=== PATIENT | female | born 1990 | race Caucasian/White ===

== ENCOUNTER 2022-01-03 22:38 | Emergency (ER) | payer MEDICAID, SELFPAY ==
[2022-01-03 23:00] VITALS: BP 132/69; PULSE 74; RESP 16; TEMP 36.2; O2SAT 100; BMI 48.1
--- NOTE | 2022-01-03 23:40 | ED.GENADULT ---
HPI - General Adult General Chief complaint: Chest Pain Stated complaint: Headache, chest pain Time Seen by Provider: 01/03/22 23:25 History of Present Illness HPI narrative: 31-year-old woman here with significant other with numerous complaints. She is having trouble sleeping. She has kids at home she needs to attend to. See his complaining of chest pain, not necessarily pleuritic, shortness of breath, dizziness, abdominal pain. Was recently diagnosed with delayed gastric emptying. It sounds as though she has an appointment at the end of the month with Gastroenterology in the [facility]-she is not exactly sure with who. She is thirsty. No dysuria frequency urgency. She reports having had a cholecystectomy later inquiry. Pending also a sleep study at the end of the month. Sleep in aided with quetiapine in the past but it has been 5 months since she took it, sounds like dosed to 300 mg. She was just too goofy in the morning she says. She was able to get sleep though. Related Data Home Medications Medication Instructions Recorded Confirmed famotidine 40 mg tablet mg 01/03/22 ibuprofen 800 mg tablet mg 01/03/22 omeprazole 40 mg capsule,delayed mg 01/03/22 release ondansetron 4 mg disintegrating mg 01/03/22 tablet propranolol 20 mg tablet mg 01/03/22 sertraline 100 mg tablet mg 01/03/22 Allergies Allergy/AdvReac Type Severity Reaction Status Date / Time No Known Drug Allergies Allergy Verified 01/03/22 23:23 [facility] Medical History (Updated 01/04/22 @ 02:42 by Lgoan Christianson MD) Gastritis Hypokalemia Social History Smoking Status: Never smoker How often do you have a drink containing alcohol: never AUDIT-C Alcohol total score: 0 Non-prescribed substance use: denies use Exam Narrative: Exam Narrative: NAD. Purple hair. Numerous piercings. Tattoos. 3 in elaborately-constructed nails. Sclera is a little injected. In breathing easily. Lungs are clear. Oropharynx with a tongue piercing. Moist. Neck is supple without LA. Cardiovascular with regular rate and rhythm no murmur rub or gallop. Abdomen is obese. Soft. Nontender though she does report a little bit of flank discomfort to percussion. Const: Vital Signs, click to edit/add: Vital Signs - 24 hr 01/03/22 23:00 Temperature 97.1 F L Pulse Rate [Left P ulse Oximeter] 74 Respiratory Rate 16 Blood Pressure [Le ft Upper Arm] 132/69 Pulse Oximetry 100 Oxygen Delivery Me thod Room Air Documenting provider has reviewed patient's vital signs: yes Course Course Hospital Course: I have reviewed EKG with normal sinus at 74. I also discussed that vitals are reassuring. I discussed giving her fluids medicine to help her with nausea and dizziness beyond her Zofran and meclizine. She wanted to make sure we did labs as well. Reevaluation(s) Reevaluation #1: Overall improved. Laboratory evaluation is not inconsistent with post cholecystectomy and likely fatty liver. Urinalysis however with some nitrate present and blood. She is otherwise though asymptomatic. We will culture the urine. Vital Signs Vital signs: Initial Vital Signs Temperature 97.1 F L 01/03/22 23:00 Temperature Source Temporal Artery Scan 01/03/22 23:00 Pulse Rate 74 01/03/22 23:00 Pulse Rhythm 01/03/22 23:00 Respiratory Rate 16 01/03/22 23:00 Blood Pressure 132/69 01/03/22 23:00 Blood Pressure Mean 90 01/03/22 23:00 Blood Pressure Position Semi-Fowlers 01/03/22 23:00 Pulse Oximetry 100 01/03/22 23:00 Oxygen Delivery Method 01/03/22 23:00 Vital Signs Temperature 97.1 F L 01/03/22 23:00 Pulse Rate 74 01/03/22 23:00 Respiratory Rate 16 01/03/22 23:00 Blood Pressure 132/69 01/03/22 23:00 Pulse Oximetry 100 01/03/22 23:00 Oxygen Delivery Method 01/03/22 23:00 Temperature 97.1 F L 01/03/22 23:00 Pulse Rate 74 01/03/22 23:00 Respiratory Rate 16 01/03/22 23:00 Blood Pressure 132/69 01/03/22 23:00 Pulse Oximetry 100 01/03/22 23:00 Oxygen Delivery Method 01/03/22 23:00 Medical Decision Making MDM Narrative Medical decision making narrative: Urine culture pending. Holding on treatment as asymptomatic. Would treat convincing culture. Lab Data Labs: Lab Results 10/01/22 10/01/22 10/01/22 Range/Units 00:16 00:16 00:16 D-Dimer Quant (PE/DVT) 0.58 H (0.00-0.50) ug/ml Sodium 139 (135-149) mmol/L Potassium 5.3 H (3.6-5.1) mmol/L Chloride 105 (96-114) mmol/L Carbon Dioxide 26 (20-32) mmol/L BUN 13 (5-24) mg/dL Creatinine 0.6 (0.5-1.5) mg/dL Estimated Creat Clear 115.16 Estimated GFR 121 ml/min Glucose 80 (60-115) mg/dL Calcium 8.9 (8.4-10.6) mg/dL Total Bilirubin 1.8 H (0.1-1.5) mg/dL Direct Bilirubin 1.5 H (0.0-0.5) mg/dL AST 70 H (12-35) U/L ALT 22 (4-35) U/L Alkaline Phosphatase 98 (40-150) U/L C-Reactive Protein 0.9 (0.5-1.0) mg/dL Total Protein 8.7 H (6.0-8.3) g/dL Albumin 4.8 (3.3-5.0) g/dL Lipase 131 (23-300) U/L HCG, Qual (Negative) Urine Color (Yellow) Urine Appearance (Clear) Urine pH (5.0-8.5) Ur Specific [place] (1.000-1.030) Urine Protein (Negative) Urine Glucose (UA) (Negative) Urine Ketones (Negative) Urine Blood (Negative) Urine Nitrite (Negative) Urine Bilirubin (Negative) Urine Urobilinogen (0.2-1.0) Ur Leukocyte Esterase (Negative) Urine RBC (0-2) Urine WBC (0-5) Ur Squamous Epith Cells (None-Few) Urine Bacteria (None) SARS-CoV-2 (PCR) (Negative) 01/03/22 01/03/22 01/03/22 Range/Units 00:16 00:44 00:44 D-Dimer Quant (PE/DVT) (0.00-0.50) ug/ml Sodium (135-149) mmol/L Potassium (3.6-5.1) mmol/L Chloride (96-114) mmol/L Carbon Dioxide (20-32) mmol/L BUN (5-24) mg/dL Creatinine (0.5-1.5) mg/dL Estimated Creat Clear Estimated GFR ml/min Glucose (60-115) mg/dL Calcium (8.4-10.6) mg/dL Total Bilirubin (0.1-1.5) mg/dL Direct Bilirubin (0.0-0.5) mg/dL AST (12-35) U/L ALT (4-35) U/L Alkaline Phosphatase (40-150) U/L C-Reactive Protein (0.5-1.0) mg/dL Total Protein (6.0-8.3) g/dL Albumin (3.3-5.0) g/dL Lipase (23-300) U/L HCG, Qual Negative (Negative) Urine Color Brown A (Yellow) Urine Appearance Cloudy A (Clear) Urine pH 5.5 (5.0-8.5) Ur Specific [place] >= 1.030 (1.000-1.030) Urine Protein 3+ A (Negative) Urine Glucose (UA) Negative (Negative) Urine Ketones Negative (Negative) Urine Blood 3+ A (Negative) Urine Nitrite Positive A (Negative) Urine Bilirubin 1+ A (Negative) Urine Urobilinogen 1.0 (0.2-1.0) Ur Leukocyte Esterase Trace A (Negative) Urine RBC 50-100 A (0-2) Urine WBC 0-2 (0-5) Ur Squamous Epith Cells Few (None-Few) Urine Bacteria Few A (None) SARS-CoV-2 (PCR) Negative SARS-CoV-2 (Negative) ECG Data Attestation: I personally reviewed and interpreted this ECG as follows: (Normal sinus rhythm rate of 74) Discharge Plan Discharge Clinical Impression: Insomnia, Malaise Patient Disposition: Home w/ Parent or Adult Condition: Improved Additional Instructions: Given the lightheadedness you were describing, be sure to stay well hydrated. Please follow-up with your appointments with Gastroenterology and sleep study this month as scheduled. You might consider returning again to your Seroquel/Quetiapine for a sleep aid, but taking half the dose that you were taking before. Dado el mareo que estabas describiendo, aseg?rate de mantenerte roxy hidratado. Faye un seguimiento con bekah citas con Gastroenterolog?a y estudio del katiuska?o jori mes seg?n lo programado. Podr?a considerar volver a beltran Seroquel/Quetiapina josafat ayuda para dormir, bess tomando la mitad de la dosis que estaba tomando antes. Prescriptions: No Action ibuprofen 800 mg tablet famotidine 40 mg tablet sertraline 100 mg tablet Label Comments: TAKE 1/2 TABLET BY MOUTH DAILY FOR 1 WEEK THEN 1 DAILY FOR 1 WEEK THEN 1.5 TABLETS DAILY omeprazole 40 mg capsule,delayed release(DR/EC) propranolol 20 mg tablet ondansetron 4 mg tablet,disintegrating Follow Up/Referrals: Merline Barrera MD [Primary Care Provider] - Stand Alone Forms: [facility] Info Instructions
[2022-01-04] MEDS: LORazepam 2 MG/ML inj 0.5 MG IVP (00:50)
[2022-01-04] MEDS: 0.9 % SODIUM CHLORIDE 1000 ml 1,000 ML IV (00:50)
[2022-01-04 01:06] LABS: Albumin* 4.8 g/dL (3.3-5.0)
[2022-01-04 01:07] LABS: Chloride* 105 mmol/L (96-114); Potassium* 5.3 mmol/L (3.6-5.1); Sodium* 139 mmol/L (135-149)
[2022-01-04 01:09] LABS: Alanine Aminotransferase* 22 U/L (4-35); Alkaline Phosphatase* 98 U/L (40-150); Aspartate Amino Transferase* 70 U/L (12-35); Bilirubin Direct* 1.5 mg/dL (0.0-0.5); Bilirubin Total* 1.8 mg/dL (0.1-1.5); Creatinine* 0.6 mg/dL (0.5-1.5); Est. Creatinine Clearance* 115.16; Estimated Glomerular Filt Rate 121 ml/min; Lipase* 131 U/L (23-300); Total Protein* 8.7 g/dL (6.0-8.3)
[2022-01-04 01:10] LABS: Blood Urea Nitrogen* 13 mg/dL (5-24); Carbon Dioxide* 26 mmol/L (20-32)
[2022-01-04 01:11] LABS: Calcium* 8.9 mg/dL (8.4-10.6); Glucose* 80 mg/dL (60-115)
[2022-01-04 01:12] LABS: HCG Qualitative* Negative (Negative)
[2022-01-04 01:13] LABS: C Reactive Protein* 0.9 mg/dL (0.5-1.0)
[2022-01-04 01:14] LABS: Appearance Urine Cloudy (Clear); Bilirubin Urine 1+ (Negative); Blood Urine 3+ (Negative); Color Urine Brown (Yellow); Glucose Urine Negative (Negative); Ketones Urine Negative (Negative); Leukocyte Esterase Urine Trace (Negative); Nitrite Urine Positive (Negative); Protein Urine 3+ (Negative); Specific Gravity Urine >= 1.030 (1.000-1.030); pH Urine 5.5 (5.0-8.5)
[2022-01-04 01:14] LABS: SARS PCR* Negative SARS-CoV-2 (Negative)
[2022-01-04 01:15] LABS: D Dimer Quantitative* 0.58 ug/ml (0.00-0.50)
[2022-01-04 01:23] LABS: Bacteria Urine Few; RBC Urine 50-100 (0-2); Squamous Epithelial Cell Urine Few (None-Few); WBC Urine 0-2 (0-5)
== END 2022-01-04 02:51 | disposition home or self-care (01) ==
PROVIDERS: Emergency Provider Family Medicine; PCP Family Medicine
DX: G47.00 Insomnia, unspecified (principal); R53.81 Other malaise
CPT/HCPCS: 36415; 80048; 80076; 81001; 83690; 84703; 85379; 86140; 87086; 87635; 93005; 94761; 96361; 96374; 99283; 99284; J2060; J7030

== ENCOUNTER 2022-01-06 20:07 | Outpatient (CLI) | payer MEDICAID, SELFPAY | END 2022-01-06 20:08 | disposition home or self-care (01) | PROVIDERS: PCP Family Medicine; Visit Provider Internal Medicine | DX: G47.33 Obstructive sleep apnea (adult) (pediatric) (principal) | CPT/HCPCS: 95810 ==

== ENCOUNTER 2022-03-16 07:49 | Emergency (ER) | payer MEDICAID, SELFPAY ==
[2022-03-16 07:53] VITALS: BP 135/88; PULSE 100; RESP 18; TEMP 36.3; BMI 46.0
[2022-03-16 08:33] LABS: Appearance Urine Clear (Clear); Bilirubin Urine 1+ (Negative); Blood Urine Negative (Negative); Color Urine Yellow (Yellow); Glucose Urine Negative (Negative); Ketones Urine 2+ (Negative); Leukocyte Esterase Urine Negative (Negative); Nitrite Urine Negative (Negative); Protein Urine Negative (Negative); Urobilinogen Urine 0.2 (0.2-1.0); pH Urine 5.5 (5.0-8.5)
[2022-03-16 08:38] LABS: RBC Urine 0-2 (0-2); Squamous Epithelial Cell Urine Few (None-Few); WBC Urine 0-2 (0-5)
--- NOTE | 2022-03-16 08:45 | CRLHL7_ITS ---
For Patients: As a result of the Century Cures Act, medical imaging exams and procedure reports are released immediately into your electronic medical record. You may view this report before your referring provider. If you have questions, please contact your health care provider. INDICATION: First trimester scan, establish dates. COMPARISON: None. TECHNIQUE: Real-time hooks-scale imaging of the pelvis was performed. FINDINGS: A small gestational sac is present within the endometrial canal with a mean sac diameter of 8.6 millimeters corresponding to a 5 week 3 day gestation. 3 millimeter yolk sac is present. No pole. No ectopic . No pelvic free fluid. Ovaries normal. IMPRESSION: 5 week 3 day gestational sac in the endometrial canal without pole. No ectopic. Follow-up ultrasound in 11-14 days recommended. Dictated by Logan Felix MD @ 03/16/2022 10:30:55 AM (Electronically Signed)
[2022-03-16] MEDS: 0.9 % SODIUM CHLORIDE 1000 ml 1,000 ML IV (09:00)
[2022-03-16] MEDS: MORPHINE 4 MG/ML INJ IVP (09:00)
[2022-03-16 09:05] LABS: Basophils Absolute Auto 0.02 K/uL (0.00-0.30); Basophils Percent Auto 0.2 % (0.0-3.0); Eosinophils Absolute Auto 0.05 K/uL (0.00-0.50); Eosinophils Percent Auto 0.5 % (0.0-7.0); Hemoglobin* 13.6 gm/dL (12.0-16.0); Immature Granulocytes Abs Auto 0.02 K/uL (0.00-0.30); Immature Granulocytes Pct Auto 0.2 %; Lymphocytes Percent Auto 18.9 % (20-44); Mean Corpuscular HGB Conc 33 gm/dL (32-36); Mean Corpuscular Hemoglobin 29 pg (26-34); Mean Corpuscular Volume 89 fL (80-100); Monocytes Percent Auto 7.2 % (0.0-11.0); Platelet Count* 342 K/uL (140-440); RDW Coefficient of Variation % 13.5 % (11.5-15.5); Red Blood Count 4.62 m/uL (4.00-5.20); White Blood Count* 9.47 K/uL (4.50-11.00)
[2022-03-16 09:12] LABS: Slide Review Reflex No
--- OUTSIDE RECORDS SUMMARY | 2022-03-16 09:12 | XMS_ITS | Clinical Summary ---
:1990 Author Organization [facility] Address [address] [place] [address] Care Team Providers Name Role Phone [facility] Unavailable [phone] Doctor, No Primary Care Provider Unavailable Allergies No known active allergies Medications Medication Sig Dispensed Refills Start Date End Date Status amitriptyline (ELAVIL) Take 1 tablet (10 0 2 Active 10 mg oral tablet mg) by mouth at bedtime. dicyclomine (BENTYL) Take 1 tablet (20 0 02/10/2022 Active 20 mg oral tablet mg) by mouth three times a day. famotidine (PEPCID) 40 Take 1 tablet (40 0 2 Active mg oral tablet mg) by mouth once daily. gabapentin (NEURONTIN) Take 1 capsule 0 02/04/2022 Active 300 mg oral capsule (300 mg) by mouth Twice a Day. Take 1 capsule daily in the morning, 1 capsule daily in the afternoon, and 3 capsules nightly before bed. lubiprostone (AMITIZA) Take 1 capsule (24 0 02/11/20 22 Active 24 mcg oral Cap mcg) by mouth twice a day before breakfast and dinner. metFORMIN (GLUCOPHAGE) Take 1 tablet (500 0 03/03/20 21 Active 500 mg oral tablet mg) by mouth twice a day with breakfast and dinner. propranoloL (INDERAL) Take 1 tablet (20 0 03/03/2021 Active 20 mg oral tablet mg) by mouth twice a day. QUEtiapine (SEROQUEL) Take 1 tablet (300 0 1 Active 300 mg oral tablet mg) by mouth at bedtime. sertraline (ZOLOFT) Take 1.5 tablets 0 02/04/2022 Active 100 mg oral tablet (150 mg) by mouth once daily. sucralfate (CARAFATE) Take 1 tablet (1 0 12/13/2021 Active 1 gram oral tablet g) by mouth three times a day before meals and at bedtime. gabapentin (NEURONTIN) Take 3 capsules 0 Active 300 mg oral capsule (900 mg) by mouth at bedtime. omeprazole (PRILOSEC) Take 1 capsule (40 0 1 Active 40 mg oral delayed mg) by mouth every release capsule morning before breakfast. Active Problems Problem Noted Date Fall from slipping on ice 02/19/2022 Fall due to slipping on ice or snow, initial encounter 02/19/2022 Puncture wound of right thigh 02/19/2022 IUFD (intrauterine ) 12/03/2012 Migraine headache 12/03/2012 Hypertension in 12/03/2012 Resolved Problems Problem Noted Date Resolved Date Dysuria in 11/15/2012 12/03/2012 Encounters Date Type Specialty Care Team Description 02/19/2022 Emergency Emergency Medicine Reshma Cook, Fall due to slipping on MD ice or snow, [facility]22 Travel from Last 3 Months Family History Medical History Relation Comments Arthritis Maternal Grandmother Diabetes Maternal Grandmother Cancer Mother barn worker cancer of unknow n origin to patient Relation Status Comments Maternal Grandmother Mother Social History Tobacco Use Types Packs/Day Years Used Date Smoking Tobacco: Every Day Smokeless Tobacco: Never Alcohol Use Standard Drinks/Week Comments No 0 (1 standard drink = 0.6 oz pure alcoho l) Sex Assigned at Date Recorded Not on file COVID-19 Exposure Response Date Recorded In the last 10 days, have you been in contact with No / Unsu re 02/19/2022 3:48 PM [facility] someone who was confirmed or suspected to have Coronavirus/COVID-19? Last Filed Vital Signs Vital Sign Reading Time Taken Comments Blood Pressure 131/90 02/19/2022 6:00 PM [facility] [employer] Pulse 79 02/19/2022 6:00 PM [facility] [employer] Temperature 36.5 ??C (97.7 ??F) 02/19/2022 4:09 PM [facility] Respiratory Rate 21 02/19/2022 6:00 PM [facility] Oxygen Saturation 99% 02/19/2022 6:00 PM [facility] [employer] Inhaled Oxygen Concentration - - Weight 112.5 kg (248 lb) 12/01/2012 10:03 AM CDT Height 162.6 cm (5' 4) 12/01/2012 10:03 AM CDT Body Mass Index 42.57 12/01/2012 10:03 AM CDT Plan of Treatment Health Maintenance Due Date Last Done Comments Hepatitis C Screening 1990 Pap Smear 1990 Pneumococcal <65 (1 - PCV) 1994 COVID-19 Vaccine (3 - Booster for 03/11/2021 01/14/2021, Pfizer series) Adult Tetanus Booster 01/29/2027 01/29/2017, 11/10/2012 Influenza Vaccine Completed 12/10/2021, 01/28/2021, 03/13/2020, Additional history exists Procedures Procedure Name Priority Date/Time Associated Diagnosis Comme nts SARS-COV-2 STAT 02/19/2022 5:04 PM Results f or this DETECTION BY ALISE [facility] [employer] [employer] [facility] procedure are in PCR the results section. from Last 3 Months Results COVID-19 (Screening) (02/19/2022 5:04 PM [facility] [employer] [facility]) Analysis Performed At Patho logist Time Signature SARS-CoV-2 SARS-CoV-2 SARS-CoV-2 REBECCA ALISE 02/20/2022 ONAGA RNA by PCR RNA Not RNA Not 6800 2:06 PM [facility] Detected Detected [facility] Specimen (Source) Anatomical Location / Collection Collection Jeffrey e Received Time Laterality Method / Volume Nasopharynx NASOPHARYNGEAL 02/19/2022 5:04 02/19/2022 STRUCTURE / Unknown PM [facility] 5:16 PM [facility] [employer] [employer] [facility] Alonzo Frias PA-C MICROBIOLOGY ORDERABLE Performing Organization Address City/State/ZIP Code Phon e Number [facility] [address] [place] [address] LABORATORY from Last 3 Months Insurance Payer Benefit Plan / Subscriber ID Effective Dates Phone Addre ss Type Group UCARE UCARE [id number] 2022-Present [phone] [place] [address] Advance Directives For more information, please contact: [phone] Latest Code Status on File Code Status Date Activated Date Inactivated Comments Full Code 12/02/2012 1:52 PM 12/05/2012 6:57 PM Question Answer Comments How was code status determined? Patient Care Teams Hob Grinder Relationship Specialty Start Date End Date [facility] PCP - [facility] [place] [address] [place] [phone] Doctor, No PCP - General Radiology 02/19/22 No ad
--- OUTSIDE RECORDS SUMMARY | 2022-03-16 09:12 | XMS_ITS | Encounter Summary ---
:1990 Author Organization [facility] Address [address] [place] [address] Care Team Providers Name Role Phone Unavailable Primary Care Provider Unavailable Reason for Visit Reason Comments Advice Only missed period Appointment Request (Routine) - Closed Specialty Diagnoses / Procedures Referred By Contact Refer red To Contact Obstetrics and Gynecology Referral ID Status Reason Start Date Expiration Date Visits Requ ested Visits Authorized [id number] Closed 10/01/2020 10/01/2021 1 1 Encounter Details Date Type Department Care Team Description 10/16/2020 Office Visit Department of Saul Martinez Infertilit y Female Obstetrics and Hernandez (Primary Dx) Gynecology in [address] [place] [id number] [place], [place] [phone] (Work) [phone] Social History Tobacco Use Types Packs/Day Years Used Date Smoking Tobacco: Every Day Cigarettes Smokeless Tobacco: Never Sex Assigned at Date Recorded Not on file documented as of this encounter Last Filed Vital Signs Vital Sign Reading Time Taken Comments Blood Pressure 102/76 10/16/2020 1:05 PM CDT Pulse - - Temperature - - Respiratory Rate - - Oxygen Saturation - - Inhaled Oxygen Concentration - - Weight 134 kg (294 lb 13.8 oz) 10/16/2020 1:05 PM CDT Height - - Body Mass Index 49.73 08/16/2020 10:22 AM CDT documented in this encounter Progress Notes Saul Martinez M.D. - 10/16/2020 1:15 PM CDT CLINIC NOTE SUBJECTIVE CHIEF COMPLAINT/REASON FOR VISIT Chief Complaint Patient presents with ??? Advice Only missed period HISTORY OF PRESENT ILLNESS Kayleigh Stahl is a 30 y.o. who presents for follow-up, previously seen August 16. She reports deep slightly left of center pain for the past week as well as a missed period. From prior history: Bilateral constant though at times sharp pelvic pain x4 months. She has had this in the past as well. Likely hemorrhagic cyst seen on recent pelvic US. Dyspareunia when cyst are present. No pain with sex otherwise. Prior left ovarian cystectomy in 2012. She reports having several similar cysts in the past. She was advised by her primary care provider to use hormonal menstrual suppression to reduce the recurrence of the cyst however she would like to get . Has been tryingfor one year. New partner with no proven fertility. She has 3 prior pregnancies with 2 different FOBs, no prior issues with fertility. She removed her IUD and has been with her current partner for the past year they have sex daily. Historically periods are monthly, 5d VB, pain in first 3d. Periods have always been normal. No pelvic surgical history other than the noted cystectomy in 2013. No history of pelvic inflammatory disease. Medical history is notable for obesity however she states she has been obese for a long time, though she has gained about 20 lb in the last year. She is up-to-date on Papand STI screening. Recent diabetes screen was negative. OBSTETRICAL HISTORY: P3002 with hx of term IUFD GYNECOLOGIC HISTORY: Patient's last menstrual period was 08/30/2020 (exact date). MEDICAL HISTORY No past medical history on file. SURGICAL HISTORY No past surgical history on file. FAMILY HISTORY No family history on file. SOCIAL HISTORY Social History Socioeconomic History ??? Marital status: Single Spouse name: None ??? Number of children: None ??? Years of education: None ??? Highest education level: None Occupational History ??? None Tobacco Use ??? Smoking status: Current Every Day Smoker Types: Cigarettes ??? Smokeless tobacco: Never Used Vaping Use ??? Vaping Use: never used Substance and Sexual Activity ??? Alcohol use: None ??? Drug use: None ??? Sexual activity: None Other Topics Concern ??? None Social History Narrative ??? None Social Determinants of Health Financial Resource Strain: ??? Difficulty of Paying Living Expenses: Food Insecurity: ??? Worried About Running Out of Food in the Last Year: ??? Ran Out of Food in the Last Year: Transportation Needs: ??? Lack of Transportation (Medical): ??? Lack of Transportation (Non-Medical): Physical Activity: ??? Days of Exercise per Week: ??? Minutes of Exercise per Session: Stress: ??? Feeling of Stress : Social Connections: ??? Frequency of Communication with Friends and Family: ??? Frequency of Social Gatherings with Friends and Family: ??? Attends Restoration Services: ??? Active Member of Clubs or Organizations: ??? Attends Club or Organization Meetings: ??? Marital Status: Intimate Partner Violence: ??? Fear of Current or Ex-Partner: ??? Emotionally Abused: ??? Physically Abused: ??? Sexually Abused: ALLERGIES/CONTRAINDICATIONS Patient has no known allergies. CURRENT MEDICATIONS Current Outpatient Medications Medication Sig Dispense Refill ??? busPIRone (BUSPAR) 10 mg tablet ??? ibuprofen (ADVIL,MOTRIN) 600 mg tablet Take 600 mg by mouth every 6 (six) hours as needed for pain. ??? omeprazole (PriLOSEC OTC) [address] tablet TAKE 1 TABLET BY MOUTH EVERY DAY BEFORE A MEAL ??? propranoloL (INDERAL) 20 mg tablet Take 20 mg by mouth 2 (two) times a day. No current facility-administered medications for this visit. REVIEW OF SYSTEMS A 10 point Review of Systems was negative, other than as noted in the History of Present Illness. OBJECTIVE PHYSICAL EXAMINATION VITAL SIGNS Vitals: 10/16/20 1305 BP: 102/76 Weight: 134 kg Body mass index is 49.73 kg/m??. General: Alert, oriented, appropriately interactive, in no acute distress. Abdomen: Soft, mid pelvic tenderness with remainder of abdomen nontender, nondistended. No masses. Musculoskeletal: Normal gait. Symmetric movements of upper extremities and lower extremities. Lower Extremities: Nontender, no edema. DIAGNOSTICS LABS: Recent Results (from the past 72 hour(s)) Test, POCT, Urine (lab) Collection Time: 10/16/20 1:31 PM Result Value Test, POCT, U Negative Bacterial Culture, Aerobic + Susc, Urine Collection Time: 10/16/20 1:31 PM Specimen: Urine, Midstream Specimen Source Site: Urine Result Value Urine Culture Mixed gennaro. (A) Hemoglobin 14.5 Progesterone undetectable TSH 1.5 Prolactin 11.4 Estradiol 37 FSH 6.2 LH 2.3 CMP wnl other than elevated BG A1c 5.9 STI swabs negative (06/23) Pap NILM, HPV- (06/23) ?? Pelvic ultrasound 07/23/2020 Uterus: 9.2 x 5.5 x 4.5 cm. ??Normal echotexture of the myometrium. ??No masses. ?? Endometrium: Transvaginal imaging was performed to better evaluate the endometrium. ??Fourteen mm inthickness. The endometrium is mildly heterogeneous in appearance. No sign of endometrial mass or fluid. ?? Right ovary: 4.4 x 3.3 x 4.0 cm. ??There is a 3.5 x 2.3 x 3.4 cm cystic lesion on the right ovary containing debris and septations. Normal arterial blood flow. ?? Left ovary: Not clearly seen. Cul-de-sac: No significant free fluid. ? IMPRESSION: Likely hemorrhagic cyst on the right ovary. The left ovary was not clearly seen on this exam. ?? The following portions of the patient's history were reviewed and updated as appropriate: allergies,current medications, family history, medical history, social history, surgical history and problem list. ASSESSMENT / PLAN Kayleigh Stahl is a 30 y.o. who presents for follow-up as well as recently missed menstrualcycle as well as pelvic pain. Point of care urine test was negative today ruling out ectopic . Concern for possible UTI based on symptoms however urine culture showed mixed gennaro. 1. Infertility Female - Suspecting male factor based on history including normal prior pregnancies with different partners, likely normal ovulatory cycles based on history, however recent day 21 lab was negative for ovulation. Planning for partner to collect semen analysis. Would consider ovulation induction as next step if semen it is normal. - Test, POCT, Urine (lab) - Bacterial Culture, Aerobic + Susc, Urine; Future - Bacterial Culture, Aerobic + Susc, Urine Saul Martinez M.D. 10/17/2020 9:19 PM CDT documented in this encounter Plan of Treatment Not on filedocumented as of this encounter Procedures Procedure Name Priority Date/Time Associated Diagnosis Comme nts BACTERIAL CULTURE, Routine 10/16/2020 1:31 PM Infertility Fema le Results for this AEROBIC + SUSC, CDT procedure ar e in URINE the results section. TEST, Routine 10/16/2020 1:31 PM Infertility Female Results for this POCT, U (LAB) CDT procedure are in the results section. documented in this encounter Results (ABNORMAL) Bacterial Culture, Aerobic + Susc, Urine (10/16/2020 1:31 PM CDT) Analysis Performed At Patho logist Time Signature Urine Culture Mixed 10/17/2020 MKTO gennaro. (A) 4:15 PM CDT Specimen Anatomical Collection Method Collection Time Receive d Time (Source) Location / / Volume Laterality Urine (Urine, 10/16/2020 1:31 PM 10/17/19 21 7:16 Midstream) CDT PM CDT Comment: Specimen Source Site: Urine Saul Martinez M.D. LAB MICROBIOLOGY - GENERAL O RDERABLES Performing Organization Address City/[facility]/ZIP Code Phon e Number [facility]- [address] [place] [id number] [place] [address] System [address] Test, POCT, Urine (lab) (10/16/2020 1:31 PM CDT) P athologist Signature Negative 10/16/2020 FB60 Test, POCT, U 1:53 PM CDT Specimen Anatomical Collection Method Collection Time Receive d Time (Source) Location / / Volume Laterality Urine (Urine, 10/16/2020 1:31 PM 10/17/19 21 1:42 Clean Catch) CDT PM CDT Saul Martinez M.D. LAB POCT ORDERABLES - DEVICE Performing Organization Address City/[facility]/ZIP Code Phon e Number [address] [place] [address] [facility] [address] [place] [address] System [address] documented in this encounter Visit Diagnoses Diagnosis Infertility Female - Primary documented in this encounter
--- OUTSIDE RECORDS SUMMARY | 2022-03-16 09:12 | XMS_ITS | Encounter Summary ---
:1990 Author Organization [facility] Address [address] [place] [address] Care Team Providers Name Role Phone Elsewhere, Pcp Primary Care Provider Unavailable Encounter Details Date Type Department Care Team Description 10/16/2020 Clinical Communication Department of Saul Martinez, Obstetrics and MLarisa Gynecology in [address] [place] [id number] [place], [place] [phone] (Work) [phone] Social History Tobacco Use Types Packs/Day Years Used Date Smoking Tobacco: Every Day Cigarettes Smokeless Tobacco: Never Sex Assigned at Date Recorded Not on file documented as of this encounter Miscellaneous Notes Telephone Encounter - Rowena Palmer RJazz - 10/16/2020 3:13 PM CDT Spoke with patient. Please see result note for details. Telephone Encounter - Jose Sharma - 10/16/2020 2:55 PM CDT Patient called in, returning call from MANAGER HOME nurse regarding results. Unable to get a hold of nurse. Please call patient back via student records specialist. documented in this encounter Plan of Treatment Not on filedocumented as of this encounter Visit Diagnoses Not on filedocumented in this encounter Care Teams Gang Boss Relationship Specialty Start Date End Date Elsewhere, Pcp PCP - General Family Medicine 10/24/20 documented as of this encounter
--- OUTSIDE RECORDS SUMMARY | 2022-03-16 09:12 | XMS_ITS | Encounter Summary ---
:1990 Author Organization [facility] Address [address] [place] [address] Care Team Providers Name Role Phone Elsewhere, Pcp Primary Care Provider Unavailable Encounter Details Date Type Department Care Team Description 10/24/2020 Hospital Encounter Department of Burt Winchester S, Pain Le ft Lower Quadrant; Laboratory Medicine CONSTRUCTION STONEMASON, C.N.P. Pain Pel bowen Female; in [place], Discharge Vagi nal [place] [address] [place] [id number] Social History Tobacco Use Types Packs/Day Years Used Date Smoking Tobacco: Every Day Cigarettes Smokeless Tobacco: Never Sex Assigned at Date Recorded Not on file documented as of this encounter Medications at Time of Discharge Medication Sig Dispensed Refills Start Date End Date busPIRone (BUSPAR) 10 mg 0 07/09/2020 tablet ibuprofen (ADVIL,MOTRIN) Take 600 mg by mouth 0 600 mg tablet every 6 (six) hours as needed for pain. omeprazole (PriLOSEC OTC) TAKE 1 TABLET BY 0 03/0 12/[address] tablet MOUTH EVERY DAY BEFORE A MEAL propranoloL (INDERAL) 20 Take 20 mg by mouth 2 0 08/13/2020 mg tablet (two) times a day. documented as of this encounter Plan of Treatment Not on filedocumented as of this encounter Procedures Procedure Name Priority Date/Time Associated Diagnosis Comme nts CBC WITH Routine 10/24/2020 9:18 AM Pain Left Lower Result s for this DIFFERENTIAL, B CDT Quadrant procedure are in Pain Pelvic Fema le the results Discharge Vaginal section. documented in this encounter Results (ABNORMAL) CBC with Differential, Blood (10/24/2020 9:18 AM CDT) [facility] Method Time Signature Hemoglobin 14.7 11.6 - 10/24/2020 FB60 15.0 g/dL 9:42 AM CDT Hematocrit 43.8 35.5 - 10/24/2020 FB60 44.9 % 9:42 AM CDT Erythrocytes 4.96 3.92 - 10/24/2020 FB60 5.13 9:42 AM CDT x10(12)/L MCV 88.3 78.2 - 10/24/2020 FB60 97.9 fL 9:42 AM CDT RBC Distrib Width 14.2 12.2 - 10/24/2020 FB60 16.1 % 9:42 AM CDT Platelet Count 364 157 - 371 10/24/2020 FB60 x10(9)/L 9:42 AM CDT Leukocytes 15.1 (H) 3.4 - 9.6 10/24/2020 FB60 x10(9)/L 9:42 AM CDT Neutrophils 10.18 (H) 1.56 - 10/24/2020 FB60 6.45 9:42 AM CDT x10(9)/L Lymphocytes 3.67 (H) 0.95 - 10/24/2020 FB60 3.07 9:42 AM CDT x10(9)/L Monocytes 0.98 (H) 0.26 - 10/24/2020 FB60 0.81 9:42 AM CDT x10(9)/L Eosinophils 0.20 0.03 - 10/24/2020 FB60 0.48 9:42 AM CDT x10(9)/L Basophils 0.03 0.01 - 10/24/2020 FB60 0.08 9:42 AM CDT x10(9)/L Specimen Anatomical Collection Method Collection Time Receive d Time (Source) Location / / Volume Laterality Blood (Blood, 10/24/2020 9:18 AM 10/25/19 9:18 Venous) CDT AM CDT Burt Winchester APRN, C.N.P. LAB BLOOD ADD-ON Performing Organization Address City/State/ZIP Code Phon e Number [facility]- [facility] [place] [address] [facility] [address] [place] [address] System in [place] [address] documented in this encounter Visit Diagnoses Diagnosis Pain Left Lower Quadrant Pain Pelvic Female Discharge Vaginal documented in this encounter Care Teams Gas Meter Repair Supervisor Relationship Specialty Start Date End Date Elsewhere, Pcp PCP - General Family Medicine 10/24/20 documented as of this encounter
--- OUTSIDE RECORDS SUMMARY | 2022-03-16 09:12 | XMS_ITS | Encounter Summary ---
:1990 Author Organization [facility] Address [address] [place] [address] Care Team Providers Name Role Phone Unavailable Primary Care Provider Unavailable Reason for Visit Reason Comments Pelvic Pain Appointment Request (Routine) - Closed Specialty Diagnoses / Procedures Referred By Contact Refer red To Contact Obstetrics and Gynecology Referral ID Status Reason Start Date Expiration Date Visits Requ ested Visits Authorized [id number] Closed 08/09/2020 08/09/2021 1 1 Encounter Details Date Type Department Care Team Description 08/16/2020 Comprehensive Visit Department of Saul Martinez Female Obstetrics and Hernandez Hagan (Primary Dx) Gynecology in [address] [place] [phone] [place] [address] [place], [place] (Work) [phone] Social History Tobacco Use Types Packs/Day Years Used Date Smoking Tobacco: Every Day Smokeless Tobacco: Never Tobacco Cessation: Counseling Given: Yes Sex Assigned at Date Recorded Not on file documented as of this encounter Last Filed Vital Signs Vital Sign Reading Time Taken Comments Blood Pressure 108/78 08/16/2020 10:22 AM CDT Pulse 68 08/16/2020 10:22 AM CDT Temperature - - Respiratory Rate 16 08/16/2020 10:22 AM CDT Oxygen Saturation - - Inhaled Oxygen Concentration - - Weight 137 kg (301 lb 2.4 oz) 08/16/2020 10:22 AM CDT Height 164 cm (5' 4.57) 08/16/2020 10:22 AM CDT Body Mass Index 50.79 08/16/2020 10:22 AM CDT documented in this encounter Patient Instructions Patient InstructionsSaul Martinez M.D. - 08/16/2020 10:30 AM CDT Present to lab on day 3 of your period. Also present to lab on day 21. documented in this encounter Progress Notes Saul Martinez M.D. - 08/16/2020 10:30 AM CDT Consult Note Consult requested by Radha Raines PA SUBJECTIVE CHIEF COMPLAINT/REASON FOR VISIT Chief Complaint Patient presents with ??? Pelvic Pain . HISTORY OF PRESENT ILLNESS Kayleigh Stahl is a 30 y.o. P3002 who presents in consultation for 4 month history of deep pelvic pain. She would also like to talk about fertility. Bilateral constant though at times sharp pelvic pain x4 months. She has had this in the past as well. Likely hemorrhagic cyst seen on recent pelvic US. Dyspareunia when cyst are present. No pain with sex otherwise. Prior left ovarian cystectomy in 2012. She reports having several similar cysts in the p ast. She was advised by her primary care provider to use hormonal menstrual suppression to reduce the recurrence of the cyst however she would like to get . Desires , has been trying for one year. New partner with no proven [...] history other than the noted cystectomy in 2012. No history of pelvic inflammatory disease. Medical history is notable for obesity however she states she has been obese for a long time, though she has gained about 20 lb in the last year. She is up-to-date on Pap and STI screening. Recent diabetes screen was negative. OBSTETRICAL HISTORY: P3002 with hx of term IUFD GYNECOLOGIC HISTORY: Patient's last menstrual period was 07/31/2020.. Menses as above MEDICAL HISTORY No past medical history on file. SURGICAL HISTORY No past surgical history on file. FAMILY HISTORY No family history on file. SOCIAL HISTORY Social History Socioeconomic History ??? Marital status: Single Spouse name: Not on file ??? Number of children: Not on file ??? Years of education: Not on file ??? Highest education level: Not on file Occupational History ??? Not on file Tobacco Use ??? Smoking status: Current Every Day Smoker ??? Smokeless tobacco: Never Used Vaping Use ??? Vaping Use: never used Substance and Sexual Activity ??? Alcohol use: Not on file ??? Drug use: Not on file ??? Sexual activity: Not on file Other Topics Concern ??? Not on file Social History Narrative ??? Not on file Social Determinants of Health Financial Resource Strain: [...] Gatherings with Friends and Family: ??? Attends Confucianism Services: ??? Active Member of Clubs or [...] Illness. OBJECTIVE PHYSICAL EXAMINATION VITAL SIGNS Vitals: 08/16/20 1022 BP: 108/78 Pulse: 68 Resp: 16 Weight: (!) 137 kg Height: 164 cm Body mass index is 50.79 kg/m??. General: Alert, oriented, appropriately interactive, in no acute distress. Cardiovascular: Regular rate and rhythm. Respiratory: Clear to auscultation bilaterally. Good effort, without distress. Abdomen: Soft, obese, nontender, nondistended. No masses. Musculoskeletal: Normal gait. Symmetric movements of upper extremities and lower extremities. Lower Extremities: Nontender, no edema. DIAGNOSTICS LABS: Hemoglobin 14.5 A1c 5.9 STI swabs negative (06/23) Pap NILM, HPV- (06/23) Pelvic ultrasound 07/23/2020 Uterus: 9.2 x 5.5 [...] was not clearly seen on this exam. The following portions of the patient's history were reviewed and updated as appropriate: allergies,current medications, family history, medical history, social history, surgical history and problem list. ASSESSMENT / PLAN Kayleigh Stahl is a 30 y.o. who presents in consultation as noted above. Pelvic pain - we discussed the nature and natural history of functional and hemorrhagic ovarian cysts. We discussed the mechanism of hormonal suppression. I would recommend combined hormonal contraception in the future when no longer desired fertility to suppress ovarian cyst recurrence. Her current pain is mild and we will watched the cyst for now. 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 It would seem that she has normal ovulatory cycles, and no history of fertility complications in the past. We will collect routine infertility laboratory evaluation which has been ordered. We also discussed possible HSG in the future. I am recommending male evaluation including semen analysis, however partners immigration status and lack of insurancecomplicate this. Labs to be collected on day 3 and day 21 of her next cycles. Follow-up pending lab results. - Follicle-Stimulating Hormone (FSH), Serum; Future - LH (Luteinizing Hormone); Future - Estradiol, Rapid, Immunoassay - (for rapid assessment of ovarian status); Future - Prolactin; Future - S-TSH (Thyroid-Stimulating Hormone - Sensitive); Future - Progesterone Level; Future Saul Martinez M.D. 08/16/2020 10:54 AM CDT documented in this encounter Plan of Treatment Not on filedocumented as of this encounter Results Progesterone Level (09/20/2020 1:32 PM CDT) athologist Signature Progesterone, S <0.20 See Note* 09/21/2020 DTL ng/mL 8:12 AM CDT Comment: Reference intervals are central 90th % o f healthy population. Follicular phase: <=0.89 ng/mL Ovulation: <=12 ng/mL Luteal phase: 1.8-24 ng/ml Post-menopausal: <0.20 ng/mL 1st Trimester: 11-44 ng/mL 2nd Trimester: 25-83 ng/mL 3rd Trimester: 58-214 ng/mL Specimen Anatomical Collection Method Collection Time Receive d Time (Source) Location / / Volume Laterality Blood (Blood, 09/20/2020 1:32 PM 09/22/19 21 7:43 Venous) CDT AM CDT Saul Martinez M.D. LAB BLOOD ADD-ON Performing Organization Address City/State/ZIP Code Phon e Number [facility] - [address] [place], [place] [address] [facility] [place] [address] Laboratories-[facility] [address] S-TSH (Thyroid-Stimulating Hormone - Sensitive) (09/03/2020 11:12 AM CDT) athologist Signature TSH, Sensitive 1.5 0.3 - 4.2 09/03/2020 [place] mIU/L 2:08 PM CDT Specimen Anatomical Collection Method Collection Time Receive d Time (Source) Location / / Volume Laterality Blood (Blood, 09/03/2020 11:12 09/03/2020 1:36 Venous) AM CDT PM CDT Saul Martinez M.D. LAB BLOOD ADD-ON Performing Organization Address City/State/ZIP Code Phon e Number [facility]- [address] [place] [address] [facility] [address] System in [place] [address] Prolactin (09/03/2020 11:12 AM CDT) athologist Signature Prolactin Total 11.4 4.8 - 23.3 09/04/2020 DTL ng/mL 8:20 AM CDT Comment: ----ADDITIONAL INFORMATION---- The testing method is an electrochemilum inescence assay manufactured by [employer] and performed on the Irma system. Values obtained with different assay met hods or kits may be different and cannot be used inte rchangeably. Test results cannot be interpreted as ab solute evidence for the presence or absence of malignant disease. Specimen Anatomical Collection Method Collection Time Receive d Time (Source) Location / / Volume Laterality Blood (Blood, 09/03/2020 11:12 09/04/2020 7:09 Venous) AM CDT AM CDT Saul Martinez M.D. LAB BLOOD ADD-ON Performing Organization Address City/State/ZIP Code Phon e Number [facility] - [address] [place], [place] [address] [facility] [place] [address] Laboratories-[facility] 200 [facility] Estradiol, Rapid, Immunoassay - (for rapid assessment of ovarian status) (09/03/2020 11:12 AM CDT) athologist Signature Estradiol 37 pg/mL 09/03/2020 MKTO Rapid, 3:43 PM CDT Immunoassay, S Comment: Biotin has been identified by the yudy haq as a potential interfering substance. ??Higher concentr ations of biotin may be found in multivitamins, hair/nail supple ments, and workout supplements. ??If the result does not [facility] clinical observations, repeat testing after patient refrains fr om the use of supplements for at least 12 hours. ----REFERENCE VALUE---- Premenopausal: 15-350 pg/mL Postmenopausal: <10 pg/mL Estradiol concentrations vary widely throughout the menstrual cycle. Specimen Anatomical Collection Method Collection Time Receive d Time (Source) Location / / Volume Laterality Blood (Blood, 09/03/2020 11:12 09/03/2020 2:47 Venous) AM CDT PM CDT Saul Martinez M.D. LAB BLOOD ADD-ON Performing Organization Address City/[facility] Phon e Number [facility]- [address] [place] [address] [place] [address] System in [place] [address] [place] [address] LH (Luteinizing Hormone) (09/03/2020 11:12 AM CDT) P athologist Signature Luteinizing 2.3 IU/L 09/04/2020 DTL Hormone (LH) 8:20 AM CDT Comment: ----REFERENCE VALUE---- Premenopausal: 1.9-14.6 IU/L (Follicular) 12.2-118.0 IU/L (Midcycle) 0.7-12.9 IU/L (Luteal) Postmenopausal: 5.3-65.4 IU/L Specimen Anatomical Collection Method Collection Time Receive d Time (Source) Location / / Volume Laterality Blood (Blood, 09/03/2020 11:12 09/04/2020 7:09 Venous) AM CDT AM CDT Saul Martinez M.D. LAB BLOOD ADD-ON Performing Organization Address City/State/[facility] Code Phon e Number [facility] - [address] [place], [place] [address] [facility] [place] [address] Laboratories-[facility] 200 [facility] Follicle-Stimulating Hormone (FSH), Serum (09/03/2020 11:12 AM CDT) P athologist Signature Follicle-Stim 6.2 IU/L 09/04/2020 DTL Hormone (FSH), 8:20 AM CDT S Comment: ----REFERENCE VALUE---- Premenopausal: 2.9-14.6 IU/L (Follicular) 4.7-23.2 IU/L (Midcycle) 1.4-8.9 IU/L (Luteal) Postmenopausal: 16.0-157.0 IU/L Specimen Anatomical Collection Method Collection Time Receive d Time (Source) Location / / Volume Laterality Blood (Blood, 09/03/2020 11:12 09/04/2020 7:09 Venous) AM CDT AM CDT Saul Martinez M.D. LAB BLOOD ADD-ON Performing Organization Address City/State/ZIP Code Phon e Number [facility] - [address] [place], [place] [address] [facility] [place] [address] Laboratories-[facility] [address] documented in this encounter Visit Diagnoses Diagnosis Infertility Female - Primary documented in this encounter
--- OUTSIDE RECORDS SUMMARY | 2022-03-16 09:12 | XMS_ITS | Encounter Summary ---
:1990 Author Organization [facility] Address [address] [place] [address] Care Team Providers Name Role Phone Elsewhere, Pcp Primary Care Provider Unavailable Reason for Referral Outpatient (Routine) - Closed Specialty Diagnoses / Procedures Referred By Contact Refer red To Contact Diagnoses Pain Left Lower Quadrant Pain Pelvic Female Burt Winchester APRN, C.N.P. [place] [place] Region Procedures US Abdomen Complete [address] [place] [address] Referral ID Status Reason Start Date Expiration Date Visits Requ ested Visits Authorized [id number] Closed 10/24/2020 10/24/2021 1 1 Reason for Visit Outpatient (Routine) - Closed Specialty Diagnoses / Procedures Referred By Contact Refer red To Contact Diagnoses Pain Left Lower Quadrant Pain Pelvic Female Burt Winchester APRN, C.N.P. [facility] [place] Region Procedures US Abdomen Complete [address] [place] [address] Referral ID Status Reason Start Date Expiration Date Visits Requ ested Visits Authorized [id number] Closed 10/24/2020 10/24/2021 1 1 Encounter Details Date Type Department Care Team Description 10/24/2020 Hospital Encounter Department of Burt Winchester, Pain Le ft Lower Quadrant; Radiology in [place], C.N.PNicolasa Pain Pelvic Fem [place], [place] [address] [place] [address] Social History Tobacco Use Types Packs/Day Years Used Date Smoking Tobacco: Every Day Cigarettes Smokeless Tobacco: Never Sex Assigned at Date Recorded Not on file documented as of this encounter Medications at Time of Discharge Medication Sig Dispensed Refills Start Date End Date busPIRone (BUSPAR) 10 mg 0 07/09/2020 tablet ibuprofen (ADVIL,MOTRIN) Take 600 mg by 0 600 mg tablet mouth every 6 (six) hours as needed for pain. omeprazole (PriLOSEC OTC) TAKE 1 TABLET BY 0 03/0 12/[address] tablet MOUTH EVERY DAY BEFORE A MEAL propranoloL (INDERAL) 20 Take 20 mg by mouth 0 mg tablet 2 (two) times a day. metroNIDAZOLE (FLAGYL) 500 Take 1 tablet (500 14 tablet 0 0 10/24/2020 10/31/2020 mg tabletIndications: mg total) by mouth Discharge Vaginal 2 (two) times a day for 7 days. documented as of this encounter Plan of Treatment Not on filedocumented as of this encounter Procedures Procedure Name Priority Date/Time Associated Comments Diagnosis US ABDOMEN RAD - Routine 10/24/2020 10:33 Pain Left Lower Results for this COMPLETE (most inpatients AM CDT Quadrant procedure are in and all Pain Pelvic the results outpatients) Female section. documented in this encounter Results US Abdomen Complete (10/24/2020 10:33 AM CDT) Anatomical Region Laterality Modality Abdomen, Ultrasound RST LOS, Ultrasound ARZ LOS, Ultrasound FLA N/A Ultrasound LOS Specimen (Source) Anatomical Collection Method Collection Time Re ceived Time Location / / Volume Laterality 10/24/2020 10:50 AM CDT Impressions 10/24/2020 10:58 AM CDT 1. ??No acute findings. 2. ??Hepatic steatosis. Narrative 10/24/2020 10:58 AM CDT EXAM: US ABDOMEN COMPLETE COMPARISON: None. FINDINGS: Liver: Diffuse increased echogenicity co nsistent with hepatic steatosis. Gallbladder: Normal. Intrahepatic ducts: Not dilated. Common duct: Not dilated. Pancreas: Normal where seen. Right kidney: ?? Length: 11.6 cm. Normal echogenicity. No hydronephrosis. Left kidney: ?? Length: 11.8 cm. Normal echogenicity. No hydronephrosis. Spleen: Normal. ??Spleen length: 10.2 cm Aorta: Normal caliber. IVC: Normal where seen. Ascites: ??None. Procedure Note Ernesto Salcido M.D. - 10/24/2020Formfany g of this note might be different from the original. EXAM: US ABDOMEN COMPLETE COMPARISON: None. FINDINGS: Liver: Diffuse increased echogenicity co nsistent with hepatic steatosis. Gallbladder: Normal. Intrahepatic ducts: Not dilated. Common duct: Not dilated. Pancreas: Normal where seen. Right kidney: Length: 11.6 cm. Normal echogenicity. No hydronephrosis. Left kidney: Length: 11.8 cm. Normal echogenicity. No hydronephrosis. Spleen: Normal. Spleen length: 10.2 cm Aorta: Normal caliber. IVC: Normal where seen. Ascites: None. IMPRESSION: 1. No acute findings. 2. Hepatic steatosis. Burt Winchester APRN, C.N.P. IMG US PROCEDURES documented in this encounter Visit Diagnoses Diagnosis Pain Left Lower Quadrant Pain Pelvic Female documented in this encounter Care Teams Laboratory Animal Care Veterinarian Relationship Specialty Start Date End Date Elsewhere, Pcp PCP - General Family Medicine 10/24/20 documented as of this encounter
--- OUTSIDE RECORDS SUMMARY | 2022-03-16 09:12 | XMS_ITS | Encounter Summary ---
:1990 Author Organization [facility] Address [address] [place] [address] Care Team Providers Name Role Phone Unavailable Primary Care Provider Unavailable Encounter Details Date Type Department Care Team Description 09/03/2020 Hospital Encounter Department of Saul Martinez Infe rtility Female Laboratory Medicine [facility] in [address] [facility] [address] [place], [place] [phone] [address] (Work) [phone] Social History Tobacco Use Types Packs/Day Years Used Date Smoking Tobacco: Every Day Smokeless Tobacco: Never Sex Assigned at Date Recorded Not on file documented as of this encounter Medications at Time of Discharge Medication Sig Dispensed Refills Start Date End Date busPIRone (BUSPAR) 10 mg 0 07/09/2020 tablet ibuprofen (ADVIL,MOTRIN) Take 600 mg by mouth 0 600 mg tablet every 6 (six) hours as needed for pain. omeprazole (PriLOSEC OTC) TAKE 1 TABLET BY 0 /0 12/[address] tablet MOUTH EVERY DAY BEFORE A MEAL propranoloL (INDERAL) 20 Take 20 mg by mouth 2 0 08/13/2020 mg tablet (two) times a day. documented as of this encounter Plan of Treatment Not on filedocumented as of this encounter Procedures Procedure Name Priority Date/Time Associated Diagnosis Comme nts ESTRADIOL, RAPID, S Routine 09/03/2020 11:12 Infertility Femal e Results for this AM CDT procedure are i n the results section. PROLACTIN, S Routine 09/03/2020 11:12 Infertility Female Resul ts for this AM CDT procedure are i n the results section. THYROID-STIMULATING Routine 09/03/2020 11:12 Infertility Femal e Results for this HORMONE-SENSITIVE AM CDT procedure are in (S-TSH) the results section. LUTEINIZING HORMONE Routine 09/03/2020 11:12 Infertility Femal e Results for this (LH), S AM CDT procedure are i n the results section. FOLLICLE-STIM Routine 09/03/2020 11:12 Infertility Female Resu lts for this HORMONE (FSH), S AM CDT procedure a re in the results section. documented in this encounter Results S-TSH (Thyroid-Stimulating Hormone - Sensitive) (09/03/2020 11:12 AM CDT) athologist Signature TSH, Sensitive 1.5 0.3 - 4.2 09/03/2020 [place] mIU/L 2:08 PM CDT Specimen Anatomical Collection Method Collection Time Receive d Time (Source) Location / / Volume Laterality Blood (Blood, 09/03/2020 11:12 09/03/2020 1:36 Venous) AM CDT PM CDT Saul Martinez M.D. LAB BLOOD ADD-ON Performing Organization Address City/[facility] Code Phon e Number [facility]- [address] [place] [address] [place] [address] System in [place] [address] [place] [address] Prolactin (09/03/2020 11:12 AM CDT) athologist Signature Prolactin Total 11.4 4.8 - 23.3 09/04/2020 DTL ng/mL 8:20 AM CDT Comment: ----ADDITIONAL INFORMATION---- The testing method is an electrochemilum inescence assay manufactured by [employer] and performed on the Irma system. [...] Organization Address City/State/ZIP Code Phon e Number [facility] - [address] [place], [place] [address] [facility] [place] [address] Laboratories-[facility] [address] [facility] Estradiol, Rapid, Immunoassay - (for rapid assessment of ovarian status) (09/03/2020 11:12 AM CDT) athologist Signature Estradiol 37 pg/mL 09/03/2020 MKTO Rapid, 3:43 PM CDT Immunoassay, S Comment: Biotin has been identified by the yudy haq as a potential interfering substance. ??Higher concentr ations of biotin may be found in multivitamins, hair/nail supple ments, and workout supplements. ??If the result does not [facility] clinical observations, repeat testing after patient [...] M.D. LAB BLOOD ADD-ON Performing Organization Address City/State/[facility] Code Phon e Number [facility]- [address] [place] [address] [place] [address] System in [address] LH (Luteinizing Hormone) (09/03/2020 11:12 AM CDT) athologist Signature Luteinizing 2.3 IU/L 09/04/2020 DT Hormone (LH) 8:20 AM CDT Comment: ----REFERENCE VALUE---- Premenopausal: 1.9-14.6 IU/L (Follicular) 12.2-118.0 IU/L (Midcycle) 0.7-12.9 IU/L (Luteal) Postmenopausal: 5.3-65.4 IU/L Specimen Anatomical Collection Method Collection Time Receive d Time (Source) Location / / Volume Laterality Blood (Blood, 09/03/2020 11:12 09/04/2020 7:09 Venous) AM CDT AM CDT Saul Martinez M.D. LAB BLOOD ADD-ON Performing Organization Address City/State/ZIP Code Phon e Number [facility] - [address] [place], [place] [address] [place] [address] Laboratories-[facility] 200 [facility] Follicle-Stimulating Hormone (FSH), Serum (09/03/2020 11:12 AM CDT) P athologist Signature Follicle-Stim 6.2 IU/L 09/04/2020 DT Hormone (FSH), 8:20 AM CDT S Comment: ----REFERENCE VALUE---- Premenopausal: 2.9-14.6 IU/L (Follicular) 4.7-23.2 IU/L (Midcycle) 1.4-8.9 IU/L (Luteal) Postmenopausal: 16.0-157.0 IU/L Specimen Anatomical Collection Method Collection Time Receive d Time (Source) Location / / Volume Laterality Blood (Blood, 09/03/2020 11:12 09/04/2020 7:09 Venous) AM CDT AM CDT Saul Martinez M.D. LAB BLOOD ADD-ON Performing Organization Address City/State/[facility] Code Phon e Number [facility] - [address] [place], [place] [address] [place] [address] Laboratories-[facility] 200 [facility] documented in this encounter Visit Diagnoses Diagnosis Infertility Female documented in this encounter
--- OUTSIDE RECORDS SUMMARY | 2022-03-16 09:12 | XMS_ITS | Encounter Summary ---
:1990 Author Organization [facility] Address [address] [place] [address] Care Team Providers Name Role Phone Unavailable Primary Care Provider Unavailable Reason for Visit Reason Comments Mental Health Problem Encounter Details Date Type Department Care Team Description 12/23/2018 Emergency [facility] [facility] Suicide Ideation (Primary [address] Dx) [place] [phone] Social History Tobacco Use Types Packs/Day Years Used Date Smoking Tobacco: Never Assessed Sex Assigned at Date Recorded Not on file documented as of this encounter Plan of Treatment Not on filedocumented as of this encounter Visit Diagnoses Diagnosis Suicide Ideation - Primary documented in this encounter
--- OUTSIDE RECORDS SUMMARY | 2022-03-16 09:12 | XMS_ITS | Encounter Summary ---
:1990 Author Organization [facility] Address [address] [place] [id number] Care Team Providers Name Role Phone Kilo Kovacs MD Primary Care Provider Dell Urbina [facility] - Unavailable [phone] Reason for Visit Reason Comments Abdominal Pain Encounter Details Date Type Department Care Team Description 02/20/2013 Emergency [facility] Le Miller MD Emergency Care [facility] [address] [facility] [address] [place], [place] [address] [place] [address] [phone] (Wo rk) Social History Tobacco Use Types Packs/Day Years Used Date Smoking Tobacco: Every Day Smokeless Tobacco: Never Alcohol Use Standard Drinks/Week Comments No 0 (1 standard drink = 0.6 oz pure alcoho l) Sex Assigned at Date Recorded Not on file documented as of this encounter Discharge Instructions AttachmentsThe following attachments cannot be sent through Care Everywhere. ABDOMINAL PAIN (MALAYSIAN)ABDOMINAL PAIN (SINHALA)documented in this encounter ED Notes Lobo Miller MD - 02/20/2013 6:18 PM CST CC: Kilo Kovacs MD Primary Care Provider: Kilo Kovacs MD CHIEF COMPLAINT: Lower abdominal pain. HISTORY OF PRESENT ILLNESS: The patient is a 22-year-old female presenting today with lower abdominal pain that is equal in both right and left lower abdomen. The patient reports that she has had some pain in her lower abdomen that was mild over the past three days. She states that while she was having intercourse with her , she developed a sharp, stabbing pain abruptly. She reports that she took an ibuprofen at home. This has not really helped her symptoms too much. She states that her symptoms are improved since their onset, but she still has some discomfort in her lower abdomen throughout. She denies any pain or burning with urination. No vaginal bleeding or discharge. No new sexual conta cts. She is not concerned about a STI. Some nausea over the past few days, but no vomiting. She has been having normal bowel movements without any diarrhea. The patient is Turkish speaking and the [employer] pick pulling machine tender was used for history taking. She does report that she has had a cyst in the past and this is similar to cyst pain that she has had. PAST MEDICAL HISTORY: Ovarian cyst, left ovarian mass status post removal, as well as intrauterine demise at 31 weeks' in November. ALLERGIES: Reviewed in Epic and updated. FAMILY HISTORY: Noncontributory. SOCIAL HISTORY: Negative x3. REVIEW OF SYSTEMS: A ten-point review of systems was performed with the patient and was negative other than what was stated in HPI. PHYSICAL EXAMINATION: VITAL SIGNS: Temperature is 98.6, pulse is 91, respiratory rate 16, blood pressure is 142/97, saturating 100% on room air. GENERAL: The patient is awake, alert, sitting up in no acute distress. HEENT: Atraumatic, normocephalic. Mucous membranes moist. NECK: Supple. CARDIOVASCULAR: Regular rate and rhythm without murmur. PULMONARY: Clear to auscultation without wheezes, rales or rhonchi. ABDOMEN: Soft. The patient has no pain in the upper abdomen. The patient does have pain diffusely across her lower abdomen that seems to be the same in the right as well as the left lower quadrants. Nosignificant rebound or guarding. EXTREMITIES: Atraumatic, full range of motion. No peripheral edema. SKIN: No rashes or lesions. NEUROLOGIC: Alert and oriented x3. EMERGENCY DEPARTMENT COURSE: The patient is a 22-year-old female presenting today with bilateral lower quadrant abdominal pain that abruptly worsened during intercourse and is now improving. At this time, it sounds most consistent with ovarian cyst. I did obtain a urinalysis that showed a negative beta hCG and urine that shows mild dehydration without any significant signs of infection. I did obtain a pelvic ultrasound to further evaluate. This shows a normal uterus, no retained products of conception. The right ovary is normal. The left ovary is not specifically identified but there are no adnexalmasses seen, decreasing my concern for torsion. There is no free fluid. The patient was reexamined. She is much improved after Percocet. Her pain is better. On exam, she has some discomfort with palpation of the lower abdomen, but again no rebound or guarding. I did discuss the patient's findings withher. At this time, I have a low suspicion for torsion. I do not think that a CT scan would be particularly helpful in evaluating the patient's pain based on her exam. I think that this is a pain that is likely to get better. I did offer the patient CT scanning after discussion of the risks and benefits and she decided to hold off at this time. The patient did have some concerns about [place] remove a mass on the left side of her ovary. She reports that they told her that they were able to save the ovary, but not a . She states that she has had two ultrasounds now that have not shown that left ovary and is concerned that it may be absent. Again, I did offer her a CT scan to further evaluate, but she declines at this time. I did discuss this extensively with her. it sounds like the records would need to be obtained and that she would need some followup, that can be probably best coordinated by her primary [employer] physician. She does have an [employer] physician that she sees, and will be able to follow up with them closely. I do not think that she needs further evaluation at this time. She was discharged in stable condition with symptoms improved. IMPRESSION: Bilateral lower abdominal pain, likely ruptured cyst. Lobo Miller MD /ALICIA Dictation ID: [id number] NIC SPECIALIST Rodrigo Moncada RN - 02/20/2013 4:12 PM CST Kayleigh Stahl S: Discharge B: Discharged ambulatory to home at 1615 escorted by spouse A: Discharge information and arrangements included: review of written discharge instructions, prescriptions sent with patient Patient assisted with using instymed machine. R:Patient expressed understanding of information. All questions answered with use of MARTII NIC SPECIALIST Rodrigo Moncada RN - 02/20/2013 2:02 PM CST Urine sample obtained and sent to lab. NIC SPECIALIST Rodrigo Moncada RN - 02/20/2013 1:57 PM CST S: abdominal pain B: patient is turkmen speaking, MARTII used for assessment. Patient reports history of left sided ovarian cyst, with surgery to remove in May. States that for the past few days she has had right sided abdominal pain that seems similar to the cyst pain. Today while having intercourse with her developed sharp stabbing pain. Took Ibuprofen with minimal relief. Denies urinary/vaginal symptoms, unknown status. Recently completed menstrual cycle. When asked about patient chronic abdominal pain patient states that this is different A: rating pain 7-8/10 Abdomen soft and slightly tender to palpation in right lower quadrant. R: Awaiting MD evaluation NIC SPECIALIST documented in this encounter Plan of Treatment Not on filedocumented as of this encounter Procedures Procedure Name Priority Date/Time Associated Comments Diagnosis US PELVIS WITH STAT 02/20/2013 2:53 PM Results for this IVT-NON OB CHRONIC SPECIALIST procedure are i n the results section. URINALYSIS STAT 02/20/2013 2:03 PM Results f or this MACROSCOPIC W/ CHRONIC SPECIALIST procedure are in MICROSCOPY, IF the results INDICATED (DOES NOT section. INC CULTURE) HCG URINE STAT 02/20/2013 1:55 PM Results f or this CHRONIC SPECIALIST procedure are i n the results section. documented in this encounter Results US PELVIS WITH IVT NON OB (02/20/2013 2:53 PM CHRONIC SPECIALIST) Anatomical Region Laterality Modality ABD/Pelvis Ultrasound Specimen (Source) Anatomical Collection Method Collection Time Re ceived Time Location / / Volume Laterality 02/20/2013 2:56 PM CHRONIC SPECIALIST Impressions 02/20/2013 2:59 PM CHRONIC SPECIALIST IMPRESSION: ??Left ovary not specifically identified otherwise unremarkable Narrative 02/20/2013 2:59 PM CHRONIC SPECIALIST EXAMINATION: ??Ultrasound of the Pelvis. ?? 02/20/2013 2:40 PM CLINICAL DATA: ??Pelvic pain COMPARISON: ??None. TECHNIQUE: ??Transabdominal and transvag inal sonography. FINDINGS: ??The uterus is normal in appe arance. ??The endometrium measures 0.2 ??cm in thickness. ??No right ovarian lesion is seen. ??No rmal flow is identified to the ovary. ??. Left ovary is not specifically identified however no adnexal masses are seen. ??No free fluid is seen in the cul-de-sac. Procedure Note Wood Stephenson MD - 02/20/2013Form atting of this note might be different from the original. EXAMINATION: Ultrasound of the Pelvis. 1 04/22/2012 2:40 PM CLINICAL DATA: Pelvic pain COMPARISON: None. TECHNIQUE: Transabdominal and transvagin al sonography. FINDINGS: The uterus is normal in appear ance. The endometrium measures 0.2 cm in thickness. No right ovarian lesion is seen. Normal flow is identified to the ovary. . Left ovary is not specifically identified however no adnexal masses are seen. No free fluid is seen in the cul-de-sac. IMPRESSION: Left ovary not specifically identified otherwise unremarkable Lobo Miller MD ULTRASOUND ORDERABLE (ABNORMAL) Urinalysis w/ Microscopy, if indicated (02/20/2013 2:03 PM CHRONIC SPECIALIST) [facility] Method Time Signature PH URINE 6.0 4.5 - 8.0 [facility]20[facility] CHRON[facility] SPECIAL[facility] LABORATORY SP.GRAVITY, >=1.030 (H) 1.015 - 02/20/2013 [facility] 1.025 2:04 PM CHRONIC SPECIALIST LABORATORY GLUCOSE, UA Negative Negative 02/20/2013 [facility] mg/dL 2:04 PM [facility]RON[facility] LABORATORY KETONE, UA 15 (A) Negative 02/20/2013 [facility] mg/dL 2:04 PM [facility] LABOR[facility]ORY BILIRUBIN, UA Negative Negative 02/20/2013 [facility] 2:04 PM [facility] LABOR[facility]ORY UROBILINOGEN, 0.2 0.2 - 1.0 02/20/2013 [facility] EU/dL 2:04 PM [facility] LAB[facility] PROTEIN, UA Negative Negative 02/20/2013 [facility] mg/dL 2:04 PM [facility] LABORATORY OCCULT BLOOD, Negative Negative, 02/20/2013 [facility] Trace, 2:04 PM [facility] LABORATORY TRACE-LYSED, TRACE-INTACT WBC ESTERASE, Negative Negative, 02/20/2013 [facility] Trace 2:04 PM [facility] LAB[facility] NITRITE, UA Negative Negative 02/20/2013 [facility] 2:04 PM [facility]RON[facility] SPECIAL[facility] LABORATORY Specimen Anatomical Collection Method Collection Time Receive d Time (Source) Location / / Volume Laterality Urine specimen Collection / 02/20/2013 2:03 PM 013 2:00 (specimen) Unknown CHRONIC SPECIALIST PM CHRONIC SPECIALIST Lobo Miller MD URINE ORDERABLE Performing Organization Address City/[facility]/ZIP Code Phon e Number [facility] [address] [place] [address] [facility] HCG Urine (02/20/2013 1:55 PM CHRONIC SPECIALIST) P athologist Signature HCG URINE Negative 02/20/2013 [facility] 2:05 PM [facility]RON[facility] SPECIALIST LABORATORY Specimen Anatomical Collection Method Collection Time Receive d Time (Source) Location / / Volume Laterality Urine specimen 02/20/2013 1:55 PM 013 2:00 (specimen) CHRONIC SPECIALIST PM CHRONIC SPECIALIST Lobo Miller MD URINE ORDERABLE Performing Organization Address City/[facility]/ZIP Code [facility] e Number [facility] [address] [place] [address] [facility] documented in this encounter Visit Diagnoses Diagnosis Bilateral lower abdominal pain - Primary Abdominal pain, right lower quadrant documented in this encounter Administered Medications Inactive Administered Medications - up to 3 most recent administrations Medication Order MAR Action Action Date Dose Rate Site oxyCODONE (immediate release) Given 02/20/2013 2:25 PM CHRONIC SPECIALIST 10 mg (ROXICODONE) tablet 5-10 mg 5-10 mg, oral, ONCE, 1 dose, On 02/20/13 at 1430 documented in this encounter Active and Recently Administered Medications Times are shown in CHRONIC SPECIALIST. Scheduled Medication Order 02/18/2013 02/19/2013 02/20/2013 oxyCODONE (immediate release) (ROXICODONE) tablet 5-10 mg (COMPL ETED) 1425 (Given - Provider: Rodrigo Moncada RN) 5-10 mg, Oral, ONE TIME DOSE, 1 dose, 02/20/13 at 1430 documented in this encounter Care Teams Tri[employer] Finisher Relationship Specialty Start Date End Date Kilo Kovacs MD PCP - General Obstetrics/Gynecolog 11/15/12 02/18/22 y Dell Urbina PCP - Primary Care 11/15/1202/03 [facility] - [address] [facility] [place] [id number] documented as of this encounter
--- OUTSIDE RECORDS SUMMARY | 2022-03-16 09:12 | XMS_ITS | Encounter Summary ---
:1990 Author Organization [facility] Address [address] [place] [address] Care Team Providers Name Role Phone [facility] Unavailable [phone] Doctor, No Primary Care Provider Unavailable Reason for Visit Reason Comments Fall Penetrating Trauma Inpatient Admission (Routine) Specialty Diagnoses / Procedures Referred By Contact Refer red To Contact Diagnoses Fall due to slipping on ice or snow, initial encounter Referral ID Status Reason Start Date Expiration Date Visits Requ ested Visits Authorized [id number] 1 1 Encounter Details Date Type Department Care Team Description 02/19/2022 Emergency [facility] Reshma Cook MD [address] [place], [place] [address] Fall due to slipping Hospital Emergency Zhou Bledsoe MD [address] [address] on ice or snow, Department initial encounter [address] [address] Social History Tobacco Use Types Packs/Day Years Used Date Smoking Tobacco: Every Day Smokeless Tobacco: Never Alcohol Use Standard Drinks/Week Comments No 0 (1 standard drink = 0.6 oz pure alcoho l) Sex Assigned at Date Recorded Not on file COVID-19 Exposure Response Date Recorded In the last 10 days, have you been in contact with No / Unsu re 02/19/2022 3:48 PM LANGUAGES AND LITERATURE INSTRUCTOR someone who was confirmed or suspected to have Coronavirus/COVID-19? documented as of this encounter Last Filed Vital Signs Vital Sign Reading Time Taken Comments Blood Pressure 131/90 02/19/2022 6:00 PM LANGUAGES AND LITERATURE INSTRUCTOR Pulse 79 02/19/2022 6:00 PM LANGUAGES AND LITERATURE INSTRUCTOR Temperature 36.5 ??C (97.7 ??F) 02/19/2022 4:09 PM LANGUAGES AND LITERATURE INSTRUCTOR Respiratory Rate 21 02/19/2022 6:00 PM LANGUAGES AND LITERATURE INSTRUCTOR Oxygen Saturation 99% 02/19/2022 6:00 PM LANGUAGES AND LITERATURE INSTRUCTOR Inhaled Oxygen Concentration - - Weight - - Height - - Body Mass Index - - documented in this encounter Discharge Instructions AttachmentsThe following attachments cannot be sent through Care Everywhere. Laceration (Discharge Care) ([place] Islander)documented in this encounter Medications at Time of Discharge Medication Sig Dispensed Refills Start Date End Date amitriptyline (ELAVIL) 10 Take 1 tablet (10 mg) 0 02/10/2022 mg oral tablet by mouth at bedtime. dicyclomine (BENTYL) 20 mg Take 1 tablet (20 mg) 0 02/10/2022 oral tablet by mouth three times a day. famotidine (PEPCID) 40 mg Take 1 tablet (40 mg) 0 08/02/2021 oral tablet by mouth once daily. gabapentin (NEURONTIN) 300 Take 1 capsule (300 0 02/04/2022 mg oral capsule mg) by mouth Twice a Day. Take 1 capsule daily in the morning, 1 capsule daily in the afternoon, and 3 capsules nightly before bed. gabapentin (NEURONTIN) 300 Take 3 capsules (900 0 mg oral capsule mg) by mouth at bedtime. lubiprostone (AMITIZA) 24 Take 1 capsule (24 0 mcg oral Cap mcg) by mouth twice a day before breakfast and dinner. metFORMIN (GLUCOPHAGE) 500 Take 1 tablet (500 0 1 05/03/2020 mg oral tablet mg) by mouth twice a day with breakfast and dinner. omeprazole (PRILOSEC) 40 Take 1 capsule (40 0 mg oral delayed release mg) by mouth every capsule morning before breakfast. propranoloL (INDERAL) 20 Take 1 tablet (20 mg) 0 03/03/2021 mg oral tablet by mouth twice a day. QUEtiapine (SEROQUEL) 300 Take 1 tablet (300 0 mg oral tablet mg) by mouth at bedtime. sertraline (ZOLOFT) 100 mg Take 1.5 tablets (150 0 02/04/2022 oral tablet mg) by mouth once daily. sucralfate (CARAFATE) 1 Take 1 tablet (1 g) 0 01/2022 gram oral tablet by mouth three times a day before meals and at bedtime. documented as of this encounter Consult Notes Alonzo Frias PA-C - 02/19/2022 5:58 PM CST TRAUMA CONSULTATION NOTE PATIENT NAME: Kayleigh Stahl ADDRESS: [id number] of [facility] [id number] AGE: 31 y.o. SEX: female Admission Date/Time: 02/19/2022 3:48 PM Hospital Attending Physician: Reshma Cook MD I was asked to see this patient at the request of Dr. Cook for evaluation of a puncture wound tothe patient's right thigh. Patient seen on 02/19/2022 at 16:55. Trauma Activation: Trauma Evaluation: Time Consulted 16:50 Arrival/Pre-Notification: Referring Hospital CHIEF COMPLAINT: Puncture wound to right thigh HPI: The patient is a pleasant 31-year-old female predominantly [place] Islander speaking that was transferred to our facility from [facility] due to a penetrating injury to her right thigh. Patient states she was cleaning her home around 9:00 this morning when she accidentally slipped and fell on a piece of broken metal. Patient states she did not hit her head or lose consciousness. At the outside facility the patient underwent a CTA of her right lower extremity which was concerning for possible SFA versus SFA branch injury. At this time the patient was transferred to our facility for evaluation and management. Here she arrived hemodynamically stable with no active bleeding from her wound. She did complain of some numbness and tingling to her right foot. Patient is not voicing any concerns at this time. REVIEW OF SYSTEMS A comprehensive review of systems was negative except for items noted in the HPI/Subjective. Last Oral Intake: Unknown Last Tetanus: 02/19/2022 PAST MEDICAL HISTORY Past Medical History: Diagnosis Date Headache around the eyes history of elevated blood pressure patient reports that when she was in [place] she was given medications, but she stopped them due side effects Hypertension in 12/03/2012 PAST SURGICAL HISTORY Past Surgical History: Procedure Laterality Date HX OVARIAN CYST REMOVAL 05/2012 MEDICATIONS (Not in a hospital admission) ALLERGIES Patient has no known allergies. FAMILY HISTORY Family History Problem Relation Name Age of Onset Cancer Mother community relations specialist cancer of unknown origin to patient Arthritis Maternal Grandmother Diabetes Maternal Grandmother SOCIAL HISTORY Social History Socioeconomic History Marital status: Single Spouse name: Not on file Number of children: 0 Years of education: Not on file Highest education level: Not on file Occupational History Not on file Tobacco Use Smoking status: Every Day Smokeless tobacco: Never Substance and Sexual Activity Alcohol use: No Drug use: No Sexual activity: Yes Partners: Male Other Topics Concern Not on file Social History Narrative Not on file Social Determinants of Health Financial Resource Strain: Not on file Food Insecurity: Not on file Transportation Needs: Not on file Physical Activity: Not on file Stress: Not on file Social Connections: Not on file Intimate Partner Violence: Not on file Housing Stability: Not on file PHYSICAL EXAM BP 121/79 Pulse 69 Temp 97.7 ??F (36.5 ??C) Resp 13 SpO2 98% CONSTITUTIONAL/PSYCHOLOGICAL: Calm, cooperative. Non-toxic in appearance. NEUROLOGIC: Alert and oriented. Speech clear. Non-focal exam. HEENT: Head: normocephalic, atraumatic. Eyes: normal lids and conjunctivae. PERRL. Oropharynx: Moistmucous membranes. NECK: No tracheal deviation. Normal range of motion. No midline tenderness to palpation. CHEST: Symmetrical chest rise and fall. No accessory muscle use. PULMONARY: Nonlabored and clear to auscultation CARDIOVASCULAR: Heart: heart rate normal. Regular in rhythm. No M/R/G. Peripheral Vascular: Peripheral pulses palpable. No peripheral edema appreciated. GASTROINTESTINAL: Abdominal: Soft, nondistended, nontender to palpation. MUSCULOSKELETAL: Moves all extremities. 3.0 cm puncture wound to the right mid anterior thigh. No active bleeding noted. No pulsatile mass nor expanding hematoma noted. Patient was neurovascularly intact distally. Palpable pedal pulses bilaterally. No midline back pain to palpation. Patient moves all 4 extremities freely dependently. Laboratory Data No results found for this or any previous visit (from the past 24 hour(s)). Additional Comments: I reviewed the patient's new clinical lab test results.I reviewed the patient'snew imaging test results.I discussed the patient's care with Dr. Bledsoe. ASSESSMENT/DIFFERENTIAL DIAGNOSIS Principal Problem: Fall due to slipping on ice or snow, initial encounter Active Problems: Fall from slipping on ice Puncture wound of right thigh PLAN Outside images were reviewed by vascular surgery as well as radiology. There does not appear to be any injury to the right SFA. There is no active bleeding from the patient's wound. There is no pulsatile or expanding hematoma noted. The patient is neurovascularly intact to her right lower extremity. The wound washed out and primarily closed by ED. From a trauma standpoint, the patient is stable for discharge. A credit union teller was utilized for history and physical exam. CONSULTATION ASSESSMENT AND PLAN/RECOMMENDATIONS: Principal Problem: Fall due to slipping on ice or snow, initial encounter Active Problems: Fall from slipping on ice Puncture wound of right thigh I thank Dr. Cook for the opportunity to participate in the patient's care. 50 minutes total time spent with customer, more than 50% of time spent counseling and/or coordination of care. Alonzo Frias PA-C UAGES AND LITERATURE INSTRUCTOR Associated attestation - Zhou Bledsoe MD - 02/19/2022 6:40 PM LANGUAGES AND LITERATURE INSTRUCTOR I have seen and examined the patient on this date. I agree with the findings and plan documented in Alonzo Frias's note. Reviewed imaging with vascular and IR; no SFA injury, no extravasation. Intramuscular contrast is large muscular branch. No indication for admission for further workup. ED to help with wound washout and closure then should be able to discharge from ED. Zhou Bledsoe MD, PhD Trauma Surgery documented in this encounter ED Notes Reshma Cook MD - 02/19/2022 4:03 PM CST CHIEF COMPLAINT: Puncture wound HPI: Initial history obtained at 4:03 PM 02/19/22. History obtained with the assistance of wiliam VILLALOBOS. Kayleigh Stahl is a 31 y.o. female with a history of prediabetes who presents to the emergency department via EMS for evaluation of a puncture wound. The patient was cleaning her bathroom today whenshe fell and sustained a puncture wound to her right thigh. The puncture wound was caused by a metalhandle that she was holding onto which broke. She also complains of mild chest pain which she statesis common with her anxiety and some numbness in her right foot. She states that she didn't sustain any other injuries during the fall and denies abdominal pain and loss of sensation in extremities. The patient went to [facility] for evaluation of the injury where the found her to have a femoral vasculature injury which is why they transferred her here to the ED. She hasn't had anything to eat today but drank a soda while she was ar the [facility] around 2 hours ago (2 PM). EMS gave her 1.5 mg of dilaudid, last dose was at 3:34 PM. She is a smoker but has no history of blood clots. CT Angio Lower Extremity Right, [facility], 02/19/22 Impression: Puncture wound to anterior aspect of distal right thigh with some extravasation in the right adductor musculature. It is difficult to tell whether the bleed arises from the SFA itself or due to injury at the very proximal aspect of an SFA branch. Distal to this SFA is widely patent with without dissection. No pseudoaneurysm. Otherwise normal vasculature with no atherosclerosis or stenoses. MEDICATIONS: Amitriptyline (Elavil) 10 Mg Oral Tablet Dicyclomine (Bentyl) 20 Mg Oral Tablet Famotidine (Pepcid) 40 Mg Oral Tablet Gabapentin (Neurontin) 300 Mg Oral Capsule Gabapentin (Neurontin) 300 Mg Oral Capsule Lubiprostone (Amitiza) 24 Mcg Oral Cap Metformin (Glucophage) 500 Mg Oral Tablet Omeprazole (Prilosec) 40 Mg Oral Delayed Release Capsule Propranolol (Inderal) 20 Mg Oral Tablet Quetiapine (Seroquel) 300 Mg Oral Tablet Sertraline (Zoloft) 100 Mg Oral Tablet Sucralfate (Carafate) 1 Gram Oral Tablet ALLERGIES: The patient has no known allergies to medications. PAST MEDICAL HISTORY: Elevated blood pressure Hypertension in IUFD (intrauterine ) Migraine headache PAST SURGICAL HISTORY: OVARIAN CYST REMOVAL FAMILY HISTORY: Family History Problem Relation Age of Onset Cancer Mother community relations specialist cancer of unknown origin to patient Arthritis Maternal Grandmother Diabetes Maternal Grandmother SOCIAL HISTORY: The patient presents with a family member. She is japanese speaking and smokes cigarettes. REVIEW OF SYSTEMS: Review of Systems Cardiovascular: Positive for chest pain (per anxiety). Gastrointestinal: Negative for abdominal pain. Skin: Positive for wound. Neurological: Positive for numbness (mild in right foot). All other systems reviewed and are negative. PHYSICAL EXAM: Physical Exam Temperature: 97.7 ??F (36.5 ??C) Pulse: 84 Respirations: 18 BP: 100/72 SpO2: 96 % Constitutional: Alert, NAD HEENT: Head and face atraumatic. Conjunctivae clear. PERRL, EOMs normal. Gross vision intact. External ears normal. Nares normal. MMM. Cardio: RRR. No m/r/g. Peripheral pulses intact. 2+ dorsalis pedis pulse. Resp: CTAB. No w/r/r GI: Soft. Non-tender. Non-distended. No rebound or guarding, no masses Msk: Extremities without deformities, FROM in all extremities. Skin: 3cm penetrating wound to R mid-thigh, no large hematoma or tense swelling, hemostatic Neuro: Awake, alert, sensation intact to entire RLE, movement in all 4 extremities ED COURSE: Procedures: Laceration Repair Procedure: Laceration Repair Indication: Laceration Consent: Verbal Location: Right Lower extremity Length: 3 cm Preparation: Irrigation with Sterile Saline. Anesthesia/Sedation: Lidocaine with Epinephrine - 1% Treatment/Exploration: Wound explored, no foreign bodies found Closure: The wound was closed with one layer. Skin/superficial layer was closed with 6 x 3-0 Polypropylene (prolene) using Interrupted sutures. And 1 3-0 prolene horizontal mattress. The patient tolerated the procedure well: yes. There were no complications. Laboratory: Labs Reviewed SARS-COV-2 DETECTION BY ALISE PCR Interventions: Medications diphtheria-acell pertussis-tetanus toxoids (greater than or equal to 10 years of age) (Boostrix) injection 0.5 mL (has no administration in time range) lidocaine 1%- EPINEPHrine 1:100,000 (XYLOCAINE-EPINEPHRINE) injection 10 mL (has no administration in time range) Notable Events: Reviewed: 3:53 PM: I reviewed the patient's vital signs, past medical history, previous medical charts, and nursing notes. Assessments: 4:03 PM: I performed initial history and physical exam of the patient. : I re-evaluated the patient. ED Vitals: Patient Vitals for the past 24 hrs: BP Temp Pulse Resp SpO2 02/19/22 1800 (!) 131/90 -- 79 21 99 % 02/19/22 1700 121/79 -- 69 13 98 % 02/19/22 1609 125/76 97.7 ??F (36.5 ??C) 76 11 96 % 02/19/22 1600 100/72 -- 84 18 96 % MDM: Kayleigh Stahl is a 31 y.o. female who presents today for penetrating trauma to R thigh. She appears neurovascularly intact despite reported CT with extravasation. There is no expanding hematoma or ongoing bleeding. I discussed the case with trauma who agree that there is no indication for further vascular management or surgery reportedly did review the case with IR and vascular who agreed. I closed the wound at the bedside as above. Discussed wound care and follow up in 14 days for suture removal. Reviewed findings, most likely diagnosis and return precautions to patient, discharged in good condition after all questions answered. DIAGNOSIS: ICD-10-CM 1. Laceration of right thigh, initial encounter S71.111A DISPOSITION: Discharged Discharge Medication List as of 02/19/2022 6:48 PM ATTESTATION: Scribe Attestation: I, Shavonne Ca, am serving as a scribe to document services personally performed by Reshma Cook MD, based on my observations and the provider's statements to me. Provider Attestation: Portions of this medical record were completed by a scribe. UPON MY REVIEW AND AUTHENTICATION BY ELECTRONIC SIGNATURE, this confirms (a) I performed the applicable clinical services, and (b) the recordis accurate. Reshma Cook MD 02/19/22 02/19/2022 [facility] UAGES AND LITERATURE INSTRUCTOR Edgardo Flores RN - 02/19/2022 3:49 PM CST Presents via [facility] for a Chief Complaint of Trauma to Right thigh. [place] Islander speaking only. MARTTI in room. Patient was at home today when she fell while cleaning the bathroom. Patient was holding onto a metal handle the broke from the wall and caused a puncture wound to her right thigh. Patient transferred to [facility] due to injury to femoral vasculature. No tourniquet in place at this time. CT done at [facility]. Patient is AxOx3 at this time and VSS. Treatments/medications: 1.5 mg dilaudid given COAL OR ORE CONTROLLER. Last dose at 1534. 20g LAC. Living condition: From home. UAGES AND LITERATURE INSTRUCTOR documented in this encounter Miscellaneous Notes Med Reconciliation - Oscar Connell, Pharm D - 02/19/2022 5:17 PM LANGUAGES AND LITERATURE INSTRUCTOR PHARMACY MEDICATION RECONCILIATION NOTE MEDICATION RECONCILIATION on admission by pharmacy has been completed. Prior to admission medications were reviewed with pharmacy dispense history and [facility]-everywhere/clinic notes. The COAL OR ORE CONTROLLER medication list has been updated and reflected in the chart below. Please use the COAL OR ORE CONTROLLER medication section for ordering home doses during admission. PRIOR TO ADMISSION MEDICATION LIST: Prior to Admission Medications Prescriptions Last Dose Informant Taking? QUEtiapine (SEROQUEL) 300 mg oral tablet 02/18/2022 Yes Sig: Take 1 tablet (300 mg) by mouth at bedtime. amitriptyline (ELAVIL) 10 mg oral tablet 02/18/2022 Yes Sig: Take 1 tablet (10 mg) by mouth at bedtime. dicyclomine (BENTYL) 20 mg oral tablet 02/19/2022 Yes Sig: Take 1 tablet (20 mg) by mouth three times a day. famotidine (PEPCID) 40 mg oral tablet 02/19/2022 Yes Sig: Take 1 tablet (40 mg) by mouth once daily. gabapentin (NEURONTIN) 300 mg oral capsule 02/19/2022 Yes Sig: Take 1 capsule (300 mg) by mouth Twice a Day. Take 1 capsule daily in the morning, 1 capsule daily in the afternoon, and 3 capsules nightly before bed. gabapentin (NEURONTIN) 300 mg oral capsule 02/18/2022 Yes Sig: Take 3 capsules (900 mg) by mouth at bedtime. lubiprostone (AMITIZA) 24 mcg oral Cap 02/19/2022 Yes Sig: Take 1 capsule (24 mcg) by mouth twice a day before breakfast and dinner. metFORMIN (GLUCOPHAGE) 500 mg oral tablet 02/19/2022 Yes Sig: Take 1 tablet (500 mg) by mouth twice a day with breakfast and dinner. omeprazole (PRILOSEC) 40 mg oral delayed release capsule 02/19/2022 Yes Sig: Take 1 capsule (40 mg) by mouth every morning before breakfast. propranoloL (INDERAL) 20 mg oral tablet 02/19/2022 Yes Sig: Take 1 tablet (20 mg) by mouth twice a day. sertraline (ZOLOFT) 100 mg oral tablet 02/19/2022 Yes Sig: Take 1.5 tablets (150 mg) by mouth once daily. sucralfate (CARAFATE) 1 gram oral tablet 02/19/2022 Yes Sig: Take 1 tablet (1 g) by mouth three times a day before meals and at bedtime. Facility-Administered Medications: None This patient obtains medications from [id number] - [place], [place] - [address] [facility] [address] [address] [facility]. Thank you for the opportunity to participate in the care of this patient. Jon CallejasD, [facility] Phone #:[phone] or [phone] Time spent reconciling meds: 15 min Location: NON-face to face encounter (telephone or other means of communication) UAGES AND LITERATURE INSTRUCTOR documented in this encounter Plan of Treatment Not on filedocumented as of this encounter Procedures Procedure Name Priority Date/Time Associated Diagnosis Comme nts SARS-COV-2 STAT 02/19/2022 5:04 PM Results f or this DETECTION BY ALISE LANGUAGES AND LITERATURE INSTRUCTOR procedure are in PCR the results section. documented in this encounter Results COVID-19 (Screening) (02/19/2022 5:04 PM LANGUAGES AND LITERATURE INSTRUCTOR) Analysis Performed At Patho logist Time Signature SARS-CoV-2 SARS-CoV-2 SARS-CoV-2 REBECCA ALISE 02/20/2022 [place] RNA by PCR RNA Not RNA Not 6800 2:[address] [facility] Detected Detected [facility] Specimen (Source) Anatomical Location / Collection Collection Jeffrey e Received Time Laterality Method / Volume Nasopharynx NASOPHARYNGEAL 02/19/2022 5:04 02/19/2022 STRUCTURE / Unknown PM LANGUAGES AND LITERATURE INSTRUCTOR 5:16 PM LANGUAGES AND LITERATURE INSTRUCTOR Alonzo Frias PA-C MICROBIOLOGY ORDERABLE Performing Organization Address City/State/ZIP Code Phon e Number [facility] [address] [place] [address] LABORATORY documented in this encounter Visit Diagnoses Diagnosis Fall due to slipping on ice or snow, ini tial encounter - Primary Laceration of right thigh, initial encou nter Puncture wound of right thigh Open wound of hip and thigh, without men tion of complication documented in this encounter Admitting Diagnoses Diagnosis Fall due to slipping on ice or snow, ini tial encounter documented in this encounter Active and Recently Administered Medications Times are shown in LANGUAGES AND LITERATURE INSTRUCTOR. Scheduled Medication Order 02/17/2022 02/18/2022 02/19/2022 diphtheria-acell pertussis-tetanus toxoi ds (greater than or equal to 10 years of age) (Boostrix) injection 0.5 mL 1700 (D ue) 0.5 mL, IntraMUSCULAR, ONCE, 1 dose, On Maisha 02/19/22 at 1700 lidocaine 1%- EPINEPHrine 1:100,000 (XYLOCAINE-EPINEPHRINE) inje ction 10 mL 1800 (Due) 10 mL, Injection, ONCE, 1 dose, On Maisha 02/19/22 at 1800 documented in this encounter Care Teams Auctioneer Automobile Relationship Specialty [facility] [place] [address] [place] [address] Doctor, No PCP - General Radiology 02/19/22 No ad documented as of this encounter
--- OUTSIDE RECORDS SUMMARY | 2022-03-16 09:12 | XMS_ITS | Encounter Summary ---
:1990 Author Organization [facility] Address [address] [place] [address] Care Team Providers Name Role Phone Elsewhere, Pcp Primary Care Provider Unavailable Encounter Details Date Type Department Care Team Description 10/24/2020 Hospital Encounter Department of Burt Winchester S, Pain Le ft Lower Quadrant; Laboratory Medicine DEGREASING SOLUTION RECLAIMER, C.N.P. Pain Pel bowen Female; in [place], Discharge Vagi nal [address] [facility] [place] [id number] Social History Tobacco Use Types Packs/Day Years [...] Procedure Name Priority Date/Time Associated Comments Diagnosis URINALYSIS WITH Routine 10/24/2020 9:17 AM Pain Left Lower Res ults for this MICROSCOPIC CDT Quadrant procedure are in Pain Pelvic Fema le the results Discharge Vaginal section. documented in this encounter Results Urinalysis with Microscopic: Urine, Midstream (10/24/2020 9:17 AM CDT) P athologist Signature Source Midstream 10/24/2020 FB60 9:41 AM CDT Clarity Clear Clear 10/24/2020 FB60 9:41 AM CDT Color Yellow 10/24/2020 FB60 9:41 AM CDT Comment: ----REFERENCE VALUE---- Colorless Yellow Shawna Blood Negative Negative 10/24/2020 9:41 AM CDT FB60 Nitrite Negative Negative 10/24/2020 9:41 AM CDT FB60 Leukocyte Esterase Negative Negative 10/24/2020 9:41 AM CD T FB60 Protein Negative mg/dL 10/24/2020 9:41 AM CDT FB60 Comment: ----REFERENCE VALUE---- Negative Trace Glucose Negative Negative mg/dL 10/24/2020 9:41 AM CDT FB 60 Ketones, QI(U) Negative Negative mg/dL 10/24/2020 9:41 AM C DT FB60 Bilirubin Negative Negative 10/24/2020 9:41 AM CDT FB60 pH 5.0 5.0 - 8.0 10/24/2020 9:41 AM CDT FB60 Specific [place] >=1.030 1.001 - 1.035 10/24/2020 9:41 AM CDT FB60 Urobilinogen 0.2 0.2 - 1.0 mg/dL 10/24/2020 9:41 AM CD T FB60 White Blood Cells Occ-3 /hpf 10/24/2020 9:41 AM CDT FB60 Comment: ----REFERENCE VALUE---- Males: 0-3 Females: 0-10 Unknown: 0-10 Red Blood Cells Occ-2 0 - 2 /hpf 10/24/2020 9:41 AM CDT FB60 Mucus Present /hpf 10/24/2020 9:41 AM CDT FB60 Squamous Cells Occ-3 /hpf 10/24/2020 9:41 AM CDT FB 60 Specimen Anatomical Collection Method Collection Time Receive d Time (Source) Location / / Volume Laterality Urine (Urine, 10/24/2020 9:17 AM 10/25/19 9:23 Midstream) CDT AM CDT Burt Winchester APRN, C.N.P. LAB URINE ORDERABLES Performing Organization Address City/State/ZIP Code Phon e Number [facility] [address] [place] [address] [facility] [place] [address] System in [address] documented in this encounter Visit Diagnoses Diagnosis Pain Left Lower Quadrant Pain Pelvic Female Discharge Vaginal documented in this encounter Care Teams Braided Rug Maker Relationship Specialty Start Date End Date Elsewhere, Pcp PCP - General Family Medicine 10/24/20 documented as of this encounter
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
--- OUTSIDE RECORDS SUMMARY | 2022-03-16 09:12 | XMS_ITS | Encounter Summary ---
:1990 Author Organization [facility] Address [address] [place] [address] Care Team Providers Name Role Phone [facility] Unavailable [phone] DoctorLiliam Primary Care Provider Unavailable Encounter Details Date Type Department Care Team Description 02/19/2022 Travel Social History Tobacco Use Types Packs/Day Years Used Date Smoking Tobacco: Every Day Smokeless Tobacco: Never Alcohol Use Standard Drinks/Week Comments No 0 (1 standard drink = 0.6 oz pure alcoho l) Sex Assigned at Date Recorded Not on file COVID-19 Exposure Response Date Recorded In the last 10 days, have you been in contact with No / Unsu re 02/19/2022 3:48 PM MANAGER BRANCH someone who was confirmed or suspected to have Coronavirus/COVID-19? documented as of this encounter Plan of Treatment Not on filedocumented as of this encounter Visit Diagnoses Not on filedocumented in this encounter Care Teams Fine Wire Drawer Relationship Specialty Start Date End Date [facility] PCP - [facility] [place] [address] [place] [phone] DoctorLiliam PCP - General Radiology 02/19/22 No ad documented as of this encounter
--- OUTSIDE RECORDS SUMMARY | 2022-03-16 09:12 | XMS_ITS | Clinical Summary ---
:1990 Author Organization [facility] Address [address] [place] [address] Care Team Providers Name Role Phone Elsewhere, Pcp Primary Care Provider Unavailable Source Comments Patient records contain information from all sites at [facility]. For routine questions regarding patient records, call [phone] during business hours, M-F 8:00 AM - 5:00 PM Central Time. Record requests for emergency care only can be directed to [phone] at any time.[facility] Allergies No known active allergies Medications Medication Sig Dispensed Refills Start Date End Date Status propranoloL (INDERAL) Take 20 mg by 0 08/13/2020 Active 20 mg tablet mouth 2 (two) times a day. omeprazole (PriLOSEC TAKE 1 TABLET BY 0 06/11/2020 Active OTC) [address] tablet MOUTH EVERY DAY BEFORE A MEAL busPIRone (BUSPAR) 10 0 07/09/2020 Active mg tablet ibuprofen Take 600 mg by 0 Activ e (ADVIL,MOTRIN) 600 mg mouth every 6 tablet (six) hours as needed for pain. Active Problems No known active problems Social History Tobacco Use Types Packs/Day Years Used Date Smoking Tobacco: Every Day Cigarettes Smokeless Tobacco: Never Tobacco Cessation: Ready to Quit: No; Co unseling Given: Yes Sex Assigned at Date Recorded Not on file Last Filed Vital Signs Vital Sign Reading Time Taken Comments Blood Pressure 101/75 10/24/2020 8:17 AM CDT Pulse 79 10/24/2020 8:17 AM CDT Temperature 35.9 ??C (96.6 ??F) 10/24/2020 8:17 AM CDT Respiratory Rate 16 10/24/2020 8:17 AM CDT Oxygen Saturation - - Inhaled Oxygen Concentration - - Weight 134 kg (296 lb 4.8 oz) 10/24/2020 8:17 AM CDT Height 164 cm (5' 4.57) 08/16/2020 10:22 AM CDT Body Mass Index 49.97 08/16/2020 10:22 AM CDT Plan of Treatment Health Maintenance Due Date Last Done Comments HIV Screening 1990 Hepatitis B Vaccines (1 of 3 - 1990 3-dose series) Hepatitis C Screening 1990 Pneumococcal vaccine (0-64 years) 1994 (1 - PCV) COVID-19 Vaccine (3 - Booster for 03/11/2021 01/14/2021, Pfizer series) Depression Screening (Annual 04/05/2021 PHQ-2) Tobacco Cessation counseling 10/24/2021 10/24/2020 Cervical Cancer Screening 06/22/2023 06/21/2020 DTaP,Tdap,and Td Vaccines (3 - Td 01/29/2027 01/29/2017, or Tdap) Influenza Vaccine Completed 12/10/2021, 01/28/2021, 03/13/2020, Additional history exists Insurance Payer Benefit Plan Subscriber ID Effective Dates Phone Address Type / Group [facility] [id number] 2021-Presen [phone] [address] Medicaid HMO t 5 [place] [address] Care Teams Psychosocial Rehabilitation Counselor Relationship Specialty Start Date End Date Elsewhere, Pcp PCP - General Family Medicine 10/24/20
--- OUTSIDE RECORDS SUMMARY | 2022-03-16 09:12 | XMS_ITS | Encounter Summary ---
:1990 Author Organization [facility] Address [address] [place] [address] Care Team Providers Name Role Phone Unavailable Primary Care Provider Unavailable Encounter Details Date Type Department Care Team Description 09/20/2020 Hospital Encounter Department of Saul Martinez Infe rtility Female Laboratory Medicine M[facility]rick in [address] [facility] [address] [place], [place] [phone] [address] (Work) [phone] Social History Tobacco Use Types Packs/Day Years [...] Name Priority Date/Time Associated Diagnosis Comme nts PROGESTERONE, S Routine 09/20/2020 1:32 PM Infertility Female Results for this CDT procedure are i n the results section. documented in this encounter Results Progesterone Level (09/20/2020 1:32 PM CDT) P athologist Signature Progesterone, S <0.20 See Note* [...] Laterality Blood (Blood, 09/20/2020 1:32 PM 09/22/19 7:43 Venous) CDT AM CDT Saul Martinez M.D. LAB BLOOD ADD-ON Performing Organization Address City/State/ZIP Code Phon e Number [facility] - [address] [place], [place] [address] [facility] [place] [address] Laboratories-[facility] [address] documented in this encounter Visit Diagnoses Diagnosis Infertility Female documented in this encounter
--- OUTSIDE RECORDS SUMMARY | 2022-03-16 09:12 | XMS_ITS | Encounter Summary ---
:1990 Author Organization [facility] Address [address] [place] [address] Care Team Providers Name Role Phone Unavailable Primary Care Provider Unavailable Encounter Details Date Type Department Care Team Description 07/31/2020 Community [facility] AND [facility] Erma Husain M.D. [address] [facility] [address] [place] [address] [place] [address] [phone] (Wo rk) Social History Tobacco Use Types Packs/Day Years Used Date Smoking Tobacco: Never Assessed Sex Assigned at Date Recorded Not on file documented as of this encounter Plan of Treatment Not on filedocumented as of this encounter Visit Diagnoses Not on filedocumented in this encounter
--- OUTSIDE RECORDS SUMMARY | 2022-03-16 09:13 | XMS_ITS | Encounter Summary ---
:1990 Author Organization [facility] Address [address] [place] [id number] Care Team Providers Name Role Phone Kilo Kovacs MD Primary Care Provider Dell Urbina [facility] - Unavailable [phone] Reason for Visit Reason Comments Back Pain Encounter Details Date Type Department Care Team Description 01/30/2013 Emergency [facility] Cassi Puri MD Emergency Care [address] [address] Social History Tobacco Use Types Packs/Day Years Used Date Smoking Tobacco: Former Smokeless Tobacco: Never Alcohol Use Standard Drinks/Week Comments No 0 (1 standard drink = 0.6 oz pure alcoho l) Sex Assigned at Date Recorded Not on file documented as of this encounter Discharge Instructions AttachmentsThe following attachments cannot be sent through Care Everywhere.BACK PAIN, ADULT (DANISH)documented in this encounter ED Notes Katrina Fosetr RN - 01/30/2013 9:02 PM CDT S: Ready for dsicharge B: Pt given discharge instrucitons with Eb by . A: BackPain R: Follow up as oordered Cassi Puri MD - 01/30/2013 9:01 PM CDT CC: Kilo Kovacs MD Primary Care Physician: Kilo Kovacs MD CHIEF COMPLAINT: Back pain. HISTORY OF PRESENT ILLNESS: The patient is a 18-year-old female who is presenting with acute on chronic mid back pain. The patient reports that she first had this pain approximately two to three years ago after falling off a bed and hitting her back in the middle upper back. She reports that since then she has had the pain intermittently. She reports that this particular pain became worse over the last few days and is currently constant. It is an aching pain in the middle of her upper back. 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 Pain is also worse with movement and sometimes improved with rest, although not always. The patient has tried Motrin for the pain without any relief. She denies any associated symptoms including fevers, chest pain, shortness of breath, cough, lower back pain, numbness or tingling of the extremities, weakness of the extremities, urinary symptoms, bowel incontinence, or saddle anesthesia. The patient has never had imaging or workup for this pain and has not ever done physical therapy. REVIEW OF SYSTEMS: A ten-point review of systems was completed and negative except that mentioned inthe HPI. PAST MEDICAL HISTORY: Prior ovarian cyst as well as intrauterine demise at 32 weeks and delivered in December of this year, approximately eight weeks ago. MEDICATIONS: Fioricet for migraines intermittently, otherwise none. ALLERGIES: None. FAMILY HISTORY: Noncontributory. SOCIAL HISTORY: The patient does smoke but does not use alcohol and denies a history of IV drug use.She works at a vegetable packing plant where she has to stand for long periods. PHYSICAL EXAMINATION: VITAL SIGNS: Temperature 36.9, pulse 83, respiratory rate 18, blood pressure 136/89, SPO2 98% on room air. GENERAL: The patient is a young female sitting in bed in no acute distress. HEENT: Head atraumatic. Eyes: Conjugate gaze. NECK: Supple. No posterior midline tenderness. LUNGS: Clear to auscultation bilaterally. HEART: Regular rhythm. No murmur appreciated. ABDOMEN: Soft, nontender, nondistended. MUSCULOSKELETAL: Symmetric-appearing extremities. BACK: Back exam shows diffuse midline tenderness around the T6 level that extends paravertebrally oneither side with some palpable muscle spasm bilaterally. She has no point midline tenderness and palpable stepoffs. NEUROLOGIC: She has 5/5 strength of her lower extremities and her upper extremities. She has sensation intact throughout. PSYCHIATRIC: The patient is cooperative and pleasant. IMAGING: X-ray of the thoracic spine shows no significant abnormalities of alignment, minimal scoliosis convex right centered at T5, convex left centered at T2-T3, no fractures, facets are normal, and posterior elements are normal. MEDICAL DECISION MAKING: The patient is a 22-year-old female who is presenting with acute on chronicmid back pain that began after a fall several years ago. The patient was seen and examined as above.She is noted to be afebrile and hemodynamically stable. She had no signs or symptoms of spinal cord compression. Given the chronicity of her pain as well as the initial trauma and her lack of prior workup for this, I did obtain x-rays to rule out a significant bony abnormality contributing to her pain. This showed some mild scoliosis at the area where she is having the pain, but no other significant abnormalities. It is possible this scoliosis is contributing to her chronic pain. I feel it is probably also exacerbated by her job at the vegetable packing factory where she is on her feet near constantly. The patient has no fevers or history of IV drug use to suggest an abscess. She has no shortness of breath or pleuritic nature to her pain to suggest pulmonary pathology or PE. I feel this is consistent with musculoskeletal back pain. The patient was given pain medications with significant relief of her pain. She was given a note for work to be off for the next several days, but was referred back to her primary care doctor for likely need for physical therapy. The patient was given a short courseof pain medication and Flexeril to control her symptoms during this acute exacerbation. She was amenable to this plan and was discharged home in good condition. CLINICAL IMPRESSION: Acute on chronic mid back pain, possibly related to scoliosis. DISPOSITION: Home. Cassi Puri MD :/ Dictation ID: [id number] STINE Morales RN (Josh) - 01/30/2013 6:28 PM CDT S: Pt here for backpain. B: Pt states she hurt back 3 years ago. A: Pt resting in bed. R: Provider to monitor documented in this encounter Plan of Treatment Not on filedocumented as of this encounter Procedures Procedure Name Priority Date/Time Associated Diagnosis Comme nts XR SPINE THORACIC STAT 01/30/2013 6:57 PM Resu lts for this AP/LAT ONLY CDT procedure are i n the results section. documented in this encounter Results XR SPINE THORACIC AP/LAT ONLY (01/30/2013 6:57 PM CDT) Anatomical Region Laterality Modality Spine Computed Radiography Specimen (Source) Anatomical Collection Method Collection Time Re ceived Time Location / / Volume Laterality 01/30/2013 8:27 PM CDT Impressions 01/30/2013 8:28 PM CDT IMPRESSION: No significant abnormality. Narrative 01/30/2013 8:28 PM CDT THORACIC SPINE AP AND LATERAL VIEWS 01/30/2013 6:49 PM CLINICAL: Chronic pain in midline. ??A f all. FINDINGS: No significant abnormality of alignment. ??Minimal scoliosis convex right centered at T5, convex left centered at T2 -- 3. ??No fracture. ??Space heights are normal. ??Posterior elements are normal. Procedure Note Warren Giang MD - 01/30/2013Forma tting of this note might be different from the original. THORACIC SPINE AP AND LATERAL VIEWS 01/04 6:49 PM CLINICAL: Chronic pain in midline. A fal l. FINDINGS: No significant abnormality of alignment. Minimal scoliosis convex right centered at T5, convex left centered at T2 -- 3. No fracture. Space heights are normal. Posterior elements are normal. IMPRESSION: No significant abnormality. Cassi Puri MD XRAY ORDERABLE documented in this encounter Visit Diagnoses Diagnosis Back pain, thoracic - Primary Pain in thoracic spine documented in this encounter Administered Medications Inactive Administered Medications - up to 3 most recent administrations Medication Order MAR Action Action Date Dose Rate Site HYDROcodone 5 mg-acetaminophen Given 01/30/2013 6:45 PM CDT 2 ta blets 325 mg (NORCO) 5-325 mg tablet 1-2 Tab 1-2 tablet, oral, ONCE, 1 dose, On 10/28/13 at 1845 documented in this encounter Active and Recently Administered Medications Times are shown in CDT. Scheduled Medication Order 01/28/2013 01/29/2013 01/30/2013 HYDROcodone 5 mg-acetaminophen 325 mg (N ORCO) 5-325 mg tablet 1-2 Tab (COMPLETED) 1845 (Given - Provid er: Ki Morales (Josh), RN) 1-2 Tab, Oral, ONE TIME DOSE, 1 dose, 01/30/13 at 1845 documented in this encounter Care Teams Courtesy Car Driver Relationship Specialty Start Date End Date Kilo oKvacs MD PCP - General Obstetrics/Gynecolog 11/15/12 02/18/22 y Dell Urbina PCP - Primary Care 11/15/1202/03 [facility] - [address] [facility] [place] [id number] documented as of this encounter
--- OUTSIDE RECORDS SUMMARY | 2022-03-16 09:13 | XMS_ITS | Encounter Summary ---
:1990 Author Organization [facility] Address [address] [place] [address] Care Team Providers Name Role Phone Kilo Kovacs MD Primary Care Provider Dell Urbina [facility] - Unavailable [phone] Reason for Visit Reason Comments Abdominal Pain Encounter Details Date Type Department Care Team Description 02/05/2013 Emergency [facility] Joon Colón MD Emergency Care [facility] [address] [facility] [address] [place], [place] [address] [address] [place] [address] [phone] (Wo rk) Social History Tobacco Use Types Packs/Day Years Used Date Smoking Tobacco: Former Smokeless Tobacco: Never Alcohol Use Standard Drinks/Week Comments No 0 (1 standard drink = 0.6 oz pure alcoho l) Sex Assigned at Date Recorded Not on file documented as of this encounter Discharge Instructions AttachmentsThe following attachments cannot be sent through Care Everywhere. ABDOMINAL PAIN (NONSPECIFIC) ([place]ONG [place])documented in this encounter ED Notes Lavon Colón MD - 02/05/2013 1:45 PM CST CC: CHIEF COMPLAINT: Epigastric abdominal pain. HISTORY OF PRESENT ILLNESS: A 22-year-old Prydeinig speaking female who presents with five years of some epigastric pain. She has been taking antacids and some Vistaril. She has been told in the past shehas had gastritis. It just gets a little bit worse today. She has been on intermittent medications. She comes to the hospital a fair amount with pain issues. She has had a recent intrauterine demise at 31 weeks' requiring delivery here, and then she had some backache a couple weeks ago for whichshe was seen as well. No urinary symptoms, no fever, no chills. She points directly to the epigastric area and saying this is the exact same pain she has had, actually for years. She does not think sheis . She has not really gotten her period in the last month after the intrauterine demise issue. PAST MEDICAL HISTORY: She has had a history of a recent intrauterine demise, a history of somemild hypertension. MEDICATIONS: She is on some hydroxyzine. ALLERGIES: No known medicines. SOCIAL HISTORY: Former smoker. Speaks mainly Prydeinig. REVIEW OF SYSTEMS: No lower abdominal pain. No dysuria, urgency or frequency. No vaginal bleeding ordischarge. Remainder of a ten-system review is otherwise negative. PHYSICAL EXAMINATION: VITAL SIGNS: Temp 97.8, pulse 97, respiratory rate 16, BP 140/100, O2 sats 100%. GENERAL: This 22-year-old female looks her stated age. HEENT: Pupils and conjunctivae are clear. Oropharynx: Moist mucous membranes. NECK: Supple. LUNGS: Clear, equal breath sounds. HEART: Regular rate and rhythm. ABDOMEN: There is direct epigastric tenderness to very mild palpation but her belly is very soft. The right upper quadrant and left upper quadrant seem less involved. Lower abdomen is soft, benign, without tenderness. BACK: No CVA tenderness. SKIN: Warm and dry. PSYCHIATRIC: Mood and affect are normal. EMERGENCY DEPARTMENT COURSE: I used Radha Saab, one of our ER nurses who speaks excellent Prydeinig, as an wireless field technician. Family was comfortable with the plan. She received a GI cocktail with some improvement. At this point, I see no indication for any further testing. This is a very subacute process. They are looking just for some followup I think, and will try her on some omeprazole to see if this helps. FINAL DIAGNOSIS: Subacute epigastric pain. DISPOSITION AND PLAN: Protonix 40 mg a day is recommended, a prescription was provided. Epigastric pain instructions were given. GI referral was made. She was discharged in excellent condition. Lavon Colón MD /JG Dictation ID: [id number] CIATE PROFESSOR OF CHEMISTRY Radha Saab RN - 02/05/2013 1:43 PM CST S: Discharge B: Verbal and written discharge instructions given. A: Pt verbalizes understanding. R: Pt leaves ambulatory in NAD. CIATE PROFESSOR OF CHEMISTRY Radha Saab RN - 02/05/2013 1:35 PM CST Pt reports she feels mildly improved, updated. CIATE PROFESSOR OF CHEMISTRY Radha Saab RN - 02/05/2013 12:36 PM CST S: Epigastric AP B: Has been ongoing for years, has been in to clinic, taking an antacid and vistaril and told she had gastritis. Was referred to have an endoscopy, was never done. Had a miscarriage about a month ago, has not had a regular period. A: Pain is worse after eating, feels like she is nauseated but never throws up. No diarrhea, fever. R: Provider to see. CIATE PROFESSOR OF CHEMISTRY documented in this encounter Plan of Treatment Not on filedocumented as of this encounter Procedures Procedure Name Priority Date/Time Associated Comments Diagnosis URINALYSIS STAT 02/05/2013 12:06 Results for this MACROSCOPIC W/ PM ASSOCIATE PROFESSOR OF CHEMISTRY procedure are in MICROSCOPY, IF the results INDICATED (DOES NOT section. INC CULTURE) HCG URINE STAT 02/05/2013 12:06 Results for this PM ASSOCIATE PROFESSOR OF CHEMISTRY procedure are i n the results section. documented in this encounter Results HCG Urine (02/05/2013 12:06 PM ASSOCIATE PROFESSOR OF CHEMISTRY) P athologist Signature HCG URINE Negative 02/05/2013 DUSTIN WAGONER 12:59 PM ASSOCIATE PROFESSOR OF CHEMISTRY LABORATORY Specimen Anatomical Collection Method Collection Time Receive d Time (Source) Location / / Volume Laterality Urine specimen URINE SPECIMEN / 02/05/2013 12:06 02/05 (specimen) Unknown PM ASSOCIATE PROFESSOR OF CHEMISTRY 12:50 PM ASSOCIATE PROFESSOR OF CHEMISTRY Lavon Colón MD URINE ORDERABLE Performing Organization Address City/[facility]/ZIP Code Phon e Number [facility] [address] [place] [address] [facility] (ABNORMAL) Urinalysis w/ Microscopy, if indicated (02/05/2013 12:06 PM ASSOCIATE PROFESSOR OF CHEMISTRY) [facility] Method Time Signature PH URINE 7.0 4.5 - 8.0 02/05/2013 [place] 12:55 PM LABORATORY ASSOCIATE PROFESSOR OF CHEMISTRY SP.GRAVITY, <=1.005 (L) 1.015 - 02/05/2013 [place] UA 1.025 12:55 PM LABORATORY ASSOCIATE PROFESSOR OF CHEMISTRY GLUCOSE, UA Negative Negative 02/05/2013 [place] mg/dL 12:55 PM LABORATORY ASSOCIATE PROFESSOR OF CHEMISTRY KETONE, UA Negative Negative 02/05/2013 [place] mg/dL 12:55 PM LABORATORY ASSOCIATE PROFESSOR OF CHEMISTRY BILIRUBIN, UA Negative Negative 02/05/2013 [place] 12:55 PM LABORATORY ASSOCIATE PROFESSOR OF CHEMISTRY UROBILINOGEN, 0.2 0.2 - 1.0 02/05/2013 [place] UA EU/dL 12:55 PM LABORATORY ASSOCIATE PROFESSOR OF CHEMISTRY PROTEIN, UA Negative Negative 02/05/2013 [place] mg/dL 12:55 PM LABORATORY ASSOCIATE PROFESSOR OF CHEMISTRY OCCULT BLOOD, Negative Negative, 02/05/2013 [place] [facility] Trace, 12:55 PM LABORATORY TRACE-LYSED, ASSOCIATE PROFESSOR OF CHEMISTRY TRACE-INTACT WBC ESTERASE, Negative Negative, 02/05/2013 [place] [facility] Trace 12:55 PM LABORATORY ASSOCIATE PROFESSOR OF CHEMISTRY NITRITE, UA Negative Negative 02/05/2013 [place] 12:55 PM LABORATORY ASSOCIATE PROFESSOR OF CHEMISTRY Specimen Anatomical Collection Method Collection Time Receive d Time (Source) Location / / Volume Laterality Urine specimen URINE SPECIMEN / 02/05/2013 12:06 02/05 (specimen) Unknown PM ASSOCIATE PROFESSOR OF CHEMISTRY 12:50 PM ASSOCIATE PROFESSOR OF CHEMISTRY Lavon Colón MD URINE ORDERABLE Performing Organization Address [facility]/ZIP Code Phon e Number [facility] [address] [place] [address] [facility] [phone] documented in this encounter Visit Diagnoses Diagnosis Abdominal pain, epigastric - Primary documented in this encounter Administered Medications Inactive Administered Medications - up to 3 most recent administrations Medication Order MAR Action Action Date Dose Rate Site GI COCKTAIL (lidocaine 2%-MYLANTA Given 02/05/2013 1:15 PM ASSOCIATE PROFESSOR OF CHEMISTRY 3 0 mL suspension) 30 mL, oral, NOW, 1 dose, On 02/05/13 at 1315, GI COCKTAIL= 15 mL 2% viscous LIDOCAINE + 15 mL MYLANTA susp documented in this encounter Active and Recently Administered Medications Due to Daylight Saving Time, this section may contain times in both CDT and ASSOCIATE PROFESSOR OF CHEMISTRY. Scheduled Medication Order 02/03/2013 02/04/2013 02/05/2013 GI COCKTAIL (lidocaine 2%-MYLANTA suspension) (COMPLETED) 1315 (Given - Provider: Idalia Arredondo RN) 30 mL, oral, NOW, 1 dose, On 02/05/13 at 1315, GI COCKTAIL= 15 mL 2% viscous LIDOCAINE + 15 mL MYLANTA susp documented in this encounter Care Teams Salesperson Shoes Relationship Specialty Start Date End Date Kilo Kovacs MD PCP - General Obstetrics/Gynecolog 11/15/12 02/18/22 y Dell Uribna PCP - Primary Care 11/15/1202/03 [facility] - [address] [facility] [place] [id number] documented as of this encounter
--- OUTSIDE RECORDS SUMMARY | 2022-03-16 09:13 | XMS_ITS | Encounter Summary ---
:1990 Author Organization [facility] Address [address] [place] [id number] Care Team Providers Name Role Phone Kilo Kovacs MD Primary Care Provider [facility] - Unavailable [phone] Reason for Referral (Routine) - Closed Specialty Diagnoses / Procedures Referred By Contact Refer red To Contact Procedures Lavon Mack MD Driving [address] [facility] [place], [place] [address] Referral ID Status Reason Start Date Expiration Date Visits Requ ested Visits Authorized [id number] Closed 12/05/2012 06/03/2013 1 1 (Routine) - Closed Specialty Diagnoses / Procedures Referred By Contact Refer red To Contact Procedures Lavon Mack MD Activity as tolerated [address] [facility] [place], [place] [address] Referral ID Status Reason Start Date Expiration Date Visits Requ ested Visits Authorized [id number] Closed 12/05/2012 06/03/2013 1 1 (Routine) - Closed Specialty Diagnoses / Procedures Referred By Contact Refer red To Contact Lavon Mack M D [address] [facility], [place] [address] Referral ID Status Reason Start Date Expiration Date Visits Requ ested Visits Authorized [id number] Closed 12/05/2012 06/03/2013 1 1 Scheduling Instructions If your follow up appointment is not alr miracle scheduled, CALL today or tomorrow to schedule it. Question Answer Which physician? ARIANNA PINEDA [[id number]] Provider / Clinic Phone Number? [phone] Specify time frame for follow up? 2 Weeks Comments [facility] (Routine) - Closed Specialty Diagnoses / Procedures Referred By Contact Refer red To Contact Lavon Mack M D [address] [facility], [place] [address] Referral ID Status Reason Start Date Expiration Date Visits Requ ested Visits Authorized [id number] Closed 12/05/2012 06/03/2013 1 1 Scheduling Instructions If your follow up appointment is not alr miracle scheduled, CALL today or tomorrow to schedule it. Question Answer Which physician? [facility] [[id number]] Provider / Clinic Phone Number? [phone] Specify time frame for follow up? 4 Weeks Comments Obstetrics follow up (Routine) - Closed Specialty Diagnoses / Procedures Referred By Contact Refer red To Contact Procedures Lavon Mack MD Diet: Regular [address] [facility] [place] [address] Referral ID Status Reason Start Date Expiration Date Visits Requ ested Visits Authorized [id number] Closed 12/05/2012 06/03/2013 1 1 (Routine) - Closed Specialty Diagnoses / Procedures Referred By Contact Refer red To Contact Procedures Lavon Mack MD Discharge Instructions - [address] Pelvic Rest [facility] [place], [place] [address] Referral ID Status Reason Start Date Expiration Date Visits Requ ested Visits Authorized [id number] Closed 12/05/2012 06/03/2013 1 1 (Routine) - Closed Specialty Diagnoses / Procedures Referred By Contact Refer red To Contact Procedures Lavon Mack MD Shower [address] [facility] [place], [place] [address] Referral ID Status Reason Start Date Expiration Date Visits Requ ested Visits Authorized [id number] Closed 12/05/2012 06/03/2013 1 1 (Routine) - Closed Specialty Diagnoses / Procedures Referred By Contact Refer red To Contact Procedures Lavon Mack MD Discharge [address] [facility] [place], [place] [address] Referral ID Status Reason Start Date Expiration Date Visits Requ ested Visits Authorized [id number] Closed 12/05/2012 06/03/2013 1 1 Reason for Visit Inpatient Admission - Closed Specialty Diagnoses / Procedures Referred By Contact Refer red To Contact Diagnoses [facility] [address] [place] [address] Phone: Fax: Referral ID Status Reason Start Date Expiration Date Visits Requ ested Visits Authorized [id number] Closed 1 Encounter Details Date Type Department Care Team Description 12/01/2012 - Hospital [facility] [address] Kilo Kovacs, IUFD (intrauterine 12/05/2012 Encounter [address] [place] [place] [address] [place] [phone] [place], [place] [address] Social History Tobacco Use Types Packs/Day Years Used Date Smoking Tobacco: Former Smokeless Tobacco: Never Alcohol Use Standard Drinks/Week Comments No 0 (1 standard drink = 0.6 oz pure alcoho l) Sex Assigned at Date Recorded Not on file documented as of this encounter Last Filed Vital Signs Vital Sign Reading Time Taken Comments Blood Pressure 155/89 12/05/2012 7:50 AM CDT Pulse 74 12/05/2012 7:50 AM CDT Temperature 36.7 ??C (98 ??F) 12/05/2012 7:50 AM CDT Respiratory Rate 16 12/05/2012 7:50 AM CDT Oxygen Saturation - - Inhaled Oxygen Concentration - - Weight 112.5 kg (248 lb) 12/01/2012 10:03 AM CDT Height 162.6 cm (5' 4) 12/01/2012 10:03 AM CDT Body Mass Index 42.57 12/01/2012 10:03 AM CDT documented in this encounter Discharge Summaries Lavon Mack MD - 12/05/2012 8:17 AM CDT OB DISCHARGE SUMMARY Patient Name: Kayleigh Stahl Date of : 1990 Attending Provider: Kilo Kovacs MD Admission Date: 12/01/2012 Discharge Date: 12/05/2012 Kayleigh Stahl will be discharged to home. Condition is good. PRINCIPAL DIAGNOSIS IUFD (intrauterine ) FINAL DIAGNOSES Principal Problem: IUFD (intrauterine ) Active Problems: Migraine headache Hypertension in PROCEDURES PERFORMED Vaginal delivery of a demise DISCHARGE MEDICATIONS Current Discharge Medication List NEW MEDICATIONS Details gtznzixybswsr-qndlomti-fhvclrlqad (FIORICET/ESGIC) 50-325-40 mg Oral Tab Take 1- 2 Tabs by mouth every 4 (four) hours as needed (headache). Qty: 30 Tab, Refills: 0 MEDICATIONS CONTINUED UNCHANGED Details vitamin-iron carbonyl-folic acid ( AD) 90-1-50 mg Oral Tab Take 1 Tab by mouth OnceDaily. DISCHARGE PROCEDURES AND FOLLOW-UP Discharge Procedure Orders Shower You may shower normally. Discharge Instructions - Pelvic Rest Nothing should be placed vaginally until your next visit. This includes tampons, douches, and intercourse. Activity as tolerated Driving You may drive when you no longer require narcotic pain medication and are able to stop without pain. Discharge Disposition? Returning Home/Self Care Expected discharge date? 12/05/2012 Diet: Regular Follow Up Obstetrics follow up If your follow up appointment is not already scheduled, CALL today or tomorrow to schedule it. Which Provider? [facility] [[id number]] Provider / Clinic Phone Number? [phone] Specify time frame for follow up? 4 Weeks Follow Up [facility] If your follow up appointment is not already scheduled, CALL today or tomorrow to schedule it. Which Provider? ARIANNA PINEDA [[id number]] Provider / Clinic Phone Number? [phone] Specify time frame for follow up? 2 Weeks INTRA- COMPLICATIONS None ABNORMAL LABS None POST- COMPLICATIONS None DISCHARGE DIAGNOSES Principal Problem: IUFD (intrauterine ) Active Problems: Migraine headache Hypertension in Time: 30 minutes or less Lavon Mack MD Day of Service: 12/05/2012 documented in this encounter Discharge Instructions Discharge InstructionsRamona Reis RN - 12/05/2012 8:37 AM CDT If you smoke, you're advised to quit. Discharge Procedure Orders Shower You may shower normally. Discharge Instructions - Pelvic Rest Nothing should be placed vaginally until your next visit. This includes tampons, douches, and intercourse. Activity as tolerated Driving You may drive when you no longer require narcotic pain medication and are able to stop without pain. Discharge Disposition? Returning Home/Self Care Expected discharge date? 12/05/2012 Diet: Regular Follow Up Obstetrics follow up If your follow up appointment is not already scheduled, CALL today or tomorrow to schedule it. Which Provider? [facility] [[id number]] Provider / Clinic Phone Number? [phone] Specify time frame for follow up? 4 Weeks Follow Up [facility] If your follow up appointment is not already scheduled, CALL today or tomorrow to schedule it. Which Provider? ARIANNA PINEDA [[id number]] Provider / Clinic Phone Number? [phone] Specify time frame for follow up? 2 Weeks The following information has been given to you: Post Discharge Instructions and Post Depression Community Services/Referrals: Declined IV access removed: N/A Valuables/Belongings returned: Yes Meds from Home returned: NA 12/05/2012 8:36 AM D/C Instructions ScanScanned Doc - 12/07/2012 11:04 AM CDT documented in this encounter Progress Notes Ramona Reis RN - 12/05/2012 2:05 PM CDT S: Discharge Note B: IUFD delivered 12/03/12. Hx Of migraines and chronic hypertension. Orders for discharge. Bulgarian speaking only. A: Airplane Pilot Helper arrived at 1200. Discharge instructions reviewed. Self care reviewed. Pt and verbalized understanding. Pt has home information and all of the momentos from delivery. Reviewed s/s post depression and normal grief. Pt verbalized understanding to call OB clinic with any s/s post depression to get a referral for a therapist if needed.. Grief support groupinformation given. Pt has a copy of [facility] written in kuwaiti. Pt and denied having questions. All paperwork is completed. Pt to f/u with OB clinic in 4 weeks. Pt to f/u with neurology in 2 weeks for migraines. R: Pt discharged via self ambulation at 1255. Ramona Reis RN - 12/05/2012 8:30 AM CDT S: Pt Status B: on 12/03/12 at 0835 IUFD. Hx migraines, hx of chronic hypertension A: BP this am 155/89. Pt c/o of headache 4/10 and abdominal cramping 6/10. Hot pack applied to abdomen. Ibuprofen and 1 fioricet given around 0750. Pt is stable. Dr Mack visited pt. Discharge orders given. Plan on automotive parts interpreter to arrive at 1200 today. Will review discharge information at that time. All forms pertaining to IUFD are completed. R: Prepare for discharge. Plan discharge for around noon today. Stacy Carlton RN - 12/04/2012 1:15 PM CDT S: IUFD recovery B: of IUFD 12/03/12 @ 0835 of baby boy with no complications A: Raegan with [facility] home to bedside for discussion of services offered and process forcremation of fetus with assistance from Oneyda Matthew Airplane Pilot Helper from [employer].; pt and FOB verbalized understanding of all and paperwork filed with Raegan. Dr Tillman to bedside with Oneyda (automotive parts interpreter) for pt evaluation and discussion of plan of cares during the rest of recovery in the hospital as wellas expectations for the next 4wks-2months explaining care instructions and follow up appointments with referral to neurologist consult for h/o chronic headaches--pt and FOB verbalized understanding and agreement; pt c/o stuffy nose and sore throat to MD with order rec'd for NS nasal spray (pt given with instructions and demonstrated well) R: Pt requests to stay overnight tonight and dc home in AM Oscar Tillman MD - 12/04/2012 1:12 PM CDT Kayleigh Stahl 1990 PPD #1 s/p IUFD and Reviewed chart. No new or significant symptoms except nasal congestion and right knee pain but better with symptomatic treatment. BP stable and headache improved now. Exam neg. A/P: Doing well. Additional applicable diagnoses as outlined in updated Problem List. Continue care and meds as per orders. Anticipate discharge on 12/05. Instructions reviewed. I discussed in detail the follow-up plan through automotive parts interpreter. Pt plans to seeme in 4 weeks and will review all test results then and she will also make an appt with Dr. Pineda in Neurology for consult on her chronic headaches. Oscar Tillman MD Bertha Coley RN - 12/03/2012 10:30 PM CDT Patient continued to c/o right knee pain after Ibuprofen and heat, she was rating pain 10/10. One Percocet given at 1957 and anesthesia notified. Patient evaluated by Dr Delatorre who advised to continue with pain medication and ice as she does not feel it is related to epidural. Second Percocet given at 2211 d/t pain being rated 6/10. Pt also given Ambien to help assist her with sleep. Patient andsignificant other, Tomi, would like to have baby cremated but had questions about if there was a payment option through the home, Karina Ramos. home contacted regarding wishes andquestions. There is no payment plan option; however there is a county assistance program that would p ay, if patient qualifies. Karina Ramos will call hospital tomorrow with a time they will come discuss and go through paperwork with patient. Patient and Tomi notified of plan and in agreement. Communication done tonight through [employer]. Plan to have automotive parts interpreter present when home comes. Allquestions and concerns answered at this time. Patient encouraged to sleep. Stacy Carlton RN - 12/03/2012 5:24 PM CDT S: IFUD B: Mom @ 31.6 wks Maternal Labs: O+/RI/HepB- ALL: NKDA complications: IUFD A: Baby BOY delivered via date12/03/12 @ time 0835 Apgars 0/0 Weight 3#4, baby viewed one final time at 1700 [facility], family unsure of cremation vs burial at this time and will stay overnight with decision tomorrow R: loss plan of care Ramona Reis RN - 12/02/2012 7:40 PM CDT S: Shift Note B: CARMEN 01/[birth year]/13 at 31.5 weeks gestation. Presented to triage 12/01 with a migraine. IUFD was discovered at that time with assessment. Pt is being followed by [facility]. Dr Moreland is following today. Verbal report given to Bertha Coley. Relinquished pt care. A: VSS. BP have been within normal range. Pt and are tearful and very emotional about the loss of their son. A curriculum designer saw pt yesterday. Pt and are declining another curriculum designer visit at the time of delivery. Sarai Alex is aware that pt is here and is available to come in if needed. Pt does not want an autopsy. [facility] has been called. Message left on voicemail. [facility] has been notified. They are requesting a phone call at time of delivery. Baby is not suitable for tissue donation. Pt has had cervidil and 3 doses cytotec. Pt started ctx around 1400. At 1715 SVE 2/100/-1.Plan to start pitocin at this time. Pt has epidural and denies feeling pain. Pt does have anongoing migraine. Rates headache pain 5-7/10. Lights are dimmed in room. Pt has ice pack for head. Pt has had maximum dose of fioricete in 24 hours. Vistaril and Imitrex are available. gave a sponge bath today. Linens were changed at that time. R: Continue with POC and SOP for this pt. Offer care and support. Provide automotive parts interpreter throughout labor process. Ramona Reis RN - 12/02/2012 2:28 PM CDT S: Airplane Pilot Helper B: Pt is kuwaiti speaking only. Airplane Pilot Helper was here this morning. She stated that she needed to leave at 1340. A: Spoke to family. Currently, there is a family member present that speaks iranian. Pt is not in labor and denies need for automotive parts interpreter at this time. Plan for RN to call automotive parts interpreter when pt starts to have active labor. At this time, pt and family state that all of their questions are answered. R: Plan to call automotive parts interpreter if pt starts to active labor or baljeet changes or concerns arise. YOAN montoyajamaal the room. Ramona Reis RN - 12/02/2012 2:24 PM CDT Late Entry for 1230 S: Eating while epidural is in place. B: Pt states that she is starving. Pt tried chicken broth and had emesis. Pt requesting Mashed potatoes. A: Dr Moreland and Dr Byrd okay if pt eats mashed potatoes. Dietary was called. R: Monitor for nausea/emesis. Rmaona Reis RN - 12/02/2012 2:15 PM CDT Late entry for 1045 this am S: Headache Pain B: CARMEN [birth year] at 31.5 days gestation. Presented to triage on 12/01/12 for severe migraine pain. It was during the assessment that the IUFD was found. Pt has hx of migraines and chronic hypertension. PIH labs were drawn and are all normal. Labs:O+/Hep b neg/RI. Followed by [facility]. Dr Moreland following pt today. A: Pt rated headache pain 4-5/10 at 1045. She stated that she does not want her headache to become severe again. Pt has been taking fioricet to manage migraine pain today. Fioricet has a 24 hour limit of 6 tablets for the maximum amt of Butabutal. Pt has taken 5 tablets today. She is aware that she may have 1 more tablet. Spoke with pharmacy and Dr Moreland. Imitrex and vistaril were ordered for the pt.The last dose of Fioricet was due at 1245. Pt stated that she wanted to wait and take it later. R: Call pharmacy for imitrex dose when needed. Juliana Moreland MD - 12/02/2012 1:41 PM CDT Patient complains of Hobbs, No visual changes or epigastric pain Starting to feel cramps. BP 128/82 Pulse 84 Temp(Src) 98.2 ??F (36.8 ??C) Resp 18 Ht 5' 4 (1.626 m) Wt 112.492 kg (248 lb) BMI 42.55 kg/m2 Contractions: mild irregular SVE: 1 cm/ per nurse Results for orders placed during the hospital encounter of 12/01/12 CBC (HGB,HCT,WBC,RBC,PLATELET) Result Value Range WBC 12.7 (*) 4.3-10.8 K/uL RBC 4.74 4.20-5.40 M/uL HEMOGLOBIN 13.9 12.0-16.0 gm/dL HEMATOCRIT 40.1 36.0-48.0 % MCV 85 80-100 fl MCH 29 27-33 pg MCHC 35 33-36 gm/dL RDW 13.4 11.5-14.5 % PLATELET COUNT 268 150-400 K/uL MPV 10.5 6.5-12.0 PARTIAL THROMBOPLASTIN TIME Result Value Range PTT 28.8 24.0-33.0 sec. PROTIME & INR Result Value Range PROTIME 10.2 9.5-12.5 sec. INR 1.0 0.9-1.1 AST (SGOT) Result Value Range AST (SGOT) 18 12-45 IU/L ALT (SGPT) Result Value Range ALT 20 12-78 IU/L URIC ACID, SERUM Result Value Range URIC ACID 4.3 2.6-7.2 mg/dL TYPE AND SCREEN Result Value Range GROUP AND RH O Positive ANTIBODY SCREEN Negative DRUG OF ABUSE, UR W/ CONFIRMATION ([facility]) Result Value Range AMPHETAMINES Negative Negative BARBITURATES Negative Negative BENZODIAZEPINES Negative Negative COCAINE METAB Negative Negative PCP Negative Negative THC METABOLITES Negative Negative OPIATES Negative Negative METHADONE Negative Negative A/P 22 y.o. at 31w5d IUFD - Continue with cervical ripening with anticipation for pitocin augmentation as needed. JULIANA MORELAND MD Ike Payne - 12/02/2012 1:09 PM CDT attempted visit with pt and significant other, Tomi, per plan of care. Port Patrol Officer collaborated with RN, who reports pt has complained of headache and continues to rest. Epidural placed. No significant contractions. Port Patrol Officer will continue to follow as able and is available upon request. Megan Kelly - 12/02/2012 10:03 AM CDT S: update- assumed care at 0730 B: at 30.5wks admitted yesterday with IUFD. Bulgarian speaking only, here and supportive,both grieving appropriately. Pt with hx of elevated BPs (probably chronic- per patient's report- treated in [place] but did not tolerate meds) and migraine headaches. Cervidil yesterday x 12hrs, cytotec #1 at [address] and working well for pain management, mayen to gravity. A: VSS (occ elevated BPs- Dr Moreland aware). Headache continues but has improved with Fioricet during the night. Contractions mild and irregular. Cervix 1/50/-2 at 0830, 2nd Cytotec placed, Zofran given for nausea. Pt requesting further Fioricet- permission received from Dr Warren, [facility] to administer Fioricet while epidural infusing.- 2 tabs given. R: Report to Angelica Will rn at 0930 to assume care. Emotional support/comfort given. spanish interpreter here. Continue care per orders, consult with Sarai Alex, nurse navigator/bereavement specialist. Nallely Lawrence RN - 12/01/2012 11:57 PM CDT Pt voiced concern, through the automotive parts interpreter, regarding her constant headache that has been unrelievedwith use of multiple narcotic medications since her admission. Ice applied to forehead at present. BP remains slightly elevated 141/[address] Silva informed of this and order reciveved for Navin gomez. Cervadil remians in place for cervical ripening until 0200, then plan to begin Cytotec. Pt states her cramping was decreased with Fentanyl. She is intermittantly tearful, though appears to be coping appropriatley at this time. Will continue to anger control counselor pt regarding expectations at time of delivery, and will discuss her and her husbands wishes for the process with automotive parts interpreter present. Timur Elliott - 12/01/2012 7:57 PM CDT Upon visit, family were on the phone. Pt is very tearful. speaks to pt with gentle authority, explaining what he feels would be best for her. When I ask her what she desires, she looks to him to provide response. There is no present request for a blessing. Pt is unable to sleep and is struggling to process this event. encourages pt to rest her body and mind. He is very tender with herand is at her side, holding her hand. They have an aunt in the area who [facility]. I am unsure of mosque affiliation. They do not have anyone who needs to be called at this time. Chaplains will continue to follow as needed. Please page the consumer insight manager curriculum designer if there are over night needs. Ike Payne - 12/01/2012 1:38 PM CDT Port Patrol Officer visited pt and significant other, Tomi, via automotive parts interpreter per natural resource economist and introduced spiritual care services. Kayleigh is approximately 31.5 weeks gestation and presented to triage with a headache and sensation of decreased movement. demise confirmed and pt admitted to L&D. Kayleigh remained relatively quiet throughout the conversation while Tomi was much more verbal. Both Kayleigh and Tomi verbalized their deep sadness and the shock of receiving a grim diagnosis. In this way, both Kayleigh and Tomi seem to have little expectation regarding how the induction process will unfold from an emotional point of view. Port Patrol Officer worked with the couple to begin reframing this is an opportunity be w ith and cherish their child. Tomi and Kayleigh report they are both Religion, and that prayer is important to them. Of note, prayers for strength and support to get through this time were emphasized, not necessarily prayers/blessing/anabaptism for the baby, Who is already . Port Patrol Officer provided spiritual/emotional support and prayer per couple request. Port Patrol Officer will continue to follow as able and is available upon request. Shea Mitchell RN - 12/01/2012 10:49 AM CDT S: Triage Note B: edc [birth year]13 31.4wks. Maternal Labs O+, RI, Hep B neg, GBS unknown. Uncomplicated . A: BP 151/106 Pulse 90 Temp(Src) 97.7 ??F (36.5 ??C) Resp 16 Ht 5' 4 Wt 112.492 kg (248 lb) BMI 42.55 kg/m2 Pt presents to LD for c/o headache for awhile. States was prescribed tylenol to take along with tylenol PM, but it hasn't helped. Denies blurred vision, seeing spots, uppper GI pain. +1 lower extremityedema noted. Pt and Tomi only speak kuwaiti. Able to talk through [employer] system, until automotive parts interpreter available. States hasn't had any problems with thus far. Last felt baby move last night and this morning. Denies bleeding or leaking or ctx's on arrival. Hasn't been taking any vitamins, but states last night ran out of Tylenol PM so took an Advil PM. Is worried that taking Advil caused us to not be able to find FHT's. Dr. Vaca available as Dr. Kovacs in surgery, confimed no fetalcardiac activiy noted. R: Will place PIH labs due to pt's increased BP's. Will make a plan with Dr. Kovacs for delivery once available. Shea L Loats, RN Jory Vaca - 12/01/2012 10:47 AM CDT Pt is a 22yo female at 31+4 weeks EGA who presented to triage today with c/o HOBBS and decreased FM. Hasn't felt baby move since late last night/early this am. Her has only been complicated by HOBBS - has been taking Tylenol during the day and Tylenol PM at night. Last night took Advil PM once. She is a pt of the [facility], but Dr. Kovacs is in OR right now. RNs were not able to hear heart tones, so requested US. I went in to do US for cardiac activity. Bedside US by me shows baby in vertex presentation. There is no cardiac activity or movement noted. No FHT picked up on M-mode. I watched chest for 3 minutes, no cardiac activity noted. US stopped to tell patient (via [employer] automotive parts interpreter b/c she is Bulgarian-speaking) about demise. She is appropriately shocked and upset, requested time alone with . She requests all testing be done to find out why this happened. I assured her that I do not think this happened b/c of taking advil PM one time yesterday. I offered to do more US to show them the heart, they do want that eventually, but not now. I spoke with Dr. Kovacs in OR to update him. He continue to manage pt. Jory Marie MD 12/01/2012 10:53 AM documented in this encounter H&P Notes Scanned Doc - 12/07/2012 11:06 AM CDT Kilo Kovacs MD - 12/01/2012 12:27 PM CDT Kayleigh is a 22 year old female, , currently at 31.4 weeks gestation. She reports that she had a headache yesterday located in the front behind the eyes. She has a history of migraines. She did not have any Tylenol PM so she took some Advil PM. She continued to have the headache through the night andshe had difficulty with sleeping. She decided to come to L&D due to the refractory headache. Shehas had movement and she had felt movement this morning about 5-6 am. She has not had any visual disturbances, no epigastric pain and no perihepatic pain. No ROM, No vaginal bleeding. When she presented, FHTs were not heard. I was in the OR and Dr. Vaca was asked by the nurses to scan her for FHT documentation. No cardiac activity was noted. Fetus was in vertex presentation. She desired to proceed with induction for delivery. Past Medical History Diagnosis Date ??? Headache around the eyes ??? history of elevated blood pressure patient reports that when she was in [place] she was given medications, but she stopped them due side effects Past Surgical History Procedure Laterality Date ??? Hx ovarian cyst removal 05/2012 No Known Allergies No current facility-administered medications on file prior to encounter. Current Outpatient Prescriptions on File Prior to Encounter Medication Sig Dispense Refill ??? vitamin-iron carbonyl-folic acid ( AD) 90-1-50 mg Oral Tab Take 1 Tab by mouth Once Daily. History Social History ??? Marital Status: Single Spouse Name: N/A Number of Children: 0 ??? Years of Education: N/A Occupational History ??? Not on file. Social History Main Topics ??? Smoking status: Former Smoker ??? Smokeless tobacco: Never Used ??? Alcohol Use: No ??? Drug Use: No ??? Sexually Active: Yes -- Male partner(s) Other Topics Concern ??? Not on file Social History Narrative ??? No narrative on file Family History Problem Relation Age of Onset ??? Cancer Mother casket coverer cancer of unknown origin to patient ??? Arthritis Maternal Grandmother ??? Diabetes Maternal Grandmother ROS: 10 point ROS is reviewed and is noted above in the HPI and in the PMH, otherwise, all negative. EXAM: BP 145/106 Pulse 90 Temp(Src) 97.7 ??F (36.5 ??C) Resp 16 Ht 5' 4 (1.626 m) Wt 112.492 kg(248 lb) BMI 42.55 kg/m2 General: WNWD female, teaful. HEENT: NC/AT, EOMI Neck: Supple, symetrical. No masses noted Heart: Regular Lungs: Clear Abdomen: Gravid, non-tender Vulva: No masses noted BUS: Normal Vagina: No masses Cervix: Closed internal os/thick/high Uterus: gravid, non-tender Adnexa: No masses Extremities: No clubbing, cyanosis or edema DTR: +3/4, no clonus LABS: Component Latest Ref Rng 11/15/2012 12/01/2012 PH URINE 4.5-8.0 6.0 SP.GRAVITY, UA 1.015-1.025 1.025 GLUCOSE, UA Negative mg/dL Negative KETONE, UA Negative mg/dL Negative BILIRUBIN, UA Negative Negative UROBILINOGEN, UA 0.2-1.0 E.U/dl 0.2 PROTEIN, UA Negative mg/dL Negative OCCULT BLOOD, UA Negative, Trace, TRACE-LYSED, TRACE-INTACT Negative WBC ESTERASE, UA Negative, Trace Negative NITRITE, UA Negative Negative WBC 4.3-10.8 K/uL 12.7 (H) RBC 4.20-5.40 M/uL 4.74 HEMOGLOBIN 12.0-16.0 gm/dL 13.9 HEMATOCRIT 36.0-48.0 % 40.1 MCV 80-100 fl 85 MCH 27-33 pg 29 MCHC 33-36 gm/dL 35 RDW 11.5-14.5 % 13.4 PLATELET COUNT 150-400 K/uL 268 MPV 6.5-12.0 10.5 PROTIME 9.5-12.5 sec. 10.2 INR 0.9-1.1 1.0 GROUP AND RH O Positive ANTIBODY SCREEN Negative PTT 24.0-33.0 sec. 28.8 AST (SGOT) 12-45 IU/L 18 ALT 12-78 IU/L 20 URIC ACID 2.6-7.2 mg/dL 4.3 ASSESSMENT: IUFD at 31 weeks gestation Headache Elevated blood pressure PLAN: The patient was given options to proceed with the induction or to go home. She desires to proceed with the induction. Cervidil will be placed. Monitor blood pressure. Likely chronic HTN, possible pre-eclampsia. Labs normal. Kilo Kovacs MD documented in this encounter Procedure Notes Oscar Tillman MD - 12/03/2012 10:07 AM CDT Kayleigh Stahl 1990 Date of Procedure: 12/03/2012 Procedure: Normal spontaneous vaginal delivery Transit Operations Supervisor: Oscar Tillman MD Preoperative Diagnosis: IUFD at 31 weeks gestation Postoperative Diagnosis: Same, now delivered Surgeon(s) and Assistants (if any): Oscar Tillman MD Nursing staff as listed Anesthesia: Epidural Complications: None Estimated Blood Loss: 100 mL Condition on discharge from DR: Satisfactory History and operative indications: Please see records, history and physical and progress orlabor notes for details of those findings, pertinent updates or other significant interval changes. I had discussed the plans for vaginal delivery, risks, complications, alternatives and anticipated course. Patient understood and desired to proceed with this plan. Procedure and findings: The patient progressed rapidly from 4 cm to delivery. The fetus precipitously delivered. No episiotomy. A nuchal cord was not present. The infant was a 3#4 male with Apgars of 0/0. The placenta and membranes were spontaneously delivered and there was an eccentric cord insertionand a small region where the central cotyledons appeared to be missing but a separate piece of placenta spontaneously expelled and was extracted and appeared to fill in this missing spot. Limited uterine exploration with a ring forceps was negative and the uterus contracted well and there was minimal bleeding. I suspect that all the secundines have delivered but will observe. Exam was negative for lac erations except for a small first degree perineal tear. Repair was not needed. EBL= 100 mL. Findingswere explained to patient, and family through automotive parts interpreter later and management plan reviewedas well as supportive care. Oscar Tillman MD documented in this encounter Consult Notes Gogo Frias MA, LP - 12/03/2012 8:13 PM CDT Reviewed chart in view of Technical Applications Scientist consult order. Note multiple visits by chaplains. Please advise if further services needed. Gogo Frias MA, MESFIN documented in this encounter Nursing Notes Bertha Coley RN - 12/05/2012 7:49 AM CDT Problem: - Discharge (Vaginal Delivery) Goal: Verbalizes/communicates normal physiologic changes after childbirth Outcome: Met this shift Fundus firm at 1 below the U with scant to small bleeding. Pt reports uterine cramping which is being treated with Ibuprofen and heat application; denies need for any stronger medication. Pt reported headache last night which resolved with Fioricet; has h/o chronic headaches. Voiding without difficulty. Slept well through the night with Ambien. Stacy Carlton RN - 12/03/2012 6:59 PM CDT Problem: - Discharge (Vaginal Delivery) Goal: Verbalizes/communicates normal physiologic changes after childbirth Outcome: Met this shift Pt with c/o knee pain after epidural wearing off--Dr Tillman notified and ibuprofen given with warm pack, pt instructed to call if pain does not improve with verbal understanding and agreement; able to ambulate well and void without difficulty; pt instructed to call for medication to assist with sleep tonight. SO present and supportive Stacy Carlton RN - 12/03/2012 12:16 PM CDT Problem: Admission - (Vaginal Delivery) Goal: Will have successful progression Labor Stages I - II Outcome: Completed Date Met: 12/03/12 0815: Dr Tillman evaluated pt at bedside with AROM for blood tinged fluid 0833: pt c/o feeling pressure in perineum 0834: SVE with head presenting 0835: per RN with DR Tillman returning to bedside for placental delivery, fragments removed completely per MD Pt and FOB offered time alone and held following delivery Family declines curriculum designer services to return for blessing or anabaptism (also offered own band sewer or president and chief commercial officer to come but declined as well); decision on mortuary not made yet, photos per Now I Lay Me Down To Sleep taken, placental chromosome studies requested per family but no tissue to be taken from ,SS consult ordered, refusal of autopsy, maternal labs drawn as well. xray to be done now Bertha Coley RN - 12/03/2012 6:21 AM CDT Problem: Admission - (Vaginal Delivery) Goal: Will have successful progression Labor Stages I - II Outcome: Met this shift Oxytocin started at 2000 and is currently infusing at 24 mu. Contractions every 1-3 minutes when they trace. Patient reported abdominal pressure and discomfort therefore her cervix was examined at 2310and found to be 2.5/50/-[address]. Dr Moreland updated on exam and would like to continue with Pitocin induction vs changing to Cytotec. Patient's pain relieved with pressing epidural button. Patient also had increased blood pressures at 150s/80s for a few hours overnight therefore we will be repeating labs thisam. Patient struggling with constant headache that has been managed with Ice, Fioricet, Vistaril, and Imitrex. Ice, Fioricet and Vistaril seem to work best for her. She is currently rating her headachea 2- 3/10. Reflexes normal with no other signs/symptoms of pre eclampsia. She was able to get a few hours of good sleep at which time her blood pressures were normal. She is afebrile. spanish interpreter was available throughout the night. Patient's significant other has been at bedside and very supportive. His main concern is to keep her relaxed/sedated after she is able to see baby. She would preferfor baby to be cleaned and dressed prior to seeing or holding. Then she would like baby to be next to her in bassinet, but not to hold. They have been asking appropriate questions and coping appropriately. Shea Mitchell RN - 12/01/2012 7:02 PM CDT Problem: Admission - (Vaginal Delivery) Goal: Will have successful progression Labor Stages I - II Outcome: Ongoing Cervidil placed at 1430 today, SVE noted to be FT/Thick/High. SL started in right forearm. Around 1700 pt started experiencing stronger ctx's/cramping. Also c/o headache. Pt tried to shower, which helped for a bit. But around 1800 was rithing in pain, order received for 1 time dose of morphine and PO visteril was given as well. Pt unable to rest/sleep, very anxious and upset over news received today. supportive at bedside. Eric Ramires able to visit early this afternoon, see notes. Sarai Alex notified as well, going to call back around 9pm. Chaplain Ding also available and willing to stopby later. No definitive decisions made at this time. Pt and still processing news. documented in this encounter OR Notes OR Anesthesia - Gogo Delatorre MD - 12/03/2012 8:32 PM CDT 2030 called by patients nurse because patient has complained of right knee pain after epidural worn off. She has been ambulating and voiding without difficulty. The Yoan was used for automotive parts interpreter. The patient notes sharp pain in her right knee that gets much worse with her leg flat or rotating the knee outward or inward. It seems that external rotation is the worst. The pain radiates into her anterior thigh when she moves her leg or knee. She denies any weakness or loss of sensation in her leg. Exam shows sensation intact. Strength is 5/5 throughout. She also denies back pain. The pain is concentrated at the knee joint and increases or decreases depending on the position of her knee. It does not follow a nerve distribution. We will plan to treat the pain with analgesics, cold packs and positioning. We will reevaluate if the pain does not improve. Gogo Delatorre MD OR Anesthesia - Adithya Tesfaye MD - 12/02/2012 3:10 AM CDT ANESTHESIOLOGY: LABOR EPIDURAL PLACEMENT Procedure start time: 229 Procedure stop time: 258 An epidural catheter is being placed for labor analgesia at the surgeon's request. The procedure, benefits, risks, and alternatives were explained to the patient and her via a spanish interpreter; understanding of the procedure and consent to proceed was given verbally. The automotive parts interpreter was present during the procedure. Procedure Note The patient was placed in the sitting position. The skin overlying the lumbar spine was prepped and draped in the usual sterile fashion. The skin was anesthetized with 1% lidocaine injected via a 22-gauge needle at the L3-4 interspace. An 18-gauge Tuohy needle was advanced slowly at the same interspace using a mid-line approach until a loss of resistance was achieved. A 20-gauge epidural catheter wasadvanced through the Tuohy needle without pain or parasthesias to a depth of 4 centimeters into the epidural space. The Tuohy needle was removed without difficulty. Aspiration of the catheter was negative for CSF and blood. A sterile dressing was applied over the catheter site. Test dose with 3 ml of 1.5% lidocaine with epinephrine 1:200,000 was negative. The catheter was dosed incrementally following negative aspiration with 8 ml of 0.25% bupivicaine and 100 mcg of fentanyl (4ml/4ml/2ml). Maternal vital signs and heart tones were stable throughout the procedure. Epidural monitored and supervised at necessary intervals. Assessment: There were no complications during epidural catheter placement. The patient is more comfortable following placement. Plan: A continuous infusion of 0.1% bupivicaine with fentanyl 2 mcg/ml has been started at 12 cc perhour. Labor epidural orders have been signed and the labor epidural protocol is being followed. Electronically Signed. Adithya Tesfaye MD 12/02/2012 3:10 AM OR Anesthesia - Adithya Tesfaye MD - 12/02/2012 3:08 AM CDT ANESTHESIOLOGY: PRE-PROCEDURE ASSESSMENT Kayleigh Stahl is a 22 y.o. in active labor. Seen with spanish interpreter present. Hx of demise with this pegnancy. 2Review of systems is negative for anesthetic complications. A complete chart review and pre-operative evaluation was performed. The patient is a non-smoker. Past Medical History Diagnosis Date ??? Headache around the eyes ??? history of elevated blood pressure patient reports that when she was in [place] she was given medications, but she stopped them due side effects Past Surgical History Procedure Laterality Date ??? Hx ovarian cyst removal 05/2012 PHYSICAL EXAM: BP 143/81 Pulse 104 Temp(Src) 98.2 ??F (36.8 ??C) Resp 20 Ht 5' 4 (1.626 m) Wt 112.492 kg(248 lb) BMI 42.55 kg/m2 HEART: Normal LUNGS: Normal AIRWAY CLASSIFICATION: Mallampati II NECK RANGE OF MOTION:normal flexion and extension THYRO-MENTAL DISTANCE: normal ASSESSMENT: ASA physical status score is III = Patient with acute systemic disease. PLAN: Type of Anesthesia: Regional - Epidural Anesthetic care--including the risks, benefits, alternatives and likely outcomes to the proposed plan--was discussed. All questions were answered and the patient accepts the outlined risks. Electronically Signed. Adithya Tesfaye MD 12/02/2012 3:08 AM documented in this encounter Plan of Treatment Scheduled Orders Name Type Priority Associated Diagnoses Order S chedule Drug of Abuse, Urine Lab Routine As need ed for 1 Occurrences ([facility]) starting 2012 Scheduled Referrals Name Type Priority Associated Diagnoses Order S chedule Follow Up Follow Up Routine Ordered: 2012 Follow Up Follow Up Routine Ordered: 2012 documented as of this encounter Procedures Procedure Name Priority Date/Time Associated Comments Diagnosis XR CHEST & ABDOMEN PEDS Routine 12/03/2012 2:00 R esults for this PORT PM CDT procedure are i n the results section. CHROMOSOME ANALYSIS, Routine 12/03/2012 1:30 Resu lts for this TISSUE (POC) PM CDT procedure are i n the results section. HBA1C / EAG Routine 12/03/2012 10:28 Results for this AM CDT procedure are i n the results section. THYROID STIMULATING Routine 12/03/2012 10:28 Resu lts for this HORMONE AM CDT procedure are i n the results section. BETA-2 GLYCOPROTEIN 1 Routine 12/03/2012 10:28 Re sults for this ANTIBODIES IGG/IGM AM CDT procedure are in the results section. PARVOVIRUS (B19) IGG AND Routine 12/03/2012 10:28 Results for this IGM AM CDT procedure are i n the results section. ANTI-CARDIOLIPIN Routine 12/03/2012 10:28 Results for this (PHOSPHOLIPID) AM CDT procedure are in ANTIBODIES IGG/IGM the resul ts section. NM LUPUS PROFILE (USE Routine 12/03/2012 10:28 Re sults for this [id number] ANTIPHOSPHOLIPID AM CDT pro cedure are in SYNDROME (LUPUS) PANEL) the results section. KLEIHAUER BETKE Routine 12/03/2012 10:28 Results for this AM CDT procedure are i n the results section. SURGICAL PATHOLOGY Routine 12/03/2012 9:00 Result s for this AM CDT procedure are i n the results section. URIC ACID, SERUM Routine 12/03/2012 7:08 Results for this AM CDT procedure are i n the results section. AST (SGOT) Routine 12/03/2012 7:08 Results for this AM CDT procedure are i n the results section. CREATININE EGFR Routine 12/03/2012 7:08 Results f or this AM CDT procedure are i n the results section. ALT (SGPT) Routine 12/03/2012 7:08 Results for this AM CDT procedure are i n the results section. CBC Routine 12/03/2012 7:08 Results for this (HGB,HCT,WBC,RBC,PLATELE AM CDT pro cedure are in T) the results section. PROTIME/INR Routine 12/03/2012 7:08 Results for this AM CDT procedure are i n the results section. PARTIAL THROMBOPLASTIN Routine 12/03/2012 7:08 Re sults for this TIME AM CDT procedure are i n the results section. DRUG OF ABUSE, UR W/ Routine 12/01/2012 1:00 Resu lts for this CONFIRMATION ([facility]) PM CDT procedure are in the results section. TYPE AND SCREEN Routine 12/01/2012 11:19 Results for this AM CDT procedure are i n the results section. URIC ACID, SERUM Routine 12/01/2012 11:19 Results for this AM CDT procedure are i n the results section. AST (SGOT) Routine 12/01/2012 11:19 Results for this AM CDT procedure are i n the results section. ALT (SGPT) Routine 12/01/2012 11:19 Results for this AM CDT procedure are i n the results section. CBC Routine 12/01/2012 11:19 Results for this (HGB,HCT,WBC,RBC,PLATELE AM CDT pro cedure are in T) the results section. PROTIME/INR Routine 12/01/2012 11:19 Results for this AM CDT procedure are i n the results section. PARTIAL THROMBOPLASTIN Routine 12/01/2012 11:19 R esults for this TIME AM CDT procedure are i n the results section. documented in this encounter Results XR CHEST & ABDOMEN PEDS PORT (12/03/2012 2:00 PM CDT) Anatomical Region Laterality Modality Chest, ABD/Pelvis Computed Radiography Specimen (Source) Anatomical Collection Method Collection Time Re ceived Time Location / / Volume Laterality 12/06/2012 7:53 AM CDT Impressions 12/06/2012 4:19 PM CDT IMPRESSION: No skeletal abnormality. Narrative 12/06/2012 4:19 PM CDT EXAMINATION: XR CHEST & ABDOMEN PEDS PORT ??12/03/2012 1:43 PM CLINICAL DATA: [place]. ??Evaluate for dwarfism, short limbs or skeletal dysplasia. COMPARISON: None FINDINGS: Portable AP view of the skeleton is reviewed. No evidence of limb shortening nor curva ture. ??No flattening of the vertebral bodies. ??The thorax appears normal in dimension. ??There are 12 thoracic ribs. ??There are 5 digits on each hand without g ross abnormality. ??The feet are not ful ly evaluated. ??The scapulae are present bilaterally. Procedure Note Eileen Barraza MD - 12/06/2012Forma tting of this note might be different from the original. EXAMINATION: XR CHEST & ABDOMEN PEDS POR T 12/03/2012 1:43 PM CLINICAL DATA: [place]. Evaluate for d warfism, short limbs or skeletal dysplasia. COMPARISON: None FINDINGS: Portable AP view of the skeleton is reviewed. No evidence of limb shortening nor curva ture. No flattening of the vertebral bodies. The thorax appears normal in dimension. There are 12 thoracic ribs. There are 5 digits on each hand without gross abnormality. The feet are not fully evaluated. The s capulae are present bilaterally. IMPRESSION: No skeletal abnormality. Oscar Tillman MD XRAY ORDERABLE CHROMOSOMES, TISSUE-POC (12/03/2012 1:30 PM CDT) [facility] Method Time Signature CHROMOSOME SEE COMMENTS 12/26/2012 [facility], 10:59 AM LABORATORIES TISSUE (POC) CDT Comment: Test ? Result ? Flag ??Unit ??RefValue Chromosome, Autopsy/Concep/Stillbirth ??Specimen ? S EE COMMENTS Products of Conception ??Specimen ID ?[id number] ?Source ? Placenta ?Order Date ? 06 Dec 2012 07:16 ??Reason For Referral ?SEE CO MMENTS r/o chromosome abnormality ??Method ? Fibroblast Culture ??Banding Methods ?SEE COMMENTS Method ?Analyzed ??Counted ??K aryotyped ??Band Level ??-------- ??------- ??---- ------ ?? GTL ? 5 ? 25 ? 2 Total ? 5 ? 25 ? 2 ? 400 ??Results ? 46,XY ?Interpretation ? SEE COMMENTS No chromosome abnormality was apparent i n cells cultured from placenta. ??Paint Mixer Hand ? Ethan Milligan DO ??Report Date ?26 Dec 2012 10:59 Test Performed by: [facility] [address] [place] [address] R D Manager: Wojciech padilla III, M.D. Specimen (Source) Anatomical Collection Method Collection Time Re ceived Time Location / / Volume Laterality Products of 12/03/2012 1:30 12/03/2012 5 :03 conception tissue PM CDT PM CDT specimen (specimen) Oscar Tillman MD SEND OUT ORDERABLE Performing Organization Address City/State/ZIP Code Phon e Number [facility] [address] [place] [address] Hgb A1c (Glycosolated Hgb) (12/03/2012 10:28 AM CDT) P athologist Signature HBA1C 5.2 4.8 - 5.6 12/03/2012 [facility] (GLYCOSOLATED % 10:44 AM CDT LABORATORY HGB) Specimen Anatomical Collection Method / Collection Time Recei uli Time (Source) Location / Volume Laterality Blood specimen Venipuncture / 12/03/2012 10:28 013 (specimen) Unknown AM CDT 10:32 AM CDT Oscar Tillman MD CHEMISTRY ORDERABLE Performing Organization Address City/State/ZIP Code Phon e Number [facility] [address] [place], [place] [id number] [facility] Parvovirus B19 IgG & IgM (12/03/2012 10:28 AM CDT) Analysis Performed At Patho logis Time Signature Parvovirus B19 0.21 <0.90 12/06/2012 [facility] Ab, IgG index 3:56 PM CDT LABORATORIES Comment: Negative Parvovirus B19 Ab, 0.07 <0.90 index 12/06/2012 3:56 PM [facility] IgM CDT LABORATORIES Comment: Negative Parvovirus B19 Ab No antibody 12/06/2012 3:56 PM [facility] Interpretation detected. CDT LABORATORIES Comment: Test Performed by: [facility] [address] [place] [address] R D Manager: Wojciech padilla III, M.D. Specimen Anatomical Collection Method / Collection Time Recei uli Time (Source) Location / Volume Laterality Blood specimen Venipuncture / 12/03/2012 10:28 013 (specimen) Unknown AM CDT 10:32 AM CDT Oscar Tillman MD SEND OUT ORDERABLE Performing Organization Address City/State/ZIP Code Phon e Number [facility] [address] [place] [address] Beta - 2 Glycoprotein 1 Igg / Igm ATBY (12/03/2012 10:28 AM CDT) Analysis Performed At Patho [facility] Time Signature BETA-2 0.9 <7.0 U/mL 12/06/2012 [facility] GLYCOPROTEIN I 1:06 PM CDT LABORATORY IGG BETA-2 <0.9 <7.0 U/mL 12/06/2012 [facility] GLYCOPROTEIN I 1:06 PM CDT LABORATORY IGM Specimen Anatomical Collection Method / Collection Time Recei uli Time (Source) Location / Volume Laterality Blood specimen Venipuncture / 12/03/2012 10:28 013 (specimen) Unknown AM CDT 10:32 AM CDT Narrative [facility] - 12/06/2012 1 :06 PM CDT B-2 Glycoprotein IgG/IgM Antibodies Interpretation ??<7 - Negative 7-10 - Equivocal >10 - Positive Oscar Tillman MD CHEMISTRY ORDERABLE Performing Organization Address City/State/ZIP Code Phon e Number [place] [address] [place] [address] LABORATORY [place] [address] [place] [address] Phospholipid Antibody Igg / Igm (12/03/2012 10:28 AM CDT) Analysis Performed At Patho logist Time Signature PHOSPHOLIPID IGM <0.8 <10.0 U/mL 12/06/2012 [facility] IAL 1:05 PM CDT LABORATORY PHOSPHOLIPID IGG 1.6 <10.0 U/mL 12/06/2012 [facility] IAL 1:05 PM CDT LABORATORY Specimen Anatomical Collection Method / Collection Time Recei uli Time (Source) Location / Volume Laterality Blood specimen Venipuncture / 12/03/2012 10:28 013 (specimen) Unknown AM CDT 10:32 AM CDT Narrative [facility] - 12/06/2012 1 :05 PM CDT Phospholipid IgG/IgM Antibodies Interpretation ??<10 U/mL - Negative 10-40 U/mL - Weakly Positive ??>40 U/mL - Positive Oscar Tillman MD CHEMISTRY ORDERABLE Performing Organization Address City/State/ZIP Code Phon e Number [address] [place] [address] [place] [address] (ABNORMAL) NM Lupus Profile (12/03/2012 10:28 AM CDT) Component Value Ref Test Analysis Performed At [facility] gist Range Method Time Signature PROTIME 10.0 10.0 - 12/09/2012 [place] 13.0 11:30 AM [facility] sec[facility] CDT LABORATORY INR 1.0 1.0 - 12/09/2012 [place] 1.2 11:30 AM [facility] CDT LABORATORY PTT 25.0 24.0 - 12/09/2012 [place] 33.0 11:30 AM [facility] sec. CDT LABORATORY THROMBIN TIME 10.6 (L) 13.0 - 12/09/2012 [place] 17.0 11:30 AM [facility] sec. CDT LABORATORY Lupus (LA) 1.15 (H) 0.00-<1 12/09/2012 [place] .10 11:30 AM [facility] CDT LABORATORY SILICA CLOTTING 0.94 0.00 - 12/09/2012 [place] TIME 1.15 11:30 [facility] PATHOLOGIST COAG These results do 12/09/2012 [facility] not identify 11:30 AM [facility] antiphospholipid CDT LABORATORY syndrome. PT, PTT, and TT are not elevated, and beta-2 glycoprotein and phospholipid antibody studies (reported separately) are negative. DRVVT is minimally elevated, and because some lupus anticoagulants do not prolong the PTT but may prolong the DRVVT, repeat testing may be performed at a later date if clinical concern persists. Saul Adkins MD Specimen Anatomical Collection Method / Collection Time Recei uli Time (Source) Location / Volume Laterality Blood specimen Venipuncture / 12/03/2012 10:28 013 (specimen) Unknown AM CDT 10:32 AM CDT Oscar Tillman MD COAGULATION ORDERABLE Performing Organization Address [facility] Phon e Number [facility] [address] [place] [address] [phone] LABORATORY [facility] [address] [place], [place] [address] Thyroid Stimulating Hormone (TSH) (12/03/2012 10:28 AM CDT) athologist Signature TSH 1.33 0.45 - 4.50 12/03/2012 [facility] mIU/mL 11:09 AM CDT LABORATORY Specimen Anatomical Collection Method / Collection Time Recei uli Time (Source) Location / Volume Laterality Blood specimen Venipuncture / 12/03/2012 10:28 013 (specimen) Unknown AM CDT 10:32 AM CDT Oscar Tillman MD CHEMISTRY ORDERABLE Performing Organization Address City/[facility]/ZIP [facility] Phon e Number [facility] [address] [place] [address] [facility] Salvador Abdalla (12/03/2012 10:28 AM CDT) athologist Signature % CELLS 0.0 % 12/03/2012 [facility] 1:49 PM CDT LABORATORY BLOOD LOSS 0.0 mL 12/03/2012 [facility] CALC. 1:49 PM CDT LABORATORY Specimen Anatomical Collection Method / Collection Time Recei uli Time (Source) Location / Volume Laterality Blood specimen Venipuncture / 12/03/2012 10:28 013 (specimen) Unknown AM CDT 10:32 AM CDT Oscar Tillman MD HEMATOLOGY ORDERABLE Performing Organization Address City/State/ZIP Code Phon e Number [address] [address] [address] [address] Surgical Pathology (12/03/2012 9:00 AM CDT) athologist Signature SURGICAL 12/08/2012 [facility] PATH[facility] PATHOLOGY 3:47 PM CDT Comment: [facility] Surgical Pathology Laboratory [address] [place] [address] ?? [phone] Fax: ?? SURGICAL PATHOLOGY REPORT Patient Name: KAYLEIGH MORAN No: [id number] Room No: Age: ??22 Sex: F Taken: 3 Med. Rec. #: [id number] : 1990 Received: 12/07/2012 Physic hunter(s): Kilo Kovacs MD Service: Obstetrics Reported: 12/08/2012 Clinical History 22-year-old female, gestational age 31.5 weeks, parity 1, Apgars 0/0. Reason for exam ??stillbirth. Gross Placenta: ??A round placenta measuring 1 2.5 x 11 x 3 cm. ??The umbilical cord is received nearly avulse d from the specimen, however, it appears to have inserted 1 c m from the nearest disc edge and measures 27 cm in length with n o true knots. ??The placenta, umbilical cord and membranes a ppear dusky, and the membranes are thickened. ??On the matern al surface, there is a 7.5 x 4.5 x 2.5 cm defect. ??After the umbil ical cord and membranes are removed, the placenta weighs 205 gra ms. ??Also received with the specimen is a 49 gram portion of wha t appears to be clot, measuring 9 x 4 x 3 cm. ??This portion o f clot is shaped similarly to the defect at the maternal surface of the placenta. ??Also received are multiple fragments of dusky membranes and clot measuring 8 x 7 x 1.5 cm in aggregate. ? ?The umbilical cord is sectioned revealing a three-vessel cord. ??The placenta is serially sectioned demonstrating six, so ft, yellow-pérez, hemorrhagic nodules located at the mater nal surface of the specimen and in between the and ma ternal surfaces of the specimen, at both the center and edge of the placenta, ranging in size from 0.6 to 3.5 cm. ??These nodules comprise approximately 20% of the specimen. RS-6. The specimen is reviewed with Dr. Sarai Delatorre. Summary of cassettes: 1 umbi lical cord and membrane roll; 2 clot received separate from plac enta; 3 hemorrhagic nodule; 4 hemorrhagic nodule with area o f disruption on maternal surface of placenta; 5 area of disruptio n; 6 placenta full thickness. (RL) MICROSCOPIC Performed. Conclusion Placenta, delivery ??31.5 week premature placenta with focally necrotic three-vessel umbilical cord and multifocal hemorrhagic infarction involving approximately 20% o f the peripheral and central aspects of the placenta. CPT CODES A: 37770 ? Electronically Signed Out kp Sarai Delatorre MD ?? Specimen Anatomical Collection Method Collection Time Receive d Time (Source) Location / / Volume Laterality Specimen 12/03/2012 9:00 AM 3 9:13 (specimen) CDT AM CDT Juliana Moreland MD PATHOLOGY/CYTOLOGY ORDERABLE Performing Organization Address City/State/ZIP Code Phon e Number [facility] PATHOLOGY Creatinine / eGFR (12/03/2012 7:08 AM CDT) athologist Signature CREATININE 0.74 0.60 - 12/03/2012 [facility] 1.30 mg/dL 7:49 AM CDT LABORATORY EST GFR >60 >60 mL/min 12/03/2012 [facility] (CKD-EPI) 7:49 AM CDT LABORATORY EST GFR IF >60 >60 mL/min 12/03/2012 [facility] AM 7:49 AM CDT LABORATORY Specimen Anatomical Collection Method / Collection Time Recei uli Time (Source) Location / Volume Laterality Blood specimen Venipuncture / 12/03/2012 7:08 12/04/19 13 7:13 (specimen) Unknown AM CDT AM CDT Oscar Tillman MD CHEMISTRY ORDERABLE Performing Organization Address City/[facility]/ZIP [facility] Phon e Number [facility] [address] [place] [address] [facility] Uric Acid, Serum (12/03/2012 7:08 AM CDT)Only the most recent of2 resultswithin the time period is included. athologist Signature URIC ACID 3.7 2.6 - 7.2 12/03/2012 [facility] mg/dL 7:31 AM CDT LABORATORY Specimen Anatomical Collection Method / Collection Time Recei uli Time (Source) Location / Volume Laterality Blood specimen Venipuncture / 12/03/2012 7:08 12/04/19 13 7:13 (specimen) Unknown AM CDT AM CDT Juliana Moreland MD CHEMISTRY ORDERABLE Performing Organization Address City/[facility]/ZIP Code Phon e Number [facility] [address] [place] [address] [facility] ALT (12/03/2012 7:08 AM CDT)Only the most recent of2 resultswithin the time period is included. P athologist Signature ALT 16 12 - 78 12/03/2012 [facility] IU/L 7:31 AM CDT LABORATORY Specimen Anatomical Collection Method / Collection Time Recei uli Time (Source) Location / Volume Laterality Blood specimen Venipuncture / 12/03/2012 7:08 12/04/19 13 7:13 (specimen) Unknown AM CDT AM CDT Juliana Moreland MD CHEMISTRY ORDERABLE Performing Organization Address [facility] Phon e [facility] LABORATORY [address] [place] [address] [facility] AST (12/03/2012 7:08 AM CDT)Only the most recent of2 resultswithin the time period is included. P athologist Signature AST (SGOT) 15 12 - 45 12/03/2012 [facility] IU/L 7:31 AM CDT LABORATORY Specimen Anatomical Collection Method / Collection Time Recei uli Time (Source) Location / Volume Laterality Blood specimen Venipuncture / 12/03/2012 7:08 12/04/19 13 7:13 (specimen) Unknown AM CDT AM CDT Juliana Moreland MD CHEMISTRY ORDERABLE Performing Organization Address [facility] e Number [facility] [address] [place] [address] [facility] Partial Thromboplastin Time (12/03/2012 7:08 AM CDT)Only the most recent of2 resultswithin the time period is included. P athologist Signature PTT 27.9 24.0 - 33.0 12/03/2012 [facility] sec. 7:31 AM CDT LABORATORY Specimen Anatomical Collection Method / Collection Time Recei uli Time (Source) Location / Volume Laterality Blood specimen Venipuncture / 12/03/2012 7:08 12/04/19 13 7:13 (specimen) Unknown AM CDT AM CDT Juliana Moreland MD COAGULATION ORDERABLE Performing Organization Address City/[facility] Phon e Number [facility] [address] [place] [address] [facility] Protime / INR (12/03/2012 7:08 AM CDT)Only the most recent of2 resultswithin the time period is included. P athologist Signature PROTIME 11.3 9.5 - 12.5 12/03/2012 [facility] sec. 7:29 AM CDT LABORATORY INR 1.1 0.9 - 1.1 12/03/2012 [facility] 7:29 AM CDT LABORATORY Specimen Anatomical Collection Method / Collection Time Recei uli Time (Source) Location / Volume Laterality Blood specimen Venipuncture / 12/03/2012 7:08 12/04/19 13 7:13 (specimen) Unknown AM CDT AM CDT Juliana Moreland MD COAGULATION ORDERABLE Performing Organization Address [facility] Phon e Number [facility] [address] [place] [address] [facility] (ABNORMAL) CBC (Hgb,Hct,WBC,RBC,Platelet) (12/03/2012 7:08 AM CDT)Only the most recent of2 resultswithin the time period is included. Patholo gist Method Time Signature WBC 13.3 (H) 4.3 - 10.8 12/03/2012 [facility] K/uL 7:20 AM CDT LABORATORY RBC 4.63 4.20 - 12/03/2012 [facility] 5.40 M/uL 7:20 AM CDT LABORATORY HEMOGLOBIN 13.5 12.0 - 12/03/2012 [facility] 16.0 gm/dL 7:20 AM CDT LABORATORY HEMATOCRIT 40.1 36.0 - 12/03/2012 [facility] 48.0 % 7:20 AM CDT LABORATORY MCV 87 80 - 100 12/03/2012 [facility] fl 7:20 AM CDT LABORATORY MCH 29 27 - 33 pg 12/03/2012 [facility] 7:20 AM CDT LABORATORY MCHC 34 33 - 36 12/03/2012 [facility] gm/dL 7:20 AM CDT LABORATORY RDW 13.6 11.5 - 12/03/2012 [facility] 14.5 % 7:20 AM CDT LABORATORY PLATELET COUNT 246 150 - 400 12/03/2012 [facility] K/uL 7:20 AM CDT LABORATORY MPV 10 6.5 - 12.0 12/03/2012 [facility] 7:20 AM CDT LABORATORY Specimen Anatomical Collection Method / Collection Time Recei uli Time (Source) Location / Volume Laterality Blood specimen Venipuncture / 12/03/2012 7:08 12/04/19 13 7:13 (specimen) Unknown AM CDT AM CDT Juliana Moreland MD HEMATOLOGY ORDERABLE Performing Organization Address City/[facility]/ZIP Code Phon e Number [facility] [address] [place] [address] [facility] [phone] Drug of Abuse, Ur w/ Confirmation ([facility]) (12/01/2012 1:00 PM CDT) [facility] Method Time Signature AMPHETAMINES Negative Negative 12/01/2012 [facility] 1:25 PM CDT LABORATORY BARBITURATES Negative Negative 12/01/2012 [facility] 1:25 PM CDT LABORATORY BENZODIAZEPINES Negative Negative 12/01/2012 [facility] 1:25 PM CDT LABORATORY COCAINE METAB Negative Negative 12/01/2012 [facility] 1:25 PM CDT LABORATORY PCP Negative Negative 12/01/2012 [facility] 1:25 PM CDT LABORATORY THC METABOLITES Negative Negative 12/01/2012 [facility] 1:25 PM CDT LABORATORY OPIATES Negative Negative 12/01/2012 [facility] 1:25 PM CDT LABORATORY METHADONE Negative Negative 12/01/2012 [facility] 1:25 PM CDT LABORATORY Specimen Anatomical Collection Method Collection Time Receive d Time (Source) Location / / Volume Laterality Urine specimen URINE SPECIMEN / Collection / 12/01/2012 1:00 PM 1:16 (specimen) Unknown Unknown CDT PM CDT Kilo Kovacs MD CHEMISTRY ORDERABLE Performing Organization Address City/[facility]/ZIP [facility] Phon e Number [facility] [address] [place] [address] [facility] [phone] Type & Screen (12/01/2012 11:19 AM CDT) [facility] Method Time Signature GROUP AND RH O Positive 12/01/2012 [facility] 12:08 PM CDT ANTIBODY Negative 12/01/2012 [facility] SCREEN 12:08 PM CDT Specimen Anatomical Collection Method / Collection Time Recei uli Time (Source) Location / Volume Laterality Blood specimen Venipuncture / 12/01/2012 11:19 013 (specimen) Unknown AM CDT 11:25 AM CDT Kilo Kovacs MD BLOOD BANK ORDERABLE Performing Organization Address City/State/ZIP Code Phon e Number [facility] [place], [place] [phone] [facility] documented in this encounter Visit Diagnoses Diagnosis IUFD (intrauterine ) - Primar y Unspecified condition originating in the period Migraine headache Migraine, unspecified, without mention o f intractable migraine without mention of status migrainosus Hypertension in Transient hypertension of , uns pecified as to episode of care documented in this encounter Administered Medications Inactive Administered Medications - up to 3 most recent administrations Medication Order MAR Action Action Date Dose Rate Site zsuoiavsphodp-ewvncvlt-ahmmprwak Given 12/05/2012 7:57 AM CDT 1 tablet l (FIORICET/ESGIC) 50 MG-325 MG-40 MG tablet 1-2 Tab 1-2 tablet, oral, EVERY 4 HOURS NEEDED, Starting on Maisha 12/01/12 at 2339, Until 12/05/12 at 1857, headache Given 12/05/2012 1:03 AM CDT 2 tablets Given 12/04/2012 10:05 AM CDT 1 tablet dinoprostone (CERVIDIL) vaginal insert 1 0 mg Given 12/01/2012 2:08 PM CDT 10 mg 10 mg, Vaginal, ONCE, 1 dose, On Maisha 12/01/12 at 1330 fentaNYL (conc: 2 New Bag 12/03/2012 7:33 AM CDT 12 mL/hr 12 mL/ hr mcg/mL)/bupivacaine 0.1% in NS 100 mL EPIDURAL infusion at 12 mL/hr, Epidural, CONTINUOUS, Starting on 12/02/12 at 0315, Until 12/03/12 at 0852 New Bag 12/03/2012 12:45 AM CDT 12 mL/hr 12 mL/hr New Bag 12/02/2012 6:11 PM CDT 12 mL/hr 12 mL/hr fentaNYL (SUBLIMAZE) injection 50-100 mc g Given 12/01/2012 10:19 PM CDT 100 mcg 50-100 mcg, Intravenous, EVERY 1 HOUR NEEDED, Starting on Maisha 12/01/12 at 1510, Until Wed12/02/12 at 0314, pain management in labor PXEMRISP-QTAYIMYLZTU-KFDW (PF) 2 MCG/ML-0.1 % Given 3:12 AM CDT 100 mL EPIDURAL 1 dose, Starting on Wed12/02/12 at 0155, Until Wed12/02/12 at 0312 hydrOXYzine pamoate (VISTARIL) capsule 5 0 mg Given 12/02/2012 3:10 PM CDT 50 mg 50 mg, oral, EVERY 6 HOURS NEEDED, Starting on Wed12/02/12 at 1253, Until 12/05/12 at 1857, pain hydrOXYzine pamoate (VISTARIL) capsule 50-100 Given 12:50 AM CDT 50 mg mg 50-100 mg, oral, EVERY 4 HOURS NEEDED, 4 doses, Starting on Maisha 12/01/12 at 1510, Until 12/03/12 at 0852, pain Given 12/02/2012 8:41 PM CDT 100 mg Given 12/01/2012 6:23 PM CDT 100 mg ibuprofen (MOTRIN) tablet 600 mg Given 12/05/2012 7:48 AM CDT 600 mg 600 mg, oral, EVERY 6 HOURS (NS), First dose on 12/03/12 at 1000, Until Discontinued Given 12/05/2012 1:00 AM CDT 600 mg Given 12/04/2012 6:31 PM CDT 600 mg lactated ringers (LR) IV New Bag 12/02/2012 4:35 AM CDT 1,000 mL 1000 mL/hr infusion 1,000 mL at 1,000 mL/hr, Intravenous, ONCE, 1 dose, On Wed12/02/12 at 0315 lactated ringers (LR) IV infusion New Bag 12/02/2012 3:10 PM CDT 150 mL/hr at 150 mL/hr, Intravenous, CONTINUOUS, Starting on Wed12/02/12 at 1515, Until Wed12/05/12 at 1857 misoprostol (CYTOTEC) tablet 25 mcg Given 12/02/2012 1:18 PM CDT 25 mcg 25 mcg, Vaginal, EVERY 4 HOURS NEEDED, 6 doses, Starting on Wed12/01/12 at 1316, Until 12/03/12 at 0755, for cervical ripening Given 12/02/2012 8:48 AM CDT 25 mcg Given 12/02/2012 4:26 AM CDT 25 mcg MORPHINE (PF) 10 MG/ML IV CARTRIDGE 1 dose, Starting on Wed12/01/12 at 1823, Until 11/04 at 1823 MORphine (PF) injection Given 12/01/2012 6:23 PM CDT 10 mg Right Upper Gluteal (conc: 10 mg/mL) 10 mg 10 mg, IntraMUSCULAR, ONCE, 1 dose, On Wed12/01/12 at 1830 ondansetron (ZOFRAN) injection (conc: 2 mg/mL) Given 0 12/02/2012 8:45 AM CDT 4 mg 4 mg 4 mg, Intravenous, EVERY 8 HOURS NEEDED, Starting on Wed12/02/12 at 0312, Until Wed12/03/12 at 0852, nausea & vomiting ondansetron (ZOFRAN) injection (conc: 2 mg/mL) Given 0 12/01/2012 9:23 PM CDT 8 mg 8 mg 8 mg, Intravenous, EVERY 12 HOURS NEEDED, Starting on Wed12/01/12 at 1510, Until Wed12/02/12 at 0314, nausea oxyCODONE-acetaminophen (PERCOCET) 5 mg-325 Given 11/04 4:04 PM CDT 1 tablet mg tablet 1-2 Tab 1-2 tablet, oral, EVERY 4 HOURS NEEDED, Starting on Maisha 12/01/12 at 1300, Until Wed12/02/12 at 0314, pain, headache Given 12/01/2012 1:17 PM CDT 1 tablet oxyCODONE-acetaminophen (PERCOCET) 5 mg-325 Given 04/2012 6:49 AM CDT 1 tablet mg tablet 1-2 Tab 1-2 tablet, oral, EVERY 4 HOURS NEEDED, Starting on 12/03/12 at 0955, Until 12/05/12 at 1857, pain Given 12/04/2012 2:26 AM CDT 1 tablet Given 12/03/2012 10:12 PM CDT 1 tablet OXYTOCIN 20 UNIT/1000 ML IN 0.9 % SODIUM CHLORIDE IV 1 dose, Starting on 12/03/12 at 0914, Until Sat 11/05 04/17 at 0945 oxytocin 20 units (PITOCIN) in sodium Given 12/03/2012 9:45 AM C DT 20 Units chloride 0.9% 1000 mL 2-24 helio-units/min (rounded to 6-72 mL/hr), Intravenous, CONTINUOUS, Starting on Maisha 12/01/12 at 1330, Until 12/03/12 at 0853 New Bag 12/02/2012 8:00 PM CDT 2 helio-units/min 6 mL/hr senna (SENOKOT) tablet 1-2 Tab Given 12/03/2012 10:12 PM CDT 1 tablet 1-2 tablet, oral, AT BEDTIME, First dose on 12/03/12 at 2200, Until Discontinued sodium chloride 0.65% (OCEAN) nasal Given 12/04/2012 1:12 PM CDT 2 sprays solution 1-2 [place] 1-2 spray, Each Nostril, EVERY 2 HOURS NEEDED, Starting on 12/04/12 at 1014, Until 12/05/12 at 1857, nasal congestion SUMAtriptan succinate (IMITREX) tablet 5 0 mg Given 12/02/2012 7:55 PM CDT 50 mg 50 mg, oral, TWICE A DAY NEEDED, Starting on 12/02/12 at 1251, Until 12/05/12 at 1857, migraine headache zolpidem (AMBIEN) tablet 5 mg Given 12/04/2012 9:25 PM CDT 5 mg 5 mg, oral, AT BEDTIME NEEDED, Starting on 12/03/12 at 2200, Until 12/05/12 at 1857, sleep, Dose Recommendations for Insomnia, Short-term treatment: Men: 5 or 10 mg ORALLY immediately before bedtime Women: 5 mg ORALLY immediately before bedtime Elderly ( >= 65): 5 mg ORALLY immediately before bedtime Debilitated Patients: 5 mg ORALLY immediately before bedtime Given 12/03/2012 10:12 PM CDT 5 mg documented in this encounter Active and Recently Administered Medications Times are shown in CDT. Scheduled Medication Order 12/03/2012 12/04/2012 12/05/2012 ibuprofen (MOTRIN) tablet 600 mg (CANCELED) 1000 (Not Given - Provider: Stacy Carlton RN - Reason: Clinically appropriate (comment))1215 (Given - Provider: Stacy Carlton RN)1845 (Given - Provider: Stacy Carlton RN) 0120 (Given - Provider: Bertha Coley RN)0649 (Given - Provider: Bertha Coley RN)1254 (Given - Provider: Stacy Carlton RN)1831 (Given - Provider: Stacy Carlton RN) 0100 (Given - Provider: Bertha travis RN)0748 (Given - Provider: Ramona Reis RN) 600 mg, Oral, EVERY 6 HOURS (NS), First dose on 12/03/12 at 1000, Until Discontinued, This medication has a Blackbox Warning. Click the formulary reference link for more information. 2200 (Not Given - Provider: Bertha Coley RN - Reason: Clinically appropriate (comment) - Comment: last given at 1845- too soon) senna (SENOKOT) tablet 1-2 Tab (CANCELED) 2212 (Given - Provider: Bertha Coley RN) 2200 (Declined - Provider: Bertha Coley RN) 1-2 Tab, Oral, AT BEDTIME, First dose on 12/03/12 at 2200, Until Discontinued Continuous Medication Order 12/03/2012 12/04/2012 12/05/2012 fentaNYL (conc: 2 mcg/mL)/bupivacaine 0. 1% in NS 100 mL EPIDURAL infusion (CANCELED) 0045 (New Bag - Provider: Bertha arroyo RN)0733 (New Bag - Provider: Stacy Carlton RN) 12 mL/hr, Epidural, CONTINUOUS, Starting Wed12/02/12 at 0315, Until 12/03/12 at 0852, PATIENT DEMAND DOSE: 10 mL DEMAND DOSE LOCKOUT TIME: 20 minutes. Maximum milliliters allowed per hour 32. The [place] se may stop the infusion after delivery; the epidural catheter may then be removed. Notify Anesthesiologist IF HEPARIN THERAPY OR A DISORDER OF COAGULATION EXISTS; DO NOT REMOVE EPIDURAL CATHETER. Notif y Anesthesiologist if catheter is not intact upon removal. oxytocin 20 units (PITOCIN) in sodium chloride 0.9% 10 00 mL (CANCELED) 0945 (Given - Provider: Stacy Carlton RN) 2-24 helio-units/min = 6-72 mL/hr, at 6- 72 mL/hr, Intravenous, CONTINUOUS, Starting Maisha 12/01/12 at 1330, Until 12/03/12 at 0853 PRN Medication Order 12/03/2012 12/04/2012 12/05/2012 vsnqnwxwxznyj-nqdybdtj-ueqptymniq ([place] CET/ESGIC) 50 MG-325 MG-40 MG tablet 1-2 Tab 0006 (Given - Provider: Bertha travis RN)0942 (Given - Provider: Stacy Carlton, FAYE) 1005 (Given - Provider: Stacy Carlton RN) 0103 (Give n - Provider: Bertha Coley RN)0757 (Given - Provider: Ramona Reis RN) 1-2 Tab, Oral, EVERY 4 HOURS NEEDED, Starting Maisha 12/01/12 at 2339, Until 12/05/12 at 1857, headache hydrOXYzine pamoate (VISTARIL) capsule 50-100 mg (CANC ELED) 0050 (Given - Provider: Bertha Coley RN) 50-100 mg, Oral, EVERY 4 HOURS NEEDED , 4 doses, Starting Maisha 12/01/12 at 1510, Until 12/03/12 at 0852, Pain oxyCODONE-acetaminophen (PERCOCET) 5 mg-325 mg tablet 1-2 Tab (CANCELED) 1957 (Given - Provider: Bertha Coley RN)2212 (Given - Provider: Bertha Coley, FAYE) 0226 (Given - Provider: Bertha travis RN)0649 (Given - Provider: Bertha Coley RN) 1-2 Tab, Oral, EVERY 4 HOURS NEEDED, Starting 12/03/12 at 0955, Until 12/05/12 at 1857, Pain sodium chloride 0.65% (OCEAN) nasal solution 1-2 [place] (CANC ELED) 1312 (Given - Provider: Stacy Carlton, FAYE) 1-2 [place], Each Nare, EVERY 2 HOURS N EEDED, Starting 12/04/12 at 1014, Until 12/05/12 at 1857, Nasal Congestion zolpidem (AMBIEN) tablet 5 mg (CANCELED) 2211 (Given - Provider: Bertha Coley, RN) 2124 (Given - Provider: Bertha Coley, FAYE) 5 mg, Oral, AT BEDTIME NEEDED, Starti ng Sat 12/03/12 at 2200, Until Wed12/05/12 at 1857, Sleep, Dose Recommendations for Insomnia, Short-term treatment: Men: 5 or 10 mg ORALLY immediately before bedtim e Women: 5 mg ORALLY immediately before bedtime Elderly (>= 65): 5 mg ORALLY immediately before bedtime Debilitated Patients: 5 mg ORALLY immediately before bedtime documented in this encounter Care Teams [employer] Relationship Specialty Start Date End Date Kilo Kovacs MD PCP - General Obstetrics/Gynecolog 11/15/12 02/18/22 y Dell Urbina PCP - Primary Care 11/15/1202/03 [facility] - [address] [facility] [place] [id number] documented as of this encounter
--- OUTSIDE RECORDS SUMMARY | 2022-03-16 09:13 | XMS_ITS | Clinical Summary ---
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 cardiomegaly, no pericardial effusion. Study is significantly limited due to presence of motion artifact, as well as significant contrast opacification of the pulmonary veins. No definite filling defects identified within the ma in, lobar, and contrast opacified portions of the segmental pulmonary arteries. Lungs and pleura: Stable 0.4 cm nodule i n the right middle lobe. No focal consolidation. Stable 0.5 cm subpleural nodule in the lingula. No evidence of pulmonary infarct. Thyroid and lower neck: No suspicious th yroid nodule. Mediastinum/taco: No lymphadenopathy. Chest wall: No axillary lymphadenopathy. Upper abdomen: Diffuse hepatic steatosis and hepatomegaly. Ill-defined hypodensities in the posterior right lobe of the liver, not definitively seen previously. Postcholecystectomy. Bones: Stable nonaggressive appearing ly tic lesion in the upper sternum. Multilevel degenerative changes of the spine. No suspicious/aggressive focal osseous lesion. IMPRESSION: 1. Within limitations as described above , no definite evidence of acute pulmonary embolus. 2. Ill-defined hypodensities in the post erior right lobe of the liver, not definitively seen previously. These may reflect areas of fatty infiltration, recommend follow-up with liver MRI on a nonemergent basis. Please note that all CT scans at this [facility] use dose modulation, iterative reconstruction, and/or weight-based dosing when appropriate to reduce radiation dose to as low as reasonably achievable. Dictated by Karey Groves MD @ 03/12/2022 9:12 :52 PM (Electronically Signed) Rosanna ESCALANTE CT US VENOUS LOWER EXTREMITY BILATERAL (03/12/2022 6:12 PM INFORMATION SERVICES VICE PRESIDENT) Anatomical Region Laterality Modality LEGS, LEG L, LEG R Ultrasound Specimen (Source) Anatomical Collection Method Collection Time Re ceived Time Location / / Volume Laterality 03/12/2022 6:33 PM INFORMATION SERVICES VICE PRESIDENT Impressions 03/12/2022 6:33 PM INFORMATION SERVICES VICE PRESIDENT No DVT in the bilateral lower extremities Dictated by Odalys Murdock MD @ 03/12/2022 6 :33:54 PM (Electronically Signed) Narrative 03/12/2022 6:33 PM INFORMATION SERVICES VICE PRESIDENT For Patients: ??As a result of the 21st Century Cures Act, medical imaging exams and procedure report s are released immediately into your [facility] medical record. ??You may view this report before your referring provider. ??If you have questions, please contact your health care provider. INDICATION: Leg pain and swelling. TECHNIQUE: Ultrasound venous duplex bilateral lower extremity. Compression venous exam was performed using hooks-scale, color Doppler, and spectral Doppler analysis. COMPARISON: None. FINDINGS: Deep veins: Sonographic imaging demonstr ates the bilateral common femoral, deep femoral, superficial femoral, popliteal, and posterior tibial veins to be fully compressible with normal color Doppler blood flow. Superficial veins: Greater saphenous vei ns are fully compressible. No popliteal cyst. Procedure Note Odalys Murdock MD - 03/12/2022Format ting of this note might be different from the original. For Patients: As a result of the ntury Cures Act, medical imaging exams and procedure reports are released immediately into your electronic medical record. You may view this report before your referring provider. If you have questions, please contact [facility] health care provider. INDICATION: Leg pain and swelling. TECHNIQUE: Ultrasound venous duplex bilateral lower extremity. Compression venous exam was performed using hooks-scale, color Doppler, and spectral Doppler analysis. COMPARISON: None. FINDINGS: Deep veins: Sonographic imaging demonstr ates the bilateral common femoral, deep femoral, superficial femoral, popliteal, and posterior tibial veins to be fully compressible with normal color Doppler blood flow. Superficial veins: Greater saphenous vei ns are fully compressible. No popliteal cyst. IMPRESSION: No DVT in the bilateral lower extremitie s Dictated by Odalys Murdock MD @ 03/12/2022 6 :33:54 PM (Electronically Signed) Rosanna ESCALANTE US (ABNORMAL) D-DIMER,QUANTITATIVE (03/12/2022 5:03 PM INFORMATION SERVICES VICE PRESIDENT) Analysis Performed At Patho logist Time Signature D-DIMER,QUANTI 0.69 (H) <0.50 FEU 03/12/2022 [place] TATIVE mcg/mL FEU 5:18 PM INFORMATION SERVICES VICE PRESIDENT [facility] CENTER mcg/mL LABORATORY Specimen Anatomical Collection Method Collection Time Receive d Time (Source) Location / / Volume Laterality Blood BLOOD SPECIMEN / Butterfly / 03/12/2022 5:03 PM 03/12 5:06 Unknown Unknown INFORMATION SERVICES VICE PRESIDENT PM INFORMATION SERVICES VICE PRESIDENT Narrative [facility] LABORATORY - 5:18 PM INFORMATION SERVICES VICE PRESIDENT The cut off value for exclusion of Deep Vein Thrombosis and / or Pulmonary Embolism is 0.50 FEU mcg/mL For patients greater than 50 years of ag e the upper limit is age dependent and was calculated with the formula: ?? (PATIENT AGE x 0.01) FEU mcg/mL = Upper limit of normal range Rosanna ESCALANTE HEMATOLOGY Performing Organization Address City/State/ZIP Code Phon e Number [facility] [address] [place] [address] US OB 1ST TRI SINGLE TA AND TV (03/12/2022 3:50 PM INFORMATION SERVICES VICE PRESIDENT) Anatomical Region Laterality Modality Ultrasound Specimen (Source) Anatomical Collection Method Collection Time Re ceived Time Location / / Volume Laterality 03/12/2022 4:21 PM INFORMATION SERVICES VICE PRESIDENT Impressions 03/12/2022 4:21 PM INFORMATION SERVICES VICE PRESIDENT Demonstration of a 5.0 millimeter gestational sac without pole or yolk sac at this time corresponding to a 5 week 0 day gestation. There is trace subchorionic hemorrhage appreciated. Recommend continued follow-up with seria l beta HCG and repeat ultrasound to document viability. Dictated by Victoriano Galloway MD @ 4:21:40 PM (Electronically Signed) Narrative 03/12/2022 4:21 PM INFORMATION SERVICES VICE PRESIDENT For Patients: ??As a result of the Cures Act, medical imaging exams and procedure report s are released immediately into your [facility]. ??You may view this report before your referring provider. ??If you have questions, please contact your health care provider. INDICATION: Chest Pain TECHNIQUE: Ultrasound OB pelvis transabdominal and transvaginal. Real-time hooks-scale imaging of the pelvis was performed. COMPARISON: None FINDINGS: Sonographic images demonstrate a gestati onal sac measuring 5.0 x 5.0 x 5.0 millimeters. There is no definite pole or yolk sac at this time. There is questionable minimal amount of perigestational hemorrhage. There is likely a corpus lut eum cyst within the left ovary. Otherwise the ovaries are within normal limits. Procedure Note Victoriano Galloway MD - 03/12/2022Fo rmatting of this note might be different from the original. For Patients: As a result of the Cures Act, medical imaging exams and procedure reports are released immediately into your electronic medical record. You may view this report before your referring provider. If you have questions, please contact yo health care provider. INDICATION: Chest Pain TECHNIQUE: Ultrasound OB pelvis transabdominal and transvaginal. Real-time hooks-scale imaging of the pelvis was performed. COMPARISON: None FINDINGS: Sonographic images demonstrate a gestati onal sac measuring 5.0 x 5.0 x 5.0 millimeters. There is no definite pole or yolk sac at this time. There is questionable minimal amount of perigestational hemorrhage. There is likely a corpus luteum cyst within th e left ovary. Otherwise the ovaries are within normal limits. IMPRESSION: Demonstration of a 5.0 millimeter gestat ional sac without pole or yolk sac at this time corresponding to a 5 week 0 day gestation. There is trace subchorionic hemorrhage appreciated. Recommend continued follow-up with seria l beta HCG and repeat ultrasound to document viability. Dictated by Victoriano Galloway MD @ 2 4:21:40 PM (Electronically Signed) Rosanna ESCALANTE US UA W/ SEDIMENT EXAM REFLEXED PER CRITERIA (03/12/2022 2:58 PM [facility])Only the most recent of3 resultswithin the time period is included. [facility] Method Time Signature COLOR Yellow Yellow Color 03/12/2022 [place] 3:23 PM [facility] LABORATORY CLARITY Clear Clear 03/12/2022 [place] Clarity 3:23 PM [facility] LABOR[facility] SPECIFIC 1.025 1.010, 03/12/2022 [place] GRAVITY,URINE 1.015, 3:23 PM [facility] 1.020, 1.025 LABORATORY PH,URINE 6.0 6.0, 7.0, 03/12/2022 [place] 8.0, 5.5, 3:23 PM [facility] 6.5, 7.5, LABORATORY 8.5 UROBILINOGEN, Normal Normal EU/dl 03/12/2022 [place] QUALITATIVE 3:23 PM [facility] LABORATORY PROTEIN, Negative Negative 03/12/2022 [place] URINE mg/dL 3:23 PM [facility] LAB[facility]ORY GLUCOSE, Negative Negative 03/12/2022 [place] URINE mg/dL 3:23 PM [facility] LABOR[facility]ORY KETONES,URINE Negative Negative 03/12/2022 [place] mg/dL 3:23 PM [facility] LAB[facility]ORY BILIRUBIN,URI Negative Negative 03/12/2022 [place] NE 3:23 PM [facility] LAB[facility] OCCULT Negative Negative 03/12/2022 [place] BLOOD,URINE 3:23 PM [facility] NITRITE Negative Negative 03/12/2022 [place] 3:23 PM [facility] LEUKOCYTE Negative Negative 03/12/2022 [facility] EST[facility]ASE 3:23 PM [facility] LABOR[facility]ORY Specimen Anatomical Collection Method Collection Time Receive d Time (Source) Location / / Volume Laterality Urine URINE SPECIMEN / Non-Blood / 03/12/2022 2:58 PM 03/12 3:03 Unknown Unknown INFORMATION SERVICES VICE PRESIDENT PM INFORMATION SERVICES VICE PRESIDENT Rosanna ESCALANTE URINE Performing Organization Address City/State/ZIP Code Phon e Number [facility] [address] [place] [address] (ABNORMAL) CBC WITH AUTO DIFFERENTIAL (03/12/2022 2:37 PM INFORMATION SERVICES VICE PRESIDENT)Only the most recent of3 resultswithin the time period is included. [facility] Method Time Signature WHITE BLOOD 16.0 (H) 4.5 - 03/12/2022 [place] COUNT 11.0 2:50 PM [facility] thou/cu LABORATORY mm RED BLOOD COUNT 4.59 4.00 - 03/12/2022 [place] 5.20 2:50 PM [facility] mil/cu mm LABORATORY HEMOGLOBIN 13.4 12.0 - 03/12/2022 [place] 16.0 g/dL 2:50 PM [facility] LABORATORY HEMATOCRIT 41.4 33.0 - 03/12/2022 [place] 51.0 % 2:50 PM [facility] LABORATORY MCV 90 80 - 100 03/12/2022 [place] fL 2:50 PM [facility] LABORATORY MCH 29.2 26.0 - 03/12/2022 [place] 34.0 pg 2:50 PM [facility] LABORATORY MCHC 32.4 32.0 - 03/12/2022 [place] 36.0 g/dL 2:50 PM [facility] LABORATORY RDW 14.6 11.5 - 03/12/2022 [place] 15.5 % 2:50 PM [facility] LABORATORY PLATELET COUNT 356 140 - 440 03/12/2022 [place] thou/cu 2:50 PM [facility] mm LABORATORY MPV 9.4 6.5 - 03/12/2022 [place] 11.0 fL 2:50 PM [facility] LABORATORY % NEUT 76.8 % 03/12/2022 [place] 2:50 PM [facility] LABORATORY % LYMPH 17.8 % 03/12/2022 [place] 2:50 PM [facility] LABORATORY % MONO 4.9 % 03/12/2022 [place] 2:50 PM [facility] LAB[facility] % EOS 0.4 % 03/12/2022 [place] 2:50 PM [facility] LABORATORY % BASO 0.1 % 03/12/2022 [place] 2:50 PM [facility] LABORATORY ABSOLUTE 12.3 (H) 1.7 - 7.0 03/12/2022 [place] NEUTROPHILS thou/cu 2:50 PM [facility] mm LABORATORY ABSOLUTE 2.9 0.9 - 2.9 03/12/2022 [place] LYMPHOCYTES thou/cu 2:50 PM [facility] mm LABORATORY ABSOLUTE 0.8 <0.9 03/12/2022 [place] MONOCYTES thou/cu 2:50 PM [facility] mm LABORATORY ABSOLUTE 0.1 <0.5 03/12/2022 [place] EOSINOPHILS thou/cu 2:50 PM [facility] mm LABORATORY ABSOLUTE 0.0 <0.3 03/12/2022 [place] BASOPHILS thou/cu 2:50 PM [facility] mm LABORATORY Specimen Anatomical Collection Method / Collection Time Recei uli Time (Source) Location / Volume Laterality Blood BLOOD SPECIMEN / Venipuncture / 03/12/2022 2:37 2021 2:45 Unknown Unknown PM INFORMATION SERVICES VICE PRESIDENT PM INFORMATION SERVICES VICE PRESIDENT Rosanna ESCALANTE HEMATOLOGY Performing Organization Address City/[facility] Phon e Number [facility] [address] [place] [address] TROPONIN I (03/12/2022 2:37 PM INFORMATION SERVICES VICE PRESIDENT) P athologist Signature TROPONIN I <0.010 <0.034 03/12/2022 [place] ng/mL 3:18 PM [facility] LAB[facility] Specimen Anatomical Collection Method / Collection Time Recei uli Time (Source) Location / Volume Laterality Blood BLOOD SPECIMEN / Venipuncture / 03/12/2022 2:37 2021 2:45 Unknown Unknown PM INFORMATION SERVICES VICE PRESIDENT PM INFORMATION SERVICES VICE PRESIDENT Rosanna ESCALANTE CHEMISTRY Performing Organization Address City/[facility] Phon e Number [facility] [address] [place] [address] (ABNORMAL) ,SERUM (03/12/2022 2:37 PM INFORMATION SERVICES VICE PRESIDENT) Patholo gist Method Time Signature ,SER Positive Negative 03/13/2022 [place] [facility] (Positive) 11:51 AM [facility] LABOR[facility] Comment: Is Rh typing necessary? Specimen Anatomical Collection Method / Collection Time Recei uli Time (Source) Location / Volume Laterality Blood BLOOD SPECIMEN / Venipuncture / 03/12/2022 2:37 2021 Unknown Unknown PM INFORMATION SERVICES VICE PRESIDENT 11:31 AM INFORMATION SERVICES VICE PRESIDENT Rosanna ESCALANTE CHEMISTRY Performing Organization Address City/State/ZIP Code Phon e Number [facility] [address] [place] [address] HCG BETA QUANT, (03/12/2022 2:37 PM INFORMATION SERVICES VICE PRESIDENT) P athologist Signature HCG BETA 1,601 mIU/mL 03/12/2022 [place] QUANT,PREGNANC 3:35 PM INFORMATION SERVICES VICE PRESIDENT [facility] Specimen Anatomical Collection Method / Collection Time Recei uli Time (Source) Location / Volume Laterality Blood BLOOD SPECIMEN / Venipuncture / 03/12/2022 2:37 2021 2:45 Unknown Unknown PM INFORMATION SERVICES VICE PRESIDENT PM INFORMATION SERVICES VICE PRESIDENT Narrative [facility] LAB[facility] - 3:35 PM INFORMATION SERVICES VICE PRESIDENT Expected Value for Healthy Non- premenopausal women <5mIU/mL ? FOR GESTATIONAL ASSESSMENT-See Range Table Below ? Weeks Post LMP ?Approximate HCG Range: ? (Last Menstrual Period) ?3-4 ?? Weeks ? (9-130) ?4-5 ?? Weeks ? ([phone]) ?5-6 ?? Weeks ? ([phone]) ?6-7 ?? Weeks ? ([phone]) ?7-12 ??Weeks ? ([id number]) ?12-16 Weeks ? ([id number]) ?16-29 Weeks ? ([phone]) ?29-41 Weeks ? ([phone]) Rosanna ESCALANTE CHEMISTRY Performing Organization Address City/[facility] Phon e [facility] LABORATORY [address] [place] [address] LIPASE (03/12/2022 2:37 PM INFORMATION SERVICES VICE PRESIDENT)Only the most recent of3 resultswithin the time period is included. athologist Signature LIPASE 17.6 8.0 - 78.0 03/12/2022 [place] IU/L 3:11 PM [facility] LABOR[facility]ORY Specimen Anatomical Collection Method / Collection Time Recei uli Time (Source) Location / Volume Laterality Blood BLOOD SPECIMEN / Venipuncture / 03/12/2022 2:37 2021 2:45 Unknown Unknown PM INFORMATION SERVICES VICE PRESIDENT PM INFORMATION SERVICES VICE PRESIDENT Rosanna ESCALANTE CHEMISTRY Performing Organization Address [facility] Phon e [facility] LABORATORY [address] [place] [address] HEPATIC FUNCTION PANEL (03/12/2022 2:37 PM INFORMATION SERVICES VICE PRESIDENT)Only the most recent of2 results within the time period is included. athologist Signature ALBUMIN 4.0 3.5 - 5.2 03/12/2022 [place] g/dL 3:10 PM [facility] PROTEIN,TOTAL 7.6 6.0 - 8.0 03/12/2022 [place] g/dL 3:10 PM [facility] GLOBULIN 3.6 2.0 - 3.7 03/12/2022 [place] g/dL 3:10 PM [facility] LAB[facility] A/G RATIO 1.1 1.0 - 2.0 03/12/2022 [place] 3:10 PM [facility] LAB[facility] BILIRUBIN,TOTAL 0.8 0.2 - 1.2 03/12/2022 [place] mg/dL 3:10 PM [facility] BILIRUBIN,DIRECT 0.3 0.1 - 0.5 03/12/2022 [place] mg/dL 3:10 PM [facility] BILIRUBIN,INDIRE 0.5 0.2 - 0.8 03/12/[address] [place] [address] mg/dL 3:10 PM [facility] ALK PHOSPHATASE 72 50 - 136 03/12/2022 [place] IU/L 3:10 PM [facility] ALT (SGPT) 15 8 - 45 03/12/2022 [place] IU/L 3:10 PM [facility] AST (SGOT) 12 2 - 40 03/12/2022 [facility] IU/L 3:10 PM [facility] Specimen Anatomical Collection Method / Collection Time Recei uli Time (Source) Location / Volume Laterality Blood BLOOD SPECIMEN / Venipuncture / 03/12/2022 2:37 2021 2:45 Unknown Unknown PM [facility] PM INFORMATION SERVICES VICE PRESIDENT Rosanna ESCALANTE CHEMISTRY Performing Organization Address City/[facility]/ZIP Code Phon e Number [facility] [address] [place] [address] (ABNORMAL) BASIC METABOLIC PANEL (03/12/2022 2:37 PM [facility])Only the most recent of 2 resultswithin the time period is included. Analysis Performed At Patho logist Time Signature SODIUM 136 135 - 145 03/12/2022 [place] mmol/L 3:08 PM [facility] POTASSIUM 3.2 (L) 3.5 - 5.0 03/12/2022 [facility] mmol/L 3:08 PM [facility] CHLORIDE 103 98 - 110 03/12/2022 [place] mmol/L 3:08 PM [facility] CO2,TOTAL 25 21 - 31 03/12/2022 [place] mmol/L 3:08 PM [facility] ANION GAP 8 5 - 18 03/12/2022 [place] 3:08 PM [facility] GLUCOSE 115 (H) 65 - 100 03/12/2022 [place] mg/dL 3:08 PM [facility] CALCIUM 8.9 8.5 - 10.5 03/12/2022 [place] mg/dL 3:08 PM [facility] BUN 8 8 - 25 03/12/2022 [place] mg/dL 3:08 PM [facility] CREATININE 0.76 0.57 - 03/12/2022 [place] 1.11 mg/dL 3:08 PM [facility] BUN/CREAT RATIO 11 10 - 20 03/12/2022 [place] 3:08 PM [facility] eGFR >90 >90 03/12/2022 [place] mL/min/1.7 3:08 PM [facility] 3m2 LABORATORY Comment: As of 2021, eGFR is calcu lated by the CKD-EPI creatinine equation without race adjustment. eGFR can be inf luenced by muscle mass, exercise, and diet. The reported eGFR is an estimation only and is only applicable if the renal function is stable. Specimen Anatomical Collection Method / Collection Time Recei uli Time (Source) Location / Volume Laterality Blood BLOOD SPECIMEN / Venipuncture / 03/12/2022 2:37 2021 2:45 Unknown Unknown PM [facility] INFORMATION SERVICES VICE PRESIDENT Rosanna ESCALANTE CHEMISTRY Performing Organization Address City/State/ZIP Code Phon e Number [facility] [address] [place] [address] EKG 12 LEAD (03/12/2022 2:16 PM [facility]) Component Value Ref Range Test Analysis Performed Pathologis t Method Time At Signature Interpretation Normal sinus rhythm BEYON D NOW Possible Left atrial enlargement Left ventricular hypertrophy Abnormal ECG When compared with ECG of 18-NOV-2021 19:21, No significant change was found Ventricular Rate 98 BPM BEYOND NOW Atrial Rate 98 BPM BEYOND NOW P-R Interval 190 ms BEYOND NOW QRS Duration 78 ms BEYOND NOW QT 362 ms BEYOND NOW QTc 462 ms BEYOND NOW P [place] 48 degrees BEYOND NOW R [place] -12 degrees BEYOND NOW T [place] 28 degrees BEYOND NOW Specimen Anatomical Collection Method Collection Time Receive d Time (Source) Location / / Volume Laterality 03/12/2022 2:16 PM 8:08 INFORMATION SERVICES VICE PRESIDENT PM INFORMATION SERVICES VICE PRESIDENT Rosanna ESCALANTE EKG ORD Performing Organization Address City/[facility]/ZIP Code Phon e Number BEYOND NOW [place], [place] COVID 19 (02/19/2022 1:23 PM INFORMATION SERVICES VICE PRESIDENT) [facility] Method Time Signature COVID 19 Not detected Not detected 02/19/2022 [facility] 1:54 PM INFORMATION SERVICES VICE PRESIDENT [facility] LABORAT[facility] Specimen Anatomical Location / Collection Method Collection Jeffrey e Received Time (Source) Laterality / Volume Other SPECIMEN FROM Non-Blood / 02/19/2022 1:23 02/19/2022 1:27 NASOPHARYNGEAL Unknown PM INFORMATION SERVICES VICE PRESIDENT PM INFORMATION SERVICES VICE PRESIDENT STRUCTURE / Unknown Narrative [facility] - 1:54 PM INFORMATION SERVICES VICE PRESIDENT This test has been authorized by FDA und er an Emergency Use Authorization (EUA). This test is only authorized for the duration of time the declaration that circumstances exist justifying the authorization of th e emergency use of in vitro diagnostic tests for detection of SARS-CoV-2 virus and/or diagnosis of COVID-19 infection under section 564(b)(1) of the Act, 21 U.S.C. 360bbb-3(b) (1), unless the authorization is terminated or revoked sooner. Yrn Higgins MD MICROBIOLOGY Performing Organization Address City/State/[facility] Phon e Number [facility] [address] [place] [address] COVID 19 COLLECTION (02/19/2022 1:23 PM INFORMATION SERVICES VICE PRESIDENT) [facility] Method [facility] TESTING [facility] 02/19/2022 [facility] Laboratory 1:27 PM [facility] Comment: Specimen submitted to [facility] for testing. Specimen Anatomical Location / Collection Method Collection Jeffrey e Received Time (Source) Laterality / Volume Other SPECIMEN FROM Non-Blood / 02/19/2022 1:23 02/19/2022 1:26 NASOPHARYNGEAL Unknown PM INFORMATION SERVICES VICE PRESIDENT PM INFORMATION SERVICES VICE PRESIDENT STRUCTURE / Unknown Yrn Higgins MD SEND OUTS Performing Organization Address City/State/ZIP Code Phon e Number [facility] [address] [place] [address] CT ANGIO LOWER EXTREMITY BILAT RUNOFF (02/19/2022 9:22 AM INFORMATION SERVICES VICE PRESIDENT) Anatomical Region Laterality Modality LEGS Computed Tomography Specimen (Source) Anatomical Collection Method Collection Time Re ceived Time Location / / Volume Laterality 02/19/2022 10:26 AM INFORMATION SERVICES VICE PRESIDENT Impressions 02/19/2022 10:26 AM INFORMATION SERVICES VICE PRESIDENT 1. Puncture wound to anterior aspect of distal right thigh with some active extravasation in the right adductor musculature. It is difficult to tell whether the bleed arises from the SFA itself or due t o injury at the very proximal aspect of an SFA branch. Distal to this SFA is widely patent without dissection. No pseudoaneurysm. 2. Otherwise, normal vasculature with no atherosclerosis or stenoses. Please note that all CT scans at this [facility] use dose modulation, iterative reconstruction, and/or weight-based dosing when appropriate to reduce radiation dose to as low as reasonably achievable. Dictated by Robin Paulino MD @ 02/20/20 10:26:41 AM (Electronically Signed) Narrative 02/19/2022 10:26 AM INFORMATION SERVICES VICE PRESIDENT For Patients: ??As a result of the Century Cures Act, medical imaging exams and procedure report s are released immediately into your [facility] medical record. ??You may view this report before your referring provider. ??If you have questions, please contact your health care provider. INDICATION : Puncture wound to right thigh. Evaluate for underlying arterial injury. TECHNIQUE: CTA pelvis and lower extremities with co antoinette and sagittal reformations. 135 mL Omnipaque 350. COA=680 mGy cm. COMPARISON: None available. FINDINGS: The abdominal aorta is not included in t he images. Visualized portions of the common iliac arteries are normal. Common, internal, and external iliac arteries are patent bilaterally. Patent common femora l arteries. On the right, the superficia l femoral and profunda femoral arteries are widely patent. Puncture wound identified in the distal anterior thigh (series 6, image 144) small amount of extravasat ion is identified into the adductor musc ulature. It is difficult to tell whether this arises from the SFA itself or from the proximal aspect of a SFA branch. There is no dissection or pseudoaneurysm. Th e popliteal artery is patent. Three-vess el runoff. Left leg arteries are normal with no noris dence of stenosis or atherosclerosis. Three-vessel runoff. Visualized bowel unremarkable. Uterus and urinary bladder are unremarkable. No adenopathy. No pneumoper itoneum or free fluid. Aside from the pu ncture wound in the anterior distal right thigh, the remainder of the skin and subcutaneous soft tissues of the lower extremities are unremarkable. No acute or aggressive osseous abnormality. Procedure Note Robin Paulino MD - 02/19/2022F ormatting of this note might be different from the original. For Patients: As a result of the ntury Cures Act, medical imaging exams and procedure reports are released immediately into your electronic medical record. You may view this report before your referring provider. If you have questions, please contact [facility] health care provider. INDICATION : Puncture wound to right thigh. Evaluate for underlying arterial injury. TECHNIQUE: CTA pelvis and lower extremities with co antoinette and sagittal reformations. 135 mL Omnipaque 350. RVR=803 mGy cm. COMPARISON: None available. FINDINGS: The abdominal aorta is not included in t he images. Visualized portions of the common iliac arteries are normal. Common, internal, and external iliac arteries are patent bilaterally. Patent common femoral arteries. On the right, the superficial femoral and profu nda femoral arteries are widely patent. Puncture wound identified in the distal anterior thigh (series 6, image 144) small amount of extravasation is identified into the adductor musculature. It is difficult to tell whe ther this arises from the SFA itself or from the proximal aspect of a SFA branch. There is no dissection or pseudoaneurysm. The popliteal artery is patent. Three-vessel runoff. Left leg arteries are normal with no noris dence of stenosis or atherosclerosis. Three-vessel runoff. Visualized bowel unremarkable. Uterus and urinary bladder are unremarkable. No adenopathy. No pneumoperitoneum or free fluid. Aside fr om the puncture wound in the anterior distal right thigh, the remainder of the skin and subcutaneous soft tissues of the lower extremities are unremarkable. No acute or aggressive osseous abnormality. IMPRESSION: 1. Puncture wound to anterior aspect of distal right thigh with some active extravasation in the right adductor musculature. It is difficult to tell whether the bleed arises from the SFA itself or due to injury at the very proximal aspect of an SFA branch. D istal to this SFA is widely patent without dissection. No pseudoaneurysm. 2. Otherwise, normal vasculature with no atherosclerosis or stenoses. Please note that all CT scans at this [facility] use dose modulation, iterative reconstruction, and/or weight-based dosing when appropriate to reduce radiation dose to as low as reasonably achievable. Dictated by Robin Paulino MD @ 02/20/20 10:26:41 AM (Electronically Signed) Yrn Higgins MD CT CREATININE,ISTAT (02/19/2022 9:14 AM [facility]) athologist Signature CREATININE, 0.70 0.57 - 02/19/2022 [place] POCT 1.11 mg/dL 9:17 AM [facility] LAB[facility] eGFR >90 >90 02/19/2022 [place] mL/min/1.7 9:17 AM [facility] 3m2 LABORATORY Comment: As of 2021, eGFR is calcu lated by the CKD-EPI creatinine equation without race adjustment. eGFR can be inf luenced by muscle mass, exercise, and diet. The reported eGFR is an estimation only and is only applicable if the renal function is stable. Specimen Anatomical Collection Method Collection Time Receive d Time (Source) Location / / Volume Laterality Blood BLOOD SPECIMEN / 02/19/2022 9:14 AM 02/19 9:17 Unknown INFORMATION SERVICES VICE PRESIDENT AM INFORMATION SERVICES VICE PRESIDENT Yrn Higgins MD CHEMISTRY Performing Organization Address City/State/ZIP Code Phon e Number [facility] [address], [place] [id number] (ABNORMAL) PROTIME-INR (02/19/2022 8:58 AM [facility]) athologist Signature INR 0.9 <1.3 02/19/2022 [place] 9:20 AM [facility] PROTIME 11.7 (L) 12.0 - 13.8 02/19/2022 [facility] sec 9:20 AM [facility] Specimen Anatomical Collection Method / Collection Time Recei uli Time (Source) Location / Volume Laterality Blood BLOOD SPECIMEN / Venipuncture / 02/19/2022 8:58 2021 9:10 Unknown Unknown AM INFORMATION SERVICES VICE PRESIDENT AM INFORMATION SERVICES VICE PRESIDENT Narrative [facility] - 9:20 AM INFORMATION SERVICES VICE PRESIDENT ?Therapeutic Range 2.0-3.0 for most anticoagulated patients 2.5-3.5 or 4.0 for high risk patients The INR is only used for patients on sta ble oral anticoagulant therapy. It makes no significant contribution to the diagnosis or treatment of patients whose Protime is prolonged f or other reasons. INR results are increased when heparin l evels exceed 1.0 U/mL, which corresponds to an aPTT >125 seconds if the patient is on UFH. Yrn Higgins MD HEMATOLOGY Performing Organization Address City/State/ZIP Code Phon e Number [facility] [address] [place] [address] XR WRIST 3 VIEWS LEFT (02/03/2022 5:50 PM CDT) Anatomical Region Laterality Modality WRISTS, WRIST L Digital Radiography Specimen (Source) Anatomical Collection Method Collection Time Re ceived Time Location / / Volume Laterality 02/03/2022 6:00 PM CDT Narrative 02/03/2022 6:00 PM CDT For Patients: ??As a result of the Cures Act, medical imaging exams and procedure report s are released immediately into your [facility] medical record. ??You may view this report before your referring provider. ??If you have questions, please contact your health care provider. Indication: Wrist pain/problem. Technique: Left wrist 3 views. Comparison: None. Findings: Bones: Alignment is normal. No fractures or bone lesions. ?? Joint spaces: Joint spaces are well main tained. No degenerative changes. ?? Soft tissues: Unremarkable. ?? Impression: No findings to explain pain. Dictated by Alli Kennedy MD @ 02/03/2022 6:00 :00 PM (Electronically Signed) Procedure Note Alli Kennedy MD - 02/03/2022Format ting of this note might be different from the original. For Patients: As a result of the Cures Act, medical imaging exams and procedure reports are released immediately into your electronic medical record. You may view this report before your referring provider. If you have questions, please contact [facility] health care provider. Indication: Wrist pain/problem. Technique: Left wrist 3 views. Comparison: None. Findings: Bones: Alignment is normal. No fractures or bone lesions. Joint spaces: Joint spaces are well main tained. No degenerative changes. Soft tissues: Unremarkable. Impression: No findings to explain pain. Dictated by Alli Kennedy MD @ 02/03/2022 6:00 :00 PM (Electronically Signed) Consuelo Ed Triage GENERAL IMAGING URINE CULTURE (01/14/2022 1:37 PM CDT) [facility] gist Method Time Signature CULTURE 10-50,000 CFU/mL [facility]28 PM CDT LABORATORY-[facility] organisms, TRAL probable LABORATORY contaminants Specimen Anatomical Collection Method Collection Time Receive d Time (Source) Location / / Volume Laterality Urine URINE SPECIMEN / Non-Blood / 01/14/2022 1:37 PM 01/14 1:38 Unknown Unknown CDT PM CDT Merline Barrera MD MICROBIOLOGY Performing Organization Address City/State/ZIP Code Phon e Number [facility] [id number] [place] [address] LABORATORY-CENTRAL 2000 LABORATORY PROGESTERONE (01/14/2022 1:31 PM CDT)Only the most recent of2 resultswithin the time period is included. athologist Signature PROGESTERONE <0.5 ng/mL 01/15/2022 [facility] 3:42 PM CDT LABORATORY-CENT RAL LABORATORY Specimen Anatomical Collection Method / Collection Time Recei uli Time (Source) Location / Volume Laterality Blood BLOOD SPECIMEN / Venipuncture / 01/14/2022 1:31 2021 1:37 Unknown Unknown PM CDT PM CDT Narrative [facility] LABORATORY-CENTRAL LABORAT ORY - 01/15/2022 3:42 PM CDT ? Female: ??Follicular ? (<0.3) ?Luteal ? (1.5-15.9) ?Post Menopausal ?(<0.2) ? Female: ?1st Trimester ?(2.8-147.3) ?2nd Trimester ?(22.5-95.3) ?3rd Trimester ?(27.9-242.5) ? Male: ? (<0.2) ? Merline Barrera MD SEND OUTS Performing Organization Address City/State/ZIP Code Phon e Number [email or web address] [id number] [place] [address] LABORATORY-CENTRAL 2000 LABORATORY (ABNORMAL) COMP METABOLIC PANEL (01/14/2022 1:31 PM CDT)Only the most recent of2 resultswithin the time period is included. [facility] Method Time Signature SODIUM 139 135 - 145 01/15/2022 [facility] mmol/L 1:31 PM CDT LABORATORY-[facility] TRAL LABORATORY POTASSIUM 3.9 3.5 - 5.0 01/15/2022 [facility] mmol/L 1:31 PM CDT LABORATORY-[facility] TRAL LABORATORY CHLORIDE 109 98 - 110 01/15/2022 [facility] mmol/L 1:31 PM CDT LABORATORY-[facility] TRAL LABORATORY CO2,TOTAL 24 21 - 31 01/15/2022 [facility] mmol/L 1:31 PM CDT LABORATORY-[facility] TRAL LABORATORY ANION GAP 6 5 - 18 01/15/2022 [facility] 1:31 PM CDT LABORATORY-[facility] TRAL LABORATORY GLUCOSE 92 65 - 100 01/15/2022 [facility] mg/dL 1:31 PM CDT LABORATORY-[facility] TRAL LABORATORY CALCIUM 8.4 (L) 8.5 - 10.5 01/15/2022 [facility] mg/dL 1:31 PM CDT LABORATORY-[facility] TRAL LABORATORY BUN 6 (L) 8 - 25 01/15/2022 [facility] mg/dL 1:31 PM CDT LABORATORY-[facility] TRAL LABORATORY CREATININE 0.67 0.57 - 01/15/2022 [facility] 1.11 mg/dL 1:31 PM CDT LABORATORY-[facility] TRAL LABORATORY BUN/CREAT RATIO 9 (L) 10 - 20 01/15/2022 [facility] 1:31 PM CDT LABORATORY-[facility] TRAL LABORATORY ALBUMIN 4.0 3.5 - 5.2 01/15/2022 [facility] g/dL 1:31 PM CDT LABORATORY-[facility] TRAL LABORATORY PROTEIN,TOTAL 7.2 6.0 - 8.0 01/15/2022 [facility] g/dL 1:31 PM CDT LABORATORY-[facility] TRAL LABORATORY GLOBULIN 3.2 2.0 - 3.7 01/15/2022 [facility] g/dL 1:31 PM CDT LABORATORY-[facility] TRAL LABORATORY A/G RATIO 1.3 1.0 - 2.0 01/15/[address] [facility] [facility] 1:31 PM CDT LABORATORY-[facility] TRAL LABORATORY BILIRUBIN,TOTAL 0.3 0.2 - 1.2 01/15/2022 [facility] mg/dL 1:31 PM CDT LABORATORY[facility] TRAL LABORATORY ALK PHOSPHATASE 82 50 - 136 01/15/2022 [facility] IU/L 1:31 PM CDT LAB[facility]AT[facility] TRAL LABORATORY ALT (SGPT) 20 8 - 45 01/15/2022 [facility] IU/L 1:31 PM CDT LAB[facility]ATORY[facility] TRAL LABORATORY AST (SGOT) 19 2 - 40 01/15/2022 [facility] IU/L 1:31 PM CDT LABORATORY[facility] TRAL LABORATORY eGFR >90 >90 01/15/2022 [facility] mL/min/1.7 1:31 PM CDT LABORATORY-[facility] 3m2 TRAL LABORATORY Comment: As of 2021, eGFR is calcu lated by the CKD-EPI creatinine equation without race adjustment. eGFR can be inf luenced by muscle mass, exercise, and diet. The reported eGFR is an estimation only and is only applicable if the renal function is stable. Specimen Anatomical Collection Method / Collection Time Recei uli Time (Source) Location / Volume Laterality Blood BLOOD SPECIMEN / Venipuncture / 01/14/2022 1:31 2021 1:37 Unknown Unknown PM CDT PM CDT Merline Barrera MD CHEMISTRY Performing Organization Address City/State/ZIP Code Phon e Number [facility] [address] [place] [address] LABORATORY-CENTRAL 2000 LABORATORY SCAN CORRESP-DIAGNOSTICS (01/14/2022 12:00 AM CDT) Narrative 01/14/2022 12:00 AM CDT This result has an attachment that is no t available. Ordered by an unspecified provider. Other Clinical Staff OTHER CT ABDOMEN PELVIS WO (01/10/2022 11:01 PM CDT) Anatomical Region Laterality Modality Abdomen, Pelvis, AORTA, LIVER, SPLEEN Co mputed Tomography Specimen (Source) Anatomical Collection Method Collection Time Re ceived Time Location / / Volume Laterality 01/11/2022 12:14 AM CDT Addenda Addendum by Froylan Kam MD o n 01/12/2022 7:51 AM CDT For Patients: ??As a result of the Cures Act, medical imaging exams and procedure reports are released immediately into your electronic medical record. ??You may view this repo rt before your referring provider. ?? If you have questions, please contact [facility] care provider. INDICATION: Acute abdominal pain. TECHNIQUE: CT abdomen pelvis without contrast. COMPARISON: 10/14/2021. Miniscule nonobstructing left renal kristyn culi. Right kidney normal. No downstream calculi or hydronephrosis. Cholecystectomy and fatty infiltration o f the liver. No liver lesions. No abnormality of the unenhanced pancreas, spleen, adrenal glands or aorta. No evidence of lymphadenopathy. Sigmoid diverticulosis without evidence of diverticulitis. No bowel obstruction, free fluid or free air. Serina endix not identified. Uterus, ovaries, bladder and low pelvis normal. No abdominal wall hernia. No lytic or osteoblastic skeletal lesion s. IMPRESSION: 1. Miniscule nonobstructing calculi left kidney. 2. Sigmoid diverticulosis without eviden ce for active diverticulitis. No bowel obstruction, free fluid or free ai r. 3. Hepatic steatosis. Previous cholecyst ectomy. No dilation of the biliary tree. 4. Findings are in agreement with the pr eliminary Teleradiology report. Please note that all CT scans at this [facility] use dose modulation, iterative reconstruction, and/or weight- based dosing when appropriate to reduce radiation dose to as low as reaso nably achievable. Dictated by Chad Kam MD @ 01/12/2022 7:49 :49 AM (Electronically Signed) Narrative 01/11/2022 2:13 AM CDT --- Preliminary Report --- --CT ABDOMEN PELVIS WO-- Comparison: 09/17/2021. Tiny left intrarenal stones. No ureteral stones or hydronephrosis. Sigmoid colon diverticulosis without noris dence of diverticulitis. Fatty infiltration of the liver. Status post cholecystectomy. Preliminary Report by Dr. Sebastien Hernandez @ O ct ??2021 12:14AM --- Preliminary Report --- Procedure Note Logan Hernandez MD / Froylan Kam MD - 01/11/2022 --- Preliminary Report --- --CT ABDOMEN PELVIS WO-- Comparison: 09/17/2021. Tiny left intrarenal stones. No ureteral stones or hydronephrosis. Sigmoid colon diverticulosis without noris dence of diverticulitis. Fatty infiltration of the liver. Status post cholecystectomy. Preliminary Report by Dr. Sebastien Hernandez @ O ct 2021 12:14AM --- Preliminary Report --- Erik Main MD CT (ABNORMAL) URINALYSIS MICROSCOPIC (01/10/2022 9:36 PM CDT) [facility] gist Method Time Signature RBC 3-5 (A) 0-2, None 01/10/2022 [place] Seen /HPF 9:51 PM [facility] WBC 51-100 (A) 0-2, 3-5, 01/10/2022 [place] None Seen 9:51 PM [facility] /HPF LABORATORY BACTERIA Many (A) None 01/10/2022 [place] Seen, 9:51 PM [facility] Rare, Few LABORATORY Bacteria/ HPF EPITHELIAL Many (A) None 01/10/2022 [place] CELLS Seen, Few 9:51 PM [facility] Epi/HPF LABORATORY Mucus Present 01/10/2022 [place] 9:51 PM [facility] LABORATORY Specimen Anatomical Collection Method Collection Time Receive d Time (Source) Location / / Volume Laterality Urine URINE SPECIMEN / Non-Blood / 01/10/2022 9:36 PM 01/10 9:44 Unknown Unknown CDT PM CDT Erik Main MD URINE Performing Organization Address City/[facility]/ZIP Code Phon e Number [facility] [address] [place] [address] , Urine (01/10/2022 9:36 PM CDT) Analysis Performed At Patho logist Time Signature ,URIN Negative Negative 01/10/2022 [place] E 9:51 PM [facility] Specimen Anatomical Collection Method Collection Time Receive d Time (Source) Location / / Volume Laterality Urine URINE SPECIMEN / Non-Blood / 01/10/2022 9:36 PM 01/10 9:44 Unknown Unknown CDT PM CDT Erik Main MD URINE Performing Organization Address City/State/ZIP Code Phon e Number [facility] [address] [place] [address] CBC with Platelets, No Differential (01/10/2022 8:46 PM CDT) P athologist Signature WHITE BLOOD 7.6 4.5 - 11.0 01/10/2022 [place] COUNT thou/cu mm 9:01 PM [facility] LAB[facility] RED BLOOD COUNT 4.54 4.00 - 01/10/2022 [place] 5.20 9:01 PM [facility] CENTER mil/cu mm LABORATORY HEMOGLOBIN 13.4 12.0 - 01/10/2022 [place] 16.0 g/dL 9:01 PM [facility] LAB[facility] HEMATOCRIT 40.5 33.0 - 01/10/2022 [place] 51.0 % 9:01 PM [facility] MCV 89 80 - 100 01/10/2022 [place] fL 9:01 PM [facility] MCH 29.5 26.0 - 01/10/2022 [place] 34.0 pg 9:01 PM [facility] MCHC 33.1 32.0 - 01/10/2022 [place] 36.0 g/dL 9:01 PM [facility] RDW 14.0 11.5 - 01/10/2022 [place] 15.5 % 9:01 PM [facility] PLATELET COUNT 259 140 - 440 01/10/2022 [facility] thou/cu mm 9:01 PM [facility] MPV 9.8 6.5 - 11.0 01/10/2022 [facility] fL 9:01 PM [facility] Specimen Anatomical Collection Method / Collection Time Recei uli Time (Source) Location / Volume Laterality Blood BLOOD SPECIMEN / Venipuncture / 01/10/2022 8:46 2021 8:57 Unknown Unknown PM CDT PM CDT Erik Main MD HEMATOLOGY Performing Organization Address City/State/ZIP Code Phon e Number [facility] [address] [place] [address] SCAN CORRESP-DIAGNOSTICS (01/09/2022 12:00 AM CDT) Narrative 01/09/2022 12:00 AM CDT This result has an attachment that is no t available. Ordered by an unspecified provider. Other Clinical Staff OTHER US PELVIS COMPLETE TA AND TV (12/29/2021 11:08 AM CDT) Anatomical Region Laterality Modality Pelvis Ultrasound Specimen (Source) Anatomical Collection Method Collection Time Re ceived Time Location / / Volume Laterality 12/29/2021 11:16 AM CDT Impressions 12/29/2021 11:16 AM CDT 1. Right ovary is normal. No significant cyst mass, or adnexal lesion. 2. Left ovary is not visualized. 3. No endometrial thickening. Minimal fl uid in the endometrium in lower uterine segment. Dictated by Hong Saucedo MD @ Dec 29 11:16AM (Electronically Signed) ?? Narrative 12/29/2021 11:16 AM CDT For Patients: ??As a result of the Cures Act, medical imaging exams and procedure report s are released immediately into your [facility] medical record. ??You may view this report before your referring provider. ??If you have questions, please contact your health care provider. INDICATION: Right ovarian cyst. TECHNIQUE: Ultrasound pelvis transvaginal for maria r r assessment or to better visualize the endometrium. Real-time sonographic images with spectral and color Doppler imaging of the ovaries were obtained. COMPARISON: CT abdomen and pelvis 10/02/2021. FINDINGS: Uterus: 9.4 x 6.0 x 4.0 cm. ??Normal ech otexture of the myometrium. ??No masses. Anechoic nabothian cysts in the cervix. Endometrium: Transvaginal imaging was pe rformed to better evaluate the endometrium. ??Endometrial thickness measures 11 mm. No sign of endometrial mass. Minimal fluid in the endometrium at the lower uterine segment. The right ovary measures 3.3 x 2.4 x 2.0 cm. Normal blood flow in the right ovary. No adnexal lesions or cysts. Left ovary is not visualized. No pelvic free fluid. Cul-de-sac: No significant free fluid. ? Procedure Note Hong Saucedo MD - 12/29/2021Form atting of this note might be different from the original. For Patients: As a result of the ntury Cures Act, medical imaging exams and procedure reports are released immediately into your electronic medical record. You may view this report before your referring provider. If you have questions, please contact [facility] health care provider. INDICATION: Right ovarian cyst. TECHNIQUE: Ultrasound pelvis transvaginal for maria r r assessment or to better visualize the endometrium. Real-time sonographic images with spectral and color Doppler imaging of the ovaries were obtained. COMPARISON: CT abdomen and pelvis 10/02/2021. FINDINGS: Uterus: 9.4 x 6.0 x 4.0 cm. Normal echot exture of the myometrium. No masses. Anechoic nabothian cysts in the cervix. Endometrium: Transvaginal imaging was pe rformed to better evaluate the endometrium. Endometrial thickness measures 11 mm. No sign of endometrial mass. Minimal fluid in the endometrium at the lower uterine segment. The right ovary measures 3.3 x 2.4 x 2.0 cm. Normal blood flow in the right ovary. No adnexal lesions or cysts. Left ovary is not visualized. No pelvic free fluid. Cul-de-sac: No significant free fluid. IMPRESSION: 1. Right ovary is normal. No significant cyst mass, or adnexal lesion. 2. Left ovary is not visualized. 3. No endometrial thickening. Minimal fl uid in the endometrium in lower uterine segment. Dictated by Hong Saucedo MD @ Dec 29 11:16AM (Electronically Signed) Merline Barrera MD US TSH WITH REFLEX (12/23/2021 9:46 AM CDT) P athologist Signature TSH 0.72 0.35 - 4.94 12/23/2021 [facility] uIU/mL 10:51 AM CDT [facility] LAB[facility] Specimen Anatomical Collection Method / Collection Time Recei uli Time (Source) Location / Volume Laterality Blood BLOOD SPECIMEN / Venipuncture / 12/23/2021 9:46 2021 9:46 Unknown Unknown AM CDT AM CDT Narrative [facility] LAB[facility] - 10:51 AM CDT In Adults, TSH values between 5.00 and 10.00 uIU/ml do not necessarily indicate the presence of Hyp othyroidism. Correlation with clinical findings such as presence of goiter and/or Thyroperoxidase (TPO) Antibody ma y be helpful. For more information please refer to FRANCO 20 ; 291: [phone]. Merline Barrera MD CHEMISTRY Performing Organization Address City/State/ZIP Code Phon e Number [facility] [address] [place] [address] LUTEINIZING HORMONE (12/23/2021 9:46 AM CDT) P athologist Signature LUTEINIZING 3.6 mIU/mL 12/24/2021 [facility] HORMONE 9:32 AM CDT LABORATORY-[facility] TRAL LABORATORY Specimen Anatomical Collection Method / Collection Time Recei uli Time (Source) Location / Volume Laterality Blood BLOOD SPECIMEN / Venipuncture / 12/23/2021 9:46 2021 9:46 Unknown Unknown AM CDT AM CDT Narrative [facility] LABORATORY-CENTRAL LABORAT ORY - 12/24/2021 9:32 AM CDT ? Female: ??Follicular ? (2.4-6.6) ?Ovulatory Peak ? (9.1-74.2) ?Luteal ? (0.9-9.3) ?Post Menopausal ?(10.4-64.6) ? Male: ? (1.1-8.7) ?? Merline Barrera MD CHEMISTRY Performing Organization Address City/State/ZIP Code Phon e Number [facility] [address] [place] [address] LABORATORY-[facility] 2000 LABORATORY from Last 3 Months Insurance Payer Benefit Plan / Subscriber ID Effective Dates Phone Addre ss Type Group [facility] [facility] [id number] 2021-Present [address] [place] [address] [address] (Home) [address] [place] [address] Advance Directives Latest Code Status on File Code Status Date Activated Date Inactivated Comments Full Code 07/22/2021 8:36 AM 07/22/2021 12:45 PM Question Answer Comments Code Status Discussion: Discussed Code Status History Code Status Date Activated Date Inactivated Comments Full Code 07/01/2021 9:19 PM 07/03/2021 12:20 PM Question Answer Comments Code Status Discussion: Reviewed Preferences Full Code 02/17/2021 12:31 PM 02/17/2021 5:48 PM Question Answer Comments Code Status Discussion: Per Existing Order Full Code 10/01/2020 9:10 AM 10/01/2020 1:48 PM Question Answer Comments Code Status Discussion: Discussed Full Code 12/26/2018 9:16 AM 12/29/2018 3:39 PM Question Answer Comments Code Status Discussion: Not Discussed Care Teams Silver Lap 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
--- OUTSIDE RECORDS SUMMARY | 2022-03-16 09:13 | XMS_ITS | Encounter Summary ---
:1990 Author Organization [facility] Address [address] [place] [address] Care Team Providers Name Role Phone Kilo Kovacs MD Primary Care Provider Dell Urbina [facility] - Unavailable [phone] Reason for Referral (Routine) - Closed Specialty Diagnoses / Procedures Referred By Contact Refer red To Contact Procedures [facility] 1999 Diet: Regular [address] [phone] Referral ID Status Reason Start Date Expiration Date Visits Requ ested Visits Authorized [id number] Closed 11/15/2012 05/14/2013 1 1 (Routine) - Closed Specialty Diagnoses / Procedures Referred By Contact Refer red To Contact Procedures [facility] 2000 Activity as tolerated [address] [place] [address] 9 Referral ID Status Reason Start Date Expiration Date Visits Requ ested Visits Authorized [id number] Closed 11/15/2012 05/14/2013 1 1 (Routine) - Closed Specialty Diagnoses / Procedures Referred By Contact Refer red To Contact [facility] [address] [place], [place] [address] 9 Referral ID Status Reason Start Date Expiration Date Visits Requ ested Visits Authorized [id number] Closed 11/15/2012 05/14/2013 1 1 Scheduling Instructions If your follow up appointment is not alr miracle scheduled, CALL today or tomorrow to schedule it. Question Answer Which physician? KILO KOVACS [[id number]] Provider / Clinic Phone Number? Dell Comments Keep next scheduled clinic appointment o n 11/22/2012. (Routine) - Closed Specialty Diagnoses / Procedures Referred By Contact Refer red To Contact Procedures [facility] 1999 [address]charge [address] [place], [place] [address] 9 Referral ID Status Reason Start Date Expiration Date Visits Requ ested Visits Authorized [id number] Closed 11/15/2012 05/14/2013 1 1 Encounter Details Date Type Department Care Team Description 11/15/2012 Hospital Encounter [facility] [place] Oscar Tillman, Dysuria in [address] [place] [address] Karlos Roman [address] [phone] [place] [address] Social History Tobacco Use Types Packs/Day Years Used Date Smoking Tobacco: Never Smokeless Tobacco: Never Sex Assigned at Date Recorded Not on file documented as of this encounter Last Filed Vital Signs Vital Sign Reading Time Taken Comments Blood Pressure 111/74 11/15/2012 3:28 PM CDT Pulse 80 11/15/2012 3:28 PM CDT Temperature 36.8 ??C (98.2 ??F) 11/15/2012 3:28 PM CDT Respiratory Rate 18 11/15/2012 3:28 PM CDT Oxygen Saturation - - Inhaled Oxygen Concentration - - Weight 108.9 kg (240 lb) 11/15/2012 3:28 PM CDT Height 157.5 cm (5' 2) 11/15/2012 3:28 PM CDT Body Mass Index 43.9 11/15/2012 3:28 PM CDT documented in this encounter Discharge Instructions Discharge InstructionsStlauren De La Cruz RN - 11/15/2012 5:00 PM CDT Discharge Procedure Orders Activity as tolerated Discharge Disposition? Returning Home/Self Care Expected discharge date? 11/15/2012 Diet: Regular Make sure to drink 8-10 glasses of water/fluid each day. Follow Up Keep next scheduled clinic appointment on 11/22/2012. If your follow up appointment is not already scheduled, CALL today or tomorrow to schedule it. Which Provider? KILO KOVACS [[id number]] Provider / Clinic Phone Number? Dell Victor Akin Stahl was seen in Labor and Delivery on 11/15/2012 for pain. At that time her heartrate tracing was appropriate for gestational age. Lab Results: UA negative Her cervix was close/thick/ballotable Medications for use at home: continue taking PNV as before. Discharge Plan: Home, Keep next scheduled appointment. IV access removed: N/A If you smoke, you're advised to quit. CALL YOUR PHYSICIAN/TECHNICAL SERVICES ANALYST FOR QUESTIONS/CONCERNS, OR ANY OF THE FOLLOWING SYMPTOMS: ?? Fluid leaking from your vagina ?? Decreased movement ?? Temperature over 100.4 orally ?? Bright red vaginal bleeding ?? More than 4 contractions per hour before 36 weeks ?? Pain or burning on urination ?? Contractions which are every 5 minutes for at least one hour after 36 weeks ?? Increased swelling, visual changes, headaches, or upper abdominal pain THE FOLLOWING INSTRUCTIONS HAVE BEEN REVIEWED WITH THE CLIENT: Valuables/Belongings returned: Yes Time of Discharge: 4:59 PM Mode: Ambulatory Accompanied by: Tomi (LAY), friend Please bring this sheet to your next MD/CNM appointment D/C Instructions ScanScanned Doc - 11/17/2012 9:00 AM CDT documented in this encounter Medications at Time of Discharge Medication Sig Dispensed Refills Start Date End Date rtpmlsvbqwihk-bdqqahbh-iy Take 1-2 Tabs by 30 Tab 0 05/201212/05/2012 talbital (FIORICET/ESGIC) mouth every 4 (four) 50-325-40 mg Oral Tab hours as needed (headache). documented as of this encounter Progress Notes Oscar Tillman MD - 11/15/2012 5:55 PM CDT Hx as per RN. Pelvic pressure and dysuria at 29 weeks x 2 days. UA neg. Mild dehydration. NST reactive for gest. Stable. Additional applicable diagnoses as outlined in updated Problem List. Discharged to home with instructions and precautions. Oscar Tillman MD Alla De La Cruz RN - 11/15/2012 5:12 PM CDT Pt given written and oral d/c instructions via Fred, expressed understanding. Pt ambulated off unit with SO, condition stable. Belongings with pt. Alla De La Cruz RN - 11/15/2012 3:34 PM CDT Pt is a EDC 01/29/2013 who presents to unit with c/o pain since yesterday. Pt is northern irish speaking, Martti used for translation. EFMx2 applied with verbal consent, education provided. Pt abdomen palpates soft, non-tender. Pt denies any complications, denies any ROM, denies any bleeding. Pt states she had very strong pain yesterday and then today the pain is a little less. She states shehas also been feeling some pressure today. Pt states it is more painful to void and that she feels like she needs to void more often. UA collected and sent. Dr. Tillman notified of pt arrival. Will update MD with lab results and FHTs. POC discussed with pt, expressed understanding. documented in this encounter Plan of Treatment Scheduled Referrals Name Type Priority Associated Diagnoses Order S chedule Follow Up Follow Up Routine Ordered: 2012 documented as of this encounter Procedures Procedure Name Priority Date/Time Associated Comments Diagnosis URINALYSIS W/ STAT 11/15/2012 3:10 PM Results for this MICROSCOPY AND/OR CDT procedure are in UC, IF INDICATED the results section. documented in this encounter Results Urinalysis w/ Microscopy and/or UC (11/15/2012 3:10 PM CDT) [facility] Method Time Signature PH URINE 6.0 4.5 - 8.0 11/15/2012 [facility] 3:22 PM CDT LABORATORY SP.GRAVITY, 1.025 1.015 - 11/15/2012 [facility] UA 1.025 3:22 PM CDT LABORATORY GLUCOSE, UA Negative Negative 11/15/2012 [facility] mg/dL 3:22 PM CDT LABORATORY KETONE, UA Negative Negative 11/15/2012 [facility] mg/dL 3:22 PM CDT LABORATORY BILIRUBIN, UA Negative Negative 11/15/2012 [facility] 3:22 PM CDT LABORATORY UROBILINOGEN, 0.2 0.2 - 1.0 11/15/2012 [facility] UA E.U/dl 3:22 PM CDT LABORATORY PROTEIN, UA Negative Negative 11/15/2012 [facility] mg/dL 3:22 PM CDT LABORATORY OCCULT BLOOD, Negative Negative, 11/15/2012 [facility] UA Trace, 3:22 PM CDT LABORATORY TRACE-LYSED, TRACE-INTACT WBC ESTERASE, Negative Negative, 11/15/2012 [facility] UA Trace 3:22 PM CDT LABORATORY NITRITE, UA Negative Negative 11/15/2012 [facility] 3:22 PM CDT LABORATORY Specimen Anatomical Collection Method Collection Time Receive d Time (Source) Location / / Volume Laterality Urine specimen URINE SPECIMEN / Collection / 11/15/2012 3:10 PM 3:18 (specimen) Unknown Unknown CDT PM CDT Oscar Tillman MD MICROBIOLOGY ORDERABLE Performing Organization Address City/State/ZIP Code Phon e Number [facility] [address] [place] [address] [facility] [phone] documented in this encounter Visit Diagnoses Not on filedocumented in this encounter Administered Medications Inactive Administered Medications - up to 3 most recent administrations Medication Order MAR Action Action Date Dose Rate Site acetaminophen (TYLENOL) tablet Given 11/15/2012 3:22 PM CDT 650 mg 325-650 mg 325-650 mg (1-2 tablet), oral, EVERY 4 HOURS NEEDED, Starting on Wed11/15/12 at 1513, Until Wed11/15/12 at 2328, Pain ACETAMINOPHEN 325 MG TABLET 1 dose, Starting on Wed11/15/12 at 1523, Until 11/03 at 1522 documented in this encounter Active and Recently Administered Medications Times are shown in CDT. PRN Medication Order 11/13/2012 11/14/2012 11/15/2012 acetaminophen (TYLENOL) tablet 325-650 mg (CANCELED) 1522 (Given - Provider: Alla De La Cruz RN) 1-2 Tab = 325-650 mg, Oral, EVERY 4 HOUR S NEEDED, Starting Wed11/15/12 at 1513, Until Wed11/15/12 at 2328, Pain documented in this encounter Care Teams Bottoming Room Supervisor Relationship Specialty Start Date End Date Kilo Kovacs MD PCP - General Obstetrics/Gynecolog 11/15/12 02/18/22 y Dell Urbina PCP - Primary Care 11/15/1202/03 [facility] - [address] [facility] [place] [address] documented as of this encounter
[2022-03-16 09:19] LABS: Chloride* 106 mmol/L (96-114); Potassium* 3.9 mmol/L (3.6-5.1); Sodium* 138 mmol/L (135-149)
[2022-03-16 09:22] LABS: Creatinine* 0.6 mg/dL (0.5-1.5); Est. Creatinine Clearance* 115.16; Estimated Glomerular Filt Rate 121 ml/min
[2022-03-16 09:23] LABS: Blood Urea Nitrogen* 8 mg/dL (5-24); Calcium* 9.1 mg/dL (8.4-10.6); Carbon Dioxide* 26 mmol/L (20-32); Glucose* 96 mg/dL (60-115)
[2022-03-16 09:26] LABS: C Reactive Protein* 2.7 mg/dL (0.5-1.0)
--- NOTE | 2022-03-16 09:27 | ED_ITS ---
HPI - Abdominal Pain General Chief Complaint: Abdominal Pain Stated Complaint: 6 weeks , abdominal pain Time Seen by Provider: 03/16/22 08:15 History of Present Illness HPI narrative: 31-year-old woman presenting to the emergency department with complaint of abdominal pain. She is accompanied by her significant other. Does have a history of gastroparesis and diverticulitis. She has been without her metoclopramide for 3 days and feels that at least the upper abdominal pain that she is experiencing would potentially be related. Was not sure she should be taking this in . She has also been constipated at least not having had a bowel movement for 3 days as well. She is 6 weeks . No ultrasound done yet. Has an upcoming OB appointment this week yet. She does have a history of a miscarriage in is worried about that. No fever. No dysuria. Pain is somewhat crampy. No vaginal bleeding. Related Data Home Medications Medication Instructions Recorded Confirmed omeprazole 40 mg capsule,delayed mg 01/03/22 03/17/22 release ondansetron 4 mg disintegrating mg 01/03/22 03/17/22 tablet Benadryl 03/16/22 03/17/22 gabapentin 03/16/22 03/17/22 gabapentin 03/16/22 03/17/22 prenat.vits,kristyn,vcv-jmru-obyiz 1 tab PO QDAY 03/17/22 03/17/22 Allergies Allergy/AdvReac Type Severity Reaction Status Date / Time No Known Drug Allergies Allergy Verified 03/24/22 14:01 Review of Systems Status of ROS Reports: 10 or more systems reviewed and unremarkable except as noted in History and below [facility] Medical History (Updated 03/31/22 @ 00:01 by ) Gastritis Hypokalemia Social History Smoking Status: Current some day smoker How often do you have a drink containing alcohol: never AUDIT-C Alcohol total score: 0 Non-prescribed substance use: denies use Little interest or pleasure in doing things: several days Feeling down, depressed, or hopeless: several days Exam Narrative: Exam Narrative: Pleasant. NAD. Elaborately done nails. Breathing easily. Lungs are clear. Oropharynx is moist. Abdomen is overweight soft. Little tender in the epigastrium centrally and then more so in the left lower quadrant almost more adnexal area; moderately tender here. Cardiovascular with elevated rate and rhythm no MR G. Extremities are without edema. Skin warm and dry without rash. Various tattoos. Const: Vital Signs, click to edit/add: Vital Signs - 24 hr 03/16/22 07:53 Temperature 97.4 F L Pulse Rate [Pulse Oximeter] 100 Respiratory Rate 18 Blood Pressure [Ri ght Upper Arm] 135/88 Documenting provider has reviewed patient's vital signs: yes Course Vital Signs Vital signs: Initial Vital Signs Temperature 97.4 F L 03/16/22 07:53 Temperature Source Temporal Artery Scan 03/16/22 07:53 Pulse Rate 100 03/16/22 07:53 Respiratory Rate 18 03/16/22 07:53 Blood Pressure 135/88 03/16/22 07:53 Blood Pressure Mean 103 03/16/22 07:53 Blood Pressure Position Supine 03/16/22 07:53 Vital Signs Temperature 97.4 F L 03/16/22 07:53 Pulse Rate 100 03/16/22 07:53 Respiratory Rate 18 03/16/22 07:53 Blood Pressure 135/88 03/16/22 07:53 Temperature 97.4 F L 03/16/22 07:53 Pulse Rate 100 03/16/22 07:53 Respiratory Rate 18 03/16/22 07:53 Blood Pressure 135/88 03/16/22 07:53 MDM - Abdominal Pain MDM Narrative Medical decision making narrative: I think it's worth checking labs and doing ultrasound. Fluids will probably help. Further imaging pending results and improvement. Ordered for IV fluids, morphine and metoclopramide. Overall is improved. Transvaginal ultrasound discussed with linux system admin and overread by radiology as below ? FINDINGS: A small gestational sac is present within the endometrial canal with a mean sac diameter of 8.6 millimeters corresponding to a 5 week 3 day gestation. 3 millimeter yolk sac is present. No pole. No ectopic . No pelvic free fluid. Ovaries normal. IMPRESSION: 5 week 3 day gestational sac in the endometrial canal without pole. No ectopic. Follow-up ultrasound in 11-14 days recommended. I think the majority of symptoms can be explained by gastroparesis and possibly some degree of constipation. Labs are overall reassuring. I think less likely diverticulitis. Lab Data Attestation: I reviewed the patient's lab results. Labs: Lab Results 03/16/22 03/16/22 03/16/22 Range/Units 08:08 08:55 08:55 WBC 9.47 (4.50-11.00) K/uL RBC 4.62 (4.00-5.20) m/uL Hgb 13.6 (12.0-16.0) gm/dL Hct 41.0 (33.0-51.0) % MCV 89 (80-100) fL MCH 29 (26-34) pg MCHC 33 (32-36) gm/dL RDW Coeff of Cira 13.5 (11.5-15.5) % Plt Count 342 (140-440) K/uL Neut % (Auto) 73.0 H (42.0-72.0) % Lymph % (Auto) 18.9 L (20-44) % [place] % (Auto) 7.2 (0.0-11.0) % Eos % (Auto) 0.5 (0.0-7.0) % Baso % (Auto) 0.2 (0.0-3.0) % Neut # (Auto) 6.90 (1.7-7.0) K/uL Lymph # (Auto) 1.80 (0.90-2.90) K/uL [place] # (Auto) 0.70 (0.00-0.90) K/UL Eos # (Auto) 0.05 (0.00-0.50) K/uL Baso # (Auto) 0.02 (0.00-0.30) K/uL Abs Immat Gran (auto) 0.02 (0.00-0.30) K/uL Imm/Tot Granulo (auto) 0.2 % Sodium 138 (135-149) mmol/L Potassium 3.9 (3.6-5.1) mmol/L Chloride 106 (96-114) mmol/L Carbon Dioxide 26 (20-32) mmol/L BUN 8 (5-24) mg/dL Creatinine 0.6 (0.5-1.5) mg/dL Estimated Creat Clear 115.16 Estimated GFR 121 ml/min Glucose 96 (60-115) mg/dL Calcium 9.1 (8.4-10.6) mg/dL Total Bilirubin (0.1-1.5) mg/dL Direct Bilirubin (0.0-0.5) mg/dL AST (12-35) U/L ALT (4-35) U/L Alkaline Phosphatase (40-150) U/L C-Reactive Protein 2.7 H (0.5-1.0) mg/dL Total Protein (6.0-8.3) g/dL Albumin (3.3-5.0) g/dL HCG, Qual (Negative) Urine Color Yellow (Yellow) Urine Appearance Clear (Clear) Urine pH 5.5 (5.0-8.5) Ur Specific [place] 1.020 (1.000-1.030) Urine Protein Negative (Negative) Urine Glucose (UA) Negative (Negative) Urine Ketones 2+ A (Negative) Urine Blood Negative (Negative) Urine Nitrite Negative (Negative) Urine Bilirubin 1+ A (Negative) Urine Urobilinogen 0.2 (0.2-1.0) Ur Leukocyte Esterase Negative (Negative) Urine RBC 0-2 (0-2) Urine WBC 0-2 (0-5) Ur Squamous Epith Cells Few (None-Few) Urine Bacteria None (None) 03/16/22 03/16/22 Range/Units 08:55 08:55 WBC (4.50-11.00) K/uL RBC (4.00-5.20) m/uL Hgb (12.0-16.0) gm/dL Hct (33.0-51.0) % MCV (80-100) fL MCH (26-34) pg MCHC (32-36) gm/dL RDW Coeff of Cira (11.5-15.5) % Plt Count (140-440) K/uL Neut % (Auto) (42.0-72.0) % Lymph % (Auto) (20-44) % [place] % (Auto) (0.0-11.0) % Eos % (Auto) (0.0-7.0) % Baso % (Auto) (0.0-3.0) % Neut # (Auto) (1.7-7.0) K/uL Lymph # (Auto) (0.90-2.90) K/uL [place] # (Auto) (0.00-0.90) K/UL Eos # (Auto) (0.00-0.50) K/uL Baso # (Auto) (0.00-0.30) K/uL Abs Immat Gran (auto) (0.00-0.30) K/uL Imm/Tot Granulo (auto) % Sodium (135-149) mmol/L Potassium (3.6-5.1) mmol/L Chloride (96-114) mmol/L Carbon Dioxide (20-32) mmol/L BUN (5-24) mg/dL Creatinine (0.5-1.5) mg/dL Estimated Creat Clear Estimated GFR ml/min Glucose (60-115) mg/dL Calcium (8.4-10.6) mg/dL Total Bilirubin 0.8 (0.1-1.5) mg/dL Direct Bilirubin 0.2 (0.0-0.5) mg/dL AST 20 (12-35) U/L ALT 17 (4-35) U/L Alkaline Phosphatase 71 (40-150) U/L C-Reactive Protein (0.5-1.0) mg/dL Total Protein 7.4 (6.0-8.3) g/dL Albumin 4.3 (3.3-5.0) g/dL HCG, Qual Positive (Negative) Urine Color (Yellow) Urine Appearance (Clear) Urine pH (5.0-8.5) Ur Specific [place] (1.000-1.030) Urine Protein (Negative) Urine Glucose (UA) (Negative) Urine Ketones (Negative) Urine Blood (Negative) Urine Nitrite (Negative) Urine Bilirubin (Negative) Urine Urobilinogen (0.2-1.0) Ur Leukocyte Esterase (Negative) Urine RBC (0-2) Urine WBC (0-5) Ur Squamous Epith Cells (None-Few) Urine Bacteria (None) Discharge Plan Discharge Clinical Impression: Gastroparesis, at early stage, Abdominal pain Patient Disposition: Home w/ Parent or Adult Condition: Stable Additional Instructions: Focus on hydration. Over the next few days you might want to take up to 3 tbsp of MiraLax or equivalent by noon, each in 8 or more oz of liquid. Refill your metoclopramide. Return for persistent and increasing pain, , fever. Please follow-up at the end of this week in OBGYN Clinic as planned. Conc?ntrese en la hidrataci?n. Jamal los pr?ximos d?as, es posible que desee arline hasta 3 cucharadas de MiraLax o equivalente antes del mediod?a, cada arabella en 8 o m?s onzas de l?quido. Rellene beltran metoclopramida. Retorno para dolor persistente y creciente, fiebre. Por favor, che un seguimiento al final de esta semana en la Cl?[facility] seg?n lo planeado. Prescriptions: No Action prenat.vits,kristyn,ckf-xzjo-lnunw Tablet 1 tab PO QDAY omeprazole 40 mg capsule,delayed release(DR/EC) ondansetron 4 mg tablet,disintegrating Benadryl gabapentin gabapentin Follow Up/Referrals: Merline Barrera MD [Primary Care Provider] - Stand Alone Forms: [facility] Info Instructions
[2022-03-16 09:37] LABS: Albumin* 4.3 g/dL (3.3-5.0)
[2022-03-16 09:40] LABS: Alanine Aminotransferase* 17 U/L (4-35); Alkaline Phosphatase* 71 U/L (40-150); Aspartate Amino Transferase* 20 U/L (12-35); Bilirubin Direct* 0.2 mg/dL (0.0-0.5); Bilirubin Total* 0.8 mg/dL (0.1-1.5); Total Protein* 7.4 g/dL (6.0-8.3)
[2022-03-16] MEDS: METOCLOPRAMIDE HCL 10 MG in 0.9 % SODIUM CHLORIDE 100 ml 100 ML 306 MG IVPB (09:51)
[2022-03-16 12:20] LABS: HCG Qualitative Serum* Positive (Negative)
== END 2022-03-16 11:19 | disposition home or self-care (01) ==
PROVIDERS: Family Medicine; Emergency Provider Family Medicine; PCP Family Medicine
DX: K31.84 Gastroparesis (principal); Z3A.01 Less than 8 weeks gestation of pregnancy
CPT/HCPCS: 36415; 76817; 80048; 80076; 81001; 84702; 84703; 85025; 86140; 96365; 96375; 99284; J2270; J2765; J7030

== ENCOUNTER 2022-03-31 15:38 | Outpatient (CLI) | payer MEDICAID, SELFPAY ==
[2022-03-31 18:52] LABS: Chlamydia DNA Amplified* NOT DETECTED (No Detected); GC DNA Amplified* NOT DETECTED (No Detected)
[2022-04-03 08:45] LABS: Varicella-Zoster Virus Ab, IgG 731.7 IV
== END 2022-03-31 15:39 | disposition home or self-care (01) ==
PROVIDERS: PCP Family Medicine; Visit Provider Advanced Practice Midwife
DX: Z34.91 Encounter for supervision of normal pregnancy, unspecified, first trimester (principal); Z3A.01 Less than 8 weeks gestation of pregnancy
CPT/HCPCS: 76817; 86787; 86900; 86901; 87491; 87591

== ENCOUNTER 2022-04-06 14:10 | Emergency (ER) | payer MEDICAID, SELFPAY ==
[2022-04-06 14:54] VITALS: BP 128/89; PULSE 89; RESP 18; TEMP 36.3; O2SAT 96; BMI 45.1
[2022-04-06 15:12] LABS: Appearance Urine Turbid (Clear); Bilirubin Urine Negative (Negative); Blood Urine Negative (Negative); Color Urine Yellow (Yellow); Glucose Urine Negative (Negative); Ketones Urine Negative (Negative); Leukocyte Esterase Urine Negative (Negative); Nitrite Urine Negative (Negative); Protein Urine Negative (Negative); Specific Gravity Urine >= 1.030 (1.000-1.030); Urobilinogen Urine 0.2 (0.2-1.0)
[2022-04-06 15:23] LABS: Bacteria Urine Few; RBC Urine 0-2 (0-2); Squamous Epithelial Cell Urine Few (None-Few); WBC Urine 0-2 (0-5)
--- NOTE | 2022-04-06 16:14 | ED.GENADULT ---
HPI - General Adult General Date Seen: 04/06/22 Chief complaint: Urogenital Problems, Female Stated complaint: Urinary Issues 8w Time Seen by Provider: 04/06/22 15:15 Source: patient History of Present Illness HPI narrative: Patient is a 31-year-old woman who presents at 8 weeks gestation initially saying that she is having dysuria but further clarification is that she is finding it difficult to urinate, saying that when she feels like she needs to go only little bit comes out. She further tells me that she is very worried about the baby, she says that she is leaking ?fluid, and she is worried that she is losing the . She is not having any bleeding. She had a loss at 8 months, and she is very worried about this . She Italian speaking, the history is obtained through the assistance of an paraprofessional interpreter. She is not really having dysuria per se. She initially complained of some suprapubic pain. She has not had any diarrhea or fevers. She does say she has been vomiting every day. She was seen here on March 16 and had an ultrasound at that time which confirmed a 5 week 3 day which was consistent roughly with her dates. She says she has not been seen since then but has an upcoming OB appointment for follow-up. Related Data Home Medications Medication Instructions Recorded Confirmed omeprazole 40 mg capsule,delayed mg 01/03/22 03/31/22 release ondansetron 4 mg disintegrating mg 01/03/22 03/31/22 tablet Benadryl 03/16/22 03/31/22 gabapentin 03/16/22 03/31/22 gabapentin 03/16/22 03/31/22 prenat.vits,kristyn,[id number] 1 tab PO QDAY 03/17/22 03/31/22 Previous Rx's Medication Instructions Recorded enoxaparin 40 mg/0.4 mL 40 mg (0.4 mL) subcut QDAY #36 mL 03/31/22 subcutaneous syringe cephalexin 500 mg capsule 500 mg PO TID #15 caps 04/06/22 ondansetron 4 mg disintegrating 4 mg PO Q8H PRN nausea and 04/06/22 tablet vomiting #10 tabs Allergies Allergy/AdvReac Type Severity Reaction Status Date / Time No Known Drug Allergies Allergy Verified 03/31/22 14:36 Review of Systems Status of ROS: Reports: 10 or more systems reviewed and unremarkable except as noted in History and below and 6 or more systems reviewed and unremarkable except as noted in History and below PFSH PFSH Medical History Gastritis Hypokalemia Social History Narrative: SOCIAL Education: [] Work: [] Partner: [] Lives with: [] Pets: [] Abuse: [Denies past/present] Special Diet: [Denies] Ok with a blood transfusion: [yes] Culture or synagogue beliefs: [denies] RISK FACTORS Exercise Times/wk: [] Depression/Anxiety: [] NARGIS: [] PHQ 9: [] Seat Belt Use: [Routinely] Smoking: [Denies past/present] Alcohol/day: [Denies while ] Caffeine: [] Drug Use: [Denies past/present] Chicken Pox: [Yes as a child] MRSA: [Denies] Smoking Status: Current some day smoker How often do you have a drink containing alcohol: never AUDIT-C Alcohol total score: 0 Non-prescribed substance use: denies use Little interest or pleasure in doing things: several days Feeling down, depressed, or hopeless: several days Exam Narrative: Exam Narrative: Vital signs as noted above. In general, an alert, nontoxic woman. Initially tearful, complaining about quite a bit of pain. Head: Normocephalic, atraumatic. Eyes: Pupils are equal reactive. Extraocular movements are full. Conjunctivae are normal. ENT: Mucous membranes are moist. Throat is normal. Neck: Supple without lymphadenopathy. Heart: Regular rate and rhythm. No murmur or rub. Lungs: Clear bilaterally. No increased work of breathing, crackles or wheezes. Abdomen: Soft and nontender. No organomegaly. Extremities: Well perfused. No edema. No calf tenderness. Pulses intact. Neurologic: Patient is alert and oriented to person and place. Speech is fluent. Face is symmetric. Moves all extremities equally. Affect: Tearful. Skin: Warm and dry. Well perfused. Const: Vital Signs, click to edit/add: Vital Signs - 24 hr 04/06/22 14:54 Temperature 97.3 F L Pulse Rate [Right Pulse Oximeter] 89 Respiratory Rate 18 Blood Pressure [Ri ght Upper Arm] 128/89 Pulse Oximetry 96 Oxygen Delivery Me thod Room Air Documenting provider has reviewed patient's vital signs: yes Course Course Hospital Course: We did obtain a urinalysis. I use the bedside ultrasound to evaluate the . We were able to identify a fetus and identify cardiac activity. She was thrilled with this, very relieved, and is feeling much better. My sense is that she was primarily concerned about the as once we confirm that everything looks okay with the her complaints about abdominal pain vanished. Her urine is negative aside from bacteriuria. I am going to treat this given her gravid state. However, in the absence of significant abdominal tenderness, fever, or other toxicity, I do not think she needs further workup today. I think it is reasonable to let her follow-up as planned. Did recommend that if she has worsening symptoms, develops significant abdominal pain, new discharge, fever etcetera that she return for further evaluation. She is comfortable with this. Vital Signs Vital signs: Initial Vital Signs Temperature 97.3 F L 04/06/22 14:54 Temperature Source Temporal Artery Scan 04/06/22 14:54 Pulse Rate 89 04/06/22 14:54 Respiratory Rate 18 04/06/22 14:54 Blood Pressure 128/89 04/06/22 14:54 Blood Pressure Mean 102 04/06/22 14:54 Blood Pressure Position Sitting 04/06/22 14:54 Pulse Oximetry 96 04/06/22 14:54 Oxygen Delivery Method 04/06/22 14:54 Vital Signs Temperature 97.3 F L 04/06/22 14:54 Pulse Rate 89 04/06/22 14:54 Respiratory Rate 18 04/06/22 14:54 Blood Pressure 128/89 04/06/22 14:54 Pulse Oximetry 96 04/06/22 14:54 Oxygen Delivery Method 04/06/22 14:54 Temperature 97.3 F L 04/06/22 14:54 Pulse Rate 89 04/06/22 14:54 Respiratory Rate 18 04/06/22 14:54 Blood Pressure 128/89 04/06/22 14:54 Pulse Oximetry 96 04/06/22 14:54 Oxygen Delivery Method 04/06/22 14:54 Medical Decision Making Lab Data Labs: Lab Results 01/02/23 Range/Units 15:00 Urine Color Yellow (Yellow) Urine Appearance Turbid A (Clear) Urine pH 6.0 (5.0-8.5) Ur Specific [place] >= 1.030 (1.000-1.030) Urine Protein Negative (Negative) Urine Glucose (UA) Negative (Negative) Urine Ketones Negative (Negative) Urine Blood Negative (Negative) Urine Nitrite Negative (Negative) Urine Bilirubin Negative (Negative) Urine Urobilinogen 0.2 (0.2-1.0) Ur Leukocyte Esterase Negative (Negative) Urine RBC 0-2 (0-2) Urine WBC 0-2 (0-5) Ur Squamous Epith Cells Few (None-Few) Urine Bacteria Few A (None) Discharge Plan Discharge Clinical Impression: Bacteriuria, Patient Disposition: Home, Self-Care Condition: Improved Instructions: Urinary Tract Infection in (ED) Additional Instructions: Antibiotic as prescribed. Follow-up with OB as planned. If you have worsening symptoms, new symptoms such as fever, unusual discharge, etcetera, return at any time for re-evaluation. Zofran if needed for vomiting. Usa el antibiotico. Prescriptions: New cephalexin 500 mg capsule 500 mg PO TID Qty: 15 0RF ondansetron 4 mg tablet,disintegrating 4 mg PO Q8H PRN (Reason: nausea and vomiting) Qty: 10 0RF No Action prenat.vits,kristyn,[id number] Tablet 1 tab PO QDAY enoxaparin 40 mg/0.4 mL syringe 40 mg subcut QDAY Qty: 36 2RF omeprazole 40 mg capsule,delayed release(DR/EC) ondansetron 4 mg tablet,disintegrating Benadryl gabapentin gabapentin Follow Up/Referrals: Merline Barrera MD [Primary Care Provider] - Stand Alone Forms: [facility] Info Instructions
== END 2022-04-06 16:29 | disposition home or self-care (01) ==
PROVIDERS: Emergency Provider Emergency Medicine; PCP Family Medicine
DX: O23.41 Unspecified infection of urinary tract in pregnancy, first trimester (principal); Z3A.01 Less than 8 weeks gestation of pregnancy
CPT/HCPCS: 81001; 87086; 99283

== ENCOUNTER 2022-04-28 14:29 | Outpatient (CLI) | payer MEDICAID, SELFPAY ==
[2022-04-28 20:52] LABS: Hepatitis B Surface Antigen* Negative (Negative)
[2022-04-28 20:53] LABS: Total Protein Urine 19 mg/dL
[2022-04-28 20:54] LABS: Creatinine Urine 283.7 mg/dL
[2022-04-28 21:01] LABS: HIV 1/2/P24 Combo Screen* Negative (Negative)
[2022-04-28 21:09] LABS: Hepatitis C Virus Antibody* Negative (Negative)
[2022-05-01 01:33] LABS: Rapid Plasma Reagin (RPR) Non Reactive (Non Reactive)
[2022-05-01 03:13] LABS: Rubella Antibody IgG 33.5 IU/mL
== END 2022-04-28 14:30 | disposition home or self-care (01) ==
PROVIDERS: Advanced Practice Midwife; PCP Family Medicine; Visit Provider Obstetrics & Gynecology
DX: Z34.91 Encounter for supervision of normal pregnancy, unspecified, first trimester (principal); E66.9 Obesity, unspecified; I10 Essential (primary) hypertension; N39.0 Urinary tract infection, site not specified; Z3A.11 11 weeks gestation of pregnancy
CPT/HCPCS: 82570; 84156; 86592; 86703; 86762; 86803; 87086; 87340

== ENCOUNTER 2022-05-26 14:45 | Outpatient (CLI) | payer MEDICAID, SELFPAY ==
[2022-05-30 11:29] LABS: Dating Ultrasound; Family Hx Neural Tube Defect No; Insulin Req Maternal Diabetes No; Maternal Age At Delivery 34.6 yr; Maternal Screen Interpretation Screen Neg; Number of Fetuses Singleton; Patient's AFP 43 ng/mL; Patient's DIA 96 pg/mL; Smoking No
[2022-06-12 11:25] LABS: Client Provid Current Smoking no; Client Provid Diabetic Status no
[2022-06-12 12:38] LABS: Client Provided Valp/Carb No
[2022-06-12 12:39] LABS: Client Provid Prev TrisomyPreg No; Client Provided Fam Hx of NTD No; Client Provided InVitro Fertil No
== END 2022-05-26 14:46 | disposition home or self-care (01) ==
LOC: NFLDREF 14:48
PROVIDERS: PCP Family Medicine; Visit Provider Obstetrics & Gynecology
DX: Z34.92 Encounter for supervision of normal pregnancy, unspecified, second trimester (principal); Z3A.15 15 weeks gestation of pregnancy
CPT/HCPCS: 81511

== ENCOUNTER 2022-07-24 19:42 | Emergency (ER) | payer MEDICAID, SELFPAY ==
[2022-07-24 19:48] VITALS: BP 116/70; PULSE 83; RESP 14; TEMP 36.2; O2SAT 98; BMI 44.1
[2022-07-24] MEDS: 0.9 % SODIUM CHLORIDE 1000 ml 1,000 ML IV (20:44)
[2022-07-24] MEDS: ONDANSETRON 2 MG/ML inj 4 MG IVP (20:44)
[2022-07-24] MEDS: CYCLOBENZAPRINE HCL 10 MG TABLET PO (20:49)
[2022-07-24 21:04] LABS: Basophils Percent Auto 0.2 % (0.0-3.0); Eosinophils Percent Auto 0.2 % (0.0-7.0); Hematocrit 40.4 % (33.0-51.0); Hemoglobin* 13.3 gm/dL (12.0-16.0); Immature Granulocytes Pct Auto 0.3 %; Lymphocytes Percent Auto 22.6 % (20-44); Mean Corpuscular HGB Conc 33 gm/dL (32-36); Mean Corpuscular Hemoglobin 28 pg (26-34); Mean Corpuscular Volume 86 fL (80-100); Monocytes Percent Auto 6.2 % (0.0-11.0); Neutrophils Percent Auto 70.5 % (42.0-72.0); Platelet Count* 365 K/uL (140-440); RDW Coefficient of Variation % 13.4 % (11.5-15.5); Red Blood Count 4.69 m/uL (4.00-5.20); White Blood Count* 14.31 K/uL (4.50-11.00)
[2022-07-24 21:05] LABS: Appearance Urine Clear (Clear); Bilirubin Urine 1+ (Negative); Blood Urine Negative (Negative); Color Urine Yellow (Yellow); Glucose Urine Negative (Negative); Ketones Urine 1+ (Negative); Leukocyte Esterase Urine Negative (Negative); Nitrite Urine Negative (Negative); Protein Urine Negative (Negative); Specific Gravity Urine 1.025 (1.000-1.030); Urobilinogen Urine 0.2 (0.2-1.0)
[2022-07-24 21:07] LABS: Slide Review Reflex No
--- NOTE | 2022-07-24 21:15 | ED_ITS ---
HPI - Nausea/Vomiting/Diarrhea General Chief complaint: Nausea/Vomiting Stated complaint: 6 months , Vomiting Time Seen by Provider: 07/24/22 19:50 History of Present Illness HPI Narrative: Patient is a 32-year-old woman who is approximately 6 months with her 4th . She comes in with mild abdominal pain nausea vomiting. She has had no diarrhea no fevers no chills. She has had minimal headache. No other significant symptoms. She has had no blood passed per vagina she has felt no contractions. She has felt the baby moving. Patient takes anti anxiety medicine as well as her vitamins but no other significant medications. She has not been drinking alcohol. No other complaints or symptoms are present for last 2-3 days. She describes her symptoms as moderate. She is seen with the chief accounting officer. 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 I also see that she has gestational diabetes hypertension gastric paresis a severe mood disorder she is an active smoker with chronic migraines. Related Data Home Medications Medication Instructions Recorded Confirmed prenat.vits,kristyn,[id number] 1 tab PO QDAY 03/17/22 07/22/22 enoxaparin 40 mg/0.4 mL 40 mg subcut QDAY 05/26/22 07/22/22 subcutaneous syringe diphenhydramine HCl 25 mg capsule 25 mg PO BID PRN sleep 06/23/22 07/22/22 (Benadryl) gabapentin 300 mg capsule 300 mg PO BID 06/23/22 07/22/22 metoclopramide HCl 10 mg/mL oral 10 mg PO TIDWMEAL 06/23/22 07/22/22 concentrate omeprazole 40 mg capsule,delayed mg PO QDAY 06/23/22 07/22/22 release Previous Rx's Medication Instructions Recorded ondansetron 4 mg disintegrating 4 mg PO Q8H PRN nausea and 04/06/22 tablet vomiting #10 tabs Test Strips #100 ea 06/23/22 lancets #100 ea 06/23/22 Allergies Allergy/AdvReac Type Severity Reaction Status Date / Time No Known Drug Allergies Allergy Verified 07/22/22 10:29 Review of Systems Status of ROS: Reports: 10 or more systems reviewed and unremarkable except as noted in History and below [facility] Medical History (Updated 07/24/22 @ 22:11 by Duy Jesus MD) Gastritis ?K29.70 - Gastritis, unspecified, without bleeding (ICD-10) Gestational diabetes ?O24.419 - Gestational diabetes mellitus in , unspecified control (ICD-10) Hypokalemia ?E87.6 - Hypokalemia (ICD-10) Prothrombin gene mutation ?D68.52 - Prothrombin gene mutation (ICD-10) Pulmonary embolism ?I26.99 - Other pulmonary embolism without acute cor pulmonale (ICD-10) Social History Narrative: SOCIAL Education: [] Work: [] Partner: [] Lives with: [] Pets: [] Abuse: [Denies past/present] Special Diet: [Denies] Ok with a blood transfusion: [yes] Culture or orthodox beliefs: [denies] RISK FACTORS Exercise Times/wk: [] Depression/Anxiety: [] NARGIS: [] PHQ 9: [] Seat Belt Use: [Routinely] Smoking: [Denies past/present] Alcohol/day: [Denies while ] Caffeine: [] Drug Use: [Denies past/present] Chicken Pox: [Yes as a child] MRSA: [Denies] Smoking Status: Former smoker How often do you have a drink containing alcohol: never AUDIT-C Alcohol total score: 0 Non-prescribed substance use: former substance user and marijuana (any form) Non-prescribed substance use details: THC Little interest or pleasure in doing things: several days Feeling down, depressed, or hopeless: several days Exam Narrative: Exam Narrative: EXAM GENERAL: Patient appears comfortable and well. EYES: No scleral icterus. ENT: Tympanic membranes and oropharynx normal. THYROID: no thyroid nodules or thyromegaly. LYMPH: No supraclavicular or cervical lymphadenopathy. SKIN: Visible skin seen during exam normal or with benign process only. EXT: No dependent lower extremity pedal edema. HEART: Regular rate and rhythm with no murmurs, rubs, or gallops. LUNGS: Clear to auscultation bilaterally with no crackles or wheezes. ABD: Soft, non tender, non distended. PSYCH: Good eye contact, speech is not pressured. Const: Vital Signs, click to edit/add: Vital Signs - 24 hr 07/24/22 19:48 Temperature 97.1 F L Pulse Rate [Pulse Oximeter] 83 Respiratory Rate 14 Blood Pressure [Ri ght Upper Arm] 116/70 Pulse Oximetry 98 Oxygen Delivery Me thod Room Air Course Course Hospital Course: Patient seen examined. CBC comprehensive metabolic panel pending as is UA. 1 L normal saline ordered as well as Zofran 4 mg and 10 mg of p.o. Flexeril. We did request OB assessment as well. Reevaluation(s) Reevaluation #1: OB Assessment done. Time: 22:08 Vital Signs Vital signs: Initial Vital Signs Temperature 97.1 F L 07/24/22 19:48 Temperature Source Temporal Artery Scan 07/24/22 19:48 Pulse Rate 83 07/24/22 19:48 Pulse Rhythm Regular 07/24/22 19:48 Respiratory Rate 14 07/24/22 19:48 Blood Pressure 116/70 07/24/22 19:48 Blood Pressure Mean 85 07/24/22 19:48 Blood Pressure Position Sitting 07/24/22 19:48 Pulse Oximetry 98 07/24/22 19:48 Oxygen Delivery Method Room Air 07/24/22 19:48 Vital Signs Temperature 97.1 F L 07/24/22 19:48 Pulse Rate 83 07/24/22 19:48 Respiratory Rate 14 07/24/22 19:48 Blood Pressure 116/70 07/24/22 19:48 Pulse Oximetry 98 07/24/22 19:48 Oxygen Delivery Method Room Air 07/24/22 19:48 Temperature 97.1 F L 07/24/22 19:48 Pulse Rate 83 07/24/22 19:48 Respiratory Rate 14 07/24/22 19:48 Blood Pressure 116/70 07/24/22 19:48 Pulse Oximetry 98 07/24/22 19:48 Oxygen Delivery Method Room Air 07/24/22 19:48 MDM - Nausea/Vomiting/Diarrhea MDM Narrative Medical decision making narrative: Patient is a 32-year-old woman with a complex history as noted above who presents with nausea and vomiting. Her laboratory studies including CBC and comprehensive metabolic panel as well as UA are reassuring. OB assessment is performed and is reassuring. Patient observed carefully in the emergency room for proximally 2 hours remaining asymptomatic. She did receive a L of normal saline 4 mg of Zofran 10 mg of oral Flexeril. This time patient will be released with primary care/OB follow-up. Differential Diagnosis Differential diagnosis: Likely traveler's diarrhea, food poisoning, gastroenteritis, clostridium difficile infection, drug-induced nausea and vomiting and dehydration Lab Data Labs: Lab Results 07/24/22 07/24/22 Range/Units 20:22 20:31 WBC 14.31 H (4.50-11.00) K/uL RBC 4.69 (4.00-5.20) m/uL Hgb 13.3 (12.0-16.0) gm/dL Hct 40.4 (33.0-51.0) % MCV 86 (80-100) fL MCH 28 (26-34) pg MCHC 33 (32-36) gm/dL RDW Coeff of Cira 13.4 (11.5-15.5) % Plt Count 365 (140-440) K/uL Neut % (Auto) 70.5 (42.0-72.0) % Lymph % (Auto) 22.6 (20-44) % [place] % (Auto) 6.2 (0.0-11.0) % Eos % (Auto) 0.2 (0.0-7.0) % Baso % (Auto) 0.2 (0.0-3.0) % Neut # (Auto) 10.10 H (1.7-7.0) K/uL Lymph # (Auto) 3.20 H (0.90-2.90) K/uL [place] # (Auto) 0.90 (0.00-0.90) K/UL Eos # (Auto) 0.00 (0.00-0.50) K/uL Baso # (Auto) 0.00 (0.00-0.30) K/uL Sodium 134 L (135-149) mmol/L Potassium 3.4 L (3.6-5.1) mmol/L Chloride 101 (96-114) mmol/L Carbon Dioxide 26 (20-32) mmol/L BUN 8 (5-24) mg/dL Creatinine 0.6 (0.5-1.5) mg/dL Estimated Creat Clear 114.09 Estimated GFR 121 ml/min Glucose 79 (60-115) mg/dL Calcium 8.9 (8.4-10.6) mg/dL Total Bilirubin 0.4 (0.1-1.5) mg/dL AST 15 (12-35) U/L ALT 16 (4-35) U/L Alkaline Phosphatase 89 (40-150) U/L Total Protein 8.1 (6.0-8.3) g/dL Albumin 4.3 (3.3-5.0) g/dL Urine Color Yellow (Yellow) Urine Appearance Clear (Clear) Urine pH 6.0 (5.0-8.5) Ur Specific [place] 1.025 (1.000-1.030) Urine Protein Negative (Negative) Urine Glucose (UA) Negative (Negative) Urine Ketones 1+ A (Negative) Urine Blood Negative (Negative) Urine Nitrite Negative (Negative) Urine Bilirubin 1+ A (Negative) Urine Urobilinogen 0.2 (0.2-1.0) Ur Leukocyte Esterase Negative (Negative) Discharge Plan Discharge Clinical Impression: Vomiting Patient Disposition: Home, Self-Care Condition: Stable Instructions: Gastroenteritis (ED) Additional Instructions: Continue current medications Advanced diet activity as tolerated Keep appointment with OBGYN. Prescriptions: No Action prenat.vits,kristyn,phi-[id number] Tablet 1 tab PO QDAY metoclopramide HCl 10 mg/mL concentrate 10 mg PO TIDWMEAL diphenhydramine HCl [Benadryl] 25 mg capsule 25 mg PO BID PRN (Reason: sleep) gabapentin 300 mg capsule 300 mg PO BID (DME) lancets Misc See Rx Instructions .MEDSUPPLY Qty: 100 3RF Rx Instructions: Test blood sugar 4 times daily. (DME) Test Strips Misc See Rx Instructions .MEDSUPPLY Qty: 100 3RF Rx Instructions: Test blood sugar 4 times daily. enoxaparin 40 mg/0.4 mL syringe 40 mg subcut QDAY omeprazole 40 mg capsule,delayed release(DR/EC) PO QDAY ondansetron 4 mg tablet,disintegrating 4 mg PO Q8H PRN (Reason: nausea and vomiting) Qty: 10 0RF Follow Up/Referrals: Merline Barrera MD [Primary Care Provider] - Stand Alone Forms: [facility] Info Instructions
[2022-07-24 21:22] LABS: Albumin* 4.3 g/dL (3.3-5.0); Chloride* 101 mmol/L (96-114); Potassium* 3.4 mmol/L (3.6-5.1); Sodium* 134 mmol/L (135-149)
[2022-07-24 21:25] LABS: Alanine Aminotransferase* 16 U/L (4-35); Alkaline Phosphatase* 89 U/L (40-150); Aspartate Amino Transferase* 15 U/L (12-35); Bilirubin Total* 0.4 mg/dL (0.1-1.5); Blood Urea Nitrogen* 8 mg/dL (5-24); Carbon Dioxide* 26 mmol/L (20-32); Creatinine* 0.6 mg/dL (0.5-1.5); Est. Creatinine Clearance* 114.09; Estimated Glomerular Filt Rate 121 ml/min; Glucose* 79 mg/dL (60-115); Total Protein* 8.1 g/dL (6.0-8.3)
[2022-07-24 21:26] LABS: Calcium* 8.9 mg/dL (8.4-10.6)
[2022-07-24 22:21] VITALS: BP 116/80; PULSE 88; RESP 16; TEMP 36.7; O2SAT 96
--- OUTSIDE RECORDS SUMMARY | 2022-07-24 22:37 | XMS_ITS | Continuity of Care Document ---
Author Name Unknown Organization [facility] Address [address] [address] [place] [address] Phone Care Team Providers Care Bioinformatics Support Specialist Name Role Phone Gayle BOLTON, Nicole Unavailable Unavailable Allergies, Adverse Reactions, Alerts Substance Reaction Status Criticality No Known Allergies Active No Inform ation Medications Medication Instructions Dosage Effective Dates (start - stop) Status Comments polyethylene glycol 3350 17 gram/dose oral powder take 2 to 3 capfuls two times daily - Active Miralax 17 gram/dose oral powder - Active IBgard 90 mg capsule,delayed,extend ed release take 2 tablet by oral route every day 2 tablet - Active dicyclomine 20 mg tablet dicyclomine 20 mg three times daily - Active metoclopramide 5 mg/5 mL oral solution take 10 milliliter by oral route 3 times every day 30 minutes before meals - Active omeprazole 40 mg capsule,delayed release take one tablet 1/2 hour before breakfast and dinner - Active famotidine 40 mg tablet take one tablet at bedtime - Active gabapentin 100 mg capsule take 1 capsule by ORAL route 3 times every day 100 MG - Active meclizine 25 mg tablet take 1 tablet by oral route every day as needed 25 MG - Active quetiapine 300 mg tablet take 1 tablet by oral route every day 300 MG - Active propranolol 20 mg tablet take 1 tablet by oral route 2 times every day 20 MG - Active famotidine 40 mg tablet take 1 tablet by oral route every day at bedtime 40 MG - Active amitriptyline 50 mg tablet take 1 tablet by oral route every day at bedtime 50 MG - Active Tylenol Extra Strength 500 mg tablet take 2 tablet by oral route every 6 hours as needed 1000 MG - Active baclofen 10 mg tablet take 1 tablet by oral route 4 times every day 10 MG - Active cyclobenzaprine 5 mg tablet take 1 tablet by oral route 3 times every day 5 MG - Active metformin 500 mg tablet take 1 tablet by oral route every day with morning and evening meals 500 MG - No Longer Active omeprazole 40 mg capsule,delayed release take 1 capsule by ORAL route every day 40 MG - No Longer Active Procedures Procedure Date Offic/outpt E&m Estab Mod-hi 4 23 Offic/outpt E&m Estab Mod-hi 4 22 Prolong OP E&M Offic/outpt E&m Estab Low-mod 2 Telephone E&M III 21-30 Min CORDELL Advance Directives Directive Yes / No Effective Date File Name No Information Encounters Encounter Description Practice Location Reason(s) For Visit Diagnoses Date Provider Providers Copied on Encounter Offic/outpt E&m Estab Mod-hi 4 [facility], [address] [address], [place], [place], [id number], [place] tel:[phone] [facility] GI Symptoms or Concerns (chief complaint) Irritable bowel syndrome with constipationNau sea and vomiting, unspecified vomiting typeBloatingEpi gastric painDietary counseling and surveillance 3 Gayle Rivera. [address] [facility], [facility] [address], [place], [place], [id number], [place]. tel:[phone] Referring Provider: Merline Barrera MD, [address] [facility], [place], [address]. tel:[phone] [facility], [address] [address], [place], [id number], [place] tel:[phone] [facility] No Information 3 Victoriano Valencia. [address] [facility], [facility] [address], [place], [place], [id number], [place]. tel:[phone] [facility], [address] [address], [place], [id number], [place] tel:[phone] [facility] No Information 3 Gayle Rivera. [address] [facility], [facility] [address], [place], [place], [id number], [place]. tel:[phone] Referring Provider: Referral Self. Offic/outpt E&m Estab Mod-hi 4 [facility], [address] [address], [place], [place], [id number], [place] tel:[phone] [facility] GI Symptoms or Concerns (chief complaint) Irritable bowel syndrome with constipationGas troesophageal reflux disease, unspecified whether esophagitis presentChest pain, unspecified typeNausea and vomiting, unspecified vomiting type 2 Gayle Rivera. [address] [facility], [facility] [address], [place], [place], [id number], [place]. tel:[phone] Referring Provider: Referral Self. Offic/outpt E&m Estab Low-mod [facility], [address] [address], [place], [place], [id number], [place] tel:[phone] [facility] GI Symptoms or Concerns (chief complaint) Gastroparesis 2 Mary Anderson. [address] [facility], [address], [place], [place], [id number], [place]. tel:[phone] Referring Provider: Merline Barrera MD, [address] [place] [address], [address]. tel:[phone] [facility], [address] [address], [place], [id number], [place] tel:[phone] [facility] No Information 2 Victoriano Valencia. [address] [facility], [address], [id number], [place]. tel:[phone] Telephone E&M III 21-30 Min CORDELL [facility], [address] [address], [place], [id number], [place] tel:[phone] [facility] GI Symptoms or Concerns (chief complaint) Generalized abdominal painFocal active colitisBloating Elevated C-reactive protein (CRP) 1 Barbara Aquino. [address] [facility], [facility] [address], [place], [id number], [place]. tel:[phone] Referring Provider: Referral Self. [facility], [address] [address], [place], [id number], [place] tel:[phone] [facility] No Information 1 Yas Adkins. [address], [id number], [place]. tel:[phone] Family History Family Member Type Diagnosis Age At Onset Mother Problem (finding) Mother Problem (finding) malignant neoplasm of u rinary bladder Father Problem (finding) Alive and well Sister Problem (finding) Alive and well Brother Problem (finding) Alive and well Immunizations Vaccine Date Status Comments Afluria Qd administered Note: [facility] bi-directional interface ; Source: Other Registry SARS-COV-2 (COVID-19) vaccin e, mRNA, spike protein, LNP, bivalent booster, preservative free, 30 mcg/0.3 mL dose, cyndy-sucrose formulation administered Note: [facility] bi-d irectional interface ; Source: Other Registry Afluria Qd administered Note: [facility] bi-directional interface ; Source: Other Registry SARS-COV-2 (COVID-19) vaccin e, mRNA, spike protein, LNP, preservative free, 30 mcg/0.3mL dose administered Note: [facility] bi-direct ional interface ; Source: Other Registry SARS-COV-2 (COVID-19) vaccin e, mRNA, spike protein, LNP, preservative free, 30 mcg/0.3mL dose administered Note: [facility] bi-direct ional interface ; Source: Other Registry Afluria Qd administered Note: [facility] bi-directional interface ; Source: Other Registry Afluria Qd administered Note: [facility] bi-directional interface ; Source: Other Registry tetanus toxoid, reduced diphtheria toxoid, and acellular pertussis vaccine, adsorbed administered Note: [facility] b i-directional interface ; Source: Other Registry tetanus toxoid, reduced diphtheria toxoid, and acellular pertussis vaccine, adsorbed administered Note: [facility] b i-directional interface ; Source: Other Registry Payers Payer name Insurance type Covered democrat ID Joseph maldonado(s) Selina SUH [id number] Social History Type Description Quantity Date Captured Comments Alcohol Use Details No Caffeine Use Details Unknown Tobacco Use Status Smoking Status Current every day smoker 2022 Sex Female Vital Signs Date / Time: Height Weight BMI Pulse Rate Blood Pressure Temperature Respiratory Rate Body Surface Area Head Circumference Head Circ. Percentile Wt./Warner. Percentile BMI percentile Pulse Ox Inhaled Ox 1:59 PM 64.00 in 119.839 kg (264.20 lbs) 45.3 5 kg/m eter (2) 87 /min 121/66 mm[Hg] Chief Complaint And Reason For Visit From encounter dated '06/26/2022 14:15'. GI Symptoms or Concerns (chief complaint). Description: Kayleigh Stahl is a 32-year-old Croatian-speaking female, who was present today in the [facility] with a professional Croatian-speaking wardrobe supervisor. She is 20 weeks gestation and returns to the clinic to discuss symptoms most consistent with irritable bowel syndrome, constipation predominant, nausea with episodes of vomiting. She also has incidenceof a gastroparesis. She has frequent ER visits due to refractory nausea, vomiting which has been unresponsive to metoclopramide. She has lost 40 pounds over the last year due to these symptoms, but weight has been stable now over the last 6 months or so. Her medical history also includes panic attacks, cannabis use, GERD, obesity, migraine headaches, and insomnia followed by [facility]. She is on metformin for control of her blood sugars. She has a history of diverticulitis and she is status post cholecystectomy.She has been prescribed Amitiza in the past, but is no longer taking this. She continues to have constipation despite taking MiraLax 1 capful 2 times daily. She endorses abdominal bloating and intermittent abdominal pain. Dicyclomine 20 mg 3 times daily has been prescribed, but she is no longer taking this. She has intermittent nausea and then these episodes of refractory vomiting. She has previously been on Metamucil.Her nausea is on almost a daily basis, but intermittent. No aggravating or alleviating factors. She denies black or bloody stools. She has intermittentbouts of chest pain and heartburn, refractory to omeprazole 40 mg daily and Pepcid 40 mg daily. Shehas been in contact with her [employer] who is aware that she is on omeprazole and metoclopramide and according to Kayleigh, her [facility] [employer] provider recommend she continue on these therapy since she is already onthem.Prior testing includes a CT of chest PE study in February [address] of abdomen and pelvis with IV contrast on 01/06/2021 showed a dominant 2.5 cm follicle and slightly enlarged ovary, fatty liver and diverticulosis. CT of the abdomen and pelvis on 10/17/2020, fatty liver, otherwise normal. Colonoscopy on 10/01/2020 showed one 4 mm polyp in the sigmoid colon. Random colon biopsy showed focal active colitis and TI biopsies normal. EGD on 02/17/2021 showed gastritis. The esophageal and small-bowel biopsies normal. Gastric biopsies consistent with nonerosive reactive gastroscopy. CRP el evation at 1.11. Gastric emptying study on 11/14/2021 showed delay in gastric emptying at 90 minutes with a 22% retention. Reason For Referral Reason For Referral No Information Plan Of Treatment Date Type Action Status Goal Lifestyle education regardin g diet completed Referral Ordered: follow-up visit with [facility] 5 Months Appointment date/timeframe: 5 Months ordered Referral Ordered: CBC w/diff Appointment date/timeframe: First Available ordered Referral Ordered: Stool Test Panel, Comprehensive Appointment date/timeframe: First Available ordered Referral Ordered: C-Reactive Protein Appointment date/timeframe: First Available ordered Referral Ordered: Ova + Parasites Appointment date/timeframe: First Available ordered Referral Ordered: Hepatic Function Panel Appointment date/timeframe: First Available ordered Referral Ordered: Calprotectin, Fecal Appointment date/timeframe: First Available ordered History Of Present Illness Encounter Date Complaint History Of Prese nt Illness GI Symptoms or Concerns Kayleigh Stahl is a 32-year-old Croatian-speaking female, who was present today in the [facility] with a professional Croatian-speaking wardrobe supervisor. She is 20 weeks gestation and returns to the clinic to discuss symptoms most consistent with irritable bowel syndrome, constipation predominant, nausea with episodes of vomiting. She also has incidence of a gastroparesis. She has frequent ER visits due to refractory nausea, vomiting which has been unresponsive to metoclopramide. She has lost 40 pounds over the last year due to these symptoms, but weight has been stable now over the last 6 months or so. Her medical history also includes panic attacks, cannabis use, GERD, obesity, migraine headaches, and insomnia followed by [facility]. She is on metformin for control of her blood sugars. She has a history of diverticulitis and she is status post cholecystectomy.She has been prescribed Amitiza in the past, but is no longer taking this. She continues to have constipation despit GI Symptoms or Concerns This is a 31-year-old female who is present today in the [facility] to discuss gastroparesis, nausea/vomiting, abdominal pain and bowel irregularity. 55 minutes was spent on this encounter. She is seen through the assistance of a professional language line doctor of naprapathic medicine. Her significant other Erik is present as well who also speaks new zealander. Symptoms have been present for several months. She reports a 40 lb weight loss over the last two months but weight appears stable over the last year. Her prescriptions and orders are restricted through Dr. Merline Barrera. Her medical history includes panic attacks, Cannibis use, GERD,, obesity, migraine headaches, insomnia followed by [facility]. She is on metformin for control of her sugars. She recent had diverticulitis. She is s/p cholecystectomy. Outside records are reviewed, CT scan revealing sigmoid diverticulitis. CMP, CRP, UA, magnesium and lipase normal. She has nausea every day. This can keep her from falling asleep at night. No aggravating or alleviating factors. She has been started on metoclopramide 5 mg three times daily with ongoing incidence. She reports chest pain and heartburn refractory to omeprazole 40 mg and pepcid 40 mg daily. She reports bowel movements 1 to 2 per day most days then a day with more frequency. She has a sense of incomplete defecation. She complains of bloating and gas distention. She has migratory abdominal cramping and post prandial pain which may be responding to dicyclomine she is taking 1 to 2 times per day. She has carafate ordered which she si not using. She is on metamucil. She has been prescribed baclofen that she is not using. She denies black or bloody stools. EXTERNAL RECORDS/WORKUP (obtained the day of our visit but after our visit) -CT chest PE study on 02/24/2021 showed no acute cardiopulmonary abnormality. No PE.- CT of abdomen and pelvis with IV contrast, 01/06/2021 for abdominal bloating, left lower quadrant abdominal pain showed a dominant 2.5 cm follicle and slightly enlarged left ovary without any other abnormality, minor diverticulosis without evidence of diverticulitis, fatty liver.- CT of abdomen/pelvis with contrast on 10/17/2020 showed no acute findings. Fatty liver.-Colonoscopy on 10/01/2020 showed one 4 mm polyp in the sigmoid colon, which was removed. TI and random colon biopsies were obtained. TI biopsies were normal. Random colon biopsy showed focal active colitis.- EGD on 02/17/2021 showed evidence of gastritis with a normal examined duodenum. Distal esophageal biopsy was normal, gastric biopsy showed nonerosive reactive gastropathy, negative for H. pylori. Duodenal biopsies were normal.-Lab work on 01/24/2021: WBC 12.2, hemoglobin 14.7, absolute neutrophil count was slightly elevated at 7.9, absolute lymphocyte count slightly elevated at 3.2, absolute monocyte count borderline high at 0.9. CMP showed normal LFTs. Lipase 28. CRP elevated at 1.11. This was rechecked on 01/28/2021 and was 1.27.Gastric emptying study 11/14/2021 showed delay in gastric emptying. at 90 minutes 22% retention. GI Symptoms or Concerns The etienne ent is a 31-year-old female, who is here for followup regarding concerns about gastroparesis. The history is obtained through an wardrobe supervisor. She has been seen previously by us for multiple GI problems. Please see consult from 03/03/2021, which outlines a history and workup. Today, she reports that she was diagnosed with gastroparesis. She does report nausea and vomiting and I do get a history of vomiting of undigested food about 20 minutes after eating. However, she also describes abdominal pain when not eating and occasional nauseam also unrelated to eating. She does have epigastric and retrosternal burning sensation and is taking pantoprazole, it appears to help. In the note from her physician, other medications included Reglan and Carafate. I reviewed this with her, but it does not appear that she is taking this. I am not sure she ever took the Reglan. She did have a gastric emptying study on 11/14, which showed delayed gastric emptying i.e. 22% at 90 minutes i.e. GI Symptoms or Concerns This is a 30-year-old female who is seen today via telehealth appointment with the help of a Croatian-speaking wardrobe supervisor for the evaluation of abdominal discomfort, bloating, and acidity." Verbal consent was obtained.She reports upper and lower abdominal pain, which has been present for several months now. It is worsened by eating. She complains of bloating and discomfort associated with this. This is present on a daily basis. The pain severity is at least moderate. She typically has daily bowel movements, but every once in a while, she will have constipation. There is no melena or hematochezia. Nothing in particular makes it better. She has tried some antacids, which have not helped.She has had an abdominal CT scan, EGD, and colonoscopy, as well as some laboratory work done through [facility] [place] [facility]; these records will be requested.There is no family history of any GI-related conditions or malignancies. Home medications include Flexeril, baclofen, amitriptyline, famotidine, meclizine, metformin, omeprazole 40 mg daily, pantoprazole, quetiapine, and Tylenol p.r.n.EXTERNAL RECORDS/WORKUP (obtained the day of our visit but after our visit) -CT chest PE study on 02/24/2021 showed no acute cardiopulmonary abnormality. No PE.- CT of abdomen and pelvis with IV contrast, 01/06/2021 for abdominal bloating, left lower quadrant abdominal pain showed a dominant 2.5 cm follicle and slightly enlarged left ovary without any other abnormality, minor diverticulosis without evidence of diverticulitis, fatty liver.- CT of abdomen/pelvis with contrast on 10/17/2020 showed no acute findings. Fatty liver.-Colonoscopy on 10/01/2020 showed one 4 mm polyp in the sigmoid colon, which was removed. TI and random colon biopsies were obtained. TI biopsies were normal. Random colon biopsy showed focal active colitis.- EGD on 02/17/2021 showed evidence of gastritis with a normal examined duodenum. Distal esophageal biopsy was normal, gastric biopsy showed nonerosive reactive gastropathy, negative for H. pylori. Duodenal biopsies were normal.-Lab work on 01/24/2021: WBC 12.2, hemoglobin 14.7, absolute neutrophil count was slightly elevated at 7.9, absolute lymphocyte count slightly elevated at 3.2, absolute monocyte count borderline high at 0.9. CMP showed normal LFTs. Lipase 28. CRP elevated at 1.11. This was rechecked on 01/28/2021 and was 1.27. Functional Status Date Functional Assessmen t No Information Instructions Date Instruction Additional Infor donald Lifestyle education regarding di et Related to Dietary counseling and surveillance I had discussion reg tadding possible gastroparesis with her through the wardrobe supervisor. Supplied gastric emptying folder. We discussed smaller frequent meals, blending her food. Continue pantoprazole q.a.m. Roosevelt of Reglan liquid 10 mg half an hour before meals, and did not add before bedtime as she does not appear to have nocturnal symptoms. We will have her follow up with our [facility] in 1-2 months. Related to Gastroparesis Gastroparesis Folder Related to Gastroparesis -Start a daily fiber supplement for your bowels -Try dicyclomine - medication for intestinal pain/cramping up to 4x a day -I will request your workup to see what has been done and be in touch with you with further recommendations based on this -Schedule a follow up visit Related to Generalized abdominal pain Assessments Type Assessment Date assessment Irritable bowel syndrome with co nstipation assessment Nausea and vomiting, unspecified vomiting type assessment Bloating assessment Epigastric pain assessment Dietary counseling and surveilla nce impression IMPRESSIONThithaddeus is a 32-year-old Croatian-speaking female, present with a professional pharmacist in charge owner in the [facility] for management of symptoms most consistent with irritable bowel syndrome, constipation predominant, abdominal pain, nausea with episodes of vomiting. Her medical history includes panic attacks, cannabis use, GERD, obesity, migraine headaches, and insomnia.1. Recurrent episodes of nausea and vomiting, prompting ER management. Differentials would include cyclic vomiting syndrome. She does have associated abdominal pain. This has been refractory to metoclopramide. She is already on amitriptyline. I would recommend current therapy. I do not want to change too many things given she is 20 weeks .2. Gastroesophageal reflux disease. Potentially exacerbated by underlying gastroparesis and irritable bowel syndrome. Could be a component of a cannabis hyperemesis. She will continue omeprazole and Pepcid. Her [employer] provider is aware she is on this therapy.3. Irritable bowel syndrome, constipation predominant, currently well managed with MiraLax. After she has delivered her baby, I would then consider Ibsrela.She will remain on metoclopramide, which has been recommended by her [facility] per the patient reports. I will have her followup after . She can call me with questions or concerns in the interim.Forty minutes spent on this encounter. Mental Status Date Cognitive Assessment Orientation - [place] ed to time, place, person, situation.Normal Orientation Patient Care Teams Name Effective Dates (start - stop) Status Members No Information
== END 2022-07-24 22:36 | disposition home or self-care (01) ==
LOC: ED 22:35
PROVIDERS: Emergency Provider Internal Medicine; PCP Family Medicine
DX: R11.0 Nausea (principal); Z3A.23 23 weeks gestation of pregnancy
CPT/HCPCS: 36415; 80053; 81003; 85025; 96374; 99283; A9270; J2405; J7030

== ENCOUNTER 2022-07-25 14:06 | Outpatient (CLI) | payer MEDICAID, SELFPAY ==
--- OUTSIDE RECORDS SUMMARY | 2022-07-25 14:08 | XMS_ITS | Continuity of Care Document ---
Author Name Unknown Organization [facility] Address [address] [address] [place] [address] Phone Care Team Providers Care Power Generation Technician Name Role Phone Gayle BOLTON, Nicole Unavailable [...] on Encounter Offic/outpt E&m Estab Mod-hi 4 [facility], [address] [address], [place], [place], [id number], [place] tel:[phone] [facility] GI Symptoms or Concerns (chief complaint) Irritable bowel syndrome with constipationNau sea and vomiting, unspecified vomiting typeBloatingEpi gastric painDietary counseling and surveillance 3 Gayle Rivera. [address] [facility], [facility] [address], [place], [place], [id number], [place]. tel:[phone] Referring Provider: Merline Barrera MD, [address] [facility], [place], [address]. tel:[phone] [facility], [address] [address], [place], [id number], [place] tel:[phone] [facility] No Information 3 Victoriano [place]. [address] [facility], [facility] [address], [place], [place], [id number], [place]. tel:[phone] [facility], [address] [address], [place], [place], [id number], [place] tel:[phone] [facility] No Information 3 Gayle Rivera. [address] [facility], [facility] [address], [place], [place], [id number], [place]. tel:[phone] Referring Provider: Referral Self. Offic/outpt E&m Estab Mod-hi 4 [facility], [address] [address], [place], [id number], [place] tel:[phone] [facility] GI Symptoms or Concerns (chief complaint) Irritable bowel syndrome with constipationGas troesophageal reflux disease, unspecified whether esophagitis presentChest pain, unspecified typeNausea and vomiting, unspecified vomiting type 2 Gayle Rivera. [address] [facility], [facility] [address], [place], [place], [id number], [place]. tel:[phone] Referring Provider: Referral Self. Offic/outpt E&m Estab Low-mod [facility], [address] [address], [place], [place], [id number], [place] tel:[phone] [facility] GI Symptoms or Concerns (chief complaint) Gastroparesis 2 Mary Anderson. [address] [facility], [address], [place], [place], [id number], [place]. tel:[phone] Referring Provider: Merline Barrera MD, [address] [place] [address], [address]. tel:[phone] [facility], [address] [address], [place], [address], [place] tel:[phone] [facility] No Information 2 Victoriano [place]. [address] [facility], [address], [id number], [place]. tel:[phone] Telephone E&M III 21-30 Min CORDELL [facility], [address] [address], [place], [id number], [place] tel:[phone] [facility] GI Symptoms or Concerns (chief complaint) Generalized abdominal painFocal active colitisBloating Elevated C-reactive protein (CRP) 1 Barbara Aquino. [address] [facility], [facility] [address], [place], [id number], [place]. tel:[phone] Referring Provider: Referral Self. [facility], [address] [address], [place], [address], [place] tel:[phone] [facility] No Information 1 Yas Adkins. [address], [id number], [place]. tel:[phone] Family History Family Member Type Diagnosis Age [...] Registry Payers Payer name Insurance type Covered alliance party ID Joseph maldonado(s) Selina SUH [id number] Social History Type Description Quantity Date Captured [...] complaint). Description: Kayleigh Stahl is a 32-year-old Lebanese-speaking female, who was present today in the [facility] with a professional Lebanese-speaking dairy machine operator farmworker. She is 20 weeks gestation and returns [...] daily. Shehas been in contact with her GETTERING OPERATOR who is aware that she is on omeprazole and metoclopramide and according to Kayleigh, her GETTERING OPERATOR provider recommend she continue on these therapy [...] diet completed Referral Ordered: follow-up visit with [facility] 5 Months Appointment date/timeframe: 5 Months [...] or Concerns Kayleigh Stahl is a 32-year-old Lebanese-speaking female, who was present today in the [facility] with a professional Lebanese-speaking dairy machine operator farmworker. She is 20 weeks gestation and returns [...] female who is present today in the [facility] to discuss gastroparesis, nausea/vomiting, abdominal pain and bowel irregularity. 55 minutes was spent on this encounter. She is seen through the assistance of a professional language line hydrologist. Her significant other Erik is present as well who also speaks kazakh. Symptoms have been present for several months. [...] gastroparesis. The history is obtained through an dairy machine operator farmworker. She has been seen previously by us [...] telehealth appointment with the help of a Lebanese-speaking dairy machine operator farmworker for the evaluation of abdominal discomfort, bloating, [...] well as some laboratory work done through [facility]; these records will be requested.There is no [...] tadding possible gastroparesis with her through the dairy machine operator farmworker. Supplied gastric emptying folder. We discussed smaller frequent meals, blending her food. Continue pantoprazole q.a.m. [place] of Reglan liquid 10 mg half an [...] surveilla nce impression IMPRESSIONThithaddeus is a 32-year-old Lebanese-speaking female, present with a professional small lot operator in the [facility] for management of symptoms most consistent [...] She will continue omeprazole and Pepcid. Her GETTERING OPERATOR provider is aware she is on this therapy.3. Irritable bowel syndrome, constipation predominant, currently well managed with MiraLax. After she has delivered her baby, I would then consider Ibsrela.She will remain on metoclopramide, which has been recommended by her GETTERING OPERATOR per the patient reports. I will have her followup after . She can call me with questions or concerns in the interim.Forty minutes spent on this encounter. Mental Status Date Cognitive Assessment Orientation - [place] ed to time, place, person, situation.Normal Orientation Patient Care Teams Name Effective Dates (start - stop) Status Members No Information
[2022-07-25 14:31] VITALS: BP 114/70; PULSE 78
[2022-07-25 14:33] VITALS: PULSE 79; O2SAT 97
[2022-07-25 14:37] VITALS: RESP 20; TEMP 36.8
[2022-07-25 15:34] LABS: Amnisure Rom* Negative; Appearance Urine Clear (Clear); Bilirubin Urine 1+ (Negative); Blood Urine Negative (Negative); Color Urine Yellow (Yellow); Glucose Urine Negative (Negative); Ketones Urine Trace (Negative); Leukocyte Esterase Urine Negative (Negative); Nitrite Urine Negative (Negative); Protein Urine 1+ (Negative); Specific Gravity Urine >= 1.030 (1.000-1.030); Urobilinogen Urine 0.2 (0.2-1.0)
[2022-07-25 15:49] LABS: Clue Cells No Clue Cells Seen (None Seen); Trichomonas No Trichomonas Seen (None Seen); Yeast No Yeast Seen (None Seen)
[2022-07-25 15:52] LABS: Fetal Fibronectin* Negative (Negative)
[2022-07-25] MEDS: ACETAMINOPHEN 500 MG TABLET 1000 MG PO (15:57)
[2022-07-25 16:03] LABS: RBC Urine 0-2 (0-2); Squamous Epithelial Cell Urine Few (None-Few); Uric Acid Crystals Urine Few; WBC Urine 0-2 (0-5)
--- NOTE | 2022-07-25 17:13 | PC.OBNST ---
NST Note NST Note Start: 07/25/22 15:25 Freq: ONCE Status: Active Protocol: Document 07/25/22 16:54 [facility] (Rec: 07/25/22 16:57 [facility] [id number]) NST Note 4 Para (# of births) 2 EDC 11/12/22 Gestational Age In Weeks & Days 24 Weeks & 2 Days High Risk Factors High Blood Pressure - Preexisting,Diabetes - Gestational Diet Controlled Patient Presented with Complaint(s) of Contractions/cramping,Leaking fluid Appropriate for Gestational Age Yes RN Corbin Schreiber RN Date 07/25/22 Appropriate for Gestational Age Yes RN Nydia Farley RN Date 07/25/22 OB NST charge Yes Complete NST Note via Write Note Yes The provider's electronic signature indicates the NST is reactive/appropriate for gestational age. *Note to provider: If an addendum is required, open the patient's chart and click on the note under the Nurse/Allied Health tab.
[2022-07-26 14:49] LABS: Strep B DNA Probe NEGATIVE (Negative)
[2022-07-26 20:45] LABS: Strep B Pen/Amox Allergy No
== END 2022-07-25 16:52 | disposition home or self-care (01) ==
LOC: OB OUT 14:07 → OB 14:07
PROVIDERS: PCP Family Medicine; Visit Provider Obstetrics & Gynecology
DX: O10.912 Unspecified pre-existing hypertension complicating pregnancy, second trimester (principal); O47.02 False labor before 37 completed weeks of gestation, second trimester; Z3A.24 24 weeks gestation of pregnancy
CPT/HCPCS: 59025; 81003; 81015; 84112; 87081; 87086; 87210; 87653; 99213; A9270

== ENCOUNTER 2022-08-04 14:02 | Outpatient (CLI) | payer MEDICAID, SELFPAY | END 2022-08-04 14:03 | disposition home or self-care (01) | LOC: NFLDREF 14:03 | PROVIDERS: PCP Family Medicine; Visit Provider Obstetrics & Gynecology | DX: Z34.92 Encounter for supervision of normal pregnancy, unspecified, second trimester (principal); Z3A.25 25 weeks gestation of pregnancy | CPT/HCPCS: 86592 ==

== ENCOUNTER 2022-09-09 19:12 | Outpatient (CLI) | payer MEDICAID, SELFPAY ==
[2022-09-09 19:37] VITALS: BP 105/59; PULSE 89; RESP 20; TEMP 36.9
[2022-09-09 19:58] LABS: Appearance Urine Slightly Cloudy (Clear); Bilirubin Urine Negative (Negative); Blood Urine Negative (Negative); Color Urine Yellow (Yellow); Glucose Urine Negative (Negative); Ketones Urine Negative (Negative); Leukocyte Esterase Urine Trace (Negative); Nitrite Urine Negative (Negative); Protein Urine Trace (Negative); Specific Gravity Urine 1.015 (1.000-1.030); Urobilinogen Urine 0.2 (0.2-1.0); pH Urine 6.5 (5.0-8.5)
[2022-09-09 20:14] LABS: Basophils Percent Auto 0.1 % (0.0-3.0); Eosinophils Percent Auto 0.6 % (0.0-7.0); Hematocrit 34.7 % (33.0-51.0); Hemoglobin* 11.5 gm/dL (12.0-16.0); Immature Granulocytes Pct Auto 0.3 %; Lymphocytes Percent Auto 26.6 % (20-44); Mean Corpuscular HGB Conc 33 gm/dL (32-36); Mean Corpuscular Hemoglobin 28 pg (26-34); Mean Corpuscular Volume 84 fL (80-100); Neutrophils Percent Auto 67.4 % (42.0-72.0); Platelet Count* 279 K/uL (140-440); RDW Coefficient of Variation % 13.9 % (11.5-15.5); Red Blood Count 4.15 m/uL (4.00-5.20); White Blood Count* 12.93 K/uL (4.50-11.00)
[2022-09-09] MEDS: LACTATED RINGERS 1000 ML 1,000 ML IV (20:15)
[2022-09-09 20:16] LABS: RBC Urine 0-2 (0-2); Squamous Epithelial Cell Urine Moderate (None-Few)
[2022-09-09 20:17] LABS: Slide Review Reflex No
[2022-09-09] MEDS: METOCLOPRAMIDE HCL 5 MG/ML INJ 10 MG IVP (20:26)
[2022-09-09] MEDS: diphenhydrAMINE 50 MG/ML inj IVP (20:27)
[2022-09-09 20:29] LABS: Albumin* 3.5 g/dL (3.3-5.0)
[2022-09-09] MEDS: PANTOPRAZOLE SODIUM 40 MG INJ IVP (20:29)
[2022-09-09 20:30] LABS: Chloride* 104 mmol/L (96-114); Sodium* 134 mmol/L (135-149)
[2022-09-09 20:32] LABS: Alkaline Phosphatase* 82 U/L (40-150); Aspartate Amino Transferase* 19 U/L (12-35); Bilirubin Total* 0.4 mg/dL (0.1-1.5); Blood Urea Nitrogen* 7 mg/dL (5-24); Carbon Dioxide* 22 mmol/L (20-32); Creatinine* 0.4 mg/dL (0.5-1.5); Estimated Glomerular Filt Rate 133 ml/min; Potassium* 3.2 mmol/L (3.6-5.1); Total Protein* 6.9 g/dL (6.0-8.3)
[2022-09-09 20:33] LABS: Alanine Aminotransferase* 14 U/L (4-35); Calcium* 8.5 mg/dL (8.4-10.6); Glucose* 106 mg/dL (60-115)
[2022-09-09 21:54] LABS: Magnesium* 1.9 mg/dL (1.5-2.6)
--- NOTE | 2022-09-09 23:42 | PC.OBNST ---
NST Note NST Note Start: 09/09/22 19:26 Freq: ONCE Status: Active Protocol: Document 09/09/22 22:30 [facility] (Rec: 09/09/22 23:42 [facility] [id number]) NST Note 4 Para (# of births) 3 EDC 11/12/22 Gestational Age In Weeks & Days 30 Weeks & 6 Days High Risk Factors High Blood Pressure - Preexisting,Diabetes - Gestational Diet Controlled, History of / Stillborn Patient Presented with Complaint(s) of Nausea and vomiting,Headache Other Complaints Patient has had vomiting, diarrhea, headache and generalized not feeling good for the last 3 days. Reactive Yes Appropriate for Gestational Age Yes FAYE Thomas, FAYE Date 09/09/22 Reactive Yes Appropriate for Gestational Age Yes FAYE Haq RN Date 09/09/22 OB NST charge Yes Complete NST Note via Write Note Yes The provider's electronic signature indicates the NST is reactive/appropriate for gestational age. *Note to provider: If an addendum is required, open the patient's chart and click on the note under the Nurse/Allied Health tab.
== END 2022-09-09 22:20 | disposition home or self-care (01) ==
LOC: OB OUT 19:15 → OB 19:15
PROVIDERS: Visit Provider Obstetrics & Gynecology
DX: O24.419 Gestational diabetes mellitus in pregnancy, unspecified control (principal); O10.912 Unspecified pre-existing hypertension complicating pregnancy, second trimester; Z3A.22 22 weeks gestation of pregnancy
CPT/HCPCS: 36415; 59025; 80053; 81001; 83735; 85025; 87086; 99213; C9113; J1200; J2765; J7120

== ENCOUNTER 2022-09-13 08:46 | Outpatient (CLI) | payer MEDICAID, SELFPAY ==
[2022-09-13] VITALS (7 sets, daily range): BP systolic 109–117; BP diastolic 65–70; PULSE 71–81; RESP 18; TEMP 36.5; O2SAT 97–99
[2022-09-13] MEDS: METOCLOPRAMIDE HCL 5 MG/ML INJ 10 MG IVP (10:00)
[2022-09-13] MEDS: LACTATED RINGERS 1000 ML 1,000 ML 125 ML IV (10:05)
[2022-09-13] MEDS: POTASSIUM CHLORIDE 10 MEQ/100 ML PIGGYBACK 100 MEQ IVPB ×2 (10:05→11:20)
[2022-09-13 10:12] LABS: Potassium* 3.7 mmol/L (3.6-5.1)
[2022-09-13] MEDS: PANTOPRAZOLE SODIUM 80 MG in 0.9 % SODIUM CHLORIDE 100 ml 100 ML 100 MG IVPB (10:30)
[2022-09-13] MEDS: ACETAMINOPHEN 500 MG TABLET 1000 MG PO (11:28)
[2022-09-13] MEDS: diphenhydrAMINE 50 MG/ML inj 25 MG IVP (11:29)
--- NOTE | 2022-09-13 14:32 | PC.OBNST ---
NST Note NST Note Start: 09/13/22 09:03 Freq: ONCE Status: Active Protocol: Document 09/13/22 14:30 [facility] (Rec: 09/13/22 14:31 [facility] [id number]) NST Note 4 Para (# of births) 3 EDC 11/12/22 Gestational Age In Weeks & Days 31 Weeks & 3 Days High Risk Factors High Blood Pressure - Preexisting,Diabetes - Preexisting Type I Diet Controlled Patient Presented with Complaint(s) of Nausea and vomiting,Headache, Other Other Complaints Here for KCl infusion Reactive Yes Appropriate for Gestational Age Yes FAYE Farley RN Date 09/13/22 Reactive Yes Appropriate for Gestational Age Yes FAYE Cabrera RN Date 09/13/22 OB NST charge Yes Complete NST Note via Write Note Yes The provider's electronic signature indicates the NST is reactive/appropriate for gestational age. *Note to provider: If an addendum is required, open the patient's chart and click on the note under the Nurse/Allied Health tab.
== END 2022-09-13 13:10 | disposition home or self-care (01) ==
LOC: OB CLI 08:48 → OB 08:50
PROVIDERS: Visit Provider Obstetrics & Gynecology
DX: O10.913 Unspecified pre-existing hypertension complicating pregnancy, third trimester (principal); O24.419 Gestational diabetes mellitus in pregnancy, unspecified control; Z3A.32 32 weeks gestation of pregnancy
CPT/HCPCS: 36415; 59025; 84132; 99211; A9270; C9113; J1200; J2765; J3480; J7120

== ENCOUNTER 2022-09-14 12:02 | Outpatient (CLI) | payer MEDICAID, SELFPAY ==
--- NOTE | 2022-09-14 12:15 | CRLHL7_ITS ---
For Patients: As a result of the Century Cures Act, medical imaging exams and procedure reports are released immediately into your electronic medical record. You may view this report before your referring provider. If you have questions, please contact your health care provider. INDICATION: chronic HTN, GDM, hx. of stillborn. obesity TECHNIQUE: Real time hooks scale imaging of the fetus was performed. COMPARISON: 08/18/2022 FINDINGS: Sonographic imaging demonstrates a single living intrauterine gestation. Fetus demonstrates a regular cardiac rate of 150 beats per minute. Fetus has a vertex position. The placenta lies posteriorly. Amniotic fluid volume appears normal and there is a single deepest pocket of 6.8 cm. The estimated weight is 2215gm which lies at the 93rd %. On the prior OB ultrasound dated 08/18/2022 the estimated weight was at the 71st percentile. BPD 43rd percentile. HC 33rd percentile. AC greater than 97th percentile. FL 40th percentile. The fetus was active and demonstrated normal breathing movements. There was normal flexion and extension of the trunk and extremities. IMPRESSION: Normal biophysical profile score 8/8. Sonographic gestational age 32 weeks 5 days and sonographic due date 11/04/2022. Sonographic age 8 days ahead of the clinical age. Estimated weight 93rd percentile. Abdominal circumference greater than 97th percentile. Dictated by Logan Felix MD @ 09/14/2022 1:53:54 PM (Electronically Signed)
== END 2022-09-14 12:03 | disposition home or self-care (01) ==
LOC: US 12:03
PROVIDERS: Visit Provider Obstetrics & Gynecology
DX: O24.419 Gestational diabetes mellitus in pregnancy, unspecified control (principal); O10.913 Unspecified pre-existing hypertension complicating pregnancy, third trimester; Z3A.32 32 weeks gestation of pregnancy
CPT/HCPCS: 76816; 76819; T1013

== ENCOUNTER 2022-09-17 10:39 | Outpatient (CLI) | payer MEDICAID, SELFPAY | END 2022-09-17 10:40 | disposition home or self-care (01) | LOC: NFLDREF 10:41 | PROVIDERS: Visit Provider Obstetrics & Gynecology | DX: K31.84 Gastroparesis (principal) | CPT/HCPCS: 82565; 82570; 84132; 84156; 84450; 84460; 84520 ==

== ENCOUNTER 2022-09-18 00:59 | Outpatient (CLI) | payer MEDICAID, SELFPAY ==
[2022-09-18] VITALS (16 sets, daily range): BP systolic 91–146; BP diastolic 56–93; PULSE 69–90; RESP 16–20; TEMP 36.6–36.8; O2SAT 97–99
--- NOTE | 2022-09-18 01:33 | PC.NURSE ---
0125 pt triaged and note to be HTN. Per Dr Quintanilla-pt needs to go to OB. Pt able to transfer self to w/c and taken to OB.
[2022-09-18] MEDS: LACTATED RINGERS 1000 ML 1,000 ML 125 ML IV (02:10)
[2022-09-18] MEDS: METOCLOPRAMIDE HCL 5 MG/ML INJ 10 MG IVP ×2 (02:25→06:34)
[2022-09-18] MEDS: MORPHINE 10 MG/ML inj 4 MG IVP (02:27)
[2022-09-18] MEDS: PANTOPRAZOLE SODIUM 40 MG INJ IVP ×2 (02:39→05:24)
[2022-09-18 02:42] LABS: Basophils Percent Auto 0.1 % (0.0-3.0); Eosinophils Percent Auto 0.1 % (0.0-7.0); Hemoglobin* 12.8 gm/dL (12.0-16.0); Immature Granulocytes Pct Auto 0.2 %; Lymphocytes Percent Auto 10.9 % (20-44); Mean Corpuscular HGB Conc 33 gm/dL (32-36); Mean Corpuscular Hemoglobin 27 pg (26-34); Mean Corpuscular Volume 84 fL (80-100); Monocytes Percent Auto 3.5 % (0.0-11.0); Neutrophils Percent Auto 85.2 % (42.0-72.0); Platelet Count* 274 K/uL (140-440); Red Blood Count 4.67 m/uL (4.00-5.20); Slide Review Reflex No; White Blood Count* 14.62 K/uL (4.50-11.00)
[2022-09-18 02:57] LABS: Albumin* 3.9 g/dL (3.3-5.0); Chloride* 104 mmol/L (96-114); Sodium* 135 mmol/L (135-149)
[2022-09-18] MEDS: hydrOXYzine pamoate 25 MG CAPSULE 100 MG PO ×2 (02:57→09:29)
[2022-09-18 02:58] LABS: Potassium* 3.3 mmol/L (3.6-5.1)
[2022-09-18 02:59] LABS: Amylase* 73 U/L (18-89)
[2022-09-18 03:00] LABS: Alanine Aminotransferase* 16 U/L (4-35); Alkaline Phosphatase* 116 U/L (40-150); Aspartate Amino Transferase* 17 U/L (12-35); Bilirubin Total* 0.5 mg/dL (0.1-1.5); Blood Urea Nitrogen* 6 mg/dL (5-24); Calcium* 9.1 mg/dL (8.4-10.6); Carbon Dioxide* 22 mmol/L (20-32); Creatinine* 0.5 mg/dL (0.5-1.5); Estimated Glomerular Filt Rate 126 ml/min; Glucose* 119 mg/dL (60-115); Lipase* 101 U/L (23-300); Total Protein* 7.6 g/dL (6.0-8.3)
[2022-09-18] MEDS: MORPHINE 4 MG/ML INJ IVP (03:28)
--- NOTE | 2022-09-18 03:40 | ED.GENADULT ---
HPI - General Adult General Chief complaint: Abdominal Pain Stated complaint: Vomiting Time Seen by Provider: 09/18/22 01:11 History of Present Illness HPI narrative: Pt is in her 3rd trimester with nausea, vomiting, elevated BP, and headache. She is appropriate to be seen on the [facility]. Related Data Home Medications Medication Instructions Recorded Confirmed prenat.vits,kristyn,dpi-ocnq-idqnn 1 tab PO QDAY 03/17/22 09/18/22 gabapentin 300 mg capsule 300 mg PO BID 06/23/22 09/18/22 sertraline 100 mg tablet 100 mg PO QDAY 09/17/22 09/18/22 Previous Rx's Medication Instructions Recorded Test Strips #100 ea 08/27/22 lancets #100 ea 08/27/22 hydroxyzine HCl 50 mg tablet 50 mg PO QHS #14 tabs 09/04/22 omeprazole 40 mg capsule,delayed 40 mg PO QDAY #90 caps 09/14/22 release nhoybsencs-xzsbmrikuoqwo-ckxuezmo 1 tab PO Q4-6H PRN pain #20 tabs 09/17/22 50 mg-325 mg-40 mg tablet enoxaparin 40 mg/0.4 mL 40 mg (0.4 mL) subcut QDAY #4 mL 09/17/22 subcutaneous syringe metoclopramide HCl 5 mg/5 mL oral 10 mg (10 mL) PO TID PRN nausea 09/17/22 solution and vomiting #1,000 mL trazodone 50 mg tablet 25 - 50 mg (0.5 - 1 x 50 mg) PO 09/17/22 QHS #30 tabs Allergies Allergy/AdvReac Type Severity Reaction Status Date / Time No Known Drug Allergies Allergy Verified 09/18/22 01:49 [facility] Medical History (Updated 09/18/22 @ 01:06 by Logan Quintanilla MD) Gestational diabetes ?O24.419 - Gestational diabetes mellitus in , unspecified control (ICD-10) Pulmonary embolism ?I26.99 - Other pulmonary embolism without acute cor pulmonale (ICD-10) Prothrombin gene mutation ?D68.52 - Prothrombin gene mutation (ICD-10) Gastritis ?K29.70 - Gastritis, unspecified, without bleeding (ICD-10) Social History Narrative: SOCIAL Education: [] Work: [] Partner: [] Lives with: [] Pets: [] Abuse: [Denies past/present] Special Diet: [Denies] Ok with a blood transfusion: [yes] Culture or spiritism beliefs: [denies] RISK FACTORS Exercise Times/wk: [] Depression/Anxiety: [] NARGIS: [] PHQ 9: [] Seat Belt Use: [Routinely] Smoking: [Denies past/present] Alcohol/day: [Denies while ] Caffeine: [] Drug Use: [Denies past/present] Chicken Pox: [Yes as a child] MRSA: [Denies] What is your current living situation: unable to answer Problems where you live: unable to answer In the past 12 months, utilities in danger of being shut off: unable to answer In the past 12 mos, have been you worried that your food would run out before you had money to buy more?: unable to answer In the past 12 mos, the food you bought just didn't last and you didn't have money to buy more?: unable to answer Smoking Status: Current some day smoker How often do you have a drink containing alcohol: never AUDIT-C Alcohol total score: 0 Non-prescribed substance use: former substance user and marijuana (any form) Non-prescribed substance use details: THC How often does anyone, including family, friends and others, physically hurt you: How often does anyone, including family, friends and others, insult or talk down to you: How often does anyone, including family, friends and others, threaten you with harm: How often does anyone, including family, friends and others, scream or curse at you: Little interest or pleasure in doing things: more than half the days Feeling down, depressed, or hopeless: more than half the days Exam Const: Vital Signs, click to edit/add: Vital Signs - 24 hr 09/18/22 01:17 09/18/22 01:43 09/18/22 02:14 Temperature 97.9 F 98 F Pulse Rate 76 Pulse Rate [Left P ulse Oximeter] 90 Respiratory Rate 20 18 Blood Pressure 146/85 H Blood Pressure [Ri ght Upper Arm] 143/93 H Pulse Oximetry 99 97 Oxygen Delivery Me thod Room Air 09/18/22 02:15 09/18/22 02:55 09/18/22 03:10 Temperature Pulse Rate 71 75 73 Pulse Rate [Left P ulse Oximeter] Respiratory Rate Blood Pressure 132/87 105/58 L 117/61 Blood Pressure [Ri ght Upper Arm] Pulse Oximetry Oxygen Delivery Me thod 09/18/22 03:25 Temperature Pulse Rate 79 Pulse Rate [Left P ulse Oximeter] Respiratory Rate Blood Pressure 116/73 Blood Pressure [Ri ght Upper Arm] Pulse Oximetry Oxygen Delivery Me thod Course Vital Signs Vital signs: Initial Vital Signs Temperature 97.9 F 09/18/22 01:17 Temperature Source Temporal Artery Scan 09/18/22 01:17 Pulse Rate 90 09/18/22 01:17 Pulse Rhythm Regular 09/18/22 01:17 Respiratory Rate 20 09/18/22 01:17 Blood Pressure 143/93 H 09/18/22 01:17 Blood Pressure Mean 109 H 09/18/22 01:17 Blood Pressure Position Sitting 09/18/22 01:17 Pulse Oximetry 99 09/18/22 01:17 Oxygen Delivery Method Room Air 09/18/22 01:17 Vital Signs Temperature 97.9 F 09/18/22 01:17 Pulse Rate 90 09/18/22 01:17 Respiratory Rate 20 09/18/22 01:17 Blood Pressure 143/93 H 09/18/22 01:17 Pulse Oximetry 99 09/18/22 01:17 Oxygen Delivery Method Room Air 09/18/22 01:17 Temperature 98 F 09/18/22 02:14 Pulse Rate 79 09/18/22 03:25 Respiratory Rate 18 09/18/22 02:14 Blood Pressure 116/73 09/18/22 03:25 Pulse Oximetry 97 09/18/22 01:43 Oxygen Delivery Method Room Air 09/18/22 01:17 Medical Decision Making Lab Data Labs: Lab Results 09/18/22 Range/Units 02:30 WBC 14.62 H (4.50-11.00) K/uL RBC 4.67 (4.00-5.20) m/uL Hgb 12.8 (12.0-16.0) gm/dL Hct 39.0 (33.0-51.0) % MCV 84 (80-100) fL MCH 27 (26-34) pg MCHC 33 (32-36) gm/dL RDW Coeff of Cira 14.0 (11.5-15.5) % Plt Count 274 (140-440) K/uL Neut % (Auto) 85.2 H (42.0-72.0) % Lymph % (Auto) 10.9 L (20-44) % [place] % (Auto) 3.5 (0.0-11.0) % Eos % (Auto) 0.1 (0.0-7.0) % Baso % (Auto) 0.1 (0.0-3.0) % Neut # (Auto) 12.50 H (1.7-7.0) K/uL Lymph # (Auto) 1.60 (0.90-2.90) K/uL [place] # (Auto) 0.50 (0.00-0.90) K/UL Eos # (Auto) 0.00 (0.00-0.50) K/uL Baso # (Auto) 0.00 (0.00-0.30) K/uL Sodium 135 (135-149) mmol/L Potassium 3.3 L (3.6-5.1) mmol/L Chloride 104 (96-114) mmol/L Carbon Dioxide 22 (20-32) mmol/L BUN 6 (5-24) mg/dL Creatinine 0.5 (0.5-1.5) mg/dL Estimated GFR 126 ml/min Glucose 119 H (60-115) mg/dL Calcium 9.1 (8.4-10.6) mg/dL Total Bilirubin 0.5 (0.1-1.5) mg/dL AST 17 (12-35) U/L ALT 16 (4-35) U/L Alkaline Phosphatase 116 (40-150) U/L Total Protein 7.6 (6.0-8.3) g/dL Albumin 3.9 (3.3-5.0) g/dL Amylase 73 (18-89) U/L Lipase 101 (23-300) U/L
[2022-09-18] MEDS: PROMETHAZINE 25 MG/ML INJ 12.5 MG IVP (03:48)
[2022-09-18] MEDS: LACTATED RINGERS 1000 ML 1,000 ML 500 ML IV ×2 (04:19→06:35)
--- NOTE | 2022-09-18 05:09 | CRLHL7_ITS ---
For Patients: As a result of the Century Cures Act, medical imaging exams and procedure reports are released immediately into your electronic medical record. You may view this report before your referring provider. If you have questions, please contact your health care provider. INDICATION: with abdomen pain. TECHNIQUE: Ultrasound OB pelvis transabdominal. Real-time hooks-scale imaging of the fetus was performed without stress testing. COMPARISON: September 14, 2022. FINDINGS: Intrauterine gestation: Present. heart rate: 139 BPM. Presentation: Cephalic. Placenta: Posterior. Amniotic fluid volume single deepest pocket 7 cm 2/2. motion 2/2. tone 2/2. breathing movements 2/2. IMPRESSION: Single viable intrauterine with a biophysical profile 11/10. Dictated by Alli Kennedy MD @ 09/18/2022 7:36:42 AM (Electronically Signed)
--- NOTE | 2022-09-18 05:14 | CRLHL7_ITS ---
For Patients: As a result of the Century Cures Act, medical imaging exams and procedure reports are released immediately into your electronic medical record. You may view this report before your referring provider. If you have questions, please contact your health care provider. INDICATION: Abdominal pain. TECHNIQUE: Ultrasound abdomen complete. Sonographic images of the entire abdomen were obtained using hooks-scale and color Doppler. COMPARISON: None. FINDINGS: Liver: Normal in size and echotexture. No suspicious masses. A benign cavernous hemangioma is present. No intrahepatic biliary dilatation. Gallbladder: Cholecystectomy. Common bile duct: 3 mm. Pancreas: Normal in size and appearance. Spleen: Normal in size and appearance. Kidneys: Both kidneys are normal in size. Normal echotexture and cortex. No suspicious masses, stones, or hydronephrosis. Vasculature: Proximal abdominal aorta and IVC are normal in caliber. Portal vein is patent with blood flow toward the liver. IMPRESSION: Unremarkable abdomen ultrasound. Dictated by Alli Kennedy MD @ 09/18/2022 7:44:06 AM (Electronically Signed)
[2022-09-18 05:40] LABS: Appearance Urine Cloudy (Clear); Bilirubin Urine Negative (Negative); Blood Urine Negative (Negative); Color Urine Yellow (Yellow); Glucose Urine Negative (Negative); Ketones Urine 4+ (Negative); Leukocyte Esterase Urine Negative (Negative); Nitrite Urine Negative (Negative); Protein Urine 1+ (Negative); Specific Gravity Urine 1.025 (1.000-1.030); Urobilinogen Urine 0.2 (0.2-1.0)
[2022-09-18 05:48] LABS: Amorphous Sediment Urine Moderate; Bacteria Urine Few; Mucus Urine Moderate; RBC Urine 0-2 (0-2); Squamous Epithelial Cell Urine Few (None-Few)
[2022-09-18] MEDS: MAG HYDROX/ALUMINUM HYD/SIMETH 30 ML ORAL.SUSP PO (08:00)
[2022-09-18] MEDS: ACETAMINOPHEN 500 MG TABLET 1000 MG PO (08:01)
[2022-09-18] MEDS: ONDANSETRON 2 MG/ML inj 4 MG IVP (09:15)
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
[2022-09-18] MEDS: PROCHLORPERAZINE 5 MG/ML VIAL 10 MG IV (11:30)
--- NOTE | 2022-09-18 12:19 | PC.OBNST ---
NST Note NST Note Start: 09/18/22 02:09 Freq: ONCE Status: Active Protocol: Document 09/18/22 11:30 [facility] (Rec: 09/18/22 12:17 [facility] [id number]) NST Note 4 Para (# of births) 3 EDC 11/12/22 Gestational Age In Weeks & Days 32 Weeks & 1 Days High Risk Factors High Blood Pressure - Preexisting,Diabetes - Gestational Diet Controlled, History of / Stillborn Patient Presented with Complaint(s) of Nausea and vomiting,Other Other Complaints Nausea and vomiting, severe upper abdominal pain Reactive Yes Appropriate for Gestational Age Yes FAYE Stewart RN Date 09/18/22 Reactive Yes Appropriate for Gestational Age Yes FAYE Avendaño MD Date 09/18/22 OB NST charge Yes Complete NST Note via Write Note Yes The provider's electronic signature indicates the NST is reactive/appropriate for gestational age. *Note to provider: If an addendum is required, open the patient's chart and click on the note under the Nurse/Allied Health tab.
--- NOTE | 2022-09-18 12:19 | PC.OBNST ---
NST Note NST Note Start: 09/18/22 02:09 Freq: ONCE Status: Active Protocol: Document 09/18/22 11:30 [facility] (Rec: 09/18/22 12:17 [facility] [id number]) NST Note 4 Para (# of births) 3 EDC 11/12/22 Gestational Age In Weeks & Days 32 Weeks & 1 Days High Risk Factors High Blood Pressure - Preexisting,Diabetes - Gestational Diet Controlled, History of / Stillborn Patient Presented with Complaint(s) of Nausea and vomiting,Other Other Complaints Nausea and vomiting, severe upper abdominal pain Reactive Yes Appropriate for Gestational Age Yes FAYE Stewart RN Date 09/18/22 Reactive Yes Appropriate for Gestational Age Yes FAYE Avendaño MD Date 09/18/22 OB NST charge Yes Complete NST Note via Write Note Yes The provider's electronic signature indicates the NST is reactive/appropriate for gestational age. *Note to provider: If an addendum is required, open the patient's chart and click on the note under the Nurse/Allied Health tab.
== END 2022-09-18 11:45 | disposition home or self-care (01) ==
LOC: ED 01:27 → OB OUT 01:28 → OB 01:28
PROVIDERS: Emergency Provider Family Medicine; Visit Provider Obstetrics & Gynecology
DX: R11.2 Nausea with vomiting, unspecified (principal)
CPT/HCPCS: 36415; 59025; 76700; 76819; 80053; 81003; 81015; 82150; 83690; 85025; 87086; 99213; 99281; A9270; C9113; J0780; J2270; J2405; J2550; J2765; J7120

== ENCOUNTER 2022-09-22 12:54 | Outpatient (CLI) | payer MEDICAID, SELFPAY ==
--- NOTE | 2022-09-22 14:00 | CRLHL7_ITS ---
For Patients: As a result of the Century Cures Act, medical imaging exams and procedure reports are released immediately into your electronic medical record. You may view this report before your referring provider. If you have questions, please contact your health care provider. INDICATION: 32 year-old female. Gestational diabetes mellitus. Evaluate well-being. TECHNIQUE: Limited transabdominal obstetrical ultrasound. COMPARISON: September 18, 2022. FINDINGS: Single living intrauterine in vertex presentation. Posterior placenta. heart rate 144 beats per minute. Normal amniotic fluid. Single deepest pocket measurement 4.2 cm, previously 7.3 cm. Biophysical profile score 8/8 with 2 points given each for breathing, movement, tone, and amniotic fluid. IMPRESSION: Biophysical profile score 8/8. Dictated by Jadiel Ward MD @ 09/22/2022 4:58:43 PM (Electronically Signed)
== END 2022-09-22 12:55 | disposition home or self-care (01) ==
LOC: US 12:55
PROVIDERS: Visit Provider Obstetrics & Gynecology
DX: O24.419 Gestational diabetes mellitus in pregnancy, unspecified control (principal)
CPT/HCPCS: 76819; T1013

== ENCOUNTER 2022-09-29 08:30 | Outpatient (CLI) | payer MEDICAID, SELFPAY | END 2022-09-29 08:31 | disposition home or self-care (01) | LOC: OR 10-02 08:07 | PROVIDERS: PCP Obstetrics & Gynecology; Visit Provider Anesthesiology | DX: O24.419 Gestational diabetes mellitus in pregnancy, unspecified control (principal) | CPT/HCPCS: T1013 ==

== ENCOUNTER 2022-09-29 09:05 | Outpatient (CLI) | payer MEDICAID, SELFPAY ==
--- NOTE | 2022-09-29 09:45 | CRLHL7_ITS ---
For Patients: As a result of the Century Cures Act, medical imaging exams and procedure reports are released immediately into your electronic medical record. You may view this report before your referring provider. If you have questions, please contact your health care provider. INDICATION: GESTATIONAL DIABETES COMPARISON: 09/22/2022 TECHNIQUE: Real time hooks scale imaging of the fetus was performed. Without non-stress testing. FINDINGS: Sonographic imaging demonstrates a single living intrauterine gestation. Fetus demonstrates a regular cardiac rate of 126 beats per minute. Fetus has a vertex position. The amniotic fluid volume appears normal and there is a single deepest pocket measurement of 6.6 cm. The fetus was active and demonstrated normal breathing movements. There was normal flexion and extension of the trunk and extremities. IMPRESSION: Normal biophysical profile score of 8 out of 8. Dictated by Logan Felix MD @ 09/29/2022 10:26:40 AM (Electronically Signed)
--- NOTE | 2022-09-30 14:12 | P.ANPROEV_ITS ---
[facility] Medical History (Updated 09/18/22 @ 18:47 by Diana Avendaño MD) Gestational diabetes ?O24.419 - Gestational diabetes mellitus in , unspecified control (ICD-10) Pulmonary embolism ?I26.99 - Other pulmonary embolism without acute cor pulmonale (ICD-10) Prothrombin gene mutation ?D68.52 - Prothrombin gene mutation (ICD-10) Gastritis ?K29.70 - Gastritis, unspecified, without bleeding (ICD-10) Social History Narrative: SOCIAL Education: [] Work: [] Partner: [] Lives with: [] Pets: [] Abuse: [Denies past/present] Special Diet: [Denies] Ok with a blood transfusion: [yes] Culture or zoroastrian beliefs: [denies] RISK FACTORS Exercise Times/wk: [] Depression/Anxiety: [] NARGIS: [] PHQ 9: [] Seat Belt Use: [Routinely] Smoking: [Denies past/present] Alcohol/day: [Denies while ] Caffeine: [] Drug Use: [Denies past/present] Chicken Pox: [Yes as a child] MRSA: [Denies] What is your current living situation: unable to answer Problems where you live: unable to answer In the past 12 months, utilities in danger of being shut off: unable to answer In the past 12 mos, have been you worried that your food would run out before you had money to buy more?: unable to answer In the past 12 mos, the food you bought just didn't last and you didn't have money to buy more?: unable to answer Smoking Status: Current some day smoker How often do you have a drink containing alcohol: never AUDIT-C Alcohol total score: 0 Non-prescribed substance use: former substance user and marijuana (any form) Non-prescribed substance use details: THC How often does anyone, including family, friends and others, physically hurt you : How often does anyone, including family, friends and others, insult or talk down to you: How often does anyone, including family, friends and others, threaten you with harm: How often does anyone, including family, friends and others, scream or curse at you: Little interest or pleasure in doing things: more than half the days Feeling down, depressed, or hopeless: more than half the days Meds Home Medications and Allergies Home Medications Medication Instructions Recorded Confirmed Type prenat.vits,kristyn,kxy-qwnv-nrvqa 1 tab PO QDAY 03/17/22 09/29/22 History gabapentin 300 mg capsule 300 mg PO BID 06/23/22 09/29/22 History sertraline 100 mg tablet 100 mg PO QDAY 09/17/22 09/29/22 History erythromycin 250 mg tablet 250 mg PO TID 09/22/22 09/29/22 History Allergies Allergy/AdvReac Type Severity Reaction Status Date / Time No Known Drug Allergies Allergy Verified 09/29/22 09:56 Focused Exam Airway Mallampti: I TM distance: >3 FB Neck ROM: full Other Findings Other Findings: back landmarks palpable Anesthesia Risk Status Procedure Date Seen: 09/29/22 History Anesthesia history: epidural History of anesthesia reactions: No Risk Assessed to be at risk for difficult intubation: No Assessment and Plan Assessment and plan (1) Obesity: Status: Acute (2) : Status: Inactive Plan Interpretor present. Patient had epidurals for prior deliveries without difficulty. No contraindication. Planning epidural for this delivery. Discussed timing and procedure including potential difficult placement. 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 we discussed other options for pain control including IV and nitrous. She would like an epidural
== END 2022-09-29 09:06 | disposition home or self-care (01) ==
LOC: US 09:06
PROVIDERS: Visit Provider Obstetrics & Gynecology
DX: O24.419 Gestational diabetes mellitus in pregnancy, unspecified control (principal)
CPT/HCPCS: 76819; T1013

== ENCOUNTER 2022-10-02 10:42 | Outpatient (CLI) | payer MEDICAID, SELFPAY | END 2022-10-02 10:43 | disposition home or self-care (01) | PROVIDERS: PCP Family Medicine; Visit Provider Obstetrics & Gynecology | DX: O24.419 Gestational diabetes mellitus in pregnancy, unspecified control (principal); Z3A.34 34 weeks gestation of pregnancy | CPT/HCPCS: 82565; 82570; 84156; 84450; 84460; 84520 ==

== ENCOUNTER 2022-10-02 12:19 | Outpatient (RCR) | payer MEDICAID, SELFPAY ==
--- NOTE | 2022-09-18 15:23 | ONC.NURNOTE ---
patient did not show up for infusion appt today client service consultant office had tried to reach patient and was unable patient has a provider follow up on Wednesday and client service consultant will follow up at that time
[2022-10-02 12:30] VITALS: BP 150/79; PULSE 83; RESP 16; TEMP 35.9; O2SAT 97
[2022-10-02] MEDS: LACTATED RINGERS 1000 ML IV (12:30)
== END 2023-03-31 23:59 | disposition home or self-care (01) ==
LOC: CCIC 12:19
PROVIDERS: PCP Family Medicine; Visit Provider Obstetrics & Gynecology
DX: E87.6 Hypokalemia (principal)
CPT/HCPCS: 96360; 96361; J7120

== ENCOUNTER 2022-10-05 09:42 | Outpatient (CLI) | payer MEDICAID, SELFPAY ==
--- NOTE | 2022-10-05 09:45 | CRLHL7_ITS ---
For Patients: As a result of the Century Cures Act, medical imaging exams and procedure reports are released immediately into your electronic medical record. You may view this report before your referring provider. If you have questions, please contact your health care provider. INDICATION: Gestational diabetes COMPARISON: 09/29/2022 TECHNIQUE: Real time hooks scale imaging of the fetus was performed. Without non-stress testing. FINDINGS: Sonographic imaging demonstrates a single living intrauterine gestation. Fetus demonstrates a regular cardiac rate of 134 beats per minute. Fetus has a vertex position. The amniotic fluid volume appears normal and there is a single deepest pocket measurement of 7.4 cm. The fetus was active and demonstrated normal breathing movements. There was normal flexion and extension of the trunk and extremities. IMPRESSION: Normal biophysical profile score of 8 out of 8. Dictated by Logan Felix MD @ 10/05/2022 12:27:33 PM (Electronically Signed)
== END 2022-10-05 09:43 | disposition home or self-care (01) ==
LOC: US 09:42
PROVIDERS: PCP Family Medicine; Visit Provider Obstetrics & Gynecology
DX: O24.419 Gestational diabetes mellitus in pregnancy, unspecified control (principal); Z3A.34 34 weeks gestation of pregnancy
CPT/HCPCS: 76819; T1013

== ENCOUNTER 2022-10-10 18:10 | Outpatient (CLI) | payer MEDICAID, SELFPAY ==
[2022-10-10] VITALS (21 sets, daily range): BP systolic 130; BP diastolic 85; PULSE 68–95; RESP 18; TEMP 37; O2SAT 92–100
[2022-10-10] MEDS: LACTATED RINGERS 1000 ML 1,000 ML IV (19:22)
[2022-10-10] MEDS: MORPHINE 2 MG/ML inj IVP ×2 (19:23→20:48)
[2022-10-10 19:36] LABS: Albumin* 3.9 g/dL (3.3-5.0)
[2022-10-10 19:37] LABS: Chloride* 105 mmol/L (96-114); Potassium* 3.3 mmol/L (3.6-5.1); Sodium* 136 mmol/L (135-149)
[2022-10-10 19:39] LABS: Aspartate Amino Transferase* 19 U/L (12-35); Bilirubin Total* 0.5 mg/dL (0.1-1.5); Carbon Dioxide* 19 mmol/L (20-32); Creatinine* 0.4 mg/dL (0.5-1.5); Estimated Glomerular Filt Rate 133 ml/min
[2022-10-10 19:40] LABS: Alanine Aminotransferase* 22 U/L (4-35); Alkaline Phosphatase* 143 U/L (40-150); Blood Urea Nitrogen* 9 mg/dL (5-24); Calcium* 9.2 mg/dL (8.4-10.6); Glucose* 97 mg/dL (60-115); Total Protein* 7.7 g/dL (6.0-8.3)
[2022-10-10] MEDS: PANTOPRAZOLE SODIUM 40 MG INJ IVP (19:50)
[2022-10-10] MEDS: PROMETHAZINE 25 MG/ML INJ 12.5 MG IVP (20:15)
[2022-10-10] MEDS: METOCLOPRAMIDE HCL 5 MG/ML INJ 10 MG IVP (20:48)
[2022-10-10] MEDS: POTASSIUM CHLORIDE 10 MEQ CAPSULE ER 20 MEQ PO (21:47)
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
--- NOTE | 2022-10-10 21:57 | PC.OBNST ---
NST Note NST Note Start: 10/10/22 18:15 Freq: ONCE Status: Active Protocol: Document 10/10/22 21:56 DEBI (Rec: 10/10/22 21:57 DEBI [id number]) NST Note 4 Para (# of births) 3 EDC 11/12/22 Gestational Age In Weeks & Days 35 Weeks & 2 Days High Risk Factors Diabetes - Gestational Diet Controlled Patient Presented with Complaint(s) of Nausea and vomiting Reactive Yes Appropriate for Gestational Age Yes FAYE sparrow rn Date 10/10/22 Reactive Yes Appropriate for Gestational Age Yes FAYE Richardson RNC Date 10/10/22 OB NST charge Yes Complete NST Note via Write Note Yes The provider's electronic signature indicates the NST is reactive/appropriate for gestational age. *Note to provider: If an addendum is required, open the patient's chart and click on the note under the Nurse/Allied Health tab.
== END 2022-10-10 21:57 | disposition home or self-care (01) ==
LOC: OB OUT 18:10 → OB 18:11
PROVIDERS: PCP Family Medicine; Visit Provider Obstetrics & Gynecology
DX: O24.419 Gestational diabetes mellitus in pregnancy, unspecified control (principal); Z3A.35 35 weeks gestation of pregnancy
CPT/HCPCS: 36415; 59025; 80053; 99213; A9270; C9113; J2270; J2550; J2765; J7120

== ENCOUNTER 2022-10-12 02:44 | Outpatient (CLI) | payer MEDICAID, SELFPAY ==
[2022-10-12] VITALS (10 sets, daily range): BP systolic 100–112; BP diastolic 61–74; PULSE 69–96; RESP 18; TEMP 36.5; O2SAT 86–100
[2022-10-12] MEDS: MORPHINE 10 MG/ML inj IM (04:01)
[2022-10-12] MEDS: MAGNESIUM HYDROXIDE 30 ML ORAL.SUSP PO ×2 (04:42→20:15)
[2022-10-12] MEDS: PANTOPRAZOLE SODIUM 40 MG INJ IVP (04:42)
[2022-10-12] MEDS: hydrOXYzine pamoate 25 MG CAPSULE 100 MG PO (04:42)
[2022-10-12 05:03] LABS: Basophils Percent Auto 0.1 % (0.0-3.0); Eosinophils Percent Auto 0.1 % (0.0-7.0); Hematocrit 37.7 % (33.0-51.0); Hemoglobin* 12.3 gm/dL (12.0-16.0); Immature Granulocytes Pct Auto 0.6 %; Lymphocytes Percent Auto 14.2 % (20-44); Mean Corpuscular HGB Conc 33 gm/dL (32-36); Mean Corpuscular Hemoglobin 27 pg (26-34); Mean Corpuscular Volume 84 fL (80-100); Monocytes Percent Auto 7.1 % (0.0-11.0); Neutrophils Percent Auto 77.9 % (42.0-72.0); Platelet Count* 279 K/uL (140-440); RDW Coefficient of Variation % 15.1 % (11.5-15.5); Red Blood Count 4.49 m/uL (4.00-5.20); White Blood Count* 11.53 K/uL (4.50-11.00)
[2022-10-12 05:11] LABS: Slide Review Reflex No
[2022-10-12] MEDS: LACTATED RINGERS 1000 ML 1,000 ML 500 ML IV ×2 (05:13→06:33)
[2022-10-12 05:14] LABS: Chloride* 102 mmol/L (96-114)
[2022-10-12 05:15] LABS: Albumin* 3.6 g/dL (3.3-5.0); Potassium* 3.3 mmol/L (3.6-5.1); Sodium* 134 mmol/L (135-149)
--- NOTE | 2022-10-12 05:16 | PC.OBNST ---
NST Note NST Note Start: 10/12/22 02:57 Freq: ONCE Status: Active Protocol: Document 10/12/22 05:10 AKIKO (Rec: 10/12/22 05:13 AKIKO [id number]) NST Note 4 Para (# of births) 2 EDC 11/12/22 Gestational Age In Weeks & Days 35 Weeks & 4 Days High Risk Factors Diabetes - Gestational Diet Controlled,History of /Stillborn Patient Presented with Complaint(s) of Pain If Pain, describe location abdominal pain in the left upper quadrant Other Complaints would like to be induced because the baby's size is causing her pain Reactive Yes Appropriate for Gestational Age Yes FAYE Meyer RNC Date 10/12/22 Reactive Yes Appropriate for Gestational Age Yes FAYE Bergman RN Date 10/12/22 OB NST charge Yes Complete NST Note via Write Note Yes The provider's electronic signature indicates the NST is reactive/appropriate for gestational age. *Note to provider: If an addendum is required, open the patient's chart and click on the note under the Nurse/Allied Health tab.
[2022-10-12 05:17] LABS: Creatinine* 0.5 mg/dL (0.5-1.5); Estimated Glomerular Filt Rate 126 ml/min
[2022-10-12 05:18] LABS: Alanine Aminotransferase* 38 U/L (4-35); Alkaline Phosphatase* 133 U/L (40-150); Aspartate Amino Transferase* 41 U/L (12-35); Bilirubin Total* 0.7 mg/dL (0.1-1.5); Blood Urea Nitrogen* 7 mg/dL (5-24); Calcium* 8.8 mg/dL (8.4-10.6); Carbon Dioxide* 22 mmol/L (20-32); Glucose* 89 mg/dL (60-115); Total Protein* 7.1 g/dL (6.0-8.3)
[2022-10-12] MEDS: MORPHINE 2 MG/ML inj IVP ×7 (06:14→23:59)
[2022-10-12] MEDS: BETAMETHASONE SOD PHOS/ACETATE 6 MG/ML ML 12 MG IM (06:34)
[2022-10-12] MEDS: METOCLOPRAMIDE 10 MG TABLET PO (09:01)
[2022-10-12] MEDS: SODIUM CHLORIDE 0.9 % (FLUSH) 10 ML SYRINGE IVF (09:02)
[2022-10-12] MEDS: OMEPRAZOLE 20 MG CAPSULE DR 40 MG PO (09:02)
[2022-10-12] MEDS: ENOXAPARIN 40 MG/0.4 ML INJ SUBCUT (09:03)
[2022-10-12] MEDS: POTASSIUM CHLORIDE 10 MEQ/100 ML PIGGYBACK 100 MEQ IVPB (09:07)
--- NOTE | 2022-10-12 14:00 | CRLHL7_ITS ---
For Patients: As a result of the Century Cures Act, medical imaging exams and procedure reports are released immediately into your electronic medical record. You may view this report before your referring provider. If you have questions, please contact your health care provider. INDICATION: CHRONIC HTN, GDM, HX STILLBORN, PAIN TECHNIQUE: Real time hooks scale imaging of the fetus was performed. COMPARISON: 09/14/2022 FINDINGS: Sonographic imaging demonstrates a single living intrauterine gestation. Fetus demonstrates a regular cardiac rate of 123 beats per minute. Fetus has a vertex position. The placenta lies posteriorly. Amniotic fluid volume appears normal and there is a single deepest pocket of 7.4 cm. The estimated weight is 2721gm which lies at the 50th %. On the prior OB ultrasound dated 09/14/2022 the estimated weight was at the 93rd percentile. BPD 26th percentile. HC 44th percentile. AC 79th percentile. FL 13th percentile. The fetus was active. Absent breathing movements. There was normal flexion and extension of the trunk and extremities. IMPRESSION: Biophysical profile 09/10. Sonographic gestational age 35 weeks 3 days and sonographic due date 11/13/2022. Good correlation with dates. Estimated weight 50th percentile. Abdominal circumference 79th percentile. Dictated by Logan Felix MD @ 10/13/2022 4:59:49 PM (Electronically Signed)
[2022-10-12] MEDS: CALCIUM CARBONATE 500 MG CHEW PO (16:03)
[2022-10-12] MEDS: LACTATED RINGERS 1000 ML 1,000 ML 125 ML IV (16:05)
[2022-10-12 16:49] LABS: Hematocrit 36.1 % (33.0-51.0); Hemoglobin* 11.8 gm/dL (12.0-16.0); Mean Corpuscular HGB Conc 33 gm/dL (32-36); Mean Corpuscular Hemoglobin 27 pg (26-34); Mean Corpuscular Volume 84 fL (80-100); Platelet Count* 243 K/uL (140-440); Red Blood Count 4.32 m/uL (4.00-5.20); White Blood Count* 10.06 K/uL (4.50-11.00)
[2022-10-12 16:51] LABS: Slide Review Reflex No
[2022-10-12 17:05] LABS: Alanine Aminotransferase* 45 U/L (4-35); Aspartate Amino Transferase* 43 U/L (12-35); Bilirubin Direct* 0.3 mg/dL (0.0-0.5); Bilirubin Total* 0.6 mg/dL (0.1-1.5); Blood Urea Nitrogen* 5 mg/dL (5-24); Creatinine* 0.4 mg/dL (0.5-1.5); Estimated Glomerular Filt Rate 133 ml/min
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
[2022-10-12] MEDS: DOCUSATE SODIUM 100 MG CAPSULE PO (20:16)
[2022-10-12 20:55] LABS: Total Protein Urine 27 mg/dL
[2022-10-12] MEDS: hydrOXYzine pamoate 25 MG CAPSULE 50 MG PO (21:58)
[2022-10-12] MEDS: ERYTHROMYCIN BASE 250 MG TABLET PO (22:13)
[2022-10-12 22:16] LABS: Chloride* 102 mmol/L (96-114); Potassium* 3.4 mmol/L (3.6-5.1); Sodium* 132 mmol/L (135-149)
[2022-10-12 22:19] LABS: Carbon Dioxide* 24 mmol/L (20-32)
--- NOTE | 2022-10-12 22:49 | PC.NURSE ---
Shift note [id number]:Pt alert, oriented, and able to verbalize needs. Continues to c/o 7/10 abdominal pain that improves briefly with pain med administrations but returns several hours later. Tolerating sips of clears/chips diet without increased nausea/vomiting or breakthrough pain. BP 118/77 and HR 82. Pt moving throughout room independently and able to shower this evening. Urine sample collected and sent to lab, results pending.
[2022-10-13] MEDS: LACTATED RINGERS 1000 ML 1,000 ML 125 ML IV ×2 (00:45→09:37)
[2022-10-13] MEDS: MORPHINE 2 MG/ML inj IVP ×4 (02:42→11:03)
[2022-10-13] MEDS: METOCLOPRAMIDE 10 MG TABLET PO (02:51)
[2022-10-13 04:23] LABS: Hematocrit 36.4 % (33.0-51.0); Hemoglobin* 11.9 gm/dL (12.0-16.0); Mean Corpuscular HGB Conc 33 gm/dL (32-36); Mean Corpuscular Hemoglobin 27 pg (26-34); Mean Corpuscular Volume 83 fL (80-100); Platelet Count* 249 K/uL (140-440); White Blood Count* 11.17 K/uL (4.50-11.00)
[2022-10-13 04:25] LABS: Slide Review Reflex No
[2022-10-13 04:35] LABS: Chloride* 104 mmol/L (96-114); Potassium* 3.2 mmol/L (3.6-5.1); Sodium* 134 mmol/L (135-149)
[2022-10-13 04:39] LABS: Alanine Aminotransferase* 60 U/L (4-35); Aspartate Amino Transferase* 55 U/L (12-35); Blood Urea Nitrogen* 3 mg/dL (5-24); Carbon Dioxide* 24 mmol/L (20-32); Creatinine* 0.4 mg/dL (0.5-1.5); Estimated Glomerular Filt Rate 133 ml/min
[2022-10-13 08:45] VITALS: BP 129/83; PULSE 70; RESP 16; TEMP 36.9; O2SAT 99
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
[2022-10-13] MEDS: SERTRALINE 100 MG TABLET PO (10:01)
[2022-10-13] MEDS: OMEPRAZOLE 20 MG CAPSULE DR 40 MG PO (10:01)
[2022-10-13] MEDS: ENOXAPARIN 40 MG/0.4 ML INJ SUBCUT (10:01)
[2022-10-13 10:23] LABS: Hemoglobin* 12.1 gm/dL (12.0-16.0); Mean Corpuscular HGB Conc 33 gm/dL (32-36); Mean Corpuscular Hemoglobin 27 pg (26-34); Mean Corpuscular Volume 84 fL (80-100); Platelet Count* 250 K/uL (140-440); Red Blood Count 4.43 m/uL (4.00-5.20)
[2022-10-13 10:25] LABS: Slide Review Reflex No
[2022-10-13] MEDS: ERYTHROMYCIN BASE 250 MG TABLET PO (10:31)
[2022-10-13 10:39] LABS: Alanine Aminotransferase* 66 U/L (4-35); Aspartate Amino Transferase* 56 U/L (12-35); Blood Urea Nitrogen* 4 mg/dL (5-24); Creatinine* 0.5 mg/dL (0.5-1.5); Estimated Glomerular Filt Rate 126 ml/min
--- NOTE | 2022-10-13 15:24 | PC.SOCIAL ---
Received a phone call from nurse (Sarah) in OB. Pt is transferring to [facility] in cities and pt's partner is in need of transportation to the [facility]. Pt does not have family that can take pt's partner. Patient Advocate discussed with [employer], Tiffanie Almendarez, and received approval to pay for transportation for pt's partner to get to the [facility]. Phone call to Faith Sanders with [employer] at [phone]. Faith will provide transportation at 4:00 pm. Faith will go to the Emergency Department doors and meet pt's partner (Erik) and nurse (Sarah). Faith is aware that she will bill [facility] with the voucher provided. Provided information to nurse (Sarah) in OB. Updated patient advocate. Social work will follow up as needed.
== END 2022-10-13 11:18 | disposition other institution (70) ==
LOC: OB OUT 02:44 → OB 02:45
PROVIDERS: Obstetrics & Gynecology; PCP Family Medicine; Visit Provider Obstetrics & Gynecology
DX: O24.419 Gestational diabetes mellitus in pregnancy, unspecified control (principal); O10.913 Unspecified pre-existing hypertension complicating pregnancy, third trimester; O09.293 Supervision of pregnancy with other poor reproductive or obstetric history, third trimester; Z3A.35 35 weeks gestation of pregnancy
CPT/HCPCS: 36415; 59025; 76816; 76819; 80051; 80053; 82247; 82248; 82565; 82570; 82962; 84156; 84450; 84460; 84520; 85025; 85027; 99213; T1013; A9270; C9113; J0702; J1650; J2270; J3480; J7120

== ENCOUNTER 2022-10-12 09:45 | Outpatient (CLI) | payer MEDICAID, SELFPAY | END 2022-10-12 09:46 | disposition home or self-care (01) | LOC: US 11-05 12:02 | PROVIDERS: PCP Family Medicine; Visit Provider Obstetrics & Gynecology | DX: O24.419 Gestational diabetes mellitus in pregnancy, unspecified control (principal) | CPT/HCPCS: T1013 ==

== ENCOUNTER 2022-10-13 11:05 | Outpatient (CLI) | payer MEDICAID, SELFPAY ==
--- NOTE | 2022-10-26 14:04 | PC.SOCIAL ---
Phone call to [facility] CPS to inform that drug umb. cord screening results are completed and will fax report to them. Faxed report to [facility] CPS at [phone]. Social work will follow up as needed.
== END 2022-10-13 11:06 | disposition home or self-care (01) ==
LOC: AMB 10-14 09:44
PROVIDERS: PCP Family Medicine; Visit Provider Family Medicine
DX: R10.10 Upper abdominal pain, unspecified (principal)
CPT/HCPCS: T1013; A0425; A0427; A0428

== ENCOUNTER 2022-10-20 09:53 | Outpatient (CLI) | payer MEDICAID, SELFPAY ==
--- NOTE | 2022-10-20 09:45 | CRLHL7_ITS ---
For Patients: As a result of the Century Cures Act, medical imaging exams and procedure reports are released immediately into your electronic medical record. You may view this report before your referring provider. If you have questions, please contact your health care provider. INDICATION: Chronic hypertension. Gestational diabetes mellitus. COMPARISON: October 05, 2022. TECHNIQUE: Real time hooks scale imaging of the fetus was performed. Without non-stress testing. FINDINGS: Sonographic imaging demonstrates a single living intrauterine gestation. Fetus demonstrates a regular cardiac rate of 132 beats per minute. Fetus has a vertex orientation. The amniotic fluid volume appears normal and there is a single deepest pocket measurement of 4.8 cm. The fetus was active and demonstrated normal breathing movements. There was normal flexion and extension of the trunk and extremities. IMPRESSION: Normal biophysical profile score of 8 out of 8. Dictated by Jadiel Ward MD @ 10/20/2022 11:16:58 AM (Electronically Signed)
== END 2022-10-20 09:54 | disposition home or self-care (01) ==
LOC: US 09:54
PROVIDERS: PCP Family Medicine; Visit Provider Obstetrics & Gynecology
DX: Z34.93 Encounter for supervision of normal pregnancy, unspecified, third trimester (principal); Z3A.36 36 weeks gestation of pregnancy
CPT/HCPCS: 76819; T1013

== ENCOUNTER 2022-10-20 10:49 | Outpatient (CLI) | payer MEDICAID, SELFPAY ==
[2022-10-21 14:50] LABS: Strep B DNA Probe NEGATIVE (Negative)
[2022-10-22 02:30] LABS: Strep B Pen/Amox Allergy No
== END 2022-10-20 10:50 | disposition home or self-care (01) ==
PROVIDERS: PCP Family Medicine; Visit Provider Obstetrics & Gynecology
DX: O24.419 Gestational diabetes mellitus in pregnancy, unspecified control (principal); O10.919 Unspecified pre-existing hypertension complicating pregnancy, unspecified trimester
CPT/HCPCS: 76819; 82565; 82570; 84156; 84450; 84460; 84520; 87081; 87653

== ENCOUNTER 2022-10-21 16:34 | Inpatient (IN) | payer MEDICAID, SELFPAY ==
[2022-10-21] VITALS (9 sets, daily range): BP systolic 115–125; BP diastolic 68–76; PULSE 84–101; RESP 16–18; TEMP 36.5–37.3; O2SAT 98; BMI 42.7
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
[2022-10-21] MEDS: LACTATED RINGERS 1000 ML 1,000 ML 1125 ML IV (17:45)
[2022-10-21 17:50] LABS: Basophils Percent Auto 0.2 % (0.0-3.0); Eosinophils Percent Auto 0.3 % (0.0-7.0); Hematocrit 38.1 % (33.0-51.0); Hemoglobin* 12.3 gm/dL (12.0-16.0); Immature Granulocytes Pct Auto 0.2 %; Lymphocytes Percent Auto 21.1 % (20-44); Mean Corpuscular HGB Conc 32 gm/dL (32-36); Mean Corpuscular Hemoglobin 27 pg (26-34); Mean Corpuscular Volume 84 fL (80-100); Monocytes Percent Auto 5.5 % (0.0-11.0); Neutrophils Percent Auto 72.7 % (42.0-72.0); Platelet Count* 253 K/uL (140-440); RDW Coefficient of Variation % 15.3 % (11.5-15.5); Red Blood Count 4.53 m/uL (4.00-5.20); White Blood Count* 12.52 K/uL (4.50-11.00)
[2022-10-21 17:55] LABS: Slide Review Reflex No
[2022-10-21 18:03] LABS: Albumin* 3.7 g/dL (3.3-5.0); Chloride* 104 mmol/L (96-114); Sodium* 135 mmol/L (135-149)
[2022-10-21 18:04] LABS: Potassium* 3.2 mmol/L (3.6-5.1)
[2022-10-21 18:06] LABS: Alkaline Phosphatase* 109 U/L (40-150); Aspartate Amino Transferase* 21 U/L (12-35); Bilirubin Total* 0.3 mg/dL (0.1-1.5); Blood Urea Nitrogen* 11 mg/dL (5-24); Carbon Dioxide* 22 mmol/L (20-32); Creatinine* 0.6 mg/dL (0.5-1.5); Estimated Glomerular Filt Rate 121 ml/min; Total Protein* 7.2 g/dL (6.0-8.3)
[2022-10-21 18:07] LABS: Alanine Aminotransferase* 28 U/L (4-35); Calcium* 8.6 mg/dL (8.4-10.6); Glucose* 111 mg/dL (60-115)
[2022-10-21] MEDS: MAG HYDROX/ALUMINUM HYD/SIMETH 30 ML ORAL.SUSP PO (19:22)
[2022-10-21] MEDS: METOCLOPRAMIDE 10 MG TABLET PO (19:22)
[2022-10-21] MEDS: POTASSIUM CHLORIDE 10 MEQ/100 ML PIGGYBACK 100 MEQ IVPB ×4 (19:48→23:57)
[2022-10-21] MEDS: GABAPENTIN 300 MG CAPSULE PO (19:55)
[2022-10-21] MEDS: MIRTAZAPINE 15 MG TABLET 7.5 MG PO (19:57)
[2022-10-21] MEDS: hydrOXYzine pamoate 25 MG CAPSULE 100 MG PO (20:02)
[2022-10-21] MEDS: MORPHINE 10 MG/ML inj IM (20:02)
[2022-10-21] MEDS: LACTATED RINGERS 1000 ML 1,000 ML 125 ML IV (21:26)
[2022-10-21 22:49] LABS: Amphetamine Screen Urine Negative (Negative); Barbiturate Screen Urine Negative (Negative); Benzodiazepines Screen Urine Negative (Negative); Cocaine Screen Urine Negative (Negative); Methadone Screen Urine Negative (Negative); Methamphetamines Screen Urine Negative (Negative); Oxycodone Screen Urine Negative (Negative); Phencyclidine Screen Urine Negative (Negative); Tricyclic Antidepressant Urine Negative (Negative)
[2022-10-21 23:01] LABS: Cannabinoid Screen Urine POSITIVE (Negative); Opiate Screen Urine POSITIVE (Negative)
[2022-10-22] VITALS (57 sets, daily range): BP systolic 100–154; BP diastolic 58–91; PULSE 65–96; RESP 16–18; TEMP 36.3–36.8; O2SAT 97–100
[2022-10-22] MEDS: OXYTOCIN 30 unit/500 ML in NS 30 UNIT/500 ML BAG IVPB (03:05)
[2022-10-22] MEDS: LACTATED RINGERS 1000 ML 1,000 ML IV (05:34)
[2022-10-22] MEDS: ROPIVACAINE 0.2% 100 ml 100 ML 12 MG EPIDURAL (06:01)
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
--- NOTE | 2022-10-22 06:21 | P.OBPN_ITS ---
Subjective Time Seen by Provider: 06:15 Date Seen: 10/22/22 Narrative: Subjective: The Cook catheter fell out just before 3am today. Low dose pitocin started at 3am. At that time her cervix exam was: 4.5/70/-2 per nursing. The patient is comfortable with an epidural that she received at approximately 6:00 a.m. Pitocin: To milliunits/minute. Vital signs: Per electronic medical record. EFM: Baseline 136, accelerations: Present. Decelerations: Absent. Moderate variability, reactive. Category 1. [place]: Contractions every 2-3 minutes. SVE: 7 cm/70 %/-2: Bulging bag of water. Assessment: 32-year-old 4 para 2112 at 37 weeks 0 days gestation undergoing induction of labor for multiple medical issues in . Plan: 1. Continue Pitocin per labor induction protocol. 2. Expecting vaginal delivery Objective Vital Signs: Last Vital Signs Temp 97.7 F 10/22/22 06:03 Pulse 71 10/22/22 06:18 Resp 18 10/22/22 06:03 BP 116/71 10/22/22 06:18 Pulse Ox 98 10/21/22 17:01
[2022-10-22] MEDS: LACTATED RINGERS 1000 ML 1,000 ML 125 ML IV (07:27)
[2022-10-22] MEDS: 5 % DEXTROSE/0.9% SOD CHLORIDE 1,000 ML 125 ML IV (07:41)
--- NOTE | 2022-10-22 07:55 | P.OBPN_ITS ---
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 IOL ongoing, has progressed normally. AROM this morning, clear fluid. Epidural in place and patient is very comfortable. NST category 1. GBS negative no need for antibiotic prophylaxis. 2. CHTN: Some elevated blood pressures, none on severity range, normal preE admission labs. Will continue to monitor v/s closely. 3. GDM: This morning low blood sugar, D5 IVFs started per protocol, will continue to monitor. 4. Anticoagulation:Needs compression stockings placed. Plan to restart anticoagulation 6-12 hours after vaginal delivery, 12-24 after if needed.
[2022-10-22] MEDS: ONDANSETRON 2 MG/ML inj 4 MG IV (08:19)
[2022-10-22] MEDS: VENLAFAXINE HCL 37.5 MG TABLET 75 MG PO (09:08)
[2022-10-22] MEDS: OMEPRAZOLE 20 MG CAPSULE DR 40 MG PO (09:08)
[2022-10-22] MEDS: METOCLOPRAMIDE 10 MG TABLET PO ×2 (09:08→21:12)
[2022-10-22] MEDS: GABAPENTIN 300 MG CAPSULE PO (09:08)
[2022-10-22] MEDS: polyethylene glycoL 3350 17 GM PACK PO (09:08)
[2022-10-22] MEDS: PHENYLEPHRINE 100 MCG/ML SYRINGE IVP (10:15)
--- NOTE | 2022-10-22 11:53 | W.PM.OBVAGDE ---
OB Procedure Vag Delivery Mother Details Mother Details: The patient is a 32 year-old, 4, Para 3, admitted on 10/21/22 at 36 6/7 weeks gestation for IOL due to multiple medical comorbidities, such as uncontrolled gastroparesis, history of PE on anticoagulation, CHTN, GDMA1. IOL started yesterday evening with placement of a cook catheter, IV oxytocin started at around 3am. At this same time cook catheter was noted to come out and patient was found to be about 5cm. She progressed after this time and received an epidural at around 6am. : 4 Para: 3 Weeks Gestation: 37 Admission Date: 10/21/22 Additional Details Amniotic Membrane Status: AROM Amniotic Membrane Rupture Date: 10/22/22 Amniotic Membrane Rupture Time: 07:39 Amniotic Membrane Fluid Description: Clear Analgesia/Anesthesia Type: Epidural Waterbirth: No Pitcoin: Yes Intrapartal Events: Labor Induction Induction Method: Intracervical balloon catheter, per pitocin protocol and AROM Delivery augmentation: rupture of membranes and pitocin Labor Onset: 03:50 Complete: 11:29 Pushin:34 Heart: heart tones during second stage were category 2, had one deep deceleration when she was found complete. Patient was positioned in lithotomy and w/o pushing head was seen to have delivered, patient pushed one and assisted delivery of the rest of the body. Delivery Details Delivery Date: 10/22/22 Delivery Time: 11:34 Route of delivery: Infant Gender: Male Viability: Alive; Heart Rate Present Position at Delivery: OA Delivery Details: Delivered over intact perineum via spontaneous vaginal delivery. Infant was placed on maternal abdomen.? Cord was clamped and cut after a 30-60 second delay. Nose and mouth were bulb suctioned.? weight 5 pounds 12 ounces. 1 Minute Interval Total Score: 5 5 Minute Interval Total Score: 8 Additional Details Shoulder Dystocia: No Placenta Delivery Time: 11:40 Placental Delivery Description: Spontaneous Procedure Done: Global Blood Loss: 50 Laceration: None Blood Loss Measurement Type: QBL Bakri Used: No Sponge/Need Count Correct: Yes Cord Vessel Description: 3 Vessels and Nuchal Cord Event Summary Status: Mother and were stable after delivery. Disposition: floor
--- NOTE | 2022-10-22 14:28 | PC.SOCIAL ---
Child Protection report made to [facility] CPS due to positive drug screen for THC. Social work will follow up as needed.
[2022-10-22] MEDS: IBUPROFEN 600 MG TABLET PO ×2 (14:40→21:12)
[2022-10-22] MEDS: ACETAMINOPHEN 500 MG TABLET 1000 MG PO (17:22)
[2022-10-22] MEDS: DOCUSATE SODIUM 100 MG CAPSULE PO (21:12)
[2022-10-22] MEDS: ENOXAPARIN 40 MG/0.4 ML INJ SUBCUT (21:13)
[2022-10-23 00:30] VITALS: BP 125/84; PULSE 72; RESP 16; TEMP 37.1; O2SAT 96
[2022-10-23] MEDS: MIRTAZAPINE 15 MG TABLET 7.5 MG PO ×2 (00:30→22:05)
[2022-10-23] MEDS: ACETAMINOPHEN 500 MG TABLET 1000 MG PO ×3 (02:32→18:25)
[2022-10-23 05:00] VITALS: BP 107/71; PULSE 68; RESP 16; TEMP 36.6; O2SAT 96
[2022-10-23 06:52] LABS: Hemoglobin* 12.1 gm/dL (12.0-16.0)
[2022-10-23 07:40] VITALS: BP 122/84; PULSE 68; RESP 16; TEMP 36.8; O2SAT 95
--- NOTE | 2022-10-23 07:52 | PM.OBPNVD1 ---
OB - PN:Subj Subjective Date Seen: 10/23/22 Narrative: Kayleigh is a 32 y.o. who was admitted to [facility] for induction of labor for multiple comorbidities including Chronic Hypertension, history of PE, and gestational diabetes. ?She had an uncomplicated NVD.?The patient feels well. ?The pain is well controlled with current medications. ?She has no new complaints. ?She is breast feeding and reports things are going well.? the patient has done well.? Vitals have been stable.? She has remained afebrile.? Has a good appetite, is tolerating a general diet. ?She is voiding without difficulty.? She is passing gas and has not had a bowel movement.? She is ambulating and denies any dizziness.? Has small amount of rubra lochia. OB - PN: Obj Exam Physical Exam: Vital signs: Temp Pulse Resp BP Pulse Ox O2 Del Method 97.8 F 68 16 107/71 96 Room Air 10/23/22 05:00 10/23/22 05:00 10/23/22 05:00 10/23/22 05:00 10/23/22 05:00 10/23/22 05:00 Narrative: GENERAL APPEARANCE:? normal affect, alert, no distress MOOD:? appropriate CHEST:? clear to auscultation HEART:? regular rate and rhythm ABDOMEN:? soft, non-tender the uterine fundus is at Umbilicus, Midline and is appropriate for the stage of recovery. PERINEUM:? mild edema of the perineum. EXTREMITIES:? normal and trace edema OB - PN: Obj Data Labs Labs: Laboratory Results - last 24 hr 10/23/22 06:31 Hgb 12.1 OB - PN: A/P Delivery Assessment and Plan (1) care and examination immediately after delivery: Status: Acute (2) Lactating mother: Status: Acute (3) Normal vaginal delivery: Status: Acute (4) History of pulmonary embolism: Status: Acute (5) Anxiety: Status: Acute (6) Depression: Status: Acute (7) Gestational diabetes: Problem details: Uncontrolled Status: Acute (8) Gastroparesis: Status: Acute (9) Chronic hypertension: Status: Acute Plan day: 1 Comments: Routine care , may see if needed Continue to monitor BP. fasting BG, 89. Needs GDM follow-up at 6 week visit.
[2022-10-23] MEDS: IBUPROFEN 600 MG TABLET PO ×3 (08:11→22:05)
[2022-10-23] MEDS: DOCUSATE SODIUM 100 MG CAPSULE PO ×2 (10:43→22:05)
[2022-10-23] MEDS: OMEPRAZOLE 20 MG CAPSULE DR 40 MG PO (10:44)
[2022-10-23] MEDS: ENOXAPARIN 40 MG/0.4 ML INJ SUBCUT ×2 (10:45→22:05)
[2022-10-23] MEDS: VENLAFAXINE HCL 37.5 MG TABLET 75 MG PO (10:52)
[2022-10-23] MEDS: GABAPENTIN 300 MG CAPSULE PO ×2 (10:53→22:04)
[2022-10-23] MEDS: polyethylene glycoL 3350 17 GM PACK PO (10:53)
[2022-10-23 12:15] VITALS: BP 107/72; PULSE 79; TEMP 36.9; O2SAT 98
[2022-10-23] MEDS: METOCLOPRAMIDE 10 MG TABLET PO (13:52)
[2022-10-23 20:04] VITALS: BP 103/97; PULSE 77; RESP 16; TEMP 37; O2SAT 96
[2022-10-24] MEDS: ACETAMINOPHEN 500 MG TABLET 1000 MG PO ×2 (00:33→08:04)
[2022-10-24 00:35] VITALS: BP 104/69; PULSE 72; RESP 18; TEMP 36.8; O2SAT 95
[2022-10-24] MEDS: IBUPROFEN 600 MG TABLET PO ×2 (06:14→06:25)
[2022-10-24 07:30] VITALS: BP 104/67; PULSE 70; RESP 16; TEMP 36.7; O2SAT 97
[2022-10-24] MEDS: VENLAFAXINE HCL 37.5 MG TABLET 75 MG PO (08:04)
[2022-10-24] MEDS: DOCUSATE SODIUM 100 MG CAPSULE PO (08:04)
[2022-10-24] MEDS: SIMETHICONE 80 MG TAB.CHEW PO (08:04)
[2022-10-24] MEDS: OMEPRAZOLE 20 MG CAPSULE DR 40 MG PO (08:05)
[2022-10-24] MEDS: GABAPENTIN 300 MG CAPSULE PO (08:05)
[2022-10-24] MEDS: polyethylene glycoL 3350 17 GM PACK PO (08:05)
[2022-10-24] MEDS: ENOXAPARIN 40 MG/0.4 ML INJ SUBCUT (08:06)
--- NOTE | 2022-10-24 10:09 | P.DS_ITS ---
DS: Providers Provider Time Seen by Provider: 09:00 Date Seen: 10/24/22 Date of admission: 10/21/22 16:34 Primary care physician: Merline Barrera MD Admitting Clinician: Erma Mina MD Consults: 10/21/22 18:16 Consult to Sustainable Agriculture Specialist [CONS] Routine Comment: Reason for Consult:: Substance Abuse Screening 10/21/22 18:24 Consult to Sustainable Agriculture Specialist [CONS] Routine Comment: Reason for Consult:: Discharge Planning Needs Attending Physician on discharge: Erma Mina MD DS: Diagnosis Discharge Diagnosis (1) Normal vaginal delivery: Status: Acute Problem details: Uncomplicated (2) Panic attacks: Status: Acute Problem details: - Stable - Close follow up - Continue venlafaxine (3) Depression: Status: Acute Problem details: - Stable - Close follow up - Continue venlafaxine (4) Generalized anxiety disorder: Status: Acute Problem details: - Stable - Close follow up - Continue venlafaxine (5) History of pulmonary embolism: Status: Acute Problem details: - Patient will be prophylactic anticoagulation for at least 6 weeks - Anticoagulation: Lovenox 40 mg BID due to history of PE and BMI >40 kg/m2 (6) Gestational diabetes: Status: Acute Problem details: Uncontrolled - 2hr gtt at 6 weeks (7) Prothrombin gene mutation: Status: Acute Problem details: - Patient will be prophylactic anticoagulation for at least 6 weeks - Anticoagulation: Lovenox 40 mg BID due to history of PE and BMI >40 kg/m2 (8) Gastroparesis: Status: Acute Problem details: - Continue reglan and omeprazole (9) Chronic hypertension: Status: Acute Problem details: - Blood pressure normal to mild ranging during hospitalization - Denies any persistent headache, vision changes, SOB, right upper quadrant/epigastric pain, or rapidly expanding edema. - Patient is taking her BP at home - BP check at 1 week visit (10) Obesity: Status: Acute Exam Narrative: Exam Narrative: Physical exam: General: No acute distress Psych: Alert and oriented x3, full affect Heart: Regular rate and rhythm, no murmur rub or gallop Lungs: Clear to auscultation bilaterally Abdomen: Normoactive bowel sounds, soft, no tenderness, rebound, or guarding, no masses. Fundus firm at 2 cm below umbilicus Lower extremities: +1 bilateral pitting edema Pelvic exam: Scant lochia on pad Const: Vital Signs, click to edit/add: Vital Signs - 24 hr 10/23/22 12:15 10/23/22 20:04 10/24/22 00:35 Temperature 98.4 F 98.6 F 98.3 F Pulse Rate [Blood Pressure Cuff] 79 77 72 Respiratory Rate 16 18 Blood Pressure [Le ft Arm] 107/72 103/97 H 104/69 Pulse Oximetry 98 96 95 Oxygen Delivery Me thod Room Air Room Air Room Air OB - DS: Summary Hospital Course Hospital Course: The patient is a 32 year old at 37 weeks gestation that was admitted to the Center on 10/21/22 for induction of labor due to chronic HTN, uncontrolled diabetes, and uncontrolled gastroparesis. She had an uncomplicated vaginal delivery. She delivered a viable male . She is breast feeding. the patient has done well. She was counseled extensively on the importance of close follow up due to her multiple medical comorbidies. Additionally, she understands the importance administering her Lovenox as prescribed as she is high risk for VTE. She has Lovenox at home and know how to administer it. Will send refill at needed. [place] Gender: Male Time Spent with Patient Time attestation: Total time spent providing and/or coordinating discharge services: Time spent: Less than 30 minutes Discharge Plan Discharge Disposition: Home, Self-Care Date of Admission: 10/21/22 16:34 Attending Provider on Discharge: Diana Avendaño MD Primary Care Provider: Merline Barrera Condition: Stable Anticipated Discharge Date/Time: 10/24/22 09:56 Discharge Medications: New acetaminophen 500 mg Tablet 650 mg PO Q6H PRN (Reason: pain/fever) 30 Days Qty: 90 0RF omeprazole 20 mg Capsule,Delayed Release(Dr/Ec) 40 mg PO DAILY@0700 30 Days Qty: 30 0RF enoxaparin 40 mg/0.4 mL Syringe 40 mg subcut Q12H 60 Days Qty: 48 0RF Continued prenat.vits,kristyn,lov-zqzk-vhmhp Tablet 1 tab PO QDAY gabapentin 300 mg capsule 300 mg PO BID metoclopramide HCl 5 mg/5 mL solution 10 mg PO TID PRN (Reason: nausea and vomiting) Qty: 1000 0RF Hold Instructions: Patient refusal Rx Instructions: until nausea and vomiting resolved vapdihtvcb-bvmktcnkvinyp-sepa 50-325-40 mg tablet 1 tab PO Q4-6H PRN (Reason: pain) Qty: 20 0RF Hold Instructions: pt. doesnt take omeprazole 40 mg capsule,delayed release(DR/EC) 40 mg PO QDAY Qty: 90 2RF Hold Instructions: Patient refusal mirtazapine [Remeron] 15 mg tablet 7.5 mg PO QHS Qty: 30 0RF venlafaxine 75 mg tablet 75 - 150 mg PO QDAY Qty: 60 1RF Rx Instructions: Take 1 tablet daily in the morning for one week, then increase to 2 tablets daily for mood. (DME) lancets Misc See Rx Instructions .MEDSUPPLY Qty: 100 3RF Rx Instructions: Test blood sugar 4 times daily. (DME) Test Strips Misc See Rx Instructions .MEDSUPPLY Qty: 100 3RF Rx Instructions: Test blood sugar 4 times daily. metoclopramide HCl [Reglan] 10 mg tablet 10 mg PO TIDWMEAL Qty: 90 0RF Rx Instructions: Take prior to meals. docusate sodium [Colace] 100 mg capsule 100 mg PO QDAY Qty: 30 0RF polyethylene glycol 3350 [Miralax] 17 gram powder in packet 17 g PO QDAY Qty: 30 0RF Changed enoxaparin 40 mg/0.4 mL syringe 40 mg subcut BID Qty: 4 10RF Discharge Orders: Discharge Order (Routine); Ordered 10/24/22 Ordered By: Diana Avendaño Patient Education: OB Vaginal/Bottle Feeding Additional Instructions: Discharge instructions were reviewed with the patient including signs and symptoms of infection and home going medications. Lifting Restrictions: 20 pounds for [address] while taking narcotic pain medication: Approximately 1 week. Off Work or School for 6 weeks. Nothing vaginally for 6 weeks Symptoms to report to doctor: -Bleeding that saturates more than one pad per hour ?-Passing clots larger than the size of a golf ball ?-Pain not relieved by prescribed medication ?-Fever above 100.4 degrees Fahrenheit ?-A foul vaginal odor ?-Difficulty in emotions, mood and functions ?-Thoughts of hurting yourself and/or ?-Painful, reddened area in your breast ?-Any drainage, redness or tenderness in your IV/epidural site ?-Severe headache that doesn't improve after taking medications ?-Changes in vision, including temporary loss of vision, blurred vision, and/or light sensitivity ?-Upper abdominal pain (usually under ribs on the right side) ?-Decrease in urination or painful, frequent urinating ?-Chest pain ?-Shortness of breath ?-Tenderness or pain with redness and/swelling in the calf(s) of your leg [facility]: * Patient needs 1 week visit due to multiple medical comorbities * 2 week visit: Answer concerns for care, screen for anxiety/depression. * 6 week visit: Annual exam. consultation services are available to all mothers and babies for the first year after delivery.? To make an appointment, please call [phone]. Activity Level: Activity as Tolerated Discharge Diet: Regular Follow Up Appointments: Merline Barrera MD [Primary Care Provider] - Forms: MyHealth Info Instructions
== END 2022-10-24 11:10 | disposition home or self-care (01) | DRG 806 ==
PROVIDERS: Obstetrics & Gynecology; Admitting Provider Obstetrics & Gynecology; PCP Family Medicine; Visit Provider Obstetrics & Gynecology
DX: O10.92 Unspecified pre-existing hypertension complicating childbirth (principal); D68.52 Prothrombin gene mutation; Z37.0 Single live birth; O99.12 Other diseases of the blood and blood-forming organs and certain disorders involving the immune mechanism complicating childbirth; O24.429 Gestational diabetes mellitus in childbirth, unspecified control; K31.84 Gastroparesis; Z86.711 Personal history of pulmonary embolism; Z79.01 Long term (current) use of anticoagulants; O99.344 Other mental disorders complicating childbirth; F39 Unspecified mood [affective] disorder; G47.00 Insomnia, unspecified; F32.A Depression, unspecified; F41.1 Generalized anxiety disorder; F41.0 Panic disorder [episodic paroxysmal anxiety]; F12.90 Cannabis use, unspecified, uncomplicated; O99.334 Smoking (tobacco) complicating childbirth; F17.210 Nicotine dependence, cigarettes, uncomplicated; O99.214 Obesity complicating childbirth; Z3A.36 36 weeks gestation of pregnancy
CPT/HCPCS: 1967; 36415; 59200; 76815; 80053; 80306; 82962; 85018; 85025; 86850; 86900; 86901; 88307; A9270; C1726; J1650; J2270; J2371; J2405; J2795; J3480; J7042; J7120; S0020

== ENCOUNTER 2023-01-19 08:19 | Outpatient (CLI) | payer MEDICAID, SELFPAY | END 2023-01-19 08:20 | disposition home or self-care (01) | LOC: NFLDREF 01-21 16:11 | PROVIDERS: PCP Family Medicine; Referring Provider Family Medicine; Visit Provider Obstetrics & Gynecology | DX: O24.419 Gestational diabetes mellitus in pregnancy, unspecified control (principal) | CPT/HCPCS: 82947; 82950 ==

== ENCOUNTER 2023-07-28 10:15 | Outpatient (CLI) | payer MEDICAID, SELFPAY ==
--- OUTSIDE RECORDS SUMMARY | 2023-07-28 10:19 | XMS_ITS | Clinical Summary ---
Author Name Unknown Organization [facility] Address [address] [place] [address] Care Team Providers Care Electro Tech Name Role Phone Melchor, [facility] Primary Care Provider Kristy Jack MD Unavailable [phone] Allergies No known active allergies Medications Medication Sig Dispensed Refills Start Date End Date Status Vit-Fe Fumarate-FA ( MULTIVITAMIN PLUS IRON) 27-0.8 MG TABS per tablet Take 1 tablet by mouth daily Active sertraline (ZOLOFT) 25 MG tabletIndications:Michelle r depressive disorder with single episode, in full remission (H24),Generalized anxiety disorder Take 1 tablet (25 mg) by mouth daily 30 tablet 01/15/2017 Active ranitidine (ZANTAC) 300 MG tabletIndications:Linda roesophageal reflux disease without esophagitis Take 1 tablet (300 mg) by mouth At Bedtime 30 tablet 1 01/25/2017 Active Active Problems Problem Noted Date Diagnosed Date Gastroparesis 10/13/2022 No-show for appointment 02/09/2017 Bipolar disorder, current episode mixed, moderat e 01/26/2017 NARGIS (generalized anxiety disorder) 01/26/2017 Bipolar disorder 01/25/2017 Overview: Diagnosed in [place] Mixed obsessional thoughts and acts 01/25/2017 Overview: Diagnosed in [place] Labor and delivery indication for care or interv ention 01/22/2017 Group beta Strep positive 01/18/2017 Overview: Will need antibiotics in labor Anxiety 01/16/2017 H/O pre-eclampsia in prior , currently 01/16/2017 Moderate episode of recurrent major depressive d isorder 01/16/2017 Supervision of high risk in third trim [place] 01/16/2017 Hiatal hernia 01/16/2017 Encounter for triage in patient 017 Chronic headaches 12/03/2012 CARDIOVASCULAR SCREENING; LDL GOAL LESS THAN 160 08/07/2012 Supervision of normal first 08/07/2012 Hypertension Overview: preeclamsia with first , demise depression Resolved Problems Problem Noted Date Diagnosed Date Resolved Date Pre-eclampsia in second trimester 01/16/2017 01/16/2017 Indication for care in labor or delivery 10/04/2012 12/03/2012 Constipation 08/07/2012 12/03/2012 Overview: with Immunizations Name Administration Dates Next Due COVID-19 MONOVALENT 12+ ([employer]) 01/14/2021,12/05 Influenza Vaccine >6 months,quad, PF ,12/10/2021,01/28/2021, 020,12/25/2018,01/29/2017 TDAP Vaccine (Adacel) 01/29/2017,11/10/2012 Family History Medical History Relation Comments Allergies Brother shell fish Hypertension Maternal Grandfather Arthritis Maternal Grandmother Diabetes Maternal Grandmother Endocrine Disease Maternal Grandmother thyroid d isease Cancer Mother Mother from vaginal cancer Genitourinary Problems Mother ovarian c ancer age 23 Alzheimer Disease Other great grandmot her mothers side Relation Status Comments Brother Maternal Grandfather Maternal Grandmother Mother Other Social History Tobacco Use Types Packs/Day Years Used Date Smoking Tobacco: Former Cigarettes Q uit: 06/15/2016 Smokeless Tobacco: Never Alcohol Use Standard Drinks/Week Comments No 0 (1 standard drink = 0.6 oz pur e alcohol) 1 glass of wine monthly Adolescent Education Answer Date Record ed Getting School Help Needed Not on file 12/25 Sex and Gender Information Value Date Recorded Sex Assigned at Not on file Gender Identity Not on file Sexual Orientation Not on file Last Filed Vital Signs Vital Sign Reading Time Taken Comments Blood Pressure 126/73 10/16/2022 5:50 AM CDT Pulse 109 09/25/2018 7:03 PM CDT Temperature 36.7 ??C (98.1 ??F) 10/16/2022 5:50 AM CD T Respiratory Rate 18 10/16/2022 5:50 AM CDT Oxygen Saturation 99% 10/13/2022 12: 30 PM CDT Inhaled Oxygen Concentration - - Weight 112.6 kg (248 lb 3.2 oz) 023 12:30 PM CDT Height 162.6 cm (5' 4) 10/13/2022 12:3 0 PM CDT Body Mass Index 42.6 10/13/2022 12:30 PM CDT Plan of Treatment Health Maintenance Due Date Last Done Comments ADVANCE CARE PLANNING 1988 ANNUAL REVIEW OF HM ORDERS 1988 YEARLY PREVENTIVE VISIT 1990 HEPATITIS B IMMUNIZATION (1 of 3 - 19+ 3-dose series) 2007 COVID-19 Vaccine ( season) 2022 04/22/2022, 01/14/2021, 12/23/2020 PAP 12/10/2024 12/10/2021, 10/2021, 08/05/2012 GLUCOSE 10/16/2025 10/16/2022, 10/03, 10/16/2022, Additional history exists DTAP/TDAP/TD IMMUNIZATION (5 - Td or Tdap) 09/14/2032 09/14/2022, 09/01/2022, 01/29/2017, Additional history exists HIV SCREENING Completed 04/28/2022, 07/2016, 08/05/2012 HEPATITIS C SCREENING Completed 10/13/2022, 023 INFLUENZA VACCINE Completed 12/14/2022, , 12/10/2021, Additional history exists Pneumococcal Vaccine: Pediatrics (0 to 5 Years) and At-Risk Patients (6 to 64 Years) Aged Out 12/14/2022 No longer eligible based on patient's age to complete this topic HPV IMMUNIZATION Aged Out No longer e ligible based on patient's age to complete this topic IPV IMMUNIZATION Aged Out No longer e ligible based on patient's age to complete this topic MENINGITIS IMMUNIZATION Aged Out No l onger eligible based on patient's age to complete this topic RSV MONOCLONAL ANTIBODY Aged Out No l onger eligible based on patient's age to complete this topic Procedures Procedure Name Priority Date/Time Associated Diagnosis Comments COMPREHENSIVE METABOLIC PANEL Routine 10/16/2022 6:27 AM CDT HEPATITIS C ANTIBODY Add-On 10/13/2022 1:14 PM CDT ABSTRACT HIV Routine 04/28/2022 2:58 PM HUMAN RESOURCES BENEFITS COORDINATOR PAP IMAGED THIN LAYER SCREEN Routine 08/05/2012 12:00 AM CDT Supervision of normal first from Last 3 Months or Most Recently Relevant to Health Maintenance Results * (ABNORMAL) Comprehensive metabolic panel (10/16/2022 6:27 AM CDT) Sodium 139 136 - 145 mmol/L 10/16/2022 8:12 AM CDT [facility] Potassium 3.5 3.4 - 5.3 mmol/L 10/16/2022 8:12 AM CDT [facility] Chloride 103 98 - 107 mmol/L 10/16/2022 8:12 AM CDT [facility] Carbon Dioxide (CO2) 26 22 - 29 mmol/L 10/16/2022 8:12 AM CDT [facility] Anion Gap 10 7 - 15 mmol/L 10/16/2022 8:12 AM CDT [facility] Urea Nitrogen 3.5(L) 6.0 - 20.0 mg/dL 10/16/2022 8:12 AM CDT [facility] Creatinine 0.63 0.51 - 0.95 mg/dL 10/16/2022 8:12 AM CDT [facility] Calcium 9.0 8.6 - 10.0 mg/dL 10/16/2022 8:12 AM CDT [facility] Glucose 78 70 - 99 mg/dL 10/16/2022 8:12 AM CDT [facility] Alkaline Phosphatase 106(H) 35 - 104 U/L 10/16/2022 8:12 AM CDT [facility] AST 16 0 - 45 U/L 10/16/2022 8:12 AM CDT [facility] Comment:Reference intervals for this test were updated on 09/14/2022 to more accurately reflect our healthy population. There may be differences in the flagging of prior results with similar values performed with this method. Interpretation of those prior results can be made in the context of the updated reference intervals. ALT 30 0 - 50 U/L 10/16/2022 8:12 AM CDT [facility] Comment:Reference intervals for this test were updated on 09/14/2022 to more accurately reflect our healthy population. There may be differences in the flagging of prior results with similar values performed with this method. Interpretation of those prior results can be made in the context of the updated reference intervals. Protein Total 5.7(L) 6.4 - 8.3 g/dL 10/16/2022 8:12 AM CDT [facility] Albumin 2.8(L) 3.5 - 5.2 g/dL 10/16/2022 8:12 AM CDT [facility] Bilirubin Total 0.2 <=1.2 mg/dL 10/16/2022 8:12 AM CDT [facility] GFR Estimate >90 >60 mL/min/1. 73m2 10/16/2022 8:12 AM CDT [facility] Blood BLOOD SPECIMEN / Unknown Venipuncture / Unknown 10/16/2022 6:27 AM CDT 10/16/2022 6:52 AM CDT Reshma Rosa MD LAB - BLOOD ORDERABL ES UR LAB[facility]ATORY [facility] Acute [facility] Lab [address] [facility], [address] [place] [id number] [phone] * Hepatitis C antibody (10/13/2022 1:14 PM CDT) Hepatitis C Antibody Nonreactive Nonreactive 10/14/2022 4:03 PM CDT SPECIALTY CORE/PROT/EN DO Blood BLOOD SPECIMEN / Unknown Venipuncture / Unknown 10/13/2022 1:14 PM CDT 10/13/2022 1:26 PM CDT Narrative SPECIALTY CORE/PROT/ENDO - 10/14/2022 4:03 PM CDT Assay performance characteristics have not been established for newborns, infants, and children. Leticia Victoria MD LAB - BLOOD ORDERA BLEAlfredo UM SPECIALTY CORE/PROT/ENDO UM Specialty Core/Prot/Endo [address] [facility] [address], [address] [place] [address], [facility] [phone] * ABSTRACT HIV (04/28/2022 2:58 PM HUMAN RESOURCES BENEFITS COORDINATOR) HIV 1&2 EXT Non-Reacti ve [facility] Comment:SEE SCAN FOR REFEREN CE RANGE Blood 04/28/2022 2:58 PM HUMAN RESOURCES BENEFITS COORDINATOR Narrative [facility] - 04/28/2022 2:58 PM HUMAN RESOURCES BENEFITS COORDINATOR [facility] AND [facility] LAB RESULTS Provider Outside LAB - HIM EXTERNAL R ESULT Performing Organization Address City/[facility]/ZIP Co de Phone Number [facility] [address] [place] [address], [facility] [phone] * PAP imaged thin layer, screen (08/05/2012 12:00 AM CDT) PAP GUILLERMINA Manzo Report Patient Name: KAYLEIGH LOCKWOOD MR#: [id number] Specimen #: [id number] Collected: 08/05/2012 Received: 08/08/2012 Reported: 08/09/2012 13:41 Ordering Phy(s): BERNY LOPEZ SPECIMEN/STAIN PROCESS: Pap imaged thin layer prep screening (Surepath, FocalPoint with guided screening) ? Pap-Cyto x 1, Reflex HPV x 1 SOURCE: Cervical Pap imaged thin layer prep screening (Surepath, FocalPoint with guided screening) SPECIMEN ADEQUACY: Satisfactory for evaluation. -Transformation zone component present. CYTOLOGIC INTERPRETATION: Negative for Intraepithelial Lesion or Malignancy Electronically signed out by: DC Thayer (ASCP) Processed and screened at [facility], [facility] CLINICAL HISTORY: LMP: 04/21/2012 , Papanicolaou Test Limitations: ??Cervical cytology is a screening test with limited sensitivity; regular screening is critical for cancer prevention; Pap tests are primarily effective for the diagnosis/preventi on of squamous cell carcinoma, not adenocarcinomas or other cancers. TESTING LAB LOCATION: [facility] [address] [place], [place] ??[address] COLLECTION SITE: Client: ??[facility] Location: RMFP (R) COPATH Cytologic material (specimen) 08/05/2012 08/08/2012 12:52 PM CDT Berny Lopez MD LAB - [place] C LINICAL SPECIMEN COPATH from Last 3 Months or Most Recently Relevant to Health Maintenance Advance Directives For more information, please contact: [phone] * Full Code (Latest Code Status on File) Date Activated Date Inactivated Comments 10/13/2022 12:39 PM 10/16/2022 4:16 PM All basic a nd advanced life-sustaining interventions are performed as appropriate Question Answer Comments Code status determined by: Unable to dis cuss and no AD/POLST on file; continue PREVIOUSLY ORDERED code status Care Teams Electro Tech Relationship Specialty Start Date End Date [facility], [address] [address] PCP - General 09/25/18 Kristy Jack MD [address] [address] Assigned OBGYN Provider 07/25/22
--- OUTSIDE RECORDS SUMMARY | 2023-07-28 10:19 | XMS_ITS | Referral Summary ---
Author Name Unknown Organization [facility] Address [address] [place] [address] Care Team Providers Care Supervisor Pressing Department Name Role Phone Melchor, [facility] Primary Care Provider Kristy Jack MD Unavailable [phone] Allergies No known active allergies Medications [...] 01/26/2017 Bipolar disorder 01/25/2017 Overview: Diagnosed in [place] Mixed obsessional thoughts and acts 01/25/2017 Overview: Diagnosed in [place] Labor and delivery indication for care or [...] Administration Dates Next Due COVID-19 MONOVALENT 12+ ([employer]) 01/14/2021,12/05 Influenza Vaccine >6 months,quad, PF ,12/10/2021,01/28/2021, 020,12/25/2018,01/29/2017 TDAP Vaccine (Adacel) 01/29/2017,11/10/2012 Social History Tobacco Use Types Packs/Day Years [...] 10/13/2022 12:30 PM CDT Plan of Treatment Not on file Procedures Procedure Name Priority Date/Time Associated Diagnosis Comments COMPREHENSIVE METABOLIC PANEL Routine 10/16/2022 6:27 AM CDT HEPATITIS C ANTIBODY Add-On 10/13/2022 1:14 PM CDT ABSTRACT HIV Routine 04/28/2022 2:58 PM IRON CARRIER PAP IMAGED THIN LAYER SCREEN Routine 08/05/2012 [...] LAB - BLOOD ORDERABL ES UR LABORATORY [facility] Acute Care Lab [address] [facility], [address] [place] [address] [phone] * Hepatitis C antibody (10/13/2022 1:14 PM CDT) Hepatitis C Antibody Nonreactive Nonreactive 10/14/2022 4:03 PM CDT SPECIALTY CORE/PROT/EN DO Blood BLOOD SPECIMEN / Unknown Venipuncture / Unknown 10/13/2022 1:14 PM CDT 10/13/2022 1:26 PM CDT Narrative SPECIALTY CORE/PROT/ENDO - 10/14/2022 4:03 PM CDT Assay performance characteristics have not been established for newborns, infants, and children. Leticia Victoria MD LAB - BLOOD ORDERA BLES UM SPECIALTY CORE/PROT/ENDO UM Specialty Core/Prot/Endo [address] [facility] [address] [facility], [address] [address], [facility] [phone] * ABSTRACT HIV (04/28/2022 2:58 PM IRON CARRIER) HIV 1&2 EXT Non-Reacti ve [facility] Comment:SEE SCAN FOR REFEREN CE RANGE Blood 04/28/2022 2:58 PM IRON CARRIER Narrative [facility] - 04/28/2022 2:58 PM IRON CARRIER [facility] LAB RESULTS Provider Outside LAB - HIM EXTERNAL R ESULT Performing Organization Address City/[facility]/ZIP Co de Phone Number [address] [phone] * PAP imaged thin layer, screen (08/05/2012 12:00 AM CDT) PAP GUILLERMINA Manzo Report Patient Name: KAYLEIGH LOCKWOOD MR#: [id number] Specimen #: [id number] Collected: 08/05/2012 Received: 08/08/2012 Reported: 08/09/2012 13:41 [...] DC Thayer (ASCP) Processed and screened at [facility], [facility] CLINICAL HISTORY: LMP: 04/21/2012 , Papanicolaou Test Limitations: ??Cervical cytology is a screening test with limited sensitivity; regular screening is critical for cancer prevention; Pap tests are primarily effective for the diagnosis/preventi on of squamous cell carcinoma, not adenocarcinomas or other cancers. TESTING LAB LOCATION: [facility] [address] [place], [place] ??[address] COLLECTION SITE: Client: ??[facility] Location: RMFP (R) COPATH Cytologic material (specimen) 08/05/2012 08/08/2012 12:52 PM CDT Berny Lopez MD LAB - OPTIME C LINICAL SPECIMEN COPATH from Last 3 Months or Most Recently Relevant to Health Maintenance Advance Directives For more information, please contact: [phone] * Full Code (Latest Code Status on File) Date Activated Date Inactivated Comments 10/13/2022 12:39 PM 10/16/2022 4:16 PM All basic a nd advanced life-sustaining interventions are performed as appropriate Question Answer Comments Code status determined by: Unable to dis cuss and no AD/POLST on file; continue PREVIOUSLY ORDERED code status Care Teams Supervisor Pressing Department Relationship Specialty Start Date End Date Clinic, [facility] [address] [address] PCP - General 09/25/18 Kristy Jack MD [address] [facility] [address] [place] [address] Assigned OBGYN Provider 07/25/22
--- OUTSIDE RECORDS SUMMARY | 2023-07-28 10:20 | XMS_ITS | Clinical Summary ---
Author Name Unknown Organization [facility] Address [address] [place] [address] Care Team Providers Care Mini Bar Attendant Name Role Phone Doctor, No Primary Care Provider Unavailabl e Allergies No known active allergies Medications Medication Sig Dispensed Refills Start Date End Date Status amitriptyline (ELAVIL) 10 mg oral tablet Take 1 tablet (10 mg) by mouth at bedtime. 02/10/2022 Active dicyclomine (BENTYL) 20 mg oral tablet Take 1 tablet (20 mg) by mouth three times a day. 02/10/2022 Active famotidine (PEPCID) 40 mg oral tablet Take 1 tablet (40 mg) by mouth once daily. 08/02/2021 Active gabapentin (NEURONTIN) 300 mg oral capsule Take 1 capsule (300 mg) by mouth Twice a Day. Take 1 capsule daily in the morning, 1 capsule daily in the afternoon, and 3 capsules nightly before bed. 02/04/2022 Active lubiprostone (AMITIZA) 24 mcg oral Cap Take 1 capsule (24 mcg) by mouth twice a day before breakfast and dinner. 02/10/2022 Active metFORMIN (GLUCOPHAGE) 500 mg oral tablet Take 1 tablet (500 mg) by mouth twice a day with breakfast and dinner. 03/03/2021 Active propranoloL (INDERAL) 20 mg oral tablet Take 1 tablet (20 mg) by mouth twice a day. 03/03/2021 Active QUEtiapine (SEROQUEL) 300 mg oral tablet Take 1 tablet (300 mg) by mouth at bedtime. 03/03/2021 Active sertraline (ZOLOFT) 100 mg oral tablet Take 1.5 tablets (150 mg) by mouth once daily. 02/04/2022 Active sucralfate (CARAFATE) 1 gram oral tablet Take 1 tablet (1 g) by mouth three times a day before meals and at bedtime. 12/13/2021 Active gabapentin (NEURONTIN) 300 mg oral capsule Take 3 capsules (900 mg) by mouth at bedtime. Active omeprazole (PRILOSEC) 40 mg oral delayed release capsule Take 1 capsule (40 mg) by mouth every morning before breakfast. 03/03/2021 Active Active Problems Problem Noted Date Diagnosed Date Fall from slipping on ice 02/19/2022 Fall due to slipping on ice or snow, initial enc ounter 02/19/2022 Puncture wound of right thigh 02/19/2022 IUFD (intrauterine ) 12/03/2012 Migraine headache 12/03/2012 Hypertension in 12/03/2012 Resolved Problems Problem Noted Date Diagnosed Date Resolved Date Dysuria in 11/15/2012 013 Family History Medical History Relation Comments Arthritis Maternal Grandmother Diabetes Maternal Grandmother Cancer Mother door to door selling agent cancer of un known origin to patient Relation Status Comments Maternal Grandmother Mother Social History Tobacco Use Types Packs/Day Years Used Date Smoking Tobacco: Every Day Smokeless Tobacco: Never Alcohol Use Standard Drinks/Week Comments No 0 (1 standard drink = 0.6 oz pur e alcohol) Sex and Gender Information Value Date Recorded Sex Assigned at Not on file Gender Identity Not on file Sexual Orientation Not on file Last Filed Vital Signs Vital Sign Reading Time Taken Comments Blood Pressure 131/90 02/19/2022 6:00 PM BARREL WASHER Pulse 79 02/19/2022 6:00 PM BARREL WASHER Temperature 36.5 ??C (97.7 ??F) 02/19/2022 4:09 PM CS T Respiratory Rate 21 02/19/2022 6:00 PM BARREL WASHER Oxygen Saturation 99% 02/19/2022 6:00 PM BARREL WASHER Inhaled Oxygen Concentration - - Weight 112.5 kg (248 lb) 12/01/2012 10:03 AM CDT Height 162.6 cm (5' 4) 12/01/2012 10:03 AM CDT Body Mass Index 42.57 12/01/2012 10:03 AM CDT Plan of Treatment Health Maintenance Due Date Last Done Comments Hepatitis C Screening 1988 Pap Smear 1988 Anxiety Screening (NARGIS-2) 1989 Depression Assessment (PHQ-2) 1989 Pneumococcal <65 (1 of 2 - PCV) 1994 COVID-19 Vaccine (3 - 2022-2 4 season) 2022 01/14/2021, 12/23/2020 Influenza Vaccine (Season Ended) 2023 12/10/2021, 01/28/2021, 03/13/2020, Additional history exists Adult Tetanus Booster 01/29/2027 01/29/2017, 013 Advance Directives For more information, please contact: [phone] Latest Code Status on File Code Status Date Activated Date Inactivated Comments Full Code 12/02/2012 1:52 PM 12/05/2012 6:57 PM Question Answer Comments How was code status determined? Patient Care Teams Mini Bar Attendant Relationship Specialty Start Date End Date Doctor, No No ad PCP - General Radiology 02/19/22
--- OUTSIDE RECORDS SUMMARY | 2023-07-28 10:20 | XMS_ITS | Referral Summary ---
Author Name Unknown Organization [facility] Address [address] [place] [address] Care Team Providers Care Trace Evidence Technician Name Role Phone Doctor, No Primary Care [...] Date Resolved Date Dysuria in 11/15/2012 013 Social History Tobacco Use Types Packs/Day Years [...] Comments Blood Pressure 131/90 02/19/2022 6:00 PM NETWORKS COMPUTER CONSULTANT Pulse 79 02/19/2022 6:00 PM NETWORKS COMPUTER CONSULTANT Temperature 36.5 ??C (97.7 ??F) 02/19/2022 4:09 PM CS T Respiratory Rate 21 02/19/2022 6:00 PM NETWORKS COMPUTER CONSULTANT Oxygen Saturation 99% 02/19/2022 6:00 PM NETWORKS COMPUTER CONSULTANT Inhaled Oxygen Concentration - - Weight 112.5 kg (248 lb) 12/01/2012 10:03 AM CDT Height 162.6 cm (5' 4) 12/01/2012 10:03 AM CDT Body Mass Index 42.57 12/01/2012 10:03 AM CDT Plan of Treatment Not on file Advance Directives For more information, please contact: [phone] Latest Code Status on File Code Status Date Activated Date Inactivated Comments Full Code 12/02/2012 1:52 PM 12/05/2012 6:57 PM Question Answer Comments How was code status determined? Patient Care Teams Trace Evidence Technician Relationship Specialty Start Date End Date Doctor, No No ad PCP - General Radiology 02/19/22
--- OUTSIDE RECORDS SUMMARY | 2023-07-28 10:20 | XMS_ITS | Clinical Summary ---
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 exams and procedure reports are released immediately into your electronic medical record. ??You may view this report before your referring provider. ??If you have questions, please contact your health care provider. INDICATION: First trimester scan, establish dates. COMPARISON: None. TECHNIQUE: Real-time hooks-scale imaging of the pelvis was performed. FINDINGS: Sonographic imaging demonstrates a single living intrauterine gestation. The embryo demonstrates a regular cardiac rate measuring 161 beats per minute. The embryo`s crown-rump length measurement of 2.3 cm corresponds to a gestational age of 9 weeks 0 days with a sonographic due date of 02/25/2024. There is a normal-appearing yolk sac. There are no gross abnormalities noted within the embryo at this early state of development. The gestational sac has a normal appearance. There is a 2.1 x 1.4 x 1.0 cm perigestational hemorrhage. The amount of fluid within the sac appears appropriate for gestational age. The cervix is closed. The myometrium appears normal. The ovaries are of normal size. There are no suspicious fluid collections noted in the cul-de-sac. Procedure Note Logan Felix MD - 07/23/2023 For Patients: As a result of the Cures Act, medical imagingexams and procedure reports are released immediately into your electronicmedical record. You may view this report before your referring provider.If you have questions, please contact your health care provider. INDICATION: First trimester scan, establish dates. COMPARISON: None. TECHNIQUE: Real-time hooks-scale imaging of the pelvis was performed. FINDINGS: Sonographic imaging demonstrates a single living intrauterine gestation.The embryo demonstrates a regular cardiac rate measuring 161 beats perminute. The embryo`s crown-rump length measurement of 2.3 cm correspondsto a gestational age of 9 weeks 0 days with a sonographic due date of02/25/2024. There is a normal-appearing yolk sac. There are no grossabnormalities noted within the embryo at this early state of development.The gestational sac has a normal appearance. There is a 2.1 x 1.4 x 1.0 cmperigestational hemorrhage. The amount of fluid within the sac appearsappropriate for gestational age. The cervix is closed. The myometrium appears normal. The ovaries are ofnormal size. There are no suspicious fluid collections noted in [id number]. IMPRESSION: Gestational age calculated at 9 weeks 0 days with a sonographic due dateof 02/25/2024. Subchorionic hemorrhage measuring 2.1 x 1.4 x 1.0 cm. Dictated by Logan Felix MD @ 07/23/2023 4:11:00 PM (Electronically Signed) Merline Barrera MD US * UA W/ SEDIMENT EXAM REFLEXED PER CRITERIA (07/12/2023 10:02 PM CDT) Only the most recent of2 resultswithin the time period is included. COLOR Yellow Yellow Color 07/12/2023 10:08 PM [facility] CLARITY Clear Clear Clarity 07/12/2023 10:08 PM [facility] SPECIFIC GRAVITY,URINE 1.020 1.010, 1.015, 1.020, 1.025 07/12/2023 10:08 PM [facility] PH,URINE 6.0 6.0, 7.0, 8.0, 5.5, 6.5, 7.5, 8.5 07/12/2023 10:08 PM [facility] UROBILINOGEN, QUALITATIVE Normal Normal EU/dl 07/12/2023 10:08 PM [facility] PROTEIN, URINE Negative Negative mg/dL 07/12/2023 10:08 PM [facility] GLUCOSE, URINE Negative Negative mg/dL 07/12/2023 10:08 PM [facility] KETONES,URINE Negative Negative mg/dL 07/12/2023 10:08 PM [facility] BILIRUBIN,URI NE Negative Negative 07/12/2023 10:08 PM [facility] OCCULT BLOOD,URINE Negative Negative 07/12/2023 10:08 PM CDT [facility] NITRITE Negative Negative 07/12/2023 10:08 PM CDT [facility] LEUKOCYTE ESTERASE Negative Negative 07/12/2023 10:08 PM CDT [facility] Urine URINE SPECIMEN / Unknown Non-Blood / Unknown 07/12/2023 10:02 PM CDT 07/12/2023 10:04 PM CDT Duane Boothe MD URINE [facility] [address] [place] [address] * TROPONIN T (HS) ACUTE W/2HR REFLEX (07/12/2023 8:46 PM CDT) Only the most recent of2 resultswithin the time period is included. TROPONIN T HS <6 6-10 ng/L ng/L 07/12/2023 9:30 PM CDT [facility] Blood BLOOD SPECIMEN / Unknown Venipuncture / Unknown 07/12/2023 8:46 PM CDT 07/12/2023 9:[address] [facility] - 07/12/2023 9:30 PM CDT hs-cTnT (Elecsys Troponin T Gen 5) concentration (s) above the sex-specific 99th percentile (16 ng/L or greater for males or 11 ng/L or greater for females) are indicative of myocardial injury. If initial hs-cTnT <=100 ng/L at presentation, a 0h/2h ABSOLUTE (ng/L) delta change (rising or falling) of >=10 ng/L suggests a significant change, whereas a 0h/2h delta change <=3 ng/L suggests no significant change. If initial hs-cTnT >100 ng/L at presentation, a 0h/2h/ RELATIVE (percent, %) delta change of 20% is suggested to distinguish patients with acute vs. chronic myocardial injury. There are multiple etiologies that can cause hs-cTnT increases above the 99th percentile (myocardial injury) other than acute myocardial infarction. Clinical context and careful clinical evaluation are critical for diagnosis and risk-stratification. The diagnosis of acute myocardial infarction requires a rising and/or falling pattern in hs-cTnT concentrations with at least one value above the sex-specific 99th percentile PLUS at least one of the following clinical criteria: ischemic symptoms, new or presumed new significant ST-T wave changes or new LBBB, development of pathological Q waves, imaging evidence of new loss of viable myocardium or new regional wall motion abnormality, or identification of intracoronary atherothrombosis or an acute angiographic culprit on coronary angiography. In appropriate low-risk patients with a non-ischemic electrocardiogram without active chest pain with a symptom onset >3-hours without recurrence, a single initial hs-cTnT<6 ng/L identifies patient with a very low risk in emergency department patient population. Duane Boothe MD CHEMISTRY [facility] [address] [place] [address] * (ABNORMAL) CBC WITH AUTO DIFFERENTIAL (07/12/2023 8:46 PM CDT) Only the most recent of4 resultswithin the time period is included. WHITE BLOOD COUNT 12.2(H) 4.5 - 11.0 thou/cu mm 07/12/2023 9:06 PM [facility] RED BLOOD COUNT 4.56 4.00 - 5.20 mil/cu mm 07/12/2023 9:06 PM [facility] HEMOGLOBIN 13.3 12.0 - 16.0 g/dL 07/12/2023 9:06 PM [facility] HEMATOCRIT 39.9 33.0 - 51.0 % 07/12/2023 9:06 PM [facility] MCV 88 80 - 100 fL 07/12/2023 9:06 PM [facility] MCH 29.2 26.0 - 34.0 pg 07/12/2023 9:06 PM [facility] MCHC 33.3 32.0 - 36.0 g/dL 07/12/2023 9:06 PM [facility] RDW 14.3 11.5 - 15.5 % 07/12/2023 9:06 PM T [facility] PLATELET COUNT 303 140 - 440 thou/cu mm 07/12/2023 9:06 PM [facility] MPV 9.5 6.5 - 11.0 fL 07/12/2023 9:06 PM [facility] % NEUT 64.9 % 07/12/2023 9:06 PM [facility] % LYMPH 28.5 % 07/12/2023 9:06 PM [facility] % MONO 5.3 % 07/12/2023 9:06 PM [facility] % EOS 1.2 % 07/12/2023 9:06 PM [facility] % BASO 0.1 % 07/12/2023 9:06 PM [facility] ABSOLUTE NEUTROPHILS 7.9(H) 1.7 - 7.0 thou/cu mm 07/12/2023 9:06 PM T [facility] ABSOLUTE LYMPHOCYTES 3.5(H) 0.9 - 2.9 thou/cu mm 07/12/2023 9:06 PM [facility] ABSOLUTE MONOCYTES 0.7 <0.9 thou/cu mm 07/12/2023 9:06 PM [facility] ABSOLUTE EOSINOPHILS 0.2 <0.5 thou/cu mm 07/12/2023 9:06 PM [facility] ABSOLUTE BASOPHILS 0.0 <0.3 thou/cu mm 07/12/2023 9:06 PM T [facility] Blood BLOOD SPECIMEN / Unknown Venipuncture / Unknown 07/12/2023 8:46 PM CDT 07/12/2023 9:02 PM CDT Duane Boothe MD HEMATOLOGY [facility] [address] [place] [address] * HCG BETA QUANT, (07/12/2023 8:46 PM CDT) [facility] HCG BETA QUANT,PREGNANC Y 21,572 mIU/mL 07/12/2023 10:03 PM CDT [facility] Blood BLOOD SPECIMEN / Unknown Venipuncture / Unknown 07/12/2023 8:46 PM CDT 07/12/2023 9:[address] [facility] - 07/12/2023 10:03 PM CDT Expected Value for Healthy Non- premenopausal women <5.3mIU/mL FOR GESTATIONAL ASSESSMENT-See Range Table Below Weeks of gestation hCG mIU/mL 3 weeks gestation (5.8 - 71.2) 4 weeks gestation (9.5 - 750) 5 weeks gestation (217 - 7138) 6 weeks gestation (158 - 31,795) 7 weeks gestation (3,697 - 163,563) 8 weeks gestation (32,065 - 149,571) 9 weeks gestation (63,803 - 151,410) 10 weeks gestation (46,509 - 186,977) 12 weeks gestation (27,832 - 210,612) 14 weeks gestation (13,950 - 62,530) 15 weeks gestation (12,039 - 70,971) 16 weeks gestation (9,040 - 56,451) 17 weeks gestation (8,175 - 55,868) 18 weeks gestation (8,099 - 58,176) Biotin supplements may cause clinically significant interference for this test assay. ??If interference is suspected, it is strongly recommended that biotin is discontinued for at least one week prior to retesting. Duane Boothe MD CHEMISTRY [facility] [address] [place] [phone] * (ABNORMAL) BASIC METABOLIC PANEL (07/12/2023 8:46 PM CDT) [facility] SODIUM 140 136 - 145 mmol/L 07/12/2023 9:30 PM CDT [facility] POTASSIUM 3.4(L) 3.5 - 5.1 mmol/L 07/12/2023 9:30 PM [facility] CHLORIDE 105 98 - 107 mmol/L 07/12/2023 9:30 PM [facility] CO2,TOTAL 25 22 - 29 mmol/L 07/12/2023 9:30 PM [facility] ANION GAP 10 5 - 18 07/12/2023 9:30 PM [facility] GLUCOSE 100(H) 70 - 99 mg/dL 07/12/2023 9:30 PM [facility] CALCIUM 8.8 8.6 - 10.0 mg/dL 07/12/2023 9:30 PM [facility] BUN 7 6 - 20 mg/dL 07/12/2023 9:30 PM [facility] CREATININE 0.56 0.50 - 0.90 mg/dL 07/12/2023 9:30 PM [facility] BUN/CREAT RATIO 13 10 - 20 9:30 PM [facility] eGFR >90 >90 mL/min/1.7 3m2 07/12/2023 9:30 PM [facility] Comment:As of 2021, eG FR is calculated by the CKD-EPI creatinine equation without race adjustment. ??eGFR can be influenced by muscle mass, exercise, and diet. ??The reported eGFR is an estimation only and is only applicable if the renal function is stable. Blood BLOOD SPECIMEN / Unknown Venipuncture / Unknown 07/12/2023 8:46 PM CDT 07/12/2023 9:02 PM CDT Duane Boothe MD CHEMISTRY [facility] [address] [place] [address] * EKG 12 LEAD (07/12/2023 8:27 PM CDT) Only the most recent of2 resultswithin the time period is included. Interpretation Normal sinus rhythm Normal ECG When compared with ECG of 04-JUL-2023 12:53, No significant change was found BEYOND NOW Ventricular Rate 76 BPM BEYOND NOW Atrial Rate 76 BPM BEYOND NOW P-R Interval 196 ms BEYOND NOW QRS Duration 92 ms BEYOND NOW QT 408 ms BEYOND NOW QTc 459 ms BEYOND NOW P Savage 55 degrees BEYOND NOW R Savage -13 degrees BEYOND NOW T Savage 16 degrees BEYOND NOW 07/12/2023 8:27 PM CDT 07/13/2023 1:06 AM CDT Duane Boothe MD EKG ORD Performing Organization Address City/[facility] Co de Phone Number BEYOND NOW [place], [place] * TROPONIN T (HS) ONE TIME (07/04/2023 3:07 PM CDT) TROPONIN T HS <6 6-10 ng/L ng/L 07/04/2023 3:30 PM CDT [facility] Blood BLOOD SPECIMEN / Unknown Venipuncture / Unknown 07/04/2023 3:07 PM CDT 07/04/2023 3:09 PM CDT Bryanna Pena MD CHEMISTRY Performing Organization Address City/[facility] Co de Phone Number [facility] [address] [place] [address] * XR CHEST 1 VIEW PORTABLE (07/04/2023 1:13 PM CDT) Anatomical Region Laterality Modality HEART, THORAX, CHEST Digital Rad iography 07/04/2023 1:28 PM CDT Impressions 07/04/2023 1:28 PM CDT No acute chest findings. Dictated by Yrn Clark MD @ 07/04/2023 1:28:44 PM (Electronically Signed) Narrative 07/04/2023 1:28 PM CDT For Patients: ??As a result of the 21st Century Cures Act, medical imaging exams and procedure reports are released immediately into your electronic medical record. ??You may view this report before your referring provider. ??If you have questions, please contact your health care provider. INDICATION: Chest pain. TECHNIQUE: Portable AP chest. COMPARISON: 02/17/2023. FINDINGS: Shallow inspiration. Lungs clear. Normal heart size and pulmonary vascularity. No pleural effusion or pneumothorax. Cholecystectomy clips. Procedure Note Yrn Clark MD - 07/04/2023 For Patients: As a result of the Century Cures Act, medical imagingexams and procedure reports are released immediately into your electronicmedical record. You may view this report before your referring provider.If you have questions, please contact your health care provider. INDICATION: Chest pain. TECHNIQUE: Portable AP chest. COMPARISON: 02/17/2023. FINDINGS: Shallow inspiration. Lungs clear. Normal heart size and pulmonaryvascularity. No pleural effusion or pneumothorax. Cholecystectomy clips. IMPRESSION: No acute chest findings. Dictated by Yrn Clark MD @ 07/04/2023 1:28:44 PM (Electronically Signed) Bryanna Pena MD GENERAL IMAGING * (ABNORMAL) PROTIME-INR (07/04/2023 1:08 PM CDT) Only the most recent of3 resultswithin the time period is included. INR 2.1(H) <1.3 07/04/2023 1:17 PM CDT [facility] PROTIME 22.7(H) 10.3 - 12.3 sec 07/04/2023 1:17 PM CDT [facility] Blood BLOOD SPECIMEN / Unknown Venipuncture / Unknown 07/04/2023 1:08 PM CDT 07/04/2023 1:10 PM CDT Narrative [facility] - 07/04/2023 1:17 PM CDT ?Therapeutic Range 2.0-3.0 for most anticoagulated patients 2.5-3.5 or 4.0 for high risk patients The INR is only used for patients on stable oral anticoagulant therapy. It makes no significant contribution to the diagnosis or treatment of patients whose Protime is prolonged for other reasons. INR results are increased when heparin levels exceed 1.0 U/mL, which corresponds to an aPTT >125 seconds if the patient is on UFH. Bryanna Pena MD HEMATOLOGY [facility] [address] [place] [address] * (ABNORMAL) LIPASE (07/04/2023 1:08 PM CDT) Only the most recent of2 resultswithin the time period is included. [facility] LIPASE 7.1(L) 13.0 - 60.0 IU/L 07/04/2023 1:33 PM T [facility] Blood BLOOD SPECIMEN / Unknown Venipuncture / Unknown 07/04/2023 1:08 PM CDT 07/04/2023 1:10 PM CDT Brynana Pena MD CHEMISTRY [facility] [address] [place] [address] * (ABNORMAL) COMP METABOLIC PANEL (07/04/2023 1:08 PM CDT) Only the most recent of3 resultswithin the time period is included. [facility] SODIUM 138 136 - 145 mmol/L 07/04/2023 1:35 PM [facility] POTASSIUM 2.9(L) 3.5 - 5.1 mmol/L 07/04/2023 1:35 PM [facility] CHLORIDE 104 98 - 107 mmol/L 07/04/2023 1:35 PM [facility] CO2,TOTAL 26 22 - 29 mmol/L 07/04/2023 1:35 PM [facility] ANION GAP 8 5 - 18 07/04/2023 1:35 PM [facility] GLUCOSE 124(H) 70 - 99 mg/dL 07/04/2023 1:35 PM [facility] CALCIUM 8.8 8.6 - 10.0 mg/dL 07/04/2023 1:35 PM [facility] BUN 7 6 - 20 mg/dL 07/04/2023 1:35 PM [facility] CREATININE 0.61 0.50 - 0.90 mg/dL 07/04/2023 1:35 PM [facility] BUN/CREAT RATIO 11 10 - 20 1:35 PM T [facility] eGFR >90 >90 mL/min/1.7 3m2 07/04/2023 1:35 PM T [facility] Comment:As of 2021, eG FR is calculated by the CKD-EPI creatinine equation without race adjustment. ??eGFR can be influenced by muscle mass, exercise, and diet. ??The reported eGFR is an estimation only and is only applicable if the renal function is stable. ALBUMIN 3.9(L) 4.0 - 4.9 g/dL 07/04/2023 1:35 PM T [facility] PROTEIN,TOTAL 6.9 6.0 - 8.0 g/dL 07/04/2023 1:35 PM T [facility] BILIRUBIN,TOTAL 0.4 0.0 - 1.2 mg/dL 07/04/2023 1:35 PM [facility] ALK PHOSPHATASE 70 35 - 104 IU/L 07/04/2023 1:35 PM [facility] ALT (SGPT) <5(L) 10 - 35 IU/L 07/04/2023 1:35 PM [facility] AST (SGOT) 12 10 - 35 IU/L 07/04/2023 1:35 PM T [facility] Blood BLOOD SPECIMEN / Unknown Venipuncture / Unknown 07/04/2023 1:08 PM CDT 07/04/2023 1:10 PM CDT Bryanna Pena MD CHEMISTRY [facility] [address] [place] [address] * XR COLON (06/23/2023 11:51 AM CDT) Anatomical Region Laterality Modality COLON Computed Radiogr aphy, Other 06/23/2023 12:1 6 PM CDT Narrative 06/23/2023 12:16 PM CDT For Patients: ??As a result of the Cures Act, medical imaging exams and procedure reports are released immediately into your electronic medical record. ??You may view this report before your referring provider. ??If you have questions, please contact your health care provider. INDICATION: Diverticulitis. TECHNIQUE: Water-soluble enema. Findings : Fluoroscopy time 1 minute 8 seconds. Multiple spot images. There is mild diverticulosis of the distal descending and proximal sigmoid colon. There is mild thickening of the folds in this region as well. No significant focal stenosis or obstruction to the upstream progress of the water-soluble contrast. The descending, transverse and ascending colon are normal. The distal sigmoid/rectum are normal. Impression : 1. Mild changes of diverticulosis with fold thickening at the junction of the descending and sigmoid colon without a significant stenosis. No fistula track or extra luminal mass effect. 2. Remaining colon normal. Dictated by Chad Kam MD @ 06/23/2023 12:16:48 PM (Electronically Signed) Procedure Note Froylan Kam MD - 06/23/2023 For Patients: As a result of the Cures Act, medical imagingexams and procedure reports are released immediately into your electronicmedical record. You may view this report before your referring provider.If you have questions, please contact your health care provider. INDICATION: Diverticulitis. TECHNIQUE: Water-soluble enema. Findings : Fluoroscopy time 1 minute 8 seconds. Multiple spot images. There is mild diverticulosis of the distal descending and proximal sigmoidcolon. There is mild thickening of the folds in this region as well. Nosignificant focal stenosis or obstruction to the upstream progress of thewater-soluble contrast. The descending, transverse and ascending colon arenormal. The distal sigmoid/rectum are normal. Impression : 1. Mild changes of diverticulosis with fold thickening at the junction ofthe descending and sigmoid colon without a significant stenosis. Nofistula track or extra luminal mass effect. 2. Remaining colon normal. Dictated by Chad Kam MD @ 06/23/2023 12:16:48 PM (Electronically Signed) Kulwinder Echeverria MD FLUOROSCOPY * MR ABDOMEN LIVER WWO (06/16/2023 3:03 PM CDT) Anatomical Region Laterality Modality Abdomen, LIVER Magnetic Resonan ce 06/17/2023 10:4 6 AM CDT Impressions 06/17/2023 10:46 AM CDT 1. 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 2. 0.9 cm cystic lesion neck of the pancreas; pleural side-branch IPMN; stable since 2019; MRCP and MRI of the pancreas and 2 year duration suggested. Dictated by Bita Gaming MD @ Jun 17 2023 10:46AM (Electronically Signed) [email or web address] Narrative 06/17/2023 10:46 AM CDT For Patients: ??As a result of the Cures Act, medical imaging exams and procedure reports are released immediately into your electronic medical record. ??You may view this report before your referring provider. ??If you have questions, please contact your health care provider. Neck of the INDICATION: Liver lesion; father assessment. Comparison: CT abdomen and pelvis dating back to April 29, 2019 and ??the most recent study June 09, 2023; MRI of the abdomen May 18, 2019. TECHNIQUE: Precontrast T1 and T2 weighted imaging; T2 haste imaging; diffusion-weighted imaging; an endograft phase imaging; postcontrast imaging including subtraction; 10 cc of Gadavist contrast was injected. FINDINGS: A 2.1 x 1.4 cm cavernous hemangioma segment 7 of the liver; stable since 2019. No focal hepatic or splenic pathology. A 0.9 cm cystic lesion neck of the pancreas; stable; side-branch IPMN. No evidence of pancreatic ductal dilatation. No peripancreatic inflammatory changes. Status post cholecystectomy. No adrenal pathology. Kidneys are unremarkable. No retroperitoneal lymphadenopathy. No evidence of abdominal ascites. Procedure Note Bita Gaming MBBS - 06/17/2023 For Patients: As a result of the s Act, medical imagingexams and procedure reports are released immediately into your electronicmedical record. You may view this report before your referring provider.If you have questions, please contact your health care provider. Neck of the INDICATION: Liver lesion; father assessment. Comparison: CT abdomen and pelvis dating back to April 29, 2019 and the most recentstudy June 09, 2023; MRI of the abdomen May 18, 2019. TECHNIQUE: Precontrast T1 and T2 weighted imaging; T2 haste imaging;diffusion-weighted imaging; an endograft phase imaging; postcontrastimaging including subtraction; 10 cc of Gadavist contrast was injected. FINDINGS: A 2.1 x 1.4 cm cavernous hemangioma segment 7 of the liver; stable [email or web address]. No focal hepatic or splenic pathology. A 0.9 cm cystic lesion neckof the pancreas; stable; side-branch IPMN. No evidence of pancreaticductal dilatation. No peripancreatic inflammatory changes. Status postcholecystectomy. No adrenal pathology. Kidneys are unremarkable. Noretroperitoneal lymphadenopathy. No evidence of abdominal ascites. IMPRESSION: 1. A 2.1 x 1.4 cm cavernous hemangioma in segment 7 of the liver; stablesince April 2019. 2. 0.9 cm cystic lesion neck of the pancreas; pleural side-branch IPMN;stable since 2019; MRCP and MRI of the pancreas and 2 year durationsuggested. Dictated by Bita Gaming MD @ Jun 17 2023 10:46AM (Electronically Signed) [email or web address] Merline Barrera MD MR * CT ABDOMEN PELVIS W (06/09/2023 10:25 AM PBX WIRE CHIEF) Only the most recent of2 resultswithin the time period is included. Anatomical Region Laterality Modality Abdomen, Pelvis, AORTA, LIVER, SPLEEN Computed Tomography 06/09/2023 10:5 8 AM PBX WIRE CHIEF Impressions 06/09/2023 10:58 AM PBX WIRE CHIEF 1. Colonic diverticulosis without diverticulitis. 2. There is a 1.9 centimeter indeterminate liver lesion. In a relatively young patient without history of malignancy or risk for primary hepatic malignancy this is unlikely to be of any clinical significance. MR abdomen without and with contrast, liver mass protocol would likely clarify the etiology if clinically necessary. Please note that all CT scans at this facility use dose modulation, iterative reconstruction, and/or weight-based dosing when appropriate to reduce radiation dose to as low as reasonably achievable. Dictated by Sophie Guzman MD @ 06/09/2023 10:58:07 AM (Electronically Signed) Narrative 06/09/2023 10:58 AM PBX WIRE CHIEF For Patients: ??As a result of the Cures Act, medical imaging exams and procedure reports are released immediately into your electronic medical record. ??You may view this report before your referring provider. ??If you have questions, please contact your health care provider. INDICATION: Diverticulitis of colon, left lower quadrant abdominal pain COMPARISON: 10/17/2020, 10/14/2021, 01/10/2022, 10/02/2021, 05/12/2023 TECHNIQUE: CT of the abdomen and pelvis with intravenous contrast. Multiplanar reformats are included. Contrast: 100 mL Omnipaque 350 FINDINGS: Lung bases: Mild linear scarring in the right lower lobe. Small unchanged left lower lobe subpleural nodule. Liver: There is a 1.9 x 1.6 centimeter somewhat ill-defined hypoenhancing lesion in hepatic segment 7. Probably present since at least 10/02/2021 but not definitely seen before that. May have not been as well seen due to the degree of hepatic steatosis. Gallbladder and bile ducts: Cholecystectomy. No bile duct dilation. Pancreas: Normal. Spleen: Normal. Adrenal glands: Normal. Kidneys: Normal parenchyma. No cyst or solid mass. No calculi. No urinary tract dilation. Urinary bladder: Normal. Vessels: Normal. Pelvis: Physiologic appearance of the uterus and both adnexa. Bowel: There is a small burden of diverticula in the descending and sigmoid colon. No diverticulitis. No dilated or inflamed bowel. The appendix is normal. Moderate stool burden. Lymph nodes: No adenopathy. Peritoneum: No ascites. Bones: No fractures. No focal worrisome bone lesions. Abdominal wall: No hernia. Procedure Note Sophie Guzman MD - 06/09/2023 For Patients: As a result of the Cures Act, medical imagingexams and procedure reports are released immediately into your electronicmedical record. You may view this report before your referring provider.If you have questions, please contact your health care provider. INDICATION: Diverticulitis of colon, left lower quadrant abdominal pain COMPARISON: 10/17/2020, 10/14/2021, 01/10/2022, 10/02/2021, 05/12/2023 TECHNIQUE: CT of the abdomen and pelvis with intravenous contrast. Multiplanarreformats are included. Contrast: 100 mL Omnipaque 350 FINDINGS: Lung bases: Mild linear scarring in the right lower lobe. Small unchangedleft lower lobe subpleural nodule. Liver: There is a 1.9 x 1.6 centimeter somewhat ill-defined hypoenhancinglesion in hepatic segment 7. Probably present since at least 2but not definitely seen before that. May have not been as well seen due tothe degree of hepatic steatosis. Gallbladder and bile ducts: Cholecystectomy. No bile duct dilation. Pancreas: Normal. Spleen: Normal. Adrenal glands: Normal. Kidneys: Normal parenchyma. No cyst or solid mass. No calculi. No urinarytract dilation. Urinary bladder: Normal. Vessels: Normal. Pelvis: Physiologic appearance of the uterus and both adnexa. Bowel: There is a small burden of diverticula in the descending andsigmoid colon. No diverticulitis. No dilated or inflamed bowel. Theappendix is normal. Moderate stool burden. Lymph nodes: No adenopathy. Peritoneum: No ascites. Bones: No fractures. No focal worrisome bone lesions. Abdominal wall: No hernia. IMPRESSION: 1. Colonic diverticulosis without diverticulitis. 2. There is a 1.9 centimeter indeterminate liver lesion. In a relativelyyoung patient without history of malignancy or risk for primary hepaticmalignancy this is unlikely to be of any clinical significance. MR abdomenwithout and with contrast, liver mass protocol would likely clarify theetiology if clinically necessary. Please note that all CT scans at this facility use dose modulation,iterative reconstruction, and/or weight-based dosing when appropriate toreduce radiation dose to as low as reasonably achievable. Dictated by Sophie Guzman MD @ 06/09/2023 10:58:07 AM (Electronically Signed) Merline Barrera MD CT * (ABNORMAL) URINALYSIS MICROSCOPIC (05/12/2023 6:08 PM PBX WIRE CHIEF) RBC 0-2 0-2, None Seen /HPF 05/12/2023 6:38 PM PBX WIRE CHIEF [facility] WBC 6-10(A) 0-2, 3-5, None Seen /HPF 05/12/2023 6:38 PM PBX WIRE CHIEF [facility] BACTERIA Moderate(A ) None Seen, Rare, Few Bacteria/ HPF 05/12/2023 6:38 PM PBX WIRE CHIEF [facility] EPITHELIAL CELLS Many(A) None Seen, Few Epi/HPF 05/12/2023 6:38 PM PBX WIRE CHIEF [facility] Urine URINE SPECIMEN / Unknown Non-Blood / Unknown 05/12/2023 6:08 PM PBX WIRE CHIEF 05/12/2023 6:11 PM PBX WIRE CHIEF Albertina ESCALANTE URINE Performing Organization Address City/[facility]/ZIP Co de Phone Number [facility] [address] [place] [address] * URINE CULTURE (05/12/2023 6:08 PM PBX WIRE CHIEF) CULTURE No growth (<1,000 CFU/mL) 05/13/2023 3:14 PM PBX WIRE CHIEF [facility] Urine URINE SPECIMEN / Unknown Non-Blood / Unknown 05/12/2023 6:08 PM PBX WIRE CHIEF 05/12/2023 6:11 PM PBX WIRE CHIEF Albertina ESCALANTE MICROBIOLOGY Performing Organization Address City/[facility]/ZIP Co de Phone Number [facility] [address] [place] [address], * URINE (05/12/2023 6:08 PM PBX WIRE CHIEF) ,URIN E Negative Negative 05/12/2023 6:22 PM PBX WIRE CHIEF [facility] Urine URINE SPECIMEN / Unknown Non-Blood / Unknown 05/12/2023 6:08 PM PBX WIRE CHIEF 05/12/2023 6:11 PM PBX WIRE CHIEF Albertina ESCALANTE URINE Performing Organization Address City/[facility]/ZIP Co de Phone Number [facility] [address] [place] [address] * LC HCV ANTIBODY RFX TO QUANT PCR (04/08/2022 1:05 PM PBX WIRE CHIEF) [facility] HCV Ab <0.1 0.0 - 0.9 s/co ratio 04/10/2022 4:08 PM PBX WIRE CHIEF [facility] ([facility]) Blood BLOOD SPECIMEN / Unknown Venipuncture / Unknown 04/08/2022 1:05 PM PBX WIRE CHIEF 04/08/2022 1:08 PM PBX WIRE CHIEF Narrative [facility] ([facility]) - 04/10/2022 4:08 PM PBX WIRE CHIEF Performed at: ??[address] ??[id number] Box Printer: Zafar Lama MD, Phone: ??[phone] Merline Barrera MD LABORATORY Performing Organization Address [facility] de Phone Number [facility] ([facility]) [address] [place] [address] * HIV-1/O/2, 4TH GENERATION (04/08/2022 1:05 PM PBX WIRE CHIEF) [facility] HIV Scr 4th Gen Non Reactive Non Reactive 04/10/2022 9:09 AM PBX WIRE CHIEF [facility] ([facility]) Comment: HIV Negative HIV-1/HIV-2 antibodies and HIV-1 p24 antigen were NOT detected. There is no laboratory evidence of HIV infection. Blood BLOOD SPECIMEN / Unknown Venipuncture / Unknown 04/08/2022 1:05 PM PBX WIRE CHIEF 04/08/2022 1:08 PM PBX WIRE CHIEF Narrative [facility] ([facility]) - 04/10/2022 9:09 AM PBX WIRE CHIEF Performed at: ??[address] ??[id number] Box Printer: Zafar Lama MD, Phone: ??[phone] Merline Barrera MD LABORATORY Performing Organization Address [facility]/ZIP Co de Phone Number [facility] ([facility]) [address] [place], [place] [address] * HPV HIGH RISK (12/10/2021 4:35 PM CDT) TYPE 16 Negative Negative 12/15/2021 5:37 PM CDT [facility] TYPE 18 Negative Negative 12/15/2021 5:37 PM CDT [facility] TRA LABORATORY OTHER HIGH RISK TYPES Negative Negative 12/15/2021 5:37 PM CDT [facility] Other (Cervical) Non-Blood / Unknown 12/10/2021 4:35 PM CDT 12/11/2021 4:11 PM CDT Narrative [facility] - 12/15/2021 5:37 PM CDT HPV types 16, 18, 31, 33, 35, 39, 45, 51, 52, 56, 58, 59, 66 and 68 DNA were undetectable or below the pre-set threshold. Methodology: [employer] Irma 4800 HPV Test Merline Barrera MD MICROBIOLOGY [facility] [address] [place] [address], [place] from Last 3 Months or Most Recently Relevant to Health Maintenance Advance Directives * Full Code (Latest Code Status on File) Date Activated Date Inactivated Comments 11/27/2022 10:50 PM 11/28/2022 2:54 PM Question Answer Comments Code Status Discussion: Other * Full Code Date Activated Date Inactivated Comments 07/22/2021 8:36 AM 07/22/2021 12:45 PM Question Answer Comments Code Status Discussion: Discussed * Full Code Date Activated Date Inactivated Comments 07/01/2021 9:19 PM 07/03/2021 12:20 PM Question Answer Comments Code Status Discussion: Reviewed Preferences * Full Code Date Activated Date Inactivated Comments 02/17/2021 12:31 PM 02/17/2021 5:48 PM Question Answer Comments Code Status Discussion: Per Existing Order * Full Code Date Activated Date Inactivated Comments 10/01/2020 9:10 AM 10/01/2020 1:48 PM Question Answer Comments Code Status Discussion: Discussed Care Teams Instructional Technology Teacher Relationship Specialty Start Date End Date Merline Barrera MD [address] [place] [address] PCP - General Family Practice 04/16/17 Sarwat Miles MD [address] [place] [address] Consulting Physician Surgery - General 06/09/19 Lamar Mayer RN [address] [place] [address] Registered Nurse Registered Nurse 06/09/[address] [place] [address] Registered Dietitian Dye Expert 06/09/19 Merline Barrera MD [address] [place] [address] Referring Provider Family Practice 07/15/23
[2023-07-28 13:32] LABS: Chlamydia DNA Amplified* NOT DETECTED (No Detected); GC DNA Amplified* NOT DETECTED (No Detected)
== END 2023-07-28 10:16 | disposition home or self-care (01) ==
PROVIDERS: PCP Family Medicine; Visit Provider Registered Nurse
DX: Z34.91 Encounter for supervision of normal pregnancy, unspecified, first trimester (principal); Z3A.09 9 weeks gestation of pregnancy
CPT/HCPCS: 76817; 82565; 82570; 84156; 84450; 84460; 84520; 84550; 86592; 86703; 86704; 86706; 86762; 86787; 86803; 86850; 86900; 86901; 87086; 87340; 87491; 87591; T1013

== ENCOUNTER 2023-08-28 16:39 | Emergency (ER) | payer MEDICAID, SELFPAY ==
[2023-08-28 16:45] VITALS: BP 126/80; PULSE 93; RESP 18; TEMP 36.2; O2SAT 99; BMI 40.3
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
[2023-08-28 17:02] VITALS: O2SAT 98
--- NOTE | 2023-08-28 17:11 | CRLHL7_ITS ---
For Patients: As a result of the Century Cures Act, medical imaging exams and procedure reports are released immediately into your electronic medical record. You may view this report before your referring provider. If you have questions, please contact your health care provider. INDICATION: Abnormal vaginal bleeding in early . TECHNIQUE: Transabdominal and transvaginal limited obstetric ultrasound examination of the pelvis was performed. Grayscale and color Doppler images were obtained. COMPARISON: Pelvic ultrasound 07/28/2023. FINDINGS: Uterus: Normal in echotexture. No suspicious masses. Endometrium: No significant endometrial free fluid. Intrauterine gestation: Yes. cardiac activity: Yes. 157 bpm. [place]-rump length: 76 mm. Estimated gestational age of 30 weeks and 5 days. Yolk sac: Not visualized. Perigestational hemorrhage: No. Estimated sonographic due date: 02/28/2024. Right Ovary: Measures 4.1 x 2.0 x 2.7 cm. No suspicious masses. Normal arterial and venous flow on color Doppler imaging. Left ovary: Measures 3.4 x 1.8 x 3.1 cm. No suspicious masses. Normal arterial and venous flow on color Doppler imaging. Cul-de-sac: No free fluid. Other: The cervix measures 3.8 cm in length. The placenta is posterior in location. IMPRESSION: Single viable intrauterine with estimated gestational age of 13 weeks and 5 days by crown-rump length, and estimated due date of 02/28/2024. Dictated by Elkin Avendaño MD @ 08/28/2023 6:45:17 PM (Electronically Signed)
--- NOTE | 2023-08-28 17:11 | CRLHL7_ITS ---
For Patients: As a result of the Century Cures Act, medical imaging exams and procedure reports are released immediately into your electronic medical record. You may view this report before your referring provider. If you have questions, please contact your health care provider. INDICATION: Dyspnea. Chest pain. TECHNIQUE: Multiplanar CT pulmonary angiogram was performed after the administration of 95 mL of Isovue 370 intravenous contrast. COMPARISON: None. FINDINGS: Lower neck: The visualized thyroid is unremarkable. Cardiovascular: Contrast opacification of the pulmonary arterial tree is adequate. Heart size is normal. Thoracic aorta and pulmonary artery are normal in caliber. No significant atherosclerotic calcifications of the aortic arch. No significant coronary arterial calcifications. No pulmonary embolus. Mediastinum and lymph nodes: Unremarkable. No pathologic mediastinal or hilar lymphadenopathy by size criteria. Lungs: No focal consolidation. Dependent atelectasis. Linear bandlike opacification of the lung bases bilaterally, likely subsegmental atelectasis and/or scarring. Airways: The trachea remains patent and midline. Mild diffuse peribronchial wall thickening. Pleura: No pleural effusions or pneumothorax Chest wall: Unremarkable. Bones: No acute osseous abnormalities. Mild degenerative changes of the thoracic spine. Upper abdomen: Cholecystectomy. Otherwise, the upper abdomen appears within normal limits. No reflux of contrast material into the IVC. IMPRESSION: 1. No pulmonary embolus. No CT evidence of right heart strain. 2. No acute intrathoracic pathology. Please note that all CT scans at this facility use dose modulation, iterative reconstruction, and/or weight-based dosing when appropriate to reduce radiation dose to as low as reasonably achievable. Dictated by Elkin Avendaño MD @ 08/28/2023 6:47:50 PM (Electronically Signed)
--- NOTE | 2023-08-28 17:12 | CRLHL7_ITS ---
For Patients: As a result of the Century Cures Act, medical imaging exams and procedure reports are released immediately into your electronic medical record. You may view this report before your referring provider. If you have questions, please contact your health care provider. INDICATION: Right upper quadrant pain. Elevated serum AST COMPARISON: Today`s CT of the chest. TECHNIQUE: Right upper quadrant grayscale and limited color Doppler ultrasound. FINDINGS: Liver: Diffusely increased hepatic parenchymal echotexture consistent with hepatic steatosis. Homogeneous echogenic nonshadowing focus in the posterior subcapsular aspect of the right hepatic lobe measuring 2.5 cm in greatest dimension consistent with a typical hemangioma for which no further workup or ongoing imaging surveillance is indicated in low risk patient is (patients with no known primary malignancy or significant underlying liver disease). No intrahepatic biliary ductal dilatation. Smooth contour. Normal hepatopedal portal venous blood flow. Gallbladder: Cholecystectomy. CBD: 4mm Pancreas: 10 mm round circumscribed anechoic unilocular cyst in the pancreatic neck. Right Kidney: Normal echotexture. No hydronephrosis. No convincing sonographic evidence of nephrolithiasis. Midline Vasculature: Unremarkable where visualized. Peritoneal Cavity: No significant ascites. Additional Findings: None. IMPRESSION: 1. Abnormal hepatic parenchymal echotexture consistent with hepatic steatosis. 2. Incidental liver lesion consistent with a hemangioma measuring less than 3 cm for which no further workup or ongoing imaging surveillance is indicated in low risk patients as discussed above. Correlation with the patient`s clinical history is recommended. 3. 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 MRI is recommended for confirmation of the simple cystic nature of this incidental finding and to assess the remainder of the pancreas which is incompletely imaged on this ultrasound. Recommendation: Nonemergent pancreas protocol MRI (without and with intravenous contrast). If the patient can not undergo an MRI then a pancreas protocol CT is recommended. Dictated by Manuel Villasenor MD @ 08/28/2023 6:50:32 PM (Electronically Signed)
--- OUTSIDE RECORDS SUMMARY | 2023-08-28 17:29 | XMS_ITS | Continuity of Care Document ---
Author Organization [facility] Address [address] [address] [place] [address] Phone Care Team Providers Care Baking Powder Mixer Name Role Phone No Information Unavailable Unavailable Allergies, Adverse Reactions, Alerts Substance Reaction Status Criticality No Known Allergies Active No Inform ation Medications Medication Instructions Dosage Effective Dates (start - stop) Status Comments Linzess 290 mcg capsule take 1 Tablet by Oral route every day 1 Tablet - Active dicyclomine 20 mg tablet dicyclomine 20 mg three times daily - Active Miralax 17 gram/dose oral powder take one 8.3 ounce bottle by oral route per colon clean out instructions - Active Linzess 290 mcg capsule take 1 capsule b y oral route every day on an empty stomach at least 30 minutes before 1st meal of the day 290 MCG - Active metoclopramide 5 mg/5 mL oral solution take 10 milliliter by oral route 3 times every day 30 minutes before meals - Active omeprazole 40 mg capsule,delayed release take one tablet 1/2 hour before breakfast and dinner - Active propranolol 20 mg tablet take 1 tablet by oral route 2 times every day 20 MG - Active cyclobenzaprine 5 mg tablet take 1 tablet by oral route 3 times every day 5 MG - Active Procedures Procedure Date Offic/outpt E&m Estab Mod-hi 2 24 Offic/outpt E&m Estab Mod-hi 23 Offic/outpt E&m Estab Mod-hi 4 22 Prolong OP E&M Offic/outpt E&m Estab Low-mod 2 Telephone E&M III 21-30 Min CORDELL Advance Directives Directive Yes / No Effective Date File Name No Information Encounters Encounter Description Practice Location Reason(s) For Visit Diagnoses Date Provider Providers Copied on Encounter [facility], [address] [address], [place], [id number], [place] tel:[phone] No Information No Information Offic/outpt E&m Estab Mod-hi [address] [facility], [address] [address], [place], [id number], [place] tel:[phone] [facility] Comment (chief complaint) Irritable bowel syndrome with constipationNa usea and vomiting, unspecified vomiting typeGastropare sis 4 Brenda Chawla. [address], [id number], [place]. tel:[phone] Referring Provider: Merline Barrera MD, [address] [place] [address], [address]. tel:[phone] [facility], [address] [address], [place], [id number], [place] tel:[phone] [facility] No Information Victoriano Valencia. [address] [facility] [address], [place], [id number], [place]. tel:[phone] [facility], [address] [address], [place], [id number], [place] tel:[phone] No Information No Information Offic/outpt E&m Estab Mod-hi [address] [facility], [address] [address], [place], [id number], [place] tel:[phone] [facility] GI Symptoms or Concerns (chief complaint) Irritable bowel syndrome with constipationNa usea and vomiting, unspecified vomiting typeBloatingEp igastric painDietary counseling and surveillance 3 Gayle Rivera. [address] [facility] [place] [address], [place], [id number], [place]. tel:[phone] Referring Provider: Merline Barrera MD, [address] [place] [address], [place], [address]. tel:[phone] [facility], [address] [address], [place], [place], [id number], [place] tel:[phone] [facility] No Information 3 Victoriano Valencia. [address] [facility], [facility] [address], [place], [id number], [place]. tel:[phone] [facility], [address] [address], [place], [place], [id number], [place] tel:[phone] [facility] No Information 3 Gayle Rivera. [address] [facility], [facility] [address], [place], [place], [id number], [place]. tel:[phone] Referring Provider: Referral Self, USE FOR SELF REFERRALS. Offic/outpt E&m Estab Mod-hi [address] [facility], [address] [address], [facility] [place], [id number], [place] tel:[phone] [facility] GI Symptoms or Concerns (chief complaint) Irritable bowel syndrome with constipationGa stroesophageal reflux disease, unspecified whether esophagitis presentChest pain, unspecified typeNausea and vomiting, unspecified vomiting type 2 Gayle Rivera. [address] [facility], [place], [place], [id number], [place]. tel:[phone] Referring Provider: Referral Self, USE FOR SELF REFERRALS. Offic/outpt E&m Estab Low-mod [facility], [address] [address], [facility] [place], [id number], [place] tel:[phone] [facility] GI Symptoms or Concerns (chief complaint) Gastroparesis 2 Mary Anderson. [address] [place] [address], [id number], [place]. tel:[phone] Referring Provider: Merline Barrera MD, [address] [facility], [place], [address]. tel:[phone] [facility], [address] [address], [place], [id number], [place] tel:[phone] [facility] No Information 2 Victoriano Valencia. [address], [id number], [place]. tel:[phone] Telephone E&M III 21-30 Min CORDELL [facility], [address] [address], [place], [id number], [place] tel:[phone] [facility] GI Symptoms or Concerns (chief complaint) Generalized abdominal painFocal active colitisBloatin gElevated C-reactive protein (CRP) 1 Barbara Aquino. [facility], [id number], [place]. tel:[phone] Referring Provider: Referral Self, USE FOR SELF REFERRALS. [facility], [address] [address], [place], [id number], [place] tel:[phone] [facility] No Information 1 Yas Adkins. [address] [place] [address], [id number], [place]. tel:[phone] Family History Family Member Type Diagnosis Age At Onset Mother Problem (finding) Mother Problem (finding) malignant neoplasm of u rinary bladder Father Problem (finding) Alive and well Sister Problem (finding) Alive and well Brother Problem (finding) Alive and well Immunizations Vaccine Date Status Comments Afluria Qd administered Note: [facility] bi-directional interface ; Source: Other Registry Pneumococcal conjugate vacci ne 20-valent (PCV20), polysaccharide [id number] conjugate, adjuvant, preservative free administered Note: [facility] bi-direct ional interface ; Source: Other Registry tetanus toxoid, reduced diphtheria toxoid, and acellular pertussis vaccine, adsorbed administered Note: [facility] b i-directional interface ; Source: Other Registry tetanus toxoid, reduced diphtheria toxoid, and acellular pertussis vaccine, adsorbed administered Note: [facility] b i-directional interface ; Source: Other Registry Ambreenuria Qd administered Note: [facility] bi-directional interface ; Source: Other Registry SARS-COV-2 (COVID-19) vaccin e, mRNA, spike protein, LNP, bivalent, preservative free, 30 mcg/0.3 mL dose, cyndy-sucrose formulation administered Note: [facility] bi-direct ional interface ; Source: Other Registry SARS-COV-2 (COVID-19) vaccin e, mRNA, spike protein, LNP, bivalent booster, preservative free, 30 mcg/0.3 mL dose, cyndy-sucrose formulation administered Note: [facility] bi-d irectional interface ; Source: Other Registry Ambreenuria Qd administered Note: [facility] bi-directional interface ; Source: Other Registry SARS-COV-2 (COVID-19) vaccin e, mRNA, spike protein, LNP, preservative free, 30 mcg/0.3mL dose administered Note: [facility] bi-direct ional interface ; Source: Other Registry SARS-COV-2 (COVID-19) vaccin e, mRNA, spike protein, LNP, preservative free, 30 mcg/0.3mL dose administered Note: [facility] bi-direct ional interface ; Source: Other Registry Ambreenuria Qd administered Note: [facility] bi-directional interface ; Source: Other Registry Ambreenuria Qd administered Note: M [facility] bi-directional interface ; Source: Other Registry tetanus toxoid, reduced diphtheria toxoid, and acellular pertussis vaccine, adsorbed administered Note: [facility] b i-directional interface ; Source: Other Registry tetanus toxoid, reduced diphtheria toxoid, and acellular pertussis vaccine, adsorbed administered Note: [facility] b i-directional interface ; Source: Other Registry Payers Payer name Insurance type Covered alliance party ID [id number] timorgan(s) No Information Social History Type Description Quantity Date Captured Comments Sex Female Smoking Status No Information Chief Complaint And Reason For Visit No Information Reason For Referral Reason For Referral No Information Plan Of Treatment Date Type Action Status Goal Lifestyle education regardin g diet completed Referral Ordered: follow-up visit with [facility] 5 Months Appointment date/timeframe: 5 Months ordered [...] Date Complaint History Of Prese nt Illness Comment Kayleigh Stahl is a 33-year-old female seen in the office for follow-up of nausea / vomiting in the setting of gastroparesis as well as constipation. She is accompanied by a bilingual interpreter today. In review, she has a past medical history of GERD, previous cholecystectomy, and gastroparesis. A gastric emptying study at [facility] in November 2021 showed only 22% emptying by 90 minutes. She was last seen in our [facility] clinic in June 2022, at which time she was with her third child and on amitriptyline, MiraLax, omeprazole, Pepcid, and dicyclomine. Today, she reports that she is only taking metoclopramide, omeprazole 40 mg daily, and MiraLax and she has been out of MiraLax now for 3 weeks. She is having daily nausea with intermittent vomiting, worse after meals or first thing in the morning, heartburn, epigastric to left-sided abdominal pain, bloating, and constipation. She denies any hematemesis, melena, or hematochezia. She has lost weight over the years due to her GI Symptoms or Concerns Kayleigh Vic Stahl is a 32-year-old Chinese-speaking female, who was present today in the [facility] with a professional Chinese-speaking translator and interpreter. She is 20 weeks gestation and returns [...] female who is present today in the [facility] to discuss gastroparesis, nausea/vomiting, abdominal pain and bowel irregularity. 55 minutes was spent on this encounter. She is seen through the assistance of a professional language line bilingual interpreter. Her significant other Erik is present as well who also speaks beninese. Symptoms have been present for several months. [...] gastroparesis. The history is obtained through an translator and interpreter. She has been seen previously by us [...] telehealth appointment with the help of a Chinese-speaking translator and interpreter for the evaluation of abdominal discomfort, bloating, [...] well as some laboratory work done through [facility]; these records will be requested.There is no [...] No Information Instructions Date Instruction Additional Infor maddiedesire 1. Cleanse colon wit h Miralax/Gatorade- mix one 8.3 ounce bottle of Miralax with 64 ounces of Gatorade- drink 1 cup every 15 minutes until gone2. On the day following the cleanse start Linzess 290 mcg once daily 30 minutes before a meal3. Continue omeprazole 40 mg daily4. Restart dicyclomine 20 mg three times daily for abdominal cramping5. Follow up with Elisa Araujo CNP, in 3 months or reach out sooner if needed Related to Gastroparesis Lifestyle education regarding di et Related to Dietary counseling and surveillance I had discussion reg arding possible gastroparesis with her through the translator and interpreter. Supplied gastric emptying folder. We discussed smaller frequent meals, blending her food. Continue pantoprazole q.a.m. [place] of Reglan liquid 10 mg half an [...] Generalized abdominal pain Assessments Type Assessment Date No Information Patient Care Teams Name Effective Dates (start - stop) Status Members No Information
--- OUTSIDE RECORDS SUMMARY | 2023-08-28 17:29 | XMS_ITS | Referral Summary ---
Author Organization [place] Address [address] [place] [address] Care Team Providers Care Supervisor Beehive Kiln Name Role Phone Melchor, [facility] Primary Care Provider Kristy Jack MD Unavailable [phone] Allergies No known active allergies Medications [...] 01/26/2017 Bipolar disorder 01/25/2017 Overview: Diagnosed in [place] Mixed obsessional thoughts and acts 01/25/2017 Overview: Diagnosed in [place] Labor and delivery indication for care or [...] Weight 112.6 kg (248 lb 3.2 oz) 07/11/2 023 12:30 PM CDT Height 162.6 cm (5' 4) 10/13/2022 12:3 0 PM CDT Body Mass Index 42.6 10/13/2022 12:30 PM CDT Plan of Treatment Not on file Procedures Procedure Name Priority Date/Time Associated Diagnosis Comments COMPREHENSIVE METABOLIC PANEL Routine 10/16/2022 6:27 AM CDT HEPATITIS C ANTIBODY Add-On 10/13/2022 1:14 PM CDT ABSTRACT HIV Routine 04/28/2022 2:58 PM TYPEWRITER ASSEMBLY AND PARTS INSPECTOR PAP IMAGED THIN LAYER SCREEN Routine 08/05/2012 [...] LAB - BLOOD ORDERABL ES UR LABORATORY [facility] Acute Care Lab [address] [facility], [address] [place] [address] [phone] * Hepatitis C antibody (10/13/2022 1:14 PM [...] UM SPECIALTY CORE/PROT/ENDO UM Specialty Core/Prot/Endo [address] [facility], [address] [phone] * ABSTRACT HIV (04/28/2022 2:58 PM TYPEWRITER ASSEMBLY AND PARTS INSPECTOR) HIV 1&2 EXT Non-Reacti ve [facility] Comment:SEE SCAN FOR REFEREN CE RANGE Blood 04/28/2022 2:58 PM TYPEWRITER ASSEMBLY AND PARTS INSPECTOR Narrative [facility] - 04/28/2022 2:58 PM TYPEWRITER ASSEMBLY AND PARTS INSPECTOR [facility] LAB RESULTS Provider Outside LAB - HIM EXTERNAL R ESULT Performing Organization Address City/[facility]/ZIP Co de Phone Number [address] [phone] * PAP imaged thin layer, screen (08/05/2012 12:00 AM CDT) PAP GUILLERMINA Manzo Report Patient Name: KAYLEIGH LOCKWOOD MR#: [id number] Specimen #: [id number] Collected: 08/05/2012 Received: 08/08/2012 Reported: 08/09/2012 13:41 [...] DC Thayer (ASCP) Processed and screened at [facility], [facility] CLINICAL HISTORY: LMP: 04/21/2012 , Papanicolaou Test Limitations: ??Cervical cytology is a screening test with limited sensitivity; regular screening is critical for cancer prevention; Pap tests are primarily effective for the diagnosis/preventi on of squamous cell carcinoma, not adenocarcinomas or other cancers. TESTING LAB LOCATION: [facility] [address] [place], [place] ??[address] COLLECTION SITE: Client: ??[facility] Location: [facility] (R) COPATH Cytologic material (specimen) 08/05/2012 08/08/2012 12:52 PM CDT Berny Lopez MD LAB - [place] C LINICAL SPECIMEN COPATH from Last 3 Months or Most Recently Relevant to Health Maintenance Advance Directives For more information, please contact: [phone] * Full Code (Latest Code Status on File) Date Activated Date Inactivated Comments 10/13/2022 12:39 PM 10/16/2022 4:16 PM All basic a nd advanced life-sustaining interventions are performed as appropriate Question Answer Comments Code status determined by: Unable to dis cuss and no AD/POLST on file; continue PREVIOUSLY ORDERED code status Care Teams Supervisor Beehive Kiln Relationship Specialty Start Date End Date [facility], [address] [address] PCP - General 09/25/18 Kristy Jack MD [address] [facility] [address] [place] [address] Assigned OBGYN Provider 07/25/22
--- OUTSIDE RECORDS SUMMARY | 2023-08-28 17:29 | XMS_ITS | Clinical Summary ---
Author Organization [place] Address [address] [place] [address] Care Team Providers Care Motorcycle Maker Name Role Phone Clinic, [facility] Primary Care Provider Kristy Jack MD Unavailable [phone] Allergies No known active allergies Medications [...] 01/26/2017 Bipolar disorder 01/25/2017 Overview: Diagnosed in [place] Mixed obsessional thoughts and acts 01/25/2017 Overview: Diagnosed in [place] Labor and delivery indication for care or [...] Administration Dates Next Due COVID-19 MONOVALENT 12+ (SoftArt) 01/14/2021,12/05 Influenza Vaccine >6 months,quad, PF ,12/10/2021,01/28/2021, [...] CDT ABSTRACT HIV Routine 04/28/2022 2:58 PM SUPERVISOR QUILTING PAP IMAGED THIN LAYER SCREEN Routine 08/05/2012 [...] LAB - BLOOD ORDERABL ES UR LABORATORY [facility] Acute Care Lab [address] [facility], [address] [place] [id number] [phone] * Hepatitis C antibody (10/13/2022 1:14 PM [...] UM SPECIALTY CORE/PROT/ENDO UM Specialty Core/Prot/Endo [address] [facility] [address], [address] [place] [address], [facility] [phone] * ABSTRACT HIV (04/28/2022 2:58 PM SUPERVISOR QUILTING) HIV 1&2 EXT Non-Reacti ve [facility] Comment:SEE SCAN FOR REFEREN CE RANGE Blood 04/28/2022 2:58 PM SUPERVISOR QUILTING Narrative [facility] - 04/28/2022 2:58 PM SUPERVISOR QUILTING [facility] LAB RESULTS Provider Outside LAB - HIM EXTERNAL R ESULT [facility] [address] [place] [address], [facility] [phone] * PAP imaged thin layer, screen (08/05/2012 12:00 AM CDT) PAP GUILLERMINA Manzo Report Patient Name: KAYLEIGH LOCKWOOD MR#: [id number] Specimen #: [id number] Collected: 08/05/2012 Received: 08/08/2012 Reported: 08/09/2012 13:41 [...] DC Thayer (ASCP) Processed and screened at [facility], [facility] CLINICAL HISTORY: LMP: 04/21/2012 , Papanicolaou Test Limitations: ??Cervical cytology is a screening test with limited sensitivity; regular screening is critical for cancer prevention; Pap tests are primarily effective for the diagnosis/preventi on of squamous cell carcinoma, not adenocarcinomas or other cancers. TESTING LAB LOCATION: [facility] [address] [place], [place] ??[address] COLLECTION SITE: Client: ??[facility] Location: [facility] (R) COPATH Cytologic material (specimen) 08/05/2012 08/08/2012 12:52 PM CDT Berny Lopez MD LAB - [place] C LINICAL SPECIMEN COPATH from Last 3 Months or Most Recently Relevant to Health Maintenance Advance Directives For more information, please contact: [phone] * Full Code (Latest Code Status on File) Date Activated Date Inactivated Comments 10/13/2022 12:39 PM 10/16/2022 4:16 PM All basic a nd advanced life-sustaining interventions are performed as appropriate Question Answer Comments Code status determined by: Unable to dis cuss and no AD/POLST on file; continue PREVIOUSLY ORDERED code status Care Teams Motorcycle Maker Relationship Specialty Start Date End Date [facility], [address] [address] PCP - General 09/25/18 Kristy Jack MD [address] [facility] [address] [place] [address] Assigned OBGYN Provider 07/25/22
--- OUTSIDE RECORDS SUMMARY | 2023-08-28 17:30 | XMS_ITS | Continuity of Care Document ---
Author Organization [facility] Address [address] [address] [place] [address] Phone Care Team Providers Care Home Child Care Provider Name Role Phone No Information Unavailable Unavailable [...] Diagnoses Date Provider Providers Copied on Encounter [facility], [address] [address], [place], [id number], [place] tel:[phone] No Information No Information Offic/outpt E&m Estab Mod-hi 2 [facility], [address] [address], [place], [id number], [place] tel:[phone] [facility] Comment (chief complaint) Irritable bowel syndrome with constipationNa usea and vomiting, unspecified vomiting typeGastropare sis 4 Brenda Chawla. [address], [id number], [place]. tel:[phone] Referring Provider: Merline Barrera MD, [address] [place] [address], [address]. tel:[phone] [facility], [address] [address], [place], [id number], [place] tel:[phone] [facility] No Information Victoriano Valencia. [address] [facility] [address], [place], [id number], [place]. tel:[phone] [facility], [address] [address], [place], [id number], [place] tel:[phone] No Information No Information Offic/outpt E&m Estab Mod-hi 4 [facility], [address] [address], [place], [id number], [place] tel:[phone] [facility] GI Symptoms or Concerns (chief complaint) Irritable bowel syndrome with constipationNa usea and vomiting, unspecified vomiting typeBloatingEp igastric painDietary counseling and surveillance 3 Gayle Rivera. [address] [facility], [place] [address], [place], [id number], [place]. tel:[phone] Referring Provider: Merline Barrera MD, [address] [place] [address], [place], [address]. tel:[phone] [facility], [address] [address], [place], [place], [id number], [place] tel:[phone] [facility] No Information 3 Victoriano Valencia. [address] [facility], [facility] [address], [place], [id number], [place]. tel:[phone] [facility], [address] [address], [place], [place], [id number], [place] tel:[phone] [facility] No Information 3 Gayle Rivera. [address] [facility], [facility] [address], [place], [place], [id number], [place]. tel:[phone] Referring Provider: Referral Self, USE FOR SELF REFERRALS. Offic/outpt E&m Estab Mod-hi 4 [facility], [address] [address], [facility] [place], [id number], [place] tel:[phone] [facility] GI Symptoms or Concerns (chief complaint) Irritable bowel syndrome with constipationGa stroesophageal reflux disease, unspecified whether esophagitis presentChest pain, unspecified typeNausea and vomiting, unspecified vomiting type 2 Gayle Rivera. [address] [facility], [address], [place], [place], [id number], [place]. tel:[phone] Referring Provider: Referral Self, USE FOR SELF REFERRALS. Offic/outpt E&m Estab Low-mod [facility], [address] [address], [facility] [place] [id number], [place] tel:[phone] [facility] GI Symptoms or Concerns (chief complaint) Gastroparesis 2 Mary Anderson. [address] [place] [address], [id number], [place]. tel:[phone] Referring Provider: Merline Barrera MD, [address] [facility], [place], [address]. tel:[phone] [facility], [address] [address], [place], [id number], [place] tel:[phone] [facility] No Information 2 Victoriano Valencia. [address], [id number], [place]. tel:[phone] Telephone E&M III 21-30 Min CORDELL [facility], [address] [address], [place], [id number], [place] tel:[phone] [facility] GI Symptoms or Concerns (chief complaint) Generalized abdominal painFocal active colitisBloatin gElevated C-reactive protein (CRP) 1 Barbara Aquino. [facility] [address], [id number], [place]. tel:[phone] Referring Provider: Referral Self, USE FOR SELF REFERRALS. [facility], [address] [address], [place], [id number], [place] tel:[phone] [facility] No Information 1 Yas Adkins. [address] [place] [address], [id number], [place]. tel:[phone] Family History Family Member Type Diagnosis Age At Onset Mother Problem (finding) Mother Problem (finding) malignant neoplasm of u rinary bladder Father Problem (finding) Alive and well Sister Problem (finding) Alive and well Brother Problem (finding) Alive and well Immunizations Vaccine Date Status Comments Afluria Qd administered Note: [facility] bi-directional interface ; Source: Other Registry Pneumococcal conjugate vacci ne 20-valent (PCV20), polysaccharide [id number] conjugate, adjuvant, preservative free administered Note: [facility] [...] Payer name Insurance type Covered democrat ID [id number] timorgan(s) No Information Social History Type Description Quantity Date Captured Comments Sex Female Smoking Status No Information Chief Complaint And Reason For Visit No Information Reason For Referral Reason For Referral No Information Plan Of Treatment Date Type Action Status Goal Lifestyle education regardin g diet completed Referral Ordered: follow-up visit with [facility] 5 Months Appointment date/timeframe: 5 Months ordered [...] as constipation. She is accompanied by a ict trainer today. In review, she has a past medical history of GERD, previous cholecystectomy, and gastroparesis. A gastric emptying study at [facility] in November 2021 showed only 22% emptying by 90 minutes. She was last seen in our [facility] clinic in June 2022, at which time [...] Concerns Kayleigh Vic Stahl is a 32-year-old Thai-speaking female, who was present today in the [facility] with a professional Thai-speaking watch case polisher. She is 20 weeks gestation and returns [...] female who is present today in the [facility] to discuss gastroparesis, nausea/vomiting, abdominal pain and bowel irregularity. 55 minutes was spent on this encounter. She is seen through the assistance of a professional language line interpretative dancer. Her significant other Erik is present as well who also speaks trinidadian. Symptoms have been present for several months. [...] gastroparesis. The history is obtained through an watch case polisher. She has been seen previously by us [...] telehealth appointment with the help of a Thai-speaking watch case polisher for the evaluation of abdominal discomfort, bloating, [...] well as some laboratory work done through [facility]; these records will be requested.There is no [...] arding possible gastroparesis with her through the watch case polisher. Supplied gastric emptying folder. We discussed smaller frequent meals, blending her food. Continue pantoprazole q.a.m. Chelsea of Reglan liquid 10 mg half an [...]
--- OUTSIDE RECORDS SUMMARY | 2023-08-28 17:30 | XMS_ITS | Clinical Summary ---
Author Organization [facility] Address [address] [place] [address] Care Team Providers Care Roof Tile Layer Name Role Phone Doctor, No Primary Care [...] Maternal Grandmother Diabetes Maternal Grandmother Cancer Mother roof bolting coal miner cancer of un known origin to patient [...] Comments Blood Pressure 131/90 02/19/2022 6:00 PM ARCH PAD CEMENTER Pulse 79 02/19/2022 6:00 PM ARCH PAD CEMENTER Temperature 36.5 ??C (97.7 ??F) 02/19/2022 4:09 PM CS T Respiratory Rate 21 02/19/2022 6:00 PM ARCH PAD CEMENTER Oxygen Saturation 99% 02/19/2022 6:00 PM ARCH PAD CEMENTER Inhaled Oxygen Concentration - - Weight 112.5 kg (248 lb) 12/01/2012 10:03 AM CDT Height 162.6 cm (5' 4) 12/01/2012 10:03 AM CDT Body Mass Index 42.57 12/01/2012 10:03 AM CDT Plan of Treatment Health Maintenance Due Date Last Done Comments Hepatitis C Screening 1988 Pap Smear 1988 Anxiety Screening (NARGIS-2) 1989 Depression Assessment (PHQ-2) 1989 COVID-19 Vaccine ( season) 2022 01/14/2021, 12/23/2020 Influenza Vaccine (Season Ended) 2023 12/10/2021, 01/28/2021, 03/13/2020, Additional history exists Adult Tetanus Booster 01/29/2027 01/29/2017, 013 Pneumococcal <65 Aged Out No longer e ligible based on patient's age to complete this topic Advance Directives For more information, please contact: [phone] * Full Code (Latest Code Status on File) Date Activated Date Inactivated Comments 12/02/2012 1:52 PM 12/05/2012 6:57 PM Question Answer Comments How was code status determined? Patient Care Teams Roof Tile Layer Relationship Specialty Start Date End Date Doctor, No No ad PCP - General Radiology 02/19/22
--- OUTSIDE RECORDS SUMMARY | 2023-08-28 17:30 | XMS_ITS | Referral Summary ---
Author Organization [facility] Address [address] [place] [address] Care Team Providers Care Website/Blog Editor Name Role Phone Doctor, No Primary Care [...] Comments Blood Pressure 131/90 02/19/2022 6:00 PM WIRE HANGER Pulse 79 02/19/2022 6:00 PM WIRE HANGER Temperature 36.5 ??C (97.7 ??F) 02/19/2022 4:09 PM CS T Respiratory Rate 21 02/19/2022 6:00 PM WIRE HANGER Oxygen Saturation 99% 02/19/2022 6:00 PM WIRE HANGER Inhaled Oxygen Concentration - - Weight 112.5 kg (248 lb) 12/01/2012 10:03 AM CDT Height 162.6 cm (5' 4) 12/01/2012 10:03 AM CDT Body Mass Index 42.57 12/01/2012 10:03 AM CDT Plan of Treatment Not on file Advance Directives For more information, please contact: [phone] * Full Code (Latest Code Status on File) Date Activated Date Inactivated Comments 12/02/2012 1:52 PM 12/05/2012 6:57 PM Question Answer Comments How was code status determined? Patient Care Teams Website/Blog Editor Relationship Specialty Start Date End Date Doctor, No No ad PCP - General Radiology 02/19/22
--- OUTSIDE RECORDS SUMMARY | 2023-08-28 17:30 | XMS_ITS | Clinical Summary ---
Author Organization [facility] Address [place], [place] [address] Care Team Providers Care Package Sealer Name Role Phone Merline Barrera MD Primary Care Provider Sarwat Miles MD Unavailable + Lamar Mayer RN Unavailable [phone] Unavailable [phone] Merline Barrera MD Unavailable [phone] Allergies No known active allergies Medications Medication Sig Dispensed Refills Start Date End Date Status aluminum-magnesium hydroxide-simethic one (MAALOX PLUS; MYLANTA) 200-200-20 mg/5 mL suspensionIndicati ons:Epigastric pain Take 15 mL by mouth 4 times daily if needed for GI Upset. 354 mL 06/29/19 23 Active polyethylene glycoL (MIRALAX) 17 gram/scoop powderIndications: Gastroparesis Mix 1 scoop (17 g) in liquid then take by mouth once daily if needed for Constipation. 1700 g 03/04/20 23 Active omeprazole (PRILOSEC) 20 mg Delayed-Release capsuleIndications :Abdominal pain, epigastric Take 1 Capsule (20 mg) by mouth once daily before a meal. 90 Capsule 2 04/15/19 24 Active vit 28/iron fum/folic (multivitamin folic acid 1 mg)Indications:Pre gnancy, unspecified gestational age Take 1 Tablet by mouth once daily. 30 Tablet 9 07/13/19 24 Active hydrOXYzine HCL (ATARAX) 25 mg tabletIndications: Anxiety Take 0.5-1 Tablets (12.5-25 mg) by mouth every 8 hours if needed for Anxiety. 60 Tablet 07/14/19 24 Active metoclopramide HCl (REGLAN) 10 mg tabletIndications: Nausea and vomiting, unspecified vomiting type Take 1 Tablet (10 mg) by mouth every 8 hours if needed for Nausea/Vomiting. 90 Tablet 07/30/19 24 Active ondansetron (ZOFRAN ODT) 4 mg disintegrating tabletIndications: Nausea and vomiting during Place 2 Tablets (8 mg) on the tongue every 8 hours if needed for Nausea/Vomiting. 15 Tablet 07/30/19 24 Active famotidine (PEPCID) 20 mg tabletIndications: Gastroesophageal reflux disease with esophagitis without hemorrhage Take 1 Tablet (20 mg) by mouth two times daily. 60 Tablet 07/30/19 24 024 Active fluticasone (50 mcg per actuation) nasal solution (FLONASE)Indicatio ns:Right ear pain SHAKE LIQUID AND USE 2 SPRAYS IN EACH NOSTRIL DAILY 48 g 2 08/06/19 24 Active enoxaparin (LOVENOX) 40 mg/0.4 mL injectionIndicatio ns:Acute pulmonary embolism, unspecified pulmonary embolism type, unspecified whether acute cor pulmonale present (HC),Anticoagulati on monitoring, INR range 2-3 Inject 1 mL (100 mg) subcutaneous every 12 hours. 180 mL 1 08/10/19 24 Active enoxaparin (LOVENOX) 100 mg/mL injectionIndicatio ns:Acute pulmonary embolism, unspecified pulmonary embolism type, unspecified whether acute cor pulmonale present (HC),Anticoagulati on monitoring, INR range 2-3 Inject 100 mg subcutaneous every 12 hours. 180 mL 1 08/10/19 24 Active sertraline (ZOLOFT) 100 mg tabletIndications: Anxiety,Panic attacks,Depression , unspecified depression type Take 0.5 Tablets (50 mg) by mouth once daily for 7 days, THEN 1 Tablet (100 mg) once daily for 7 days, THEN 1.5 Tablets (150 mg) once daily for 7 days, THEN 2 Tablets (200 mg) once daily. 60 Tablet 5 04/14/19 24 024 Discontinued(*P atient states no longer taking) cefuroxime axetil (CEFTIN) 500 mg tabletIndications: Diverticulitis Take 1 Tablet (500 mg) by mouth two times daily. 13 Tablet 05/15/19 24 024 Discontinued(*P atient states no longer taking) metroNIDAZOLE (FLAGYL) 500 mg tabletIndications: Diverticulitis Take 1 Tablet (500 mg) by mouth two times daily. 13 Tablet 05/15/19 24 024 Discontinued(*P atient states no longer taking) fluticasone (50 mcg per actuation) nasal solution (FLONASE)Indicatio ns:Right ear pain SHAKE LIQUID AND USE 2 SPRAYS IN EACH NOSTRIL DAILY 16 g 07/09/19 24 024 Discontinued potassium chloride (KLOR-CON M10) 10 mEq extended-release tablet (part/cryst)Indica tions:Hypokalemia Take 2 Tablets (20 mEq) by mouth once daily with a meal. 8 Tablet 07/13/19 24 024 Discontinued(*P atient states no longer taking) enoxaparin (LOVENOX) 40 mg/0.4 mL injectionIndicatio ns:Acute pulmonary embolism, unspecified pulmonary embolism type, unspecified whether acute cor pulmonale present (HC),Anticoagulati on monitoring, INR range 2-3 Inject 0.4 mL (40 mg) subcutaneous once daily. 30 mL 07/30/19 24 024 Discontinued(*M edication adjustment) enoxaparin (LOVENOX) 40 mg/0.4 mL injectionIndicatio ns:Acute pulmonary embolism, unspecified pulmonary embolism type, unspecified whether acute cor pulmonale present (HC),Anticoagulati on monitoring, INR range 2-3 Inject 0.4 mL (40 mg) subcutaneous every 12 hours. 30 mL 07/30/19 24 024 Discontinued enoxaparin (LOVENOX) 40 mg/0.4 mL injectionIndicatio ns:Acute pulmonary embolism, unspecified pulmonary embolism type, unspecified whether acute cor pulmonale present (HC),Anticoagulati on monitoring, INR range 2-3 Inject 1 mL (100 mg) subcutaneous every 12 hours. 08/09/19 24 024 Discontinued(Re order (E-cancel not sent)) Active Problems Patient Care Coordination No te Formatting of this note migh t be different from the original. Weight Management - Adult Surgical Program -- [place] Initial Consult 06/09/2019 with Sarwat Christianson MD Intake: Planned Operation: Payor: [employer] / Plan: [employer] / Product Type: *No Product type* / Est. Pgm Completion: December, Procedure Location: [place] Co-morbidities: Orders: Labs PENDING, ordered 06/09/2019 (H. [...] Concerns: 5 Problem Noted Date Diagnosed Date [facility] Supervision of high-risk 4 Overview: Kayleigh Akin Sampsones : 1990 [facility] ULTRASOUND/TESTING PATIENT [facility] CONSULT ON 08/09/23 Previous [facility] consult 2022 with Support person name: Musician Instrumental: Yes - Iranian ULTRASOUND TYPE: REASON FOR VISIT: NEXT VISIT ALERTS: *Restricted patient NURSING VISIT ALERT: Create and link episode [...] DIAGNOSIS: 33 y.o. Estimated Date of Delivery: 02/25/24 MATERNAL Hx of PE (2016 & 11/2022): thrombophilia testing - heterozygote prothrombin gene mutation 2016 - Was traveling back from [place] and attributed to prolonged immobilization 2022 - missed one week of lovenox d/t insurance Transitioned to lovenox from warfarin after dx CHTN Anxiety/Depression 2012 PTD at 31w6d, IUFD of unknown cause, ytogenetics 46,XY from placental pathology 2014 Term cHTN but did not require medication and was induced at 40 weeks. 2016 Term , 3 months PP developed PE 2022 Need to find delivery records- one month PP admission for PE BMI 39 Hx gastroparesis If mono/di twins add .MONODISCHEDULE If Diabetes Program patient add .DMPCOMM PREVIOUS ULTRASOUNDS: (PCP) ECHO: REFERRING PROVIDER/CLINIC: DARIO Vasquez [place] Primary provider approves scheduling of recommended ultrasounds/testing: [...] Non-[facility] labs need to be entered in [employer]? PERTINENT MEDS: PROCEDURES: IF FGR <10% or EFW <2000 grams: Add FGRPCOM PLAN OF CARE: Original and updated POC Diverticulitis of colon 06/09/2023 Abdominal pain, LLQ (left lower quadrant) 2023 Acute pulmonary embolism, un specified pulmonary embolism type, unspecified whether acute cor pulmonale present 11/30/2022 Anticoagulation monitoring, INR range 2-3 2022 Encounter for screening invo moshe social determinants of health (SDoH) 11/28/2022 Lactating mother 11/28/2022 Acute pulmonary embolism 11/27/2022 Gastroparesis 10/20/2022 Maternal morbid obesity in first trimester, ante 05/06/2022 Chronic hypertension affecting 02/01/2 023 Prior with demise 05/06/2022 Pap smear for cervical cancer screening 01/28/20 Overview: 12/2021 NIL/HPV Negative Plan: Pap and [...] embolus, right 04/09/2017 Overview: CT scan 04/07/17 [place] ER - repeat CT 04/20/17 negative for PE Positive prothrombin Hematology consult 05/2017 - coumadin for 6 months then off as felt to be provoked Nov 2022: Pulmonary embolism again. Migraine syndrome 03/24/2017 Morbid obesity with BMI of 40.0-44.9, adult 03/06 Polyp of colon Epigastric abdominal pain Gastritis Estimated Date of Delivery Comme nts Yes 02/25/2024 Based on Ultraso und Resolved Problems Problem Noted Date Diagnosed Date Resolved Date [facility] Supervision of high-risk 05/04/2022 07/15/2023 Overview: [facility] CONSULTATION ON 05/06/22 REASON FOR CONSULT: Hx IUFD, PE-risks/mgmt, testing/del recs TODAY'S APPOINTMENT: Consultation PRIMARY DIAGNOSIS: 32 y.o. Estimated Date [...] 7w1d REFERRING PHYSICIAN/PHONE/LAST UPDATE: Merline Barrera MD [place] [phone] Primary MD approves scheduling of recommended ultrasounds/testing: Yes SPECIALISTS/CONSULTS: Hematology Dr Cody Estes [facility] [phone] LV 06/01/17 Include: Specialty MD Clinic Name [...] 12/09/2021 Overview: 06/09/17 signed .Rosmery Villalobos DNP, PLASTIC FIXTURE BUILDER, POLYETHYLENE COMBINER/psychiatry Severe episode of recurrent major depressive disorder, without psychotic features 04/22/201710/2017 Anticoagulation monitoring, INR range 2-3 [Z79.01] 04/09/2017 12/27/2017 Depression with anxiety 03/24/2017 08/0 04/2017 Encounters Date Type Department Care Team Description 08/19/2023 Telephone [facility] [address] [facility] [address] [place] [address] Bryanna Olivas MD Late Cancel Appointment 08/14/2023 10:46 AM CDT - 08/14/2023 2:35 PM CDT Emergency [facility] [address] [place] [address] Silke Briggs MD Abdominal pain, unspecified abdominal location (Primary Dx); Thrombophilia (HC) Discharge Disposition: Home Self Care 08/14/2023 Travel 08/10/2023 Telephone [facility] [address] [place] [address] Merline Barrera MD 08/10/2023 Telephone [facility] [address] [facility] [address] [place] [address] [place] 08/10/2023 Telephone [facility] [address] [place] [address] Merline Barrera MD Medication Management 08/09/2023 9:00 AM CDT - 08/09/2023 11:59 PM CDT Hospital Encounter [facility] [address] [place] [address] Merline Barrera MD Supervision of high risk in first trimester (Primary Dx); High-risk in first trimester; Early stage of ; Acute pulmonary embolism, unspecified pulmonary embolism type, unspecified whether acute cor pulmonale present (HC); Anticoagulation monitoring, INR range 2-3; Chronic hypertension affecting ; Prior with demise; Other acute pulmonary embolism without acute cor pulmonale (HC) 08/09/2023 Telephone [facility] [address] [facility] [address] [place] [address] [place] 08/09/2023 Travel 08/05/2023 Refill [facility] [address] [place] [address] Merline Barrera MD Refill Request (Fluticasone (50 Mcg Per Actuation) Nasal) 08/02/2023 Telephone [facility] [address] [place] [address] Bryanna Olivas MD Appointment Reminder (Pre-Intake call for IP appt on 08/10 at 10:30) 07/30/2023 10:15 AM CDT - 07/30/2023 12:28 PM CDT Emergency [facility] [address] [place] [address] Shea Lyn MD Nausea and vomiting during (Primary Dx); Gastroesophageal reflux disease with esophagitis without hemorrhage Discharge Disposition: Home Self Care 07/30/2023 Telephone [facility] [address] [facility] [address] Merline Barrera MD 07/30/2023 Travel 07/29/[address] [address] Merline Barrera MD Need Meds; Refill Request 07/28/2023 Orders Only [facility] Scanner 1 scan: (1-Ord) [facility] PELVIS DATING, 07/28/2023 07/26/[address] [address] Merline Barrera MD Results 07/23/2023 1:00 PM CDT Ancillary Procedure [address] [address] 07/23/[address] [address] Merline Barrera MD Questions (RESULTS ) 07/23/2023 Travel 07/23/[address] [address] Merline Barrera MD Refill Request (Warfarin) 07/16/[address] [address] Merline Barrera MD Anticoagulation (Chart Update ) 07/14/2023 1:10 PM CDT Office Visit [address] [place] [address] Merline Barrera MD Medication Management; Concerns (Positive test) 07/14/2023 Travel 07/14/[address] [place] [address] Merline Barrera MD Refill Request (Potassium Chloride) 07/13/2023 Telephone [facility] [address] [place] [address] Merline Barrera MD Medication Management (potassium chloride , , metoclopramide ) 07/12/2023 8:00 PM CDT - 07/12/2023 10:30 PM CDT Emergency [facility] [address] [place] [address] Duane Boothe MD Nausea and vomiting, unspecified vomiting type (Primary Dx); , unspecified gestational age; Hypokalemia Discharge Disposition: Home Self Care 07/12/2023 Travel 07/08/2023 Telephone [facility] [address] [place] [address] Merline Barrera MD Anticoagulation (BPA- Lovenox) 07/08/2023 Telephone [facility] [address] [place] [address] Merline Barrera MD Anticoagulation (Chart update) 07/08/2023 Telephone [facility] [address] [place] [address] Merline Barrera MD Questions 07/08/2023 Refill [facility] [address] [place] [address] Merline Barrera MD Refill Request (Fluticasone (50 Mcg Per Actuation) Nasal) 07/04/2023 12:50 PM CDT - 07/04/2023 3:46 PM CDT Emergency [facility] [address] [place] [address] Bryanna Pena MD Chest pain, unspecified type (Primary Dx); Anxiety Discharge Disposition: Home Self Care 07/04/2023 Travel 06/30/2023 Telephone [facility] [address] [place] [address] Kulwinder Echeverria MD Results 06/23/2023 11:00 AM CDT - 06/23/2023 11:59 PM CDT Hospital Encounter [facility] [address] [place] [address] Kulwinder Echeverria MD Diverticulitis of colon 06/23/2023 Travel 06/22/2023 Telephone [facility] [address] [place] [address] Merline Barrera MD Questions 06/16/2023 12:46 PM CDT - 06/16/2023 11:59 PM CDT Hospital Encounter [facility] [address] [place] [address] Merline Barrera MD Liver lesion 06/16/2023 Travel 06/11/2023 11:00 AM [employer] TEAM MEMBER Office Visit [facility] [address] [place] [address] Kulwinder Echeverria MD Consult (abdominal pain for about 1 year. ) 06/11/2023 Travel 06/10/2023 Telephone [facility] [address] [place] [address] Merline Barrera MD Need Meds 06/10/2023 Telephone [facility] [address] [place] [address] Merline Barrera MD Results 06/09/2023 9:30 AM [employer] SERVICE TEAM MEMBER Ancillary Procedure [facility] [address] [place] [address] 06/09/2023 8:20 AM [employer] SERVICE TEAM MEMBER Office Visit [facility] [address] [place] [address] Merline Barrera MD Ear Problem (Right, 4 days); ER Follow up 06/09/2023 Anticoagulation (warfarin) [facility] [address] [place] [address] 1, [facility] Anticoagulation 06/09/2023 Telephone [facility] [address] [place] [address] Merline Barrera MD Results 06/09/2023 Travel from Last 3 Months Immunizations Name Administration Dates Next Due COVID-19 vaccine ([employer] 30mcg/0.3mL) 12YO+ BIVALENT PF, MDV 04/22/2022 Influenza, IIV4 12/14/2022, 2,01/28/2021,2019,12/25/2018,01/29/2017 Pneumococcal Conj 20-valent (Prevnar 20) 12/14/2022 Tdap 09/14/2022, 3,01/29/2017,2012 Family History Medical History Relation Name Comments Other Father dad was in alf and not present Anxiety disorder Maternal Aunt [...] Years Used Date Smoking Tobacco: Former Cigarettes 0.3 14 Smokeless Tobacco: Never Tobacco Cessation:Counseling Given: Not Answered Comments:1 cigarette a day Alcohol Use Standard [...] Housing in the Last Year 1 04/22/2022 Estimated Date of Delivery Comme nts Yes 02/25/2024 Based on Ultraso und Sex and Gender Information Value Date Recorded Sex Assigned at Not on file Gender Identity Not on file Sexual Orientation Not on file Obstetrics History Para Term AB IAB SAB Ectopic Multiple Livin g Live Births 5 4 3 1 3 4 Date Outcome GA Total Labor Labor/2nd/3rd Weight Sex Delivery Anes PTL Nicole A1 A5 Name Cl in 12/03 31w 6d 12h 00m/0h 01m/ 1.47 kg (3 lb 4 oz) M VAGINAL LACEY Epidu ral Dece ased 0 0 JUAN Romero Delivery Location:[facility] Comments:IUFD of uncer tain cause, induction 07/03 Term 40w 0d F Kelin ng Complications:Hypertension a ffecting Delivery Location:[facility] 01/27 Term 39w 1d 7h 04m 5h 27m/1h 26m/0h 11m 3.27 kg (7 lb 3.3 oz) M Vag-Spont Epidu ral N Kelin ng 8 9 MANISHA KWAKU Charles,BAB Y1 KAYLEIGH Dariusz Bates MD Delivery Location:[facility] 10/22 Term 37w 0d M VAGINAL LACEY Kelin ng Delivery Location[facility] Current Summary Episode Dates Number of Fetuses Estimated Date of Delivery 08/09/2023 - Present (08/28/2023) 02/25/2024 (set by Deisy Bañuelos, FAYE on 08/09/2023 based on Ultrasound on 07/23/2023) Dating Summary Based On [place] Diff Last Menstrual Period (LMP Unknown) Comment:Unknown Ultrasound on 07/23/2023 02/25/2024 Working GA:9w0d Vitals Pregravid Weight Height TWG (As of 08/28/2023) Pregrav id BMI 1.626 m (5' 4) Date GA Fund Present FHR Mvmt BP Weight Edema Alb Glu Ket Dil/ Eff/Sta 4 11w3d Inpatient data not displayed here. See encounter summary. 4 12w1d Inpatient data not displayed here. See encounter summary. Notes Progress Notes - Hospital En counter - 08/09/2023 - GA:11w3d 08/09/2023 - 11w3d - Deisy Bañuelos RN [place] [facility] Consultation Visit Patient here for consultation due to h/o of PP PE x 2, IUFD at 31w6d. Is currently @ 11w3d. Telephone journeyman plumber used throughout visit. Assessment Histories reviewed today include: Past Medical History, Past Surgical History, Social History and Family History and Obstetric History. Refer to the corresponding sections of the [facility] section of [facility] chart and the [facility] Navigator for details. Assessment: Patient's perception of movement: Has not felt movement yet. Normal movement discussed. heart rate observed during brief bedside ultrasound. Preferred delivery location: [facility] Education Some basic routine education done during assessment. See patient education section for details. Patient states that all her questions were answered. Scheduled to see Dr Odell today. After Visit Summary created, discussed and supplied to patient? Declined - Iranian Speaking. Medications must be prescribed by Dr. Barrera. Recommendations for Lovenox dosing sent by Dr. Odell. Maternal Loss Prevention Operations Manager will reach out to discuss with pt as well. Is referring provider within [facility]? yes Consult note forwarded: N/A Face to Face RN time: 45 min Deisy Bañuelos RN 08/09/2023 9:20 AM Last Filed Vital Signs Vital Sign Reading Time Taken Comments Blood Pressure 126/76 08/14/2023 1:30 PM CDT Pulse 76 08/14/2023 1:30 PM CDT Temperature 36.7 ??C (98 ??F) 08/14/2023 10:55 AM CDT Respiratory Rate 16 08/14/2023 10:55 AM CDT Oxygen Saturation 99% 08/14/2023 1:30 PM CDT Inhaled Oxygen Concentration - - Weight 107.5 kg (237 lb) 08/14/2023 10:55 AM CDT Height 162.6 cm (5' 4) 08/14/2023 10:55 AM CDT Body Mass Index 40.68 08/14/2023 10:55 AM CDT Plan of Treatment Upcoming Encounters Date Type Department Care Team (Late st Contact Info) Description 09/09/2023 8:30 AM CDT Office Visit [facility] [address] [place] [address] Bryanna Olivas MD [address] [place] [address] 10/12/2023 9:00 AM CDT Appointment [facility] [address] [place], [place] [address] Health Maintenance Due Date Last Done Comments Influenza for age 9-49 12/05/2023 , 12/10/2021, 01/28/2021, Additional history exists BMI (ht and wt on same day) for age 18+ 12/15/2023 12/14/2022, 12/01/2022, 11/12/2021, Additional history exists Depression screening for age 12+ 04/16/2024 04/16/2023, 04/16/2023, 04/15/2023, Additional history exists Pap test for age 21-65 12/10/2026 , 12/10/2021, 06/21/2020, Additional history exists Tetanus booster 09/14/2032 09/14/2022, 08/05, 01/29/2017, Additional history exists HIV for age 15-65 Completed 04/08/2022 Hepatitis C screening for age 18-79 Completed 04/08/2022, 10/02/2021 Tdap Completed 09/14/2022, 08/05, 01/29/2017, Additional history exists Pneumococcal series for age 6-64 Aged Out 12/14/2022 No longer eligible based on patient's age to complete this topic COVID-19 vaccine series Completed 07/28/19 24, 04/22/2022, 01/14/2021, Additional history exists Procedures Procedure Name Priority Date/Time Associated Diagnosis Comments US OB 1ST TRI SINGLE TA STAT 08/14/2023 1:06 PM CDT URINALYSIS MICROSCOPIC STAT 08/14/2023 11:29 AM CDT UA W/ SEDIMENT EXAM REFLEXED PER CRITERIA STAT 08/14/2023 11:29 AM CDT CBC WITH AUTO DIFFERENTIAL STAT 08/14/2023 11:21 AM CDT PROTIME-INR STAT 08/14/2023 11:21 AM CDT LACTATE VENOUS STAT 08/14/2023 11:21 AM CDT HEPATIC FUNCTION PANEL STAT 08/14/2023 11:21 AM CDT BASIC METABOLIC PANEL STAT 08/14/2023 11:21 AM CDT CBC WITH AUTO DIFFERENTIAL STAT 08/14/2023 11:21 AM CDT EKG 12 LEAD STAT 08/14/2023 10:57 AM CDT URINALYSIS MICROSCOPIC STAT 07/30/2023 11:39 AM CDT UA W/ SEDIMENT EXAM REFLEXED PER CRITERIA STAT 07/30/2023 11:39 AM CDT LIPASE STAT 07/30/2023 10:39 AM CDT TROPONIN T (HS) ACUTE W/2HR REFLEX STAT 07/30/2023 10:39 AM CDT BASIC METABOLIC PANEL STAT 07/30/2023 10:39 AM CDT EXTRA TUBE KEYES Today 07/30/2023 10:38 AM CDT EXTRA TUBE BLUE Today 07/30/2023 10:38 AM CDT EXTRA TUBE LIGHT GREEN Today 07/30/2023 10:38 AM CDT CBC WITH AUTO DIFFERENTIAL STAT 07/30/2023 10:38 AM CDT CBC WITH AUTO DIFFERENTIAL STAT 07/30/2023 10:38 AM CDT EKG 12 LEAD STAT 07/30/2023 10:20 AM CDT SCAN-ULTRASOUND REPORT 07/28/2023 12:00 AM CDT US OB 1ST TRI SINGLE TA Routine 07/23/2023 1:09 PM CDT Early stage of UA W/ SEDIMENT EXAM REFLEXED PER CRITERIA STAT 07/12/2023 10:02 PM CDT CBC WITH AUTO DIFFERENTIAL STAT 07/12/2023 8:46 PM CDT HCG BETA QUANT, STAT 07/12/2023 8:46 PM CDT TROPONIN T (HS) ACUTE W/2HR REFLEX STAT 07/12/2023 8:46 PM CDT BASIC METABOLIC PANEL STAT 07/12/2023 8:46 PM CDT CBC WITH AUTO DIFFERENTIAL STAT 07/12/2023 8:46 PM CDT EKG 12 LEAD STAT 07/12/2023 8:27 PM CDT TROPONIN T (HS) ONE TIME Timed 07/04/2023 3:07 PM CDT XR CHEST 1 VIEW PORTABLE STAT 07/04/2023 1:13 PM CDT CBC WITH AUTO DIFFERENTIAL [...] PELVIS W NATALIA 06/09/2023 1 0:25 AM [employer] SERVICE TEAM MEMBER Diverticulitis of colon Abdominal pain, LLQ (left lower quadrant) CBC WITH AUTO DIFFERENTIAL Routine 06/09/2023 9:39 AM SEAFOOD SERVICE TEAM MEMBER Diverticulitis of colon Abdominal pain, LLQ (left lower quadrant) COMP METABOLIC PANEL Routine 06/09/2023 9:39 AM SEAFOOD SERVICE TEAM MEMBER Diverticulitis of colon Abdominal pain, LLQ (left lower quadrant) CBC WITH AUTO DIFFERENTIAL Routine 06/09/2023 9:39 AM SEAFOOD SERVICE TEAM MEMBER Diverticulitis of colon Abdominal pain, LLQ (left lower quadrant) PROTIME-INR STAT 06/09/2023 9:39 AM SEAFOOD SERVICE TEAM MEMBER Acute pulmonary embolism, unspecified pulmonary embolism type, unspecified whether acute cor pulmonale present (HC) Anticoagulation monitoring, INR range 2-3 LC HIV-1/O/2, 4TH GENERATION Routine 04/08/2022 1:05 PM [employer] SERVICE TEAM MEMBER Supervision of high risk in first trimester LC HCV ANTIBODY RFX TO QUANT PCR Routine 04/08/2022 1:05 PM SE[employer] SERVICE TEAM MEMBER Supervision of high risk in first trimester HPV THIN PREP Routine 12/10/2021 4:35 PM CDT Pap smear for cervical cancer screening from Last 3 Months or Most Recently Relevant to Health Maintenance Results * US OB 1ST TRI SINGLE TA (08/14/2023 1:06 PM CDT) Only the most recent of2 resultswithin the time period is included. Anatomical Region Laterality Modality , 1ST TRIMESTER Ultrasound 08/14/2023 1:21 PM CDT Impressions 08/14/2023 1:21 PM CDT Intrauterine gestation with a crown-rump length corresponding to an estimated gestational age of 12 weeks and 0 days. No complication seen. Dictated by Sophie Guzman MD @ 08/14/2023 1:21:28 PM (Electronically Signed) Narrative 08/14/2023 1:21 PM CDT For Patients: ??As a result of the Cures Act, medical imaging exams and procedure reports are released immediately into your electronic medical record. ??You may view this report before your referring provider. ??If you have questions, please contact your health care provider. INDICATION: Pain COMPARISON: 07/23/2023 TECHNIQUE: Grayscale, color Doppler ultrasound of the gravid uterus, fetus, and ovaries from a transabdominal approach. Additional limited 4 quadrant grayscale imaging of the abdomen is performed to assess for ascites. FINDINGS: Provided gestational age: 12 weeks 1 day Normal uterine size and position. There is an intrauterine gestation. An embryo is present with a crown-rump length of 5.2 centimeters which corresponds to an estimated gestational age of 12 weeks and 0 days. Cardiac activity is present at a rate of 160 beats per minute. No perigestational hemorrhage. The left ovary measures 3.6 x 2.6 x 2.0 centimeters. Very small simple cyst. Normal color Doppler flow. The right ovary can not be seen. No pelvic free fluid. No ascites seen. Procedure Note Sophie Guzman MD - 08/14/2023 For Patients: As a result of the Cures Act, medical imagingexams and procedure reports are released immediately into your electronicmedical record. You may view this report before your referring provider.If you have questions, please contact your health care provider. INDICATION: Pain COMPARISON: 07/23/2023 TECHNIQUE: Grayscale, color Doppler ultrasound of the gravid uterus, fetus, andovaries from a transabdominal approach. Additional limited 4 quadrantgrayscale imaging of the abdomen is performed to assess for ascites. FINDINGS: Provided gestational age: 12 weeks 1 day Normal uterine size and position. There is an intrauterine gestation. Anembryo is present with a crown-rump length of 5.2 centimeters whichcorresponds to an estimated gestational age of 12 weeks and 0 days.Cardiac activity is present at a rate of 160 beats per minute. Noperigestational hemorrhage. The left ovary measures 3.6 x 2.6 x 2.0 centimeters. Very small simplecyst. Normal color Doppler flow. The right ovary can not be seen. Nopelvic free fluid. No ascites seen. IMPRESSION: Intrauterine gestation with a crown-rump length corresponding to anestimated gestational age of 12 weeks and 0 days. No complication seen. Dictated by Sophie Guzman MD @ 08/14/2023 1:21:28 PM (Electronically Signed) Silke Briggs MD US * URINALYSIS MICROSCOPIC (08/14/2023 11:29 AM CDT) Only the most recent of2 resultswithin the time period is included. RBC None Seen 0-2, None Seen /HPF 08/14/2023 11:37 AM CDT [facility] WBC 0-2 0-2, 3-5, None Seen /HPF 08/14/2023 11:37 AM [facility] BACTERIA Few None Seen, Rare, Few Bacteria/ HPF 08/14/2023 11:37 AM T [facility] EPITHELIAL CELLS Few None Seen, Few Epi/HPF 08/14/2023 11:37 AM T [facility] Mucus Present 08/14/2023 11:37 AM [facility] Urine URINE SPECIMEN / Unknown Non-Blood / Unknown 08/14/2023 11:29 AM CDT 08/14/2023 11:33 AM CDT Silke Briggs MD URINE [facility] [address] [place] [address] * (ABNORMAL) URINALYSIS W REFLEX MICROSCOPIC IF POSITIVE (08/14/2023 11:29 AM T) Only the most recent of3 resultswithin the time period is included. COLOR Yellow Yellow Color 08/14/2023 11:36 AM [facility] CLARITY Slightly Cloudy(A) Clear Clarity 08/14/2023 11:36 AM [facility] SPECIFIC GRAVITY,URINE >=1.030(A) 1.010, 1.015, 1.020, 1.025 08/14/2023 11:36 AM [facility] PH,URINE 5.5 6.0, 7.0, 8.0, 5.5, 6.5, 7.5, 8.5 08/14/2023 11:36 AM [facility] UROBILINOGEN, QUALITATIVE Normal Normal EU/dl 08/14/2023 11:36 AM [facility] PROTEIN, URINE Negative Negative mg/dL 08/14/2023 11:36 AM [facility] GLUCOSE, URINE Negative Negative mg/dL 08/14/2023 11:36 AM [facility] KETONES,URINE Trace(A) Negative mg/dL 08/14/2023 11:36 AM [facility] BILIRUBIN,URI NE Negative Negative 08/14/2023 11:36 AM [facility] OCCULT BLOOD,URINE Negative Negative 08/14/2023 11:36 AM [facility] NITRITE Negative Negative 08/14/2023 11:36 AM [facility] LEUKOCYTE ESTERASE Negative Negative 08/14/2023 11:36 AM [facility] Urine URINE SPECIMEN / Unknown Non-Blood / Unknown 08/14/2023 11:29 AM CDT 08/14/2023 11:33 AM T Silke Briggs MD URINE [facility] [address] [facility] [place] [address] * CBC WITH AUTO DIFFERENTIAL (08/14/2023 11:21 AM [facility]) Only the most recent of5 resultswithin the time period is included. WHITE BLOOD COUNT 9.0 4.5 - 11.0 thou/cu mm 08/14/2023 11:28 AM [facility] RED BLOOD COUNT 4.49 4.00 - 5.20 mil/cu mm 08/14/2023 11:28 AM [facility] HEMOGLOBIN 13.4 12.0 - 16.0 g/dL 08/14/2023 11:28 AM [facility] HEMATOCRIT 39.6 33.0 - 51.0 % 08/14/2023 11:28 AM [facility] MCV 88 80 - 100 fL 08/14/2023 11:28 AM [facility] MCH 29.8 26.0 - 34.0 pg 08/14/2023 11:28 AM [facility] MCHC 33.8 32.0 - 36.0 g/dL 08/14/2023 11:28 AM [facility] RDW 14.1 11.5 - 15.5 % 08/14/2023 11:28 AM [facility] PLATELET COUNT 294 140 - 440 thou/cu mm 08/14/2023 11:28 AM [facility] MPV 9.2 6.5 - 11.0 fL 08/14/2023 11:28 AM [facility] % NEUT 59.5 % 08/14/2023 11:28 AM [facility] % LYMPH 32.3 % 08/14/2023 11:28 AM [facility] % MONO 6.9 % 08/14/2023 11:28 AM [facility] % EOS 1.2 % 08/14/2023 11:28 AM [facility] % BASO 0.1 % 08/14/2023 11:28 AM T [facility] ABSOLUTE NEUTROPHILS 5.4 1.7 - 7.0 thou/cu mm 08/14/2023 11:28 AM T [facility] ABSOLUTE LYMPHOCYTES 2.9 0.9 - 2.9 thou/cu mm 08/14/2023 11:28 AM T [facility] ABSOLUTE MONOCYTES 0.6 <0.9 thou/cu mm 08/14/2023 11:28 AM T [facility] ABSOLUTE EOSINOPHILS 0.1 <0.5 thou/cu mm 08/14/2023 11:28 AM T [facility] ABSOLUTE BASOPHILS 0.0 <0.3 thou/cu mm 08/14/2023 11:28 AM T [facility] Blood BLOOD SPECIMEN / Unknown Venipuncture / Unknown 08/14/2023 11:21 AM CDT 08/14/2023 11:25 AM CDT Silke Briggs MD HEMATOLOGY [facility] [address] [place], [place] [id number] * LACTATE VENOUS (08/14/2023 11:21 AM CDT) [facility] LACTATE,VENOUS 0.6 0.5 - 2.0 mmol/L 08/14/2023 11:54 AM CDT [facility] Blood BLOOD SPECIMEN / Unknown Venipuncture / Unknown 08/14/2023 11:21 AM CDT 08/14/2023 11:25 AM CDT Silke Briggs MD CHEMISTRY [facility] [address] [place] [address] * PROTIME-INR (08/14/2023 11:21 AM CDT) Only the most recent of3 resultswithin the time period is included. [facility] INR 1.1 <1.3 08/14/2023 11:31 AM [facility] PROTIME 12.2 10.3 - 12.3 sec 08/14/2023 11:31 AM [facility] Blood BLOOD SPECIMEN / Unknown Venipuncture / Unknown 08/14/2023 11:21 AM CDT 08/14/2023 11:25 AM T [facility] - 08/14/2023 11:31 AM CDT ?Therapeutic Range 2.0-3.0 for most anticoagulated [...] seconds if the patient is on UFH. Silke Briggs MD HEMATOLOGY [facility] [address] [place] [address] * (ABNORMAL) HEPATIC FUNCTION PANEL (08/14/2023 11:21 AM T) ALBUMIN 4.0 4.0 - 4.9 g/dL 08/14/2023 11:54 AM [facility] PROTEIN,TOTAL 6.9 6.0 - 8.0 g/dL 08/14/2023 11:54 AM [facility] BILIRUBIN,TOTAL 0.3 0.0 - 1.2 mg/dL 08/14/2023 11:54 AM [facility] BILIRUBIN,DIRECT <0.2 0.0 - 0.3 mg/dL 08/14/2023 11:54 AM [facility] BILIRUBIN,INDIRE CT 08/14/2023 11:54 AM [facility] Comment:Unable to calculate, Direct Bili <0.2 ALK PHOSPHATASE 59 35 - 104 IU/L 08/14/2023 11:54 AM [facility] ALT (SGPT) 9(L) 10 - 35 IU/L 08/14/2023 11:54 AM [facility] AST (SGOT) 15 10 - 35 IU/L 08/14/2023 11:54 AM [facility] Blood BLOOD SPECIMEN / Unknown Venipuncture / Unknown 08/14/2023 11:21 AM CDT 08/14/2023 11:25 AM CDT Silke Briggs MD CHEMISTRY [facility] [address] [place] [address] * (ABNORMAL) BASIC METABOLIC PANEL (08/14/2023 11:21 AM [facility]) Only the most recent of3 resultswithin the time period is included. SODIUM 138 136 - 145 mmol/L 08/14/2023 11:54 AM [facility] POTASSIUM 3.3(L) 3.5 - 5.1 mmol/L 08/14/2023 11:54 AM [facility] CHLORIDE 104 98 - 107 mmol/L 08/14/2023 11:54 AM [facility] CO2,TOTAL 25 22 - 29 mmol/L 08/14/2023 11:54 AM [facility] ANION GAP 9 5 - 18 08/14/2023 11:54 AM [facility] GLUCOSE 100(H) 70 - 99 mg/dL 08/14/2023 11:54 AM [facility] CALCIUM 9.1 8.6 - 10.0 mg/dL 08/14/2023 11:54 AM [facility] BUN 6 6 - 20 mg/dL 08/14/2023 11:54 AM [facility] CREATININE 0.50 0.50 - 0.90 mg/dL 08/14/2023 11:54 AM [facility] BUN/CREAT RATIO 12 10 - 20 11:54 AM [facility] eGFR >90 >90 mL/min/1.7 3m2 08/14/2023 11:54 AM CDT [facility] Comment:As of 2021, eG FR is calculated by the CKD-EPI creatinine equation without race adjustment. ??eGFR can be influenced by muscle mass, exercise, and diet. ??The reported eGFR is an estimation only and is only applicable if the renal function is stable. Blood BLOOD SPECIMEN / Unknown Venipuncture / Unknown 08/14/2023 11:21 AM CDT 08/14/2023 11:25 AM CDT Silke Briggs MD CHEMISTRY [facility] [address] [place] [address] * EKG 12 LEAD (08/14/2023 10:57 AM CDT) Only the most recent of4 resultswithin the time period is included. [facility] Interpretation Normal sinus rhythm Possible Left atrial enlargement Left ventricular hypertrophy Abnormal ECG When compared with ECG of 30-JUL-2023 10:20, No significant change was found BEYOND NOW Ventricular Rate 85 BPM BEYOND NOW Atrial Rate 85 BPM BEYOND NOW P-R Interval 194 ms BEYOND NOW QRS Duration 82 ms BEYOND NOW QT 400 ms BEYOND NOW QTc 476 ms BEYOND NOW P [place] 52 degrees BEYOND NOW R [place] -11 degrees BEYOND NOW T [place] 11 degrees BEYOND NOW 08/14/2023 10:5 7 AM CDT 08/14/2023 1:29 PM CDT Silke Briggs MD EKG ORD BEYOND NOW [place], [place] * TROPONIN T (HS) ACUTE W/2HR REFLEX (07/30/2023 10:39 AM CDT) Only the most recent of3 resultswithin the time period is included. [facility] TROPONIN T HS <6 6-10 ng/L ng/L 07/30/2023 11:05 AM CDT [facility] Blood BLOOD SPECIMEN / Unknown Venipuncture / Unknown 07/30/2023 10:39 AM CDT 07/30/2023 10:42 AM CDT [facility] - 07/30/2023 11:05 AM CDT hs-cTnT (Elecsys Troponin T Gen 5) [...] low risk in emergency department patient population. Shea Lyn MD CHEMISTRY [facility] [address] [place] [address] * LIPASE (07/30/2023 10:39 AM CDT) Only the most recent of2 resultswithin the time period is included. LIPASE 18.3 13.0 - 60.0 IU/L 07/30/2023 11:05 AM CDT [facility] Blood BLOOD SPECIMEN / Unknown Venipuncture / Unknown 07/30/2023 10:39 AM CDT 07/30/2023 10:42 AM CDT Shea Lyn MD CHEMISTRY Performing Organization Address City/[facility] Co de Phone Number [facility] [address] [place] [address] * EXTRA TUBE LIGHT GREEN (07/30/2023 10:38 AM CDT) Blood BLOOD SPECIMEN / Unknown Extra Tube / Unknown 07/30/2023 10:38 AM CDT 07/30/2023 10:43 AM CDT Doctor Unknown LABORATORY Performing Organization Address [facility] de Phone Number [facility] [address] [place] [address] * EXTRA TUBE KEYES (07/30/2023 10:38 AM CDT) Blood BLOOD SPECIMEN / Unknown Extra Tube / Unknown 07/30/2023 10:38 AM CDT 07/30/2023 10:43 AM CDT Doctor Unknown LABORATORY Performing Organization Address [facility] Co de Phone Number [facility] [address] [place] [id number] * EXTRA TUBE BLUE (07/30/2023 10:38 AM CDT) Blood BLOOD SPECIMEN / Unknown Extra Tube / Unknown 07/30/2023 10:38 AM CDT 07/30/2023 10:43 AM CDT Doctor Unknown LABORATORY Performing Organization Address [facility] Co de Phone Number [facility] [address] [place] [address] * SCAN-ULTRASOUND REPORT (07/28/2023 12:00 AM CDT) Anatomical Region Laterality Modality Other Scanner OTHER * HCG BETA QUANT, (07/12/2023 8:46 PM CDT) [facility] HCG BETA QUANT,PREGNANC Y 21,572 mIU/mL 07/12/2023 10:03 PM CDT [facility] Blood BLOOD SPECIMEN / Unknown Venipuncture / Unknown 07/12/2023 8:46 PM CDT 07/12/2023 9:02 PM CDT Narrative [facility] - 07/12/2023 10:03 PM CDT Expected [...] prior to retesting. Duane Boothe MD CHEMISTRY [facility] [address] [place] [address] * TROPONIN T (HS) ONE TIME (07/04/2023 3:07 PM CDT) [facility] TROPONIN T HS <6 6-10 ng/L ng/L 07/04/2023 3:30 PM CDT [facility] Blood BLOOD SPECIMEN / Unknown Venipuncture / Unknown 07/04/2023 3:07 PM CDT 07/04/2023 3:09 PM CDT Bryanna Pena MD CHEMISTRY [facility] [address] [place] [address] * XR CHEST 1 VIEW PORTABLE (07/04/2023 [...] Bryanna Pena MD GENERAL IMAGING * (ABNORMAL) COMP METABOLIC PANEL (07/04/2023 1:08 PM CDT) Only the most recent of2 resultswithin the time period is included. SODIUM 138 136 - 145 mmol/L 07/04/2023 1:35 PM [facility] POTASSIUM 2.9(L) 3.5 - 5.1 mmol/L 07/04/2023 1:35 PM [facility] CHLORIDE 104 98 - 107 mmol/L 07/04/2023 1:35 PM [facility] CO2,TOTAL 26 22 - 29 mmol/L 07/04/2023 1:35 PM [facility] ANION GAP 8 5 - 18 07/04/2023 1:35 PM [facility] GLUCOSE 124(H) 70 - 99 mg/dL 07/04/2023 1:35 PM [facility] CALCIUM 8.8 8.6 - 10.0 mg/dL 07/04/2023 1:35 PM [facility] BUN 7 6 - 20 mg/dL 07/04/2023 1:35 PM [facility] CREATININE 0.61 0.50 - 0.90 mg/dL 07/04/2023 1:35 PM [facility] BUN/CREAT RATIO 11 10 - 20 4 1:35 PM [facility] eGFR >90 >90 mL/min/1.7 3m2 07/04/2023 1:35 PM [facility] Comment:As of 2021, eG FR is calculated by the CKD-EPI creatinine equation without race adjustment. ??eGFR can be influenced by muscle mass, exercise, and diet. ??The reported eGFR is an estimation only and is only applicable if the renal function is stable. ALBUMIN 3.9(L) 4.0 - 4.9 g/dL 07/04/2023 1:35 PM [facility] PROTEIN,TOTAL 6.9 6.0 - 8.0 g/dL 07/04/2023 1:35 PM CDT [facility] BILIRUBIN,TOTAL 0.4 0.0 - 1.2 mg/dL 07/04/2023 1:35 PM CDT [facility] ALK PHOSPHATASE 70 35 - 104 IU/L 07/04/2023 1:35 PM CDT [facility] ALT (SGPT) <5(L) 10 - 35 IU/L 07/04/2023 1:35 PM CDT [facility] AST (SGOT) 12 10 - 35 IU/L 07/04/2023 1:35 PM CDT [facility] Blood BLOOD SPECIMEN / Unknown Venipuncture / Unknown 07/04/2023 1:08 PM CDT 07/04/2023 1:10 PM CDT Bryanna Pena MD CHEMISTRY [facility] [address] [place] [address] * XR COLON (06/23/2023 11:51 AM CDT) [...] @ Jun 17 2023 10:46AM (Electronically Signed) [email or web address] Narrative 06/17/2023 10:46 AM CDT For Patients: [...] hemangioma segment 7 of the liver; stable [id number]. No focal hepatic or splenic pathology. A [...] @ Jun 17 2023 10:46AM (Electronically Signed) [email or web address] Merline Barrera MD MR * CT ABDOMEN PELVIS W (06/09/2023 10:25 AM [employer]) Anatomical Region Laterality Modality Abdomen, Pelvis, AORTA, LIVER, SPLEEN Computed Tomography 06/09/2023 10:5 8 AM [employer] Impressions 06/09/2023 10:58 AM [employer] 1. Colonic diverticulosis without diverticulitis. 2. There [...] AM (Electronically Signed) Narrative 06/09/2023 10:58 AM [employer] For Patients: ??As a result of the [...] (Electronically Signed) Merline Barrera MD CT * LC HCV ANTIBODY RFX TO QUANT PCR (04/08/2022 1:05 PM [employer]) HCV Ab <0.1 0.0 - 0.9 s/co ratio 04/10/2022 4:08 PM [employer] [facility] ([facility]) Blood BLOOD SPECIMEN / Unknown Venipuncture / Unknown 04/08/2022 1:05 PM [employer] 04/08/2022 1:08 PM [employer] Narrative [facility] - 04/10/2022 4:08 PM [employer]BER Performed at: ??[address] ??[id number] [employer]: Zafar Lama MD, Phone: ??[phone] Merline Barrera MD LABORATORY [facility] ([facility]) [facility] [place] [address], * LC HIV-1/O/2, 4TH GENERATION (04/08/2022 1:05 PM [employer]) HIV Scr 4th Gen Non Reactive Non Reactive 04/10/2022 9:09 AM [employer] [facility] ([facility]) Comment: HIV Negative HIV-1/HIV-2 antibodies and HIV-1 p24 antigen were NOT detected. There is no laboratory evidence of HIV infection. Blood BLOOD SPECIMEN / Unknown Venipuncture / Unknown 04/08/2022 1:05 PM [employer] 04/08/2022 1:08 PM [employer] Narrative [facility] ([facility]) - 04/10/2022 9:09 AM [employer] Performed at: ??[address] [place] [address] ??[id number] [employer]: Zafar Lama MD, Phone: ??[phone] Merline Barrera MD LABORATORY Performing Organization Address City/[facility]/ZIP Co de Phone Number [facility] ([facility]) [address] [place] [address] * HPV HIGH RISK (12/10/2021 4:35 PM CDT) Pathologist [facility] TYPE 16 Negative Negative 12/15/2021 5:37 PM CDT [facility] LABORATORY TYPE 18 Negative Negative 12/15/2021 5:37 PM CDT [facility] TRAL LABORATORY OTHER HIGH RISK TYPES Negative Negative 12/15/2021 5:37 PM CDT [facility] Other (Cervical) Non-Blood / Unknown 12/10/2021 4:35 PM CDT 12/11/2021 4:11 PM CDT [facility]ative [facility] - 12/15/2021 5:37 PM CDT HPV types 16, 18, 31, 33, 35, 39, 45, 51, 52, 56, 58, 59, 66 and 68 DNA were undetectable or below the pre-set threshold. Methodology: Jewels Irma 4800 HPV Test Merline Barrera MD MICROBIOLOGY [facility]-CEN[facility]AL LABORATORY [address] [place] [address], [place] from Last 3 Months or Most [...] Comments Code Status Discussion: Discussed Care Teams Package Sealer Relationship Specialty Start Date End Date Merline Barrera MD [address] [place] [id number] PCP - General Family Practice 04/16/17 Sarwat Miles MD [address] [place] [address] Consulting Physician Surgery - General 06/09/19 Lamar Mayer RN [address] [place] [address] Registered Nurse Registered Nurse 06/09/[address] [facility] [address] [place] [address] Registered Dietitian Medical Laboratory Assistant 06/09/19 Merline Barrera MD [address] [place] [address] Referring Provider Family Practice 07/15/23
[2023-08-28 17:31] LABS: HCO3 VBG 27 mmol/L (21-28); Lactate* 0.8 mmol/L (0.5-1.9); PCO2 VBG 46 mmHG (40-50); PO2 VBG < 30.1 mmHG (25-47); pH VBG 7.369 (7.32-7.43)
[2023-08-28 17:33] LABS: Basophils Percent Auto 0.2 % (0.0-3.0); Eosinophils Percent Auto 0.9 % (0.0-7.0); Hematocrit 36.4 % (33.0-51.0); Hemoglobin* 12.5 gm/dL (12.0-16.0); Immature Granulocytes Pct Auto 0.2 %; Lymphocytes Percent Auto 29.8 % (20-44); Mean Corpuscular HGB Conc 34 gm/dL (32-36); Mean Corpuscular Hemoglobin 30 pg (26-34); Mean Corpuscular Volume 88 fL (80-100); Monocytes Percent Auto 4.6 % (0.0-11.0); Neutrophils Percent Auto 64.3 % (42.0-72.0); Platelet Count* 278 K/uL (140-440); RDW Coefficient of Variation % 13.3 % (11.5-15.5); Red Blood Count 4.13 m/uL (4.00-5.20); White Blood Count* 12.29 K/uL (4.50-11.00)
[2023-08-28 17:35] LABS: Slide Review Reflex No
[2023-08-28 17:46] LABS: Appearance Urine Clear (Clear); Bilirubin Urine Negative (Negative); Blood Urine Negative (Negative); Color Urine Yellow (Yellow); Glucose Urine Negative (Negative); Ketones Urine Negative (Negative); Leukocyte Esterase Urine Negative (Negative); Nitrite Urine Negative (Negative); Protein Urine Negative (Negative); Specific Gravity Urine >= 1.030 (1.000-1.030)
[2023-08-28 17:49] LABS: Chloride* 105 mmol/L (96-114); Sodium* 137 mmol/L (135-149)
[2023-08-28 17:50] LABS: Potassium* 3.3 mmol/L (3.6-5.1)
[2023-08-28 17:52] LABS: Anion Gap 6 mEq/L (7-15); Aspartate Amino Transferase* 14 U/L (12-35); Bilirubin Direct* 0.3 mg/dL (0.0-0.5); Bilirubin Total* 0.5 mg/dL (0.1-1.5); Blood Urea Nitrogen* 9 mg/dL (5-24); Carbon Dioxide* 26 mmol/L (20-32); Creatinine* 0.5 mg/dL (0.5-1.5); Est. Creatinine Clearance* 135.61; Estimated Glomerular Filt Rate 125 ml/min; Total Protein* 7.3 g/dL (6.0-8.3)
[2023-08-28 17:53] LABS: Alanine Aminotransferase* 13 U/L (4-35); Alkaline Phosphatase* 54 U/L (40-150); Calcium* 8.6 mg/dL (8.4-10.6); Glucose* 68 mg/dL (60-115); Lipase* 51 U/L (23-300)
[2023-08-28 17:55] LABS: Mucus Urine Moderate; RBC Urine 0-2 (0-2); Squamous Epithelial Cell Urine Few (None-Few); WBC Urine 0-2 (0-5)
[2023-08-28 18:05] LABS: NT Pro B Type NatriureticPept* 119 pg/mL; Troponin I* < 0.01 ng/mL (0.01-0.04)
[2023-08-28] MEDS: ACETAMINOPHEN 500 MG TABLET 1000 MG PO (19:26)
== END 2023-08-28 20:20 | disposition home or self-care (01) ==
PROVIDERS: Emergency Provider Family Medicine; PCP Family Medicine
DX: R10.9 Unspecified abdominal pain (principal); Z3A.14 14 weeks gestation of pregnancy; R07.9 Chest pain, unspecified
CPT/HCPCS: 36415; 71275; 76705; 76815; 80053; 81001; 82248; 82803; 83605; 83690; 83880; 84484; 85025; 93005; 93976; 94761; 99285; A9270; Q9967

== ENCOUNTER 2023-11-12 20:57 | Outpatient (CLI) | payer MEDICAID, SELFPAY ==
[2023-11-12] VITALS (11 sets, daily range): BP systolic 118; BP diastolic 76; PULSE 86–96; RESP 16; TEMP 36.8; O2SAT 97–99
--- OUTSIDE RECORDS SUMMARY | 2023-11-12 20:59 | XMS_ITS | Clinical Summary ---
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 on 08/09/2023 based on Ultrasound on 07/23/2023) Dating Summary Based On CARMEN [place] Diff Last Menstrual Period (LMP Unknown) Comment:Unknown Ultrasound on 07/23/2023 02/25/2024 Working GA:9w0d Overview and Plan :Byrne sex:Female Delivery Plans Planned delivery method:Vaginal Vitals Pregravid Weight Height TWG (As of 11/12/2023) Pregrav id BMI 1.626 m (5' 4) Date GA Fund Present FHR Mvmt BP Weight Edema Alb Glu Ket Dil/ Eff/Sta 4 11w3d Inpatient data not displayed here. See encounter summary. 4 12w1d Inpatient data not displayed here. See encounter summary. 4 20w3d Inpatient data not displayed here. See encounter summary. 4 20w4d Inpatient data not displayed here. See encounter summary. 4 22w0d Inpatient data not displayed here. See encounter summary. 4 23w3d Inpatient data not displayed here. See encounter summary. 4 24w6d Inpatient data not displayed here. See encounter summary. Notes Progress Notes - Hospital En counter - 11/11/2023 - GA:24w6d 11/11/2023 - 24w6d - Wood Jimenez MD MPP/ US OB FOLLOW UP PER FETUS (53359.0) +Umbilical artery doppler (53208.00) 24w6d Estimated Date of Delivery: 02/25/24 33 y.o. [id number] Your patient had an ultrasound with [facility] on 11/11/23 . The report is ready and can be found in the Results review section of the [facility]. The Impression from the report is below. Problem list updated Patient Active Problem List Diagnosis Code Obesity complicating in second trimester O99.212 Pulmonary embolus, right (HC) I26.99 Prothrombin gene mutation (HC) D68.52 Cannabis use disorder, moderate, dependence (HC) F12.20 IPMN (intraductal papillary mucinous neoplasm) D49.0 Pap smear for cervical cancer screening Z12.4 Preexisting hypertension complicating , antepartum, second trimester O10.912 Prior with demise O09.299 [facility] Supervision of high-risk O09.90 Maternal obesity, antepartum, second trimester O99.212 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, antepartum O43.112 Pulmonary embolism on long-term anticoagulation therapy (HC) I26.99, Z79.01 History of delivery, currently in second trimester O09.892 growth restriction, 500-749 grams P05.9 US OB FOLLOW UP PER FETUS (28377.0) +Umbilical artery doppler (40709.00) Referred By: KAJAL BARRERA MD INDICATION: Indications Code 24 weeks gestation of Z3A.24 Maternal Obesity - BMI >35 (39) CHTN - no meds Hx IUFD at 31w6d Hx of PE x2 MPP consult Dr. Odell 08/09/23 Meds - Lovenox Therapeutic weight based dosing (100 milligrams subcutaneous 2x daily (goal trough LMW level 0.6-1.0 IU/mL)Prothrombin gen Declined serum screening Prothrombin gene mutation (heterozygous) 10/12/23 [facility] level II : EFW 328 grams (23%/AC 40% cranial indices BPD 08%/HC < 03%) Normal anatomy/partial circumvallate placenta at superior edge/lakes 11/11/23 [facility] f/u growth: EFW 624 grams (08%/AC 13%/Cranial indices BPD HC both < 03%/Normal DVP and normal UAR/HC just above-2SD IMPRESSION: Intrauterine at 24w 6d. presentation is Transverse, head to maternal right. EFW 624 grams, percentile: 8. AC 13% Growth parameters and estimated weight are consistent with growth restriction: Cranial indices BPD HC both < 03%/Normal DVP and normal UAR/HC just above-2SD Deepest Vertical Pocket of amniotic fluid: 4.16 cm. No major structural anomalies identified. The umbilical artery Dopplers were normal. Placental location: Posterior. There is no evidence of placenta previa. The transabdominal cervical length is not seen. RECOMMENDATIONS: -Return to primary provider for continued care. -Weekly BPPs+Weekly umbilical artery Dopplers to start at 28 weeks and scheduled with [facility] today. -Repeat growth ultrasound in 3 weeks scheduled with [facility] today. -The patient has scheduled future ultrasounds with [facility]. -When FGR is mild (EFW > 03% but < 10% and normal DVP and normal UAR as is present today), we recommend repeat growth ultrasound in 3-4 weeks, BPPs and Dopplers weekly (starting at 28 weeks), and delivery at 38 0/7 to 39 0/7 weeks' with a goal of 39 weeks (INDICATIONS FOR DELIVERY WILL LIKELY BE 38 WEEKS GIVEN Therapeutic LMWH needing to be discontinued 24 hours prior to planned delivery). - If at any time the Dopplers or amniotic fluid become abnormal, surveillance will be adjusted accordingly. If absent or reversed end diastolic flow in the umbilical artery were to occur, inpatient hospitalization for betamethasone and increased surveillance will be recommended. delivery may be indicated. COMMENT: The patient was seen by the Perinatologist today. The previous ultrasound and the records were reviewed. The results of today's ultrasound were communicated to the patient and communication facilitated with anthropology and archeology instructor on phone. Possible etiologies for FGR include aneuploidy, genetic syndromes, infection, maternal medical conditions (ie. HTN), placental insufficiency, and constitutional patterns of growth differences. We did not identify any structural abnormalities on ultrasound today or other findings consistent with aneuploidy or infection (although this does not rule out these possible causes). We reviewed the normal amniotic fluid and umbilical artery Doppler studies. Given the growth indices today, close maternal/ surveillance is recommended. The established guidelines in our practice for management of uncomplicated FGR include: -When FGR is mild (EFW > 03% but < 10% and normal DVP and normal UAR as is present today), we recommend repeat growth ultrasound in 3-4 weeks, BPPs and Dopplers weekly (starting at 28 weeks), and delivery at 38 0/7 to 39 0/7 weeks' with a goal of 39 weeks (INDICATIONS FOR DELIVERY WILL LIKELY BE 38 WEEKS GIVEN Therapeutic LMWH needing to be discontinued 24 hours prior to planned delivery). - If at any time the Dopplers or amniotic fluid become abnormal, surveillance will be adjusted accordingly. If absent or reversed end diastolic flow in the umbilical artery were to occur, inpatient hospitalization for betamethasone and increased surveillance will be recommended. delivery may be indicated. There are risks, benefits and limitations to maternal serum screening, ultrasound, and genetic amniocentesis. New government regulations related to the [employer] C[employer] act require that this note be released to the patient immediately, sometimes before the referring provider has been contacted. A portion of the information was presented verbally to the patient. The remainder is submitted as background for the referring provider, to be discussed as needed. SUMMARY OF RECOMMENDATIONS Dr. Odell (08/09/23) # History of PE x2 with prothrombin gene mutation heterozygosity: Has had PE associated with in both 2017 and most recently in 2022. Has been appropriately anticoagulated on Coumadin since her last PE and now on LMWH due to . APLAS testing is negative. Due to personal VTE x2 and thrombophilia, adjusted dose (therapeutic) anticoagulation is recommended in , which we reviewed in detail today. Due to therapeutic anticoagulation, there is a higher risk of not being eligible for regional anesthesia at the time of delivery (if she has an unscheduled need for delivery and has been on her high dose LMWH). We reviewed the need to adjust her dose throughout depending on gestational weight gain. # Chronic HTN: The cardiovascular changes associated with include a decrease in blood pressure during the midtrimester with increase back to baseline in the third trimester. This decline in blood pressure does not always occur in women with chronic hypertension. While historically tight blood pressure control has been avoided during , recent studies including the CHAP trial ([facility] 2021) have shown improved maternal and outcomes with improved hypertension control. I recommend blood pressure goals of <140mmHg systolic and <90mmHg diastolic. We generally recommend home blood pressure monitoring to assist with medication titration as well as to monitor for the development of preeclampsia. Labetalol and long-acting nifedipine are reasonable options in . The maternal and risks in a complicated by hypertension include the increased risk of developing superimposed preeclampsia (up to 20%), eclampsia, HELLP syndrome, delivery, growth restriction (8-15%), placental abruption (1.5%), (12-30%), and in utero demise (2- to 4-fold increase). # History of 3rd trimester IUFD: Prior unexplained IUFD, though pt does have multiple risk factors (obesity, chronic HTN, prothrombin heterozygous gene mutation). We reviewed the typical recommendation for testing 1-2 weeks prior to the timing of the IUFD with BPP and NST. Delivery at 39 weeks is recommended unless there is an indication for earlier delivery, reviewed today. # AMA, obesity: Not discussed in detail today. SARIAH obtained to request records, as these were not sent to our team. If further counseling is needed, this can be performed at the time of level 2 ultrasound. Recommendations: - Weight based LMWH 1mg/kg BID - current dose should be 100mg BID, I have updated her medication list. Our office will call Dr. Barrera to write this prescription, as the patient has restricted prescribing. - Anti-Xa monitoring is not routinely recommended as there is not robust data on the best levels for routine patients - If decision is made to monitor anti-Xa, trough levels are more reliable and should be checked pre-dose with goal 0.6-1.0 - Baseline preeclampsia labs, including LFTs and urine PCR - Start aspirin 81mg daily at 12 weeks - Level 2 ultrasound at 20 weeks due to obesity, AMA, cHTN, hx VTE on therapeutic anticoagulation - Genetic testing not discussed today - to be addressed by primary OB - Goal BP <140/90 due to chronic HTN, no current indication for meds - Home BP monitoring 1-2x/week, increase to daily at 20 weeks' - Serial growth US every 4-6 weeks' after level 2 ultrasound - testing weekly to start a 30 weeks due to timing of prior IUFD - Hold LMWH x24h before planned delivery - on admission, check CBC, coags, anti- Xa level - Consider 3rd trimester anesthesia consult - Vaginal delivery is preferred with reserved for usual obstetric indications - Restart LMWH ppx (6h after , 12-24h after ) and increase LMWH to weight-based dosing 24h with bridge to Coumadin - safe to breastfeed on Coumadin if this is her feeding goal. Should be transitioned back to her Coumadin clinic for lifelong anticoagulation due to hx PE x2 - Maternal insurance healthcare consultant (Ami Castanon RN) updated on the patient's plan of care today Medical Decision Making: Moderate Level 68657 Moderate number/complexity of problems including an undiagnosed new problem with uncertain prognosis or an acute illness with systemic symptoms for mother or fetus: CHTN/FGR/Previous pulmonary embolus on therapeutic anticoagulation (LMWH)/BMI > 35/History demise in previous Moderate amount and/or complexity of Data reviewed and analyzed including review of prior ultrasound, ordering another ultrasound, and review of prior external notes, etc. Moderate risk of morbidity or mortality related to prescription drug treatment, elective major surgery, or social determinants of health, etc. Services Provided: Procedures Code FOLLOW UP GROWTH 93574.0 UMBILICAL ARTERY DOPPLER 01724.0 29123.0 Thank you for allowing us to participate in her care Wood Jimenez MD Maternal /Critical Care Medicine [facility] [phone] office [phone] Cell/text Progress Notes - Hospital En counter - 11/01/2023 - GA:23w3d 11/01/2023 - - Yazmin Carlos RN Patient presented to ED for chest pain. She is a 33yo at 23w3d who doctors in [place]. Denies vaginal bleeding, leaking of fluid, or cramping. +FM. OB RN to Room 14 for EFM. Will notify Dr. Dao of tracing and patient is ready to discharge from ED Progress Notes - Hospital En counter - 10/22/2023 - GA:w0d 10/23/2023 - - Bryanna Bradshaw RN Discharge Note Data: Patient has been discharged home with instructions at 2150 via ambulatory accompanied by SO . Action: Written discharge/follow-up instructions were provided to patient. Prescriptions Called to preferred pharmacy, voice mail left with prescription order. . Belongings and medications from home sent with patient. Home equipment: none Patient is being discharged with the following new lines and drains: None. Is patient being discharged with a wound, dressing, or incision site? No. DISCHARGE CONTACT INFORMATION Phone number to reach the patient within the next 72 hours after discharge?: (not recorded) May staff leave a detailed message at this number? : (not recorded) Response: Patient verbalized understanding of discharge instructions, reason for discharge, and necessary follow-up appointments. Bryanna Bradshaw RN .................... 10/22/2023 9:59 PM 10/22/2023 - - Rosa Craft RN Electrical Line Splicer used for encounter: Kayleigh 22 0/7 complaints of vomiting, inability to eat, headache, chest pain, GI pain and abdominal cramping, visual disturbances stating her vision feels blurry and her eyes hurt and experiencing weakness. Burning on urination. States she has anxiety over the last 3 days is unable to sleep or breath well as it is untreated she states. Pt states she was taking a medication for anxiety symptoms but does not like the side effects so had discontinued taking it. States movement remains the same as it has but states she still doesn't feel much for movement at this time, denies consistent contractions LOF or vaginal bleeding. States she has not yet seen her primary provider since her previous visit to this center last week, as her primary provider's clinic told her they didn't have any openings until November 10. Vitals within normal limitations on exam and doppler tones were in the mid 150's. Dr. Stock consulted at 1909. Plan for 25mg Hydroxyzine/Vistaril, 1000ml fluid bolus, collect UA, 1000mg Tylenol, 40 famotidine, and pt needs to call her primary care provider to be seen early next week to treat anxiety/GI upset symptoms manager terminal. Oncoming RN will call MD with UA results and update following medication administrations. Rosa Craft RN .................... 10/22/2023 7:51 PM Progress Notes - Hospital En counter - 10/11/2023 - GA:20w3d 10/12/2023 - w4d - Rosa Craft RN Electrical Line Splicer used for encounter. Pt states she feels much improved post IV fluids. Per Dr. Stock pt is to schedule a follow up appointment with her provider regarding this encounter. Pt states she understands and is okay with this plan. Discharge instructions thoroughly reviewed and pt had no further questions at this time. Pt discharged to home at 2019. Rosa Craft RN .................... 10/11/2023 8:22 PM 10/11/2023 - w - Cari Cardona RN @ 20.3 wk IUP presents to with reports of lower uterine cramping and vaginal pressure that started around 1500. Pt denies any VB or LOF. Pt does have history of 31 wk IUFD. FHR obtained with doppler/US at 150's. SVE L/C/T/H/P. Will obtain UA. Cari Cardona RN .................... 10/11/2023 7:33 PM Progress Notes - Hospital En counter - 08/09/2023 - GA:11w3d 08/09/2023 - 11w3d - Deisy Bañuelos RN [facility] Consultation Visit Patient here for consultation due to h/o of PP PE x 2, IUFD at 31w6d. Is currently @ 11w3d. Telephone anthropology and archeology instructor used throughout visit. Assessment Histories reviewed today include: Past Medical History, Past Surgical History, Social History and Family History and Obstetric History. Refer to the corresponding sections of the history section of [facility] chart and the [facility] Navigator for details. Assessment: Patient's perception of movement: Has not felt movement yet. Normal movement discussed. heart rate observed during brief bedside ultrasound. Preferred delivery location: [facility] Education Some basic routine education done during assessment. See patient education section for details. Patient states that all her questions were answered. Scheduled to see Dr Odell today. After Visit Summary created, discussed and supplied to patient? Declined - Lebanese Speaking. Medications must be prescribed by Dr. Barrera. Recommendations for Lovenox dosing sent by Dr. Odell. Maternal Space Controller will reach out to discuss with pt as well. Is referring provider within [facility]? yes Consult note forwarded: N/A Face to Face RN time: 45 min Deisy Bañuelos RN 08/09/2023 9:20 AM Last Filed Vital Signs Vital Sign Reading Time Taken Comments Blood Pressure 118/78 11/11/2023 1:07 PM CDT Pulse 88 11/11/2023 1:07 PM CDT Temperature 36.9 ??C (98.5 ??F) 11/01/2023 1:49 PM CD T Respiratory Rate 20 11/01/2023 1:49 PM CDT Oxygen Saturation 98% 11/11/2023 1:07 PM CDT Inhaled Oxygen Concentration - - Weight 107.8 kg (237 lb 9.6 oz) 11/11/2023 1:07 PM CDT Height 162.6 cm (5' 4) 11/01/2023 1:49 PM CDT Body Mass Index 40.78 11/01/2023 1:49 PM CDT Plan of Treatment Upcoming Encounters Date Type Department Care Team (Late st Contact Info) Description 11/24/2023 10:30 AM CDT Office Visit [facility] [address] [place] [address] Lisa Holt, [facility] [address] [place] [address] 12/02/2023 10:15 AM CDT Appointment [facility] [address] [address] [place] [address] 12/02/2023 11:30 AM CDT Appointment [facility] [address] [address] [place] [address] 12/09/2023 10:15 AM CDT Appointment [facility] [address] [place] [address] [place] [address] 12/09/2023 11:00 AM CDT Appointment [facility] [address] [place] [address] [place] [address] Health Maintenance Due Date Last Done Comments [...] Priority Date/Time Associated Diagnosis Comments US OB FOLLOW UP ANY TRI SINGLE TA Routine 11/11/2023 10:57 AM CDT Chronic hypertension affecting Maternal obesity, antepartum, second trimester Prior with demise and current in second trimester TROPONIN T (HS) ONE TIME Timed 11/01/2023 4:29 PM CDT URINE CULTURE NATALIA 11/01/2023 3:40 PM CDT URINALYSIS MICROSCOPIC STAT 3:40 PM CDT COVID-19 MOLECULAR Today 11/01/2023 3: 40 PM CDT UA W/ SEDIMENT EXAM REFLEXED PER CRITERIA STAT 11/01/2023 3:40 PM CDT XR CHEST 2 VIEWS PA AND LATERAL STAT 11/01/2023 3:19 PM CDT EXTRA TUBE KEYES Today 11/01/2023 2:24 PM CDT PRO-BNP STAT 11/01/2023 2:24 PM CDT TROPONIN T (HS) ACUTE W/2HR REFLEX STAT 11/01/2023 2:24 PM CDT BASIC METABOLIC PANEL STAT 11/01/2023 2:24 PM CDT CBC W PLT NO DIFF STAT 11/01/2023 2:2 4 PM CDT EKG 12 LEAD STAT 11/01/2023 2:19 PM CDT URINALYSIS MICROSCOPIC STAT 9:21 PM CDT UA W/ SEDIMENT EXAM REFLEXED PER CRITERIA STAT 10/22/2023 9:21 PM CDT US OB DETAIL ANATOMY SINGLE Routine 10/12/2023 10:02 AM CDT Supervision of high risk in first trimester Chronic hypertension affecting Prior with demise Other acute pulmonary embolism without acute cor pulmonale (HC) UA W/ SEDIMENT EXAM REFLEXED PER CRITERIA STAT 10/11/2023 6:47 PM CDT SCAN CORRESP-EKG RESULTS 09/07/2023 12:00 AM CDT SCAN CORRESP-LABORATORY RESULTS 09/07/2023 12:00 AM CDT SCAN CORRESP-LABORATORY RESULTS 09/07/2023 12:00 AM CDT SCAN CORRESP-LABORATORY RESULTS 09/07/2023 12:00 AM CDT SCAN CORRESP-LABORATORY RESULTS 09/07/2023 12:00 AM CDT SCAN CORRESP-LABORATORY RESULTS 09/07/2023 12:00 AM CDT SCAN CORRESP-LABORATORY RESULTS 09/07/2023 12:00 AM CDT SCAN CORRESP-LABORATORY RESULTS 09/07/2023 12:00 AM CDT SCAN CORRESP-LABORATORY RESULTS 09/07/2023 12:00 AM CDT SCAN CORRESP-LABORATORY RESULTS 09/07/2023 12:00 AM CDT SCAN CORRESP-LABORATORY RESULTS 09/07/2023 12:00 AM CDT SCAN CORRESP-LABORATORY RESULTS 09/07/2023 12:00 AM CDT SCAN CORRESP-LABORATORY RESULTS 09/07/2023 12:00 AM CDT SCAN CORRESP-LABORATORY RESULTS 09/07/2023 12:00 AM CDT SCAN CORRESP-IMAGING 09/07/2023 12:00 AM CDT SCAN CORRESP-IMAGING 09/07/2023 12:00 AM CDT SCAN CORRESP-IMAGING 09/07/2023 12:00 AM CDT SCAN CORRESP-IMAGING 09/07/2023 12:00 AM CDT SCAN CORRESP-IMAGING 09/07/2023 12:00 AM CDT SCAN CORRESP-IMAGING 09/07/2023 12:00 AM CDT SCAN CORRESP-IMAGING 09/07/2023 12:00 AM CDT SCAN CORRESP-IMAGING 09/07/2023 12:00 AM CDT SCAN-ULTRASOUND REPORT 12:00 AM CDT SCAN-ULTRASOUND REPORT 12:00 AM CDT SCAN-CT INTERPRETATION 12:00 AM CDT US OB 1ST TRI SINGLE TA STAT 08/14/2023 1:06 PM CDT URINALYSIS MICROSCOPIC STAT 11:29 AM CDT UA W/ SEDIMENT EXAM REFLEXED PER CRITERIA STAT 08/14/2023 11:29 AM CDT CBC WITH AUTO DIFFERENTIAL STAT 08/14/2023 11:21 AM CDT PROTIME-INR STAT 08/14/2023 11:21 AM CDT LACTATE VENOUS STAT 08/14/2023 11:21 AM CDT HEPATIC FUNCTION PANEL STAT 11:21 AM CDT BASIC METABOLIC PANEL STAT 08/14/2023 11:21 AM CDT CBC WITH AUTO DIFFERENTIAL STAT 08/14/2023 11:21 AM CDT EKG 12 LEAD STAT 08/14/2023 10:57 AM CDT LC HIV-1/O/2, 4TH GENERATION Routine 04/08/2022 1:05 PM PHYSICAL AERODYNAMICIST Supervision of high risk in first trimester LC HCV ANTIBODY RFX TO QUANT PCR Routine 04/08/2022 1:05 PM PHYSICAL AERODYNAMICIST Supervision of high risk in first trimester HPV THIN PREP Routine 12/10/2021 4:35 PM CDT Pap smear for cervical cancer screening from Last 3 Months or Most Recently Relevant to Health Maintenance Results * Growth Follow Up Any Trimester (CPT 01572) If BPP w/NST needed use Testing section for order (11/11/2023 10:57 AM CDT) Anatomical Region Laterality Modality , 2or 3 TRIMESTER Ultrasound 11/11/2023 10:0 0 AM CDT Narrative 11/11/2023 11:45 AM CDT Referred By: KAJAL ??JAS ?? INDICATION: Indications Code 24 weeks gestation of Z3A.24 Maternal Obesity - BMI >35 (39) CHTN - no meds Hx IUFD at 31w6d Hx of PE x2 MPP consult DR. Odell (08/09/23) Meds - Lovenox Therapeutic weight based dosing (100 milligrams subcutaneous 2x daily (goal trough LMW level ??0.6-1.0 IU/mL)Prothrombin gen Declined serum screening Prothrombin gene mutation (heterozygous) 10/12/23 MPP level II : ??EFW 328 grams (23%/AC 40% cranial indices BPD 08%/HC < 03%) Normal anatomy/partial circumvallate placenta at superior edge/lakes 11/11/23 MPP f/u growth: ??EFW 624 grams (08%/AC 13%/Cranial indices BPD HC both < 03%/Normal DVP and normal UAR/HC just above-2SD ?? IMPRESSION: Intrauterine at 24w 6d. presentation is Transverse, head to maternal right. EFW 624 grams, percentile: 8. ??AC 13% Growth parameters and estimated weight are consistent with growth restriction: ?? Cranial indices BPD HC both < 03%/Normal DVP and normal UAR/HC just above-2SD Deepest Vertical Pocket of amniotic fluid: 4.16 ??cm. No major structural anomalies identified. The umbilical artery Dopplers were normal. Placental location: Posterior. There is no evidence of placenta previa. The transabdominal cervical length is not seen. RECOMMENDATIONS: -Return to primary provider for continued care. -Weekly BPPs+Weekly umbilical artery Dopplers to start at 28 weeks and scheduled with [facility] today. -Repeat growth ultrasound in 3 weeks scheduled with [facility] today. -The patient has scheduled future ultrasounds with [facility]. -When FGR is mild (EFW > 03% but < 10% and normal DVP and normal UAR as is present today), we recommend repeat growth ultrasound in 3-4 weeks, BPPs and Dopplers weekly (starting at 28 weeks), and delivery at 38 0/7 to 39 0/7 weeks' with a goal of 39 weeks (INDICATIONS FOR DELIVERY WILL LIKELY BE 38 WEEKS GIVEN Therapeutic LMWH needing to be discontinued 24 hours prior to planned delivery). - If at any time the Dopplers or amniotic fluid become abnormal, surveillance will be adjusted accordingly. If absent or reversed end diastolic flow in the umbilical artery were to occur, inpatient hospitalization for betamethasone and increased surveillance will be recommended. delivery may be indicated. COMMENT: The patient was seen by the Perinatologist today. ??The previous ultrasound and the records were reviewed. ??The results of today's ultrasound were communicated to the patient and communication facilitated with anthropology and archeology instructor on phone. ?? Possible etiologies for FGR include aneuploidy, genetic syndromes, infection, maternal medical conditions (ie. HTN), placental insufficiency, and constitutional patterns of growth differences. We did not identify any structural abnormalities on ultrasound today or other findings consistent with aneuploidy or infection (although this does not rule out these possible causes). We reviewed the normal amniotic fluid and umbilical artery Doppler studies. Given the growth indices today, close maternal/ surveillance is recommended. The established guidelines in our practice for management of uncomplicated FGR include: -When FGR is mild (EFW > 03% but < 10% and normal DVP and normal UAR as is present today), we recommend repeat growth ultrasound in 3-4 weeks, BPPs and Dopplers weekly (starting at 28 weeks), and delivery at 38 0/7 to 39 0/7 weeks' with a goal of 39 weeks (INDICATIONS FOR DELIVERY WILL LIKELY BE 38 WEEKS GIVEN Therapeutic LMWH needing to be discontinued 24 hours prior to planned delivery). - If at any time the Dopplers or amniotic fluid become abnormal, surveillance will be adjusted accordingly. If absent or reversed end diastolic flow in the umbilical artery were to occur, inpatient hospitalization for betamethasone and increased surveillance will be recommended. delivery may be indicated. There are risks, benefits and limitations to maternal serum screening, ultrasound, and genetic amniocentesis. ?? New government regulations related to the 21st Century Cures act require that this note be released to the patient immediately, sometimes before the referring provider has been contacted. ??A portion of the information was presented verbally to the patient. ??The remainder is submitted as background for the referring provider, to be discussed as needed. Medical Decision Making: Moderate Level 69380 ?Moderate number/complexity of problems including an undiagnosed new problem with uncertain prognosis or an acute illness with systemic symptoms for mother or fetus: ??CHTN/FGR/Previous pulmonary embolus on therapeutic anticoagulation (LMWH)/BMI > 35/History demise in previous ?Moderate amount and/or complexity of Data reviewed and analyzed including review of prior ultrasound, ordering another ultrasound, and review of prior external notes, etc. ?Moderate risk of morbidity or mortality related to prescription drug treatment, elective major surgery, or social determinants of health, etc. Services Provided: Procedures Code FOLLOW UP GROWTH 75862.0 UMBILICAL ARTERY DOPPLER 52213.0 40209.0 Procedure Note Wood Jimenez MD - 11/11/2023 Referred By: KAJAL BARRERA MD INDICATION: IndicationsCode 24 weeks gestation of [id number].24 Maternal Obesity - BMI >35 (39) CHTN - no meds Hx IUFD at 31w6d Hx of PE x2MPP consult DR. Odell (08/09/23) Meds - Lovenox Therapeutic weight based dosing (100 milligramssubcutaneous 2x daily (goal trough LMW level 0.6-1.0 IU/mL)Prothrombin gen Declined serum screening Prothrombin gene mutation (heterozygous) 10/12/23 MPP level II : EFW 328 grams (23%/AC 40% cranial indices BPD08%/HC < 03%) Normal anatomy/partial circumvallate placenta at superior edge/lakes 11/11/23 MPP f/u growth: EFW 624 grams (08%/AC 13%/Cranial indices BPD HCboth < 03%/Normal DVP and normal UAR/HC just above-2SD IMPRESSION: Intrauterine at 24w 6d. presentation is Transverse, head to maternal right. EFW 624 grams, percentile: 8. AC 13% Growth parameters and estimated weight are consistent with fetalgrowth restriction: Cranial indices BPD HC both < 03%/Normal DVP and normal UAR/HC justabove-2SD Deepest Vertical Pocket of amniotic fluid: 4.16 cm. No major structural anomalies identified. The umbilical artery Dopplers were normal. Placental location: Posterior. There is no evidence of placenta previa. The transabdominal cervical length is not seen. RECOMMENDATIONS: -Return to primary provider for continued care. -Weekly BPPs+Weekly umbilical artery Dopplers to start at 28 weeks andscheduled with [facility] today. -Repeat growth ultrasound in 3 weeks scheduled with [facility] today. -The patient has scheduled future ultrasounds with [facility]. -When FGR is mild (EFW > 03% but < 10% and normal DVP and normal UAR as ispresent today), we recommend repeat growth ultrasound in 3-4 weeks, BPPs and Dopplers weekly(starting at 28 weeks), and delivery at 38 0/7 to 39 0/7 weeks' with a goal of 39 weeks(INDICATIONS FOR DELIVERY WILL LIKELY BE 38 WEEKS GIVEN Therapeutic LMWH needing to bediscontinued 24 hours prior to planned delivery). - If at any time the Dopplers or amniotic fluid become abnormal, Fetalsurveillance will be adjusted accordingly. If absent or reversed end diastolic flow in theumbilical artery were to occur, inpatient hospitalization for betamethasone and increasedsurveillance will be recommended. delivery may be indicated. COMMENT: The patient was seen by the Perinatologist today. The previous ultrasoundand the records were reviewed. The results of today's ultrasound werecommunicated to the patient and communication facilitated with anthropology and archeology instructor on phone. Possible etiologies for FGR include aneuploidy, genetic syndromes,infection, maternal medical conditions (ie. HTN), placental insufficiency, and constitutional patternsof growth differences. We did not identify any structural abnormalities onultrasound today or other findings consistent with aneuploidy or infection (although this does notrule out these possible causes). We reviewed the normal amniotic fluid and umbilicalartery Doppler studies. Given the growth indices today, close maternal/ surveillance isrecommended. The established guidelines in our practice for management of uncomplicated FGRinclude: -When FGR is mild (EFW > 03% but < 10% and normal DVP and normal UAR as ispresent today), we recommend repeat growth ultrasound in 3-4 weeks, BPPs and Dopplers weekly(starting at 28 weeks), and delivery at 38 0/7 to 39 0/7 weeks' with a goal of 39 weeks(INDICATIONS FOR DELIVERY WILL LIKELY BE 38 WEEKS GIVEN Therapeutic LMWH needing to bediscontinued 24 hours prior to planned delivery). - If at any time the Dopplers or amniotic fluid become abnormal, Fetalsurveillance will be adjusted accordingly. If absent or reversed end diastolic flow in theumbilical artery were to occur, inpatient hospitalization for betamethasone and increasedsurveillance will be recommended. delivery may be indicated. There are risks, benefits and limitations to maternal serum screening,ultrasound, and genetic amniocentesis. New government regulations related to the Cures act requirethat this note be released to the patient immediately, sometimes before the referringprovider has been contacted. A portion of the information was presented verbally to thepatient. The remainder is submitted as background for the referring provider, to be discussed asneeded. Medical Decision Making: Moderate Level 86310 Moderate number/complexity of problems including an undiagnosed newproblem with uncertain prognosis or an acute illness with systemic symptoms for mother or fetus:CHTN/FGR/Previous pulmonary embolus on therapeutic anticoagulation (LMWH)/BMI > 35/Historyfetal demise in previous Moderate amount and/or complexity of Data reviewed and analyzedincluding review of prior ultrasound, ordering another ultrasound, and review of prior externalnotes, etc. Moderate risk of morbidity or mortality related to prescription drugtreatment, elective major surgery, or social determinants of health, etc. Services Provided: ProceduresCode FOLLOW UP QYRNIA09025.0 UMBILICAL ARTERY DOPPLER 35288.544205.0 Pineda Monzon DO [place] * TROPONIN T (HS) ONE TIME (11/01/2023 4:29 PM CDT) [facility] TROPONIN T HS <6 6-10 ng/L ng/L 11/01/2023 4:49 PM CDT [facility] Blood BLOOD SPECIMEN / Unknown Venipuncture / Unknown 11/01/2023 4:29 PM CDT 11/01/2023 4:31 PM CDT Cassi Skinner DO CHEMI STRY [facility] [address] [place] [address] * COVID-19 MOLECULAR (11/01/2023 3:40 PM CDT) [facility] COVID 19 [place] MOLECULAR Not detected Not detected 11/01/2023 4:15 PM CDT [facility] TESTING LABORATORY [facility] 11/01/2023 4:15 PM CDT [facility] Comment:Specimen submitted t o [facility] for testing. Other SPECIMEN FROM NASOPHARYNGEAL STRUCTURE / Unknown Non-Blood / Unknown 11/01/2023 3:40 PM CDT 11/01/2023 3:53 PM CDT Cassi Sweetutt DO MICRO BIOLOGY Performing Organization Address City/[facility]/ZIP Co de Phone Number [facility] [address] [place] [address] * (ABNORMAL) URINALYSIS MICROSCOPIC (11/01/2023 3:40 PM CDT) Only the most recent of3 resultswithin the time period is included. RBC 0-2 0-2, None Seen /HPF 11/01/2023 4:14 PM CDT [facility] WBC 6-10(A) 0-2, 3-5, None Seen /HPF 11/01/2023 4:14 PM CDT [facility] BACTERIA Many(A) None Seen, Rare, Few Bacteria/H PF 11/01/2023 4:14 PM CDT [facility] EPITHELIAL CELLS Many(A) None Seen, Few Epi/HPF 11/01/2023 4:14 PM CDT [facility] Urine URINE SPECIMEN / Unknown Non-Blood / Unknown 11/01/2023 3:40 PM CDT 11/01/2023 3:53 PM CDT Cassi Sweetutmark DO URINE Performing Organization Address City/[facility]/ZIP Co de Phone Number [facility] [address] [place] [address] * URINE CULTURE (11/01/2023 3:40 PM CDT) CULTURE <10,000 CFU/mL multiple organisms 11/02/2023 3:34 PM CDT [facility] Urine URINE SPECIMEN / Unknown Non-Blood / Unknown 11/01/2023 3:40 PM CDT 11/01/2023 3:53 PM CDT Cassi Vazquez Uriel Skinner DO MICRO BIOLOGY [facility] [address] [place] [address], [place] * (ABNORMAL) UA W/ SEDIMENT EXAM REFLEXED PER CRITERIA (11/01/2023 3:40 PM CDT) Only the most recent of4 resultswithin the time period is included. COLOR Yellow Yellow Color 11/01/2023 3:59 PM [facility] CLARITY Cloudy(A) Clear Clarity 11/01/2023 3:59 PM [facility] SPECIFIC GRAVITY,URINE >=1.030(A) 1.010, 1.015, 1.020, 1.025 11/01/2023 3:59 PM [facility] PH,URINE 6.0 6.0, 7.0, 8.0, 5.5, 6.5, 7.5, 8.5 11/01/2023 3:59 PM [facility] UROBILINOGEN,QU ALITATIVE Normal Normal EU/dl 11/01/2023 3:59 PM [facility] PROTEIN, URINE Trace(A) Negative mg/dL 11/01/2023 3:59 PM [facility] GLUCOSE, URINE Negative Negative mg/dL 11/01/2023 3:59 PM [facility] KETONES,URINE Trace(A) Negative mg/dL 11/01/2023 3:59 PM [facility] BILIRUBIN,URINE Abnormal(A) Negative 11/01/19 3:59 PM [facility] Comment:A variety of metabol ites and/or medications may result in a positive bilirubin result. Clinical correlation is recommended. OCCULT BLOOD,URINE Negative Negative 11/01/2023 3:59 PM [facility] NITRITE Negative Negative 11/01/2023 3:59 PM CDT [facility] LEUKOCYTE ESTERASE Moderate(A) Negative 11/01/2023 3:59 PM CDT [facility] Urine URINE SPECIMEN / Unknown Non-Blood / Unknown 11/01/2023 3:40 PM CDT 11/01/2023 3:53 PM CDT Cassi Trevino Plutmark DO URINE [facility] [address] [place] [address] * XR CHEST 2 VIEWS PA AND LATERAL (11/01/2023 3:19 PM CDT) Anatomical Region Laterality Modality CHEST, THORAX, Lung, HEART Digit al Radiography 11/01/2023 4:33 PM CDT Impressions 11/01/2023 4:33 PM CDT No acute cardiopulmonary process. Dictated by Ki Justin MD @ 11/01/2023 4:33:11 PM (Electronically Signed) Narrative 11/01/2023 4:33 PM CDT For Patients: ??As a result of the Cures Act, medical imaging exams and procedure reports are released immediately into your electronic medical record. ??You may view this report before your referring provider. ??If you have questions, please contact your health care provider. INDICATION: : Chest pain COMPARISON: Chest radiograph on July 04, 2023 TECHNIQUE: Two view(s) of the chest FINDINGS: The cardiomediastinal silhouette and pulmonary vasculature are unremarkable. There is no focal airspace consolidation, pleural effusion, or pneumothorax. No displaced fractures. Procedure Note Ki Justin MD - 11/01/2023 For Patients: As a result of the Cures Act, medical imagingexams and procedure reports are released immediately into your electronicmedical record. You may view this report before your referring provider.If you have questions, please contact your health care provider. INDICATION: : Chest pain COMPARISON: Chest radiograph on July 04, 2023 TECHNIQUE: Two view(s) of the chest FINDINGS: The cardiomediastinal silhouette and pulmonary vasculature areunremarkable. There is no focal airspace consolidation, pleural effusion, orpneumothorax. No displaced fractures. IMPRESSION: No acute cardiopulmonary process. Dictated by Ki Justin MD @ 11/01/2023 4:33:11 PM (Electronically Signed) Cassi Trevino Plutt DO GENER AL IMAGING * TROPONIN T (HS) ACUTE W/2HR REFLEX (11/01/2023 2:24 PM CDT) TROPONIN T HS <6 6-10 ng/L ng/L 11/01/2023 3:02 PM CDT [facility] Blood BLOOD SPECIMEN / Unknown Venipuncture / Unknown 11/01/2023 2:24 PM CDT 11/01/2023 2:29 PM CDT [facility] - 11/01/2023 3:02 PM CDT hs-cTnT (Elecsys Troponin T Gen [...] low risk in emergency department patient population. Cassi Skinner DO CHEMI STRY Performing Organization Address [facility] Co de Phone Number [facility] [address] [place] [address] * EXTRA TUBE KEYES (11/01/2023 2:24 PM CDT) Blood BLOOD SPECIMEN / Unknown Extra Tube / Unknown 11/01/2023 2:24 PM CDT 11/01/2023 2:41 PM CDT Doctor Unknown LABORATORY Performing Organization Address [facility] Co de Phone Number [facility] [address] [place] [address] * (ABNORMAL) CBC W PLT NO DIFF (11/01/2023 2:24 PM CDT) WHITE BLOOD COUNT 13.3(H) 4.5 - 11.0 thou/cu mm 11/01/2023 2:37 PM CDT [facility] RED BLOOD COUNT 4.00 4.00 - 5.20 mil/cu mm 11/01/2023 2:37 PM CDT [facility] HEMOGLOBIN 12.5 12.0 - 16.0 g/dL 11/01/2023 2:37 PM CDT [facility] HEMATOCRIT 36.2 33.0 - 51.0 % 11/01/2023 2:37 PM CDT [facility] MCV 91 80 - 100 fL 11/01/2023 2:37 PM CDT [facility] MCH 31.3 26.0 - 34.0 pg 11/01/2023 2:37 PM CDT [facility] MCHC 34.5 32.0 - 36.0 g/dL 11/01/2023 2:37 PM CDT [facility] RDW 14.0 11.5 - 15.5 % 11/01/2023 2:37 PM CDT [facility] PLATELET COUNT 265 140 - 440 thou/cu mm 11/01/2023 2:37 PM CDT [facility] MPV 9.9 6.5 - 11.0 fL 11/01/2023 2:37 PM CDT [facility] Blood BLOOD SPECIMEN / Unknown Venipuncture / Unknown 11/01/2023 2:24 PM CDT 11/01/2023 2:29 PM CDT Cassi Skinner DO HEMAT OLOGY [facility] [address] [place] [address] * PRO-BNP (11/01/2023 2:24 PM CDT) PRO-BNP 118 <125 pg/mL 11/01/2023 3:02 PM CDT [facility] Blood BLOOD SPECIMEN / Unknown Venipuncture / Unknown 11/01/2023 2:24 PM CDT 11/01/2023 2:29 PM CDT Narrative [facility] - 11/01/2023 3:02 PM CDT The following cut-points have been suggested for the use of proBNP for the diagnostic evaluation of heart failure (HF) in patient with acute dyspnea. Patients with eGFR >= 60 Diagnosis (rule in CHF) ? <50 Years Old ?450 pg/mL 50 - 75 Years Old ?900 pg/mL >75 Years Old ? 1800 pg/mL Exclusion (rule out CHF) Age Independent ?300 pg/mL A cutoff of 1200 pg/mL for patients with an eGFR <60 yields a diagnostic sensitivity of 89% and specificity of 72% for acute congestive heart failure. ? Cassi Skinner DO SEND OUTS [facility] [address] [place] [address] * (ABNORMAL) BASIC METABOLIC PANEL (11/01/2023 2:24 PM CDT) Only the most recent of2 resultswithin the time period is included. SODIUM 139 136 - 145 mmol/L 11/01/2023 3:02 PM [facility] POTASSIUM 3.4(L) 3.5 - 5.1 mmol/L 11/01/2023 3:02 PM [facility] CHLORIDE 103 98 - 107 mmol/L 11/01/2023 3:02 PM [facility] CO2,TOTAL 24 22 - 29 mmol/L 11/01/2023 3:02 PM [facility] ANION GAP 12 5 - 18 11/01/2023 3:02 PM [facility] GLUCOSE 86 70 - 99 mg/dL 11/01/2023 3:02 PM [facility] CALCIUM 9.5 8.6 - 10.0 mg/dL 11/01/2023 3:02 PM [facility] BUN 7 6 - 20 mg/dL 11/01/2023 3:02 PM [facility] CREATININE 0.44(L) 0.50 - 0.90 mg/dL 11/01/2023 3:02 PM [facility] BUN/CREAT RATIO 16 10 - 20 3:02 PM CDT [facility] eGFR >90 >90 mL/min/1.7 3m2 11/01/2023 3:02 PM CDT [facility] Comment:As of 2021, eG FR is calculated by the CKD-EPI creatinine equation without race adjustment. ??eGFR can be influenced by muscle mass, exercise, and diet. ??The reported eGFR is an estimation only and is only applicable if the renal function is stable. Blood BLOOD SPECIMEN / Unknown Venipuncture / Unknown 11/01/2023 2:24 PM CDT 11/01/2023 2:29 PM CDT Cassi Skinner DO CHEMI STRY Performing Organization Address [facility] de Phone Number [facility] [address] [place] [address] * EKG 12 LEAD (11/01/2023 2:19 PM CDT) Only the most recent of2 resultswithin the time period is included. Interpretation Normal sinus rhythm Moderate voltage criteria for LVH, may be normal variant Borderline ECG When compared with ECG of 14-Aug-2023 10:57, No significant change was found BEYOND NOW Ventricular Rate 82 BPM BEYOND NOW Atrial Rate 82 BPM BEYOND NOW P-R Interval 188 ms BEYOND NOW QRS Duration 80 ms BEYOND NOW QT 392 ms BEYOND NOW QTc 457 ms BEYOND NOW P [place] 50 degrees BEYOND NOW R [place] -15 degrees BEYOND NOW T [place] 17 degrees BEYOND NOW 11/01/2023 2:19 PM CDT 11/01/2023 9:10 PM CDT Cassi Skinner DO EKG O RD Performing Organization Address [facility] Co de Phone Number BEYOND NOW [place], [place] * Detailed Anatomy Single (CPT 01651) (10/12/2023 10:02 AM CDT) Anatomical Region Laterality Modality , 2or 3 TRIMESTER Ultrasound 10/12/2023 8:48 AM CDT Narrative 10/12/2023 10:40 AM CDT Referred By: KAJAL ??JAS ? INDICATION:BMI greater than 30.2 Indications Code 20 weeks gestation of Z3A.20 Maternal Obesity - BMI >35 (39) CHTN - no meds Hx IUFD at 31w6d Hx of PE x2 Meds - Lovenox Declined serum screening IMPRESSION: Intrauterine at 20w 4d. presentation is Cephalic. EFW 328 grams, percentile: 23. ?? Growth parameters and estimated weight are appropriate for gestational age. ? No major structural anomalies identified. ??Some views limited by positioning and maternal habitus. No markers for aneuploidy identified. Deepest Vertical Pocket of amniotic fluid: 5.21 cm. Placental location: Posterior There is no evidence of placenta previa. ??Partial circumvallate placenta noted. The cervical length is 4.6 cm. ?? RECOMMENDATIONS: -Return to primary provider for continued care. -No medication changes, continue Lovenox until planned delivery, continue for 6 weeks . -Delivery recommended at 38-39 weeks due to cHTN and history of IUFD -Weekly surveillance starting at 37 weeks. -No further ultrasounds are necessary for the present indication. -Follow up growth with MPP in 4 weeks to complete limited anatomy -Serial growth assessments every 4 weeks due to cHTN, history of IUFD (Can be done locally) -Recommend initiation of weekly surveillance at 28-32 weeks (Can be done locally) -Patient directed to schedule at the front office clerk on the way out, or to call [facility] within 2 business days to schedule follow up. CONSULT: Present findings are reassuring. ??The patient was seen by the Perinatologist today. ??The previous ultrasound and the record was reviewed. ??The results of the ultrasound were communicated to the patient. ??Alternatives available for detecting anomalies, aneuploidy and predicting developmental outcome for this were thoroughly discussed. ??The risks, benefits and limitations of maternal serum screening, ultrasound, and genetic amniocentesis were reviewed as needed with the patient. ??At the conclusion of our visit the patient declined any further genetic testing, being satisfied by the risk reduction of today's normal ultrasound study. We also discussed the circumvallate placenta, which are seen in 1-2% of pregnancies and is typically an incidental finding on ultrasound with a normal outcome. ??However, there is increased risk for bleeding, placental abruption, premature rupture of membranes, and growth restriction. ??Follow up as noted above. New government regulations related to the Cures act require that this note be released to the patient immediately, sometimes before the referring provider has been contacted. ??A portion of the information was presented verbally to the patient. ??The remainder is submitted as background for the referring provider, to be discussed as needed. Medical Decision Making: Moderate Level 17282 ?Moderate number/complexity of problems including an undiagnosed new problem with uncertain prognosis ?Moderate amount and/or complexity of Data reviewed and analyzed including review of prior ultrasound, ordering another ultrasound, and review of prior external notes, etc. ?Moderate risk of morbidity or mortality related to underlying conditions Services Provided: Procedures Code DETAIL ANATOMY 72956.0 Procedure Note Pineda Monzon, DO - 10/12/2023 Referred By: KAJAL BARRERA MD INDICATION:BMI greater than 30.2 IndicationsCode 20 weeks gestation of [id number].20 Maternal Obesity - BMI >35 (39) CHTN - no meds Hx IUFD at 31w6d Hx of PE x2 Meds - Lovenox Declined serum screening IMPRESSION: Intrauterine at 20w 4d. presentation is Cephalic. EFW 328 grams, percentile: 23. Growth parameters and estimated weight are appropriate forgestational age. No major structural anomalies identified. Some views limited by fetalpositioning and maternal habitus. No markers for aneuploidy identified. Deepest Vertical Pocket of amniotic fluid: 5.21 cm. Placental location: Posterior There is no evidence of placenta previa. Partial circumvallate placentanoted. The cervical length is 4.6 cm. RECOMMENDATIONS: -Return to primary provider for continued care. -No medication changes, continue Lovenox until planned delivery, continuefor 6 weeks . -Delivery recommended at 38-39 weeks due to cHTN and history of IUFD -Weekly surveillance starting at 37 weeks. -No further ultrasounds are necessary for the present indication. -Follow up growth with MPP in 4 weeks to complete limited anatomy -Serial growth assessments every 4 weeks due to cHTN, history ofIUFD (Can be done locally) -Recommend initiation of weekly surveillance at 28-32 weeks (Can bedone locally) -Patient directed to schedule at the front office clerk on the way out, or to callMPP within 2 business days to schedule follow up. CONSULT: Present findings are reassuring. The patient was seen by thePerinatologist today. The previous ultrasound and the record was reviewed. The results ofthe ultrasound were communicated to the patient. Alternatives available for detecting fetalanomalies, aneuploidy and predicting developmental outcome for this were thoroughlydiscussed. The risks, benefits and limitations of maternal serum screening, ultrasound, andgenetic amniocentesis were reviewed as needed with the patient. At the conclusion of our visitthe patient declined any further genetic testing, being satisfied by the risk reduction oftoday's normal ultrasound study. We also discussed the circumvallate placenta, which are seen in 1-2% ofpregnancies and is typically an incidental finding on ultrasound with a normal outcome.However, there is increased risk for bleeding, placental abruption, premature rupture ofmembranes, and growth restriction. Follow up as noted above. New government regulations related to the Cures act requirethat this note be released to the patient immediately, sometimes before the referringprovider has been contacted. A portion of the information was presented verbally to thepatient. The remainder is submitted as background for the referring provider, to be discussed asneeded. Medical Decision Making: Moderate Level 79630 Moderate number/complexity of problems including an undiagnosed newproblem with uncertain prognosis Moderate amount and/or complexity of Data reviewed and analyzedincluding review of prior ultrasound, ordering another ultrasound, and review of prior externalnotes, etc. Moderate risk of morbidity or mortality related to underlyingconditions Services Provided: ProceduresCode DETAIL [id number] Janna Odell MD US * SCAN CORRESP-LABORATORY RESULTS (09/07/2023 12:00 AM CDT) Only the most recent of13 resultswithin the time period is included. Scanner OTHER * SCAN CORRESP-EKG RESULTS (09/07/2023 12:00 AM CDT) Scanner OTHER * SCAN CORRESP-IMAGING (09/07/2023 12:00 AM CDT) Only the most recent of8 resultswithin the time period is included. Anatomical Region Laterality Modality Other Scanner OTHER * SCAN-ULTRASOUND REPORT (08/28/2023 12:00 AM CDT) Only the most recent of2 resultswithin the time period is included. Anatomical Region Laterality Modality Other Scanner OTHER * SCAN-CT INTERPRETATION (08/28/2023 12:00 AM CDT) Anatomical Region Laterality Modality Other Scanner OTHER * US OB 1ST TRI SINGLE TA (08/14/2023 1:06 PM CDT) Anatomical Region Laterality Modality , [...] (Electronically Signed) Silke Briggs MD US * CBC WITH AUTO DIFFERENTIAL (08/14/2023 11:21 AM CDT) WHITE BLOOD COUNT 9.0 4.5 - 11.0 thou/cu mm 08/14/2023 11:28 AM CDT [facility] RED BLOOD COUNT 4.49 4.00 - 5.20 mil/cu mm 08/14/2023 11:28 AM CDT [facility] HEMOGLOBIN 13.4 12.0 - 16.0 g/dL 08/14/2023 11:28 AM [facility] HEMATOCRIT 39.6 33.0 - 51.0 % 08/14/2023 11:28 AM [facility] MCV 88 80 - 100 fL 08/14/2023 11:28 AM [facility] MCH 29.8 26.0 - 34.0 pg 08/14/2023 11:28 AM [facility] MCHC 33.8 32.0 - 36.0 g/dL 08/14/2023 11:28 AM [facility] RDW 14.1 11.5 - 15.5 % 08/14/2023 11:28 AM [facility] PLATELET COUNT 294 140 - 440 thou/cu mm 08/14/2023 11:28 AM [facility] MPV 9.2 6.5 - 11.0 fL 08/14/2023 11:28 AM [facility] % NEUT 59.5 % 08/14/2023 11:28 AM [facility] % LYMPH 32.3 % 08/14/2023 11:28 AM [facility] % MONO 6.9 % 08/14/2023 11:28 AM [facility] % EOS 1.2 % 08/14/2023 11:28 AM [facility] % BASO 0.1 % 08/14/2023 11:28 AM [facility] ABSOLUTE NEUTROPHILS 5.4 1.7 - 7.0 thou/cu mm 08/14/2023 11:28 AM [facility] ABSOLUTE LYMPHOCYTES 2.9 0.9 - 2.9 thou/cu mm 08/14/2023 11:28 AM [facility] ABSOLUTE MONOCYTES 0.6 <0.9 thou/cu mm 08/14/2023 11:28 AM [facility] ABSOLUTE EOSINOPHILS 0.1 <0.5 thou/cu mm 08/14/2023 11:28 AM [facility] ABSOLUTE BASOPHILS 0.0 <0.3 thou/cu mm 08/14/2023 11:28 AM CDT [facility] Blood BLOOD SPECIMEN / Unknown Venipuncture / Unknown 08/14/2023 11:21 AM CDT 08/14/2023 11:25 AM CDT Silke Briggs MD HEMATOLOGY Performing Organization Address [facility]/ZIP Co de Phone Number [facility] [address] [place] [address] * LACTATE VENOUS (08/14/2023 11:21 AM CDT) LACTATE,VENOUS 0.6 0.5 - 2.0 mmol/L 08/14/2023 11:54 AM CDT [facility] Blood BLOOD SPECIMEN / Unknown Venipuncture / Unknown 08/14/2023 11:21 AM CDT 08/14/2023 11:25 AM CDT Silke Briggs MD CHEMISTRY [facility] [address] [place] [address] * PROTIME-INR (08/14/2023 11:21 AM CDT) INR 1.1 <1.3 08/14/2023 11:31 AM CDT [facility] PROTIME 12.2 10.3 - 12.3 sec 08/14/2023 11:31 AM CDT [facility] Blood BLOOD SPECIMEN / Unknown Venipuncture / Unknown 08/14/2023 11:21 AM CDT 08/14/2023 11:25 AM CDT Narrative [facility] - 08/14/2023 11:31 AM CDT ?Therapeutic [...] is on UFH. Silke Briggs MD HEMATOLOGY Performing Organization Address [facility]/ZIP Co de Phone Number [facility] [address] [place] [address] * (ABNORMAL) HEPATIC FUNCTION PANEL (08/14/2023 11:21 AM CDT) [facility] ALBUMIN 4.0 4.0 - 4.9 g/dL 08/14/2023 11:54 AM [facility] PROTEIN,TOTAL 6.9 6.0 - 8.0 g/dL 08/14/2023 11:54 AM [facility] BILIRUBIN,TOTAL 0.3 0.0 - 1.2 mg/dL 08/14/2023 11:54 AM [facility] BILIRUBIN,DIRECT <0.2 0.0 - 0.3 mg/dL 08/14/2023 11:54 AM [facility] BILIRUBIN,INDIRE CT 08/14/2023 11:54 AM [facility] Comment:Unable to calculate, Direct Bili <0.2 ALK PHOSPHATASE 59 35 - 104 IU/L 08/14/2023 11:54 AM [facility] ALT (SGPT) 9(L) 10 - 35 IU/L 08/14/2023 11:54 AM [facility] AST (SGOT) 15 10 - 35 IU/L 08/14/2023 11:54 AM [facility] Blood BLOOD SPECIMEN / Unknown Venipuncture / Unknown 08/14/2023 11:21 AM CDT 08/14/2023 11:25 AM CDT Silke Briggs MD CHEMISTRY Performing Organization Address [facility]/ZIP Co de Phone Number [facility] [address] [place] [address] * LC HCV ANTIBODY RFX TO QUANT PCR (04/08/2022 1:05 PM PHYSICAL AERODYNAMICIST) Pathologist [facility] HCV Ab <0.1 0.0 - 0.9 s/co ratio 04/10/2022 4:08 PM PHYSICAL AERODYNAMICIST [facility] ([facility]) Blood BLOOD SPECIMEN / Unknown Venipuncture / Unknown 04/08/2022 1:05 PM PHYSICAL AERODYNAMICIST 04/08/2022 1:08 PM PHYSICAL AERODYNAMICIST Narrative [facility] ([facility]) - 04/10/2022 4:08 PM PHYSICAL AERODYNAMICIST Performed at: ??[address] ??[id number] Tire Finisher: Zafar Lama MD, Phone: ??[phone] Kajal Barrera MD LABORATORY Performing Organization Address [facility] de Phone Number [facility] ([facility]) [address] [place] [address] * HIV-1/O/2, 4TH GENERATION (04/08/2022 1:05 PM PHYSICAL AERODYNAMICIST) [facility] HIV Scr 4th Gen Non Reactive Non Reactive 04/10/2022 9:09 AM [facility] ([facility]) Comment: HIV Negative HIV-1/HIV-2 antibodies and HIV-1 p24 antigen were NOT detected. There is no laboratory evidence of HIV infection. Blood BLOOD SPECIMEN / Unknown Venipuncture / Unknown 04/08/2022 1:05 PM PHYSICAL AERODYNAMICIST 04/08/2022 1:08 PM PHYSICAL AERODYNAMICIST [facility] ([facility]) - 04/10/2022 9:09 AM PHYSICAL AERODYNAMICIST Performed at: ??[address] ??[id number] Tire Finisher: Zafar Lama MD, Phone: ??[phone] Kajal Barrera MD LABORATORY Performing Organization Address [facility] Co de Phone Number [facility] ([facility]) [address] [place], [place] [address] * HPV HIGH RISK (12/10/2021 4:35 PM CDT) TYPE 16 Negative Negative 12/15/2021 5:37 PM CDT [facility]AL LABORATORY TYPE 18 Negative Negative 12/15/2021 5:37 PM CDT [facility] TRA LABORATORY OTHER HIGH RISK TYPES Negative Negative 12/15/2021 5:37 PM CDT [facility] Other (Cervical) Non-Blood / Unknown 12/10/2021 4:35 PM CDT 12/11/2021 4:11 PM CDT Narrative [facility] - 12/15/2021 5:37 PM CDT HPV types 16, 18, 31, 33, 35, 39, 45, 51, 52, 56, 58, 59, 66 and 68 DNA were undetectable or below the pre-set threshold. Methodology: Mobile Card Irma 4800 HPV Test Kajal Barrera MD MICROBIOLOGY [facility] [address] [place] [address], from Last 3 Months or Most Recently [...] Comments Code Status Discussion: Discussed Care Teams Scheduling Representative Relationship Specialty Start Date End Date Kjaal Barrera MD [address] [place] [address] PCP - General Family Practice 04/16/17 Sarwat Miles MD [address] [place] [address] Consulting Physician Surgery - General 06/09/19 Lamar Mayer RN [address] [place] [address] Registered Nurse Registered Nurse 06/09/[address] [place] [address] Registered Dietitian Brick Siding Applicator 06/09/19 Kajal Barrera MD [address] [place] [address] Referring Provider Family Practice 07/15/23
--- OUTSIDE RECORDS SUMMARY | 2023-11-12 20:59 | XMS_ITS | Clinical Summary ---
Author Organization [facility] Address [address] [place] [address] Care Team Providers Care Kiln Fireman Name Role Phone Doctor, No Primary Care [...] Maternal Grandmother Diabetes Maternal Grandmother Cancer Mother milk treater cancer of un known origin to patient [...] Comments Blood Pressure 131/90 02/19/2022 6:00 PM COMMUNITY HEALTH COUNSELOR Pulse 79 02/19/2022 6:00 PM COMMUNITY HEALTH COUNSELOR Temperature 36.5 ??C (97.7 ??F) 02/19/2022 4:09 PM CS T Respiratory Rate 21 02/19/2022 6:00 PM COMMUNITY HEALTH COUNSELOR Oxygen Saturation 99% 02/19/2022 6:00 PM COMMUNITY HEALTH COUNSELOR Inhaled Oxygen Concentration - - Weight 112.5 [...] ( season) 2022 01/14/2021, 12/23/2020 Influenza Vaccine (#1) 2023 2, 01/28/2021, 03/13/2020, Additional history exists Adult Tetanus Booster 01/29/2027 01/29/2017, 013 Pneumococcal <65 Aged Out No longer e ligible based on patient's age to complete this topic Advance Directives For more information, please contact: [phone] * Full Code (Latest Code Status on File) Date Activated Date Inactivated Comments 12/02/2012 1:52 PM 12/05/2012 6:57 PM Question Answer Comments How was code status determined? Patient Care Teams Kiln Fireman Relationship Specialty Start Date End Date Doctor, No No ad PCP - General Radiology 02/19/22
--- OUTSIDE RECORDS SUMMARY | 2023-11-12 20:59 | XMS_ITS | Referral Summary ---
Author Organization [facility] Address [address] [place] [address] Care Team Providers Care Clearance Diver Name Role Phone Mel[place], [facility] Primary Care Provider Kristy Jack MD Unavailable [phone] Allergies No known active allergies Medications [...] 01/26/2017 Bipolar disorder 01/25/2017 Overview: Diagnosed in [place] Mixed obsessional thoughts and acts 01/25/2017 Overview: Diagnosed in [place] Labor and delivery indication for care or [...] CDT ABSTRACT HIV Routine 04/28/2022 2:58 PM TOOL REPAIRER PAP IMAGED THIN LAYER SCREEN Routine 08/05/2012 [...] LAB - BLOOD ORDERABL ES UR LABORATORY [facility] Acute Care Lab [address] [facility], [address] [place] [address] [phone] * Hepatitis C antibody (10/13/2022 1:14 PM [...] UM SPECIALTY CORE/PROT/ENDO [facility] Specialty Core/Prot/Endo [address] [facility], [address] [phone] * ABSTRACT HIV (04/28/2022 2:58 PM TOOL REPAIRER) HIV 1&2 EXT Non-Reacti ve [facility] Comment:SEE SCAN FOR REFEREN CE RANGE Blood 04/28/2022 2:58 PM TOOL REPAIRER Narrative [facility] - 04/28/2022 2:58 PM TOOL REPAIRER [facility] LAB RESULTS Provider Outside LAB - HIM EXTERNAL R ESULT Performing Organization Address City/[facility]/ZIP Co de Phone Number [address] [phone] * PAP imaged thin layer, screen (08/05/2012 12:00 AM CDT) PAP GUILLERMINA Manzo Report Patient Name: KAYLEIGH LOCKWOOD MR#: [id number] Specimen #: [id number] Collected: 08/05/2012 Received: 08/08/2012 Reported: 08/09/2012 13:41 [...] DC Thayer (ASCP) Processed and screened at [facility], [facility] CLINICAL HISTORY: LMP: 04/21/2012 , Papanicolaou Test Limitations: ??Cervical cytology is a screening test with limited sensitivity; regular screening is critical for cancer prevention; Pap tests are primarily effective for the diagnosis/preventi on of squamous cell carcinoma, not adenocarcinomas or other cancers. TESTING LAB LOCATION: [facility] [address] [place], [place] ??[address] COLLECTION SITE: Client: ??[facility] Location: [facility]FP (R) COPATH Cytologic material (specimen) 08/05/2012 08/08/2012 12:52 PM CDT Berny Lopez MD LAB - OPTIME C LINICAL SPECIMEN COPATH from Last 3 Months or Most Recently Relevant to Health Maintenance Advance Directives For more information, please contact: [phone] * Full Code (Latest Code Status on File) Date Activated Date Inactivated Comments 10/13/2022 12:39 PM 10/16/2022 4:16 PM All basic a nd advanced life-sustaining interventions are performed as appropriate Question Answer Comments Code status determined by: Unable to dis cuss and no AD/POLST on file; continue PREVIOUSLY ORDERED code status Care Teams Clearance Diver Relationship Specialty Start Date End Date [facility], [address] [address] PCP - General 09/25/18 Kristy Jack MD [address] [facility] [address] [place] [address] Assigned OBGYN Provider 07/25/22
--- OUTSIDE RECORDS SUMMARY | 2023-11-12 20:59 | XMS_ITS | Referral Summary ---
Author Organization [facility] Address [address] [place] [address] Care Team Providers Care Line Out Worker Name Role Phone Doctor, No Primary Care [...] Comments Blood Pressure 131/90 02/19/2022 6:00 PM EQUINE INTERN Pulse 79 02/19/2022 6:00 PM EQUINE INTERN Temperature 36.5 ??C (97.7 ??F) 02/19/2022 4:09 PM CS T Respiratory Rate 21 02/19/2022 6:00 PM EQUINE INTERN Oxygen Saturation 99% 02/19/2022 6:00 PM EQUINE INTERN Inhaled Oxygen Concentration - - Weight 112.5 kg (248 lb) 12/01/2012 10:03 AM CDT Height 162.6 cm (5' 4) 12/01/2012 10:03 AM CDT Body Mass Index 42.57 12/01/2012 10:03 AM CDT Plan of Treatment Not on file Advance Directives For more information, please contact: [phone] * Full Code (Latest Code Status on File) Date Activated Date Inactivated Comments 12/02/2012 1:52 PM 12/05/2012 6:57 PM Question Answer Comments How was code status determined? Patient Care Teams Line Out Worker Relationship Specialty Start Date End Date Doctor, No No ad PCP - General Radiology 02/19/22
--- OUTSIDE RECORDS SUMMARY | 2023-11-12 20:59 | XMS_ITS | Clinical Summary ---
Author Organization [facility] Address [address] [place] [address] Care Team Providers Care Shoe Polisher Name Role Phone Clinic, [facility] Primary Care Provider Kristy Jack MD Unavailable [phone] Allergies No known active allergies Medications [...] 01/26/2017 Bipolar disorder 01/25/2017 Overview: Diagnosed in [place] Mixed obsessional thoughts and acts 01/25/2017 Overview: Diagnosed in [place] Labor and delivery indication for care or [...] Administration Dates Next Due COVID-19 MONOVALENT 12+ ([employer]) 01/14/2021,12/05 Influenza Vaccine >6 months,quad, PF ,12/10/2021,01/28/2021, [...] Vaccine ( season) 2022 04/22/2022, 01/14/2021, 12/23/2020 INFLUENZA VACCINE (#1) 2023 , 06/23/2022, 12/10/2021, Additional history exists PAP 12/10/2024 12/10/2021, 10/2021, 08/05/2012 GLUCOSE 10/16/2025 10/16/2022, 10/03, 10/16/2022, Additional history exists DTAP/TDAP/TD IMMUNIZATION (5 - Td or Tdap) 09/14/2032 09/14/2022, 09/01/2022, 01/29/2017, Additional history exists HIV SCREENING Completed 04/28/2022, 07/2016, 08/05/2012 HEPATITIS C SCREENING Completed 10/13/2022, 023 Pneumococcal Vaccine: Pediatrics (0 to 5 Years) [...] CDT ABSTRACT HIV Routine 04/28/2022 2:58 PM MAMMA LOGIST PAP IMAGED THIN LAYER SCREEN Routine 08/05/2012 [...] LAB - BLOOD ORDERABL ES UR LABORATORY [facility] Acute Care Lab [address] [facility], [address] [place] [address], [facility] [phone] * Hepatitis C antibody (10/13/2022 1:14 PM [...] UM SPECIALTY CORE/PROT/ENDO UM Specialty Core/Prot/Endo [address] [facility] [address] [facility], [address] [place] [address], [facility] [phone] * ABSTRACT HIV (04/28/2022 2:58 PM MAMMA LOGIST) HIV 1&2 EXT Non-Reacti ve [facility] Comment:SEE SCAN FOR REFEREN CE RANGE Blood 04/28/2022 2:58 PM MAMMA LOGIST Narrative [facility] - 04/28/2022 2:58 PM MAMMA LOGIST [facility] LAB RESULTS Provider Outside LAB - HIM EXTERNAL R ESULT [facility] [address] [place] [address], [facility] [phone] * PAP imaged thin layer, screen (08/05/2012 12:00 AM CDT) PAP GUILLERMINA Manzo Report Patient Name: KAYLEIGH LOCKWOOD MR#: [id number] Specimen #: [id number] Collected: 08/05/2012 Received: 08/08/2012 Reported: 08/09/2012 13:41 [...] DC Thayer (ASCP) Processed and screened at [facility], [facility] CLINICAL HISTORY: LMP: 04/21/2012 , Papanicolaou Test Limitations: ??Cervical cytology is a screening test with limited sensitivity; regular screening is critical for cancer prevention; Pap tests are primarily effective for the diagnosis/preventi on of squamous cell carcinoma, not adenocarcinomas or other cancers. TESTING LAB LOCATION: [facility] [address] [place], [place] ??[address] COLLECTION SITE: Client: ??[facility] Location: [facility]FP (R) COPATH Cytologic material (specimen) 08/05/2012 08/08/2012 12:52 PM CDT Berny Lopez MD LAB - OPTIME C LINICAL SPECIMEN COPATH from Last 3 Months or Most Recently Relevant to Health Maintenance Advance Directives For more information, please contact: [phone] * Full Code (Latest Code Status on File) Date Activated Date Inactivated Comments 10/13/2022 12:39 PM 10/16/2022 4:16 PM All basic a nd advanced life-sustaining interventions are performed as appropriate Question Answer Comments Code status determined by: Unable to dis cuss and no AD/POLST on file; continue PREVIOUSLY ORDERED code status Care Teams Shoe Polisher Relationship Specialty Start Date End Date Clinic, [address] [id number] PCP - General 09/25/18 Kristy Jack MD [address] [address] Assigned OBGYN Provider 07/25/22
--- NOTE | 2023-11-12 21:53 | CRLHL7_ITS ---
For Patients: As a result of the Century Cures Act, medical imaging exams and procedure reports are released immediately into your electronic medical record. You may view this report before your referring provider. If you have questions, please contact your health care provider. INDICATION: Left flank pain. TECHNIQUE: Limited ultrasound examination of the kidneys and bladder was performed. Grayscale and color Doppler images were obtained. COMPARISON: None. FINDINGS: Right kidney: 12.7 x 4.7 x 6.2 cm. Normal in size and echogenicity. Normal cortex. No suspicious renal masses. No hydronephrosis or obstructive calculus identified. Left kidney: 14.0 x 6.9 x 6.1 cm. Normal in size and echogenicity. Normal cortex. No suspicious renal masses. No hydronephrosis or obstructive calculus identified. Bladder: Unremarkable. Prevoid volume of 17 mL. No postvoid volumes were obtained. No color images of the bladder were obtained, ureteral jets were not observed. IMPRESSION: Unremarkable ultrasound examination of the kidneys and bladder. No hydronephrosis. Dictated by Elkin Avendaño MD @ 11/12/2023 11:41:29 PM (Electronically Signed)
[2023-11-12 22:12] LABS: Appearance Urine Clear (Clear); Bilirubin Urine 1+ (Negative); Blood Urine Negative (Negative); Color Urine Amber (Yellow); Glucose Urine Negative (Negative); Ketones Urine 1+ (Negative); Leukocyte Esterase Urine Negative (Negative); Nitrite Urine Negative (Negative); Protein Urine Trace (Negative); Specific Gravity Urine >= 1.030 (1.000-1.030); Urobilinogen Urine 0.2 (0.2-1.0)
[2023-11-12 22:20] LABS: Basophils Percent Auto 0.1 % (0.0-3.0); Eosinophils Percent Auto 0.6 % (0.0-7.0); Hematocrit 35.5 % (33.0-51.0); Hemoglobin* 11.8 gm/dL (12.0-16.0); Immature Granulocytes Pct Auto 1.6 %; Lymphocytes Percent Auto 24.2 % (20-44); Mean Corpuscular HGB Conc 33 gm/dL (32-36); Mean Corpuscular Hemoglobin 30 pg (26-34); Mean Corpuscular Volume 89 fL (80-100); Monocytes Percent Auto 5.1 % (0.0-11.0); Neutrophils Percent Auto 68.4 % (42.0-72.0); Platelet Count* 243 K/uL (140-440); RDW Coefficient of Variation % 13.6 % (11.5-15.5); Red Blood Count 3.98 m/uL (4.00-5.20); White Blood Count* 15.96 K/uL (4.50-11.00)
[2023-11-12 22:26] LABS: Slide Review Reflex No
[2023-11-12 22:32] LABS: Amorphous Sediment Urine Few; RBC Urine 0-2 (0-2); Squamous Epithelial Cell Urine Many (None-Few); WBC Urine 0-2 (0-5)
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
[2023-11-12] MEDS: 0.9 % SODIUM CHLORIDE 500 ML 500 ML IV (22:55)
[2023-11-12] MEDS: ACETAMINOPHEN INJ 1,000 MG/100 ML VIAL 400 MG IVPB (23:07)
[2023-11-12] MEDS: GI COCKTAIL (VISC LIDO/ANTACID) 30 ML PO (23:10)
[2023-11-13 00:24] VITALS: BP 99/58; PULSE 74
--- NOTE | 2023-11-13 01:22 | PC.OBNST ---
NST Note NST Note Start: 11/12/23 21:07 Freq: ONCE Status: Active Protocol: Document 11/13/23 01:05 SARAH (Rec: 11/13/23 01:21 SARAH [id number]) NST Note 5 Para (# of births) 3 EDC 03/01/24 Gestational Age In Weeks & Days 24 Weeks & 3 Days High Risk Factors High Blood Pressure - Preexisting,Advanced Maternal Age,History of / Stillborn Patient Presented with Complaint(s) of Pain If Pain, describe location Left sided abdominal pain radiating to left flank. Other Complaints Currently taking antibiotic for UTI (seen elsewhere). Appropriate for Gestational Age Yes RN Brooke Estes RN Date 11/13/23 Appropriate for Gestational Age Yes Lisha Valenzuela B McDermott Date 11/13/23 OB NST charge Yes Complete NST Note via Write Note Yes The provider's electronic signature indicates the NST is reactive/appropriate for gestational age. *Note to provider: If an addendum is required, open the patient's chart and click on the note under the Nurse/Allied Health tab.
== END 2023-11-13 01:06 | disposition home or self-care (01) ==
LOC: OB OUT 20:57 → OB 20:57
PROVIDERS: PCP Family Medicine; Visit Provider Obstetrics & Gynecology
DX: O26.892 Other specified pregnancy related conditions, second trimester (principal); R10.9 Unspecified abdominal pain; O13.2 Gestational [pregnancy-induced] hypertension without significant proteinuria, second trimester; Z3A.24 24 weeks gestation of pregnancy
CPT/HCPCS: 36415; 59025; 76770; 76775; 81001; 81003; 85025; 87086; G0463; A9270; J0131; J7030

== ENCOUNTER 2023-12-21 12:56 | Outpatient (CLI) | payer MEDICAID, SELFPAY ==
--- NOTE | 2023-12-21 13:00 | CRLHL7_ITS ---
For Patients: As a result of the Century Cures Act, medical imaging exams and procedure reports are released immediately into your electronic medical record. You may view this report before your referring provider. If you have questions, please contact your health care provider. INDICATION: Intrauterine growth restriction TECHNIQUE: Ultrasound OB pelvis transabdominal. Real-time hooks-scale imaging of the fetus was performed with color Doppler and spectral Doppler analysis of the umbilical artery without stress testing. COMPARISON: Obstetric ultrasound 08/28/2023 FINDINGS: Sonographic imaging demonstrates a single living intrauterine gestation. Fetus demonstrates a regular cardiac rate of 137 beats per minute. Fetus has a cephalic orientation. The placenta lies posterior. Amniotic fluid volume appears normal with a MVP of 4.5 cm. breathing movements, motion, and tone were all observed. Cord Doppler S/D ratio: 3.2 IMPRESSION: Single viable intrauterine with a biophysical profile 11/10. Dictated by Hong Bedolla MD @ 12/21/2023 1:52:35 PM (Electronically Signed)
== END 2023-12-21 12:57 | disposition home or self-care (01) ==
LOC: US 12:57
PROVIDERS: PCP Family Medicine; Visit Provider Obstetrics & Gynecology
DX: O36.5990 Maternal care for other known or suspected poor fetal growth, unspecified trimester, not applicable or unspecified (principal)
CPT/HCPCS: 76819; 76820; T1013

== ENCOUNTER 2023-12-30 08:04 | Outpatient (CLI) | payer MEDICAID, SELFPAY ==
--- NOTE | 2023-12-30 08:15 | CRLHL7_ITS ---
For Patients: As a result of the Century Cures Act, medical imaging exams and procedure reports are released immediately into your electronic medical record. You may view this report before your referring provider. If you have questions, please contact your health care provider. INDICATION: IUGR COMPARISON: 12/21/2023 TECHNIQUE: Real time hooks scale imaging of the fetus was performed. Without non-stress testing. FINDINGS: Sonographic imaging demonstrates a single living intrauterine gestation. Fetus demonstrates a regular cardiac rate of 125 beats per minute. Fetus has a vertex position. The amniotic fluid volume appears normal and there is a single deepest pocket measurement of 5.4 cm. The fetus was active and demonstrated normal breathing movements. There was normal flexion and extension of the trunk and extremities. IMPRESSION: Normal biophysical profile score of 8 out of 8. Dictated by Logan Felix MD @ 12/30/2023 9:48:03 AM (Electronically Signed)
== END 2023-12-30 08:05 | disposition home or self-care (01) ==
PROVIDERS: PCP Family Medicine; Visit Provider Obstetrics & Gynecology
DX: O36.5990 Maternal care for other known or suspected poor fetal growth, unspecified trimester, not applicable or unspecified (principal)
CPT/HCPCS: 76819; T1013

== ENCOUNTER 2024-01-04 09:46 | Outpatient (CLI) | payer MEDICAID, SELFPAY ==
--- NOTE | 2024-01-04 09:50 | CRLHL7_ITS ---
For Patients: As a result of the Century Cures Act, medical imaging exams and procedure reports are released immediately into your electronic medical record. You may view this report before your referring provider. If you have questions, please contact your health care provider. INDICATION: Growth and BPP, hypertension, IUGR TECHNIQUE: Real time hooks scale imaging of the fetus was performed. COMPARISON: 12/30/2023 FINDINGS: Sonographic imaging demonstrates a single living intrauterine gestation. Fetus demonstrates a regular cardiac rate of 139 beats per minute. Fetus has a vertex position. The placenta lies posteriorly. Amniotic fluid volume appears normal and there is a single deepest pocket of 6.8 cm. The estimated weight is 1785gm which lies at the 29th %. On the prior OB ultrasound dated 08/18/2022 the estimated weight was at the 71st percentile. BPD 36th percentile. HC 9th percentile. AC 46th percentile. FL 18th percentile. The fetus was active and demonstrated normal breathing movements. There was normal flexion and extension of the trunk and extremities. IMPRESSION: Normal biophysical profile score 8/8. Sonographic gestational age 31 weeks 4 days and sonographic due date of 03/03/2024. Good correlation with dates. Estimated weight 29th percentile. Abdominal circumference 46th percentile. Dictated by Logan Felix MD @ 01/04/2024 10:23:35 PM (Electronically Signed)
--- OUTSIDE RECORDS SUMMARY | 2024-01-04 09:50 | XMS_ITS | Clinical Summary ---
Author Organization [facility] Address [address] [place] [address] Care Team Providers Care Forest Nursery Worker Name Role Phone Clinic, [facility] Primary Care Provider Kristy Jack MD Unavailable [phone] Allergies No known active allergies Medications Medication Sig Dispensed Refills Start Date End Date Status Vit-Fe Fumarate-FA ( MULTIVITAMIN PLUS IRON) 27-0.8 MG TABS per tablet Take 1 tablet by mouth daily Active sertraline (ZOLOFT) 25 MG tabletIndications:Michelle r depressive disorder with single episode, in full remission (H),Generalized anxiety disorder Take 1 tablet (25 mg) [...] 01/26/2017 Bipolar disorder 01/25/2017 Overview: Diagnosed in [place] Mixed obsessional thoughts and acts 01/25/2017 Overview: Diagnosed in [place] Labor and delivery indication for care or [...] Administration Dates Next Due COVID-19 MONOVALENT 12+ (nanoRETE) 01/14/2021,12/05 Influenza Vaccine >6 months,quad, PF ,12/10/2021,01/28/2021, [...] of 3 - 19+ 3-dose series) 2007 BMP 10/17/2023 10/16/2022, 10/03, 10/14/2022, Additional history exists COVID-19 Vaccine () 12/05/2023 04/22/2022, 01/14/2021, 12/23/2020 INFLUENZA VACCINE (#1) 2023 , 06/23/2022, 12/10/2021, Additional history exists PAP 12/10/2024 12/10/2021, 10/2021, 08/05/2012 GLUCOSE 10/16/2025 10/16/2022, 10/03, 10/16/2022, Additional history exists DTAP/TDAP/TD IMMUNIZATION (5 - Td or Tdap) 09/14/2032 09/14/2022, 09/01/2022, 01/29/2017, Additional history exists RSV VACCINE (1 - 1-dose 75+ series) 2063 HIV SCREENING Completed 04/28/2022, 07/2016, 08/05/2012 HEPATITIS [...] CDT ABSTRACT HIV Routine 04/28/2022 2:58 PM TRANSPORTATION SPECIALIST PAP IMAGED THIN LAYER SCREEN Routine 08/05/2012 [...] LAB - BLOOD ORDERABL ES UR LABORATORY [facility] Acute Care Lab [address] [facility], [address] [place] [address] [phone] * Hepatitis C antibody (10/13/2022 1:14 PM [...] UM SPECIALTY CORE/PROT/ENDO UM Specialty Core/Prot/Endo [address] [facility], [address] [phone] * ABSTRACT HIV (04/28/2022 2:58 PM TRANSPORTATION SPECIALIST) HIV 1&2 EXT Non-Reacti ve [facility] Comment:SEE SCAN FOR REFEREN CE RANGE Blood 04/28/2022 2:58 PM TRANSPORTATION SPECIALIST Narrative [facility] - 04/28/2022 2:58 PM TRANSPORTATION SPECIALIST [facility] LAB RESULTS Provider Outside LAB - HIM EXTERNAL R ESULT Performing Organization Address City/[facility]/ZIP Co de Phone Number [address] [phone] * PAP imaged thin layer, screen (08/05/2012 12:00 AM CDT) PAP GUILLERMINA Manzo Report Patient Name: KAYLEIGH LOCKWOOD MR#: [id number] Specimen #: [id number] Collected: 08/05/2012 Received: 08/08/2012 Reported: 08/09/2012 13:41 [...] DC Thayer (ASCP) Processed and screened at [facility], [facility] CLINICAL HISTORY: LMP: 04/21/2012 , Papanicolaou Test Limitations: ??Cervical cytology is a screening test with limited sensitivity; regular screening is critical for cancer prevention; Pap tests are primarily effective for the diagnosis/preventi on of squamous cell carcinoma, not adenocarcinomas or other cancers. TESTING LAB LOCATION: [facility] [address] [place], [place] ??[address] COLLECTION SITE: Client: ??[facility] Location: RMFP (R) COPATH Cytologic material (specimen) 08/05/2012 08/08/2012 12:52 PM CDT Berny Lopez MD LAB - OPTIME C LINICAL SPECIMEN COPATH from Last 3 Months or Most Recently Relevant to Health Maintenance Advance Directives For more information, please contact: [phone] * Full Code (Latest Code Status on File) Date Activated Date Inactivated Comments 10/13/2022 12:39 PM 10/16/2022 4:16 PM All basic a nd advanced life-sustaining interventions are performed as appropriate Question Answer Comments Code status determined by: Unable to dis cuss and no AD/POLST on file; continue PREVIOUSLY ORDERED code status Care Teams Forest Nursery Worker Relationship Specialty Start Date End Date [facility], [address] [address] PCP - General 09/25/18 Kristy Jack MD [address] [facility] [address] [place] [address] Assigned OBGYN Provider 07/25/22
--- OUTSIDE RECORDS SUMMARY | 2024-01-04 09:50 | XMS_ITS | Referral Summary ---
Author Organization [facility] Address [address] [place] [address] Care Team Providers Care Band Teacher Name Role Phone [place], [facility] Primary Care Provider Kristy Jack MD Unavailable [phone] Allergies No known active allergies Medications [...] 01/26/2017 Bipolar disorder 01/25/2017 Overview: Diagnosed in [place] Mixed obsessional thoughts and acts 01/25/2017 Overview: Diagnosed in [place] Labor and delivery indication for care or [...] CDT ABSTRACT HIV Routine 04/28/2022 2:58 PM SOFTWARE IMPLEMENTATION PROJECT MANAGER PAP IMAGED THIN LAYER SCREEN Routine 08/05/2012 [...] LAB - BLOOD ORDERABL ES UR LABORATORY [facility] Acute Care Lab [address] [facility], [address] [place] [address] [phone] * Hepatitis C antibody (10/13/2022 1:14 PM [...] UM SPECIALTY CORE/PROT/ENDO UM Specialty Core/Prot/Endo [address] [facility], [address] [phone] * ABSTRACT HIV (04/28/2022 2:58 PM SOFTWARE IMPLEMENTATION PROJECT MANAGER) HIV 1&2 EXT Non-Reacti ve [facility] Comment:SEE SCAN FOR REFEREN CE RANGE Blood 04/28/2022 2:58 PM SOFTWARE IMPLEMENTATION PROJECT MANAGER Narrative [facility] - 04/28/2022 2:58 PM SOFTWARE IMPLEMENTATION PROJECT MANAGER [facility] LAB RESULTS Provider Outside LAB - HIM EXTERNAL R ESULT Performing Organization Address City/[facility]/ZIP Co de Phone Number [address] [phone] * PAP imaged thin layer, screen (08/05/2012 12:00 AM CDT) PAP GUILLERMINA Manzo Report Patient Name: KAYLEIGH LOCKWOOD MR#: [id number] Specimen #: [id number] Collected: 08/05/2012 Received: 08/08/2012 Reported: 08/09/2012 13:41 [...] and screened at [facility], [facility] CLINICAL HISTORY: LMP: 04/21/2012 , Papanicolaou Test Limitations: ??Cervical cytology is a screening test with limited sensitivity; regular screening is critical for cancer prevention; Pap tests are primarily effective for the diagnosis/preventi on of squamous cell carcinoma, not adenocarcinomas or other cancers. TESTING LAB LOCATION: [facility] [address] [place], [place] ??[address] COLLECTION SITE: Client: ??[facility] Location: [facility]FP (R) COPATH Cytologic material (specimen) 08/05/2012 08/08/2012 12:52 PM CDT Berny Lopez MD LAB - OPTIME C LINICAL SPECIMEN COPATH from Last 3 Months or Most Recently Relevant to Health Maintenance Advance Directives For more information, please contact: [phone] * Full Code (Latest Code Status on File) Date Activated Date Inactivated Comments 10/13/2022 12:39 PM 10/16/2022 4:16 PM All basic a nd advanced life-sustaining interventions are performed as appropriate Question Answer Comments Code status determined by: Unable to dis cuss and no AD/POLST on file; continue PREVIOUSLY ORDERED code status Care Teams Band Teacher Relationship Specialty Start Date End Date [facility], [address] [address] PCP - General 09/25/18 Kristy Jack MD [address] [facility] [address] [place] [address] Assigned OBGYN Provider 07/25/22
--- OUTSIDE RECORDS SUMMARY | 2024-01-04 09:51 | XMS_ITS | Clinical Summary ---
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 found in the Results review section of the [facility] chart. 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 -Repeat growth ultrasound in 3 weeks scheduled with [facility] today. -The patient has scheduled future ultrasounds with [facility]. -When FGR is mild (EFW > 03% [...] to the patient and communication facilitated with commercial roofing estimator on phone. Possible etiologies for FGR include [...] , recent studies including the CHAP trial ([facility] 2021) have shown improved maternal and outcomes [...] due to hx PE x2 - Maternal menagerie caretaker (Ami Castanon RN) updated on the patient's plan of care today Medical Decision Making: Moderate Level 57988 Moderate number/complexity of problems including an undiagnosed [...] Services Provided: Procedures Code FOLLOW UP GROWTH 44450.0 UMBILICAL ARTERY DOPPLER 47413.0 37150.0 Thank you for allowing us to participate in her care Wood Jimenez MD Maternal /Critical Care Medicine [facility] [phone] office [phone] Cell/text Progress Notes - Hospital En counter - 11/01/2023 - GA:23w3d 11/01/2023 - w3d - Yazmin Carlos RN Patient presented to ED for chest pain. She is a 33yo at 23w3d who doctors in [place]. Denies vaginal bleeding, leaking of fluid, or cramping. +FM. OB RN to Room 14 for EFM. Will notify Dr. Dao of tracing and patient is ready to discharge from ED Progress Notes - Hospital En counter - 10/22/2023 - GA:22w0d 10/23/2023 - w1d - Bryanna Bradshaw RN Discharge Note Data: [...] RN .................... 10/22/2023 9:59 PM 10/22/2023 - 22w0d - Rosa Craft RN Automotive Alignment Specialist used for encounter: Kayleigh complaints of vomiting, inability to eat, headache, [...] the mid 150's. Dr. Stock consulted at 1910. Plan for 25mg Hydroxyzine/Vistaril, 1000ml fluid bolus, collect UA, 1000mg Tylenol, 40 famotidine, and pt needs to call her primary care provider to be seen early next week to treat anxiety/GI upset symptoms fci. Oncoming RN will call MD with UA results and update following medication administrations. Rosa Craft RN .................... 10/22/2023 7:51 PM Progress Notes - Hospital En counter - 10/11/2023 - GA:20w3d 10/12/2023 - 4d - Rosa Craft RN Automotive Alignment Specialist used for encounter. Pt states she feels [...] RN .................... 10/11/2023 8:22 PM 10/11/2023 - - Cari Cardona RN @ 20.3 wk [...] counter - 08/09/2023 - GA:11w3d 08/09/2023 - - Deisy Bañuelos RN [facility] Consultation Visit Patient here for consultation due to h/o of PP PE x 2, IUFD at 31w6d. Is currently @ 11w3d. Telephone commercial roofing estimator used throughout visit. Assessment Histories reviewed today include: Past Medical History, Past Surgical History, Social History and Family History and Obstetric History. Refer to the corresponding sections of the history section of [facility] chart and the [facility] Navigator for details. Assessment: Patient's perception of movement: Has not felt movement yet. Normal movement discussed. heart rate observed during brief bedside ultrasound. Preferred delivery location: [facility] Education Some basic routine education done during assessment. See patient education section for details. Patient states that all her questions were answered. Scheduled to see Dr Odell today. After Visit Summary created, discussed and supplied to patient? Declined - Ghanaian Speaking. Medications must be prescribed by Dr. Barrera. Recommendations for Lovenox dosing sent by Dr. Odell. Maternal Boot Trimmer will reach out to discuss with pt as well. Is referring provider within [facility]? yes Consult note forwarded: N/A Face to Face RN time: 45 min Deisy Bañuelos RN 08/09/2023 9:20 AM Last Filed Vital Signs Vital Sign Reading Time Taken Comments Blood Pressure 114/60 12/23/2023 9:22 AM CDT Pulse 79 12/23/2023 9:22 AM CDT Temperature 36.7 ??C (98 ??F) 12/17/2023 3:40 PM CDT Respiratory Rate 16 12/17/2023 3:40 PM CDT Oxygen Saturation 98% 11/11/2023 1:07 PM CDT Inhaled Oxygen Concentration - - Weight 107.8 kg (237 lb 9.6 oz) 11/11/2023 1:07 PM CDT Height 162.6 cm (5' 4) 11/01/2023 1:49 PM CDT Body Mass Index 40.78 11/01/2023 1:49 PM CDT Plan of Treatment Upcoming Encounters Date Type Department Care Team (Late st Contact Info) Description 01/05/2024 10:00 AM CDT Office Visit [facility] [address] [facility] [address] Kajal Barrera MD [address] [place] [address] 01/06/2024 11:00 AM CDT Appointment [facility] [address] [place] [id number] 01/06/2024 11:30 AM CDT Appointment [facility] [address] [place] [address] 01/13/2024 10:30 AM CDT Appointment [facility] [address] [place] [address] 01/13/2024 11:30 AM CDT Appointment [facility] [address] [place] [address] 01/19/2024 11:15 AM CDT Office Visit [facility] [address] [place] [phone] Yoselin Jorge, PhD, LP [address] [place] [address] Health Maintenance Due Date Last Done Comments COVID-19 vaccine series ( season) 2023 07/28/2023, 04/22/2022, 01/14/2021, Additional history exists Influenza for age 9-49 12/05/2023 , 12/10/2021, 01/28/2021, Additional history exists BMI (ht and wt on same day) for age 18+ 12/15/2023 12/14/2022, 12/01/2022, 11/12/2021, Additional history exists RSV vaccine for adults or (1 - Risk 1-dose series) 12/31/2023 Depression screening for age 12+ 11/23/2024 11/24/2023, 04/16/2023, 04/16/2023, Additional history exists Pap test for age [...] Procedure Name Priority Date/Time Associated Diagnosis Comments SCAN-ULTRASOUND REPORT 12/30/2023 12:00 AM CDT US OB BIOPHYSICAL PROFILE SINGLE W NST Routine 12/23/2023 10:06 AM CDT 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, antepartum Preexisting hypertension complicating , antepartum, second trimester Pulmonary embolism on long-term anticoagulation therapy (HC) Chronic hypertension affecting Maternal obesity, antepartum, second trimester Prior with demise and current in second trimester growth restriction, 500-749 grams Prior with demise Cannabis use disorder, moderate, dependence (HC) Prothrombin gene mutation (HC) Pulmonary embolus, right (HC) Other obesity affecting in second trimester SCAN-ULTRASOUND REPORT 12/21/2023 12:00 AM CDT URINALYSIS MICROSCOPIC STAT 12/17/2023 3:44 PM CDT UA W/ SEDIMENT EXAM REFLEXED PER CRITERIA STAT 12/17/2023 3:44 PM CDT US OB FOLLOW UP ANY TRI SINGLE TA Routine 12/08/2023 1:40 PM CDT 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, antepartum Preexisting hypertension complicating , antepartum, second trimester Pulmonary embolism on long-term anticoagulation therapy (HC) Chronic hypertension affecting Maternal obesity, antepartum, second trimester Prior with demise and current in second trimester growth restriction, 500-749 grams Prior with demise Cannabis use disorder, moderate, dependence (HC) Prothrombin gene mutation (HC) Pulmonary embolus, right (HC) Other obesity affecting in second trimester SCAN-ULTRASOUND REPORT 11/12/2023 12:00 AM CDT US OB FOLLOW UP ANY TRI SINGLE TA Routine 11/11/2023 10:57 AM CDT Chronic hypertension affecting Maternal obesity, antepartum, second trimester Prior with demise and current in second trimester TROPONIN T (HS) ONE TIME Timed 11/01/2023 4:29 PM CDT URINE CULTURE NATALIA 11/01/2023 3:40 PM CDT URINALYSIS MICROSCOPIC STAT 11/01/2023 3:40 PM CDT COVID-19 MOLECULAR Today 11/01/2023 [...] 11/01/2023 2:19 PM CDT URINALYSIS MICROSCOPIC STAT 10/22/2023 9:21 PM CDT UA W/ SEDIMENT EXAM REFLEXED PER CRITERIA STAT 10/22/2023 9:21 PM CDT US OB DETAIL ANATOMY SINGLE Routine 10/12/2023 10:02 AM CDT Supervision of high risk in first trimester Chronic hypertension affecting Prior with demise Other acute pulmonary embolism without acute cor pulmonale (HC) UA W/ SEDIMENT EXAM REFLEXED PER CRITERIA STAT 10/11/2023 6:47 PM CDT LC HIV-1/O/2, 4TH GENERATION Routine 04/08/2022 1:05 PM BAND CUTTER Supervision of high risk in first trimester LC HCV ANTIBODY RFX TO QUANT PCR Routine 04/08/2022 1:05 PM BAND CUTTER Supervision of high risk in first trimester HPV HIGH RISK Routine 12/10/2021 4:35 PM CDT Pap smear for cervical cancer screening from Last 3 Months or Most Recently Relevant to Health Maintenance Results * SCAN-ULTRASOUND REPORT (12/30/2023 12:00 AM CDT) Only the most recent of3 resultswithin the time period is included. Anatomical Region Laterality Modality Other Scanner OTHER * BPP with NST (CPT 16869.0) (12/23/2023 10:06 AM CDT) Anatomical Region Laterality Modality Ultrasound 12/23/2023 9:46 AM CDT Narrative 12/23/2023 10:20 AM CDT Referred By: KAJAL ??JAS ?? Indications Code 30 weeks gestation of Z3A.30 Maternal Obesity - BMI >35 (39) CHTN [...] 03%/Normal DVP and normal UAR/HC just above-2SD 12/02/23 MPP f/u growth: EFW 990 grams (11%/AC 24%) Cranial indices BPD HC both < 03%/Normal DVP and HC midrange between median and -2SD (NO EVIDENCE MICROCEPHALY) ?? IMPRESSIONS: ?? Intrauterine at 30w 6d. presentation is Breech. ?? Placental location: Posterior. Deepest Vertical Pocket of amniotic fluid: 4.98 ??cm. ? Reassuring biophysical profile 01/12. ?? RECOMMENDATIONS: -Continue surveillance with weekly biophysical profiles with NSTs. COMMENT: The patient was not seen by the Perinatologist today. ??The results of the ultrasound were given to the patient by the semiconductor manufacturing technician. New government regulations related to the Cures act require that this note be released to the patient immediately, sometimes before the referring provider has been contacted. Services Provided: Procedures Code BPP/NST 48630.0 Procedure Note Pineda Monzon, DO - 12/23/2023 Referred By: KAJAL ABRRERA MD IndicationsCode 30 weeks gestation of iincqswdmW7T.30 Maternal Obesity - BMI >35 (39) CHTN [...] 03%/Normal DVP and normal UAR/HC just above-2SD 12/02/23 MPP f/u growth: EFW 990 grams (11%/AC 24%) Cranial indices BPD HCboth < 03%/Normal DVP and HC midrange between median and -2SD (NO EVIDENCE MICROCEPHALY) IMPRESSIONS: Intrauterine at 30w 6d. presentation is Breech. Placental location: Posterior. Deepest Vertical Pocket of amniotic fluid: 4.98 cm. Reassuring biophysical profile 01/12. RECOMMENDATIONS: -Continue surveillance with weekly biophysical profiles withNSTs. COMMENT: The patient was not seen by the Perinatologist today. The results of theultrasound were given to the patient by the semiconductor manufacturing technician. New government regulations related to the Cures act requirethat this note be released to the patient immediately, sometimes before the referringprovider has been contacted. Services Provided: ProceduresCode [facility]/MGL54394.0 Wood Jimenez MD [place] * (ABNORMAL) URINALYSIS MICROSCOPIC (12/17/2023 3:44 PM CDT) Only the most recent of3 resultswithin the time period is included. RBC 0-2 0-2, None Seen /HPF 12/17/2023 4:13 PM CDT [facility] WBC 3-5 0-2, 3-5, None Seen /HPF 12/17/2023 4:13 PM CDT [facility] BACTERIA Moderate(A ) None Seen, Rare, Few Bacteria/ HPF 12/17/2023 4:13 PM CDT [facility] EPITHELIAL CELLS Many(A) None Seen, Few Epi/HPF 12/17/2023 4:13 PM CDT [facility] Urine URINE SPECIMEN / Unknown Non-Blood / Unknown 12/17/2023 3:44 PM CDT 12/17/2023 3:48 PM CDT Lakesha Mccray MD URINE [facility] [address] [place] [id number] * (ABNORMAL) Urinalysis W Reflex Microscopic if Positive (12/17/2023 3:44 PM CDT) Only the most recent of4 resultswithin the time period is included. COLOR Yellow Yellow Color 12/17/2023 3:54 PM CDT [facility] CLARITY Clear Clear Clarity 12/17/2023 3:54 PM T [facility] SPECIFIC GRAVITY,URINE >=1.030(A) 1.010, 1.015, 1.020, 1.025 12/17/2023 3:54 PM [facility] PH,URINE 6.0 6.0, 7.0, 8.0, 5.5, 6.5, 7.5, 8.5 12/17/2023 3:54 PM T [facility] UROBILINOGEN,QU ALITATIVE Normal Normal EU/dl 12/17/2023 3:54 PM [facility] PROTEIN, URINE Trace(A) Negative mg/dL 12/17/2023 3:54 PM [facility] GLUCOSE, URINE Negative Negative mg/dL 12/17/2023 3:54 PM [facility] KETONES,URINE Trace(A) Negative mg/dL 12/17/2023 3:54 PM [facility] BILIRUBIN,URINE Abnormal(A) Negative 12/17/19 3:54 PM [facility] Comment:A variety of metabol ites and/or medications may result in a positive bilirubin result. Clinical correlation is recommended. OCCULT BLOOD,URINE Negative Negative 12/17/2023 3:54 PM [facility] NITRITE Negative Negative 12/17/2023 3:54 PM T [facility] LEUKOCYTE ESTERASE Negative Negative 12/17/2023 3:54 PM [facility] Urine URINE SPECIMEN / Unknown Non-Blood / Unknown 12/17/2023 3:44 PM CDT 12/17/2023 3:48 PM CDT Lakesha Mccray MD URINE [facility] [address] [place] [address] * Growth Follow Up Any Trimester (CPT 79458) If BPP w/NST needed use Testing section for order (12/08/2023 1:40 PM CDT) Only the most recent of2 resultswithin the time period is included. Anatomical Region Laterality Modality , 2or 3 TRIMESTER Ultrasound 12/02/2023 10:1 9 AM CDT Narrative 12/02/2023 10:59 AM CDT Referred By: KAJAL ??JAS ?? Indications Code 27 weeks gestation of Z3A.27 Maternal Obesity - BMI >35 (39) CHTN [...] 03%/Normal DVP and normal UAR/HC just above-2SD 12/02/23 MPP f/u growth: EFW 990 grams (11%/AC 24%) Cranial indices BPD HC both < 03%/Normal DVP and HC midrange between median and -2SD (NO EVIDENCE MICROCEPHALY) IMPRESSIONS: Intrauterine at 27w 6d. presentation is Transverse, head to maternal left. EFW 990 grams, percentile: 11. AC 24% Cranial indices BPD HC both < 03%/Normal DVP and HC midrange between median and -2SD (NO EVIDENCE MICROCEPHALY) Deepest Vertical Pocket of amniotic fluid: 4.83 ??cm. ? No major anomalies identified on limited survey: ??Ductal arch imaged on today's exam. Appropriate asymmetric growth. Placental location: Posterior. There is no evidence of placenta previa. The transabdominal cervical length is not seen. ?? RECOMMENDATIONS: -Return to primary OB provider for continued care. -No medication changes are indicated: ??Continue LMWH as recommended -Begin weekly testing scheduled with [facility] (12/09/23) ?? -Present findings are reassuring. -A follow up ultrasound for growth is recommended in 6 weeks and is scheduled today with [facility] ?? COMMENT: The patient was seen by the Perinatologist today. ??The previous ultrasound and the records were reviewed. ??The results of today's ultrasound were communicated to the patient. New government regulations related to the Cures act require that this note be released to the patient immediately, sometimes before the referring provider has been contacted. ??A portion of the information was presented verbally to the patient. ??The remainder is submitted as background for the referring provider, to be discussed as needed. Medical Decision Making: Moderate Level 92940 ?Moderate number/complexity of problems including an undiagnosed new problem with uncertain prognosis or an acute illness with systemic symptoms for mother or fetus, etc. ?Moderate amount and/or complexity of Data reviewed and analyzed including review of prior ultrasound, ordering another ultrasound, and review of prior external notes, etc. ?Moderate risk of morbidity or mortality related to prescription drug treatment, elective major surgery, or social determinants of health, etc. Services Provided: Procedures Code FOLLOW UP GROWTH 41450.0 Procedure Note Wood Jimenez MD - 12/02/2023 Referred By: KAJAL BARRERA MD IndicationsCode 27 weeks gestation of [id number].27 Maternal Obesity - BMI >35 (39) CHTN - no meds Hx IUFD at 31w6d Hx of PE x2 [facility] consult Dr. Odell 08/09/23 Meds - Lovenox Therapeutic weight based dosing (100 milligramssubcutaneous 2x daily (goal trough LMW level 0.6-1.0 IU/mL)Prothrombin gen Declined serum screening Prothrombin gene mutation (heterozygous) 10/12/23 [facility] level II : EFW 328 grams (23%/AC 40% cranial indices BPD08%/HC < 03%) Normal anatomy/partial circumvallate placenta at superior edge/lakes 11/11/23 MPP f/u growth: EFW 624 grams (08%/AC 13%/Cranial indices BPD HCboth < 03%/Normal DVP and normal UAR/HC just above-2SD 12/02/23 MPP f/u growth: EFW 990 grams (11%/AC 24%) Cranial indices BPD HCboth < 03%/Normal DVP and HC midrange between median and -2SD (NO EVIDENCE MICROCEPHALY) IMPRESSIONS: Intrauterine at 27w 6d. presentation is Transverse, head to maternal left. EFW 990 grams, percentile: 11. AC 24% Cranial indices BPD HC both <03%/Normal DVP and HC midrange between median and -2SD (NO EVIDENCE MICROCEPHALY) Deepest Vertical Pocket of amniotic fluid: 4.83 cm. No major anomalies identified on limited survey: Ductal arch imaged ontoday's exam. Appropriate asymmetric growth. Placental location: Posterior. There is no evidence of placenta previa. The transabdominal cervical length is not seen. RECOMMENDATIONS: -Return to primary OB provider for continued care. -No medication changes are indicated: Continue LMWH as recommended -Begin weekly testing scheduled with [facility] (12/09/23) -Present findings are reassuring. -A follow up ultrasound for growth is recommended in 6 weeks and isscheduled today with [facility] COMMENT: The patient was seen by the Perinatologist today. The previous ultrasoundand the records were reviewed. The results of today's ultrasound werecommunicated to the patient. New government regulations related to the [employer] Cures act requirethat this note be released to the patient immediately, sometimes before the referringprovider has been contacted. A portion of the information was presented verbally to thepatient. The remainder is submitted as background for the referring provider, to be discussed asneeded. Medical Decision Making: Moderate Level 77354 Moderate number/complexity of problems including an undiagnosed newproblem with uncertain prognosis or an acute illness with systemic symptoms for mother or fetus,etc. Moderate amount and/or complexity of Data reviewed and analyzedincluding review of prior ultrasound, ordering another ultrasound, and review of prior externalnotes, etc. Moderate risk of morbidity or mortality related to prescription drugtreatment, elective major surgery, or social determinants of health, etc. Services Provided: ProceduresCode FOLLOW UP [id number] Wood Jimenez MD US * TROPONIN T (HS) ONE TIME (11/01/2023 4:29 PM CDT) TROPONIN T HS <6 6-10 ng/L ng/L 11/01/2023 4:49 PM CDT [facility] Blood BLOOD SPECIMEN / Unknown Venipuncture / Unknown 11/01/2023 4:29 PM CDT 11/01/2023 4:31 PM CDT Cassi Sweetutt DO CHEMI STRY Performing Organization Address [facility]/State/ZIP Co de Phone Number [facility] [address] [place] [address] * COVID-19 MOLECULAR (11/01/2023 3:40 PM CDT) COVID 19 [place] MOLECULAR Not detected Not detected 11/01/2023 4:15 PM CDT [facility] TESTING LABORATORY [facility] 11/01/2023 4:15 PM CDT [facility] Comment:Specimen submitted t o [facility] for testing. Other SPECIMEN FROM NASOPHARYNGEAL STRUCTURE / Unknown Non-Blood / Unknown 11/01/2023 3:40 PM CDT 11/01/2023 3:53 PM CDT Cassi Skinner DO MICRO BIOLOGY Performing Organization Address [facility]/ZIP Co de Phone Number [facility] [address] [place] [address] * URINE CULTURE (11/01/2023 3:40 PM CDT) Pathologist [facility] CULTURE <10,000 CFU/mL multiple organisms 11/02/2023 3:34 PM CDT [facility] Urine URINE SPECIMEN / Unknown Non-Blood / Unknown 11/01/2023 3:40 PM CDT 11/01/2023 3:53 PM CDT Cassi Skinner DO MICRO BIOLOGY [facility] [address] [place] [address], * XR CHEST 2 VIEWS PA AND [...] @ 11/01/2023 4:33:11 PM (Electronically Signed) Cassi Cheneyen Uriel Skinner DO GENER AL IMAGING * TROPONIN T (HS) ACUTE W/2HR REFLEX (11/01/2023 2:24 PM CDT) TROPONIN T HS <6 6-10 ng/L ng/L 11/01/2023 3:02 PM CDT [facility] Blood BLOOD SPECIMEN / Unknown Venipuncture / Unknown 11/01/2023 2:24 PM CDT 11/01/2023 2:29 PM CDT Narrative [facility] - 11/01/2023 3:02 PM CDT hs-cTnT [...] department patient population. Cassi Skinner DO CHEMI PAT [facility] [address] [place] [address] * EXTRA TUBE KEYES (11/01/2023 2:24 PM CDT) Blood BLOOD SPECIMEN / Unknown Extra Tube / Unknown 11/01/2023 2:24 PM CDT 11/01/2023 2:41 PM CDT Doctor Unknown LABORATORY [facility] [address] [facility] [place] [address] * (ABNORMAL) CBC W PLT NO DIFF (11/01/2023 2:24 PM CDT) WHITE BLOOD COUNT 13.3(H) 4.5 - 11.0 thou/cu mm 11/01/2023 2:37 PM CDT [facility] RED BLOOD COUNT 4.00 4.00 - 5.20 mil/cu mm 11/01/2023 2:37 PM [facility] HEMOGLOBIN 12.5 12.0 - 16.0 g/dL 11/01/2023 2:37 PM [facility] HEMATOCRIT 36.2 33.0 - 51.0 % 11/01/2023 2:37 PM [facility] MCV 91 80 - 100 fL 11/01/2023 2:37 PM [facility] MCH 31.3 26.0 - 34.0 pg 11/01/2023 2:37 PM [facility] MCHC 34.5 32.0 - 36.0 g/dL 11/01/2023 2:37 PM T [facility] RDW 14.0 11.5 - 15.5 % 11/01/2023 2:37 PM [facility] PLATELET COUNT 265 140 - 440 thou/cu mm 11/01/2023 2:37 PM [facility] MPV 9.9 6.5 - 11.0 fL 11/01/2023 2:37 PM [facility] Blood BLOOD SPECIMEN / Unknown Venipuncture / Unknown 11/01/2023 2:24 PM CDT 11/01/2023 2:29 PM CDT Cassi Skinner DO HEMAT OLOGY Performing Organization Address [facility] de Phone Number [facility] [address] [place] [address] * PRO-BNP (11/01/2023 2:24 PM CDT) PRO-BNP 118 <125 pg/mL 11/01/2023 3:02 PM CDT [facility] Blood BLOOD SPECIMEN / Unknown Venipuncture / Unknown 11/01/2023 2:24 PM CDT 11/01/2023 2:29 PM CDT Narrative [facility] - 11/01/2023 3:02 PM CDT The [...] failure. ? Cassi Skinner DO SEND OUTS [facility] [address] [place] [address] * (ABNORMAL) BASIC METABOLIC PANEL (11/01/2023 2:24 PM CDT) SODIUM 139 136 - 145 mmol/L 11/01/2023 3:02 PM T [facility] POTASSIUM 3.4(L) 3.5 - 5.1 mmol/L 11/01/2023 3:02 PM [facility] CHLORIDE 103 98 - 107 mmol/L 11/01/2023 3:02 PM [facility] CO2,TOTAL 24 22 - 29 mmol/L 11/01/2023 3:02 PM [facility] ANION GAP 12 5 - 18 11/01/2023 3:02 PM [facility] GLUCOSE 86 70 - 99 mg/dL 11/01/2023 3:02 PM [facility] CALCIUM 9.5 8.6 - 10.0 mg/dL 11/01/2023 3:02 PM [facility] BUN 7 6 - 20 mg/dL 11/01/2023 3:02 PM [facility] CREATININE 0.44(L) 0.50 - 0.90 mg/dL 11/01/2023 3:02 PM [facility] BUN/CREAT RATIO 16 10 - 20 3:02 PM [facility] eGFR >90 >90 mL/min/1.7 3m2 11/01/2023 3:02 PM [facility] Comment:As of 2021, eG FR is calculated by the CKD-EPI creatinine equation without race adjustment. ??eGFR can be influenced by muscle mass, exercise, and diet. ??The reported eGFR is an estimation only and is only applicable if the renal function is stable. Blood BLOOD SPECIMEN / Unknown Venipuncture / Unknown 11/01/2023 2:24 PM CDT 11/01/2023 2:29 PM CDT Cassi Cuellarmer Plutmark DO CHEMI STRY Performing Organization Address [facility] de Phone Number [facility] [address] [place] [address] * EKG 12 LEAD (11/01/2023 2:19 PM CDT) Interpretation Normal sinus rhythm Moderate voltage criteria [...] NOW QTc 457 ms BEYOND NOW P [place] 50 degrees BEYOND NOW R [place] -15 degrees BEYOND NOW T [place] 17 degrees BEYOND NOW 11/01/2023 2:19 PM CDT 11/01/2023 9:10 PM CDT Csasi Vazquez Uriel Sweetutmark DO EKG O RD Performing Organization Address [facility] de Phone Number BEYOND NOW [place], [place] * Detailed Anatomy Single (CPT 99689) (10/12/2023 10:02 AM CDT) Anatomical Region Laterality [...] directed to schedule at the front office developer on the way out, or to call [facility] within 2 business days to schedule follow [...] above. New government regulations related to the Century Cures act require that this note be released to the patient immediately, sometimes before the referring provider has been contacted. ??A portion of the information was presented verbally to the patient. ??The remainder is submitted as background for the referring provider, to be discussed as needed. Medical Decision Making: Moderate Level 14167 ?Moderate number/complexity of problems including an undiagnosed new problem with uncertain prognosis ?Moderate amount and/or complexity of Data reviewed and analyzed including review of prior ultrasound, ordering another ultrasound, and review of prior external notes, etc. ?Moderate risk of morbidity or mortality related to underlying conditions Services Provided: Procedures Code DETAIL ANATOMY 18754.0 Procedure Note Pineda Monzon, DO - 10/12/2023 Referred By: KAJAL BARRERA MD INDICATION:BMI greater than 30.2 IndicationsCode 20 weeks gestation of [id number] Maternal Obesity - BMI >35 (39) CHTN [...] directed to schedule at the front office developer on the way out, or to callMPP [...] discussed asneeded. Medical Decision Making: Moderate Level 31521 Moderate number/complexity of problems including an undiagnosed newproblem with uncertain prognosis Moderate amount and/or complexity of Data reviewed and analyzedincluding review of prior ultrasound, ordering another ultrasound, and review of prior externalnotes, etc. Moderate risk of morbidity or mortality related to underlyingconditions Services Provided: ProceduresCode DETAIL [id number] Janna Odell MD US * LC HCV ANTIBODY RFX TO QUANT PCR (04/08/2022 1:05 PM BAND CUTTER) HCV Ab <0.1 0.0 - 0.9 s/co ratio 04/10/2022 4:08 PM BAND CUTTER [facility] Blood BLOOD SPECIMEN / Unknown Venipuncture / Unknown 04/08/2022 1:05 PM BAND CUTTER 04/08/2022 1:08 PM BAND CUTTER Narrative [facility] - 04/10/2022 4:08 PM BAND CUTTER Performed at: ??01 - [facility] [address] [place] [address] ??[id number] Line Staker: Zafar Lama MD, Phone: ??[phone] Kajal Barrera MD LABORATORY [facility]) [facility] [place] [address], * LC HIV-1/O/2, 4TH GENERATION (04/08/2022 1:05 PM BAND CUTTER) HIV Scr 4th Gen Non Reactive Non Reactive 04/10/2022 9:09 AM BAND CUTTER [facility] ([facility]) Comment: HIV Negative HIV-1/HIV-2 antibodies and HIV-1 p24 antigen were NOT detected. There is no laboratory evidence of HIV infection. Blood BLOOD SPECIMEN / Unknown Venipuncture / Unknown 04/08/2022 1:05 PM BAND CUTTER 04/08/2022 1:08 PM BAND CUTTER Narrative [facility] ([facility]) - 04/10/2022 9:09 AM BAND CUTTER Performed at: ??[address] ??[id number] Line Staker: Zafar Lama MD, Phone: ??[phone] Kajal Barrera MD LABORATORY [facility] ([facility]) [address] [place] [address] * HPV HIGH RISK (12/10/2021 4:35 PM CDT) Pathologist [facility] TYPE 16 Negative Negative 12/15/2021 5:37 PM CDT [facility] TYPE 18 Negative Negative 12/15/2021 5:37 PM CDT [facility] OTHER HIGH RISK TYPES Negative Negative 12/15/2021 5:37 PM CDT [facility] Other (Cervical) Non-Blood / Unknown 12/10/2021 4:35 PM CDT 12/11/2021 4:11 PM CDT Narrative [facility] - 12/15/2021 5:37 PM CDT HPV types 16, 18, 31, 33, 35, 39, 45, 51, 52, 56, 58, 59, 66 and 68 DNA were undetectable or below the pre-set threshold. Methodology: [employer] 4800 HPV Test Kajal Barrera MD MICROBIOLOGY [facility] [address] [place] [address], from Last 3 Months or Most Recently [...] Comments Code Status Discussion: Discussed Care Teams Chassis Wirer Relationship Specialty Start Date End Date Erma Mina MD [address] [place] [address] PCP - General Obstetrics and Gynecology 12/02/23 Sarwat Miles MD [address] [place] [address] Consulting Physician Surgery - General 06/09/19 Lamar Mayer RN [address] [place] [address] Registered Nurse Registered Nurse 06/09/[address] [place] [facility] [address] [place] [address] Registered Dietitian Operations Support Professionals 06/09/19 Kajal Barrera MD [address] [place] [address] Referring Provider Family Practice 07/15/23
--- OUTSIDE RECORDS SUMMARY | 2024-01-04 09:51 | XMS_ITS | Clinical Summary ---
Author Organization [facility] Address [address] [place] [address] Care Team Providers Care Plastic Tile Setter Name Role Phone Doctor, No Primary Care [...] Maternal Grandmother Diabetes Maternal Grandmother Cancer Mother clip wrapper cancer of un known origin to patient [...] Comments Blood Pressure 131/90 02/19/2022 6:00 PM CHEMISTRY ACCOUNT MANAGER Pulse 79 02/19/2022 6:00 PM CHEMISTRY ACCOUNT MANAGER Temperature 36.5 ??C (97.7 ??F) 02/19/2022 4:09 PM CS T Respiratory Rate 21 02/19/2022 6:00 PM CHEMISTRY ACCOUNT MANAGER Oxygen Saturation 99% 02/19/2022 6:00 PM CHEMISTRY ACCOUNT MANAGER Inhaled Oxygen Concentration - - Weight 112.5 kg (248 lb) 12/01/2012 10:03 AM CDT Height 162.6 cm (5' 4) 12/01/2012 10:03 AM CDT Body Mass Index 42.57 12/01/2012 10:03 AM CDT Plan of Treatment Health Maintenance Due Date Last Done Comments Hepatitis C Screening 1988 Pap Smear 1988 Anxiety Screening (NARGIS-2) 1989 Depression Assessment (PHQ-2) 1989 COVID-19 Vaccine ( season) 2023 01/14/2021, 12/23/2020 Influenza Vaccine (#1) 2023 2, 01/28/2021, 03/13/2020, Additional history exists Adult Tetanus Booster 01/29/2027 01/29/2017, 013 RSV Vaccines (1 - 1-dose 75+ series) 2063 Pneumococcal <65 Aged Out No longer e ligible based on patient's age to complete this topic Advance Directives For more information, please contact: [phone] * Full Code (Latest Code Status on File) Date Activated Date Inactivated Comments 12/02/2012 1:52 PM 12/05/2012 6:57 PM Question Answer Comments How was code status determined? Patient Care Teams Plastic Tile Setter Relationship Specialty Start Date End Date Doctor, No No ad PCP - General Radiology 02/19/22
--- OUTSIDE RECORDS SUMMARY | 2024-01-04 09:51 | XMS_ITS | Referral Summary ---
Author Organization [facility] Address [address] [place] [address] Care Team Providers Care Ballistics Expert Name Role Phone Doctor, No Primary Care [...] Comments Blood Pressure 131/90 02/19/2022 6:00 PM FUEL TANK SEALER AND TESTER Pulse 79 02/19/2022 6:00 PM FUEL TANK SEALER AND TESTER Temperature 36.5 ??C (97.7 ??F) 02/19/2022 4:09 PM CS T Respiratory Rate 21 02/19/2022 6:00 PM FUEL TANK SEALER AND TESTER Oxygen Saturation 99% 02/19/2022 6:00 PM FUEL TANK SEALER AND TESTER Inhaled Oxygen Concentration - - Weight 112.5 kg (248 lb) 12/01/2012 10:03 AM CDT Height 162.6 cm (5' 4) 12/01/2012 10:03 AM CDT Body Mass Index 42.57 12/01/2012 10:03 AM CDT Plan of Treatment Not on file Advance Directives For more information, please contact: [phone] * Full Code (Latest Code Status on File) Date Activated Date Inactivated Comments 12/02/2012 1:52 PM 12/05/2012 6:57 PM Question Answer Comments How was code status determined? Patient Care Teams Ballistics Expert Relationship Specialty Start Date End Date Doctor, No No ad PCP - General Radiology 02/19/22
== END 2024-01-04 09:47 | disposition home or self-care (01) ==
LOC: US 09:47
PROVIDERS: PCP Family Medicine; Visit Provider Obstetrics & Gynecology
DX: O10.913 Unspecified pre-existing hypertension complicating pregnancy, third trimester (principal); O36.5930 Maternal care for other known or suspected poor fetal growth, third trimester, not applicable or unspecified; Z3A.31 31 weeks gestation of pregnancy
CPT/HCPCS: 76816; 76819; T1013

== ENCOUNTER 2024-01-11 10:21 | Outpatient (CLI) | payer MEDICAID, SELFPAY ==
--- NOTE | 2024-01-11 10:15 | CRLHL7_ITS ---
For Patients: As a result of the Century Cures Act, medical imaging exams and procedure reports are released immediately into your electronic medical record. You may view this report before your referring provider. If you have questions, please contact your health care provider. INDICATION: IUGR, CHTN COMPARISON: none TECHNIQUE: Real time hooks scale imaging of the fetus was performed. Without non-stress testing. FINDINGS: Sonographic imaging demonstrates a single living intrauterine gestation. Fetus demonstrates a regular cardiac rate of 129 beats per minute. Fetus has a vertex position. The amniotic fluid volume appears normal and there is a single deepest pocket measurement of 4.1 cm. The fetus was active and demonstrated normal breathing movements. There was normal flexion and extension of the trunk and extremities. IMPRESSION: Normal biophysical profile score of 8 out of 8. Dictated by Logan Felix MD @ 01/11/2024 12:23:22 PM (Electronically Signed)
--- OUTSIDE RECORDS SUMMARY | 2024-01-11 11:31 | XMS_ITS | Referral Summary ---
Author Organization [facility] Address [address] [place] [address] Care Team Providers Care Etl Informatica Architect Name Role Phone Melchor, [facility] Primary Care Provider Kristy Jack MD Unavailable [phone] Allergies No known active allergies Medications [...] CDT ABSTRACT HIV Routine 04/28/2022 2:58 PM HYDRAULIC SPINNER PAP IMAGED THIN LAYER SCREEN Routine 08/05/2012 [...] LAB - BLOOD ORDERABL ES UR LABORATORY [facility] Acute Care Lab [address] [facility], [address] [place] [address] [phone] * Hepatitis C antibody (10/13/2022 1:14 PM [...] UM SPECIALTY CORE/PROT/ENDO UM Specialty Core/Prot/Endo [address] [facility], [address] [phone] * ABSTRACT HIV (04/28/2022 2:58 PM HYDRAULIC SPINNER) HIV 1&2 EXT Non-Reacti ve [facility] Comment:SEE SCAN FOR REFEREN CE RANGE Blood 04/28/2022 2:58 PM HYDRAULIC SPINNER Narrative [facility] - 04/28/2022 2:[address] [facility] LAB RESULTS Provider Outside LAB - HIM EXTERNAL R ESULT Performing Organization Address City/[facility]/ZIP Co de Phone Number [address] [phone] * PAP imaged thin layer, screen (08/05/2012 12:00 AM CDT) PAP GUILLERMINA Manzo Report Patient Name: KAYLEIGH LOCKWOOD MR#: [id number] Specimen #: [id number] Collected: 08/05/2012 Received: 08/08/2012 Reported: 08/09/2012 13:41 [...] DC Thayer (ASCP) Processed and screened at [facility] CLINICAL HISTORY: LMP: 04/21/2012 , Papanicolaou Test Limitations: ??Cervical cytology is a screening test with limited sensitivity; regular screening is critical for cancer prevention; Pap tests are primarily effective for the diagnosis/preventi on of squamous cell carcinoma, not adenocarcinomas or other cancers. TESTING LAB LOCATION: [facility] [address] [place], [place] ??[address] COLLECTION SITE: Client: ??[facility] Location: [facility] (R) COPATH Cytologic material (specimen) 08/05/2012 08/08/2012 12:52 PM CDT Berny Lopez MD LAB - OPTIME C LINICAL SPECIMEN COPATH from Last 3 Months or Most Recently Relevant to Health Maintenance Advance Directives For more information, please contact: [phone] * Full Code (Latest Code Status on File) Date Activated Date Inactivated Comments 10/13/2022 12:39 PM 10/16/2022 4:16 PM All basic a nd advanced life-sustaining interventions are performed as appropriate Question Answer Comments Code status determined by: Unable to dis cuss and no AD/POLST on file; continue PREVIOUSLY ORDERED code status Care Teams Etl Informatica Architect Relationship Specialty Start Date End Date [facility], [address] [address] PCP - General 09/25/18 Kristy Jack MD [address] [facility] [address] [place] [address] Assigned OBGYN Provider 07/25/22
--- OUTSIDE RECORDS SUMMARY | 2024-01-11 11:31 | XMS_ITS | Clinical Summary ---
Author Organization [place] Address [address] [place] [address] Care Team Providers Care Or Assistant Name Role Phone Clinic, [facility] Primary Care Provider Kristy Jack MD Unavailable [phone] Allergies No known active allergies Medications [...] 01/26/2017 Bipolar disorder 01/25/2017 Overview: Diagnosed in [place] Mixed obsessional thoughts and acts 01/25/2017 Overview: Diagnosed in [place] Labor and delivery indication for care or [...] Administration Dates Next Due COVID-19 MONOVALENT 12+ ([employer]) 01/14/2021,12/05 Influenza Vaccine >6 months,quad, PF ,12/10/2021,01/28/2021, [...] CDT ABSTRACT HIV Routine 04/28/2022 2:58 PM DIESEL ENGINE II PIPE FITTER PAP IMAGED THIN LAYER SCREEN Routine 08/05/2012 [...] LAB - BLOOD ORDERABL ES UR LABORATORY [facility] Acute Care Lab [address] [facility], [address] [place] [address] [phone] * Hepatitis C antibody (10/13/2022 1:14 PM [...] UM SPECIALTY CORE/PROT/ENDO UM Specialty Core/Prot/Endo [address] [facility], [address] [phone] * ABSTRACT HIV (04/28/2022 2:58 PM DIESEL ENGINE II PIPE FITTER) HIV 1&2 EXT Non-Reacti ve [facility] Comment:SEE SCAN FOR REFEREN CE RANGE Blood 04/28/2022 2:58 PM DIESEL ENGINE II PIPE FITTER Narrative [facility] - 04/28/2022 2:58 PM DIESEL ENGINE II PIPE FITTER [facility] LAB RESULTS Provider Outside LAB - HIM EXTERNAL R ESULT Performing Organization Address City/[facility]/ZIP Co de Phone Number [address] [phone] * PAP imaged thin layer, screen (08/05/2012 12:00 AM CDT) PAP GUILLERMINA Manzo Report Patient Name: KAYLEIGH LOCKWOOD MR#: [id number] Specimen #: [id number] Collected: 08/05/2012 Received: 08/08/2012 Reported: 08/09/2012 13:41 [...] and screened at [facility] CLINICAL HISTORY: LMP: 04/21/2012 , Papanicolaou Test Limitations: ??Cervical cytology is a screening test with limited sensitivity; regular screening is critical for cancer prevention; Pap tests are primarily effective for the diagnosis/preventi on of squamous cell carcinoma, not adenocarcinomas or other cancers. TESTING LAB LOCATION: [facility] [address] [place], [place] ??[address] COLLECTION SITE: Client: ??[facility] Location: [facility] (R) COPATH Cytologic material (specimen) 08/05/2012 08/08/2012 12:52 PM CDT Berny Lopez MD LAB - OPTIME C LINICAL SPECIMEN COPATH from Last 3 Months or Most Recently Relevant to Health Maintenance Advance Directives For more information, please contact: [phone] * Full Code (Latest Code Status on File) Date Activated Date Inactivated Comments 10/13/2022 12:39 PM 10/16/2022 4:16 PM All basic a nd advanced life-sustaining interventions are performed as appropriate Question Answer Comments Code status determined by: Unable to dis cuss and no AD/POLST on file; continue PREVIOUSLY ORDERED code status Care Teams Or Assistant Relationship Specialty Start Date End Date [facility], [address] [address] PCP - General 09/25/18 Kristy Jack MD [address] [facility] [address] [place] [address] Assigned OBGYN Provider 07/25/22
--- OUTSIDE RECORDS SUMMARY | 2024-01-11 11:31 | XMS_ITS | Clinical Summary ---
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 (ABNORMAL) URINALYSIS MICROSCOPIC (12/17/2023 3:44 PM CDT) Only the most recent of3 resultswithin the time period is included. RBC 0-2 0-2, None Seen /HPF 12/17/2023 4:13 PM CDT [facility] WBC 3-5 0-2, 3-5, None Seen /HPF 12/17/2023 4:13 PM CDT [facility] BACTERIA Moderate(A ) None Seen, Rare, Few Bacteria/ HPF 12/17/2023 4:13 PM CDT [facility] EPITHELIAL CELLS Many(A) None Seen, Few Epi/HPF 12/17/2023 4:13 PM CDT [facility] Urine URINE SPECIMEN / Unknown Non-Blood / Unknown 12/17/2023 3:44 PM CDT 12/17/2023 3:48 PM CDT Lakesha Mccray MD URINE [facility] [address] [place] [address] * (ABNORMAL) Urinalysis W Reflex Microscopic if Positive (12/17/2023 3:44 PM CDT) Only the most recent of4 resultswithin the time period is included. COLOR Yellow Yellow Color 12/17/2023 3:54 PM CDT [facility] CLARITY Clear Clear Clarity 12/17/2023 3:54 PM CDT [facility] SPECIFIC GRAVITY,URINE >=1.030(A) 1.010, 1.015, 1.020, 1.025 12/17/2023 3:54 PM CDT [facility] PH,URINE 6.0 6.0, 7.0, 8.0, 5.5, 6.5, 7.5, 8.5 12/17/2023 3:54 PM CDT [facility] UROBILINOGEN,QU ALITATIVE Normal Normal EU/dl 12/17/2023 3:54 PM CDT [facility] PROTEIN, URINE Trace(A) Negative mg/dL 12/17/2023 3:54 PM CDT [facility] GLUCOSE, URINE Negative Negative mg/dL 12/17/2023 3:54 PM CDT [facility] KETONES,URINE Trace(A) Negative mg/dL 12/17/2023 3:54 PM CDT [facility] BILIRUBIN,URINE Abnormal(A) Negative 12/17/19 3:54 PM CDT [facility] Comment:A variety of metabol ites and/or medications may result in a positive bilirubin result. Clinical correlation is recommended. OCCULT BLOOD,URINE Negative Negative 12/17/2023 3:54 PM CDT [facility] NITRITE Negative Negative 12/17/2023 3:54 PM CDT [facility] LEUKOCYTE ESTERASE Negative Negative 12/17/2023 3:54 PM CDT [facility] Urine URINE SPECIMEN / Unknown Non-Blood / Unknown 12/17/2023 3:44 PM CDT 12/17/2023 3:48 PM CDT Lakesha Mccray MD URINE [facility] [address] [place] [address] * Growth Follow Up Any Trimester (CPT 25807) If BPP w/NST needed use Testing section [...] serum screening Prothrombin gene mutation (heterozygous) 10/12/23 [facility] level II : ??EFW 328 grams (23%/AC [...] as recommended -Begin weekly testing scheduled with [facility] (12/09/23) ?? -Present findings are reassuring. -A follow up ultrasound for growth is recommended in 6 weeks and is scheduled today with [facility] ?? COMMENT: The patient was seen by [...] as needed. Medical Decision Making: Moderate Level 22108 ?Moderate number/complexity of problems including an undiagnosed [...] Services Provided: Procedures Code FOLLOW UP GROWTH 78031.0 Procedure Note Wood Jimenez MD - 12/02/2023 Referred By: KAJAL BARRERA MD IndicationsCode 27 weeks gestation of [id number].27 Maternal Obesity - BMI >35 (39) CHTN [...] as recommended -Begin weekly testing scheduled with [facility] (12/09/23) -Present findings are reassuring. -A follow up ultrasound for growth is recommended in 6 weeks and isscheduled today with [facility] COMMENT: The patient was seen by the [...] discussed asneeded. Medical Decision Making: Moderate Level 57830 Moderate number/complexity of problems including an undiagnosed [...] health, etc. Services Provided: ProceduresCode FOLLOW UP [id number] Wood Jimenez MD * TROPONIN T (HS) ONE TIME (11/01/2023 4:29 PM CDT) TROPONIN T HS <6 6-10 ng/L ng/L 11/01/2023 4:49 PM CDT [facility] Blood BLOOD SPECIMEN / Unknown Venipuncture / Unknown 11/01/2023 4:29 PM CDT 11/01/2023 4:31 PM CDT Cassi Skinner DO CHEMI STRY [facility] [address] [place] [address] * COVID-19 MOLECULAR (11/01/2023 3:40 PM CDT) Pathologist [facility] COVID 19 [facility] MOLECULAR Not detected Not detected 11/01/2023 4:15 PM CDT [facility] TESTING LABORATORY [facility] Laboratory 11/01/2023 4:15 PM CDT [facility] Comment:Specimen submitted t o [facility] for testing. Other SPECIMEN FROM NASOPHARYNGEAL STRUCTURE / Unknown Non-Blood / Unknown 11/01/2023 3:40 PM CDT 11/01/2023 3:53 PM CDT Cassi Skinner DO MICRO BIOLOGY Performing Organization Address [facility] Co de Phone Number [facility] [address] [place] [address] * URINE CULTURE (11/01/2023 3:40 PM CDT) [facility] CULTURE <10,000 CFU/mL multiple organisms 11/02/2023 3:[address] [facility] Urine URINE SPECIMEN / Unknown Non-Blood / Unknown 11/01/2023 3:40 PM CDT 11/01/2023 3:53 PM CDT Cassi Skinner DO MICRO BIOLOGY Performing Organization Address City/[facility]/ZIP Co de Phone Number [facility] [address] [place] [address], * XR CHEST 2 VIEWS PA AND [...] @ 11/01/2023 4:33:11 PM (Electronically Signed) Cassi Taylor Uriel Plutmark DO GENER AL IMAGING * TROPONIN T (HS) ACUTE W/2HR REFLEX (11/01/2023 2:24 PM CDT) TROPONIN T HS <6 6-10 ng/L ng/L 11/01/2023 3:02 PM CDT [facility] Blood BLOOD SPECIMEN / Unknown Venipuncture / Unknown 11/01/2023 2:24 PM CDT 11/01/2023 2:29 PM CDT Narrative [facility] - 11/01/2023 3:02 PM CDT hs-cTnT [...] department patient population. Cassi Skinner DO CHEMI NATALIEY Performing Organization Address [facility]/ZIP Co de Phone Number [facility] [address] [place] [address] * EXTRA TUBE KEYES (11/01/2023 2:24 PM CDT) Blood BLOOD SPECIMEN / Unknown Extra Tube / Unknown 11/01/2023 2:24 PM CDT 11/01/2023 2:41 PM CDT Doctor Unknown LABORATORY Performing Organization Address [facility]/ZIP Co de Phone Number [facility] [address] [place] [address] * (ABNORMAL) CBC W PLT NO DIFF (11/01/2023 2:24 PM CDT) Pathologist [facility] WHITE BLOOD COUNT 13.3(H) 4.5 - 11.0 thou/cu mm 11/01/2023 2:37 PM CDT [facility] RED BLOOD COUNT 4.00 4.00 - 5.20 mil/cu mm 11/01/2023 2:37 PM CDT [facility] HEMOGLOBIN 12.5 12.0 - 16.0 g/dL 11/01/2023 2:37 PM CDT [facility] HEMATOCRIT 36.2 33.0 - 51.0 % 11/01/2023 2:37 PM CDT [facility] MCV 91 80 - 100 fL 11/01/2023 2:37 PM CDT [facility] MCH 31.3 26.0 - 34.0 pg 11/01/2023 2:37 PM CDT [facility] MCHC 34.5 32.0 - 36.0 g/dL 11/01/2023 2:37 PM CDT [facility] RDW 14.0 11.5 - 15.5 % 11/01/2023 2:37 PM CDT [facility] PLATELET COUNT 265 140 - 440 thou/cu mm 11/01/2023 2:37 PM CDT [facility] MPV 9.9 6.5 - 11.0 fL 11/01/2023 2:37 PM CDT [facility] Blood BLOOD SPECIMEN / Unknown Venipuncture / Unknown 11/01/2023 2:24 PM CDT 11/01/2023 2:29 PM CDT Cassi Skinner DO HEMAT OLOGY [facility] [address] [place] [address] * PRO-BNP (11/01/2023 2:24 PM CDT) [facility] PRO-BNP 118 <125 pg/mL 11/01/2023 3:02 PM CDT [facility] Blood BLOOD SPECIMEN / Unknown Venipuncture / Unknown 11/01/2023 2:24 PM CDT 11/01/2023 2:29 PM CDT [facility]ATORY - 11/01/2023 3:02 PM CDT The [...] failure. ? Cassi Skinner DO SEND OUTS [facility] [address] [place] [address] * (ABNORMAL) BASIC METABOLIC PANEL (11/01/2023 2:24 PM CDT) [facility] SODIUM 139 136 - 145 mmol/L 11/01/2023 3:02 PM CDT [facility] POTASSIUM 3.4(L) 3.5 - 5.1 mmol/L 11/01/2023 3:[address] [facility] CHLORIDE 103 98 - 107 mmol/L 11/01/2023 3:[address] [facility] CO2,TOTAL 24 22 - 29 mmol/L 11/01/2023 3:[address] [facility] ANION GAP 12 5 - 18 11/01/2023 3:[address] [facility] GLUCOSE 86 70 - 99 mg/dL 11/01/2023 3:[address] [facility] CALCIUM 9.5 8.6 - 10.0 mg/dL 11/01/2023 3:[address] [facility] BUN 7 6 - 20 mg/dL 11/01/2023 3:[address] [facility] CREATININE 0.44(L) 0.50 - 0.90 mg/dL 11/01/2023 3:[address] [facility] BUN/CREAT RATIO 16 10 - 20 3:[address] [facility] eGFR >90 >90 mL/min/1.7 3m2 11/01/2023 3:[address] [facility] Comment:As of 2021, eG FR [...] PM CDT Cassi Skinner DO CHEMI STRY [facility] [address] [place], [place] [id number] * EKG 12 LEAD (11/01/2023 2:19 PM [...] NOW QTc 457 ms BEYOND NOW P [place] 50 degrees BEYOND NOW R [place] -15 degrees BEYOND NOW T [place] 17 degrees BEYOND NOW 11/01/2023 2:19 PM CDT 11/01/2023 9:10 PM CDT Cassi Vazquez Uriel Plutt DO EKG O RD BEYOND NOW [place], [place] * Detailed Anatomy Single (CPT 50390) (10/12/2023 10:02 AM CDT) Anatomical Region Laterality [...] directed to schedule at the front office attendant on the way out, or to call [facility] within 2 business days to schedule follow [...] as needed. Medical Decision Making: Moderate Level 45183 ?Moderate number/complexity of problems including an undiagnosed new problem with uncertain prognosis ?Moderate amount and/or complexity of Data reviewed and analyzed including review of prior ultrasound, ordering another ultrasound, and review of prior external notes, etc. ?Moderate risk of morbidity or mortality related to underlying conditions Services Provided: Procedures Code DETAIL ANATOMY 74536.0 Procedure Note Pineda Monzon, DO - 10/12/2023 Referred By: KAJAL BARRERA MD INDICATION:BMI greater than 30.2 IndicationsCode 20 weeks gestation of [id number].20 Maternal Obesity - BMI >35 (39) CHTN [...] directed to schedule at the front office attendant on the way out, or to callMPP [...] discussed asneeded. Medical Decision Making: Moderate Level 35563 Moderate number/complexity of problems including an undiagnosed newproblem with uncertain prognosis Moderate amount and/or complexity of Data reviewed and analyzedincluding review of prior ultrasound, ordering another ultrasound, and review of prior externalnotes, etc. Moderate risk of morbidity or mortality related to underlyingconditions Services Provided: ProceduresCode DETAIL [id number] Janna Odell MD [place] * LC HCV ANTIBODY RFX TO QUANT PCR (04/08/2022 1:05 PM BORDER PATROL AGENT) Pathologist [facility] HCV Ab <0.1 0.0 - 0.9 s/co ratio 04/10/2022 4:08 PM BORDER PATROL AGENT [facility] ([facility]) Blood BLOOD SPECIMEN / Unknown Venipuncture / Unknown 04/08/2022 1:05 PM BORDER PATROL AGENT 04/08/2022 1:08 PM BORDER PATROL AGENT Narrative [facility] ([facility]) - 04/10/2022 4:08 PM BORDER PATROL AGENT Performed at: ??01 - [address] ??[id number] Rotor Winder: Zafar Lama MD, Phone: ??[phone] Kajal Barrera MD LABORATORY [facility] ([facility]) [address] [place] [address], * LC HIV-1/O/2, 4TH GENERATION (04/08/2022 1:05 PM BORDER PATROL AGENT) Pathologist [facility] HIV Scr 4th Gen Non Reactive Non Reactive 04/10/2022 9:09 AM BORDER PATROL AGENT [facility] ([facility]) Comment: HIV Negative HIV-1/HIV-2 antibodies and HIV-1 p24 antigen were NOT detected. There is no laboratory evidence of HIV infection. Blood BLOOD SPECIMEN / Unknown Venipuncture / Unknown 04/08/2022 1:05 PM BORDER PATROL AGENT 04/08/2022 1:08 PM BORDER PATROL AGENT N[facility]ative [facility]) - 04/10/2022 9:09 AM BORDER PATROL AGENT Performed at: ??01 - Lab[address] ??[id number] Rotor Winder: Zafar Lama MD, Phone: ??[phone] Kajal Barrera MD [facility]ORY [facility]) [facility] [place] * HPV HIGH RISK (12/10/2021 4:35 PM CDT) TYPE 16 Negative Negative 12/15/2021 5:[address] [facility] TYPE 18 Negative Negative 12/15/2021 5:[address] [facility] OTHER HIGH RISK TYPES Negative Negative 12/15/2021 5:[address] [facility] Other (Cervical) Non-Blood / Unknown 12/10/2021 4:35 PM CDT 12/11/2021 4:[address] [facility] - 12/15/2021 5:37 PM CDT HPV types 16, 18, 31, 33, 35, 39, 45, 51, 52, 56, 58, 59, 66 and 68 DNA were undetectable or below the pre-set threshold. Methodology: Jewels Irma 4800 HPV Test Kajal Barrera MD MICROBIOLOGY [facility] [address] [place] [address], [place] from Last 3 Months or Most [...] Comments Code Status Discussion: Discussed Care Teams Pyridine Operator Relationship Specialty Start Date End Date Erma Mina MD [address] [place] [address] PCP - General Obstetrics and Gynecology 12/02/23 Sarwat Miles MD [address] [facility] [address] [place] [address] Consulting Physician Surgery - General 06/09/19 Lamar Mayer RN [address] [facility] [address] [place] [address] Registered Nurse Registered Nurse 06/09/[address] [facility] [address] [place] [address] Registered Dietitian Supervisor [place] 06/09/19 Kajal Barrera MD [address] [place] [address] Referring Provider Family Practice 07/15/23
--- OUTSIDE RECORDS SUMMARY | 2024-01-11 11:31 | XMS_ITS | Continuity of Care Document ---
Author Organization [facility] Address [address] [address] [place] [address] Phone Care Team Providers Care Moose Hunter Name Role Phone No Information Unavailable Unavailable [...] Diagnoses Date Provider Providers Copied on Encounter [facility], [address] [address], [place], [id number], [place] tel:[phone] No Information No Information Offic/outpt E&m Estab Mod-hi 2 [facility], [address] [address], [place], [id number], [place] tel:[phone] [facility] Comment (chief complaint) Irritable bowel syndrome with constipationNa usea and vomiting, unspecified vomiting typeGastropare sis 4 Brenda Chawla. [address], [id number], [place]. tel:[phone] Referring Provider: Merline Barrera MD, [address] [place] [address], [address]. tel:[phone] [facility], [address] [address], [place], [id number], [place] tel:[phone] [facility] No Information Victoriano Valencia. [address] [facility] [address], [place], [id number], [place]. tel:[phone] [facility], [address] [address], [place], [id number], [place] tel:[phone] No Information No Information Offic/outpt E&m Estab Mod-hi 4 [facility], [address] [address], [place], [id number], [place] tel:[phone] [facility] GI Symptoms or Concerns (chief complaint) Irritable bowel syndrome with constipationNa usea and vomiting, unspecified vomiting typeBloatingEp igastric painDietary counseling and surveillance 3 Gayle Rivera. [address] [facility], [place] [address], [place], [id number], [place]. tel:[phone] Referring Provider: Merline Barrera MD, [address] [place] [address], [place], [address]. tel:[phone] [facility], [address] [address], [place], [place], [id number], [place] tel:[phone] [facility] No Information 3 Victoriano Valencia. [address] [facility], [facility] [address], [place], [id number], [place]. tel:[phone] [facility], [address] [address], [place], [place], [id number], [place] tel:[phone] [facility] No Information 3 Gayle Rivera. [address] [facility], [facility] [address], [place], [place], [id number], [place]. tel:[phone] Referring Provider: Referral Self, USE FOR SELF REFERRALS. Offic/outpt E&m Estab Mod-hi 4 [facility], [address] [address], [facility] [place], [id number], [place] tel:[phone] [facility] GI Symptoms or Concerns (chief complaint) Irritable bowel syndrome with constipationGa stroesophageal reflux disease, unspecified whether esophagitis presentChest pain, unspecified typeNausea and vomiting, unspecified vomiting type 2 Gayle Rivera. [address] [facility], [place] [address], [place], [place], [id number], [place]. tel:[phone] Referring Provider: Referral Self, USE FOR SELF REFERRALS. Offic/outpt E&m Estab Low-mod [facility], [address] [address], [facility] [place], [id number], [place] tel:[phone] [facility] GI Symptoms or Concerns (chief complaint) Gastroparesis 2 Mary Anderson. [address], [id number], [place]. tel:[phone] Referring Provider: Merline Barrera MD, [address] [facility], [place], [address]. tel:[phone] [facility], [address] [address], [place], [id number], [place] tel:[phone] [facility] No Information 2 Victoriano Valencia. [address], [id number], [place]. tel:[phone] Telephone E&M III 21-30 Min CORDELL [facility], [address] [address], [place], [id number], [place] tel:[phone] [facility] GI Symptoms or Concerns (chief complaint) Generalized abdominal painFocal active colitisBloatin gElevated C-reactive protein (CRP) 1 Barbara Aquino. [facility] [address], [id number], [place]. tel:[phone] Referring Provider: Referral Self, USE FOR SELF REFERRALS. [facility], [address] [address], [place], [id number], [place] tel:[phone] [facility] No Information 1 Yas Adkins. [address] [place] [address], [id number], [place]. tel:[phone] Family History Family Member Type Diagnosis Age At Onset Mother Problem (finding) Mother Problem (finding) malignant neoplasm of u rinary bladder Father Problem (finding) Alive and well Sister Problem (finding) Alive and well Brother Problem (finding) Alive and well Immunizations Vaccine Date Status Comments Afluria Qd administered Note: [facility] bi-directional interface ; Source: Other Registry Pneumococcal conjugate vacci ne 20-valent (PCV20), polysaccharide [id number] conjugate, adjuvant, preservative free administered Note: [facility] [...] Registry Payers Payer name Insurance type Covered republican ID Authormoisesa timorgan(s) No Information Social History Type Description Quantity Date Captured Comments Sex Female Smoking Status No Information Chief Complaint And Reason For Visit No Information Reason For Referral Reason For Referral No Information Plan Of Treatment Date Type Action Status Goal Lifestyle education regardin g diet completed Referral Ordered: follow-up visit with [facility] 5 Months Appointment date/timeframe: 5 Months ordered [...] as constipation. She is accompanied by a recycling attendant today. In review, she has a past medical history of GERD, previous cholecystectomy, and gastroparesis. A gastric emptying study at [facility] in November 2021 showed only 22% emptying by 90 minutes. She was last seen in our [facility] clinic in June 2022, at which time [...] Concerns Kayleigh Vic Stahl is a 32-year-old Algerian-speaking female, who was present today in the [facility] with a professional Algerian-speaking ultra sound technician. She is 20 weeks gestation and returns [...] female who is present today in the [facility] to discuss gastroparesis, nausea/vomiting, abdominal pain and bowel irregularity. 55 minutes was spent on this encounter. She is seen through the assistance of a professional language line cleaner assistant. Her significant other Erik is present as well who also speaks german. Symptoms have been present for several months. [...] gastroparesis. The history is obtained through an ultra sound technician. She has been seen previously by us [...] telehealth appointment with the help of a Algerian-speaking ultra sound technician for the evaluation of abdominal discomfort, bloating, [...] well as some laboratory work done through [place]; these records will be requested.There [...] arding possible gastroparesis with her through the ultra sound technician. Supplied gastric emptying folder. We discussed smaller frequent meals, blending her food. Continue pantoprazole q.a.m. Twain of Reglan liquid 10 mg half an [...]
--- OUTSIDE RECORDS SUMMARY | 2024-01-11 11:31 | XMS_ITS | Referral Summary ---
Author Organization [facility] Address [address] [place] [address] Care Team Providers Care Oracle Iam Consultant Name Role Phone Doctor, No Primary Care [...] Comments Blood Pressure 131/90 02/19/2022 6:00 PM ENDS DOWN CHECKER Pulse 79 02/19/2022 6:00 PM ENDS DOWN CHECKER Temperature 36.5 ??C (97.7 ??F) 02/19/2022 4:09 PM CS T Respiratory Rate 21 02/19/2022 6:00 PM ENDS DOWN CHECKER Oxygen Saturation 99% 02/19/2022 6:00 PM ENDS DOWN CHECKER Inhaled Oxygen Concentration - - Weight 112.5 kg (248 lb) 12/01/2012 10:03 AM CDT Height 162.6 cm (5' 4) 12/01/2012 10:03 AM CDT Body Mass Index 42.57 12/01/2012 10:03 AM CDT Plan of Treatment Not on file Advance Directives For more information, please contact: [phone] * Full Code (Latest Code Status on File) Date Activated Date Inactivated Comments 12/02/2012 1:52 PM 12/05/2012 6:57 PM Question Answer Comments How was code status determined? Patient Care Teams Oracle Iam Consultant Relationship Specialty Start Date End Date Doctor, No No ad PCP - General Radiology 02/19/22
--- OUTSIDE RECORDS SUMMARY | 2024-01-11 11:31 | XMS_ITS | Clinical Summary ---
Author Organization [facility] Address [address] [place] [address] Care Team Providers Care Job Site Superintendent Name Role Phone Doctor, No Primary Care [...] Maternal Grandmother Diabetes Maternal Grandmother Cancer Mother medical corps officer cancer of un known origin to patient [...] Comments Blood Pressure 131/90 02/19/2022 6:00 PM HEALTH CAREERS INSTRUCTOR Pulse 79 02/19/2022 6:00 PM HEALTH CAREERS INSTRUCTOR Temperature 36.5 ??C (97.7 ??F) 02/19/2022 4:09 PM CS T Respiratory Rate 21 02/19/2022 6:00 PM HEALTH CAREERS INSTRUCTOR Oxygen Saturation 99% 02/19/2022 6:00 PM HEALTH CAREERS INSTRUCTOR Inhaled Oxygen Concentration - - Weight 112.5 [...] Advance Directives For more information, please contact: [phone] * Full Code (Latest Code Status on File) Date Activated Date Inactivated Comments 12/02/2012 1:52 PM 12/05/2012 6:57 PM Question Answer Comments How was code status determined? Patient Care Teams Job Site Superintendent Relationship Specialty Start Date End Date Doctor, No No ad PCP - General Radiology 02/19/22
== END 2024-01-11 10:22 | disposition home or self-care (01) ==
LOC: US 10:22
PROVIDERS: PCP Family Medicine; Visit Provider Obstetrics & Gynecology
DX: O36.5990 Maternal care for other known or suspected poor fetal growth, unspecified trimester, not applicable or unspecified (principal); O10.919 Unspecified pre-existing hypertension complicating pregnancy, unspecified trimester
CPT/HCPCS: 76819; T1013

== ENCOUNTER 2024-01-20 12:12 | Outpatient (CLI) | payer MEDICAID, SELFPAY ==
--- OUTSIDE RECORDS SUMMARY | 2024-01-20 12:14 | XMS_ITS | Continuity of Care Document ---
Author Organization [facility] Address [address] [address] [place] [address] Phone Care Team Providers Care Poultry Hatchery Manager Name Role Phone No Information Unavailable Unavailable [...] Diagnoses Date Provider Providers Copied on Encounter [facility], [address] [address], [place], [id number], [place] tel:[phone] No Information No Information Offic/outpt E&m Estab Mod-hi 2 [facility], [address] [address], [place], [id number], [place] tel:[phone] [facility] Comment (chief complaint) Irritable bowel syndrome with constipationNa usea and vomiting, unspecified vomiting typeGastropare sis 4 Brenda Chawla. [address], [id number], [place]. tel:[phone] Referring Provider: Merline Barrera MD, [address] [place] [address], [address]. tel:[phone] [facility], [address] [address], [place], [id number], [place] tel:[phone] [facility] No Information Victoriano Valencia. [address] [facility] [address], [place], [id number], [place]. tel:[phone] [facility], [address] [address], [place], [id number], [place] tel:[phone] No Information No Information Offic/outpt E&m Estab Mod-hi 4 [facility], [address] [address], [place], [id number], [place] tel:[phone] [facility] GI Symptoms or Concerns (chief complaint) Irritable bowel syndrome with constipationNa usea and vomiting, unspecified vomiting typeBloatingEp igastric painDietary counseling and surveillance [address] [facility] [place] [address], [place], [id number], [place]. tel:[phone] Referring Provider: Merline Barrera MD, [address] [place] [address], [place], [address]. tel:[phone] [facility], [address] [address], [place], [place], [id number], [place] tel:[phone] [facility] No Information [address] [facility] [address], [place], [id number], [place]. tel:[phone] [facility], [address] [address], [place], [place], [id number], [place] tel:[phone] [facility] No Information [address] [facility], [facility] [address], [place], [place], [id number], [place]. tel:[phone] Referring Provider: Referral Self, USE FOR SELF REFERRALS. Offic/outpt E&m Estab Mod-hi 4 [facility], [address] [address], [facility] [place], [id number], [place] tel:[phone] [facility] GI Symptoms or Concerns (chief complaint) Irritable bowel syndrome with constipationGa stroesophageal reflux disease, unspecified whether esophagitis presentChest pain, unspecified typeNausea and vomiting, unspecified vomiting type [address] [facility], [place] [address], [place], [place], [id number], [place]. tel:[phone] Referring Provider: Referral Self, USE FOR SELF REFERRALS. Offic/outpt E&m Estab Low-mod [facility], [address] [address], [facility] [place], [id number], [place] tel:[phone] [facility] GI Symptoms or Concerns (chief complaint) Gastroparesis 2 Mary Anderson. [address], [id number], [place]. tel:[phone] Referring Provider: Merline Barrera MD, [address] [facility], [place], [address]. tel:[phone] [facility], [address] [address], [place], [id number], [place] tel:[phone] [facility] No Information 2 Victoriano Valencia. [address], [id number], [place]. tel:[phone] Telephone E&M III 21-30 Min CORDELL [facility], [address] [address], [place], [id number], [place] tel:[phone] [facility] GI Symptoms or Concerns (chief complaint) Generalized abdominal painFocal active colitisBloatin gElevated C-reactive protein (CRP) 1 Barbara Aquino. [facility], [id number], [place]. tel:[phone] Referring Provider: Referral Self, USE FOR SELF REFERRALS. [facility], [address] [address], [place], [id number], [place] tel:[phone] [facility] No Information 1 Yas Adkins. [address] [place] [address], [id number], [place]. tel:[phone] Family History Family Member Type Diagnosis Age At Onset Mother Problem (finding) Mother Problem (finding) malignant neoplasm of u rinary bladder Father Problem (finding) Alive and well Sister Problem (finding) Alive and well Brother Problem (finding) Alive and well Immunizations Vaccine Date Status Comments Afluria Qd administered Note: [facility] bi-directional interface ; Source: Other Registry Pneumococcal conjugate vacci ne 20-valent (PCV20), polysaccharide [id number] conjugate, adjuvant, preservative free administered Note: [facility] [...] diet completed Referral Ordered: follow-up visit with [facility] 5 Months Appointment date/timeframe: 5 Months [...] as constipation. She is accompanied by a educational interpreter today. In review, she has a past medical history of GERD, previous cholecystectomy, and gastroparesis. A gastric emptying study at [facility] in November 2021 showed only 22% emptying by 90 minutes. She was last seen in our [facility] clinic in June 2022, at which time [...] Concerns Kayleigh Vic Stahl is a 32-year-old Uruguayan-speaking female, who was present today in the [facility] with a professional Uruguayan-speaking historic interpreter. She is 20 weeks gestation and [...] female who is present today in the [facility] to discuss gastroparesis, nausea/vomiting, abdominal pain and bowel irregularity. 55 minutes was spent on this encounter. She is seen through the assistance of a professional language line translator and interpreter. Her significant other Erik is present as well who also speaks montserratian. Symptoms have been present for several months. [...] gastroparesis. The history is obtained through an historic interpreter. She has been seen previously by [...] telehealth appointment with the help of a Uruguayan-speaking historic interpreter for the evaluation of abdominal discomfort, [...] well as some laboratory work done through [facility]; these records will be requested.There is no [...] arding possible gastroparesis with her through the historic interpreter. Supplied gastric emptying folder. We discussed smaller frequent meals, blending her food. Continue pantoprazole q.a.m. [place] of Reglan liquid 10 mg half an [...]
--- NOTE | 2024-01-20 12:15 | CRLHL7_ITS ---
For Patients: As a result of the Century Cures Act, medical imaging exams and procedure reports are released immediately into your electronic medical record. You may view this report before your referring provider. If you have questions, please contact your health care provider. INDICATION: CHRONIC HTN, IUGR COMPARISON: 01/11/2024 TECHNIQUE: Real time hooks scale imaging of the fetus was performed. Without non-stress testing. FINDINGS: Sonographic imaging demonstrates a single living intrauterine gestation. Fetus demonstrates a regular cardiac rate of 144 beats per minute. Fetus has a vertex position. The amniotic fluid volume appears normal and there is a single deepest pocket measurement of 5.8 cm. The fetus was active and demonstrated normal breathing movements. There was normal flexion and extension of the trunk and extremities. IMPRESSION: Normal biophysical profile score of 8 out of 8. Dictated by Logan Felix MD @ 01/24/2024 4:12:24 PM (Electronically Signed)
== END 2024-01-20 12:13 | disposition home or self-care (01) ==
LOC: US 12:13
PROVIDERS: PCP Family Medicine; Visit Provider Obstetrics & Gynecology
DX: O10.913 Unspecified pre-existing hypertension complicating pregnancy, third trimester (principal); O36.5930 Maternal care for other known or suspected poor fetal growth, third trimester, not applicable or unspecified; Z3A.34 34 weeks gestation of pregnancy
CPT/HCPCS: 76819; T1013

== ENCOUNTER 2024-01-25 09:03 | Outpatient (CLI) | payer MEDICAID, SELFPAY ==
--- OUTSIDE RECORDS SUMMARY | 2024-01-25 09:06 | XMS_ITS | Clinical Summary ---
Author Organization [facility] Address [address] [place] [address] Care Team Providers Care A/C Tech Name Role Phone Clinic, [facility] Primary Care Provider Kristy Jack MD Unavailable [phone] Allergies No known active allergies Medications [...] Administration Dates Next Due COVID-19 MONOVALENT 12+ (WhatsApp) 01/14/2021,12/05 Influenza Vaccine >6 months,quad, PF ,12/10/2021,01/28/2021, [...] CDT ABSTRACT HIV Routine 04/28/2022 2:58 PM OPHTHALMIC ASSISTANT PAP IMAGED THIN LAYER SCREEN Routine 08/05/2012 [...] LAB - BLOOD ORDERABL ES UR LABORATORY [facility] Acute Care Lab [address] [facility], [address] [place] [address] [phone] * Hepatitis C antibody (10/13/2022 1:14 PM [...] UM SPECIALTY CORE/PROT/ENDO UM Specialty Core/Prot/Endo [address] [facility], [address] [phone] * ABSTRACT HIV (04/28/2022 2:58 PM OPHTHALMIC ASSISTANT) HIV 1&2 EXT Non-Reacti ve [facility] Comment:SEE SCAN FOR REFEREN CE RANGE Blood 04/28/2022 2:58 PM OPHTHALMIC ASSISTANT Narrative [facility] - 04/28/2022 2:58 PM OPHTHALMIC ASSISTANT [facility] LAB RESULTS Provider Outside LAB - HIM EXTERNAL R ESULT Performing Organization Address City/[facility]/ZIP Co de Phone Number [address] [phone] * PAP imaged thin layer, screen (08/05/2012 12:00 AM CDT) PAP GUILLERMINA Manzo Report Patient Name: KAYLEIGH LOCKWOOD MR#: [id number] Specimen #: [id number] Collected: 08/05/2012 Received: 08/08/2012 Reported: 08/09/2012 13:41 [...] DC Thayer (ASCP) Processed and screened at [facility], [facility] CLINICAL HISTORY: LMP: 04/21/2012 , Papanicolaou Test Limitations: ??Cervical cytology is a screening test with limited sensitivity; regular screening is critical for cancer prevention; Pap tests are primarily effective for the diagnosis/preventi on of squamous cell carcinoma, not adenocarcinomas or other cancers. TESTING LAB LOCATION: [facility] [address] [place], [place] ??[address] COLLECTION SITE: Client: ??[facility] Location: RMFP (R) COPATH Cytologic material (specimen) 08/05/2012 08/08/2012 12:52 PM CDT Berny Lopez MD LAB - OPTIME C LINICAL SPECIMEN COPATH from Last 3 Months or Most Recently Relevant to Health Maintenance Advance Directives For more information, please contact: [phone] * Full Code (Latest Code Status on File) Date Activated Date Inactivated Comments 10/13/2022 12:39 PM 10/16/2022 4:16 PM All basic a nd advanced life-sustaining interventions are performed as appropriate Question Answer Comments Code status determined by: Unable to dis cuss and no AD/POLST on file; continue PREVIOUSLY ORDERED code status Care Teams A/C Tech Relationship Specialty Start Date End Date [facility], [address] [address] PCP - General 09/25/18 Kristy Jack MD [address] [facility] [address] [place] [address] Assigned OBGYN Provider 07/25/22
--- OUTSIDE RECORDS SUMMARY | 2024-01-25 09:06 | XMS_ITS | Referral Summary ---
Author Organization [facility] Address [address] [place] [address] Care Team Providers Care Director Biostatistics Name Role Phone [place], [facility] Primary Care Provider Kristy Jack MD Unavailable [phone] Allergies No known active allergies Medications [...] CDT ABSTRACT HIV Routine 04/28/2022 2:58 PM ENVELOPE MACHINE ADJUSTER PAP IMAGED THIN LAYER SCREEN Routine 08/05/2012 [...] [facility] [address] [facility], [address] [place] [address] [phone] * Hepatitis C antibody (10/13/2022 1:14 PM [...] SPECIALTY CORE/PROT/ENDO UM Specialty Core/Prot/Endo [address] [facility], Room [address] [phone] * ABSTRACT HIV (04/28/2022 2:58 PM ENVELOPE MACHINE ADJUSTER) HIV 1&2 EXT Non-Reacti ve [facility] Comment:SEE SCAN FOR REFEREN CE RANGE Blood 04/28/2022 2:58 PM ENVELOPE MACHINE ADJUSTER Narrative [facility] - 04/28/2022 2:58 PM ENVELOPE MACHINE ADJUSTER [facility] LAB RESULTS Provider Outside LAB - HIM EXTERNAL R ESULT Performing Organization Address City/[facility]/ZIP Co de Phone Number [address] [phone] * PAP imaged thin layer, screen (08/05/2012 12:00 AM CDT) PAP GUILLERMINA Manzo Report Patient Name: KAYLEIGH LOCKWOOD MR#: [id number] Specimen #: [id number] Collected: 08/05/2012 Received: 08/08/2012 Reported: 08/09/2012 13:41 [...] DC Thayer (ASCP) Processed and screened at [facility], [facility] CLINICAL HISTORY: LMP: 04/21/2012 , Papanicolaou Test Limitations: ??Cervical cytology is a screening test with limited sensitivity; regular screening is critical for cancer prevention; Pap tests are primarily effective for the diagnosis/preventi on of squamous cell carcinoma, not adenocarcinomas or other cancers. TESTING LAB LOCATION: [facility] [address] [place], [place] ??[address] COLLECTION SITE: Client: ??[facility] Location: [facility]FP (R) COPATH Cytologic material (specimen) 08/05/2012 08/08/2012 12:52 PM CDT Berny Lopez MD LAB - OPTIME C LINICAL SPECIMEN COPATH from Last 3 Months or Most Recently Relevant to Health Maintenance Advance Directives For more information, please contact: [phone] * Full Code (Latest Code Status on File) Date Activated Date Inactivated Comments 10/13/2022 12:39 PM 10/16/2022 4:16 PM All basic a nd advanced life-sustaining interventions are performed as appropriate Question Answer Comments Code status determined by: Unable to dis cuss and no AD/POLST on file; continue PREVIOUSLY ORDERED code status Care Teams Director Biostatistics Relationship Specialty Start Date End Date [facility], [address] [address] PCP - General 09/25/18 Kristy Jack MD [address] [facility] [address] [place] [address] Assigned OBGYN Provider 07/25/22
--- OUTSIDE RECORDS SUMMARY | 2024-01-25 09:08 | XMS_ITS | Clinical Summary ---
Author Organization [facility] Address [address] [place] [address] Care Team Providers Care Relocation Services Specialist Name Role Phone Doctor, No Primary Care [...] Maternal Grandmother Diabetes Maternal Grandmother Cancer Mother clinical coder cancer of un known origin to patient [...] Comments Blood Pressure 131/90 02/19/2022 6:00 PM RIG WELDER Pulse 79 02/19/2022 6:00 PM RIG WELDER Temperature 36.5 ??C (97.7 ??F) 02/19/2022 4:09 PM CS T Respiratory Rate 21 02/19/2022 6:00 PM RIG WELDER Oxygen Saturation 99% 02/19/2022 6:00 PM RIG WELDER Inhaled Oxygen Concentration - - Weight 112.5 [...] Advance Directives For more information, please contact: [phone] * Full Code (Latest Code Status on File) Date Activated Date Inactivated Comments 12/02/2012 1:52 PM 12/05/2012 6:57 PM Question Answer Comments How was code status determined? Patient Care Teams Relocation Services Specialist Relationship Specialty Start Date End Date Doctor, No No ad PCP - General Radiology 02/19/22
--- OUTSIDE RECORDS SUMMARY | 2024-01-25 09:08 | XMS_ITS | Clinical Summary ---
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 None Seen, Few Epi/HPF 12/17/2023 4:13 PM CDT [facility] Urine URINE SPECIMEN / Unknown Non-Blood / Unknown 12/17/2023 3:44 PM CDT 12/17/2023 3:48 PM CDT Lakesha Mccray MD URINE Performing Organization Address [facility]/State/[facility] Co de Phone Number [facility] [address] [place] [phone] * (ABNORMAL) Urinalysis W Reflex Microscopic if Positive (12/17/2023 3:44 PM CDT) Only the most recent of2 resultswithin the time period is included. COLOR Yellow Yellow Color 12/17/2023 3:54 PM [facility] CLARITY Clear Clear Clarity 12/17/2023 3:54 PM [facility] SPECIFIC GRAVITY,URINE >=1.030(A) 1.010, 1.015, 1.020, 1.025 12/17/2023 3:54 PM T [facility] PH,URINE 6.0 6.0, 7.0, 8.0, 5.5, 6.5, 7.5, 8.5 12/17/2023 3:54 PM [facility] UROBILINOGEN,QU ALITATIVE Normal Normal EU/dl 12/17/2023 3:54 PM [facility] PROTEIN, URINE Trace(A) Negative mg/dL 12/17/2023 3:54 PM T [facility] GLUCOSE, URINE Negative Negative mg/dL 12/17/2023 3:54 PM CDT [facility] KETONES,URINE Trace(A) Negative mg/dL 12/17/2023 3:54 PM CDT [facility] BILIRUBIN,URINE Abnormal(A) Negative 12/17/19 3:54 PM CDT [facility] Comment:A variety of metabol ites and/or medications may result in a positive bilirubin result. Clinical correlation is recommended. OCCULT BLOOD,URINE Negative Negative 12/17/2023 3:54 PM CDT [facility] NITRITE Negative Negative 12/17/2023 3:54 PM CDT [facility] LEUKOCYTE ESTERASE Negative Negative 12/17/2023 3:54 PM CDT [facility] Urine URINE SPECIMEN / Unknown Non-Blood / Unknown 12/17/2023 3:44 PM CDT 12/17/2023 3:48 PM CDT Lakesha Mccray MD URINE Performing Organization Address City/State/[facility] Co de Phone Number [facility] [address] [place] [phone] * Growth Follow Up Any Trimester (CPT 70621) If BPP w/NST needed use Testing section [...] as recommended -Begin weekly testing scheduled with [facility] (12/09/23) ?? -Present findings are reassuring. -A follow up ultrasound for growth is recommended in 6 weeks and is scheduled today with [facility] ?? COMMENT: The patient was seen by [...] as needed. Medical Decision Making: Moderate Level 50543 ?Moderate number/complexity of problems including an undiagnosed [...] Services Provided: Procedures Code FOLLOW UP GROWTH 80630.0 Procedure Note Wood Jimenez MD - 12/02/2023 Referred By: KAJAL BARRERA MD IndicationsCode 27 weeks gestation of [id number].27 Maternal Obesity - BMI >35 (39) CHTN [...] as recommended -Begin weekly testing scheduled with [facility] (12/09/23) -Present findings are reassuring. -A follow up ultrasound for growth is recommended in 6 weeks and isscheduled today with [facility] COMMENT: The patient was seen by the [...] discussed asneeded. Medical Decision Making: Moderate Level 06465 Moderate number/complexity of problems including an undiagnosed [...] health, etc. Services Provided: ProceduresCode FOLLOW UP [id number] Wood Jimenez MD * TROPONIN T (HS) ONE TIME (11/01/2023 4:29 PM CDT) [facility] TROPONIN T HS <6 6-10 ng/L ng/L 11/01/2023 4:49 PM CDT [facility] Blood BLOOD SPECIMEN / Unknown Venipuncture / Unknown 11/01/2023 4:29 PM CDT 11/01/2023 4:31 PM CDT Cassi Skinner DO CHEMI STRY [facility] [address] [place] [address] * COVID-19 MOLECULAR (11/01/2023 3:40 PM CDT) [facility] COVID 19 ALLINA MOLECULAR Not detected Not detected 11/01/2023 4:15 PM CDT [facility] TESTING LABORATORY [facility] 11/01/2023 4:15 PM CDT [facility] Comment:Specimen submitted t o [facility] for testing. Other SPECIMEN FROM NASOPHARYNGEAL STRUCTURE / Unknown Non-Blood / Unknown 11/01/2023 3:40 PM CDT 11/01/2023 3:53 PM CDT Cassi Skinner DO MICRO BIOLOGY Performing Organization Address City/[facility]/ZIP Co de Phone Number [facility] [address] [place] [address] * URINE CULTURE (11/01/2023 3:40 PM CDT) CULTURE <10,000 CFU/mL multiple organisms 11/02/2023 3:34 PM CDT [facility] Urine URINE SPECIMEN / Unknown Non-Blood / Unknown 11/01/2023 3:40 PM CDT 11/01/2023 3:53 PM CDT Cassi Skinner DO MICRO BIOLOGY Performing Organization Address City/[facility] Co de Phone Number [facility] [address] [place] [address], * XR CHEST 2 VIEWS PA AND [...] 4:33:11 PM (Electronically Signed) Cassi Taylor Uriel Plutt DO GENER AL IMAGING * TROPONIN T (HS) ACUTE W/2HR REFLEX (11/01/2023 2:24 PM CDT) TROPONIN T HS <6 6-10 ng/L ng/L 11/01/2023 3:02 PM CDT [facility] Blood BLOOD SPECIMEN / Unknown Venipuncture / Unknown 11/01/2023 2:24 PM CDT 11/01/2023 2:[address] [facility] - 11/01/2023 3:02 PM CDT hs-cTnT [...] Skinner DO CHEMI STRY Performing Organization Address City/[facility]/ZIP Co de Phone Number [facility] [address] [place] [address] * EXTRA TUBE KEYES (11/01/2023 2:24 PM CDT) Blood BLOOD SPECIMEN / Unknown Extra Tube / Unknown 11/01/2023 2:24 PM CDT 11/01/2023 2:41 PM CDT Doctor Unknown LABORATORY Performing Organization Address [facility]/ZIP Co de Phone Number [facility] [address] [place] [address] * (ABNORMAL) CBC W PLT NO DIFF (11/01/2023 2:24 PM CDT) WHITE BLOOD COUNT 13.3(H) 4.5 - 11.0 thou/cu mm 11/01/2023 2:37 PM CDT [facility] RED BLOOD COUNT 4.00 4.00 - 5.20 mil/cu mm 11/01/2023 2:37 PM CDT [facility] HEMOGLOBIN 12.5 12.0 - 16.0 g/dL 11/01/2023 2:37 PM CDT [facility] HEMATOCRIT 36.2 33.0 - 51.0 % 11/01/2023 2:37 PM CDT [facility] MCV 91 80 - 100 fL 11/01/2023 2:37 PM CDT [facility] MCH 31.3 26.0 - 34.0 pg 11/01/2023 2:37 PM CDT [facility] MCHC 34.5 32.0 - 36.0 g/dL 11/01/2023 2:37 PM T [facility] RDW 14.0 11.5 - 15.5 % 11/01/2023 2:37 PM CDT [facility] PLATELET COUNT 265 140 - 440 thou/cu mm 11/01/2023 2:37 PM T [facility] MPV 9.9 6.5 - 11.0 fL 11/01/2023 2:37 PM CDT [facility] Blood BLOOD SPECIMEN / Unknown Venipuncture / Unknown 11/01/2023 2:24 PM CDT 11/01/2023 2:29 PM CDT Cassi Skinner DO HEMAT OLOGY Performing Organization Address City/State/[facility] Co de Phone Number [facility] [address] [place] [address] * PRO-BNP (11/01/2023 2:24 PM CDT) PRO-BNP 118 <125 pg/mL 11/01/2023 3:02 PM CDT [facility] Blood BLOOD SPECIMEN / Unknown Venipuncture / Unknown 11/01/2023 2:24 PM CDT 11/01/2023 2:29 PM CDT Narrative [facility] - 11/01/2023 3:02 PM CDT [...] failure. ? Cassi Skinner DO SEND OUTS [facility] [address] [place] [phone] * (ABNORMAL) BASIC METABOLIC PANEL (11/01/2023 2:24 PM CDT) [facility] SODIUM 139 136 - 145 mmol/L 11/01/2023 3:02 PM CDT [facility] POTASSIUM 3.4(L) 3.5 - 5.1 mmol/L 11/01/2023 3:02 PM CDT [facility] CHLORIDE 103 98 - 107 mmol/L 11/01/2023 3:02 PM CDT [facility] CO2,TOTAL 24 22 - 29 mmol/L 11/01/2023 3:02 PM CDT [facility] ANION GAP 12 5 - 18 11/01/2023 3:02 PM CDT [facility] GLUCOSE 86 70 - 99 mg/dL 11/01/2023 3:02 PM CDT [facility] CALCIUM 9.5 8.6 - 10.0 mg/dL 11/01/2023 3:02 PM CDT [facility] BUN 7 6 - 20 mg/dL 11/01/2023 3:02 PM T [facility] CREATININE 0.44(L) 0.50 - 0.90 mg/dL 11/01/2023 3:02 PM CDT [facility] BUN/CREAT RATIO 16 10 - 20 3:02 PM T [facility] eGFR >90 >90 mL/min/1.7 3m2 11/01/2023 3:02 PM T [facility] Comment:As of 2021, eG FR [...] PM CDT Cassi Skinner DO CHEMI STRY [facility] [address] [place] [address] * EKG 12 LEAD (11/01/2023 2:19 PM [...] NOW QTc 457 ms BEYOND NOW P [place] 50 degrees BEYOND NOW R [place] -15 degrees BEYOND NOW T [place] 17 degrees BEYOND NOW 11/01/2023 2:19 PM CDT 11/01/2023 9:10 PM CDT Cassi Sweetutt DO EKG O RD BEYOND NOW [place], [place] * LC HCV ANTIBODY RFX TO QUANT PCR (04/08/2022 1:05 PM [facility] [employer]ACIER GUIDE) HCV Ab <0.1 0.0 - 0.9 s/co ratio 04/10/2022 4:08 PM [facility] [employer] [facility] GUIDE [facility] ([facility]) Blood BLOOD SPECIMEN / Unknown Venipuncture / Unknown 04/08/2022 1:05 PM M[facility] [employer]ACIER GUIDE 04/08/2022 1:08 PM [facility] [employer]ACIER GUIDE Narrative [facility] ([facility]) - 04/10/2022 4:08 PM [facility] [employer] GLACIER GUIDE Performed at: ??[address] [employer] [place], [place] ??[id number] Forest Pathology Teacher: Zafar Lama MD, Phone: ??[phone] Kajal Barrera MD LABORATORY Performing Organization Address City/[facility]/ZIP Co de Phone Number [facility] ([facility]) [address] [place] [address] * LC HIV-1/O/2, 4TH GENERATION (04/08/2022 1:05 PM MOUNT[facility] [employer] GLACIER GUIDE) Pathologist [facility] HIV Scr 4th Gen Non Reactive Non Reactive 04/10/2022 9:09 AM [facility] [employer] GLACIER GUIDE [facility] ([facility]) Comment: HIV Negative HIV-1/HIV-2 antibodies and HIV-1 p24 antigen were NOT detected. There is no laboratory evidence of HIV infection. Blood BLOOD SPECIMEN / Unknown Venipuncture / Unknown 04/08/2022 1:05 PM [facility] [employer]ACIER GUIDE 04/08/2022 1:08 PM [facility] [employer]IER GUIDE Narrative [facility] ([facility]) - 04/10/2022 9:09 AM MOUNT[facility] [employer] GLACIER GUIDE Performed at: ??[address] [facility] [address] [place], [place] ??[id number] Forest Pathology Teacher: Zafar Lama MD, Phone: ??[phone] Kajal Barrera MD LABORATORY [facility] ([facility]) [address] [place] [address] * HPV HIGH RISK (12/10/2021 4:35 PM CDT) TYPE 16 Negative Negative 12/15/2021 5:37 PM CDT [facility] TYPE 18 Negative Negative 12/15/2021 5:37 PM CDT [facility] OTHER HIGH RISK TYPES Negative Negative 12/15/2021 5:37 PM CDT [facility] Other (Cervical) Non-Blood / Unknown 12/10/2021 4:35 PM CDT 12/11/2021 4:11 PM CDT Narrative [facility] - 12/15/2021 5:37 PM CDT HPV types 16, 18, 31, 33, 35, 39, 45, 51, 52, 56, 58, 59, 66 and 68 DNA were undetectable or below the pre-set threshold. Methodology: Jewels Irma 4800 HPV Test Kajal Barrera MD MICROBIOLOGY [facility] [address] [place] [address], [place] from Last 3 Months or Most [...] Comments Code Status Discussion: Discussed Care Teams Licensed Embalmer Relationship Specialty Start Date End Date Erma Mina MD [address] [place] [address] PCP - General Obstetrics and Gynecology 12/02/23 Sarwat Miles MD [address] [place] [address] Consulting Physician Surgery - General 06/09/19 Lamar Mayer RN [address] [place] [address] Registered Nurse Registered Nurse 06/09/[address] [place] [address] Registered Dietitian Draw Machine Operator 06/09/19 Kajal Barrera [place] [place] [address] Referring Provider Family [facility] 07/15/23
--- OUTSIDE RECORDS SUMMARY | 2024-01-25 09:08 | XMS_ITS | Referral Summary ---
Author Organization [facility] Address [address] [place] [address] Care Team Providers Care Principal Java Developer Name Role Phone Doctor, No Primary Care [...] Comments Blood Pressure 131/90 02/19/2022 6:00 PM CYBER CRIME INVESTIGATOR Pulse 79 02/19/2022 6:00 PM CYBER CRIME INVESTIGATOR Temperature 36.5 ??C (97.7 ??F) 02/19/2022 4:09 PM CS T Respiratory Rate 21 02/19/2022 6:00 PM CYBER CRIME INVESTIGATOR Oxygen Saturation 99% 02/19/2022 6:00 PM CYBER CRIME INVESTIGATOR Inhaled Oxygen Concentration - - Weight 112.5 kg (248 lb) 12/01/2012 10:03 AM CDT Height 162.6 cm (5' 4) 12/01/2012 10:03 AM CDT Body Mass Index 42.57 12/01/2012 10:03 AM CDT Plan of Treatment Not on file Advance Directives For more information, please contact: [phone] * Full Code (Latest Code Status on File) Date Activated Date Inactivated Comments 12/02/2012 1:52 PM 12/05/2012 6:57 PM Question Answer Comments How was code status determined? Patient Care Teams Principal Java Developer Relationship Specialty Start Date End Date Doctor, No No ad PCP - General Radiology 02/19/22
--- NOTE | 2024-01-25 09:15 | CRLHL7_ITS ---
For Patients: As a result of the Century Cures Act, medical imaging exams and procedure reports are released immediately into your electronic medical record. You may view this report before your referring provider. If you have questions, please contact your health care provider. OB ULTRASOUND CARMEN by LMP: 03/01/2024. GA: 34w, 6d. Single. INDICATION: Hypertension. IUGR. CERVIX: Not visualized. POSITIONING: Vertex. AMNIOTIC FLUID: 5.8 cm. BIOPHYSICAL PROFILE: Total score: 8. Gross body movements: 2. tone: 2. Respiratory activity: 2. Amniotic fluid: 2. PLACENTA: Technique: Transabdominal. PLACENTA POSITION: Posterior. DOPPLER: heart rate: 137 bpm. IMPRESSION: Normal biophysical profile score of 8/8. Yrn Clark M.D. Body/Diagnostic Radiologist [email or web address]/Dictated by: Yrn Clark MD @ 01/26/2024 12:51:00 PM (Electronically Signed)
== END 2024-01-25 09:04 | disposition home or self-care (01) ==
LOC: US 09:03
PROVIDERS: PCP Family Medicine; Visit Provider Obstetrics & Gynecology
DX: O10.913 Unspecified pre-existing hypertension complicating pregnancy, third trimester (principal); O36.5930 Maternal care for other known or suspected poor fetal growth, third trimester, not applicable or unspecified; Z3A.34 34 weeks gestation of pregnancy
CPT/HCPCS: 76819; T1013

== ENCOUNTER 2024-02-01 11:00 | Outpatient (CLI) | payer MEDICAID, SELFPAY ==
[2024-02-02 13:47] LABS: Strep B DNA Probe Negative (Negative)
[2024-02-02 14:26] LABS: Strep B Susceptibility Needed? No
== END 2024-02-01 11:01 | disposition home or self-care (01) ==
PROVIDERS: PCP Family Medicine; Visit Provider Obstetrics & Gynecology
DX: Z34.93 Encounter for supervision of normal pregnancy, unspecified, third trimester (principal); Z3A.35 35 weeks gestation of pregnancy
CPT/HCPCS: 76816; 76819; 87081; 87653; T1013

== ENCOUNTER 2024-02-08 08:58 | Outpatient (CLI) | payer MEDICAID, SELFPAY ==
--- NOTE | 2024-02-08 09:15 | CRLHL7_ITS ---
For Patients: As a result of the Cures Act, medical imaging exams and procedure reports are released immediately into your electronic medical record. You may view this report before your referring provider. If you have questions, please contact your health care provider. INDICATION: Pre-existing hypertension. COMPARISON: Ob ultrasound from 02/01/2024 FINDINGS: Transabdominal examination of the is performed. A single intrauterine gestation is seen in cephalic presentation with regular cardiac activity at 135 beats per minute. The placenta is posterior and is free of the cervical os. The placental grade is 2 and the amniotic fluid volume is normal. The DVP is normal at normal at 4.9 centimeters, unchanged from the previous study where it measured 4.9 cm. The biophysical profile score is 8/8 with no points off. IMPRESSION: 1. Single intrauterine gestation in cephalic presentation with regular cardiac activity. 2. Normal DVP at 4.9 cm, unchanged from the previous study. 3. Normal biophysical profile score of 8/8. Dictated by Cliff Cordova MD @ 02/08/2024 10:55:42 AM (Electronically Signed)
== END 2024-02-08 08:59 | disposition home or self-care (01) ==
PROVIDERS: PCP Family Medicine; Visit Provider Obstetrics & Gynecology
DX: O10.919 Unspecified pre-existing hypertension complicating pregnancy, unspecified trimester (principal)
CPT/HCPCS: 76819; T1013

== ENCOUNTER 2024-02-10 16:13 | Inpatient (IN) | payer MEDICAID, SELFPAY ==
[2024-02-10] VITALS (7 sets, daily range): BP systolic 97–120; BP diastolic 42–68; PULSE 81–101; RESP 16–17; TEMP 36.4–36.7; O2SAT 97–98; BMI 43.0
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
[2024-02-10 17:42] LABS: Basophils Percent Auto 0.2 % (0.0-3.0); Hematocrit 36.3 % (33.0-51.0); Mean Corpuscular HGB Conc 33 gm/dL (32-36); Mean Corpuscular Hemoglobin 29 pg (26-34); Monocytes Percent Auto 7.8 % (0.0-11.0)
[2024-02-10 17:51] LABS: Slide Review Reflex No
[2024-02-10 18:20] LABS: Amphetamine Screen Urine Negative (Negative); Barbiturate Screen Urine Negative (Negative); Benzodiazepines Screen Urine Negative (Negative); Cannabinoid Screen Urine POSITIVE (Negative); Cocaine Screen Urine Negative (Negative); Methadone Screen Urine Negative (Negative); Methamphetamines Screen Urine Negative (Negative); Opiate Screen Urine Negative (Negative); Oxycodone Screen Urine Negative (Negative); Phencyclidine Screen Urine Negative (Negative); Tricyclic Antidepressant Urine Negative (Negative)
[2024-02-10 18:56] LABS: Eosinophils Percent Auto 1.2 % (0.0-7.0); Hemoglobin* 12.1 gm/dL (12.0-16.0); Immature Granulocytes Pct Auto 1.5 %; Lymphocytes Percent Auto 24.7 % (20-44); Mean Corpuscular Volume 87 fL (80-100); Neutrophils Percent Auto 64.6 % (42.0-72.0); Platelet Count* 252 K/uL (140-440); RDW Coefficient of Variation % 13.8 % (11.5-15.5); Red Blood Count 4.19 m/uL (4.00-5.20); White Blood Count* 12.36 K/uL (4.50-11.00)
[2024-02-10] MEDS: ACETAMINOPHEN 500 MG TABLET 1000 MG PO (20:15)
[2024-02-10] MEDS: MORPHINE 10 MG/ML inj IM (23:12)
[2024-02-10] MEDS: hydrOXYzine pamoate 25 MG CAPSULE 100 MG PO (23:13)
[2024-02-11] VITALS (143 sets, daily range): BP systolic 88–159; BP diastolic 50–83; PULSE 64–127; RESP 12–22; TEMP 36.3–37; O2SAT 82–100
[2024-02-11] MEDS: LACTATED RINGERS 1000 ML 1,000 ML 1200 ML IV (02:17)
[2024-02-11] MEDS: LIDOCAINE 2% (PF) 5 ML VIAL EPIDURAL (03:00)
[2024-02-11] MEDS: ROPIVACAINE 0.2% 100 ml 100 ML 12 MG EPIDURAL ×2 (03:00→10:57)
[2024-02-11] MEDS: ONDANSETRON 2 MG/ML inj 4 MG IV ×2 (03:18→17:54)
--- NOTE | 2024-02-11 03:25 | PM.ANBPRC ---
[facility] Medical History Hypokalemia ?E87.6 - Hypokalemia (ICD-10) Chest pain ?R07.9 - Chest pain, unspecified (ICD-10) Gestational diabetes ?O24.419 - Gestational diabetes mellitus in , unspecified control (ICD-10) Chronic hypertension ?I10 - Essential (primary) hypertension (ICD-10) Nausea ?R11.0 - Nausea (ICD-10) Normal vaginal delivery (10/22/22) ?O80 - Encounter for full-term uncomplicated delivery (ICD-10) Panic attacks ?F41.0 - Panic disorder [episodic paroxysmal anxiety] (ICD-10) Depression ?F32.A - Depression, unspecified (ICD-10) Pulmonary embolism ?I26.99 - Other pulmonary embolism without acute cor pulmonale (ICD-10) Prothrombin gene mutation ?D68.52 - Prothrombin gene mutation (ICD-10) Gastritis ?K29.70 - Gastritis, unspecified, without bleeding (ICD-10) Surgical History S/P cholecystectomy ?Z90.49 - Acquired absence of other specified parts of digestive tract (ICD-10) S/P laparotomy ?Z98.890 - Other specified postprocedural states (ICD-10) Social History Narrative: SOCIAL She lives in [place] with her partner, her mother, and her children. 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 He doesn't have a taxi truck driver's license. What is your current living situation?: I presently have a place to live Problems where you live: no known problems In the past 12 months, utilities in danger of being shut off: no In past 12 months, lack of transportation kept you from medical appts, meetings, work, or getting things needed for daily living: no In the past 12 mos, have been you worried that your food would run out before you had money to buy more?: never true In the past 12 mos, the food you bought just didn't last and you didn't have money to buy more?: never true Smoking Status: Current every day smoker How often do you have a drink containing alcohol: never AUDIT-C Alcohol total score: 0 Non-prescribed substance use: former substance user and marijuana (any form) Non-prescribed substance use details: THC How often does anyone, including family, friends and others, physically hurt you: never How often does anyone, including family, friends and others, insult or talk down to you: never How often does anyone, including family, friends and others, threaten you with harm: never How often does anyone, including family, friends and others, scream or curse at you: never Little interest or pleasure in doing things: more than half the days Feeling down, depressed, or hopeless: nearly every day service: No Meds Home Medications and Allergies Home Medications ?Medication ?Instructions ?Recorded ?Confirmed ?Type docosahexaenoic acid 200 mg 200 mg PO DAILY 07/28/23 02/10/24 History capsule ( DHA) hydroxyzine pamoate 50 mg capsule 50 mg PO DAILY 12/01/23 02/10/24 History mirtazapine 30 mg tablet 45 mg PO QHS 01/20/24 02/10/24 History Allergies Allergy/AdvReac Type Severity Reaction Status Date / Time No Known Drug Allergies Allergy Verified 02/10/24 16:39 Results Labs Labs: Laboratory Results - last 24 hr 02/10/24 02/10/24 17:30 18:03 WBC 12.36 H RBC 4.19 Hgb 12.1 Hct 36.3 MCV 87 MCH 29 MCHC 33 RDW Coeff of Cira 13.8 Plt Count 252 Neut % (Auto) 64.6 Lymph % (Auto) 24.7 Powell % (Auto) 7.8 Eos % (Auto) 1.2 Baso % (Auto) 0.2 Neut # (Auto) 8.00 H Lymph # (Auto) 3.10 H Powell # (Auto) 1.00 H Eos # (Auto) 0.10 Baso # (Auto) 0.00 Abs Immat Gran (auto) 0.20 Imm/Tot Granulo (auto) 1.5 Urine Opiates Screen Negative Ur Oxycodone Screen Negative Urine Methadone Screen Negative Ur Barbiturates Screen Negative U Tricyclic Antidepress Negative Ur Phencyclidine Scrn Negative Ur Amphetamines Screen Negative U Methamphetamines Scrn Negative U Benzodiazepines Scrn Negative Urine Cocaine Screen Negative U Marijuana (THC) Screen POSITIVE A Ur Drug Screen Comment See Note Blood Type O Positive Antibody Screen NEGATIVE Vital Signs Vital Signs: Last Vital Signs Temp 97.6 F 02/10/24 23:19 Pulse 86 02/11/24 03:24 Resp 16 02/10/24 23:19 BP 120/67 02/11/24 03:24 Pulse Ox 92 02/11/24 03:22 Weight: 113.806 kg Height: 162.56 cm Anesthesia Procedures Epidural Insertion Patient Location: OB Start Time: 02:35 Stop Time: 03:35 Start Date: 02/11/24 Stop Date: 02/11/24 Reason for Block: procedure for pain Patient Position: sitting Performed By: Albertina Ortiz Preanesthetic Checklist: IV checked, risks and benefits discussed, monitors and equipment checked, pre-op evaluation, timeout performed and anesthesia consent Prep: chlorhexidine gluconate Monitoring: blood pressure monitoring, continuous pulse oximetry and heart rate Approach: midline Vertebral Space: lumbar (1-5) Epidural Technique: LEDY saline Needle Type: Tuohy needle Injection Technique: continuous catheter (continuous catheter) Needle gauge: 17 Needle Length (cm): 10 cm Needle Insertion Depth (cm): 9 Catheter Gauge: 19 Catheter Type: multi-orifice Catheter at skin depth (cm): 15 Test Dose Result: negative and lidocaine 1.5% with epinephrine 1 to 200,000
[2024-02-11] MEDS: OXYTOCIN 30 unit/500 ML in NS 30 UNIT/500 ML BAG IVPB (03:30)
[2024-02-11] MEDS: PHENYLEPHRINE 100 MCG/ML SYRINGE IVP ×2 (04:49→04:59)
[2024-02-11] MEDS: LACTATED RINGERS 1000 ML 1,000 ML 125 ML IV ×3 (05:01→22:24)
--- NOTE | 2024-02-11 08:01 | P.OBPN_ITS ---
Subjective Time Seen by Provider: 08:02 Date Seen: 02/11/24 Narrative: Feeling well. Objective Vital Signs: Last Vital Signs Temp 97.6 F 02/11/24 07:25 Pulse 85 02/11/24 07:58 Resp 16 02/11/24 07:25 BP 121/77 02/11/24 07:58 Pulse Ox 100 02/11/24 05:30 Pelvic Exam Dilation (cm): 5 Effacement (%): 75 Station: -1 Contractions Monitor mode: External Contraction pattern: Irregular Contraction intensity: Moderate Pitocin Rate (mU/min): 1 Assessment Station: -1 Amniotic Membrane Status: AROM Status: Category l Heart Rate Baseline: 115 [facility] Variability: Moderate (6-25) Monitor Accelerations: Present Monitor Decelerations: None Plan Plan: 1. AROM, clear fluid. Continue titration of Oxytocin. 2. Expect a vaginal delivery soon. 3. Type and crossed. Normal hemoglobin upon admission. 4. Epidural in place, need to keep catheter in place for at least 24 hours after delivery as per anesthesia recommendations. 5. Will plan to restart therapeutic Lovenox 6-8 hours after a vaginal delivery depending on hemostasis during/after delivery.
--- NOTE | 2024-02-11 13:43 | PC.SOCIAL ---
Addendum entered and electronically signed by GENIA Kumar 02/11/24 16:13: Social work consult: barrow worker heard from Magdalena #[phone], pt's [facility] Coordinator, whom shared that the pt is on The Restricted Provider Program through [facility] and right now is only allowed to get her medications filled at [facility] in [place] and her medications need to be prescribed by a physician that has been approved by [facility](Dr. Barrera at [facility] in [place] and Dr. Mina through [facility] are two providers that are approved to prescribe medications). The other providers that are approved to prescribe medications are her mental health providers. So this means that if the pt is prescribed medications when she discharges from the hospital they would need to be prescribed by Dr. Mina and they would need to go to [facility] in [place]. barrow worker will update the staff at [facility]. Social work to follow-up as needed. Original Note: Social work consult: barrow worker received a referral on the pt for substance abuse screening. Pt's urine was positive for THC upon admission to the hospital on 02/10/24. barrow worker consulted with Nadia at [facility] Manufacturers Agent whom shared to send the referral right away to [facility]; however, she called back shortly thereafter and said that the report does not need to be sent until the baby is born. As of 1:45pm the pt is still in labor, but is expected to deliver today. If the baby has not been born by 4:30pm when this worker leaves for the day, one of the nurses in [facility] will make the report. Social work to follow-up as needed.
[2024-02-11] MEDS: ACETAMINOPHEN 500 MG TABLET 1000 MG PO (14:36)
[2024-02-11] MEDS: AZITHROMYCIN 500 MG in 0.9 % SODIUM CHLORIDE 250 ml 250 ML 255 MG IVPB (17:39)
--- NOTE | 2024-02-11 17:48 | PM.OBPNL ---
Subjective Time Seen by Provider: 17:48 Date Seen: 02/11/24 Narrative: Yesi hu Objective Vital Signs: Last Vital Signs Temp 98.4 F 02/11/24 15:59 Pulse 86 02/11/24 17:40 Resp 16 02/11/24 15:59 BP 127/72 02/11/24 17:40 Pulse Ox 98 02/11/24 15:19 Pelvic Exam Dilation (cm): 7 Effacement (%): 80 Station: -1 Contractions Monitor mode: Internal Contraction pattern: Regular Contraction intensity: Strong/Firm Pitocin Rate (mU/min): 13 Assessment Assessment: induction ongoing Station: -1 Amniotic Membrane Status: AROM Status: Category l Heart Rate Baseline: 125 [employer] Variability: Moderate (6-25) Monitor Accelerations: Present Monitor Decelerations: None Labor Progress: Arrest of dilation Maternal Status: Stable Plan Plan: Unfortunately, cervix has remained at 6-7 cm for the past at least 6 hours. I AROMed at around 9am and I found cervix at 5cm. Oxytocin had been started at 3am. After AROM Oxytocin was continuously titrated. At around 11am we were having trouble documenting uterine contractions. I performed a cervical check close to 12pm. Cervix was found at 6cm and recommendation was given to place internal monitors to better titrate Oxytocin. Internal monitors since placement have shown adequate MVUs. Oxytocin has been continuously increased up to 13 units and MVUs adequate. I again re checked her cervix at around 2-3pm, since patient was feeling more constant pressure. Cervix was found the same. Stretchy, caput noted. Bedside US completed and baby was noted to be LOT. Manual rotation attempted, but unsuccessful. After this time, we attempted several position changes to try to stimulate rotation. I re evaluated patient again close to 5:30pm as she was feeling increased constant pressure. Cervix and station unchanged. After review of labor progress, attempts made and previous and delivery history, I am concerned that the umbilical cord could be wrapped around and this is impeding baby to descend and continue to stretch the cervix. Recommendation given for delivery as we do meet criteria for arrest of dilation. We discussed surgical procedure, risks of surgery such as bleeding and needing a blood transfusion, infection, damage to nearby organs, blood clots. Discussed interventions to decrease those risks, such as prophylactic antibiotics, SCDs etc... We discussed how recovery is different from a vaginal delivery, but she has had abdominal surgeries with similar recovery in the past. Informed consent discussed and signed by patient. Will proceed with unscheduled delivery. Will then plan to restart Lovenox 12 hours after surgery.
[2024-02-11] MEDS: CEFAZOLIN 1 GM inj 3 GM IVP (18:40)
--- NOTE | 2024-02-11 18:53 | W.ANESCHARGE ---
Anesthesia Charges Start Date/Time Anesthesia Start Date: 02/11/24 Anesthesia Start Time: 18:28 Stop Date/Time Anesthesia Stop Date: 02/11/24 Anesthesia Stop Time: 21:05 Summary Emergency: FOOD ANALYST
--- NOTE | 2024-02-11 18:54 | P.NB_ITS ---
Nerve Block Nerve Block Time Seen by Provider: 20:55 Date Seen: 02/11/24 Type of block requested by surgeon for post-operative analgesia: TAP Side: bilateral Time out performed: Yes Verification of patient name: Yes Verification of date of : Yes Site marking: site marked Name of person performing procedure: Kvng Gil Continuous monitoring Was continuous monitoring of O2 sat, B/P, panel monitor, recorded every 15 minutes?: Yes Procedure Checklist: sterile prep, needles and gloves Ultrasound guided. Images saved: Yes Medications given in 5ml increments after negative aspiration: Marcaine %: 0.25 mL: 30 Needle gauge: 20 and Exparel mL: 10 Needle gauge: 20 Patient tolerated procedure well: Yes Additional comments: Injected in 5ml increments after negative aspiration Block Charges Block Charge (with Pro Fee): TAP Bilateral Use of Ultrasound Machine for Block: Yes- US Guidance/pain block
[2024-02-11] MEDS: OXYTOCIN 30 unit/500 ML in NS 30 UNIT/500 ML BAG 300 UNIT IVPB (19:05)
[2024-02-11] MEDS: KETOROLAC 30 MG/ML inj IVP (20:17)
--- NOTE | 2024-02-11 20:55 | PM.OBPRCCS ---
OB Delivery Proc Additional Procedures Tubal Ligation at the time of : No Procedure Date of procedure: 02/11/24 Pre-op diagnosis: IUP at 37 2/7 weeks, CHTN, history of stillbirth, arrest of dilation Post-op diagnosis: same (Now delivered) Procedure Done: Global Will [facility] bill your pro fee for this procedure?: Yes Blood Loss Measurement Type: QBL (714mL) Bakri Used: No IV fluids (mL): 650 Urine Output (mL): 200 Urine Output Comment: Clear at end of procedure Surgeon: Bennett Mina MD Anesthesia Type: Epidural Findings: FINDINGS: Live-born female infant, LOT presentation, umbilical cord one wrap around body/right shoulder. Apgars 8 and 9 at 1 and 5 minutes respectively. weight: 2526g. Omental adhesions to the anterior abdominal wall and bladder peritoneum. Left fallopian tube looked dilated, adhered to the left pelvic side wall and left round ligament. Right fallopian tube grossly normal, unable to visualize confidently ovaries bilaterally. Procedure Name: Primary low transverse section, lysis of adhesions. Procedure Description: PROCEDURE: After obtaining informed consent, the patient was taken to the operating room where epidural anesthesia was obtained and found to be adequate. Traxi pannus retractor placed. She was then prepared and draped in the normal sterile fashion in the dorsal supine position with a leftward tilt. A Pfannenstiel skin incision was made with a scalpel about 2 cm above symphysis pubic bone, 12-14 cm in length. This incision was carried down to the underlying layer of fascia with the Bovie and scalpel. The fascia was incised in the midline and the incision extended laterally. The rectus muscles were then in the midline. Omental adhesions identified and to obtain access to the uterus, a window was created and utilizing two large clamps a segment of omentum was clamped, cut and ligated with Vicryl 0 free tie. Hemostasis secured. This was done on two separate sites to be able to gain access to the uterus. The Jose Angel O retractor was then placed into the incision. The lower uterine segment was then incised in a transverse fashion with the scalpel. Upon entry into the uterus, clear amniotic fluid was noted. The uterine incision was extended cephalo caudally with blunt finger fractionation. head was brought up to incision easily and with fundal pressure head was delivered atraumatically, umbilical cord noted to be wrapped around body but this was easily reduced with delivery of the body. The cord was doubly clamped and cut, and the infant was handed off the field to warmer for evaluation. The placenta was delivered spontaneously with umbilical cord traction and fundal massage. The uterus was cleared of all clots and debris. The uterine incision was reapproximated in a running locking fashion with a 0 Vicryl suture. A 2nd layer of the same suture was used to imbricate in horizontal fashion. Chromic 2-0 was utilized and multiple figure of 8 stitches completed on uterine serosal defects that were noted to be bleeding. Hemostasis secured. Gutters inspected, I was unable to inspect ovaries as patient had significant discomfort at this point with intra abdominal manipulation. On the left side, a thin adhesion from the left fallopian tube to the left round ligament was slightly disrupted and bleeding noted, this was grasped with DeBakey and coagulated with Bovie, hemostasis secured. Hailey was also utilized over this area, as well as over hysterotomy to further secure hemostasis. All instruments and retractors were removed. At this time, another omental adhesion was identified to anterior peritoneum and this was noted to be thicker, decision was made to utilize handheld LigaSure bipolar device to clamp, coagulate and cut. Hemostasis secured. This allowed complete release of omentum to be able to evaluate peritoneum and anterior abdominal muscles. Peritoneum was approximated with Vicryl 3-0. Perforating fascial vessels noted to be bleeding and clamped, coagulated with LigaSure device. Hemostasis secured. The fascia was reapproximated in a running fashion with a looped 0 PDS suture. The subcutaneous tissues were copiously irrigated, inspected and hemostasis secured. The subcutaneous fat layer was reapproximated with running sutures of 3-0 Vicryl in 3 layers. The skin was closed in a subcuticular fashion with 4-0 Monocryl. Silver dressing placed and will be kept for 7 days. The patient tolerated the procedure well. Sponge, lap, needle, and instrument counts were reported as correct x2. The patient was taken to the recovery room, awake, and in stable condition. She did receive 2 grams of IV Ancef and 500mg of Azithromycin preoperatively. Complications: None Pathology: specimen obtained, sent to pathology (Placenta) Surgery Debrief Performed: Yes Condition: stable Disposition: floor
[2024-02-11] MEDS: LORazepam 2 MG/ML inj 0.5 MG IVP (21:38)
[2024-02-11] MEDS: HYDROmorphone 0.5 mg/0.5 ml inj IVP (22:09)
[2024-02-12] VITALS (14 sets, daily range): BP systolic 93–108; BP diastolic 62–77; PULSE 76–84; RESP 12–20; TEMP 36.6–36.7; O2SAT 97–98
[2024-02-12] MEDS: KETOROLAC 30 MG/ML inj IVP ×4 (01:52→20:13)
[2024-02-12] MEDS: miSOPROStoL 800 MCG/4 TABLET PR (03:02)
[2024-02-12] MEDS: ACETAMINOPHEN 500 MG TABLET 1000 MG PO ×3 (05:28→18:34)
[2024-02-12] MEDS: HYDROmorphone 0.5 mg/0.5 ml inj IVP (06:14)
[2024-02-12] MEDS: LACTATED RINGERS 1000 ML 1,000 ML 75 ML IV (06:33)
[2024-02-12 06:45] LABS: Basophils Percent Auto 0.2 % (0.0-3.0); Eosinophils Percent Auto 0.4 % (0.0-7.0); Hematocrit 31.7 % (33.0-51.0); Hemoglobin* 10.6 gm/dL (12.0-16.0); Immature Granulocytes Pct Auto 0.4 %; Lymphocytes Percent Auto 12.8 % (20-44); Mean Corpuscular HGB Conc 33 gm/dL (32-36); Mean Corpuscular Hemoglobin 29 pg (26-34); Mean Corpuscular Volume 87 fL (80-100); Monocytes Percent Auto 5.8 % (0.0-11.0); Neutrophils Percent Auto 80.4 % (42.0-72.0); Platelet Count* 188 K/uL (140-440); RDW Coefficient of Variation % 13.6 % (11.5-15.5); Red Blood Count 3.63 m/uL (4.00-5.20); White Blood Count* 14.96 K/uL (4.50-11.00)
[2024-02-12 07:05] LABS: Slide Review Reflex No
[2024-02-12 07:30] LABS: INR 1.04 (0.91-1.10); Prothrombin Time 14.2 Seconds
[2024-02-12 07:38] LABS: Fibrinogen* 518 mg/dL (200-450)
[2024-02-12 07:54] LABS: Partial Thromboplastin Time* 28 Seconds (23-33)
[2024-02-12] MEDS: DOCUSATE SODIUM 100 MG CAPSULE PO (08:35)
[2024-02-12] MEDS: OXYCODONE 5 MG TABLET PO ×4 (08:40→21:53)
[2024-02-12] MEDS: hydrOXYzine pamoate 25 MG CAPSULE 50 MG PO (08:42)
--- NOTE | 2024-02-12 08:55 | P.OBPN_ITS ---
OB - PN:Subj Subjective Time Seen by Provider: 08:55 Date Seen: 02/12/24 [place] status: feeding status: breast and bottle feeding Narrative: Kayleigh is postop day 1 from a primary low-transverse for arrest of dilation. She is a [place]itanian speaker and a personal lines sales rep on line was used for the entire visit. She states that she has been having problems with anxiety she normally takes Vistaril, Remeron and Mitrazine daily. Vistaril ordered. She has a history of a prothrombin 2 gene mutation and pulmonary embolism x2 restarting Lovenox this evening approximately 24 hours after her epidural was discontinued. Patient also states that her pain is not under good control. She has received Dilaudid IV and Toradol. I am changing over to oral oxycodone this morning and discontinuing be Dilaudid. Continue Toradol until a total of 6 doses has been given and then change management expert to oral ibuprofen. A stool softener was also started. She is tolerating a regular diet. OB - PN: Obj Exam Physical Exam: Vital signs: Temp Pulse Resp BP Pulse Ox O2 Del Method 98 F 78 12 98/74 97 Room Air 02/12/24 04:30 02/12/24 04:30 02/12/24 04:30 02/12/24 04:30 02/12/24 04:30 02/12/24 04:30 Narrative: General: Pleasant, woman in no acute distress. Vital signs: Included in her electronic medical record. Heart: Regular rate and rhythm without gallop, rub or murmur. Chest: Clear to auscultation bilaterally. Abdomen: Mildly distended. Soft, nontender with normal bowel sounds throughout. Incision: Silver-containing dressing clean, dry and intact. Extremities: No pain or edema, SCDs in place. OB - PN: Obj Data Labs Labs: Laboratory Results - last 24 hr 02/12/24 06:14 WBC 14.96 H RBC 3.63 L Hgb 10.6 L Hct 31.7 L MCV 87 MCH 29 MCHC 33 RDW Coeff of Cira 13.6 Plt Count 188 Neut % (Auto) 80.4 H Lymph % (Auto) 12.8 L [place] % (Auto) 5.8 Eos % (Auto) 0.4 Baso % (Auto) 0.2 Neut # (Auto) 12.00 H Lymph # (Auto) 1.90 [place] # (Auto) 0.90 Eos # (Auto) 0.10 Baso # (Auto) 0.00 Abs Immat Gran (auto) 0.10 Imm/Tot Granulo (auto) 0.4 INR 1.04 APTT 28 Fibrinogen 518 H OB - PN: A/P Delivery Assessment and Plan (1) Status post primary low transverse section: Status: Acute Plan 1. Continue postop cares change narcotic pain medication from IV Dilaudid to oral oxycodone. Continue Toradol. 2. Restart Lovenox this evening: This has been ordered. 3. Discharge home not likely until Wednesday02/14/2024 4. Restart Vistaril 50 mg p.o. q.i.d. p.r.n. anxiety/panic. 5. Continue regular diet. 6. Encourage ambulation. Plan Plan: routine care
[2024-02-12] MEDS: SIMETHICONE 80 MG TAB.CHEW PO (11:05)
[2024-02-12] MEDS: LIDOCAINE 5% PATCH 1 PATCH TRANSDERMA (14:23)
[2024-02-12] MEDS: ZOLPIDEM 5 MG TABLET PO (21:53)
[2024-02-13 00:36] VITALS: BP 90/57; PULSE 70; RESP 12; TEMP 36.5; O2SAT 97
[2024-02-13] MEDS: ACETAMINOPHEN 500 MG TABLET 1000 MG PO ×2 (00:41→06:17)
[2024-02-13 02:28] LABS: Rapid Plasma Reagin (RPR) Non Reactive (Non Reactive)
[2024-02-13 02:30] VITALS: BP 98/54; PULSE 74
[2024-02-13] MEDS: OXYCODONE 5 MG TABLET PO ×3 (02:30→12:56)
[2024-02-13] MEDS: KETOROLAC 30 MG/ML inj IVP (02:30)
[2024-02-13 04:30] VITALS: BP 94/67; PULSE 82
[2024-02-13] MEDS: ENOXAPARIN 100 MG/ML INJ SUBCUT (06:16)
[2024-02-13 06:30] VITALS: BP 102/63; PULSE 72
[2024-02-13 08:10] VITALS: BP 112/65; PULSE 71; RESP 18; TEMP 36.7; O2SAT 98
[2024-02-13] MEDS: hydrOXYzine pamoate 25 MG CAPSULE 50 MG PO (08:35)
[2024-02-13] MEDS: DOCUSATE SODIUM 100 MG CAPSULE PO (08:38)
[2024-02-13] MEDS: IBUPROFEN 600 MG TABLET PO (08:39)
--- NOTE | 2024-02-13 08:45 | P.DS_ITS ---
DS: Providers Provider Time Seen by Provider: 08:45 Date Seen: 02/13/24 Date of admission: 02/10/24 16:13 Primary care physician: Merline Barrera MD Admitting Clinician: Maye Cruz MD Consults: 02/10/24 17:56 Consult to Bio Medical Technician [CONS] Routine Comment: Reason for Consult:: Substance Abuse Screening Attending Physician on discharge: Maye Cruz MD Date of Discharge: 02/13/24 DS: Diagnosis Discharge Diagnosis (1) Status post primary low transverse section: Status: Acute Exam Narrative: Exam Narrative: General: Pleasant, woman in no acute distress. Vital signs: Per electronic medical record. Heart: Regular rate and rhythm without gallop, rub or murmur. Chest: Clear to auscultation bilaterally. Abdomen: Fundus firm at 2 cm below the umbilicus in the midline. Soft, nontender, nondistended with normal bowel sounds throughout. Incision: Silver-containing dressing clean, dry and intact. Extremities: No pain or edema. Const: Vital Signs, click to edit/add: Vital Signs - 24 hr 02/12/24 11:21 02/12/24 12:21 02/12/24 12:40 Temperature 98 F Pulse Rate [Pulse Oximeter] 80 Respiratory Rate 20 20 20 Blood Pressure [Le ft Arm] 108/77 Pulse Oximetry 98 Oxygen Delivery Me thod Room Air 02/12/24 13:21 02/12/24 14:21 02/12/24 15:21 Temperature Pulse Rate [Pulse Oximeter] Respiratory Rate 20 20 16 Blood Pressure [Le ft Arm] Pulse Oximetry Oxygen Delivery Me thod 02/12/24 16:21 02/12/24 16:38 02/12/24 17:21 Temperature 97.9 F Pulse Rate [Pulse Oximeter] 76 Respiratory Rate 16 16 16 Blood Pressure [Le ft Arm] 93/62 Pulse Oximetry 98 Oxygen Delivery Me thod Room Air 02/12/24 18:21 02/12/24 19:37 02/13/24 00:36 Temperature 97.9 F 97.7 F Pulse Rate [Pulse Oximeter] 82 70 Respiratory Rate 20 16 12 Blood Pressure [Le ft Arm] 93/64 90/57 L Pulse Oximetry 97 97 Oxygen Delivery Me thod Room Air Room Air 02/13/24 02:30 02/13/24 04:30 02/13/24 06:30 Temperature Pulse Rate [Pulse Oximeter] 74 82 72 Respiratory Rate Blood Pressure [Le ft Arm] 98/54 L 94/67 102/63 Pulse Oximetry Oxygen Delivery Me thod 02/13/24 08:10 Temperature 98.0 F Pulse Rate [Pulse Oximeter] 71 Respiratory Rate 18 Blood Pressure [Le ft Arm] 112/65 Pulse Oximetry 98 Oxygen Delivery Me thod Room Air OB - DS: Summary Hospital Course Hospital Course: The patient is a 33 year old G 5 now P 4104 at 37 and 3/7 weeks gestation that was admitted to the Center on 02/10/24 for induction of labor she had a failed induction with arrest of dilation. She had an uncomplicated delivery. She delivered a viable female infant. She is breast and bottle feeding. the patient has done well. She would like to be discharged home today. She will need anticoagulation for history of pulmonary embolism x2 until she is 6 weeks . Peripartum Data Infant delivery method: Primary C/S; Labored Laceration description: None Procedures: Procedures Operation Date: 02/11/24 18:45 Actual Procedure Side Surgeon p PRIMARY LOW TRANVERSE Section WIYH LYSIS OF ADHESIONS Erma Mina MD complications: none [place] Infant Gender: Female Infant Discharge Plan: Home Status at Discharge Functional status at discharge: independent ambulation Overall status at discharge: patient is progressing back to baseline Time Spent with Patient Time attestation: Total time spent providing and/or coordinating discharge services: Time spent: Less than 30 minutes Discharge Plan Discharge Disposition: Home, Self-Care Date of Admission: 02/10/24 16:13 Attending Provider on Discharge: Maye Cruz Consulting Providers: Erma Mina Primary Care Provider: Merline Barrera Condition: Stable Anticipated Discharge Date/Time: 02/13/24 11:00 Discharge Medications: New lidocaine 5 % Adhesive Patch,Medicated 1 patch transdermal Q24H Qty: 7 0RF docusate sodium 100 mg Capsule 100 mg PO BID PRNQty: 100 0RF ibuprofen 600 mg Tablet 600 mg PO Q6H PRN (Reason: Pain) Qty: 30 0RF simethicone 80 mg Tablet,Chewable 80 - 160 mg PO Q4H PRN (Reason: Gas) Qty: 30 0RF oxycodone 5 mg Tablet 5 mg PO 3XD PRN (Reason: Pain) Qty: 21 0RF enoxaparin [Lovenox] 100 mg/mL Syringe 100 mg subcut Q12H Qty: 60 3RF Continued DHA 200 mg capsule 200 mg PO DAILY enoxaparin 100 mg/mL syringe 100 mg subcut Q12H 30 Days Qty: 60 6RF omeprazole 40 mg capsule,delayed release(DR/EC) 40 mg PO QDAY 90 Days Qty: 90 3RF simethicone [Gas Relief (simethicone)] 125 mg tablet,chewable 125 mg PO TID PRN (Reason: abdominal distention) Qty: 30 0RF hydroxyzine pamoate 50 mg capsule 50 mg PO DAILY mirtazapine 30 mg tablet 45 mg PO QHS polyethylene glycol 3350 [Miralax] 17 gram powder in packet 17 g PO QDAY Qty: 30 0RF metoclopramide HCl 5 mg/5 mL solution 5 mg PO TID 30 Days Qty: 450 3RF sucralfate 1 gram tablet 1 g PO BID Qty: 60 0RF Discharge Orders: Discharge Order (Routine); Ordered 02/13/24 Ordered By: Maye rCuz Patient Education: (DC) Additional Instructions: ACTIVITY RESTRICTIONS: * Nothing vaginally for 6 weeks: no tampons/intercourse * No driving while taking narcotic pain medication during the day. 1-2 weeks. Okay to be the passenger anytime. * Lifting restriction: Maximum of 20 pounds for 6 weeks. * High impact or core exercises: 6 weeks. * Submerge the incision in water (bath/pool/ruth): 2 weeks. * Off of work/school for a minimum of 8 weeks NO RESTRICTIONS for: * Walking * Going up/down stairs * Showering FOR PAIN: Take 1000mg of Tylenol alternating with Ibuprofen 600mg every 3 hours. Then take oxycodone if needed. Symptoms to report to doctor: -Bleeding that saturates more than one pad per hour ?-Passing clots larger than the size of a golf ball ?-Pain not relieved by prescribed medication ?-Fever above 100.4 degrees Fahrenheit ?-A foul vaginal odor ?-Difficulty in emotions, mood and functions ?-Thoughts of hurting yourself and/or ?-Painful, reddened area in your breast ?-Any drainage, redness or tenderness in your IV/epidural site ?-Severe headache that doesn't improve after taking medications ?-Changes in vision, including temporary loss of vision, blurred vision, and/or light sensitivity ?-Upper abdominal pain (usually under ribs on the right side) ?-Decrease in urination or painful, frequent urinating ?-Chest pain ?-Shortness of breath ?-Tenderness or pain with redness and/swelling in the calf(s) of your leg Follow-up: 1. [facility] on Wednesday02/18/2024 to remove your dressing: incision check. 2. A 2 week visit to discuss control options and screen for anxiety and depression. 3. A 6 week visit for an annual physical exam. consultation services are available to all mothers and babies for the first year after delivery.? To make an appointment, please call [phone]. Activity Level: Other Discharge Diet: Regular Follow Up Appointments: Merline Barrera MD [Primary Care Provider] - [facility] [Provider Group] Forms: MyHealth Info Instructions
[2024-02-13] MEDS: SIMETHICONE 80 MG TAB.CHEW PO ×2 (08:49→12:57)
[2024-02-13] MEDS: LIDOCAINE 5% PATCH 1 PATCH TRANSDERMA (13:02)
== END 2024-02-13 13:15 | disposition home or self-care (01) | DRG 787 ==
PROVIDERS: Obstetrics & Gynecology; Admitting Provider Obstetrics & Gynecology; PCP Family Medicine; Visit Provider Obstetrics & Gynecology
PROC: (CPT 59514; principal; 2024-02-11 18:30)
DX: O62.1 Secondary uterine inertia (principal); D68.52 Prothrombin gene mutation; O10.02 Pre-existing essential hypertension complicating childbirth; O99.324 Drug use complicating childbirth; O99.344 Other mental disorders complicating childbirth; F32.A Depression, unspecified; Z3A.37 37 weeks gestation of pregnancy; Z37.0 Single live birth; G89.18 Other acute postprocedural pain; F41.0 Panic disorder [episodic paroxysmal anxiety]; F41.1 Generalized anxiety disorder; Z86.711 Personal history of pulmonary embolism; O99.62 Diseases of the digestive system complicating childbirth; K31.84 Gastroparesis; F12.90 Cannabis use, unspecified, uncomplicated; O99.334 Smoking (tobacco) complicating childbirth; F17.210 Nicotine dependence, cigarettes, uncomplicated; Z86.32 Personal history of gestational diabetes; O99.214 Obesity complicating childbirth; Z79.01 Long term (current) use of anticoagulants; O99.892 Other specified diseases and conditions complicating childbirth; N73.6 Female pelvic peritoneal adhesions (postinfective)
CPT/HCPCS: 01967; 01968; 36415; 59200; 64488; 76942; 80306; 85025; 85384; 85610; 85730; 86592; 86850; 86900; 86901; 86922; 88307; 99140; T1013; A9270; C1726; C9290; J0456; J0665; J0690; J1171; J1650; J1885; J2060; J2270; J2274; J2371; J2405; J2795; J3010; J7050; J7120

== ENCOUNTER 2024-02-15 22:37 | Emergency (ER) | payer MEDICAID, SELFPAY ==
[2024-02-15 22:44] VITALS: BP 134/82; PULSE 64; RESP 18; TEMP 36.6; O2SAT 98; BMI 41.2
[2024-02-15 22:57] VITALS: O2SAT 98
--- NOTE | 2024-02-15 22:59 | ED_ITS ---
HPI - General Adult General Chief complaint: Headache/Migraine Stated complaint: 4days /headache Time Seen by Provider: 02/15/24 22:46 Source: patient Mode of arrival: ambulatory Limitations: no limitations History of Present Illness HPI narrative: Patient is a 33-year-old postop day number 4 status post low-transverse C- section secondary to arrest of dilation who presents to the emergency department today complaining of not feeling well. Patient complains of blurry vision, headache and chest pain that has been going on for the last couple of days but worsened today. She states that she has been checking her blood pressures at home and they have been elevated. Today it was 155/95. Urinating normally, no diarrhea. No fevers or chills. No nausea or vomiting. Patient has bleeding that comes and goes. She passed a larger blood clot today but she is not soaking through pads. She is not lightheaded or dizzy. She is not short of breath. Patient does have a history of PE and is currently anticoagulated with Lovenox. Patient's chart does mention history of chronic hypertension, also states that she has been stable without any hypertensive medications. Other pertinent medical history includes anxiety, depression, history of fatty liver disease, gastroparesis, history of pulmonary embolism x2. Related Data Home Medications ?Medication ?Instructions ?Recorded ?Confirmed docosahexaenoic acid 200 mg 200 mg PO DAILY 07/28/23 02/10/24 capsule ( DHA) hydroxyzine pamoate 50 mg capsule 50 mg PO DAILY 12/01/23 02/10/24 mirtazapine 30 mg tablet 45 mg PO QHS 01/20/24 02/10/24 Previous Rx's ?Medication ?Instructions ?Recorded polyethylene glycol 3350 17 gram 17 g PO QDAY #30 ea 10/16/22 oral powder packet (Miralax) enoxaparin 100 mg/mL subcutaneous 100 mg subcut Q12H 30 days #60 mL 08/31/23 syringe omeprazole 40 mg capsule,delayed 40 mg PO QDAY 90 days #90 caps 08/31/23 release metoclopramide HCl 5 mg/5 mL oral 5 mg (5 mL) PO TID 30 days #450 mL 09/07/23 solution simethicone 125 mg chewable tablet 125 mg PO TID PRN abdominal 09/28/23 (Gas Relief (simethicone)) distention #30 tabs sucralfate 1 gram tablet 1 g PO BID #60 tabs 02/07/24 docusate sodium 100 mg capsule 100 mg PO BID PRN constipation 02/13/24 #100 caps enoxaparin 100 mg/mL subcutaneous 100 mg subcut Q12H #60 mL 02/13/24 syringe (Lovenox) ibuprofen 600 mg tablet 600 mg PO Q6H PRN Pain #30 tabs 02/13/24 lidocaine 5 % topical patch 1 patch transdermal Q24H #7 ea 02/13/24 oxycodone 5 mg tablet 5 mg PO 3XD PRN Pain #21 tabs 02/13/24 simethicone 80 mg chewable tablet 80 - 160 mg (1 - 2 x 80 mg) PO Q4H 02/13/24 PRN Gas #30 tabs lidocaine HCl 4 % topical patch 1 patch topical BID PRN pain #30 ea 02/15/24 Allergies Allergy/AdvReac Type Severity Reaction Status Date / Time No Known Drug Allergies Allergy Verified 02/10/24 16:39 Review of Systems Status of ROS: Reports: 10 or more systems reviewed and unremarkable except as noted in History and below [facility] Medical History Hypokalemia ?E87.6 - Hypokalemia (ICD-10) Chest pain ?R07.9 - Chest pain, unspecified (ICD-10) Gestational diabetes ?O24.419 - Gestational diabetes mellitus in , unspecified control (ICD-10) Chronic hypertension ?I10 - Essential (primary) hypertension (ICD-10) Nausea ?R11.0 - Nausea (ICD-10) Normal vaginal delivery (10/22/22) ?O80 - Encounter for full-term uncomplicated delivery (ICD-10) Panic attacks ?F41.0 - Panic disorder [episodic paroxysmal anxiety] (ICD-10) Depression ?F32.A - Depression, unspecified (ICD-10) Pulmonary embolism ?I26.99 - Other pulmonary embolism without acute cor pulmonale (ICD-10) Prothrombin gene mutation ?D68.52 - Prothrombin gene mutation (ICD-10) Gastritis ?K29.70 - Gastritis, unspecified, without bleeding (ICD-10) Surgical History Status post primary low transverse section (02/11/24) ?Z98.891 - History of uterine scar from previous surgery (ICD-10) S/P cholecystectomy ?Z90.49 - Acquired absence of other specified parts of digestive tract (ICD- 10) S/P laparotomy ?Z98.890 - Other specified postprocedural states (ICD-10) Social History Narrative: SOCIAL She lives in [place] with her partner, her mother, and her children. 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 He doesn't have a yard truck driver's license. What is your current living situation?: I presently have a place to live Problems where you live: no known problems In the past 12 months, utilities in danger of being shut off: no In the past 12 mos, have been you worried that your food would run out before you had money to buy more?: never true In the past 12 mos, the food you bought just didn't last and you didn't have money to buy more?: never true Smoking Status: Current every day smoker How often do you have a drink containing alcohol: never AUDIT-C Alcohol total score: 0 Non-prescribed substance use: former substance user and marijuana (any form) Non-prescribed substance use details: THC How often does anyone, including family, friends and others, physically hurt you : never How often does anyone, including family, friends and others, insult or talk down to you: never How often does anyone, including family, friends and others, threaten you with harm: never How often does anyone, including family, friends and others, scream or curse at you: never service: No Exam Narrative: Exam Narrative: Overweight, well-developed patient in no acute distress. Alert and oriented. Answers questions appropriately. Mood and affect are appropriate. Thoughts are goal oriented and rational. No tangential or magical thinking noted. Patient speaks in full sentences without needing to catch her breath. HEENT: Normocephalic atraumatic. Pupils are equally round reactive to light. Extraocular muscles are intact. Conjunctivae are moist without any icterus noted. Moist mucous membranes. Neck is soft. Cardiovascular: Heart is regular rate and rhythm S1 and S2 are present without any murmurs. Lungs: Clear to auscultation bilaterally no wheezes rhonchi or rales are appreciated. Patient takes deep breaths without any discomfort. Abdomen: Soft and nondistended with normal bowel sounds. Patient has epigastric, right upper quadrant, suprapubic discomfort. Extremities: Bilateral lower extremities are without edema. Normal DP and PT pulses. Skin: Well perfused without any obvious rashes. Const: Vital Signs, click to edit/add: Vital Signs - 24 hr 02/15/24 22:44 02/15/24 22:57 02/15/24 23:21 Temperature 97.9 F Pulse Rate 63 Pulse Rate [Pulse Oximeter] 64 Respiratory Rate 18 16 Blood Pressure 134/80 Blood Pressure [Ri ght Upper Arm] 134/82 Pulse Oximetry 98 98 98 Oxygen Delivery Me thod Room Air Room Air Course Course ED Course: Blood pressure was indeed elevated at 156/89. However this was only 1 reading. Subsequent blood pressures were in the 130s over 80s. Last blood pressure was 134/79. EKG, read by me, shows normal sinus rhythm with a pulse of 63. Blood work was unremarkable. Hemoglobin was 10.2, 10.6 at discharge. Normal platelet count. Chemistries were unremarkable. LFTs were normal. Urine showed 3+ blood, no evidence of infection. I did consult with Dr. Lord who recommends outpatient follow-up at this time. Vital Signs Vital signs: Initial Vital Signs Temperature 97.9 F 02/15/24 22:44 Temperature Source Temporal Artery Scan 02/15/24 22:44 Pulse Rate 64 02/15/24 22:44 Respiratory Rate 18 02/15/24 22:44 Blood Pressure 134/82 02/15/24 22:44 Blood Pressure Mean 99 02/15/24 22:44 Pulse Oximetry 98 02/15/24 22:44 Oxygen Delivery Method Room Air 02/15/24 22:44 Vital Signs Temperature 97.9 F 02/15/24 22:44 Pulse Rate 64 02/15/24 22:44 Respiratory Rate 18 02/15/24 22:44 Blood Pressure 134/82 02/15/24 22:44 Pulse Oximetry 98 02/15/24 22:44 Oxygen Delivery Method Room Air 02/15/24 22:44 Temperature 97.9 F 11/12/24 22:44 Pulse Rate 63 02/15/24 23:21 Respiratory Rate 16 02/15/24 23:21 Blood Pressure 134/80 02/15/24 23:21 Pulse Oximetry 98 02/15/24 23:21 Oxygen Delivery Method Room Air 02/15/24 23:21 Medical Decision Making MDM Narrative Medical decision making narrative: 33-year-old female with generalized not feeling well. Elevated blood pressure reading x1 at home and x1 in the ER today. Patient will continue monitoring her blood pressures. The consistently elevated she will return to the ER otherwise will call the OBGYN clinic. She has an appointment in 3 days already scheduled and she is encouraged to keep that appointment. Lab Data Lab results reviewed: Yes I reviewed the patient's lab results Labs: Lab Results 02/15/24 02/15/24 Range/Units 23:00 23:15 WBC 10.62 (4.50-11.00) K/uL RBC 3.56 L (4.00-5.20) m/uL Hgb 10.2 L (12.0-16.0) gm/dL Hct 31.1 L (33.0-51.0) % MCV 87 (80-100) fL MCH 29 (26-34) pg MCHC 33 (32-36) gm/dL RDW Coeff of Cira 13.2 (11.5-15.5) % Plt Count 283 (140-440) K/uL Neut % (Auto) 54.8 (42.0-72.0) % Lymph % (Auto) 36.0 (20-44) % [place] % (Auto) 6.6 (0.0-11.0) % Eos % (Auto) 1.6 (0.0-7.0) % Baso % (Auto) 0.4 (0.0-3.0) % Neut # (Auto) 5.83 (1.7-7.0) K/uL Lymph # (Auto) 3.82 H (0.90-2.90) K/uL [place] # (Auto) 0.70 (0.00-0.90) K/UL Eos # (Auto) 0.17 (0.00-0.50) K/uL Baso # (Auto) 0.04 (0.00-0.30) K/uL Abs Immat Gran (auto) 0.06 (0.00-0.30) K/uL Imm/Tot Granulo (auto) 0.6 % Sodium 137 (135-149) mmol/L Potassium 3.4 L (3.6-5.1) mmol/L Chloride 105 (96-114) mmol/L Carbon Dioxide 27 (20-32) mmol/L Anion Gap 5 L (7-15) mEq/L BUN 15 (5-24) mg/dL Creatinine 0.5 (0.5-1.5) mg/dL Estimated Creat Clear 135.61 Estimated GFR 125 ml/min Glucose 83 (60-115) mg/dL Lactate 0.6 (0.5-1.9) mmol/L Calcium 8.5 (8.4-10.6) mg/dL Magnesium 2.0 (1.5-2.6) mg/dL Total Bilirubin 0.1 (0.1-1.5) mg/dL Direct Bilirubin 0.1 (0.0-0.5) mg/dL AST 17 (12-35) U/L ALT 14 (4-35) U/L Alkaline Phosphatase 82 (40-150) U/L Total Protein 6.4 (6.0-8.3) g/dL Albumin 3.2 L (3.3-5.0) g/dL Lipase 52 (23-300) U/L Urine Color Yellow (Yellow) Urine Appearance Cloudy A (Clear) Urine pH 6.0 (5.0-8.5) Ur Specific [place] >= 1.030 (1.000-1.030) Urine Protein Negative (Negative) Urine Glucose (UA) Negative (Negative) Urine Ketones Negative (Negative) Urine Blood 3+ A (Negative) Urine Nitrite Negative (Negative) Urine Bilirubin Negative (Negative) Urine Urobilinogen 0.2 (0.2-1.0) Ur Leukocyte Esterase Negative (Negative) Urine RBC 10-25 A (0-2) Urine WBC 2-5 (0-5) Ur Squamous Epith Cells Few (None-Few) Amorphous Sediment Few A (None) Urine Bacteria Moderate A (None) Urine Mucus Few A (None) ECG Data Attestation: I personally reviewed and interpreted this ECG as follows: Discharge Plan Discharge Clinical Impression: Feeling unwell, Elevated blood pressure reading Additional Instructions: Follow-up with OBGYN as scheduled. Blood pressures readings are above 140/90, contact your OBGYN. Prescriptions: No Action DHA 200 mg capsule 200 mg PO DAILY enoxaparin 100 mg/mL syringe 100 mg subcut Q12H 30 Days Qty: 60 6RF omeprazole 40 mg capsule,delayed release(DR/EC) 40 mg PO QDAY 90 Days Qty: 90 3RF simethicone [Gas Relief (simethicone)] 125 mg tablet,chewable 125 mg PO TID PRN (Reason: abdominal distention) Qty: 30 0RF hydroxyzine pamoate 50 mg capsule 50 mg PO DAILY mirtazapine 30 mg tablet 45 mg PO QHS polyethylene glycol 3350 [Miralax] 17 gram powder in packet 17 g PO QDAY Qty: 30 0RF metoclopramide HCl 5 mg/5 mL solution 5 mg PO TID 30 Days Qty: 450 3RF sucralfate 1 gram tablet 1 g PO BID Qty: 60 0RF docusate sodium 100 mg capsule 100 mg PO BID PRN (Reason: constipation) Qty: 100 0RF enoxaparin [Lovenox] 100 mg/mL syringe 100 mg subcut Q12H Qty: 60 3RF ibuprofen 600 mg tablet 600 mg PO Q6H PRN (Reason: Pain) Qty: 30 0RF lidocaine 5 % adhesive patch,medicated 1 patch transdermal Q24H Qty: 7 0RF oxycodone 5 mg tablet 5 mg PO 3XD PRN (Reason: Pain) Qty: 21 0RF simethicone 80 mg tablet,chewable 80 - 160 mg PO Q4H PRN (Reason: Gas) Qty: 30 0RF lidocaine HCl 4 % adhesive patch,medicated 1 patch topical BID PRN (Reason: pain) Qty: 30 0RF Follow Up/Referrals: Merline Barrera MD [Primary Care Provider] -
--- OUTSIDE RECORDS SUMMARY | 2024-02-15 23:06 | XMS_ITS | Clinical Summary ---
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 Patient Care Teams Phlebotomy Specialist Relationship Specialty Start Date End Date Doctor, No No ad PCP - General Radiology 02/19/22
--- OUTSIDE RECORDS SUMMARY | 2024-02-15 23:06 | XMS_ITS | Clinical Summary ---
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 Urinalysis W Reflex Microscopic if Positive (12/17/2023 3:44 PM CDT) COLOR Yellow Yellow Color 12/17/2023 3:54 PM CDT [facility] CLARITY Clear Clear Clarity 12/17/2023 3:54 PM CDT [facility] SPECIFIC GRAVITY,URINE >=1.030(A) 1.010, 1.015, 1.020, 1.025 12/17/2023 3:54 PM CDT [facility] PH,URINE 6.0 6.0, 7.0, 8.0, 5.5, 6.5, 7.5, 8.5 12/17/2023 3:54 PM CDT [facility] UROBILINOGEN,QU ALITATIVE Normal Normal EU/dl 12/17/2023 3:54 PM T [facility] PROTEIN, URINE Trace(A) Negative mg/dL 12/17/2023 3:54 PM CDT [facility] GLUCOSE, URINE Negative Negative mg/dL 12/17/2023 3:54 PM CDT [facility] KETONES,URINE Trace(A) Negative mg/dL 12/17/2023 3:54 PM CDT [facility] BILIRUBIN,URINE Abnormal(A) Negative 12/17/19 3:54 PM CDT [facility] Comment:A variety of metabol ites and/or medications may result in a positive bilirubin result. Clinical correlation is recommended. OCCULT BLOOD,URINE Negative Negative 12/17/2023 3:54 PM CDT [facility] NITRITE Negative Negative 12/17/2023 3:54 PM CDT [facility] LEUKOCYTE ESTERASE Negative Negative 12/17/2023 3:54 PM CDT [facility] Urine URINE SPECIMEN / Unknown Non-Blood / Unknown 12/17/2023 3:44 PM CDT 12/17/2023 3:48 PM CDT Lakesha Mccray MD URINE [facility] [address] [place] [address] * Growth Follow Up Any Trimester (CPT 22095) If BPP w/NST needed use Testing section for order (12/08/2023 1:40 PM CDT) Anatomical Region Laterality Modality , 2or [...] serum screening Prothrombin gene mutation (heterozygous) 10/12/23 [facility] level II : ??EFW 328 grams [...] as recommended -Begin weekly testing scheduled with [facility] (12/09/23) ?? -Present findings are reassuring. -A follow up ultrasound for growth is recommended in 6 weeks and is scheduled today with [facility] ?? COMMENT: The patient was seen [...] as needed. Medical Decision Making: Moderate Level 06258 ?Moderate number/complexity of problems including an undiagnosed [...] Services Provided: Procedures Code FOLLOW UP GROWTH 72607.0 Procedure Note Wood Jimenez MD - 12/02/2023 Referred By: KAJAL BARRERA MD IndicationsCode 27 weeks gestation of [id number].27 Maternal Obesity - BMI >35 (39) CHTN [...] as recommended -Begin weekly testing scheduled with [facility] (12/09/23) -Present findings are reassuring. -A follow up ultrasound for growth is recommended in 6 weeks and isscheduled today with [facility] COMMENT: The patient was seen by [...] discussed asneeded. Medical Decision Making: Moderate Level 47440 Moderate number/complexity of problems including an undiagnosed [...] health, etc. Services Provided: ProceduresCode FOLLOW UP [id number] Wood Jimenez MD US * LC HCV ANTIBODY RFX TO QUANT PCR (04/08/2022 1:05 PM SOCIAL MEDIA EXECUTIVE) HCV Ab <0.1 0.0 - 0.9 s/co ratio 04/10/2022 4:08 PM SOCIAL MEDIA EXECUTIVE [facility] Blood BLOOD SPECIMEN / Unknown Venipuncture / Unknown 04/08/2022 1:05 PM SOCIAL MEDIA EXECUTIVE 04/08/2022 1:08 PM SOCIAL MEDIA EXECUTIVE Narrative [facility] - 04/10/2022 4:08 PM SOCIAL MEDIA EXECUTIVE Performed at: ??01 - [address] ??[id number] Gas Operations Superintendent: Zafar Lama MD, Phone: ??[phone] Kajal Barrera MD LABORATORY Performing Organization Address City/State/[facility] Co de Phone Number [facility] ([facility]) [address] [place] [address], * LC HIV-1/O/2, 4TH GENERATION (04/08/2022 1:05 PM SOCIAL MEDIA EXECUTIVE) HIV Scr 4th Gen Non Reactive Non Reactive 04/10/2022 9:09 AM SOCIAL MEDIA EXECUTIVE [facility] ([facility]) Comment: HIV Negative HIV-1/HIV-2 antibodies and HIV-1 p24 antigen were NOT detected. There is no laboratory evidence of HIV infection. Blood BLOOD SPECIMEN / Unknown Venipuncture / Unknown 04/08/2022 1:05 PM SOCIAL MEDIA EXECUTIVE 04/08/2022 1:08 PM SOCIAL MEDIA EXECUTIVE Narrative [facility] ([facility]) - 04/10/2022 9:09 AM SOCIAL MEDIA EXECUTIVE Performed at: ??01 - [address] ??[id number] Gas Operations Superintendent: Zafar Lama MD, Phone: ??[phone] Kajal Barrera MD LABORATORY Performing Organization Address City/[facility]/ZIP Co de Phone Number [facility] ([facility]) [address] [place] [address] * HPV HIGH RISK (12/10/2021 4:35 PM CDT) TYPE 16 Negative Negative 12/15/2021 5:37 PM CDT [facility] TYPE 18 Negative Negative 12/15/2021 5:37 PM CDT [facility] OTHER HIGH RISK TYPES Negative Negative 12/15/2021 5:37 PM CDT [facility] Other (Cervical) Non-Blood / Unknown 12/10/2021 4:35 PM CDT 12/11/2021 4:11 PM CDT Narrative [facility] - 12/15/2021 5:37 PM CDT HPV types 16, 18, 31, 33, 35, 39, 45, 51, 52, 56, 58, 59, 66 and 68 DNA were undetectable or below the pre-set threshold. Methodology: Jewels Irma 4800 HPV Test Kajal Barrera MD MICROBIOLOGY [facility]AL LABORATORY [address] [place] [address], from Last 3 Months or Most Recently [...] Comments Code Status Discussion: Discussed Care Teams Photography Editor Relationship Specialty Start Date End Date Kajal Barrera MD [address] [place] [address] PCP - General Family Practice 01/26/24 Sarwat Miles MD [address] [place] [address] Consulting Physician Surgery - General 06/09/19 Lamar Mayer RN [address] [facility] [address] [facility] [address] [place] [address] Registered Nurse Registered Nurse 06/09/[address] [facility] [address] [place] [address] Registered Dietitian Business Manager 06/09/19 Kajal Barrera MD [address] [place] [address] Referring Provider Family Practice 07/15/23
--- OUTSIDE RECORDS SUMMARY | 2024-02-15 23:06 | XMS_ITS | Referral Summary ---
Author Organization [facility] Address [address] [place] [address] Care Team Providers Care Sales And Service Specialist Name Role Phone Doctor, No Primary [...] Comments Blood Pressure 131/90 02/19/2022 6:00 PM MANAGER HARBOR Pulse 79 02/19/2022 6:00 PM MANAGER HARBOR Temperature 36.5 ??C (97.7 ??F) 02/19/2022 4:09 PM CS T Respiratory Rate 21 02/19/2022 6:00 PM MANAGER HARBOR Oxygen Saturation 99% 02/19/2022 6:00 PM MANAGER HARBOR Inhaled Oxygen Concentration - - Weight 112.5 kg (248 lb) 12/01/2012 10:03 AM CDT Height 162.6 cm (5' 4) 12/01/2012 10:03 AM CDT Body Mass Index 42.57 12/01/2012 10:03 AM CDT Plan of Treatment Not on file Advance Directives For more information, please contact: [phone] * Full Code (Latest Code Status on File) Date Activated Date Inactivated Comments 12/02/2012 1:52 PM 12/05/2012 6:57 PM Question Answer Comments How was code status determined? Patient Care Teams Sales And Service Specialist Relationship Specialty Start Date End Date Doctor, No No ad PCP - General Radiology 02/19/22
--- OUTSIDE RECORDS SUMMARY | 2024-02-15 23:06 | XMS_ITS | Referral Summary ---
Author Organization [place] Address [address] [place] [address] Care Team Providers Care Cafeteria Monitor Name Role Phone [facility], [facility] Primary Care Provider Allergies No known active allergies Medications Vit-Fe Fumarate-FA ( MULTIVITAMIN PLUS IRON) 27-0.8 MG TABS per tablet Take 1 tablet by mouth daily Active sertraline (ZOLOFT) 25 MG tabletIndications :Major depressive disorder with single episode, in full remission (H),Generalized anxiety disorder Take 1 tablet (25 mg) by mouth daily 30 tablet 7 Active ranitidine (ZANTAC) 300 MG tabletIndications :Gastroesophageal reflux disease without esophagitis Take 1 tablet (300 mg) by mouth At Bedtime 30 tablet 1 7 Active Active Problems Problem Noted Date Diagnosed Date Gastroparesis 10/13/2022 No-show for appointment 02/09/2017 Bipolar disorder, current episode mixed, moderat e 01/26/2017 NARGIS (generalized anxiety disorder) 01/26/2017 Bipolar disorder 01/25/2017 Overview (01/25/2017): Diagnosed in [place] Mixed obsessional thoughts and acts 01/25/2017 Overview (01/25/2017): Diagnosed in [place] Labor and delivery indication for care or interv ention 01/22/2017 Group beta Strep positive 01/18/2017 Overview (01/18/2017): Will need antibiotics in labor Anxiety 01/16/2017 H/O pre-eclampsia in prior , currently 01/16/2017 Moderate episode of recurrent major depressive d isorder 01/16/2017 Supervision of high risk in third trim [place] 01/16/2017 Hiatal hernia 01/16/2017 Encounter for triage in patient 017 Chronic headaches 12/03/2012 CARDIOVASCULAR SCREENING; LDL GOAL LESS THAN 160 08/07/2012 Supervision of normal first 08/07/2012 Hypertension Overview (01/15/2017): preeclamsia with first , demise depression Resolved Problems Problem Noted Date Diagnosed Date Resolved Date Pre-eclampsia in second trimester 01/16/2017 01/16/2017 Indication for care in labor or delivery 10/04/2012 12/03/2012 Constipation 08/07/2012 12/03/2012 Overview (08/07/2012): with Immunizations Name Administration Dates Next Due [...] School Help Needed Not on file 12/25 Comments No Sex and Gender Information Value Date Recorded Sex Assigned at Not on file Legal Sex Female 1:40 PM CDT Gender Identity Not on file Sexual Orientation Not on file Occupation Industry Job Start Date Job End Date Not on file Not on file Not on file Not on file Last Filed Vital Signs [...] CDT ABSTRACT HIV Routine 04/28/2022 2:58 PM FACILITY MAINTENANCE TECHNICIAN PAP IMAGED THIN LAYER SCREEN Routine 08/05/2012 [...] CDT Reshma Rosa MD LAB - BLOOD ORDERABLES Final Result UR LABORATORY [facility] [address] [facility] [place] [address], [facility] [phone] * Hepatitis C antibody (10/13/2022 1:14 PM CDT) Hepatitis C Antibody Nonreactive Nonreactive 10/14/2022 4:03 PM CDT SPECIALTY CORE/PROT/EN DO Blood BLOOD SPECIMEN / Unknown Venipuncture / Unknown 10/13/2022 1:14 PM CDT 10/13/2022 1:26 PM CDT Narrative [facility] C[facility]/PROT/ENDO - 10/14/2022 4:03 PM CDT Assay performance characteristics have not been established for newborns, infants, and children. us Leticia Victoria MD LAB - BLOOD ORDERABLES Fin al Result [facility] SPECIALTY CORE/PROT/ENDO [facility] Specialty Core/Prot/Endo [address] [facility] [address], [address] [place] [address], [facility] [phone] * ABSTRACT HIV (04/28/2022 2:58 PM FACILITY MAINTENANCE TECHNICIAN) HIV 1&2 EXT Non-Reacti ve [facility] Comment:SEE SCAN FOR REFEREN CE RANGE Blood 04/28/2022 2:58 PM FACILITY MAINTENANCE TECHNICIAN Narrative [facility] - 04/28/2022 2:58 PM FACILITY MAINTENANCE TECHNICIAN [facility] LAB RESULTS us Provider Outside LAB - HIM EXTERNAL RESULT Final Result [facility] [address] [place] [address], [facility] [phone] * PAP imaged thin layer, screen (08/05/2012 12:00 AM CDT) PAP GUILLERMINA Manzo Report Patient Name: KAYLEIGH LOCKWOOD MR#: [id number] Specimen #: [id number] Collected: 08/05/2012 Received: 08/08/2012 Reported: 08/09/2012 13:41 [...] DC Thayer (ASCP) Processed and screened at [facility], [facility] CLINICAL HISTORY: LMP: 04/21/2012 , Papanicolaou Test Limitations: ??Cervical cytology is a screening test with limited sensitivity; regular screening is critical for cancer prevention; Pap tests are primarily effective for the diagnosis/preventi on of squamous cell carcinoma, not adenocarcinomas or other cancers. TESTING LAB LOCATION: [address] ??[address] COLLECTION SITE: Client: ??[facility] Location: FP (R) COPATH Cytologic material (specimen) 08/05/2012 08/08/2012 12:52 PM CDT Berny Lopez MD LAB - OPTIME CLINICAL SPECIMEN Final Result COPATH from Last 3 Months or Most Recently Relevant to Health Maintenance Insurance [facility] Advance Directives For more information, please contact: [phone] * Full Code (Latest Code Status on File) Date Activated Date Inactivated Comments 10/13/2022 12:39 PM 10/16/2022 4:16 PM All basic a nd advanced life-sustaining interventions are performed as appropriate Question Answer Comments Code status determined by: Unable to dis cuss and no AD/POLST on file; continue PREVIOUSLY ORDERED code status Care Teams Cafeteria Monitor Relationship Specialty Start Date End Date [address] [address] PCP - General 09/25/18
--- OUTSIDE RECORDS SUMMARY | 2024-02-15 23:06 | XMS_ITS | Clinical Summary ---
Author Organization [place] Address [address] [place] [address] Care Team Providers Care General Intern Name Role Phone [facility], [facility] Primary Care Provider Allergies No known [...] Bipolar disorder 01/25/2017 Overview (01/25/2017): Diagnosed in [place] Mixed obsessional thoughts and acts 01/25/2017 Overview (01/25/2017): Diagnosed in [place] Labor and delivery indication for care or [...] 10/03, 10/14/2022, Additional history exists COVID-19 Vaccine ( season) 2023 04/22/2022, 01/14/2021, 12/23/2020 INFLUENZA VACCINE (#1) 2023 [...] CDT ABSTRACT HIV Routine 04/28/2022 2:58 PM AUDIO VISUAL MANAGER PAP IMAGED THIN LAYER SCREEN Routine [...] - BLOOD ORDERABLES Final Result UR LABORATORY [facility] [address] [facility] [place] [address], [facility] [phone] * Hepatitis C antibody (10/13/2022 1:14 PM [...] [facility] [address] [facility] [address] [place] [address], [facility] [phone] * ABSTRACT HIV (04/28/2022 2:58 PM AUDIO VISUAL MANAGER) HIV 1&2 EXT Non-Reacti ve [facility] Comment:SEE SCAN FOR REFEREN CE RANGE Blood 04/28/2022 2:58 PM AUDIO VISUAL MANAGER Narrative [facility] - 04/28/2022 2:58 PM AUDIO VISUAL MANAGER [facility] LAB RESULTS us Provider Outside LAB - HIM EXTERNAL RESULT Final Result [facility] [address] [place] [address], [facility] [phone] * PAP imaged thin layer, screen (08/05/2012 12:00 AM CDT) PAP GUILLERMINA Manzo Report Patient Name: KAYLEIGH LOCKWOOD MR#: [id number] Specimen #: [id number] Collected: 08/05/2012 Received: 08/08/2012 Reported: 08/09/2012 13:41 [...] DC Thayer (ASCP) Processed and screened at [facility], [facility] CLINICAL HISTORY: LMP: 04/21/2012 , Papanicolaou Test Limitations: ??Cervical cytology is a screening test with limited sensitivity; regular screening is critical for cancer prevention; Pap tests are primarily effective for the diagnosis/preventi on of squamous cell carcinoma, not adenocarcinomas or other cancers. TESTING LAB LOCATION: [address] ??[phone] COLLECTION SITE: Client: ??[facility] Location: FP (R) COPATH Cytologic material (specimen) 08/05/2012 08/08/2012 12:52 PM CDT Berny Lopez MD LAB - OPTIME CLINICAL SPECIMEN Final Result COPATH from Last 3 Months or Most Recently Relevant to Health Maintenance Insurance [facility] Advance Directives For more information, please contact: [phone] * Full Code (Latest Code Status on File) Date Activated Date Inactivated Comments 10/13/2022 12:39 PM 10/16/2022 4:16 PM All basic a nd advanced life-sustaining interventions are performed as appropriate Question Answer Comments Code status determined by: Unable to dis cuss and no AD/POLST on file; continue PREVIOUSLY ORDERED code status Care Teams General Intern Relationship Specialty Start Date End Date [address] [address] PCP - General 09/25/18
[2024-02-15 23:10] LABS: Appearance Urine Cloudy (Clear); Bilirubin Urine Negative (Negative); Blood Urine 3+ (Negative); Color Urine Yellow (Yellow); Glucose Urine Negative (Negative); Ketones Urine Negative (Negative); Leukocyte Esterase Urine Negative (Negative); Nitrite Urine Negative (Negative); Protein Urine Negative (Negative); Specific Gravity Urine >= 1.030 (1.000-1.030); Urobilinogen Urine 0.2 (0.2-1.0)
[2024-02-15 23:21] VITALS: BP 134/80; PULSE 63; RESP 16; O2SAT 98
[2024-02-15 23:21] LABS: Amorphous Sediment Urine Few; Bacteria Urine Moderate; Mucus Urine Few; Squamous Epithelial Cell Urine Few (None-Few)
[2024-02-15 23:25] LABS: Lactate* 0.6 mmol/L (0.5-1.9)
[2024-02-15 23:28] LABS: Basophils Absolute Auto 0.04 K/uL (0.00-0.30); Basophils Percent Auto 0.4 % (0.0-3.0); Eosinophils Absolute Auto 0.17 K/uL (0.00-0.50); Eosinophils Percent Auto 1.6 % (0.0-7.0); Hematocrit 31.1 % (33.0-51.0); Hemoglobin* 10.2 gm/dL (12.0-16.0); Immature Granulocytes Abs Auto 0.06 K/uL (0.00-0.30); Immature Granulocytes Pct Auto 0.6 %; Lymphocytes Absolute Auto 3.82 K/uL (0.90-2.90); Mean Corpuscular HGB Conc 33 gm/dL (32-36); Mean Corpuscular Hemoglobin 29 pg (26-34); Mean Corpuscular Volume 87 fL (80-100); Monocytes Percent Auto 6.6 % (0.0-11.0); Neutrophils Absolute Auto 5.83 K/uL (1.7-7.0); Neutrophils Percent Auto 54.8 % (42.0-72.0); Platelet Count* 283 K/uL (140-440); RDW Coefficient of Variation % 13.2 % (11.5-15.5); Red Blood Count 3.56 m/uL (4.00-5.20); White Blood Count* 10.62 K/uL (4.50-11.00)
[2024-02-15 23:34] LABS: Slide Review Reflex No
[2024-02-15 23:41] LABS: Albumin* 3.2 g/dL (3.3-5.0); Chloride* 105 mmol/L (96-114)
[2024-02-15 23:42] VITALS: BP 134/79; PULSE 59; O2SAT 97
[2024-02-15 23:42] LABS: Potassium* 3.4 mmol/L (3.6-5.1); Sodium* 137 mmol/L (135-149)
[2024-02-15 23:44] LABS: Anion Gap 5 mEq/L (7-15); Aspartate Amino Transferase* 17 U/L (12-35); Bilirubin Direct* 0.1 mg/dL (0.0-0.5); Bilirubin Total* 0.1 mg/dL (0.1-1.5); Blood Urea Nitrogen* 15 mg/dL (5-24); Carbon Dioxide* 27 mmol/L (20-32); Creatinine* 0.5 mg/dL (0.5-1.5); Est. Creatinine Clearance* 135.61; Estimated Glomerular Filt Rate 125 ml/min; Total Protein* 6.4 g/dL (6.0-8.3)
[2024-02-15 23:45] LABS: Alanine Aminotransferase* 14 U/L (4-35); Alkaline Phosphatase* 82 U/L (40-150); Calcium* 8.5 mg/dL (8.4-10.6); Glucose* 83 mg/dL (60-115); Lipase* 52 U/L (23-300)
[2024-02-15 23:59] LABS: Troponin I* < 0.01 ng/mL (0.01-0.04)
[2024-02-16] VITALS: PULSE 59; O2SAT 97
--- NOTE | 2024-02-16 16:11 | PC.SOCIAL ---
Following up on CPS report, oncology social work faxed umb cord blood report to [facility] CPS. Fax number: [phone].
--- NOTE | 2024-02-16 16:13 | PC.CPCO ---
Following up on CPS report, child protective services social worker faxed umb cord blood report to [facility] CPS. Fax number: [phone].
== END 2024-02-16 00:10 | disposition home or self-care (01) ==
LOC: ED 23:03
PROVIDERS: Emergency Provider Family Medicine; PCP Family Medicine
DX: R51.9 Headache, unspecified (principal); I10 Essential (primary) hypertension
CPT/HCPCS: 36415; 80048; 80076; 81001; 83605; 83690; 83735; 84484; 85025; 87086; 93005; 94761; 99284

== ENCOUNTER 2024-02-17 13:01 | Outpatient (CLI) | payer MEDICAID, SELFPAY | END 2024-02-17 13:02 | disposition home or self-care (01) | PROVIDERS: PCP Family Medicine; Visit Provider Obstetrics & Gynecology | DX: Z39.2 Encounter for routine postpartum follow-up (principal) | CPT/HCPCS: 82565; 84450; 84460; 84520 ==

== ENCOUNTER 2024-02-24 11:55 | Inpatient (IN) | payer MEDICAID, SELFPAY ==
[2024-02-24] VITALS (8 sets, daily range): BP systolic 102–121; BP diastolic 65–90; PULSE 60–84; RESP 16–18; TEMP 36.1–36.8; O2SAT 95–99; BMI 41.2; BMI 40.5
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
--- NOTE | 2024-02-24 12:59 | CRLHL7_ITS ---
For Patients: As a result of the Century Cures Act, medical imaging exams and procedure reports are released immediately into your electronic medical record. You may view this report before your referring provider. If you have questions, please contact your health care provider. INDICATION: Chest pain. Rule out PE. Infection associated with recent . COMPARISON: None TECHNIQUE: : CT examination of the chest was performed with the uneventful intravenous administration of 95 cc of Isovue 370 while thin axial sections were obtained from above the apices of the lungs to the lung bases. The examination was timed as a pulmonary artery angiogram. Please note that all CT scans at this facility use dose modulation, iterative reconstruction, and/or weight-based dosing when appropriate to reduce radiation dose to as low as reasonably achievable. FINDINGS: : HEART and MEDIASTINUM: The heart size is normal. There is no mediastinal or hilar adenopathy or mass. There is no pericardial effusion. PULMONARY ARTERIAL CIRCULATION: There is no visible intraluminal filling defect to suggest pulmonary embolus. LUNGS and PLEURAL SPACES: The lungs show no focal consolidation or mass. The airways appear normal.There is no pleural effusion, pneumothorax or pleural based mass. VISUALIZED UPPER ABDOMEN: The limited visualized upper abdominal structures appear normal. OSSEOUS STRUCTURES: Age-appropriate appearance. No acute fracture or destructive process. TUBES and LINES: None. IMPRESSION: No findings of pulmonary embolus. Lungs and pleural spaces appear normal. Please note that all CT scans at this facility use dose modulation, iterative reconstruction, and/or weight-based dosing when appropriate to reduce radiation dose to as low as reasonably achievable. Dictated by Erik Yen MD @ 02/24/2024 1:46:15 PM (Electronically Signed)
--- NOTE | 2024-02-24 12:59 | CRLHL7_ITS ---
For Patients: As a result of the Century Cures Act, medical imaging exams and procedure reports are released immediately into your electronic medical record. You may view this report before your referring provider. If you have questions, please contact your health care provider. INDICATION: Suspect infection associated with . COMPARISON: [facility] abdomen and pelvis study dated February 18, 2018 TECHNIQUE: CT examination of the abdomen and pelvis was performed following the uneventful intravenous administration of 95 cc of Isovue 370. Thin section axial images were obtained from the lung bases through the pubic symphysis. Oral contrast was not administered. Please note that all CT scans at this facility use dose modulation, iterative reconstruction, and/or weight-based dosing when appropriate to reduce radiation dose to as low as reasonably achievable. FINDINGS: LUNG BASES: The lung bases as visualized appear normal.The heart size is normal at the lung bases. LIVER/BILIARY SYSTEM:Normal-sized liver. Low-density but non cystic lesion in the posterior segment of the right lobe of the liver. This was not apparently present on the prior study.Recommend that this be formally evaluated at a clinically appropriate time. An ultrasound might be able to determine whether this is a hemangioma. MRI may ultimately be required. No intra or extrahepatic biliary ductal dilation the gallbladder is surgically absent ADRENALS: Normal KIDNEYS, URETERS and BLADDER:The kidneys appear normal. No visible mass, calculus or hydronephrosis. The ureters and bladder as visualized appear normal. SPLEEN:Normal appearance. PANCREAS: Appears normal. RETROPERITONEUM and MESENTERY: There is no mass, adenopathy or aortic aneurysm. GASTROINTESTINAL SYSTEM: There is no evidence of diverticulitis, colitis, mechanical obstruction, or appendicitis. The small bowel as visualized appears normal. PELVIS: There is an enlarged uterus consistent with a recent delivery. A incision is noted in the lower uterine segment anterior myometrium, an expected finding. There is still gas within the endometrial canal or any obvious retained tissue within the endometrial canal. OSSEOUS STRUCTURES and ABDOMINAL WALL: There are changes in the anterior abdominal wall consistent with a Pfannenstiel incision through the muscular layers. No unexpected findings in this regard. There are inflammatory changes in the fatty tissue of the anterior abdominal wall probably representing cellulitis/panniculitis. Somewhat unusually, there are multiple rounded partially fluid-filled structures in the subcutaneous fat which probably represent small abscesses within the fatty tissue. Instrumentation size up to about 2 centimeters. For example, 1 of the larger such lesions is subcutaneous right lower quadrant series 2, image 114.There is no acute osseous abnormality. OTHER: No free fluid or free air. IMPRESSION: 1. Indeterminate hepatic lesion for which follow-up evaluation is recommended. Statistically this is most likely a hemangioma though it was not clearly present previously. Sonography may prove useful though MRI may ultimately be required. 2. Changes in the uterus consistent with a recent . No unexpected findings in this regard. There also similar such changes in the muscular layer of the anterior abdominal wall from a Pfannenstiel incision. 3. Streaky inflammatory changes in the fatty tissue of the lower abdominal wall near the incision likely representing cellulitis/panniculitis. There are also multiple rounded subcutaneous structures within the fatty tissue which probably represent multiple small fatty abscesses within the fatty tissue. Please note that all CT scans at this facility use dose modulation, iterative reconstruction, and/or weight-based dosing when appropriate to reduce radiation dose to as low as reasonably achievable. Dictated by Erik Yen MD @ 02/24/2024 1:56:41 PM (Electronically Signed)
[2024-02-24 13:43] LABS: Basophils Absolute Auto 0.03 K/uL (0.00-0.30); Basophils Percent Auto 0.4 % (0.0-3.0); Eosinophils Absolute Auto 0.13 K/uL (0.00-0.50); Eosinophils Percent Auto 1.5 % (0.0-7.0); Hematocrit 43.3 % (33.0-51.0); Hemoglobin* 13.9 gm/dL (12.0-16.0); Immature Granulocytes Abs Auto 0.01 K/uL (0.00-0.30); Immature Granulocytes Pct Auto 0.1 %; Lymphocytes Percent Auto 34.1 % (20-44); Mean Corpuscular HGB Conc 32 gm/dL (32-36); Mean Corpuscular Hemoglobin 28 pg (26-34); Mean Corpuscular Volume 88 fL (80-100); Monocytes Percent Auto 5.3 % (0.0-11.0); Neutrophils Absolute Auto 4.99 K/uL (1.7-7.0); Neutrophils Percent Auto 58.6 % (42.0-72.0); Platelet Count* 377 K/uL (140-440); RDW Coefficient of Variation % 13.3 % (11.5-15.5); Red Blood Count 4.91 m/uL (4.00-5.20); White Blood Count* 8.51 K/uL (4.50-11.00)
[2024-02-24 13:49] LABS: Slide Review Reflex No
--- OUTSIDE RECORDS SUMMARY | 2024-02-24 14:02 | XMS_ITS | Clinical Summary ---
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 [facility] BILIRUBIN,URINE Abnormal(A) Negative 12/17/19 3:54 PM T [facility] Comment:A variety of metabol ites and/or medications may result in a positive bilirubin result. Clinical correlation is recommended. OCCULT BLOOD,URINE Negative Negative 12/17/2023 3:54 PM T [facility] NITRITE Negative Negative 12/17/2023 3:54 PM T [facility] LEUKOCYTE ESTERASE Negative Negative 12/17/2023 3:54 PM T [facility] Urine URINE SPECIMEN / Unknown Non-Blood / Unknown 12/17/2023 3:44 PM CDT 12/17/2023 3:48 PM CDT Lakesha Mccray MD URINE Performing Organization Address City/State/[facility] Co de Phone Number [facility] [address] [place] [address] * Growth Follow Up Any Trimester (CPT 83725) If BPP w/NST needed use Testing section for order (12/08/2023 1:40 PM CDT) Anatomical Region Laterality Modality , 2or 3 TRIMESTER Ultrasound 12/02/2023 10:1 9 AM CDT Narrative 12/02/2023 10:59 AM CDT Referred By: KAJAL BARRERA MD Indications Code 27 weeks gestation of Z3A.27 Maternal Obesity - BMI >35 (39) CHTN - no meds Hx IUFD at 31w6d Hx of PE x2 [facility] consult Dr. Odell 08/09/23 Meds - Lovenox [...] as recommended -Begin weekly testing scheduled with [facility] (12/09/23) -Present findings are reassuring. -A follow up ultrasound for growth is recommended in 6 weeks and is scheduled today with [facility] COMMENT: The patient was seen by [...] as needed. Medical Decision Making: Moderate Level 25387 Moderate number/complexity of problems including an undiagnosed [...] Services Provided: Procedures Code FOLLOW UP GROWTH 02699.0 Procedure Note Wood Jimenez MD - 12/02/2023 Referred By: KAJAL BARRERA MD IndicationsCode 27 weeks gestation of [id number].27 Maternal Obesity - BMI >35 (39) CHTN [...] as recommended -Begin weekly testing scheduled with [facility] (12/09/23) -Present findings are reassuring. -A follow up ultrasound for growth is recommended in 6 weeks and isscheduled today with [facility] COMMENT: The patient was seen by [...] discussed asneeded. Medical Decision Making: Moderate Level 57677 Moderate number/complexity of problems including an undiagnosed [...] health, etc. Services Provided: ProceduresCode FOLLOW UP [id number] Wood Jimenez MD US * LC HCV ANTIBODY RFX TO QUANT PCR (04/08/2022 1:05 PM FILLER SHAKER) HCV Ab <0.1 0.0 - 0.9 s/co ratio 04/10/2022 4:08 PM FILLER SHAKER [facility] Blood BLOOD SPECIMEN / Unknown Venipuncture / Unknown 04/08/2022 1:05 PM FILLER SHAKER 04/08/2022 1:08 PM FILLER SHAKER Narrative [facility] - 04/10/2022 4:08 PM FILLER SHAKER Performed at: 01 - [address] [id number] Lacquer Sizer: Zafar Lama MD, Phone: [phone] Kajal Barrera MD LABORATORY Performing Organization Address City/[facility]/ZIP Co de Phone Number [facility] ([facility]) [address] [place] [address] * LC HIV-1/O/2, 4TH GENERATION (04/08/2022 1:05 PM FILLER SHAKER) HIV Scr 4th Gen Non Reactive Non Reactive 04/10/2022 9:09 AM FILLER SHAKER [facility] ([facility]) Comment: HIV Negative HIV-1/HIV-2 antibodies and HIV-1 p24 antigen were NOT detected. There is no laboratory evidence of HIV infection. Blood BLOOD SPECIMEN / Unknown Venipuncture / Unknown 04/08/2022 1:05 PM FILLER SHAKER 04/08/2022 1:08 PM FILLER SHAKER Narrative [facility] ([facility]) - 04/10/2022 9:09 AM FILLER SHAKER Performed at: - [address] [id number] Lacquer Sizer: Zafar Lama MD, Phone: [phone] Kajal Barrera MD LABORATORY Performing Organization Address [facility] Co de Phone Number [facility] ([facility]) [address] [place] [address] * HPV HIGH RISK (12/10/2021 4:35 PM CDT) TYPE 16 Negative Negative 12/15/2021 5:37 PM CDT [facility] TYPE 18 Negative Negative 12/15/2021 5:37 PM CDT [facility] OTHER HIGH RISK TYPES Negative Negative 12/15/2021 5:37 PM CDT [facility] Other (Cervical) Non-Blood / Unknown 12/10/2021 4:35 PM CDT 12/11/2021 4:11 PM CDT Narrative [facility] - 12/15/2021 5:37 PM CDT HPV types 16, 18, 31, 33, 35, 39, 45, 51, 52, 56, 58, 59, 66 and 68 DNA were undetectable or below the pre-set threshold. Methodology: Jewels Irma 4800 HPV Test Kajal Barrera MD MICROBIOLOGY [facility] [address] [place] [address], from Last 3 Months or Most Recently [...] Comments Code Status Discussion: Discussed Care Teams Car Lot Attendant Relationship Specialty Start Date End Date Kajal Barrera MD [address] [place] [address] PCP - General Family Practice 01/26/24 Sarwat Miles MD [address] [place] [address] Consulting Physician Surgery - General 06/09/19 Lamar Mayer RN [address] [place] [address] Registered Nurse Registered Nurse 06/09/[address] [place] [address] Registered Dietitian Transplant Coordinator 06/09/19 Kajal Barrera MD [address] [place] [address] Referring Provider Family Practice 07/15/23
--- OUTSIDE RECORDS SUMMARY | 2024-02-24 14:02 | XMS_ITS | Referral Summary ---
Author Organization [facility] Address [address] [place] [address] Care Team Providers Care Vaccine Customer Representative Name Role Phone Doctor, No Primary Care Provider Unavailabl e Allergies No known active allergies Medications amitriptyline (ELAVIL) 10 mg oral tablet Take 1 tablet (10 mg) by mouth at bedtime. 2 Active dicyclomine (BENTYL) 20 mg oral tablet Take 1 tablet (20 mg) by mouth three times a day. 2 Active famotidine (PEPCID) 40 mg oral tablet Take 1 tablet (40 mg) by mouth once daily. 2 Active gabapentin (NEURONTIN) 300 mg oral capsule Take 1 capsule (300 mg) by mouth Twice a Day. Take 1 capsule daily in the morning, 1 capsule daily in the afternoon, and 3 capsules nightly before bed. 2 Active lubiprostone (AMITIZA) 24 mcg oral Cap Take 1 capsule (24 mcg) by mouth twice a day before breakfast and dinner. 2 Active metFORMIN (GLUCOPHAGE) 500 mg oral tablet Take 1 tablet (500 mg) by mouth twice a day with breakfast and dinner. 1 Active propranoloL (INDERAL) 20 mg oral tablet Take 1 tablet (20 mg) by mouth twice a day. 1 Active QUEtiapine (SEROQUEL) 300 mg oral tablet Take 1 tablet (300 mg) by mouth at bedtime. 1 Active sertraline (ZOLOFT) 100 mg oral tablet Take 1.5 tablets (150 mg) by mouth once daily. 2 Active sucralfate (CARAFATE) 1 gram oral tablet Take 1 tablet (1 g) by mouth three times a day before meals and at bedtime. 2 Active gabapentin (NEURONTIN) 300 mg oral capsule Take 3 capsules (900 mg) by mouth at bedtime. Active omeprazole (PRILOSEC) 40 mg oral delayed release capsule Take 1 capsule (40 mg) by mouth every morning before breakfast. 1 Active Active Problems Problem Noted Date Diagnosed [...] drink = 0.6 oz pur e alcohol) Comments Unknown Sex and Gender Information Value Date Recorded Sex Assigned at Not on file Legal Sex Female 2:38 PM CDT Gender Identity Not on file Sexual Orientation Not on file Last Filed Vital Signs Vital Sign Reading Time Taken Comments Blood Pressure 131/90 02/19/2022 6:00 PM PATTERN CHAIN BUILDER Pulse 79 02/19/2022 6:00 PM PATTERN CHAIN BUILDER Temperature 36.5 C (97.7 F) 02/19/2022 4:09 PM PATTERN CHAIN BUILDER Respiratory Rate 21 02/19/2022 6:00 PM PATTERN CHAIN BUILDER Oxygen Saturation 99% 02/19/2022 6:00 PM PATTERN CHAIN BUILDER Inhaled Oxygen Concentration - - Weight 112.5 kg (248 lb) 12/01/2012 10:03 AM CDT Height 162.6 cm (5' 4) 12/01/2012 10:03 AM CDT Body Mass Index 42.57 12/01/2012 10:03 AM CDT Plan of Treatment Not on file Insurance [facility] Advance Directives For more information, please contact: [phone] * Full Code (Latest Code Status on File) Date Activated Date Inactivated Comments 12/02/2012 1:52 PM 12/05/2012 6:57 PM Question Answer Comments How was code status determined? Patient Care Teams Vaccine Customer Representative Relationship Specialty Start Date End Date Doctor, No No ad PCP - General Radiology 02/19/22
--- OUTSIDE RECORDS SUMMARY | 2024-02-24 14:02 | XMS_ITS | Clinical Summary ---
Author Organization [facility] Address [address] [place] [address] Care Team Providers Care Enterprise Resource Planner Name Role Phone [facility], [facility] Primary Care Provider Allergies No known active [...] Bipolar disorder 01/25/2017 Overview (01/25/2017): Diagnosed in [place] Mixed obsessional thoughts and acts 01/25/2017 Overview (01/25/2017): Diagnosed in [place] Labor and delivery indication for care or [...] 109 09/25/2018 7:03 PM CDT Temperature 36.7 C (98.1 F) 10/16/2022 5:50 AM CDT Respiratory Rate 18 10/16/2022 5:50 AM CDT [...] CDT ABSTRACT HIV Routine 04/28/2022 2:58 PM FINANCIAL MANAGEMENT PAP IMAGED THIN LAYER SCREEN Routine 08/05/2012 [...] - BLOOD ORDERABLES Final Result UR LABORATORY [facility] Acute Care Lab [address] [facility], [address] [place] [address], [facility] [phone] * Hepatitis C antibody (10/13/2022 1:14 PM [...] UM SPECIALTY CORE/PROT/ENDO UM Specialty Core/Prot/Endo [address] [facility] [address], Room [address] [place] [address], [facility] [phone] * ABSTRACT HIV (04/28/2022 2:58 PM FINANCIAL MANAGEMENT) Pathologist [facility] HIV 1&2 EXT Non-Reacti ve [facility] Comment:SEE SCAN FOR REFEREN CE RANGE Blood 04/28/2022 2:58 PM FINANCIAL MANAGEMENT Narrative [facility] - 04/28/2022 2:58 PM FINANCIAL MANAGEMENT [facility] LAB RESULTS us Provider Outside LAB - HIM EXTERNAL RESULT Final Result [facility] [address] [place] [address], [facility] [phone] * PAP imaged thin layer, screen (08/05/2012 12:00 AM CDT) PAP GULILERMINA Manzo Report Patient Name: KAYLEIGH LOCKWOOD MR#: [id number] Specimen #: [id number] Collected: 08/05/2012 Received: 08/08/2012 Reported: 08/09/2012 13:41 Ordering Phy(s): BERNY LOPEZ SPECIMEN/STAIN PROCESS: Pap imaged thin layer prep screening (Surepath, FocalPoint with guided screening) Pap-Cyto x 1, Reflex HPV x 1 SOURCE: Cervical Pap imaged thin layer prep screening (Surepath, FocalPoint with guided screening) SPECIMEN ADEQUACY: Satisfactory for evaluation. -Transformation zone component present. CYTOLOGIC INTERPRETATION: Negative for Intraepithelial Lesion or Malignancy Electronically signed out by: DC Thayer (ASCP) Processed and screened at [facility], [facility] CLINICAL HISTORY: LMP: 04/21/2012 , Papanicolaou Test Limitations: Cervical cytology is a screening test with limited sensitivity; regular screening is critical for cancer prevention; Pap tests are primarily effective for the diagnosis/preventi on of squamous cell carcinoma, not adenocarcinomas or other cancers. TESTING LAB LOCATION: [facility] [address] [place] [address] COLLECTION SITE: Client: [facility] Location: RMFP (R) COPATH Cytologic material (specimen) 08/05/2012 08/08/2012 12:52 PM CDT Berny Lopez MD LAB - OPTIME CLINICAL SPECIMEN Final Result COPATH from Last 3 Months or Most Recently Relevant to Health Maintenance Insurance [facility] none (Work) [id number] [place] [id number] Advance Directives For more information, please contact: [phone] * Full Code (Latest Code Status on File) Date Activated Date Inactivated Comments 10/13/2022 12:39 PM 10/16/2022 4:16 PM All basic a nd advanced life-sustaining interventions are performed as appropriate Question Answer Comments Code status determined by: Unable to dis cuss and no AD/POLST on file; continue PREVIOUSLY ORDERED code status Care Teams Enterprise Resource Planner Relationship Specialty Start Date End Date [address] [address] PCP - General 09/25/18
--- OUTSIDE RECORDS SUMMARY | 2024-02-24 14:02 | XMS_ITS | Referral Summary ---
Author Organization [place] Address [address] [place] [address] Care Team Providers Care Supervisor Rice Milling Name Role Phone [facility], [facility] Primary Care Provider Allergies No known active [...] Bipolar disorder 01/25/2017 Overview (01/25/2017): Diagnosed in [place] Mixed obsessional thoughts and acts 01/25/2017 Overview (01/25/2017): Diagnosed in [place] Labor and delivery indication for care or [...] ABSTRACT HIV Routine 04/28/2022 2:58 PM FINANCIAL SERVICES EDUCATION CONSULTANT PAP IMAGED THIN LAYER SCREEN Routine 08/05/2012 [...] - BLOOD ORDERABLES Final Result UR LABORATORY [facility] Acute Care Lab [address] [facility] [place] [address], [facility] [phone] * Hepatitis C antibody (10/13/2022 1:14 PM [...] UM SPECIALTY CORE/PROT/ENDO UM Specialty Core/Prot/Endo [address] [facility] [address], Room [address] [place] [address], [facility] [phone] * ABSTRACT HIV (04/28/2022 2:58 PM FINANCIAL SERVICES EDUCATION CONSULTANT) Pathologist [facility] HIV 1&2 EXT Non-Reacti ve [facility] Comment:SEE SCAN FOR REFEREN CE RANGE Blood 04/28/2022 2:58 PM FINANCIAL SERVICES EDUCATION CONSULTANT Narrative [facility] - 04/28/2022 2:58 PM FINANCIAL SERVICES EDUCATION CONSULTANT [facility] LAB RESULTS us Provider Outside LAB - HIM EXTERNAL RESULT Final Result [facility] [address] [place] [address], [facility] [phone] * PAP imaged thin layer, screen (08/05/2012 12:00 AM CDT) PAP GUILLERMINA Manzo Report Patient Name: KAYLEIGH LOCKWOOD MR#: [id number] Specimen #: [id number] Collected: 08/05/2012 Received: 08/08/2012 Reported: 08/09/2012 13:41 [...] DC Thayer (ASCP) Processed and screened at [facility], [facility] CLINICAL HISTORY: LMP: 04/21/2012 , Papanicolaou Test Limitations: Cervical cytology is a screening test with limited sensitivity; regular screening is critical for cancer prevention; Pap tests are primarily effective for the diagnosis/preventi on of squamous cell carcinoma, not adenocarcinomas or other cancers. TESTING LAB LOCATION: [facility] [address] [place] [address] COLLECTION SITE: Client: [facility] Location: RMFP (R) COPATH Cytologic material (specimen) 08/05/2012 08/08/2012 12:52 PM CDT Berny Sergei Lopez MD LAB - OPTIME CLINICAL SPECIMEN Final Result COPATH from Last 3 Months or Most Recently Relevant to Health Maintenance Insurance [facility] none (Work) [id number] [place] [id number] Advance Directives For more information, please contact: [phone] * Full Code (Latest Code Status on File) Date Activated Date Inactivated Comments 10/13/2022 12:39 PM 10/16/2022 4:16 PM All basic a nd advanced life-sustaining interventions are performed as appropriate Question Answer Comments Code status determined by: Unable to dis cuss and no AD/POLST on file; continue PREVIOUSLY ORDERED code status Care Teams Supervisor Rice Milling Relationship Specialty Start Date End Date [facility], [address] [address] PCP - General 09/25/18
--- OUTSIDE RECORDS SUMMARY | 2024-02-24 14:02 | XMS_ITS | Clinical Summary ---
Author Organization [facility] Address [address] [place] [address] Care Team Providers Care Top Cleaner Name Role Phone Doctor, No Primary Care [...] Maternal Grandmother Diabetes Maternal Grandmother Cancer Mother cvir tech cancer of un known origin to patient [...] Comments Blood Pressure 131/90 02/19/2022 6:00 PM STORE PROTECTION SPECIALIST Pulse 79 02/19/2022 6:00 PM STORE PROTECTION SPECIALIST Temperature 36.5 C (97.7 F) 02/19/2022 4:09 PM STORE PROTECTION SPECIALIST Respiratory Rate 21 02/19/2022 6:00 PM STORE PROTECTION SPECIALIST Oxygen Saturation 99% 02/19/2022 6:00 PM STORE PROTECTION SPECIALIST Inhaled Oxygen Concentration - - Weight 112.5 [...] on patient's age to complete this topic Insurance [facility] Advance Directives For more information, please contact: [phone] * Full Code (Latest Code Status on File) Date Activated Date Inactivated Comments 12/02/2012 1:52 PM 12/05/2012 6:57 PM Question Answer Comments How was code status determined? Patient Care Teams Top Cleaner Relationship Specialty Start Date End Date Doctor, No No ad PCP - General Radiology 02/19/22
[2024-02-24] MEDS: HYDROmorphone 0.5 mg/0.5 ml inj IVP ×3 (14:03→23:38)
[2024-02-24] MEDS: PIPERACILLIN/TAZOBACTAM 4.5 GM in 0.9 % SODIUM CHLORIDE Mini-bag 100 ML IVPB (14:03)
[2024-02-24] MEDS: ONDANSETRON 2 MG/ML inj 4 MG IVP (14:03)
[2024-02-24 14:08] LABS: Albumin* 4.3 g/dL (3.3-5.0); Chloride* 105 mmol/L (96-114)
[2024-02-24 14:09] LABS: Potassium* 4.7 mmol/L (3.6-5.1); Sodium* 137 mmol/L (135-149)
[2024-02-24 14:11] LABS: Alkaline Phosphatase* 61 U/L (40-150); Anion Gap 9 mEq/L (7-15); Aspartate Amino Transferase* 34 U/L (12-35); Bilirubin Total* 0.5 mg/dL (0.1-1.5); Blood Urea Nitrogen* 12 mg/dL (5-24); Carbon Dioxide* 23 mmol/L (20-32); Creatinine* 0.6 mg/dL (0.5-1.5); Est. Creatinine Clearance* 113.01; Estimated Glomerular Filt Rate 120 ml/min
[2024-02-24 14:12] LABS: Alanine Aminotransferase* 22 U/L (4-35); Calcium* 9.3 mg/dL (8.4-10.6); Glucose* 85 mg/dL (60-115)
[2024-02-24 14:23] LABS: Troponin I* 0.03 ng/mL (0.01-0.04)
[2024-02-24 15:06] LABS: Appearance Urine Clear (Clear); Bilirubin Urine Negative (Negative); Blood Urine 3+ (Negative); Color Urine Yellow (Yellow); Glucose Urine Negative (Negative); Ketones Urine Negative (Negative); Leukocyte Esterase Urine Negative (Negative); Nitrite Urine Negative (Negative); Protein Urine Negative (Negative); Specific Gravity Urine 1.015 (1.000-1.030); Urobilinogen Urine 0.2 (0.2-1.0)
[2024-02-24 15:16] LABS: RBC Urine 0-2 (0-2); WBC Urine 0-2 (0-5)
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
--- OUTSIDE RECORDS SUMMARY | 2024-02-24 15:47 | XMS_ITS | Clinical Summary ---
Author Organization [facility] Address [address] [place] [id number] Care Team Providers Care Terrazzo Mechanic Helper Name Role Phone [facility], [place] [facility] Primary Care Provider Allergies No [...] Bipolar disorder 01/25/2017 Overview (01/25/2017): Diagnosed in [place] Mixed obsessional thoughts and acts 01/25/2017 Overview (01/25/2017): Diagnosed in [place] Labor and delivery indication [...] CDT ABSTRACT HIV Routine 04/28/2022 2:58 PM PHLEBOTOMY INSTRUCTOR PAP IMAGED THIN LAYER SCREEN Routine 08/05/2012 [...] - BLOOD ORDERABLES Final Result [facility] [address] [facility] [address] [place] [address], [facility] [phone] * Hepatitis C antibody (10/13/2022 1:14 PM [...] [facility]/PROT/ENDO [facility] Core/Prot/Endo [address] [facility] [address], [address] [place] [address], [facility] [phone] * ABSTRACT HIV (04/28/2022 2:58 PM PHLEBOTOMY INSTRUCTOR) Pathologist [facility] HIV 1&2 EXT Non-Reacti ve [facility] Comment:SEE SCAN FOR REFEREN CE RANGE Blood 04/28/2022 2:58 PM PHLEBOTOMY INSTRUCTOR Narrative [facility] - 04/28/2022 2:58 PM PHLEBOTOMY INSTRUCTOR [facility] LAB RESULTS us Provider Outside LAB - HIM EXTERNAL RESULT Final Result [facility] [address] [place] [address], [facility] [phone] * PAP imaged thin layer, screen (08/05/2012 12:00 AM CDT) PAP GUILLERMINA Manzo Report Patient Name: KAYLEIGH LOCKWOOD MR#: [id number] Specimen #: [id number] Collected: 08/05/2012 Received: 08/08/2012 Reported: 08/09/2012 13:41 [...] DC Thayer (ASCP) Processed and screened at [facility], [facility] CLINICAL HISTORY: LMP: 04/21/2012 , Papanicolaou Test Limitations: Cervical cytology is a screening test with limited sensitivity; regular screening is critical for cancer prevention; Pap tests are primarily effective for the diagnosis/preventi on of squamous cell carcinoma, not adenocarcinomas or other cancers. TESTING LAB LOCATION: [facility] [address] [place] [address] COLLECTION SITE: Client: [facility] Location: [facility] (R) COPATH Cytologic material (specimen) 08/05/2012 08/08/2012 12:52 PM CDT Berny Lopez MD LAB - OPTIME CLINICAL SPECIMEN Final Result COPATH from Last 3 Months or Most Recently Relevant to Health Maintenance Insurance [facility] none (Work) [id number] [place] [id number] Advance Directives For more information, please contact: [phone] * Full Code (Latest Code Status on File) Date Activated Date Inactivated Comments 10/13/2022 12:39 PM 10/16/2022 4:16 PM All basic a nd advanced life-sustaining interventions are performed as appropriate Question Answer Comments Code status determined by: Unable to dis cuss and no AD/POLST on file; continue PREVIOUSLY ORDERED code status Care Teams Terrazzo Mechanic Helper Relationship Specialty Start Date End Date [address] [address] PCP - General 09/25/18
--- OUTSIDE RECORDS SUMMARY | 2024-02-24 15:48 | XMS_ITS | Clinical Summary ---
Author Organization [facility] Address [place], [place] [address] Care Team Providers Care Fairing Worker Name Role Phone Sarwat Miles MD Unavailable + Lamar Mayer RN Unavailable [phone] Unavailable [phone] Kajal Barrera MD Unavailable [phone] Kajal Barrera MD Primary Care Provider Allergies [...] directed to schedule at the front office specialist on the way out, or to call [facility] within 2 business days to schedule follow up. [facility] Supervision of high-risk Overview (01/10/2024): Kayleigh Stahl : 1990 MPP ULTRASOUND/TESTING PATIENT MPP CONSULT ON 08/09/23 (Previous MPP consult 2022 with CB) Support person name: Erik Skin Toggler: Yes - Setswana ULTRASOUND TYPE: 01/12 Growth/BPP/NST REASON FOR VISIT: [...] mutation 2016 - Was traveling back from [place] and attributed to prolonged immobilization 2022 - [...] 10/12/23 20w4d EFW 328 grams, percentile: 23 ([facility] L2) ECHO: REFERRING PROVIDER/CLINIC: DARIO Vasquez [place] Primary provider approves scheduling of recommended ultrasounds/testing: Yes SPECIALISTS/CONSULTS: Include: Specialty MD Clinic Name Phone# [place] and ADDED TO PATIENT CARE TEAM Lisa Holt, [facility] GENETICS: Declined/Not done CARE COORDINATION: PERTINENT [...] as recommended -Begin weekly testing scheduled with [facility] (12/09/23) -Present findings are reassuring. -A follow up ultrasound for growth is recommended in 6 weeks and is scheduled today with [facility] Preexisting hypertension com plicating , antepartum, third trimester 05/06/2022 Overview (11/10/2023): [facility] Consult Dr. Odell 08/09/23 # Chronic HTN: The cardiovascular changes associated with include a decrease in blood pressure during the midtrimester with increase back to baseline in the third trimester. This decline in blood pressure does not always occur in women with chronic hypertension. While historically tight blood pressure control has been avoided during , recent studies including the CHAP trial ([facility] 2021) have shown improved maternal [...] right 04/09/2017 Overview (11/30/2022): CT scan 04/07/17 [facility] - repeat CT 04/20/17 negative [...] (11/11/2023): US OB FOLLOW UP PER FETUS (95945.0) +Umbilical artery doppler (91429.00) 11/11/23 Referred By: KAJAL BARRERA MD INDICATION: [...] start at 28 weeks and scheduled with [facility] today. -Repeat growth ultrasound in 3 weeks scheduled with [facility] today. -The patient has scheduled future ultrasounds with [facility]. -When FGR is mild (EFW > [...] in f irst trimester, antepartum 05/06/2022 11/10/2023 [facility] Supervision of high-risk 05/04/2022 07/15/2023 Overview (05/04/2022): [facility] CONSULTATION ON 05/06/22 REASON FOR CONSULT: [...] 7w1d REFERRING PHYSICIAN/PHONE/LAST UPDATE: Kajal Barrera MD [place] [phone] Primary MD approves scheduling of recommended ultrasounds/testing: Yes SPECIALISTS/CONSULTS: Hematology Dr Cody Estes [facility] [phone] LV 06/01/17 Include: Specialty MD Clinic Name [...] Overview (06/09/2017): 06/09/17 signed .Rosmery Villalobos DNP, SAWSMITH, ENGAGEMENT LEAD/psychiatry Regular astigmatism of both eyes 05/06/2017 10/12/2023 [...] Department Care Team Description 02/14/2024 Lab Requisition [facility] [phone] Erma Mina MD 02/11/2024 Orders Only [facility] Scanner 1 scan: (1-Ord) [place], DELIVERY, 02/11/2024 02/08/2024 Orders Only [facility] Scanner 1 scan: (1-Ord) [facility] OB BIOPHYSICAL PROFILE, 02/08/2024 02/03/2024 Telephone [facility] [address] [place] [address] Betsey Crawford MD Appointment (Reschedule) 02/02/2024 Telephone [facility] [address] [place] [address] Kajal Barrera MD Follow Up 02/01/2024 Orders Only [facility] Scanner 1 scan: (1-Ord) [facility], OB BPP W/OB F/U, 02/01/2024 01/28/[address] [address] Kajal Barrera MD Referral 01/25/2024 Orders Only [facility] Scanner 1 scan: (1-Ord) [facility] OB BIOPHYSICAL PROFILE, 01/25/2024 01/25/[address] [address] Kajal Barrera MD Follow Up (Anxiety/medication management) 01/24/[address] [address] Kajal Barrera MD Referral (Mental Health) 01/20/2024 Orders Only [facility] Scanner 1 scan: (1-Ord) [facility] OB, 01/20/2024 01/11/2024 Orders Only [facility] Scanner 1 scan: (1-Ord) [facility] OB BIOPHYSICAL PROFILE, 01/11/2024 01/10/[address] [address] Kajal Barrera MD Referral (DENIED CLAIM, RESTRICTED PATIENT NEEDING REFERRAL) 01/05/2024 10:00 AM CDT Office Visit [address] [address] Kajal Barrera MD Medication Management 01/05/2024 Travel 01/04/[address] [address] Kajal Barrera MD Refill Request (Mirtazapine) 12/30/2023 Orders Only [facility] Scanner 1 scan: (1-Ord) [facility], OB BIOPHYSICAL PROFILE, 12/30/2023 12/28/2023 Telephone [facility] [address] [place] [address] Kaajl Barrera MD Referral (DENIED CLAIM) 12/23/2023 9:01 AM CDT - 12/23/2023 11:59 PM CDT Hospital Encounter [facility] [address] [address] Wood Jimenez MD Supervision of high risk [...] trimester 12/23/2023 Travel 12/21/2023 Orders Only [facility] Scanner 1 scan: (1-Ord) [facility], OB BPP W/UA DOPPLER, 12/21/2023 12/17/2023 3:30 PM CDT - 12/17/2023 6:30 PM CDT Hospital Encounter [facility] [address] [place] [address] Lakesha Mccray MD Discharge Disposition: Home Self Care 12/17/2023 Travel 12/14/2023 Telephone [facility] [address] [facility] [place] [address] Kajal Barrera MD Appointment 12/14/2023 Refill [facility] [address] [facility] [place] [address] Kajal Barrera MD Refill Request (Mirtazapine) 12/02/2023 9:53 AM CDT - 12/02/2023 11:59 PM CDT Hospital Encounter [facility] [address] [facility] [address] [place] [address] Wood Jimenez MD Circumvallate placenta during in [...] in second trimester 12/02/2023 Travel 11/29/2023 Telephone [facility] [address] [facility] [address] [place] [address] Leola Prakash MD Appointment Reminder (Pre-Intake call for in person appt on 12/14/23 at 1:00 pm) 11/24/2023 10:30 AM CDT Office Visit [facility] [address] [place] [address] Lisa Holt, [facility] Mental Health Consultants Visit; Trmt Plan 11/24/2023 Travel from Last 3 Months Immunizations Name Administration Dates Next Due COVID-19 vaccine ([employer] 30mcg/0.3mL) 12YO+ BIVALENT PF, MDV 04/22/2022 Influenza, IIV4 12/14/2022, 3,12/10/2021,01/28,03/13/2020,12/25/2018,01/29/2017 Pneumococcal Conj 20-valent (Prevnar 20) 12/14/2022 RSV, Bivalent Vaccine Recons tituted (Abrysvo 120MCG/0.5mL) 01/04/2024 Tdap 12/21/2023, 3,09/01/2022,01/29,11/10/2012 Family History Medical History Relation Name Comments Other Father dad was in snf and not present Anxiety disorder Maternal Aunt [...] 0 Joami l NATALIJUAN SAUMYA E Delivery Location:[facility] Comments:IUFD of uncer tain cause, induction 2014 Term 40w 0d F Livin g Complications:Hypertension a ffecting Delivery Location:[facility] 2016 Term 39w 1d 7h 04m 5h 27m/1h 26m/0h 11m 3.27 kg (7 lb 3.3 oz) M Vag-Sp ont Epidur al N Livin g 8 9 MANISHA Charles,BAB Norma Bates MD Delivery Location:[facility] 2022 Term 37w 0d M VAGINA L LACEY Livin g Delivery Location:[facility] Current Summary Episode Dates Number of [...] - 30w6d - Louisa De Leon RN [facility] Testing (BPP/NST) visit Patient at [facility] Clinic for testing @ 30w6d gestation due to Hx 31w IUFD . Due to language barrier, a professional line assigner was provided for entire visit. Patient admitted to the testing room. Placed on monitor for non stress test (NST) and uterine activity assessment as part of her Biophysical Profile. BPP to follow. Nursing interpretation of monitor strip: Reactive Non-Stress Test. Refer to the Assessment Flowsheet (#[id number]) for further testing results. She describes daily [...] primary for her care and to see [facility] weekly. Calendar printed out for Kayleigh and states that she will try to make it to appointments but sometimes it is difficult to make it because of the distance necessary to travel. Current testing plan Surveillance BPP/NST (weekly) in [facility] Clinic. Routine OB care with primary [...] 12/18/2023 - 30w1d - Hamida Silver RN Skin Toggler Note for Nursing and Non-Nursing Staff Data: Language Barrier: Limited Portuguese Proficiency - language spoken by the patient: Setswana Kayleigh Stahl and/or family was informed of right to marketing recruiter services at no cost to them. Action: Encouraged patient, or patient s cue worker on behalf of the patient, to use an [employer] Skin Toggler rather than a family member or a friend: yes Skin Toggler Services: accepted Interpreted for: Nurse Response: Skin Toggler will be used for: Effective communication for assessment, diagnosis and treatment, Medication Reconciliation, Discharge, Informed Consent, Surgical/Procedural care throughout the patient encounter, and Teaching/Education Interpreting Resource: Telephone - Certified Language International (CLI) Skin Toggler Arrival/Start Time: 1530 12/17/2023 - 30w0d - [...] 12/02/2023 - 27w6d - Wood Jimenez MD [facility]/SW OB FOLLOW UP PER FETUS (16890.0) 27w6d Estimated Date of Delivery: 02/25/24 33 y.o. [id number] Your patient had an ultrasound with [facility] on 12/02/23 . The report is ready and can be found in the Results review section of the [facility] chart. The Impression from the report is [...] second trimester O10.912 Prior with demise O09.299 [facility] Supervision of high-risk O09.90 Maternal obesity, antepartum, second trimester O99.212 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, antepartum O43.112 Pulmonary embolism on long-term anticoagulation therapy (HC) I26.99, Z79.01 History of delivery, currently in second trimester O09.892 OB FOLLOW UP PER FETUS (35018.0) Referred By: KAJAL BARRERA MD Indications Code [...] as recommended -Begin weekly testing scheduled with [facility] (12/09/23) -Present findings are reassuring. -A follow up ultrasound for growth is recommended in 6 weeks and is scheduled today with [facility] COMMENT: The patient was seen by [...] as needed. Medical Decision Making: Moderate Level 65399 Moderate number/complexity of problems including an undiagnosed [...] Services Provided: Procedures Code FOLLOW UP GROWTH 23771.0 Thank you for allowing us to participate in her care Wood Jimenez MD Maternal /Critical Care Medicine [facility] [phone] office [phone] Cell/text Progress Notes - Hospital En counter - 11/11/2023 - GA:24w6d 11/11/2023 - 24w6d - Wood Jimenez MD [facility] OB FOLLOW UP PER FETUS (07673.0) +Umbilical artery doppler (01477.00) 24w6d Estimated Date of Delivery: 02/25/24 33 y.o. [id number] Your patient had an ultrasound with [facility] on 11/11/23 . The report is ready and can be found in the Results review section of the [facility] chart. The Impression from the report is [...] P05.9 US OB FOLLOW UP PER FETUS (11020.0) +Umbilical artery doppler (94292.00) Referred By: KAJAL BARRERA MD INDICATION: Indications [...] start at 28 weeks and scheduled with [facility] today. -Repeat growth ultrasound in 3 weeks scheduled with [facility] today. -The patient has scheduled future ultrasounds with [facility]. -When FGR is mild (EFW > [...] to the patient and communication facilitated with line assigner on phone. Possible etiologies for FGR include [...] recent studies including the CHAP trial ([facility] 2021) have shown improved maternal [...] due to hx PE x2 - Maternal lawn care technician (Ami Longtin, RN) updated on the patient's plan of care today Medical Decision Making: Moderate Level 26801 Moderate number/complexity of problems including an undiagnosed [...] Services Provided: Procedures Code FOLLOW UP GROWTH 92342.0 UMBILICAL ARTERY DOPPLER 67598.0 41906.0 Thank you for allowing us to participate in her care Wood Jimenez MD Maternal /Critical Care Medicine [facility] [phone] office [phone] Cell/text Progress Notes - Hospital En counter - 11/01/2023 - GA:23w3d 11/01/2023 - w3d - Yazmin Carlos RN Patient presented to ED for chest pain. She is a 33yo at 23w3d who doctors in [place]. Denies vaginal bleeding, leaking of fluid, or [...] 10/22/2023 - 22w0d - Rosa Craft RN Skin Toggler used for encounter: Kayleigh complaints of vomiting, [...] next week to treat anxiety/GI upset symptoms terminal superintendent. Oncoming RN will call MD with UA results and update following medication administrations. Rosa Craft RN .................... 10/22/2023 7:51 PM Progress Notes - Hospital En counter - 10/11/2023 - GA:20w3d 10/12/2023 - - Rosa Craft RN Skin Toggler used for encounter. Pt states she feels [...] GA:11w3d 08/09/2023 - - Deisy Bañuelos RN [facility] Consultation Visit Patient here for consultation due to h/o of PP PE x 2, IUFD at 31w6d. Is currently @ 11w3d. Telephone line assigner used throughout visit. Assessment Histories reviewed today include: Past Medical History, Past Surgical History, Social History and Family History and Obstetric History. Refer to the corresponding sections of the history section of [facility] chart and the [facility] Navigator for details. Assessment: Patient's perception of movement: Has not felt movement yet. Normal movement discussed. heart rate observed during brief bedside ultrasound. Preferred delivery location: [facility] Education Some basic routine education done during assessment. See patient education section for details. Patient states that all her questions were answered. Scheduled to see Dr Odell today. After Visit Summary created, discussed and supplied to patient? Declined - Setswana Speaking. Medications must be prescribed by Dr. Barrera. Recommendations for Lovenox dosing sent by Dr. Odell. Maternal Hot Air Furnace Installer And Repairer will reach out to discuss with pt [...] TRACKING EVENT Routine 02/11/2024 7: 04 PM ATHLETIC DIRECTOR PATH TISSUE EXAM PLACENTA Routine 02/11/2024 7:04 PM ATHLETIC DIRECTOR SCAN-OPERATIVE/PROC EDURE REPORT 02/11/2024 12:00 AM ATHLETIC DIRECTOR SCAN-ULTRASOUND REPORT 02/08/2024 12:00 AM ATHLETIC DIRECTOR SCAN-ULTRASOUND REPORT 02/01/2024 12:00 AM CDT SCAN-ULTRASOUND [...] HIV-1/O/2, 4TH GENERATION Routine 04/08/2022 1:05 PM ATHLETIC DIRECTOR Supervision of high risk in first trimester LC HCV ANTIBODY RFX TO QUANT PCR Routine 04/08/2022 1:05 PM ATHLETIC DIRECTOR Supervision of high risk in first trimester HPV HIGH RISK Routine 12/10/2021 4:35 PM CDT Pap smear for cervical cancer screening from Last 3 Months or Most Recently Relevant to Health Maintenance Results * LAB TRACKING EVENT (02/11/2024 7:04 PM ATHLETIC DIRECTOR) Other (Other) Client Collect / Unknown 02/11/2024 7:04 PM ATHLETIC DIRECTOR 02/14/2024 1:56 PM ATHLETIC DIRECTOR Erma Mina MD LAB DOMINIC O NLY [facility] [address] [place] [address], * PATH TISSUE EXAM PLACENTA (02/11/2024 7:04 PM ATHLETIC DIRECTOR) Case Report Pathology Report Case: [id number] Authorizing Provider: Erma Mina Collected: 02/11/2024 Francois Husain MD Ordering Location: [facility] Received: 02/14/2024 0897 Pathologist: Jason Hooker MD Specimen: Placenta 02/15/2024 4:19 PM ATHLETIC DIRECTOR [facility] Final Diagnosis A) PLACENTA, [...] chorangiosis 2. See comment 02/15/2024 4:19 PM ATHLETIC DIRECTOR [facility] Comment The earliest histologic [...] Pediatr Dev Pathol. 2003;6:435-48. 02/15/2024 4:19 PM [facility] Clinical Information 33-year-old G5, P5, delivery at 37 weeks 2 days, 2625 g. Maternal hypertension. 02/15/2024 4:19 PM [facility] Gross Description A) Received fresh labeled [...] parenchyma. No masses or lesions are identified. Usability Specialist sections are submitted: 1. membranes and insertion 2. Umbilical cord 3. Umbilical cord insertion site 4. surface lesion 5-6. Full-thickness central disc Time and date in formalin: 1616 on 02/14/2024 STN 02/14/2024 02/15/2024 4:19 PM [facility] Microscopic Description The final diagnosis is based on microscopic examination of appropriate sections of all specimens. 02/15/2024 4:19 PM ATHLETIC DIRECTOR [facility] Additional Information Interpreted at [facility] - [address] [address] 02/15/2024 4:19 PM ATHLETIC DIRECTOR [facility] Tissue SPECIMEN FROM PLACENTA / Unknown 02/11/2024 7:04 PM ATHLETIC DIRECTOR 02/14/2024 2:50 PM ATHLETIC DIRECTOR Erma Mina MD PATHOLOGY/ CYTOLOGY [facility] [address] [place] [address], * SCAN-OPERATIVE/PROCEDURE REPORT (02/11/2024 12:00 AM ATHLETIC DIRECTOR) Scanner OTHER * SCAN-ULTRASOUND REPORT (02/08/2024 12:00 AM ATHLETIC DIRECTOR) Only the most recent of7 resultswithin the time period is included. Anatomical Region Laterality Modality Other Scanner OTHER * BPP with NST (CPT 97762.0) (12/23/2023 10:06 AM CDT) Anatomical Region Laterality [...] were given to the patient by the director presales. New government regulations related to the Cures act require that this note be released to the patient immediately, sometimes before the referring provider has been contacted. Services Provided: Procedures Code BPP/NST 18033.0 Procedure Note Pineda Monzon, DO - 12/23/2023 Referred By: KAJAL BARRERA MD IndicationsCode 30 weeks gestation of uzpioilfwW1C.30 Maternal Obesity - BMI >35 (39) CHTN [...] were given to the patient by the director presales. New government regulations related to the Cures act requirethat this note be released to the patient immediately, sometimes before the referringprovider has been contacted. Services Provided: ProceduresCode [facility]/FPV00378.0 Wood Jimenez MD US * (ABNORMAL) URINALYSIS MICROSCOPIC (12/17/2023 3:44 PM CDT) RBC 0-2 0-2, None Seen /HPF 12/17/2023 4:13 PM CDT [facility] WBC 3-5 0-2, 3-5, None Seen /HPF 12/17/2023 4:13 PM CDT [facility] BACTERIA Moderate(A ) None Seen, Rare, Few Bacteria/ HPF 12/17/2023 4:13 PM CDT [facility] EPITHELIAL CELLS Many(A) None Seen, Few Epi/HPF 12/17/2023 4:13 PM CDT [facility] Urine URINE SPECIMEN / Unknown Non-Blood / Unknown 12/17/2023 3:44 PM CDT 12/17/2023 3:48 PM CDT Lakesha Mccray MD URINE [facility] [address] [place] [id number] * (ABNORMAL) Urinalysis W Reflex Microscopic if Positive (12/17/2023 3:44 PM CDT) COLOR Yellow Yellow Color 12/17/2023 3:54 PM CDT [facility] CLARITY Clear Clear Clarity 12/17/2023 3:54 PM CDT [facility] SPECIFIC GRAVITY,URINE >=1.030(A) 1.010, 1.015, 1.020, 1.025 12/17/2023 3:54 PM CDT [facility] PH,URINE 6.0 6.0, 7.0, 8.0, 5.5, 6.5, 7.5, 8.5 12/17/2023 3:54 PM T [facility] UROBILINOGEN,QU ALITATIVE Normal Normal EU/dl 12/17/2023 3:54 PM CDT [facility] PROTEIN, URINE Trace(A) Negative mg/dL 12/17/2023 3:54 PM T [facility] GLUCOSE, URINE Negative Negative mg/dL 12/17/2023 3:54 PM T [facility] KETONES,URINE Trace(A) Negative mg/dL 12/17/2023 3:54 PM T [facility] BILIRUBIN,URINE Abnormal(A) Negative 12/17/19 3:54 PM T [facility] Comment:A variety of metabol ites and/or medications may result in a positive bilirubin result. Clinical correlation is recommended. OCCULT BLOOD,URINE Negative Negative 12/17/2023 3:54 PM T [facility] NITRITE Negative Negative 12/17/2023 3:54 PM T [facility] LEUKOCYTE ESTERASE Negative Negative 12/17/2023 3:54 PM T [facility] Urine URINE SPECIMEN / Unknown Non-Blood / Unknown 12/17/2023 3:44 PM CDT 12/17/2023 3:48 PM CDT Lakesha Mccray MD URINE Performing Organization Address City/State/[facility] Co de Phone Number [facility] [address] [place] [address] * Growth Follow Up Any Trimester (CPT 43173) If BPP w/NST needed use Testing section for order (12/08/2023 1:40 PM CDT) Anatomical Region Laterality Modality , 2or 3 TRIMESTER Ultrasound 12/02/2023 10:1 9 AM CDT Narrative 12/02/2023 10:59 AM CDT Referred By: KAJAL BARRERA MD Indications Code 27 weeks gestation of Z3A.27 Maternal Obesity - BMI >35 (39) CHTN - no meds Hx IUFD at 31w6d Hx of PE x2 [facility] consult Dr. Odell 08/09/23 Meds - [...] as recommended -Begin weekly testing scheduled with [facility] (12/09/23) -Present findings are reassuring. -A follow up ultrasound for growth is recommended in 6 weeks and is scheduled today with [facility] COMMENT: The patient was seen by [...] as needed. Medical Decision Making: Moderate Level 69145 Moderate number/complexity of problems including an undiagnosed [...] Services Provided: Procedures Code FOLLOW UP GROWTH 94299.0 Procedure Note Wood Jimenez MD - 12/02/2023 Referred By: KAJAL BARRERA MD IndicationsCode 27 weeks gestation of kjskiqqjcY4V.27 Maternal Obesity - BMI >35 (39) CHTN [...] as recommended -Begin weekly testing scheduled with [facility] (12/09/23) -Present findings are reassuring. -A follow up ultrasound for growth is recommended in 6 weeks and isscheduled today with [facility] COMMENT: The patient was seen by [...] discussed asneeded. Medical Decision Making: Moderate Level 39649 Moderate number/complexity of problems including an undiagnosed [...] health, etc. Services Provided: ProceduresCode FOLLOW UP [id number] Wood Jimenez MD US * LC HCV ANTIBODY RFX TO QUANT PCR (04/08/2022 1:05 PM ATHLETIC DIRECTOR) HCV Ab <0.1 0.0 - 0.9 s/co ratio 04/10/2022 4:08 PM [facility]TH[facility]IC [facility] Blood BLOOD SPECIMEN / Unknown Venipuncture / Unknown 04/08/2022 1:05 PM ATHLETIC DIRECTOR 04/08/2022 1:08 PM ATHLETIC DIRECTOR Narrative [facility] - 04/10/2022 4:08 PM ATHLETIC DIRECTOR Performed at: [address] [id number] Optomechanical Technician: Zafar Lama MD, Phone: [phone] Kajal Barrera MD LABORATORY Performing Organization Address City/[facility]/ZIP Co de Phone Number [facility] ([facility]) [address] [place] [address] * LC HIV-1/O/2, 4TH GENERATION (04/08/2022 1:05 PM ATHLETIC DIRECTOR) HIV Scr 4th Gen Non Reactive Non Reactive 04/10/2022 9:09 AM ATHLETIC DIRECTOR [facility] ([facility] [facility]) Comment: HIV Negative HIV-1/HIV-2 antibodies and HIV-1 p24 antigen were NOT detected. There is no laboratory evidence of HIV infection. Blood BLOOD SPECIMEN / Unknown Venipuncture / Unknown 04/08/2022 1:05 PM ATHLETIC DIRECTOR 04/08/2022 1:08 PM ATHLETIC DIRECTOR Narrative [facility] ([facility]) - 04/10/2022 9:09 AM ATHLETIC DIRECTOR Performed at: - [address] [id number] Optomechanical Technician: Zafar Lama MD, Phone: [phone] Kajal Barrera MD LABORATORY Performing Organization Address [facility] Co de Phone Number [facility] ([facility]) [address] [place] [address] * HPV HIGH RISK (12/10/2021 4:35 PM CDT) TYPE 16 Negative Negative 12/15/2021 5:37 PM CDT [facility] TYPE 18 Negative Negative 12/15/2021 5:37 PM CDT [facility] OTHER HIGH RISK TYPES Negative Negative 12/15/2021 5:37 PM CDT [facility] Other (Cervical) Non-Blood / Unknown 12/10/2021 4:35 PM CDT 12/11/2021 4:11 PM CDT Narrative [facility] - 12/15/2021 5:37 PM CDT HPV types 16, 18, 31, 33, 35, 39, 45, 51, 52, 56, 58, 59, 66 and 68 DNA were undetectable or below the pre-set threshold. Methodology: Jewels Irma 4800 HPV Test Kajal Barrera MD MICROBIOLOGY [facility] [address] [place] [address], from Last 3 Months or Most Recently [...] Comments Code Status Discussion: Discussed Care Teams Fairing Worker Relationship Specialty Start Date End Date Kajal Barrera MD [address] [place] [address] PCP - General Family Practice 01/26/24 Sarwat Miles MD [address] [place] [address] Consulting Physician Surgery - General 06/09/19 Lamar Mayer RN [address] [place] [address] Registered Nurse Registered Nurse 06/09/[address] [place] [address] Registered Dietitian Shearer Helper 06/09/19 Kajal Barrera MD [address] [place] [address] Referring Provider Family Practice 07/15/23
--- OUTSIDE RECORDS SUMMARY | 2024-02-24 15:48 | XMS_ITS | Clinical Summary ---
Author Organization [facility] Address [address] [place] [address] Care Team Providers Care Can Reforming Machine Operator Name Role Phone Doctor, No Primary Care [...] Maternal Grandmother Diabetes Maternal Grandmother Cancer Mother loan analyst cancer of un known origin to patient [...] Comments Blood Pressure 131/90 02/19/2022 6:00 PM CULINARY INTERNSHIP Pulse 79 02/19/2022 6:00 PM CULINARY INTERNSHIP Temperature 36.5 C (97.7 F) 02/19/2022 4:09 PM CULINARY INTERNSHIP Respiratory Rate 21 02/19/2022 6:00 PM CULINARY INTERNSHIP Oxygen Saturation 99% 02/19/2022 6:00 PM CULINARY INTERNSHIP Inhaled Oxygen Concentration - - Weight 112.5 [...] patient's age to complete this topic Insurance [facility] Address: [address] [address] Advance Directives For more information, please contact: [phone] * Full Code (Latest Code Status on File) Date Activated Date Inactivated Comments 12/02/2012 1:52 PM 12/05/2012 6:57 PM Question Answer Comments How was code status determined? Patient Care Teams Can Reforming Machine Operator Relationship Specialty Start Date End Date Doctor, No No ad PCP - General Radiology 02/19/22
--- OUTSIDE RECORDS SUMMARY | 2024-02-24 15:48 | XMS_ITS | Referral Summary ---
Author Organization [facility] Address [address] [place] [address] Care Team Providers Care Structural Fitter Name Role Phone [facility], [facility] Primary Care Provider Allergies No [...] Bipolar disorder 01/25/2017 Overview (01/25/2017): Diagnosed in [place] Mixed obsessional thoughts and acts 01/25/2017 Overview (01/25/2017): Diagnosed in [place] Labor and delivery indication for care or [...] CDT ABSTRACT HIV Routine 04/28/2022 2:58 PM RN PACU PAP IMAGED THIN LAYER SCREEN Routine 08/05/2012 [...] - BLOOD ORDERABLES Final Result UR LABORATORY [facility] Acute Care Lab [address] [facility] [place] [address], [facility] [phone] * Hepatitis C antibody (10/13/2022 1:14 PM [...] UM SPECIALTY CORE/PROT/ENDO UM Specialty Core/Prot/Endo [address] [facility] [address], [address] [place] [address], [facility] [phone] * ABSTRACT HIV (04/28/2022 2:58 PM RN PACU) Pathologist [facility] HIV 1&2 EXT Non-Reacti ve [facility] Comment:SEE SCAN FOR REFEREN CE RANGE Blood 04/28/2022 2:58 PM RN PACU Narrative [facility] - 04/28/2022 2:58 PM RN PACU [facility] AND [facility] LAB RESULTS us Provider Outside LAB - HIM EXTERNAL RESULT Final Result [facility] [address] [place] [address], [facility] [phone] * PAP imaged thin layer, screen (08/05/2012 12:00 AM CDT) PAP GUILLERMINA Manzo Report Patient Name: KAYLEIGH LOCKWOOD MR#: [id number] Specimen #: [id number] Collected: 08/05/2012 Received: 08/08/2012 Reported: 08/09/2012 13:41 [...] DC Thayer (ASCP) Processed and screened at [facility], [facility] CLINICAL HISTORY: LMP: 04/21/2012 , Papanicolaou Test Limitations: Cervical cytology is a screening test with limited sensitivity; regular screening is critical for cancer prevention; Pap tests are primarily effective for the diagnosis/preventi on of squamous cell carcinoma, not adenocarcinomas or other cancers. TESTING LAB LOCATION: [facility] [address] [place] [address] COLLECTION SITE: Client: [facility] Location: RMFP (R) COPATH Cytologic material (specimen) 08/05/2012 08/08/2012 12:52 PM CDT Berny Sergei Lopez MD LAB - OPTIME CLINICAL SPECIMEN Final Result COPATH from Last 3 Months or Most Recently Relevant to Health Maintenance Insurance [facility] none (Work) [id number] [place] [id number] Advance Directives For more information, please contact: [phone] * Full Code (Latest Code Status on File) Date Activated Date Inactivated Comments 10/13/2022 12:39 PM 10/16/2022 4:16 PM All basic a nd advanced life-sustaining interventions are performed as appropriate Question Answer Comments Code status determined by: Unable to dis cuss and no AD/POLST on file; continue PREVIOUSLY ORDERED code status Care Teams Structural Fitter Relationship Specialty Start Date End Date [facility], [address] [address] PCP - General 09/25/18
--- OUTSIDE RECORDS SUMMARY | 2024-02-24 15:48 | XMS_ITS | Referral Summary ---
Author Organization [facility] Address [address] [place] [address] Care Team Providers Care School Business Administrator Name Role Phone Doctor, No Primary Care [...] Comments Blood Pressure 131/90 02/19/2022 6:00 PM AZURE DEVELOPER Pulse 79 02/19/2022 6:00 PM AZURE DEVELOPER Temperature 36.5 C (97.7 F) 02/19/2022 4:09 PM AZURE DEVELOPER Respiratory Rate 21 02/19/2022 6:00 PM AZURE DEVELOPER Oxygen Saturation 99% 02/19/2022 6:00 PM AZURE DEVELOPER Inhaled Oxygen Concentration - - Weight 112.5 kg (248 lb) 12/01/2012 10:03 AM CDT Height 162.6 cm (5' 4) 12/01/2012 10:03 AM CDT Body Mass Index 42.57 12/01/2012 10:03 AM CDT Plan of Treatment Not on file Insurance [facility] Advance Directives For more information, please contact: [phone] * Full Code (Latest Code Status on File) Date Activated Date Inactivated Comments 12/02/2012 1:52 PM 12/05/2012 6:57 PM Question Answer Comments How was code status determined? Patient Care Teams School Business Administrator Relationship Specialty Start Date End Date Doctor, No No ad PCP - General Radiology 02/19/22
[2024-02-24] MEDS: KETOROLAC 30 MG/ML inj IVP ×2 (16:31→22:26)
[2024-02-24] MEDS: OXYCODONE 5 MG TABLET PO ×2 (16:32→22:39)
[2024-02-24] MEDS: ENOXAPARIN 100 MG/ML INJ SUBCUT (17:08)
[2024-02-24] MEDS: VANCOMYCIN 2 GM/400 ML 2 GM/400 ML PIGGYBACK IVPB (17:08)
[2024-02-24] MEDS: LACTATED RINGERS 1000 ML 1,000 ML 125 ML IV (17:09)
[2024-02-24] MEDS: NICOTINE 7 MG PATCH 1 PATCH TRANSDERMA (17:09)
--- NOTE | 2024-02-24 19:07 | PC.NURSE ---
admission-19: The patient presents to the floor for post c section site infection. The site was cleansed with vashe and interdry was applied. The patient reports moderate-severe pain see MAR. The patient also reports chest pressure, PE was R/O with CT. The patient is anticoagulated on lovenox. Patients baby is in the room, strict rules for another adult to be here with the baby present. Breast fed throughout the shift. IV abx infusing in R AC. Regular diet. Guinean speaking, lang interpreter ipad in the room. Call light within reach. Liset MCKINNEY BSN
[2024-02-24] MEDS: ACETAMINOPHEN 500 MG TABLET 1000 MG PO (19:28)
[2024-02-24] MEDS: PIPERACILLIN/TAZOBACTAM 3.375 GM in 0.9 % SODIUM CHLORIDE Mini-bag 100 ML IVPB (20:23)
[2024-02-24] MEDS: SUCRALFATE 1 GM TABLET PO (21:25)
[2024-02-24] MEDS: MIRTAZAPINE 15 MG TABLET 45 MG PO (21:25)
[2024-02-25] VITALS (7 sets, daily range): BP systolic 115–138; BP diastolic 70–90; PULSE 58–68; RESP 16–18; TEMP 36.6–36.8; O2SAT 98–99
[2024-02-25] MEDS: METOCLOPRAMIDE HCL 5 MG/ML INJ 10 MG IVP ×2 (01:14→07:45)
[2024-02-25] MEDS: PIPERACILLIN/TAZOBACTAM 3.375 GM in 0.9 % SODIUM CHLORIDE Mini-bag 100 ML IVPB ×4 (02:05→20:26)
[2024-02-25] MEDS: ACETAMINOPHEN 500 MG TABLET 1000 MG PO ×2 (02:58→12:08)
[2024-02-25] MEDS: OXYCODONE 5 MG TABLET PO ×5 (02:59→20:25)
[2024-02-25] MEDS: KETOROLAC 30 MG/ML inj IVP ×4 (04:45→21:51)
[2024-02-25] MEDS: VANCOMYCIN 1.5 GM/300 ML 1.5 GM/300 ML PIGGYBACK IVPB ×2 (04:46→16:42)
[2024-02-25] MEDS: ENOXAPARIN 100 MG/ML INJ SUBCUT ×2 (04:46→16:41)
[2024-02-25] MEDS: OMEPRAZOLE 20 MG CAPSULE DR 40 MG PO (06:05)
--- NOTE | 2024-02-25 06:33 | PC.NURSE ---
Pt alert and oriented x3. Afebrile. Pt reports 5-7/10 pain at incision site pain managed with scheduled and PRN medication. Pt reported nausea and had 1 emesis 50 ml, Updated MD Contreras, orders given for PRN Reglan. Pt's incision site is CDI with inner dry, no drainage. Pt is up ad frederick, voiding, and tolerating a regular diet.?
--- NOTE | 2024-02-25 07:50 | PM.GYNPNNOR ---
Progress Note: A&P Assessment and plan (1) wound infection: Status: Acute Assessment and Plan: 1. Continue vancomycin 1.5 g IV q.12 hours and Zosyn 3.375 mg q.6 hours. 2. Clinical improvement today. 3. No clinical indication to take the patient to the operating room for debridement at this time. Dr. Lockhart will reassess tomorrow. 4. Plan at least 48 hours of IV antibiotics and if improved will discharge home on oral Augmentin for a total of 14 days of treatment (12 additional days). 5. Prothrombin gene mutation and h/o PE x2: continue lovenox 100mg BID 6. Gastroparesis: continue sucralfate and omeprazole. 7. Mood disorder: Mirtrazine and vistaril. RESISTANCE WELDING MACHINE OPERATOR- PN:Subj Non-OR Subjective Time Seen by Provider: 07:50 Date Seen: 02/25/24 Interval history: S: Visit was performed with a insulation foreman present. Kayleigh is postoperative day 13 from a primary low-transverse section for arrest of dilation, hospital day 1 admission for incision infection and abdominal wall cellulitis on vancomycin 1.5 g every 12 hours and Zosyn 3.375 mg every 6 hours. She has been afebrile since admission. Her white blood cell count has been normal. Today she states she feels somewhat better and the incision is less painful. She has noticed less drainage from the incision overnight. She is tolerating a regular diet, passing flatus and ambulating without difficulty. Her baby is with her in she is . Her partner is also with her. RESISTANCE WELDING MACHINE OPERATOR-PN: Obj Exam Physical Exam: Vital signs: Temp Pulse Resp BP Pulse Ox O2 Del Method 97.5 F L 58 L 16 115/76 99 Room Air 02/24/24 23:42 02/25/24 02:59 02/25/24 02:59 02/25/24 02:59 02/25/24 02:59 02/25/24 02:59 Narrative: General: Pleasant, woman in no acute distress. Vital signs: Included in her electronic medical record. Heart: Regular rate and rhythm without gallop, rub or murmur. Chest: Clear to auscultation bilaterally. Abdomen: Soft, nontender, nondistended with normal bowel sounds throughout. Incision: The skin edges have with a yellow discharge noted. No additional discharge with pressure on the incision. Minimal erythema surrounding the incision. No erythema on the pannus were mons. From Dr. Contreras's note from yesterday this is an improvement. Extremities: no pain or edema RESISTANCE WELDING MACHINE OPERATOR - PN: Obj Data Labs Labs: Laboratory Results - last 24 hr 02/24/24 02/24/24 13:20 14:59 WBC 8.51 RBC 4.91 Hgb 13.9 Hct 43.3 MCV 88 MCH 28 MCHC 32 RDW Coeff of Cira 13.3 Plt Count 377 Neut % (Auto) 58.6 Lymph % (Auto) 34.1 [place] % (Auto) 5.3 Eos % (Auto) 1.5 Baso % (Auto) 0.4 Neut # (Auto) 4.99 Lymph # (Auto) 2.90 [place] # (Auto) 0.50 Eos # (Auto) 0.13 Baso # (Auto) 0.03 Abs Immat Gran (auto) 0.01 Imm/Tot Granulo (auto) 0.1 Sodium 137 Potassium 4.7 Chloride 105 Carbon Dioxide 23 Anion Gap 9 BUN 12 Creatinine 0.6 Estimated Creat Clear 113.01 Estimated GFR 120 Glucose 85 Lactate 1.0 Calcium 9.3 Total Bilirubin 0.5 AST 34 ALT 22 Alkaline Phosphatase 61 Troponin I 0.03 Total Protein 8.0 Albumin 4.3 Urine Color Yellow Urine Appearance Clear Urine pH 6.0 Ur Specific [place] 1.015 Urine Protein Negative Urine Glucose (UA) Negative Urine Ketones Negative Urine Blood 3+ A Urine Nitrite Negative Urine Bilirubin Negative Urine Urobilinogen 0.2 Ur Leukocyte Esterase Negative Urine RBC 0-2 Urine WBC 0-2 Ur Squamous Epith Cells None Urine Bacteria None
[2024-02-25] MEDS: SUCRALFATE 1 GM TABLET PO ×2 (09:08→20:30)
[2024-02-25] MEDS: hydrOXYzine pamoate 25 MG CAPSULE 50 MG PO (09:08)
[2024-02-25] MEDS: NIFEdipine 30 MG TAB.ER.24 PO (09:08)
[2024-02-25] MEDS: IBUPROFEN 600 MG TABLET PO (16:09)
[2024-02-25] MEDS: NICOTINE 7 MG PATCH 1 PATCH TRANSDERMA (16:41)
--- NOTE | 2024-02-25 19:38 | PC.NURSE ---
Patient remains alert and orientedx4. Abdominal wound open to air. Clean with interdry. No drainage noted at the wound site. Patient able to communicate needs. Continues to complain of pain. Rates pain 7/10.PRN pain meds given. Rates pain 6/10 at reassesment.
[2024-02-25] MEDS: MIRTAZAPINE 15 MG TABLET 45 MG PO (20:31)
[2024-02-26] MEDS: PIPERACILLIN/TAZOBACTAM 3.375 GM in 0.9 % SODIUM CHLORIDE Mini-bag 100 ML IVPB ×3 (01:31→16:11)
[2024-02-26 03:00] VITALS: BP 130/80; PULSE 67; RESP 16; TEMP 36.8; O2SAT 97
[2024-02-26] MEDS: KETOROLAC 30 MG/ML inj IVP ×3 (04:35→19:28)
[2024-02-26] MEDS: ENOXAPARIN 100 MG/ML INJ SUBCUT ×2 (04:36→17:20)
[2024-02-26] MEDS: VANCOMYCIN 1.5 GM/300 ML 1.5 GM/300 ML PIGGYBACK IVPB ×2 (04:39→17:12)
--- NOTE | 2024-02-26 06:16 | PC.NURSE ---
End of shift [id number]: Patient AxOx4, pleasant, and cooperative. Afebrile. Abdominal wound open to air. Interdry changed with scant drainage. Patient able to communicate needs. Pt reported pain to the incision site 4-7/10 during the shift. Commissary Production Supervisor utilized PRN and scheduled pain medication, see MAR. Pt tolerating reg diet/fluids well. Pt continent of the bladder. Pt up in room independently. Pt appears resting with family at bedside, call light within reach.
[2024-02-26] MEDS: OMEPRAZOLE 20 MG CAPSULE DR 40 MG PO (06:40)
[2024-02-26 08:20] VITALS: BP 115/77; PULSE 72; RESP 16; TEMP 36.3; O2SAT 98
[2024-02-26] MEDS: SUCRALFATE 1 GM TABLET PO (08:36)
[2024-02-26] MEDS: NIFEdipine 30 MG TAB.ER.24 PO (08:36)
[2024-02-26] MEDS: hydrOXYzine pamoate 25 MG CAPSULE 50 MG PO (08:36)
[2024-02-26] MEDS: DOCUSATE SODIUM 100 MG CAPSULE PO (09:12)
[2024-02-26 09:28] LABS: Basophils Absolute Auto 0.02 K/uL (0.00-0.30); Basophils Percent Auto 0.3 % (0.0-3.0); Eosinophils Absolute Auto 0.25 K/uL (0.00-0.50); Eosinophils Percent Auto 3.2 % (0.0-7.0); Hematocrit 38.2 % (33.0-51.0); Hemoglobin* 12.2 gm/dL (12.0-16.0); Immature Granulocytes Abs Auto 0.01 K/uL (0.00-0.30); Immature Granulocytes Pct Auto 0.1 %; Lymphocytes Absolute Auto 2.03 K/uL (0.90-2.90); Mean Corpuscular HGB Conc 32 gm/dL (32-36); Mean Corpuscular Hemoglobin 28 pg (26-34); Mean Corpuscular Volume 89 fL (80-100); Monocytes Percent Auto 5.1 % (0.0-11.0); Neutrophils Absolute Auto 5.11 K/uL (1.7-7.0); Neutrophils Percent Auto 65.3 % (42.0-72.0); Platelet Count* 359 K/uL (140-440); RDW Coefficient of Variation % 13.1 % (11.5-15.5); Red Blood Count 4.31 m/uL (4.00-5.20); White Blood Count* 7.82 K/uL (4.50-11.00)
[2024-02-26 09:41] LABS: Slide Review Reflex No
[2024-02-26 11:00] VITALS: BP 136/88; PULSE 68; RESP 16; TEMP 36.4; O2SAT 98
[2024-02-26] MEDS: SODIUM CHLORIDE 0.9 % (FLUSH) 10 ML SYRINGE 5 ML IVF (11:12)
[2024-02-26 15:00] VITALS: PULSE 68; RESP 18; O2SAT 98
--- NOTE | 2024-02-26 15:25 | PM.GYNDS1 ---
DS: Providers Provider Date Seen: 02/26/24 Date of admission: 02/25/24 08:58 Primary care physician: Merline Barrera MD Admitting Clinician: Alla Dumont MD Consults: 02/24/24 17:59 Consult to Imaging Account Manager [CONS] Routine Comment: Reason for Consult:: Office Rn Needed Attending Physician on discharge: Alla Dumont MD Date of Discharge: 02/26/24 INSTANT PRINTER OPERATOR-Discharge Summary Hospital Course Hospital Course Narrative: Patient is a 33 year old woman admitted on 02/24/2024 who is status post primary low-transverse section on 02/11/2024. She had a silver dressing placed at that time. She was started on Bactrim for treatment of a superficial wound cellulitis on 02/18/2024. She on 02/24/2024 with worsening pain and redness around the incision, which had begun to exhibit purulent discharge. She was diagnosed with a superficial wound cellulitis not responsive to oral antibiotics. She did have an abdominal and pelvic CT scan on day of admission showing possible small subcutaneous abscesses, but no unified abscess directly beneath the skin incision. A day of admission she was started on vancomycin and Zosyn. On this regimen of antibiotics, she has remained afebrile. Her white count has remained normal throughout her hospital course. Wound cultures at this time are still pending, but preliminary results show Gram-negative rods and Gram-positive cocci. Today, on hospital day 3, she reports that she is doing okay. Pain is still present around her incision, but has improved. Of note, she had had no bowel movement for 5 days, but was able to have 1 today with the help of a laxative. She denies any heavy bleeding; it is intermittent and light. She is her daughter well, who is with her in the hospital. She has no difficulties with urination. For now, she is to be discharged on Augmentin DS b.i.d. and clindamycin 300 mg. She is only to be given 3 these antibiotics, is she will be seen in clinic again on Wednesday, and we may need to adjust antibiotics depending on culture results that will likely return tomorrow. Per Medicaid, there are only 2 providers that can sent prescription for her. Thus, Dr. Barrera, her primary care doctor, was graciously willing to send in these antibiotic prescriptions, in addition to 10 additional tablets of oxycodone. Hospital Course: as in HPI Time Spent with Patient Time attestation: Total time spent providing and/or coordinating discharge services: Time spent: Greater than 30 minutes INSTANT PRINTER OPERATOR - Exam Physical Exam: Vital signs: Temp Pulse Resp BP Pulse Ox O2 Del Method 97.5 F L 68 16 136/88 98 Room Air 02/26/24 11:02/26/24 11:02/26/24 11:02/26/24 11:02/26/24 11:02/26/24 11: Narrative: Physical exam: General: No acute distress Psych: Alert and oriented x3, full affect HEENT: Normocephalic, atraumatic, oropharynx benign Heart: Regular rate and rhythm, no murmur rub or gallop Lungs: Clear to auscultation bilaterally Abdomen: Normoactive bowel sounds, soft, tenderness surrounding, no distension, rebound or guarding, no organomegaly. The incision itself appears quite healthy. Of note, it is directly over an old TET2, and there is black discoloration the healing wound coinciding with the tattooed portion. However, the wound base itself is completely intact and there is no discharge issuing from this; neither is there any erythema. Skin: No lesions or rashes Lower extremities: No edema or erythema INSTANT PRINTER OPERATOR - DS: Data Data Completed and Pending Completed studies during hospitalization: Procedures Delivery of Products of Conception, External Approach (10/21/22) Dilation of Cervix, Via Natural or Artificial Opening (02/10/24) Drainage of Amniotic Fluid, Therapeutic from Products of Conception, Via Natural or Artificial Opening (02/10/24) Extraction of Products of Conception, Low, Open Approach (02/10/24) Introduction of Other Hormone into Peripheral Vein, Percutaneous Approach (02/10/24) Release Omentum, Open Approach (02/10/24) Labs on day of discharge: Labs from last 24 hours 02/26/24 09:12 WBC 7.82 RBC 4.31 Hgb 12.2 Hct 38.2 MCV 89 MCH 28 MCHC 32 RDW Coeff of Cira 13.1 Plt Count 359 Neut % (Auto) 65.3 Lymph % (Auto) 26.0 [place] % (Auto) 5.1 Eos % (Auto) 3.2 Baso % (Auto) 0.3 Neut # (Auto) 5.11 Lymph # (Auto) 2.03 [place] # (Auto) 0.40 Eos # (Auto) 0.25 Baso # (Auto) 0.02 Abs Immat Gran (auto) 0.01 Imm/Tot Granulo (auto) 0.1 Preliminary micro results at discharge 02/24/24 14:59 Wound Culture - Preliminary Abdomen Gram negative brenda Gram positive cocci Discharge Plan Discharge Disposition: Home, Self-Care Date of Admission: 02/25/24 08:58 Attending Provider on Discharge: Betsey Lockhart Primary Care Provider: Merline Barrera Condition: Stable Anticipated Discharge Date/Time: 02/26/24 15:46 Discharge Medications: New clindamycin HCl 300 mg capsule 300 mg PO TID 3 Days Qty: 9 0RF amoxicillin-pot clavulanate 875-125 mg tablet 1 tab PO BID Qty: 6 0RF acetaminophen 500 mg Tablet 1,000 mg PO Q6H PRN (Reason: Pain) Qty: 0 0RF ibuprofen 600 mg Tablet 600 mg PO Q6H PRN (Reason: Pain) Qty: 0 0RF Continued DHA 200 mg capsule 200 mg PO DAILY enoxaparin 100 mg/mL syringe 100 mg subcut Q12H 30 Days Qty: 60 6RF hydroxyzine pamoate 50 mg capsule 50 mg PO Q6H PRN mirtazapine 30 mg tablet 45 mg PO QHS polyethylene glycol 3350 [Miralax] 17 gram powder in packet 17 g PO DAILY PRN nifedipine 30 mg tablet extended release 30 mg PO DAILY omeprazole 40 mg capsule,delayed release(DR/EC) 40 mg PO DAILY oxycodone 5 mg tablet 5 mg PO TID PRN (Reason: Pain) sucralfate 1 gram tablet 1 g PO BID Qty: 60 0RF docusate sodium 100 mg capsule 100 mg PO BID PRN (Reason: constipation) Qty: 100 0RF simethicone 80 mg tablet,chewable 80 - 160 mg PO Q4H PRN (Reason: Gas) Qty: 30 0RF lidocaine HCl 4 % adhesive patch,medicated 1 patch topical BID PRN (Reason: pain) Qty: 30 0RF Discharge Orders: Discharge Order (Routine); Ordered 02/26/24 Ordered By: Betsey Lockhart Activity Level: Activity as Tolerated Activity Detail: do not submerge incision under water Discharge Diet: Regular Follow Up Appointments: Erma Mina MD [Staff Physician] - 02/29/24 1:00 pm () Merline Barrera MD [Primary Care Provider] - Forms: [employer] Info Instructions
[2024-02-26] MEDS: NICOTINE 7 MG PATCH 1 PATCH TRANSDERMA (17:20)
--- NOTE | 2024-02-26 19:31 | PC.NURSE ---
Pt pleasant and cooperative. Up independently in room. Pt is breast feeding, sig. other, Erik, in room with baby. Rating pain 5/10, see MAR. No other complaints voiced. Pt denied application chemist for non-medical conversations such as meal ordering and ADLs. Erik picked up medications to allow pt to recieved last to doses of IV antibiotics before DC. Pt will be notified of culture and sensitivities, which are due back tomorrow, and whether changes in PO antibiotics are need. Follow-up with PCP 02/29/24.
--- NOTE | 2024-02-26 19:50 | PC.NURSE ---
Pt discharged @ 194 via wheelchair, back to home. Accompanied by family. IV removed. Discharge forms signed. Pt AxOx4, pain controlled. Final room check complete.
== END 2024-02-26 19:45 | disposition home or self-care (01) | DRG 776 ==
LOC: ED 15:11 → MEDSURG 15:46
PROVIDERS: Obstetrics & Gynecology; Admitting Provider Obstetrics & Gynecology; Emergency Provider Emergency Medicine; PCP Family Medicine; Visit Provider Family Medicine
DX: O86.01 Infection of obstetric surgical wound, superficial incisional site (principal); L03.311 Cellulitis of abdominal wall; L02.211 Cutaneous abscess of abdominal wall; O99.13 Other diseases of the blood and blood-forming organs and certain disorders involving the immune mechanism complicating the puerperium; D68.52 Prothrombin gene mutation; Z86.711 Personal history of pulmonary embolism; Z79.01 Long term (current) use of anticoagulants; O11.5 Pre-existing hypertension with pre-eclampsia, complicating the puerperium; O10.93 Unspecified pre-existing hypertension complicating the puerperium; O99.345 Other mental disorders complicating the puerperium; F32.A Depression, unspecified; F12.11 Cannabis abuse, in remission; K31.84 Gastroparesis; Z60.3 Acculturation difficulty; B96.20 Unspecified Escherichia coli [E. coli] as the cause of diseases classified elsewhere
CPT/HCPCS: 36415; 71275; 74177; 80053; 81001; 83605; 84484; 85025; 87070; 87186; 93005; 94761; 99285; T1013; A9270; G0378; J1171; J1650; J1885; J2405; J2543; J2765; J3372; J7120; Q9967; S4990

== ENCOUNTER 2024-03-06 19:07 | Emergency (ER) | payer MEDICAID, SELFPAY ==
--- OUTSIDE RECORDS SUMMARY | 2024-03-06 19:10 | XMS_ITS | Referral Summary ---
Author Organization [facility] Address [address] [place] [address] Care Team Providers Care Historic Interpreter Name Role Phone [facility], [facility] Primary Care Provider Allergies No known active [...] Bipolar disorder 01/25/2017 Overview (01/25/2017): Diagnosed in [place] Mixed obsessional thoughts and acts 01/25/2017 Overview (01/25/2017): Diagnosed in [place] Labor and delivery indication for care or [...] CDT ABSTRACT HIV Routine 04/28/2022 2:58 PM PAPER TUBE MACHINE OPERATOR PAP IMAGED THIN LAYER SCREEN Routine 08/05/2012 [...] - BLOOD ORDERABLES Final Result UR LABORATORY [facility] Acute Care Lab [address] [facility] [place] [address], [facility] [phone] * Hepatitis C antibody (10/13/2022 1:14 PM [...] UM SPECIALTY CORE/PROT/ENDO UM Specialty Core/Prot/Endo [address] [facility] [address], [address] [place] [address], [facility] [phone] * ABSTRACT HIV (04/28/2022 2:58 PM PAPER TUBE MACHINE OPERATOR) Pathologist [facility] HIV 1&2 EXT Non-Reacti ve [facility] Comment:SEE SCAN FOR REFEREN CE RANGE Blood 04/28/2022 2:58 PM PAPER TUBE MACHINE OPERATOR Narrative [facility] - 04/28/2022 2:58 PM PAPER TUBE MACHINE OPERATOR [facility] LAB RESULTS us Provider Outside LAB - HIM EXTERNAL RESULT Final Result [facility] [address] [place] [address], [facility] [phone] * PAP imaged thin layer, screen (08/05/2012 12:00 AM CDT) PAP GUILLERMINA Manzo Report Patient Name: KAYLEIGH LOCKWOOD MR#: [id number] Specimen #: [id number] Collected: 08/05/2012 Received: 08/08/2012 Reported: 08/09/2012 13:41 [...] DC Thayer (ASCP) Processed and screened at [facility], [facility] CLINICAL HISTORY: LMP: 04/21/2012 , Papanicolaou Test Limitations: Cervical cytology is a screening test with limited sensitivity; regular screening is critical for cancer prevention; Pap tests are primarily effective for the diagnosis/preventi on of squamous cell carcinoma, not adenocarcinomas or other cancers. TESTING LAB LOCATION: [facility] [address] [place] [address] COLLECTION SITE: Client: [facility] Location: RMFP (R) COPATH Cytologic material (specimen) 08/05/2012 08/08/2012 12:52 PM CDT Berny Sergei Lopez MD LAB - OPTIME CLINICAL SPECIMEN Final Result COPATH from Last 3 Months or Most Recently Relevant to Health Maintenance Insurance [facility] none (Work) [id number] [place] [address] Advance Directives For more information, please contact: [phone] * Full Code (Latest Code Status on File) Date Activated Date Inactivated Comments 10/13/2022 12:39 PM 10/16/2022 4:16 PM All basic a nd advanced life-sustaining interventions are performed as appropriate Question Answer Comments Code status determined by: Unable to dis cuss and no AD/POLST on file; continue PREVIOUSLY ORDERED code status Care Teams Historic Interpreter Relationship Specialty Start Date End Date [facility], [address] [address] PCP - General 09/25/18
--- OUTSIDE RECORDS SUMMARY | 2024-03-06 19:10 | XMS_ITS | Clinical Summary ---
Author Organization [facility] Address [address] [place] [id number] Care Team Providers Care Cloth Framer Name Role Phone [facility], [facility] Primary Care Provider Allergies No known [...] Bipolar disorder 01/25/2017 Overview (01/25/2017): Diagnosed in [place] Mixed obsessional thoughts and acts 01/25/2017 Overview (01/25/2017): Diagnosed in [place] Labor and delivery indication for care or [...] CDT ABSTRACT HIV Routine 04/28/2022 2:58 PM [employer] PAP IMAGED THIN LAYER SCREEN Routine 08/05/2012 [...] - BLOOD ORDERABLES Final Result [facility] [address] [facility], [address] [place] [address], [facility] [phone] * Hepatitis C antibody (10/13/2022 1:14 PM [...] [facility] SPECIAL[facility] CORE/PROT/ENDO [facility] Special[facility] Core/Prot/Endo [address] [facility] [address], [address] [place] [address], [facility] [phone] * ABSTRACT HIV (04/28/2022 2:58 PM SALES [employer]) Pathologist [facility] HIV 1&2 EXT Non-Reacti ve [facility] Comment:SEE SCAN FOR REFEREN CE RANGE Blood 04/28/2022 2:58 PM SALES [employer] Narrative [facility] - 04/28/2022 2:58 PM SALES ATT[employer] [facility] RESULTS us Provider Outside LAB - HIM EXTERNAL RESULT Final Result [facility] [address] [place] [address], [facility] [phone] * PAP imaged thin layer, screen (08/05/2012 12:00 AM CDT) PAP GUILLERMINA Manzo Report Patient Name: KAYLEIGH LOCKWOOD MR#: [id number] Specimen #: [id number] Collected: 08/05/2012 Received: 08/08/2012 Reported: 08/09/2012 13:41 [...] DC Thayer (ASCP) Processed and screened at [facility], [facility] CLINICAL HISTORY: LMP: 04/21/2012 , Papanicolaou Test Limitations: Cervical cytology is a screening test with limited sensitivity; regular screening is critical for cancer prevention; Pap tests are primarily effective for the diagnosis/preventi on of squamous cell carcinoma, not adenocarcinomas or other cancers. TESTING LAB LOCATION: [facility] [address] [place] [address] COLLECTION SITE: Client: [facility] Location: [facility] (R) [facility] Cytologic material (specimen) 08/05/2012 08/08/2012 12:52 PM CDT Berny Lopez MD LAB - OPTIME CLINICAL SPECIMEN Final Result [facility] from Last 3 Months or Most Recently Relevant to Health Maintenance Insurance [facility] none (Work) [id number] [place] [id number] Advance Directives For more information, please contact: [phone] * Full Code (Latest Code Status on File) Date Activated Date Inactivated Comments 10/13/2022 12:39 PM 10/16/2022 4:16 PM All basic a nd advanced life-sustaining interventions are performed as appropriate Question Answer Comments Code status determined by: Unable to dis cuss and no AD/POLST on file; continue PREVIOUSLY ORDERED code status Care Teams Cloth Framer Relationship Specialty Start Date End Date [address] [address] PCP - General 09/25/18
--- OUTSIDE RECORDS SUMMARY | 2024-03-06 19:11 | XMS_ITS | Referral Summary ---
Author Organization [facility] Address [address] [place] [address] Care Team Providers Care Reporting Consultant Name Role Phone Doctor, No Primary [...] Comments Blood Pressure 131/90 02/19/2022 6:00 PM [employer] Pulse 79 02/19/2022 6:00 PM [employer] Temperature 36.5 C (97.7 F) 02/19/2022 4:09 PM [employer] Respiratory Rate 21 02/19/2022 6:00 PM [employer] Oxygen Saturation 99% 02/19/2022 6:00 PM [employer] Inhaled Oxygen Concentration - - Weight 112.5 kg (248 lb) 12/01/2012 10:03 AM CDT Height 162.6 cm (5' 4) 12/01/2012 10:03 AM CDT Body Mass Index 42.57 12/01/2012 10:03 AM CDT Plan of Treatment Not on file Insurance [facility] Advance Directives For more information, please contact: [phone] * Full Code (Latest Code Status on File) Date Activated Date Inactivated Comments 12/02/2012 1:52 PM 12/05/2012 6:57 PM Question Answer Comments How was code status determined? Patient Care Teams Reporting Consultant Relationship Specialty Start Date End Date Doctor, No No ad PCP - General Radiology 02/19/22
--- OUTSIDE RECORDS SUMMARY | 2024-03-06 19:11 | XMS_ITS | Clinical Summary ---
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 patient was seen by [...] as needed. Medical Decision Making: Moderate Level 22287 Moderate number/complexity of problems including an undiagnosed [...] Services Provided: Procedures Code FOLLOW UP GROWTH 98074.0 Procedure Note Wood Jimenez MD - 12/02/2023 Referred By: KAJAL BARRERA MD IndicationsCode 27 weeks gestation of [id number] Maternal Obesity - BMI >35 (39) CHTN - no meds Hx IUFD at 31w6d Hx of PE x2 MPP consult Dr. Odell 08/09/23 Meds - Lovenox Therapeutic weight based dosing (100 milligramssubcutaneous 2x daily (goal trough LMW level 0.6-1.0 IU/mL)Prothrombin gen Declined serum screening Prothrombin gene mutation (heterozygous) 10/12/23 [facility] level II : EFW 328 grams [...] as recommended -Begin weekly testing scheduled with [facility] (12/09/23) -Present findings are reassuring. -A follow up ultrasound for growth is recommended in 6 weeks and isscheduled today with [facility] COMMENT: The patient was seen by [...] discussed asneeded. Medical Decision Making: Moderate Level 59375 Moderate number/complexity of problems including an undiagnosed [...] health, etc. Services Provided: ProceduresCode FOLLOW UP [id number] Wood Jimenez MD [place] * LC HCV ANTIBODY RFX TO QUANT PCR (04/08/2022 1:05 PM INCENDIARIES SUPERVISOR) HCV Ab <0.1 0.0 - 0.9 s/co ratio 04/10/2022 4:08 PM INCENDIARIES SUPERVISOR [facility] ([facility]) Blood BLOOD SPECIMEN / Unknown Venipuncture / Unknown 04/08/2022 1:05 PM INCENDIARIES SUPERVISOR 04/08/2022 1:08 PM INCENDIARIES SUPERVISOR [facility] ([facility]) - 04/10/2022 4:08 PM INCENDIARIES SUPERVISOR Performed at: [address] [place] [address] [id number] Director Global Strategic Publisher Sales: Zafar Lama MD, Phone: [phone] Kajal Barrera MD LABORATORY [facility] ([facility]) [address] [place] [address], * LC HIV-1/O/2, 4TH GENERATION (04/08/2022 1:05 PM INCENDIARIES SUPERVISOR) Pathologist [facility] HIV Scr 4th Gen Non Reactive Non Reactive 04/10/2022 9:09 AM INCENDIARIES SUPERVISOR [facility] ([facility]) Comment: HIV Negative HIV-1/HIV-2 antibodies and HIV-1 p24 antigen were NOT detected. There is no laboratory evidence of HIV infection. Blood BLOOD SPECIMEN / Unknown Venipuncture / Unknown 04/08/2022 1:05 PM INCENDIARIES SUPERVISOR 04/08/2022 1:08 PM INCENDIARIES SUPERVISOR Narrative [facility] ([facility]) - 04/10/2022 9:09 AM INCENDIARIES SUPERVISOR Performed at: [address] [place] [address] [id number] Director Global Strategic Publisher Sales: Zafar Lama MD, Phone: [phone] Kajal Barrera MD LABORATORY [facility] ([facility]) [address] [place], [place] [address] * HPV HIGH RISK (12/10/2021 4:35 PM CDT) TYPE 16 Negative Negative 12/15/2021 5:[address] [facility] TYPE 18 Negative Negative 12/15/2021 5:37 PM CDT [facility] OTHER HIGH RISK TYPES Negative Negative 12/15/2021 5:37 PM CDT [facility] Other (Cervical) Non-Blood / Unknown 12/10/2021 4:35 PM CDT 12/11/2021 4:11 PM CDT Narrative [facility] - 12/15/2021 5:37 PM CDT HPV types 16, 18, 31, 33, 35, 39, 45, 51, 52, 56, 58, 59, 66 and 68 DNA were undetectable or below the pre-set threshold. Methodology: Jewels Irma 4800 HPV Test Kajal Barrera MD MICROBIOLOGY [facility] [address] [place] [address], [place] from Last 3 Months or Most [...] Comments Code Status Discussion: Discussed Care Teams Shopping Investigator Relationship Specialty Start Date End Date Kajal Barrera MD [address] [facility] [facility] [place] [address] PCP - General Family Practice 01/26/24 Sarwat Miles MD [address] [place] [address] Consulting Physician Surgery - General 06/09/19 Lamar Mayer RN [address] [place] [address] Registered Nurse Registered Nurse 06/09/[address] [place] [address] Registered Dietitian Purse Maker 06/09/19 Kajal Barrera MD [address] [place] [address] Referring Provider Family Practice 07/15/23
--- OUTSIDE RECORDS SUMMARY | 2024-03-06 19:11 | XMS_ITS | Clinical Summary ---
Author Organization [facility] Address [address] [place] [address] Care Team Providers Care House Steward/Stewardess Name Role Phone Doctor, No Primary Care [...] Maternal Grandmother Diabetes Maternal Grandmother Cancer Mother machine tool technology instructor cancer of un known origin to patient [...] Comments Blood Pressure 131/90 02/19/2022 6:00 PM FARM LOAN REPRESENTATIVE Pulse 79 02/19/2022 6:00 PM FARM LOAN REPRESENTATIVE Temperature 36.5 C (97.7 F) 02/19/2022 4:09 PM FARM LOAN REPRESENTATIVE Respiratory Rate 21 02/19/2022 6:00 PM FARM LOAN REPRESENTATIVE Oxygen Saturation 99% 02/19/2022 6:00 PM FARM LOAN REPRESENTATIVE Inhaled Oxygen Concentration - - Weight 112.5 [...] patient's age to complete this topic Insurance [facility] Advance Directives For more information, please contact: [phone] * Full Code (Latest Code Status on File) Date Activated Date Inactivated Comments 12/02/2012 1:52 PM 12/05/2012 6:57 PM Question Answer Comments How was code status determined? Patient Care Teams House Steward/Stewardess Relationship Specialty Start Date End Date Doctor, No No ad PCP - General Radiology 02/19/22
[2024-03-06 19:27] VITALS: BP 127/84; PULSE 80; RESP 16; TEMP 36.7; O2SAT 97; BMI 40.3
--- NOTE | 2024-03-06 21:05 | CRLHL7_ITS ---
For Patients: As a result of the Cures Act, medical imaging exams and procedure reports are released immediately into your electronic medical record. You may view this report before your referring provider. If you have questions, please contact your health care provider. INDICATION: Possible recurrent wound infection status post on 02/10. TECHNIQUE: CT abdomen and pelvis acquired with 100 cc of Isovue 370 IV contrast. COMPARISON: CT abdomen and pelvis 02/24/2024 in 08/06/2021. FINDINGS: Lower chest: Unremarkable. Liver: Small hypodense lesion with peripheral nodular enhancement, most compatible with a hemangioma, within the posterior right hepatic lobe, unchanged. Gallbladder and bile ducts: Status post cholecystectomy. No abnormal biliary ductal dilatation. Pancreas: 1.6 cm hypodense lesion within the pancreatic neck (249), unchanged compared to the prior exam, though new since 08/06/2021. Spleen: Unremarkable. Normal in size. No masses. Adrenal glands: Unremarkable. No nodules. Kidneys: Unremarkable. No suspicious masses, stones, or hydronephrosis. GI tract: Diverticulosis. Short segment mural thickening and inflammatory stranding about an inflamed diverticulum within the proximal sigmoid colon. No evidence for perforation or abscess formation. No evidence for appendicitis. Vasculature: Abdominal aorta is normal in caliber. Mesenteric arteries are patent. Lymph nodes: No lymphadenopathy. Peritoneum/Abdominal Wall: Postsurgical changes of recent section involving the lower anterior pelvic wall. Multiple medication injection granulomas are noted within the abdominal wall soft tissues. No focal fluid collection within the subcutaneous fat. No intra-abdominal free air or significant free fluid in the pelvis. Pelvis: Recent section changes of the uterus. Otherwise, unremarkable Bones: Unremarkable for age. IMPRESSION: 1. Acute uncomplicated sigmoid colon diverticulitis. 2. No evidence for a postoperative abscess within the subcutaneous fat or within the abdomen and pelvis. 3. 1.6 cm hypodense lesion within the pancreatic neck new since 08/06/2021. Recommend outpatient pancreatic MRI for further characterization. Please note that all CT scans at this facility use dose modulation, iterative reconstruction, and/or weight-based dosing when appropriate to reduce radiation dose to as low as reasonably achievable. Dictated by Glenn Chris MD @ 03/06/2024 10:50:44 PM (Electronically Signed)
--- NOTE | 2024-03-06 21:27 | ED.GENADULT ---
HPI - General Adult General Date Seen: 03/06/24 Chief complaint: Post OB/Post- Complication Stated complaint: Post issue Time Seen by Provider: 03/06/24 20:45 Source: patient and seismic interpreter Mode of arrival: ambulatory History of Present Illness HPI narrative: Patient is a 33-year-old female presenting to emergency department for concern of infection of her surgical site. On 02/11/2024 she had a . She then was admitted to the hospital on 02/24/2024 for is an abscess distal anything for her surgical site. She was started on antibiotics and discharged on 02/26/2024. She states she h and was feeling better and was recently switched to Keflex on 02/29/2020 or and has a day left of her antibiotics. If the past couple days she has been noticing chills, fatigue and worsening abdominal pain and nausea. She states this seems similar to previous time she had a the infection other than there is no erythema around the site. She has also noticed some drainage coming from as the surgical site. She does state the wound edges were previously in from her infection and they do not appear to be any different today. Denies fevers, chest pain, shortness of breath, dizziness, weakness, numbness. Does states he has been having a mild headache. Did vomit a couple days ago but has not vomited since. Related Data Home Medications ?Medication ?Instructions ?Recorded ?Confirmed docosahexaenoic acid 200 mg 200 mg PO DAILY 07/28/23 02/29/24 capsule ( DHA) hydroxyzine pamoate 50 mg capsule 50 mg PO Q6H PRN 12/01/23 02/29/24 mirtazapine 30 mg tablet 45 mg PO QHS 01/20/24 02/29/24 nifedipine 30 mg tablet,extended 30 mg PO DAILY 02/24/24 02/29/24 release omeprazole 40 mg capsule,delayed 40 mg PO DAILY 02/24/24 02/29/24 release oxycodone 5 mg tablet 5 mg PO TID PRN Pain 02/24/24 02/29/24 polyethylene glycol 3350 17 gram 17 g PO DAILY PRN 02/24/24 02/29/24 oral powder packet (Miralax) Previous Rx's ?Medication ?Instructions ?Recorded enoxaparin 100 mg/mL subcutaneous 100 mg subcut Q12H 30 days #60 mL 08/31/23 syringe sucralfate 1 gram tablet 1 g PO BID #60 tabs 02/07/24 docusate sodium 100 mg capsule 100 mg PO BID PRN constipation 02/13/24 #100 caps lidocaine HCl 4 % topical patch 1 patch topical BID PRN pain #30 ea 02/15/24 acetaminophen 500 mg tablet 1,000 mg (2 x 500 mg) PO Q6H PRN 02/26/24 Pain #0 tabs clindamycin HCl 300 mg capsule 300 mg PO TID 3 days #9 caps 02/26/24 ibuprofen 600 mg tablet 600 mg PO Q6H PRN Pain #0 tabs 02/26/24 ciprofloxacin HCl 500 mg tablet 500 mg PO BID #10 tabs 03/06/24 (Cipro) metronidazole 500 mg tablet 500 mg PO Q8H #15 tabs 03/06/24 Allergies Allergy/AdvReac Type Severity Reaction Status Date / Time No Known Drug Allergies Allergy Verified 03/06/24 21:18 Review of Systems Status of ROS: Reports: 10 or more systems reviewed and unremarkable except as noted in History and below [facility] Medical History UTI (urinary tract infection) ?N39.0 - Urinary tract infection, site not specified (ICD-10) pulmonary embolism ?O88.23 - Thromboembolism in the puerperium (ICD-10) Hypokalemia ?E87.6 - Hypokalemia (ICD-10) Chest pain ?R07.9 - Chest pain, unspecified (ICD-10) Gestational diabetes ?O24.419 - Gestational diabetes mellitus in , unspecified control (ICD-10) Chronic hypertension ?I10 - Essential (primary) hypertension (ICD-10) Normal vaginal delivery (10/22/22) ?O80 - Encounter for full-term uncomplicated delivery (ICD-10) Panic attacks ?F41.0 - Panic disorder [episodic paroxysmal anxiety] (ICD-10) Depression ?F32.A - Depression, unspecified (ICD-10) Pulmonary embolism ?I26.99 - Other pulmonary embolism without acute cor pulmonale (ICD-10) Prothrombin gene mutation ?D68.52 - Prothrombin gene mutation (ICD-10) Gastritis ?K29.70 - Gastritis, unspecified, without bleeding (ICD-10) Surgical History Status post primary low transverse section (02/11/24) ?Z98.891 - History of uterine scar from previous surgery (ICD-10) S/P cholecystectomy ?Z90.49 - Acquired absence of other specified parts of digestive tract (ICD-10) S/P laparotomy ?Z98.890 - Other specified postprocedural states (ICD-10) Social History Narrative: SOCIAL She lives in [place] with her partner, her mother, and her children. She works out of her home doing [employer] Abuse: past Her partner is from [place]. He doesn't have a electric screw driver operator's license. What is your current living situation?: I presently have a place to live Problems where you live: no known problems Problems where you live details: NONE In the past 12 months, utilities in danger of being shut off: no In the past 12 mos, have been you worried that your food would run out before you had money to buy more?: never true In the past 12 mos, the food you bought just didn't last and you didn't have money to buy more?: never true Smoking Status: Current every day smoker What tobacco products do you use: cigars How often do you have a drink containing alcohol: never AUDIT-C Alcohol total score: 0 Non-prescribed substance use: former substance user and marijuana (any form) Non-prescribed substance use details: THC How often does anyone, including family, friends and others, physically hurt you: never How often does anyone, including family, friends and others, insult or talk down to you: never How often does anyone, including family, friends and others, threaten you with harm: never How often does anyone, including family, friends and others, scream or curse at you: never service: No Exam Narrative: Exam Narrative: Const: Well-nourished, Well-developed, in moderate distress Eyes: PERRL, no conjunctival injection, and symmetrical lids HENT: Atraumatic external nose and ears. Moist mucous membranes. Neck: Symmetric, trachea midline, No thyromegaly. CVS: RRR, No murmurs or gallops. Peripheral pulses 2+ and equal in all extremities RESP: Unlabored respiratory effort. Clear to auscultation bilaterally. GI: lower abdominal tenderness, no discharge seen from wound. Nondistended, No rebound or guarding. MSK:Extremities w/o deformity, Normal Active ROM Skin: Warm, Dry. No erythema seen Neuro: Normal Muscle tone, No focal neurological deficits. Psych: Awake, Alert, & Oriented x3. Appropriate mood and affect. Const: Vital Signs, click to edit/add: Vital Signs - 24 hr 03/06/24 19:27 03/06/24 21:32 03/06/24 21:57 Temperature 98.1 F Pulse Rate 68 Pulse Rate [Pulse Oximeter] 80 Respiratory Rate 16 16 Blood Pressure [Le ft Upper Arm] 127/84 Pulse Oximetry 97 99 99 Oxygen Delivery Me thod Room Air 03/06/24 23:46 Temperature 98.1 F Pulse Rate Pulse Rate [Pulse Oximeter] 74 Respiratory Rate 16 Blood Pressure [Le ft Upper Arm] 118/70 Pulse Oximetry 99 Oxygen Delivery Me thod Room Air Course Vital Signs Vital signs: Initial Vital Signs Temperature 98.1 F 03/06/24 19:27 Temperature Source Temporal Artery Scan 03/06/24 19:27 Pulse Rate 80 03/06/24 19:27 Respiratory Rate 16 03/06/24 19:27 Blood Pressure 127/84 03/06/24 19:27 Blood Pressure Mean 98 03/06/24 19:27 Blood Pressure Position Sitting 03/06/24 19:27 Pulse Oximetry 97 03/06/24 19:27 Oxygen Delivery Method Room Air 03/06/24 19:27 Vital Signs Temperature 98.1 F 03/06/24 19:27 Pulse Rate 80 03/06/24 19:27 Respiratory Rate 16 03/06/24 19:27 Blood Pressure 127/84 03/06/24 19:27 Pulse Oximetry 97 03/06/24 19:27 Oxygen Delivery Method Room Air 03/06/24 19:27 Temperature 98.1 F 03/06/24 23:46 Pulse Rate 74 03/06/24 23:46 Respiratory Rate 16 03/06/24 23:46 Blood Pressure 118/70 03/06/24 23:46 Pulse Oximetry 99 03/06/24 23:46 Oxygen Delivery Method Room Air 03/06/24 23:46 Medications Administered Medications: Discontinued Medications Generic Name Dose Route Start Last Admin Trade Name Chaka PRN Reason Stop Dose Admin Morphine Sulfate 4 mg 03/06/24 21:06 03/06/24 21:43 Morphine 4 Mg/Ml Inj IVP 03/06/24 21:07 4 mg ONCE ONE Administration Ondansetron HCl 4 mg 03/06/24 21:06 03/06/24 21:43 Ondansetron 2 Mg/Ml Inj IVP 03/06/24 21:07 4 mg ONCE ONE Administration Medical Decision Making MDM Narrative Medical decision making narrative: Patient is a 33-year-old female presenting to the emergency department for concern of an infected incisional site. She is having lower abdominal pain. Differential at this time includes incisional site infection, appendicitis, diverticulitis, SBO. Will do a CBC, BMP and a CT scan abdomen and pelvis with contrast. Morphine given for pain and Zofran given for nausea. Patient is feeling better after the medications. Lab work returned showing no concerning findings. CT scan reviewed by myself and the radiologist shows no evidence of a postoperative abscess, But there is acute uncomplicated sigmoid colon diverticulitis. Is also a new 1.6 cm hypodense lesion within the pancreatic neck that is new. It is recommend she given outpatient pancreatic MRI. This is unlikely related to his symptoms as she is having no epigastric pain. Did add on LFTs and lipase which were both normal. How to treat this diverticulitis is relatively complicated right now. She has been quite a few different antibiotics over the past week and a half. I am concerned that any further antibiotics could put her at risk of C diff. when she would initially was on Augmentin she was having improvement in all of her symptoms but was switched to Keflex due to sensitivities. She grew E coli out of the wound. Once she was switched to Keflex she started having these abdominal symptoms again. I am wondering if the Augmentin was treating some underlying diverticulitis but it is hard to definitively say. This diverticulitis could also be most likely be of completely separate infection but I am concerned as the E coli growing in the wound was resistant to Augmentin, Bactrim,, levofloxacin, ciprofloxacin. This is typically what we would use to treat diverticulitis. Also spoke to her extensively that new resurgence showing that antibiotics are not necessary for diverticulitis. She has had diverticulitis before which she did take antibiotics for. After an extended conversation with her about risks versus benefits of continued antibiotic use it was decided that she will finish out her Keflex prescription tomorrow. 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 I also gave her Zofran via [employer]. Lab Data Labs: Lab Results 03/06/24 03/06/24 Range/Units 21:25 Unknown WBC 11.44 H (4.50-11.00) K/uL RBC 4.55 (4.00-5.20) m/uL Hgb 12.7 (12.0-16.0) gm/dL Hct 39.5 (33.0-51.0) % MCV 87 (80-100) fL MCH 28 (26-34) pg MCHC 32 (32-36) gm/dL RDW Coeff of Cira 13.1 (11.5-15.5) % Plt Count 404 (140-440) K/uL Neut % (Auto) 52.2 (42.0-72.0) % Lymph % (Auto) 39.2 (20-44) % [place] % (Auto) 6.7 (0.0-11.0) % Eos % (Auto) 1.3 (0.0-7.0) % Baso % (Auto) 0.3 (0.0-3.0) % Neut # (Auto) 6.00 (1.7-7.0) K/uL Lymph # (Auto) 4.50 H (0.90-2.90) K/uL [place] # (Auto) 0.80 (0.00-0.90) K/UL Eos # (Auto) 0.10 (0.00-0.50) K/uL Baso # (Auto) 0.00 (0.00-0.30) K/uL Abs Immat Gran (auto) 0.00 (0.00-0.30) K/uL Imm/Tot Granulo (auto) 0.3 % Sodium 141 (135-149) mmol/L Potassium 3.3 L (3.6-5.1) mmol/L Chloride 107 (96-114) mmol/L Carbon Dioxide 29 (20-32) mmol/L Anion Gap 5 L (7-15) mEq/L BUN 13 (5-24) mg/dL Creatinine 0.7 (0.5-1.5) mg/dL Estimated Creat Clear 96.86 Estimated GFR 116 ml/min Glucose 91 (60-115) mg/dL Calcium 9.1 (8.4-10.6) mg/dL Total Bilirubin 0.1 (0.1-1.5) mg/dL Direct Bilirubin 0.1 (0.0-0.5) mg/dL AST 18 (12-35) U/L ALT 24 (4-35) U/L Alkaline Phosphatase 86 (40-150) U/L Total Protein 7.0 (6.0-8.3) g/dL Albumin 4.0 (3.3-5.0) g/dL Lipase 141 (23-300) U/L Imaging Data CT scan abdomen and pelvis: Attestation: I have reviewed the pertinent imaging results. Radiologist's impression: 1. Acute uncomplicated sigmoid colon diverticulitis. 2. No evidence for a postoperative abscess within the subcutaneous fat or within the abdomen and pelvis. 3. 1.6 cm hypodense lesion within the pancreatic neck new since 08/06/2021. Recommend outpatient pancreatic MRI for further characterization. Please note that all CT scans at this facility use dose modulation, iterative reconstruction, and/or weight-based dosing when appropriate to reduce radiation dose to as low as reasonably achievable. Dictated by Glenn Chris MD @ 03/06/2024 10:50:44 PM (Electronic Signature) Discharge Plan Discharge Clinical Impression: Diverticulitis Patient Disposition: Home, Self-Care Condition: Improved Instructions: Diverticulitis (DC) Additional Instructions: Finish out your prescription for Keflex tomorrow. Hold off on picking up the Flagyl and ciprofloxacin until Wednesday. 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 If he started having worsening symptoms an you developed fall smelling diarrhea return to the emergency department for re-evaluation as you may have developed C diff. take the Zofran as needed for your nausea. There was a lesion seen on year pancreas as new compared to previously. Is recommended you follow-up with your primary care provider for an outpatient MRI. Termine beltran receta de Keflex ma?billy. Espera a recoger Flagyl y ciprofloxacina hasta el mi?rcoles. Si los s?ntomas a?n est?n presentes el mi?rcoles, tome los antibi?ticos y comience a tomarlos seg?n las indicaciones. Si bekah s?ntomas comenzaron a empeorar y usted desarroll? diarrea con olor a manjinder?o, regrese al departamento de emergencias para arabella nueva evaluaci?n, ya que es posible que haya desarrollado C diff. tome Zofran seg?n sea necesario para las n?useas. Se observ? arabella lesi?n en el p?ncreas del a?o josafat nueva en comparaci?n con la anterior. Se recomienda que che un seguimiento con beltran proveedor de atenci?n primaria para arabella resonancia magn?edith ambulatoria. Prescriptions: New metronidazole 500 mg tablet 500 mg PO Q8H Qty: 15 0RF ciprofloxacin HCl [Cipro] 500 mg tablet 500 mg PO BID Qty: 10 0RF No Action DHA 200 mg capsule 200 mg PO DAILY enoxaparin 100 mg/mL syringe 100 mg subcut Q12H 30 Days Qty: 60 6RF hydroxyzine pamoate 50 mg capsule 50 mg PO Q6H PRN mirtazapine 30 mg tablet 45 mg PO QHS polyethylene glycol 3350 [Miralax] 17 gram powder in packet 17 g PO DAILY PRN nifedipine 30 mg tablet extended release 30 mg PO DAILY omeprazole 40 mg capsule,delayed release(DR/EC) 40 mg PO DAILY oxycodone 5 mg tablet 5 mg PO TID PRN (Reason: Pain) acetaminophen 500 mg Tablet 1,000 mg PO Q6H PRN (Reason: Pain) Qty: 0 0RF ibuprofen 600 mg Tablet 600 mg PO Q6H PRN (Reason: Pain) Qty: 0 0RF clindamycin HCl 300 mg capsule 300 mg PO TID 3 Days Qty: 9 0RF sucralfate 1 gram tablet 1 g PO BID Qty: 60 0RF docusate sodium 100 mg capsule 100 mg PO BID PRN (Reason: constipation) Qty: 100 0RF lidocaine HCl 4 % adhesive patch,medicated 1 patch topical BID PRN (Reason: pain) Qty: 30 0RF Follow Up/Referrals: Merline Barrera MD [Primary Care Provider] - Stand Alone Forms: [employer] Info Instructions
[2024-03-06 21:32] VITALS: O2SAT 99
[2024-03-06 21:32] LABS: Basophils Percent Auto 0.3 % (0.0-3.0); Eosinophils Percent Auto 1.3 % (0.0-7.0); Hematocrit 39.5 % (33.0-51.0); Hemoglobin* 12.7 gm/dL (12.0-16.0); Immature Granulocytes Pct Auto 0.3 %; Lymphocytes Percent Auto 39.2 % (20-44); Mean Corpuscular HGB Conc 32 gm/dL (32-36); Mean Corpuscular Hemoglobin 28 pg (26-34); Mean Corpuscular Volume 87 fL (80-100); Monocytes Percent Auto 6.7 % (0.0-11.0); Neutrophils Percent Auto 52.2 % (42.0-72.0); Platelet Count* 404 K/uL (140-440); RDW Coefficient of Variation % 13.1 % (11.5-15.5); Red Blood Count 4.55 m/uL (4.00-5.20); White Blood Count* 11.44 K/uL (4.50-11.00)
[2024-03-06] MEDS: MORPHINE 4 MG/ML INJ IVP (21:43)
[2024-03-06] MEDS: ONDANSETRON 2 MG/ML inj 4 MG IVP (21:43)
[2024-03-06 21:48] LABS: Chloride* 107 mmol/L (96-114); Potassium* 3.3 mmol/L (3.6-5.1); Sodium* 141 mmol/L (135-149)
[2024-03-06 21:51] LABS: Anion Gap 5 mEq/L (7-15); Blood Urea Nitrogen* 13 mg/dL (5-24); Carbon Dioxide* 29 mmol/L (20-32); Creatinine* 0.7 mg/dL (0.5-1.5); Est. Creatinine Clearance* 96.86; Estimated Glomerular Filt Rate 116 ml/min
[2024-03-06 21:52] LABS: Calcium* 9.1 mg/dL (8.4-10.6); Glucose* 91 mg/dL (60-115)
[2024-03-06 21:55] LABS: Slide Review Reflex No
[2024-03-06 21:57] VITALS: PULSE 68; RESP 16; O2SAT 99
[2024-03-06 23:39] LABS: Alanine Aminotransferase* 24 U/L (4-35); Alkaline Phosphatase* 86 U/L (40-150); Aspartate Amino Transferase* 18 U/L (12-35); Bilirubin Direct* 0.1 mg/dL (0.0-0.5); Bilirubin Total* 0.1 mg/dL (0.1-1.5); Lipase* 141 U/L (23-300)
[2024-03-06 23:46] VITALS: BP 118/70; PULSE 74; RESP 16; TEMP 36.7; O2SAT 99
== END 2024-03-07 00:06 | disposition home or self-care (01) ==
PROVIDERS: Emergency Provider Student in an Organized Health Care Education/Training Program; PCP Family Medicine
DX: K57.32 Diverticulitis of large intestine without perforation or abscess without bleeding (principal)
CPT/HCPCS: 36415; 74177; 80048; 80076; 83690; 85025; 94761; 96374; 96375; 99284; J2270; J2405; Q9967